=== PATIENT | female | born 1965 | race Caucasian/White ===

== ENCOUNTER 2018-02-05 12:37 | Observation (INO) | payer OTHER, SELFPAY ==
[2018-02-05] VITALS (7 sets, daily range): BP systolic 120–157; BP diastolic 66–79; PULSE 79–139; RESP 16–20; TEMP 36.6–38.1; O2SAT 90–96; BMI 25.7; BMI 28.1; BMI 28.2
--- NOTE | 2018-02-05 12:59 | EKG12_ITS ---
Test Reason : Blood Pressure : / mmHG Vent. Rate : 121 BPM Atrial Rate : 121 BPM P-R Int : 130 ms QRS Dur : 080 ms QT Int : 328 ms P-R-T Axes : 081 -32 083 degrees QTc Int : 465 ms Sinus tachycardia Left axis deviation Nonspecific ST and T wave abnormality Abnormal ECG Confirmed by LOIDA BRAXTON, MARS ([id number]), greeting card editor ÁNGEL SALVADOR ([id number]) on 02/08/2018 1:32:43 PM Referred By: JOVAN Confirmed By:MARS MARISCAL MD
--- NOTE | 2018-02-05 12:59 | RAD_ITS ---
STUDY: X-RAY CHEST REASON FOR EXAM: Female, 53 years old. Cough. Shortness of breath. TECHNIQUE: PA and lateral views of the chest. COMPARISON: None. FINDINGS: EKG electrodes are seen. Hyperinflation. Mild increased markings are seen in the lingular segment of the left upper lobe. Early infiltrate should be ruled out. There is no demonstrated pleural abnormality. Normal size heart. Normal mediastinum and summer. Normal visualized pulmonary arteries. Normal visualized aortic arch and descending thoracic aorta. Normal visualized thoracic spine. Normal visualized ribs, clavicles, and shoulders. There is no demonstrated abnormality of the visualized soft tissue structures of the upper abdomen. RAD/Chest PA and Lateral IMPRESSION: Hyperinflation. Increased markings in the lingular segment of the left upper lobe. Early infiltrate should be ruled out. Electronically Signed: Collin Alberto MD at 14:55 EST Tel [phone], Service support ,
[2018-02-05] MEDS: Acetaminophen 325 MG Tablet 650 MG PO (13:28)
[2018-02-05] MEDS: Ketorolac 15 MG/ML Vial IV (13:38)
[2018-02-05] MEDS: 0.9% Normal Saline 1,000 ML 1000 ML IV ×2 (13:38→18:07)
[2018-02-05 13:41] LABS: Absolute Lymphocyte Count 1.37 X10^3/ul (0.83-4.51); Basophil# 0.01 X10^3/uL; Basophil% 0.1 % (0-1); Eosinophil# 0.04 X10^3/uL; Eosinophils% 0.4 % (0-5); Hematocrit 42.4 % (37-47); Hemoglobin 13.9 g/dl (12.0-15.0); Lymphocyte # 1.37 X10^3/ul (4.0); Lymphocyte % 12.4 % (19-41); Mean Corp Hgb Conc 32.8 g/gl (32-36); Mean Corpuscular Hgb 29.2 pg (27.0-32.0); Mean Corpuscular Volume 89.1 fL (81-99); Mean Platelet Vol. 9.6 fl (6.2-12.0); Monocyte# 0.69 X10^3/uL; Monocyte% 6.2 % (0-10); Neutrophil # 8.97 X10^3/uL (2.7-7.7); Neutrophil % 80.8 % (47-70); Platelet Count 268 K/mm3 (150-450); RBC Distribution Width CV 13.6 % (11.6-14.6); RBC Distribution Width SD 44.3 fl (35.1-43.9); Red Blood Count 4.76 M/mm3 (4.2-5.4); White Blood Count 11.1 K/mm3 (4.4-11.0)
[2018-02-05 13:42] LABS: Anion Gap 11 (5-15); BUN 4 mg/dL (7-18); BUN/Creat Ratio 5.3 RATIO (10-20); Chloride 100 mmol/L (98-107); Creatinine, Serum 0.75 mg/dL (0.55-1.02); EST Glomerular Filtration Rate 86 mL/min (>60); Est Glom Filt Rate - Afr Amer 104 mL/min (>60); Estimated Creatinine Clearance 75.77 ml/min; Glucose 99 mg/dL (74-106); Potassium 3.2 mmol/L (3.5-5.1); Sodium Level 138 mmol/L (136-145)
[2018-02-05 13:45] LABS: POSITIVE COUNT NO; POSITIVE DIFFERENTIAL NO; POSITIVE MORPHOLOGY NO
[2018-02-05] MEDS: Ipratropium/Albuterol Sulfate 3 ML AMPUL.NEB INHALATION ×2 (13:52→21:22)
[2018-02-05] MEDS: Albuterol 2.5 MG/3 ML VIAL.NEB. INHALATION ×3 (13:52)
[2018-02-05] MEDS: Ceftriaxone 1 GM/50 ML BAG IV (15:31)
--- NOTE | 2018-02-05 15:34 | HP.PCM_ITS ---
Problem List (1) Sepsis Status: Acute Qualifiers: Sepsis type: sepsis due to unspecified organism Qualified Code(s): A41.9 - Sepsis, unspecified organism (2) PNA (pneumonia) Status: Acute Qualifiers: Pneumonia type: due to unspecified organism (3) COPD exacerbation Status: Acute (4) Asthma exacerbation Status: Acute Qualifiers: Asthma severity: unspecified severity Asthma persistence: unspecified Qualified Code(s): J45.901 - Unspecified asthma with (acute) exacerbation (5) COPD with asthma Status: Chronic (6) GERD (gastroesophageal reflux disease) Status: Chronic Qualifiers: Esophagitis presence: esophagitis presence not specified Qualified Code(s): K21.9 - Gastro-esophageal reflux disease without esophagitis (7) Anxiety and depression Status: Chronic History of Present Illness Date of Admission: 02/05/18 Chief Complaint: Dyspnea, cough The patient is a 53 y/o F w/ PMHx: Tobacco use, Chronic COPD/Asthma, GERD, Anxiety and Depression who presents to the [facility] ED on 02/05/18 with history of ongoing progressively worsening cough although unable to bring up notable sputum with dyspnea worse with any exertional efforts in addition to elevated temperatures at home > 101 x 3-4 days with wheezing associated. In the ED work- up included T 100.6, heart rate 139, BP 157/79, respiratory rate 20, initially 89-90% on room air, 95% on 2 L nasal cannula, CBC with WBC 11.1, hemoglobin 13.9, platelet 268 with left shift, BMP with potassium 3.2, rapid influenza negative, chest x-ray with hyperinflation with increased markings in the lingular segment of the left upper lobe concerning for early pneumonia. ED patient administered normal saline, Solu-Medrol, Toradol 50 mg IV x1, IV Rocephin, IV azithromycin, duonebs and albuterol per RT. Past Medical History Past Medical History (Chronic Problems): Chronic Problems COPD with asthma (Chronic) GERD (gastroesophageal reflux disease) (Chronic) Anxiety and depression (Chronic) Allergies acetaminophen [From Vicodin] Adverse Reaction (Verified 02/05/18 12:39) Nausea/Vom/Diarrhea bupropion HCl [From Wellbutrin] Adverse Reaction (Verified 02/05/18 12:39) Nausea/Vom/Diarrhea hydrocodone bitartrate [From Vicodin] Adverse Reaction (Verified 02/05/18 12:39) Nausea/Vom/Diarrhea tetracycline Adverse Reaction (Verified 02/05/18 12:39) Nausea/Vom/Diarrhea Home Medications: Ambulatory Orders Medication Instructions Recorded Albuterol Inhaler [Ventolin Hfa 2 puff INHALATION Q4H PRN PRN 02/05/18 (SP)] Cetirizine HCl [Zyrtec] 10 mg PO DAILY 02/05/18 Citalopram [Celexa] 20 mg PO DAILY 02/05/18 Fluticasone/Vilanterol [Breo 1 each IH DAILY 02/05/18 Ellipta 200-25 Mcg INH] Ibuprofen 400 mg PO PRN PRN 02/05/18 Ipratropium [place] [Atrovent Hfa] 17 mcg IH DAILY 02/05/18 Mometasone Furoate [Asmanex 110 110 mcg INHALATION DAILY 02/05/18 mcg Twisthaler] Montelukast [Singulair] 10 mg PO DAILY 02/05/18 Omeprazole 20 mg PO DAILY 02/05/18 Umeclidinium [place] Inhaler 62.5 mcg IH DAILY 02/05/18 [Incruse Ellipta Inhaler] Surgical History: - - Bilateral tubal ligation, right foot surgery, tonsillectomy. Psychiatric History: Anxiety, Depression PORTFOLIO LEAD History: No pertinent PORTFOLIO LEAD history Lives: With Family - Patient lives with her son. Smoking Status: Current every day smoker - Patient notes currently down to 1/2 pack/day cigarette tobacco usage but was higher previously. Tobacco Use: Cigarettes Alcohol: None Drugs: None - *Family History Maternal History Items: - - Patient notes a maternal and paternal family history of heart disease, diabetes, cancer. Paternal History Items: - - Patient notes a maternal and paternal family history of heart disease, diabetes, cancer. Review of Systems Constitutional: Reports: Anorexia, Chills, Fever, Malaise, Weakness, Fatigue. Denies: Weight Change HEENT: Denies: Head Aches, Sinus Congestion, Sinus Drainage Cardiovascular: Denies: Chest Pain, Palpitations Respiratory: Reports: Cough, Shortness of Breath, Shortness of breath at rest, Shortness of breath upon exertion, Wheezing. Denies: Sputum production Gastrointestinal: Denies: Abdominal Pain, Nausea, Vomiting Genitourinary: Denies: Dysuria Musculoskeletal: Reports: Back Pain. Denies: Joint Pain, Joint Tenderness Skin: Denies: Rash, Wounds Neurological: Denies: Numbness, Tingling, Focal weakness Psychiatric: Reports: Anxiety, Depression. Denies: Homicidal Ideations, Suicidal Ideations Hematologic/ Lymphatic: Denies: Easy Bruising, Easy Bleeding VTE Information - Inpt Only VTE Present on Admission: No VTE Mechan Device Prophylaxis: SCD's VTE Pharm Prophylaxis ordered?: Yes Patient Problems: Active and Suspected Problems Sepsis (Acute) PNA (pneumonia) (Acute) COPD exacerbation (Acute) Asthma exacerbation (Acute) Subjective: Seated upright in the ED bed, fatigued appearance. Objective: Physical Examination: General: awake, alert, oriented x 3 and cooperative, seated upright in the ED bed in no apparent distress, notes feeling improved since initial presentation. Skin: normal color, turgor, no icterus, cyanosis. HEENT: AT/NC, EOMI, PERRLA, dry MM, no carotid bruits or JVD noted. Lungs: Severely diffusely diminished, occasional soft end expiratory wheeze, mildly increased effort, no rales or rhonchi noted. Heart: Tachycardic with regular rhythm; no gallop, rub audible. Abdomen: soft, NTTP, ND, normal BS, no HSM. Extremities: no cyanosis, clubbing, or edema. Neurological: patient awake, alert, oriented x 3; cognitive function intact; pupils equally reactive to light and accomodation; cranial nerves II-XII grossly normal, moving all 4 extremities, no focal deficits, strength severely globally decreased secondary to acute presentation. Psychiatric: affect appears normal, no acute evidence of depressive or anxiety feelings. - Physical Exam Vital Signs Temp Pulse Resp BP Pulse Ox 100.1 F H 120 H 16 120/66 95 02/05/18 15:06 02/05/18 15:06 02/05/18 15:06 02/05/18 15:06 02/05/18 15:06 Oxygen Flow Rate (L/min) 2 Oxygen Delivery Method Nasal Cannula Weight: 150 lb Body Mass Index (BMI) 25.7 Microbiology Past 72 Hours 02/05/18 14:56 Influenza Types A,B Direct FA (ALAYNA) - Final Mucosa - Nose Laboratory Tests Past 24 Hrs 02/05/18 02/05/18 13:20 13:20 WBC 11.1 H RBC 4.76 Hgb 13.9 Hct 42.4 MCV 89.1 MCH 29.2 MCHC 32.8 RDW 13.6 RDW Differential 44.3 H Plt Count 268 MPV 9.6 Immature Gran % (Auto) 0.100 Neut % (Auto) 80.8 H Lymph % (Auto) 12.4 L [place] % (Auto) 6.2 Eos % (Auto) 0.4 Baso % (Auto) 0.1 Absolute Neuts (auto) 9.0 H Absolute Lymphs (auto) 1.37 Total Counted Not Reportable Sodium 138 Potassium 3.2 L Chloride 100 Carbon Dioxide 27.0 Anion Gap 11 BUN 4 L Creatinine 0.75 Estim Creat Clear Calc 75.77 Est GFR (MDRD) Af Amer 104 Est GFR (MDRD) Non-Af 86 BUN/Creatinine Ratio 5.3 L Glucose 99 Calcium 9.0 Assessment/Plan All Active Problems Sepsis (Acute) PNA (pneumonia) (Acute) COPD exacerbation (Acute) Asthma exacerbation (Acute) The patient is a 53 y/o F w/ PMHx: Tobacco use, Chronic COPD/Asthma, GERD, Anxiety and Depression who presents to the [facility] ED on 02/05/18 with history of ongoing progressively worsening cough although unable to bring up notable sputum with dyspnea worse with any exertional efforts in addition to elevated temperatures at home > 101 x 3-4 days with wheezing associated. (1) Acute Sepsis secondary to Acute on Chronic COPD/Asthma Exacerbation with Hypoxia (89% on RA) secondary to Community Acquired Pneumonia: CXR in the ED w/ his left lingula pneumonia. Will admit to [facility], maintain on oxygen with wean as tolerated to room air, continue ATC duonebs, PRN albuterol, maintain on IV solumedrol and on IV Rocephin and Azithromycin, HOB, IS parameters w/ pending sputum cultures, respiratory viral panel and urine antigens. (2) Hypokalemia: Admission K+ 3.2, supplementation given, repeat level in AM. (3) Tobacco Abuse: Encouraged cessation, inpatient consultation per RT, NR if desired. (4) Anxiety and Depression: Continue home citalopram regimen. (5) GERD: PPI. (6) DVT Prophylaxis: SCDs, lovenox. Code Visit Inpatient E&M: 29606 Init Hosp L3
--- NOTE | 2018-02-05 15:43 | ED.DCSUM_ITS ---
- ER Visit Summary Date of Service: 02/05/18 Chief Complaint: [wheezing] History of Present Illness: The patient is a 53 F [that presents with fever and cough for the last several days. She has a history of COPD she does not normally use home oxygen. No sputum production. She denies any chest pain. Appears well in no distress, she has no other complaints. She is a smoker.] Physical Examination: [General: The patient appears well and in no apparent distress. Patient is resting comfortably on cart. Skin: Warm, dry, no pallor noted. No rash. Head: Normocephalic, atraumatic Neck: Supple, nontender. Eye: PERRLA, EOMI ENT: Moist mucus membranes, pharynx within normal limits. Cardiovascular: Regular Rate and Rhythm, no gallups or rubs Respiratory: Patient is in no distress, no accessory muscle use, bilateral wheezing Musculoskeletal: normal ROM, no deformity, no tenderness, no swelling. 2+ radial and DP pulses symmetric. GI: No tenderness to palpation, no masses appreciated. No rebound, guarding, or rigidity noted. Neurological: A&O, normal strength and sensation. Psychiatric: Cooperative] Test Results: [] Emergency Department Course and Treatment: [Blood work overall unremarkable. Patient was given IV fluids. Chest x-ray shows left-sided infiltrate. Patient was started on antibiotics. Patient was given IV steroids. Patient pulse oximetry on reevaluation 89%, she is now stable on 2 L nasal cannula. I feel she requires admission for further treatment. Patient agreeable. Patient discussed with hospitalist for admission.] Treatment Plan: [see above] Disposition: [admission] Impression: [COPD Exacerbation, Hypoxia, Community Acquired Pneumonia] This note was generated with [employer] dictation software. It may contain incorrect words, spelling, and punctuation that were not noted in review of the chart prior to signing ED Disposition - Plan for ED Patient: Chief Complaint: Shortness of Breath Referrals: Tammi Myrick MD [Primary Care Provider] -
[2018-02-05] MEDS: MethylPREDNISolone 125 MG/2 ML Vial IV (16:05)
[2018-02-05] MEDS: 0.9% Normal Saline 1,000 ML 125 ML IV (19:13)
[2018-02-06] VITALS (7 sets, daily range): BP systolic 135–140; BP diastolic 63–73; PULSE 80–109; RESP 18–20; TEMP 36.6–37.1; O2SAT 90–96
--- NOTE | 2018-02-06 02:10 | NURSING ---
Pt's son in to get her keys around 0200 bc states locked his in his truck. Pt was asleep & son requested this RN to make her aware. Just made pt aware.
[2018-02-06] MEDS: 0.9% Normal Saline 1,000 ML 125 ML IV ×2 (02:18→09:38)
[2018-02-06] MEDS: Ipratropium/Albuterol Sulfate 3 ML AMPUL.NEB INHALATION ×3 (06:30→14:05)
[2018-02-06 07:09] LABS: Absolute Lymphocyte Count 0.93 X10^3/ul (0.83-4.51); Absolute Neutrophil Count 10.5 X10^3/uL (2.0-7.7); Basophil# 0.01 X10^3/uL; Basophil% 0.1 % (0-1); Eosinophil# 0.04 X10^3/uL; Eosinophils% 0.3 % (0-5); Hematocrit 36.1 % (37-47); Hemoglobin 11.9 g/dl (12.0-15.0); Lymphocyte # 0.93 X10^3/ul (4.0); Lymphocyte % 7.7 % (19-41); Mean Corpuscular Hgb 29.8 pg (27.0-32.0); Mean Corpuscular Volume 90.3 fL (81-99); Mean Platelet Vol. 9.9 fl (6.2-12.0); Monocyte# 0.53 X10^3/uL; Monocyte% 4.4 % (0-10); Neutrophil # 10.52 X10^3/uL (2.7-7.7); Neutrophil % 87.3 % (47-70); Platelet Count 245 K/mm3 (150-450); RBC Distribution Width CV 13.9 % (11.6-14.6); RBC Distribution Width SD 45.3 fl (35.1-43.9); White Blood Count 12.1 K/mm3 (4.4-11.0)
--- NOTE | 2018-02-06 07:12 | RAD_ITS ---
STUDY: X-RAY CHEST REASON FOR EXAM: Female, 53 years old. Shortness of breath TECHNIQUE: PA and lateral views of the chest. COMPARISON: 02/05/2018 FINDINGS: Coarsened prominence of interstitial lung markings. No confluent airspace opacity. There is no demonstrated pleural abnormality. Normal size heart. Normal mediastinum and summer. Normal visualized pulmonary arteries. Normal visualized aortic arch and descending thoracic aorta. Normal visualized thoracic spine. Normal visualized ribs, clavicles, and shoulders. There is no demonstrated abnormality of the visualized soft tissue structures of the upper abdomen. RAD/Chest PA and Lateral IMPRESSION: Chronic interstitial change with no evidence of acute cardiopulmonary disease. Electronically Signed: Guanakito Mcduffie MD at 4:06 EST Tel , Service support ,
[2018-02-06 07:16] LABS: POSITIVE COUNT NO; POSITIVE DIFFERENTIAL NO; POSITIVE MORPHOLOGY NO
[2018-02-06 07:22] LABS: Anion Gap 11 (5-15); BUN 6 mg/dL (7-18); BUN/Creat Ratio 9.2 RATIO (10-20); Calcium,Total 8.2 mg/dL (8.5-10.1); Chloride 107 mmol/L (98-107); Creatinine, Serum 0.65 mg/dL (0.55-1.02); EST Glomerular Filtration Rate 102 mL/min (>60); Est Glom Filt Rate - Afr Amer 123 mL/min (>60); Estimated Creatinine Clearance 87.43 ml/min; Glucose 132 mg/dL (74-106); Potassium 3.7 mmol/L (3.5-5.1); Sodium Level 141 mmol/L (136-145)
[2018-02-06] MEDS: Loratadine 10 MG Tablet PO (08:39)
[2018-02-06] MEDS: Citalopram 20 MG Tablet PO (08:39)
[2018-02-06] MEDS: Pantoprazole Sodium 20 MG Tablet PO (08:39)
[2018-02-06] MEDS: Montelukast 10 MG Tablet PO (08:42)
[2018-02-06] MEDS: Ceftriaxone 1 GM/50 ML BAG IV (09:39)
[2018-02-06] MEDS: Acetaminophen 325 MG Tablet 650 MG PO (10:46)
--- NOTE | 2018-02-06 11:10 | CPS ---
walked pt in lam around 800' w/o O2, SpO2 never dropped below 90% w/hr around 110bpm. SpO2=93% on room air resting.
--- NOTE | 2018-02-06 11:41 | PCM.DC ---
- Discharge Diagnoses Current Active Problems: Current Active and Chronic Problems Sepsis (Acute) PNA (pneumonia) (Acute) COPD exacerbation (Acute) COPD with asthma (Chronic) Asthma exacerbation (Acute) GERD (gastroesophageal reflux disease) (Chronic) Anxiety and depression (Chronic) You will use the following diet at home:: No restrictions Your food should be the consistency of: Regular Your liquids should be the consistency of: Regular/Thin Discharge Activity: Return to Normal Activity Return to work on:: 02/08/18 Weight Bearing Status: Full weight bearing Allergies/Adverse Reactions: Allergies acetaminophen [From Vicodin] Adverse Reaction (Verified 02/05/18 12:39) Nausea/Vom/Diarrhea bupropion HCl [From Wellbutrin] Adverse Reaction (Verified 02/05/18 12:39) Nausea/Vom/Diarrhea hydrocodone bitartrate [From Vicodin] Adverse Reaction (Verified 02/05/18 12:39) Nausea/Vom/Diarrhea tetracycline Adverse Reaction (Verified 02/05/18 12:39) Nausea/Vom/Diarrhea Medications to take at Discharge Albuterol Inhaler [Ventolin Hfa] 2 puff INHALATION Q4H PRN PRN 02/05/18 Cetirizine HCl [Zyrtec] 10 mg PO DAILY 02/05/18 Citalopram [Celexa] 20 mg PO DAILY 02/05/18 Ibuprofen 400 mg PO PRN PRN 02/05/18 Ipratropium [place] [Atrovent Hfa] 17 mcg IH DAILY 02/05/18 Montelukast [Singulair] 10 mg PO DAILY 02/05/18 Omeprazole 20 mg PO DAILY 02/05/18 Nicotine [Nicoderm] 14 mg TRANSDERM. DAILY #30 patch 02/06/18 Prednisone 10 mg PO UD #30 tablet 02/06/18 levoFLOXacin tablet [Levaquin tablet] 750 mg PO DAILY #5 tablet 02/06/18 The following prescriptions were given: levoFLOXacin tablet [Levaquin tablet] 750 mg PO DAILY #5 tablet Nicotine [Nicoderm] 14 mg TRANSDERM. DAILY #30 patch Prednisone 10 mg PO UD #30 tablet Primary Care Physician: Tammi Myrick MD [Primary Care Provider] - Please follow up with your Primary Care Physician in: in 2 weeks Test Results: Test results from this visit will be discussed in further detail at your follow-up appointment, if applicable.
--- NOTE | 2018-02-07 08:55 | PCM.DC.SUM ---
Discharge Date and Diagnosis Date of Admission: 02/05/18 Date of Discharge: 02/06/18 - Primary Discharge Diagnosis #1 acute sepsis secondary to community-acquired pneumonia #2 community-acquired [id number] bacterial #3 exacerbation of COPD #4 hypoxia secondary to chronic obstructive pulmonary disease and community acquired pneumonia #5 anxiety and depression #6 hypokalemia - Secondary Discharge Diagnosis Chronic Problems COPD with asthma (Chronic) GERD (gastroesophageal reflux disease) (Chronic) Anxiety and depression (Chronic) Hospital Course and Treatment Operations: None Procedures: None Summary of Care Provided: The patient is a 53 year old F was seen in the emergency room at [facility] with chief complaint of shortness of breath, fever, weakness, and dizziness times 3 days. Workup in the emergency room included a chest x-ray which indicated his markings in the lingular segment of the left upper lobe indicating pneumonia, patient's white blood cell count was elevated at 11.1, potassium was low at 3.2, and the patient's pulse ox on room air was 89%. Patient was admitted for acute sepsis from community-acquired pneumonia, treated with IV antibiotics, aerosol treatments, and repeat labs were obtained. On 02/06/18, patient was seen and examined: On examination she appeared in good health and spirits. Vital signs as documented. Skin warm and dry and without overt rashes. Neck without JVD. Lungs-mild scattered expiratory wheezes were noted. Heart exam notable for regular rhythm, normal sounds and absence of murmurs, rubs or gallops. Abdomen unremarkable and without evidence of organomegaly, masses, or abdominal aortic enlargement. Extremities nonedematous. Neuro: Cranial nerves II through XII are grossly intact, no focal motor deficits were noted. Psych: Patient was alert and oriented x3, she did not appear anxious or depressed. On 02/06/18, patient was seen and examined and felt to be in stable condition for discharge home, she was not hypoxic on discharge. - Physical Exam Vital Signs Temp Pulse Resp BP Pulse Ox 98.1 F 93 20 H 135/67 H 96 02/06/18 14:01 02/06/18 14:01 02/06/18 14:05 02/06/18 14:01 02/06/18 14:01 Oxygen Flow Rate (L/min) 2 Oxygen Delivery Method Room Air Weight: 74.5 kg Body Mass Index (BMI) 28.1 Intake and Output for Last 24 Hours 02/05/18 02/06/18 02/07/18 23:59 23:59 23:59 Intake Total 2924 / 2924 Output Total 2125 / 2125 Balance 799 / 799 Microbiology Past 72 Hours 02/05/18 21:35 Respiratory Panel (PCR) - Final Mucosa - Nose 02/05/18 22:30 Gram Stain - Final Sputum, Expectorated/Coughed 02/05/18 22:30 Streptococcus pneumoniae Antigen (M - Final Urine, Clean Catch 02/05/18 22:30 Legionella Antigen - Final Urine, Clean Catch 02/05/18 14:56 Influenza Types A,B Direct FA (ALAYNA) - Final Mucosa - Nose Discharge Activity: Return to Normal Activity Return to work on:: 02/08/18 Weight Bearing Status: Full weight bearing Home Medications: Medications to take at Discharge Albuterol Inhaler [Ventolin Hfa] 2 puff INHALATION Q4H PRN PRN 02/05/18 Cetirizine HCl [Zyrtec] 10 mg PO DAILY 02/05/18 Citalopram [Celexa] 20 mg PO DAILY 02/05/18 Ibuprofen 400 mg PO PRN PRN 02/05/18 Montelukast [Singulair] 10 mg PO DAILY 02/05/18 Omeprazole 20 mg PO DAILY 02/05/18 Ipratropium/Albuterol Respimat [Combivent Respimat Inhal [place]] 1 puff INHALATION 4X/DAY #1 inhaler 02/06/18 Mometasone Furoate [Asmanex Hfa] 13 gm IH BID #1 hfa.aer.ad 02/06/18 Nicotine [Nicoderm] 14 mg TRANSDERM. DAILY #30 patch 02/06/18 Prednisone 10 mg PO UD #30 tablet 02/06/18 levoFLOXacin tablet [Levaquin tablet] 750 mg PO DAILY #5 tablet 02/06/18 Following Prescrptions Were Given to Patient: levoFLOXacin tablet [Levaquin tablet] 750 mg PO DAILY #5 tablet Nicotine [Nicoderm] 14 mg TRANSDERM. DAILY #30 patch Prednisone 10 mg PO UD #30 tablet Mometasone Furoate [Asmanex Hfa] 13 gm IH BID #1 hfa.aer.ad Ipratropium/Albuterol Respimat [Combivent Respimat Inhal [place]] 1 puff INHALATION 4X/DAY #1 inhaler Primary Care Physician: Tammi Myrick MD [Primary Care Provider] - Please follow up with your Primary Care Physician in: in 2 weeks Disposition: Home Minutes spent on discharge:: 31 Patient Condition:: Stable Medical Necessity - Tobacco Use Smoking Status: Current every day smoker Tobacco Use: Cigarettes Meaningful Use Info Meaningful Use Diagnoses (Choose all that apply): None applicable Code Visit OBSV E&M: 84547 Observation care discharge
== END 2018-02-06 14:34 | disposition home or self-care (01) ==
LOC: ED 13:28 → MS3 16:15
PROVIDERS: Admitting Provider Family Medicine; Emergency Provider Emergency Medicine; Family Provider Internal Medicine; PCP Internal Medicine; Visit Provider Internal Medicine
DX: A41.9 Sepsis, unspecified organism (principal); J44.0 Chronic obstructive pulmonary disease with (acute) lower respiratory infection; J44.1 Chronic obstructive pulmonary disease with (acute) exacerbation; J15.9 Unspecified bacterial pneumonia; F41.9 Anxiety disorder, unspecified; E87.6 Hypokalemia; F32.9 Major depressive disorder, single episode, unspecified; K21.9 Gastro-esophageal reflux disease without esophagitis; Z79.899 Other long term (current) drug therapy; F17.210 Nicotine dependence, cigarettes, uncomplicated; R94.31 Abnormal electrocardiogram [ECG] [EKG]
CPT/HCPCS: 36415; 71046; 80048; 85025; 87070; 87205; 87449; 87633; 87804; 93005; 94640; 94761; 97802; 99283; 99406; J7030; A4216

== ENCOUNTER 2018-02-07 09:56 | Inpatient (IN) | payer OTHER, SELFPAY ==
[2018-02-05 18:00] VITALS: BMI 28.1
[2018-02-07] VITALS (15 sets, daily range): BP systolic 140–167; BP diastolic 75–93; PULSE 19–128; RESP 16–20; TEMP 36.5–36.9; O2SAT 91–98; BMI 27.4; BMI 24.8
--- NOTE | 2018-02-07 10:05 | EKG12_ITS ---
Test Reason : SOB Blood Pressure : / mmHG Vent. Rate : 107 BPM Atrial Rate : 107 BPM P-R Int : 126 ms QRS Dur : 080 ms QT Int : 364 ms P-R-T Axes : 071 -30 092 degrees QTc Int : 485 ms Sinus tachycardia Left axis deviation Septal infarct , age undetermined Abnormal ECG Confirmed by LOIDA BRAXTON, MARS ([id number]), desk editor ÁNGEL SALVADOR ([id number]) on 02/09/2018 2:35:08 PM Referred By: Alexandrea Williamson Confirmed By:MARS MARISCAL MD
[2018-02-07] MEDS: Ipratropium/Albuterol Sulfate 3 ML AMPUL.NEB INHALATION ×3 (10:13→20:01)
[2018-02-07] MEDS: MethylPREDNISolone 125 MG/2 ML Vial IV (10:13)
[2018-02-07] MEDS: 0.9% Normal Saline 1,000 ML IV.SOLN. 1000 ML IV (10:13)
[2018-02-07 10:26] LABS: Absolute Lymphocyte Count 3.45 X10^3/ul (0.83-4.51); Absolute Neutrophil Count 15.6 X10^3/uL (2.0-7.7); Basophil# 0.05 X10^3/uL; Basophil% 0.2 % (0-1); Lymphocyte # 3.45 X10^3/ul (4.0); Lymphocyte % 17.2 % (19-41); Mean Corp Hgb Conc 32.5 g/gl (32-36); Mean Corpuscular Volume 89.3 fL (81-99); Mean Platelet Vol. 9.6 fl (6.2-12.0); Monocyte# 0.89 X10^3/uL; Monocyte% 4.4 % (0-10); Neutrophil # 15.61 X10^3/uL (2.7-7.7); Neutrophil % 77.9 % (47-70); Platelet Count 300 K/mm3 (150-450); RBC Distribution Width CV 14.2 % (11.6-14.6); RBC Distribution Width SD 45.3 fl (35.1-43.9); Red Blood Count 4.48 M/mm3 (4.2-5.4); White Blood Count 20.1 K/mm3 (4.4-11.0)
[2018-02-07 10:27] LABS: Differential Indicated SCAN CRITERIA MET; POSITIVE COUNT NO; POSITIVE DIFFERENTIAL NO; POSITIVE MORPHOLOGY YES
[2018-02-07 10:31] LABS: Prothrombin Time (Protime)PT. 13.3 SECONDS (11.7-14.9)
[2018-02-07 10:32] LABS: Partial Thromboplast Time 29.3 Seconds (24.1-36.2)
--- NOTE | 2018-02-07 10:32 | RAD_ITS ---
STUDY: X-RAY CHEST REASON FOR EXAM: Female, 53 years old. History of pneumonia. TECHNIQUE: Single AP portable view of the chest. COMPARISON: Comparison is made with prior examination dated February 06, 2018. FINDINGS: EKG electrodes are seen. Since prior study, there has been a progression of the left upper lobe pneumonic infiltration. Follow-up is recommended. Stable increased markings in the right lung apex most likely secondary to scarring. Hyperinflation. There is no demonstrated pleural abnormality. Normal size heart. Normal mediastinum and summer. Normal visualized pulmonary arteries. Normal visualized aortic arch and descending thoracic aorta. Normal visualized thoracic spine. Normal visualized ribs, clavicles, and shoulders. There is no demonstrated abnormality of the visualized soft tissue structures of the upper abdomen. RAD/Chest 1 View (Portable) IMPRESSION: Increasing left upper lobe infiltration. Follow-up is recommended. Electronically Signed: Collin Alberto MD at 10:46 EST Tel [phone], Service support ,
[2018-02-07 10:41] LABS: ALB/GLOB Ratio 0.8 RATIO (0.9-2.4); AST(SGOT) 23 U/L (15-37); Alanine Aminotransfer ALT/SGPT 21 U/L (13-56); Albumin, Serum 3.4 g/dL (3.2-5.0); Alkaline Phosphatase 122 U/L (45-117); Anion Gap 10 (5-15); BUN 9 mg/dL (7-18); BUN/Creat Ratio 13.8 RATIO (10-20); Calcium,Total 8.8 mg/dL (8.5-10.1); Chloride 106 mmol/L (98-107); Creatinine, Serum 0.65 mg/dL (0.55-1.02); EST Glomerular Filtration Rate 102 mL/min (>60); Est Glom Filt Rate - Afr Amer 123 mL/min (>60); Estimated Creatinine Clearance 87.43 ml/min; Globulin 4.1 g/dL (2.2-4.2); Glucose 92 mg/dL (74-106); Potassium 3.3 mmol/L (3.5-5.1); Protein, Total 7.5 g/dL (6.4-8.2); Sodium Level 141 mmol/L (136-145)
[2018-02-07 10:47] LABS: Lactic Acid 1.6 mmol/L (0.4-2.0)
[2018-02-07 10:51] LABS: Atypical Lymphocyte 1+ %
[2018-02-07 11:43] LABS: Bacteria 0 SEEN /hpf (None Seen); Mucous, Urine 0 SEEN /hpf (<or=2+); Red Blood Cells-Urine 0 SEEN /hpf (0-5); White Blood Cells 0 SEEN /hpf (0-5)
[2018-02-07 11:46] LABS: Color, Urine Yellow (Yellow); Glucose, Dipstick Normal (Normal); Ketone-Dipstick Negative (Negative); Leukocyte Esterase-Dipstick Negative /ul (Negative); Nitrite-Dipstick Negative (Negative); Occult Blood-Urine Negative /ul (Negative); Protein-Dipstick 30 mg/dl (Negative); Urine Bilirubin Dipstick Negative (Negative); Urine Clarity Sl. Cloudy (Clear); Urine Urobilinogen Normal (Normal)
--- NOTE | 2018-02-07 11:46 | NURSING ---
DR SIOBHAN TREVIÑO
--- NOTE | 2018-02-07 11:48 | HP.PCM_ITS ---
History of Present Illness Date of Admission: 02/07/18 Chief Complaint: shortness of breath The patient is a 53 year old F with a past medical history of COPD and asthma, GERD, anxiety and depression. She was admitted to the ED on 02/07/2018 with a complaint of shortness of breath and cough. Patient was admitted on 02/05/2018 to [facility] and managed for sepsis due to community-acquired pneumonia and COPD exacerbation. She was discharged on 02/06/2018. When she went home, shortness of breath still persisted and got worse this morning. She had associated chills but denied any fever and also had a cough which is nonproductive. She was discharged on antibiotics which was due to start taking today. On admission the ED she was noted to be tachycardic with pulse around 107 and respiratory rate around 20. She was saturating at 97% on 2 L of oxygen. Labs showed potassium of 3.3 and initial troponin of 0.325. CBC showed white cell count of 20.1 bili must be stated the patient had been on steroids. EKG shows sinus tachycardia no acute ST changes. Chest x-ray showed increasing left upper lobe infiltrate. She is been admitted to be managed for community- acquired pneumonia. [] Past Medical History Past Medical History (Chronic Problems): Chronic Problems COPD with asthma (Chronic) GERD (gastroesophageal reflux disease) (Chronic) Anxiety and depression (Chronic) Allergies acetaminophen [From Vicodin] Adverse Reaction (Verified 02/07/18 09:57) Nausea/Vom/Diarrhea bupropion HCl [From Wellbutrin] Adverse Reaction (Verified 02/07/18 09:57) Nausea/Vom/Diarrhea hydrocodone bitartrate [From Vicodin] Adverse Reaction (Verified 02/07/18 09:57) Nausea/Vom/Diarrhea tetracycline Adverse Reaction (Verified 02/07/18 09:57) Nausea/Vom/Diarrhea Home Medications: Ambulatory Orders Medication Instructions Recorded Albuterol Inhaler [Ventolin Hfa] 2 puff INHALATION Q4H PRN PRN 02/05/18 Cetirizine HCl [Zyrtec] 10 mg PO DAILY 02/05/18 Citalopram [Celexa] 20 mg PO DAILY 02/05/18 Ibuprofen 400 mg PO PRN PRN 02/05/18 Montelukast [Singulair] 10 mg PO DAILY 02/05/18 Omeprazole 20 mg PO DAILY 02/05/18 Ipratropium/Albuterol Respimat 1 puff INHALATION 4X/DAY 02/07/18 [Combivent Respimat Inhal [place]] Mometasone Furoate [Asmanex Hfa] 13 gm IH BID 02/07/18 Nicotine [Nicoderm] 14 mg TRANSDERM. DAILY 02/07/18 Prednisone 10 mg PO UD 02/07/18 levoFLOXacin tablet [Levaquin 750 mg PO DAILY 02/07/18 tablet] Surgical History: - - Bilateral tubal ligation, right foot surgery, tonsillectomy. 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 Tobacco Use: Cigarettes Alcohol: Occasional Drugs: None - *Family History Maternal History Items: - - Patient notes a maternal and paternal family history of heart disease, diabetes, cancer. Paternal History Items: - - Patient notes a maternal and paternal family history of heart disease, diabetes, cancer. Review of Systems Constitutional: Reports: Chills, Malaise, Weakness, Fatigue. Denies: Anorexia, Fever Eyes: Denies: Blurred vision HEENT: Denies: Head Aches, Sinus Congestion, Sinus Drainage Cardiovascular: Reports: Palpitations. Denies: Chest Pain, Chest Pressure, Chest Tightness, Edema, Light Headedness, Orthopnea, Paroxysmal Noc. Dyspnea, Syncope Respiratory: Reports: Cough, Pleuritic Pain, Shortness of Breath, Shortness of breath at rest, Shortness of breath upon exertion, Sputum production, Wheezing Gastrointestinal: Denies: Abdominal Pain, Nausea, Vomiting Genitourinary: Denies: Dysuria Musculoskeletal: Denies: Joint Pain, Joint Tenderness Skin: Denies: Rash, Wounds Neurological: Denies: Numbness, Tingling, Focal weakness Psychiatric: Denies: Anxiety, Depression, Homicidal Ideations, Suicidal Ideations Hematologic/ Lymphatic: Denies: Easy Bruising, Easy Bleeding VTE Information - Inpt Only VTE Present on Admission: No VTE Pharm Prophylaxis ordered?: Yes - Physical Exam General: Alert, Oriented x3, Cooperative, - - in moderate respiratory distress, using accessory muscles of breathing HEENT: Atraumatic, PERRLA, EOMI, Normocephalic Oral: Dry Mucosa Neck: Supple, No JVD, Negative Carotid Bruits Lungs: - - decreased breath sounds bibasally, no wheezing or rhonchi. Cardiovascular: Regular Rhythm, Normal S1, Normal S2, No murmurs, Tachycardic Abdomen: Bowel Sounds Present, Soft, Non Tender, Non-Distended, No Hepato- splenomegaly Extremities: No clubbing, No cyanosis, No edema, Capillary Refill Less than 3 Seconds Skin: No rashes, No breakdown Musculoskeletal: No Tenderness to Palpation of Joints or Extremities Neurological: Cranial nerves II-XII grossly intact, Neuro grossly intact, Motor Exam 5/5 strength throughout Psych/Mental Status: Normal Affect, Appropriate, Alert and oriented to time, place, person, mood and affect Vital Signs Temp Pulse Resp BP Pulse Ox 98 F 122 H 18 147/91 H 97 02/07/18 10:17 02/07/18 10:28 02/07/18 10:28 02/07/18 10:17 02/07/18 10:17 Oxygen Flow Rate (L/min) 2 Oxygen Delivery Method Nasal Cannula Weight: 159 lb 14.4 oz Body Mass Index (BMI) 27.4 Laboratory Tests Past 24 Hrs 02/07/18 02/07/18 02/07/18 10:10 10:10 10:10 WBC 20.1 H RBC 4.48 Hgb 13.0 Hct 40.0 MCV 89.3 MCH 29.0 MCHC 32.5 RDW 14.2 RDW Differential 45.3 H Plt Count 300 MPV 9.6 Immature Gran % (Auto) 0.300 Neut % (Auto) 77.9 H Lymph % (Auto) 17.2 L [place] % (Auto) 4.4 Eos % (Auto) 0.0 Baso % (Auto) 0.2 Absolute Neuts (auto) 15.6 H Absolute Lymphs (auto) 3.45 Total Counted Not Reportable Atypical Lymphocytes 1+ PT 13.3 INR 1.0 APTT 29.3 Sodium 141 Potassium 3.3 L Chloride 106 Carbon Dioxide 25.0 Anion Gap 10 BUN 9 Creatinine 0.65 Estim Creat Clear Calc 87.43 Est GFR (MDRD) Af Amer 123 Est GFR (MDRD) Non-Af 102 BUN/Creatinine Ratio 13.8 Glucose 92 Lactic Acid Calcium 8.8 Total Bilirubin 0.40 AST 23 ALT 21 Alkaline Phosphatase 122 H Troponin I 0.325 H Total Protein 7.5 Albumin 3.4 Globulin 4.1 Albumin/Globulin Ratio 0.8 L Urine Color Urine Clarity Urine pH Ur Specific [place] Urine Protein Urine Glucose (UA) Urine Ketones Urine Occult Blood Urine Nitrite Urine Bilirubin Urine Urobilinogen Ur Leukocyte Esterase Urine RBC Urine WBC Ur Squamous Epith Cells Urine Bacteria Urine Mucus 02/07/18 02/07/18 10:10 11:40 WBC RBC Hgb Hct MCV MCH MCHC RDW RDW Differential Plt Count MPV Immature Gran % (Auto) Neut % (Auto) Lymph % (Auto) [place] % (Auto) Eos % (Auto) Baso % (Auto) Absolute Neuts (auto) Absolute Lymphs (auto) Total Counted Atypical Lymphocytes PT INR APTT Sodium Potassium Chloride Carbon Dioxide Anion Gap BUN Creatinine Estim Creat Clear Calc Est GFR (MDRD) Af Amer Est GFR (MDRD) Non-Af BUN/Creatinine Ratio Glucose Lactic Acid 1.6 Calcium Total Bilirubin AST ALT Alkaline Phosphatase Troponin I Total Protein Albumin Globulin Albumin/Globulin Ratio Urine Color Pending Urine Clarity Pending Urine pH Pending Ur Specific [place] Pending Urine Protein Pending Urine Glucose (UA) Pending Urine Ketones Pending Urine Occult Blood Pending Urine Nitrite Pending Urine Bilirubin Pending Urine Urobilinogen Pending Ur Leukocyte Esterase Pending Urine RBC Pending Urine WBC Pending Ur Squamous Epith Cells Pending Urine Bacteria Pending Urine Mucus Pending Assessment/Plan All Active Problems Sepsis (Acute) PNA (pneumonia) (Acute) COPD exacerbation (Acute) Asthma exacerbation (Acute) 53-year-old female admitted with a complaint of worsening shortness of breath. She was recently discharged after being admitted and managed for sepsis due to community-acquired pneumonia. 1. Sepsis due to community acquired pneumonia * SOB persisted and worsened when she went home; has associated pleuritic chest pain * CBC showed wbc of 20; ahd been on steroids * CXR showed increasing left upper infiltrate * admit to PCU with telemetry * CT chest showed no evidence of PE and findings suggestive of scarring at the lung apices with infiltration of the left upper lobe as in the left lower lobe and medial aspect of the right middle lobe. * (SIRS criteria 3/4)- tachypnea and tachycardia and leucocytosis; though leucocytosis likely due to steroids * start IV ceftriaxone and IV azithromycin * will order respiratory panel * influenza screen, urine for strep and legionella Ag and respiratory panel were negative (02/05/18), so will not repeat * blood cultures ordered and pending * breathing treatments with duonebs * IV solumedrol 40mg q8 * titrate oxygen to maintain sats >92% * 2. COPD: * stopped smoking 2 days ago with onset of current symptoms * smoked 1 pack daily * continuc breathing treatments and home inhalers * IV solumedrol as under 1. * 3. NSTEMI: * initial troponin ws 0.325, which trended up to 0.593. * EKG showed no acute ST changes. * \has strong smoking history which is a risk factor * will give aspirin 325mg once, plavix 300mg once, SC lovenox 70mcg x 1, and atorvastatin 40mg * SL nitroglycerin prn * consult cardiology 4. Hypokalemia: Potassium is 3.3. We will replace and monitor. 5. Anxiety and depression: not on any meds. Stable DVT prophylaxis: heparin GI prophylaxis: PPI Code Visit Inpatient E&M: 45798 Init Hosp L3
--- NOTE | 2018-02-07 11:54 | NURSING ---
PCU PNEUMONIA KORAM
[2018-02-07 11:57] LABS: Squamous Epithelial Cells - UA 0-5 SEEN /hpf (5-10)
[2018-02-07] MEDS: levoFLOXacin IV 750 MG/150 ML BAG 100 MG IV (12:04)
--- NOTE | 2018-02-07 12:07 | ED.VISSUMM ---
- ER Visit Summary Date of Service: 02/07/18 Chief Complaint: Shortness of breath History of Present Illness: The patient is a 53 F with shortness of breath. She was recently admitted to the hospital with pneumonia and she was treated with Levaquin, Combivent, and prednisone. She went home yesterday and when she got home she could not even walk to the bathroom because she was so short of breath. She presents today for worsening symptoms. She has a cough with shortness of breath and sputum. No fevers. No chest pain. No leg swelling. Physical Examination: Afebrile. Heart rate 118 and respiratory rate 19. Pulse ox 91% on room air. Normal blood pressure. Alert and oriented. Appears uncomfortable but not in distress. HEENT exam unremarkable. Heart is tachycardic but regular. Lung sounds diminished in all garnett. Abdomen soft and nontender. Calves soft and supple. Extremities unremarkable. Skin normal. Test Results: EKG showed sinus rhythm at a rate of 107. Chest x-ray showed increasing left upper lobe infiltrate. White count 20.1 and potassium 3.3. Coags normal. Troponin 0 0.325 and lactate 1.6. Cultures are pending. CTA chest pending. Emergency Department Course and Treatment: Patient presents with a known pneumonia and worsening symptoms. She meets sepsis criteria and a sepsis workup was pursued. Her white count is elevated but this is likely from a combination of sepsis and being on oral steroids. She remains mildly tachycardic and has an elevated troponin of 0.325. Her EKG did not show any definite signs of ischemia or infarction. I am not sure if this is heart strain or related to her infection. She has no history of coronary disease. Patient was maintained on a monitor. She will need admission. I spoke with Dr. Williamson, and we will check a CTA. This was ordered and will be done while in the emergency department. Patient will be admitted for further care. She was treated with Levaquin. She is not in septic shock. Treatment Plan: As above Disposition: Admission Impression: 1. Pneumonia 2. Elevated troponin 3. Sepsis This note was generated with [employer] software. It may contain incorrect words, spelling, and punctuation that were not noted in review of the chart prior to signing ED Disposition - Plan for ED Patient: Chief Complaint: Shortness of Breath
--- NOTE | 2018-02-07 12:11 | CT_ITS ---
STUDY: CTA CHEST REASON FOR EXAM: Female, 53 years old. Shortness of breath. COPD. Pneumonia. RADIATION DOSAGE (If Supplied By Facility): CTDIvol = ( 7.72 ) mGy, DLP = ( 349.53 ) mGycm TECHNIQUE: The examination was performed with the intravenous administration of 75 ml of Isovue 370 contrast material. Post-processing of the angiographic images was performed, with multiplanar reformation and 3D reconstruction. Individualized dose optimization techniques were used for this CT. COMPARISON: None. FINDINGS: Small bilateral benign appearing axillary lymph nodes. Normal enhancement of the main pulmonary artery and right and left pulmonary arteries. Normal enhancement of the bilateral peripheral pulmonary arteries. There is no demonstrated pulmonary embolism. Normal thoracic aorta and visualized great vessels. There is no demonstrated aortic dissection. Normal heart and pericardium. Normal mediastinum. Normal hilar regions. Normal visualized trachea and bronchi. Hyperinflation. Increased markings with a resultant from groundglass appearance and thickening interstitium in the lung apices suggestive of scarring. Diffuse interstitial thickening with multiple areas of groundglass appearance in the left upper lobe abutting the left major fissure suggestive of a pneumonic infiltrate. Focal groundglass appearance is seen in the anterior medial aspect of the right upper lobe. Focal areas of patchy groundglass appearance in the posterior aspect of the right middle lobe as well as in the left lower lobe. Focal pleural thickening along the lateral aspect of the right lower lobe. Normal chest wall structures. There are degenerative changes of thoracic spine. Normal visualized upper abdomen. CT/CTA Chest W/WO Contrast IMPRESSION: No evidence of pulmonary embolism. Findings suggestive of scarring at the lung apices with infiltration in the left upper lobe as well as in the left lower lobe and medial aspect of the right middle lobe. Focal pleural thickening in the peripheral lateral aspect of the right lower lobe. Electronically Signed: Collin Alberto MD at 13:01 EST Tel [phone], Service support ,
[2018-02-07] MEDS: Enoxaparin 60 MG/0.6 ML Syringe SC (15:42)
[2018-02-07] MEDS: 0.9% Normal Saline 1,000 ML 125 ML IV ×2 (15:48→22:17)
[2018-02-07] MEDS: Atorvastatin Calcium 40 MG Tablet PO (15:53)
[2018-02-07] MEDS: Clopidogrel Bisulfate 300 MG Tablet PO (15:54)
[2018-02-07] MEDS: Aspirin 325 MG Tablet PO (17:16)
[2018-02-07 17:30] LABS: Cholesterol 185 mg/dL (200); High Density Lipoprotein 30 mg/dL; Triglycerides 123 mg/dL; Very Low Density Lipoprotein 25 mg/dL (5-40)
--- NOTE | 2018-02-07 19:55 | ECHOD_ITS ---
Reason For Study: dyspnea/SOB Procedure This was a 2D Doppler, Color Flow transthoracic echocardiogram. The study was technically difficult. Exam performed portable in patient room. Left Ventricle Normal LV size. Mild segmental systolic dysfunction (see wall motion). The estimated ejection fraction is 50 %. No evidence for diastolic dysfunction. Mid-Anterior : Hypokinetic. Mid-Lateral : Hypokinetic. Mid-inferoseptal : Hypokinetic. Mid-anteroseptal : Hypokinetic. Anterior [place] : Hypokinetic. Lateral [place] : Hypokinetic. Septal [place] : Hypokinetic. Right Ventricle Normal RV size. Normal systolic function. Atria Normal left atrium. Normal right atrium. No doppler evidence for ASD. Mitral Valve There is no mitral annular calcification. Normal mitral valve. Mild (1+) mitral valve insufficiency. Tricuspid Valve The tricuspid valve is not well visualized. Trivial tricuspid valve insufficiency. Right ventricular systolic pressure estimated to be 31 mmHg. Aortic Valve The aortic valve is not well visualized. Pulmonic Valve The pulmonic valve is not well visualized. Great Vessels Normal sized aortic root. Pericardium/Pleural No pericardial effusion. MMode/2D Measurements & Calculations LVIDd: 5.3 cm IVSd: 0.86 cm Ao root diam: 3.0 cm LVIDs: 3.8 cm LVPWd: 1.0 cm RVDd: 2.6 cm FS: 28.7 % LAV(MOD-bp): 42.7 ml LA A4 area: 13.0 cm2 LA dimension(2D): 3.5 cm LAV(MOD-bp) Indexed: 25.1 ml/m2 LAV(MOD-sp2): 51.3 ml LAV(MOD-sp4): 32.3 ml RA A4 area: 12.6 cm2 Doppler Measurements & Calculations MV E max fern: 118.2 cm/sec Ao V2 max: 159.0 cm/sec LV V1 max: 119.0 cm/sec MV A max fern: 89.5 cm/sec Ao max P.1 mmHg LV V1 max P.7 mmHg MV E/A: 1.3 TR max fern: 263.1 cm/sec TR max P.7 mmHg Interpretation Summary The study was technically difficult. Mild segmental systolic dysfunction (see wall motion). The estimated ejection fraction is 50 %. Mild (1+) mitral valve insufficiency. Trivial tricuspid valve insufficiency. Right ventricular systolic pressure estimated to be 31 mmHg. No evidence for diastolic dysfunction. Ordering Physician: Rao Chavez Referring Physician: Alexandrea Williamson Performed By: Anjana Rodrigues, VALERIECS, RVT
--- NOTE | 2018-02-07 19:57 | PCM.CONS.C ---
Problem List (1) Abnormal cardiac enzyme level Status: Acute (2) Abnormal electrocardiogram Status: Acute (3) PNA (pneumonia) Status: Acute Qualifiers: Pneumonia type: due to unspecified organism (4) COPD exacerbation Status: Acute Reason for Consult Date of Consultation: 02/07/18 History of Present Illness: The patient is a 53 year old white female who claims to have no past cardiovascular history but does have a history of underlying COPD who was recently diagnosed with pneumonia and recently released from [facility] who presents back for continued concerns of fever, shortness of breath/dyspnea, weakness, and subsequently underwent additional evaluation which included cardiac enzyme level with notation of indeterminate troponin I levels and an ECG which was considered abnormal demonstrating evidence of sinus tachycardia with left axis deviation with a septal VT pattern of indeterminate age cannot be excluded. She states that she, when healthy, is otherwise active and working. She denies any previous episodes of concerning chest discomfort. She does have underlying COPD. Thus she has had concerns of shortness of breath and dyspnea. There has been no near syncope or syncope. She has not had any obvious concerns of lower extremity peripheral pitting edema. She does not recall going through any cardiovascular testing in the past. She states since being readmitted to the hospital, placed upon albuterol nebulizers, O2 supplements, and receiving IV antibiotics she feels better. However she notes she is not back to her normal self. She has undergone additional evaluation. This included radiologic studies. A chest CT scan was performed. She had no great vessel disease or thromboembolic disease. She was reported as having infiltrative related issues. Please see official report. [] Past Medical History Allergies/Adverse Reactions: Allergies acetaminophen [From Vicodin] Adverse Reaction (Verified 02/07/18 09:57) Nausea/Vom/Diarrhea bupropion HCl [From Wellbutrin] Adverse Reaction (Verified 02/07/18 09:57) Nausea/Vom/Diarrhea hydrocodone bitartrate [From Vicodin] Adverse Reaction (Verified 02/07/18 09:57) Nausea/Vom/Diarrhea tetracycline Adverse Reaction (Verified 02/07/18 09:57) Nausea/Vom/Diarrhea Home Medications: Ambulatory Orders Medication Instructions Recorded Albuterol Inhaler [Ventolin Hfa] 2 puff INHALATION Q4H PRN PRN 02/05/18 Cetirizine HCl [Zyrtec] 10 mg PO DAILY 02/05/18 Citalopram [Celexa] 20 mg PO DAILY 02/05/18 Ibuprofen 400 mg PO PRN PRN 02/05/18 Montelukast [Singulair] 10 mg PO DAILY 02/05/18 Omeprazole 20 mg PO DAILY 02/05/18 Ipratropium/Albuterol Respimat 1 puff INHALATION 4X/DAY 02/07/18 [Combivent Respimat Inhal [place]] Mometasone Furoate [Asmanex Hfa] 13 gm IH BID 02/07/18 Nicotine [Nicoderm] 14 mg TRANSDERM. DAILY 02/07/18 Prednisone 10 mg PO UD 02/07/18 levoFLOXacin tablet [Levaquin 750 mg PO DAILY 02/07/18 tablet] Past Medical History (Chronic Problems): Chronic Problems COPD with asthma (Chronic) GERD (gastroesophageal reflux disease) (Chronic) Anxiety and depression (Chronic) Surgical History: - - Bilateral tubal ligation, right foot surgery, tonsillectomy. Psychiatric History: Anxiety, Depression MILLER HEAD History: No pertinent MILLER HEAD history - *Family History Maternal History Items: - - Patient notes a maternal and paternal family history of heart disease, diabetes, cancer. Paternal History Items: - - Patient notes a maternal and paternal family history of heart disease, diabetes, cancer. Lives: Alone Smoking Status: Former smoker - quit 2 days ago; used to smoke ~ 1 pack daily of cigarettes. Tobacco Use: Cigarettes Alcohol: Occasional Drugs: None Review of Systems - Review of Systems General: Reports: Fever, Weakness. Denies: Fatigue, Night Sweats Cardiovascular: Reports: Shortness of Breath. Denies: Chest Discomfort, Orthopnea, PND, Peripheral Edema, Palpitations, Lightheadedness, Dizziness, Near Syncope, Syncope Respiratory: Reports: Cough, Shortness of Breath. Denies: Hemoptysis Gastrointestinal: Denies: Hematemesis, Hematochezia, Melena Genitourinary: Denies: Dysuria, Hematuria Skin: Denies: Rash Subjectve: This is a 53-year-old white female who appears to be resting reasonably comfortably at the moment in no acute distress. Objective: Vital Signs Temp Pulse Resp BP Pulse Ox 98.4 F 99 17 167/88 H 95 02/07/18 17:16 02/07/18 19:00 02/07/18 17:16 02/07/18 17:16 02/07/18 17:16 Oxygen Flow Rate (L/min) 2 Oxygen Delivery Method Nasal Cannula Weight: 144 lb 9.972 oz Body Mass Index (BMI) 24.8 Intake and Output for Last 24 Hours 02/05/18 02/06/18 02/07/18 23:59 23:59 23:59 Intake Total 739 / 739 Balance 739 / 739 General: Awake, Alert, Oriented x 3, Cooperative, No Acute Distress HEENT: Atraumatic, Normocephalic, PERRL, EOMI, Sclera Non Icteric Oral: Moist Mucosa Neck: Supple, Good ROM, No JVD Lungs: Rhonchi - Scattered Cardiovascular: Regular Rhythm, Normal S1, Normal S2 Vascular: No Carotid Bruits Abdomen: Bowel Sounds Present, Soft, Non Tender Extremities: No Cyanosis, No Clubbing, No edema Neurological: No Focal Motor or Sensory Deficit Psych/Mental Status: Appropriate 02/07/18 10:10: WBC 20.1 H, RBC 4.48, Hgb 13.0, Hct 40.0, MCV 89.3, MCH 29.0, MCHC 32.5, RDW 14.2, RDW Differential 45.3 H, Plt Count 300, MPV 9.6, Immature Gran % (Auto) 0.300, Neut % (Auto) 77.9 H, Lymph % (Auto) 17.2 L, [place] % (Auto) 4.4, Eos % (Auto) 0.0, Baso % (Auto) 0.2, Absolute Neuts (auto) 15.6 H, Total Counted Not Reportable 02/07/18 10:10: PT 13.3, INR 1.0, APTT 29.3 02/07/18 10:10: Sodium 141, Potassium 3.3 L, Chloride 106, Carbon Dioxide 25.0, Anion Gap 10, BUN 9, Creatinine 0.65, Est GFR (MDRD) Af Amer 123, Est GFR (MDRD) Non-Af 102, BUN/Creatinine Ratio 13.8, Glucose 92, Calcium 8.8, Total Bilirubin 0.40, Troponin I 0.325 H 02/07/18 10:10: Lactic Acid 1.6 02/07/18 11:40: Urine Color Yellow, Urine Clarity Sl. Cloudy, Urine pH 7.0, Ur Specific [place] 1.010, Urine Protein 30 H, Urine Glucose (UA) Normal, Urine Ketones Negative, Urine Occult Blood Negative, Urine Nitrite Negative, Urine Bilirubin Negative, Urine Urobilinogen Normal, Ur Leukocyte Esterase Negative, Urine RBC 0 SEEN, Urine WBC 0 SEEN 02/07/18 14:00: Troponin I 0.593 H 02/07/18 14:00: Triglycerides 123, Cholesterol 185, LDL Cholesterol 130, VLDL Cholesterol 25, HDL Cholesterol 30 L 02/07/18 16:25: Troponin I 0.439 H Rhythm: Sinus rhythm EKG: As noted above Chest CT Scan: As noted above Assessment/Plan 1. Abnormal cardiac enzymes The patient does have abnormal cardiac enzymes. This may be related to her underlying pulmonary disease process and potentially a type II non-ST segment elevation VT/supply demand mismatch event as opposed to a primary acute coronary syndrome event. She has been evaluated for obvious thromboembolic disease which has been negative. She has had no evidence of underlying acute REGISTERED DIETICIAN event or an acute renal insufficiency. Is unclear as to whether or not there is been any concerns of a true underlying sepsis event secondary to her concerns of pneumonia. At the present time she will continue to be followed. Her cardiac enzymes are decreasing. Her ECG can be followed. An echocardiogram can be requested to evaluate her left ventricular wall motion and systolic function. As she improves from her pulmonary disease process consideration can be given to further evaluation of the possibility of coronary artery disease either noninvasively with an exercise tolerance test/imaging study or invasively with diagnostic cardiac catheterization depending upon her clinical scenario, etc. In the interim she can continue medical management. This could include agents such as aspirin and antiplatelet therapy. Beta-magnus therapy may be reasonable she can tolerate it from a pulmonary standpoint. She also should be considered for lipid-lowering therapy. 2. Abnormal ECG She will continue evaluation care as noted above. 3. Pneumonia She will continue evaluation care per internal medicine. 4. COPD She states she does follow with [facility] pulmonology as an outpatient for her underlying COPD. Overall the present time the patient will continue to be monitored. She will have follow-up laboratory studies, ECGs, and echocardiograms as deemed appropriate. Again she may need further noninvasive or invasive cardiovascular evaluation and care going forward when she is able to from a pulmonary disease/infectious disease process. In the interim she will continue medical therapy as deemed appropriate. This note was generated using a voice recognition system and there may be incorrect words, spelling or punctuation that were not noted when reviewing the office note prior to saving.
--- NOTE | 2018-02-07 20:01 | CON.PCM_ITS ---
Problem List (1) Abnormal cardiac enzyme level Status: Acute (2) Abnormal electrocardiogram Status: Acute (3) PNA (pneumonia) Status: Acute Qualifiers: Pneumonia type: due to unspecified organism (4) COPD exacerbation Status: Acute Reason for Consult Date of Consultation: 02/07/18 History of Present Illness: The patient is a 53 year old white female who claims to have no past cardiovascular history but does have a history of underlying COPD who was recently diagnosed with pneumonia and recently released from [facility] who presents back for continued concerns of fever, shortness of breath/dyspnea, weakness, and subsequently underwent additional evaluation which included cardiac enzyme level with notation of indeterminate troponin I levels and an ECG which was considered abnormal demonstrating evidence of sinus tachycardia with left axis deviation with a septal SC pattern of indeterminate age cannot be excluded. She states that she, when healthy, is otherwise active and working. She denies any previous episodes of concerning chest discomfort. She does have underlying COPD. Thus she has had concerns of shortness of breath and dyspnea. There has been no near syncope or syncope. She has not had any obvious concerns of lower extremity peripheral pitting edema. She does not recall going through any cardiovascular testing in the past. She states since being readmitted to the hospital, placed upon albuterol nebulizers, O2 supplements, and receiving IV antibiotics she feels better. However she notes she is not back to her normal self. She has undergone additional evaluation. This included radiologic studies. A chest CT scan was performed. She had no great vessel disease or thromboembolic disease. She was reported as having infiltrative related issues. Please see official report. [] Past Medical History Allergies/Adverse Reactions: Allergies acetaminophen [From Vicodin] Adverse Reaction (Verified 02/07/18 09:57) Nausea/Vom/Diarrhea bupropion HCl [From Wellbutrin] Adverse Reaction (Verified 02/07/18 09:57) Nausea/Vom/Diarrhea hydrocodone bitartrate [From Vicodin] Adverse Reaction (Verified 02/07/18 09:57) Nausea/Vom/Diarrhea tetracycline Adverse Reaction (Verified 02/07/18 09:57) Nausea/Vom/Diarrhea Home Medications: Ambulatory Orders Medication Instructions Recorded Albuterol Inhaler [Ventolin Hfa] 2 puff INHALATION Q4H PRN PRN 02/05/18 Cetirizine HCl [Zyrtec] 10 mg PO DAILY 02/05/18 Citalopram [Celexa] 20 mg PO DAILY 02/05/18 Ibuprofen 400 mg PO PRN PRN 02/05/18 Montelukast [Singulair] 10 mg PO DAILY 02/05/18 Omeprazole 20 mg PO DAILY 02/05/18 Ipratropium/Albuterol Respimat 1 puff INHALATION 4X/DAY 02/07/18 [Combivent Respimat Inhal [place]] Mometasone Furoate [Asmanex Hfa] 13 gm IH BID 02/07/18 Nicotine [Nicoderm] 14 mg TRANSDERM. DAILY 02/07/18 Prednisone 10 mg PO UD 02/07/18 levoFLOXacin tablet [Levaquin 750 mg PO DAILY 02/07/18 tablet] Past Medical History (Chronic Problems): Chronic Problems COPD with asthma (Chronic) GERD (gastroesophageal reflux disease) (Chronic) Anxiety and depression (Chronic) Surgical History: - - Bilateral tubal ligation, right foot surgery, tonsillectomy. 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 Paternal History Items: - - Patient notes a maternal and paternal family history of heart disease, diabetes, cancer. Lives: Alone Smoking Status: Former smoker - quit 2 days ago; used to smoke ~ 1 pack daily of cigarettes. Tobacco Use: Cigarettes Alcohol: Occasional Drugs: None Review of Systems - Review of Systems General: Reports: Fever, Weakness. Denies: Fatigue, Night Sweats Cardiovascular: Reports: Shortness of Breath. Denies: Chest Discomfort, Orthopnea, PND, Peripheral Edema, Palpitations, Lightheadedness, Dizziness, Near Syncope, Syncope Respiratory: Reports: Cough, Shortness of Breath. Denies: Hemoptysis Gastrointestinal: Denies: Hematemesis, Hematochezia, Melena Genitourinary: Denies: Dysuria, Hematuria Skin: Denies: Rash Subjectve: This is a 53-year-old white female who appears to be resting reasonably comfortably at the moment in no acute distress. Objective: Vital Signs Temp Pulse Resp BP Pulse Ox 98.4 F 99 17 167/88 H 95 02/07/18 17:16 02/07/18 19:00 02/07/18 17:16 02/07/18 17:16 02/07/18 17:16 Oxygen Flow Rate (L/min) 2 Oxygen Delivery Method Nasal Cannula Weight: 144 lb 9.972 oz Body Mass Index (BMI) 24.8 Intake and Output for Last 24 Hours 02/05/18 02/06/18 02/07/18 23:59 23:59 23:59 Intake Total 739 / 739 Balance 739 / 739 General: Awake, Alert, Oriented x 3, Cooperative, No Acute Distress HEENT: Atraumatic, Normocephalic, PERRL, EOMI, Sclera Non Icteric Oral: Moist Mucosa Neck: Supple, Good ROM, No JVD Lungs: Rhonchi - Scattered Cardiovascular: Regular Rhythm, Normal S1, Normal S2 Vascular: No Carotid Bruits Abdomen: Bowel Sounds Present, Soft, Non Tender Extremities: No Cyanosis, No Clubbing, No edema Neurological: No Focal Motor or Sensory Deficit Psych/Mental Status: Appropriate 02/07/18 10:10: WBC 20.1 H, RBC 4.48, Hgb 13.0, Hct 40.0, MCV 89.3, MCH 29.0, MCHC 32.5, RDW 14.2, RDW Differential 45.3 H, Plt Count 300, MPV 9.6, Immature Gran % (Auto) 0.300, Neut % (Auto) 77.9 H, Lymph % (Auto) 17.2 L, [place] % (Auto) 4.4, Eos % (Auto) 0.0, Baso % (Auto) 0.2, Absolute Neuts (auto) 15.6 H, Total Counted Not Reportable 02/07/18 10:10: PT 13.3, INR 1.0, APTT 29.3 02/07/18 10:10: Sodium 141, Potassium 3.3 L, Chloride 106, Carbon Dioxide 25.0, Anion Gap 10, BUN 9, Creatinine 0.65, Est GFR (MDRD) Af Amer 123, Est GFR (MDRD) Non-Af 102, BUN/Creatinine Ratio 13.8, Glucose 92, Calcium 8.8, Total Bilirubin 0.40, Troponin I 0.325 H 02/07/18 10:10: Lactic Acid 1.6 02/07/18 11:40: Urine Color Yellow, Urine Clarity Sl. Cloudy, Urine pH 7.0, Ur Specific [place] 1.010, Urine Protein 30 H, Urine Glucose (UA) Normal, Urine Ketones Negative, Urine Occult Blood Negative, Urine Nitrite Negative, Urine Bilirubin Negative, Urine Urobilinogen Normal, Ur Leukocyte Esterase Negative, Urine RBC 0 SEEN, Urine WBC 0 SEEN 02/07/18 14:00: Troponin I 0.593 H 02/07/18 14:00: Triglycerides 123, Cholesterol 185, LDL Cholesterol 130, VLDL Cholesterol 25, HDL Cholesterol 30 L 02/07/18 16:25: Troponin I 0.439 H Rhythm: Sinus rhythm EKG: As noted above Chest CT Scan: As noted above Assessment/Plan 1. Abnormal cardiac enzymes The patient does have abnormal cardiac enzymes. This may be related to her underlying pulmonary disease process and potentially a type II non-ST segment elevation SC/supply demand mismatch event as opposed to a primary acute coronary syndrome event. She has been evaluated for obvious thromboembolic disease which has been negative. She has had no evidence of underlying acute ONION FARMER event or an acute renal insufficiency. Is unclear as to whether or not there is been any concerns of a true underlying sepsis event secondary to her concerns of pneumonia. At the present time she will continue to be followed. Her cardiac enzymes are decreasing. Her ECG can be followed. An echocardiogram can be requested to evaluate her left ventricular wall motion and systolic function. As she improves from her pulmonary disease process consideration can be given to further evaluation of the possibility of coronary artery disease either noninvasively with an exercise tolerance test/imaging study or invasively with diagnostic cardiac catheterization depending upon her clinical scenario, etc. In the interim she can continue medical management. This could include agents such as aspirin and antiplatelet therapy. Beta-magnus therapy may be reasonable she can tolerate it from a pulmonary standpoint. She also should be considered for lipid-lowering therapy. 2. Abnormal ECG She will continue evaluation care as noted above. 3. Pneumonia She will continue evaluation care per internal medicine. 4. COPD She states she does follow with [facility] pulmonology as an outpatient for her underlying COPD. Overall the present time the patient will continue to be monitored. She will have follow-up laboratory studies, ECGs, and echocardiograms as deemed appropriate. Again she may need further noninvasive or invasive cardiovascular evaluation and care going forward when she is able to from a pulmonary disease/infectious disease process. In the interim she will continue medical therapy as deemed appropriate. This note was generated using a voice recognition system and there may be incorrect words, spelling or punctuation that were not noted when reviewing the office note prior to saving.
[2018-02-07] MEDS: Budesonide Respules 0.5 MG/2 ML AMPUL.NEB. INHALATION (20:06)
[2018-02-07] MEDS: DiphenhydrAMINE 25 MG Capsule PO (22:12)
[2018-02-07] MEDS: 0.9% NaCl Peripheral Flush Adult/Peds IV (22:18)
[2018-02-08] VITALS (16 sets, daily range): BP systolic 130–155; BP diastolic 72–82; PULSE 75–105; RESP 16–18; TEMP 36.4–36.8; O2SAT 92–97
--- NOTE | 2018-02-08 05:55 | EKG12_ITS ---
Test Reason : AM EKG Blood Pressure : / mmHG Vent. Rate : 079 BPM Atrial Rate : 079 BPM P-R Int : 114 ms QRS Dur : 082 ms QT Int : 450 ms P-R-T Axes : 065 -10 121 degrees QTc Int : 516 ms Normal sinus rhythm T wave abnormality, consider anterolateral ischemia Prolonged QT Abnormal ECG Confirmed by LOIDA BRAXTON, MARS ([id number]), acquisition editor ÁNGEL SALVADOR ([id number] on 02/09/2018 2:41:11 PM Referred By: Alexandrea Williamson Confirmed By:MARS MARISCAL MD
[2018-02-08] MEDS: Budesonide Respules 0.5 MG/2 ML AMPUL.NEB. INHALATION (06:44)
[2018-02-08] MEDS: Ipratropium/Albuterol Sulfate 3 ML AMPUL.NEB INHALATION ×4 (06:44→19:21)
[2018-02-08 06:45] LABS: Absolute Lymphocyte Count 1.51 X10^3/ul (0.83-4.51); Absolute Neutrophil Count 11.6 X10^3/uL (2.0-7.7); Basophil# 0.02 X10^3/uL; Basophil% 0.1 % (0-1); Hematocrit 36.9 % (37-47); Hemoglobin 11.9 g/dl (12.0-15.0); Lymphocyte # 1.51 X10^3/ul (4.0); Lymphocyte % 10.9 % (19-41); Mean Corp Hgb Conc 32.2 g/gl (32-36); Mean Corpuscular Hgb 29.4 pg (27.0-32.0); Mean Corpuscular Volume 91.1 fL (81-99); Monocyte# 0.68 X10^3/uL; Monocyte% 4.9 % (0-10); Neutrophil # 11.64 X10^3/uL (2.7-7.7); Neutrophil % 83.7 % (47-70); Platelet Count 264 K/mm3 (150-450); RBC Distribution Width CV 14.2 % (11.6-14.6); RBC Distribution Width SD 47.1 fl (35.1-43.9); Red Blood Count 4.05 M/mm3 (4.2-5.4); White Blood Count 13.9 K/mm3 (4.4-11.0)
[2018-02-08 06:47] LABS: POSITIVE COUNT NO; POSITIVE DIFFERENTIAL NO; POSITIVE MORPHOLOGY NO
[2018-02-08 07:10] LABS: Anion Gap 8 (5-15); BUN 10 mg/dL (7-18); BUN/Creat Ratio 13.1 RATIO (10-20); Calcium,Total 8.4 mg/dL (8.5-10.1); Chloride 108 mmol/L (98-107); Creatinine, Serum 0.76 mg/dL (0.55-1.02); EST Glomerular Filtration Rate 85 mL/min (>60); Est Glom Filt Rate - Afr Amer 102 mL/min (>60); Estimated Creatinine Clearance 74.77 ml/min; Glucose 125 mg/dL (74-106); Potassium 4.2 mmol/L (3.5-5.1); Sodium Level 142 mmol/L (136-145)
[2018-02-08] MEDS: Aspirin 81 MG TAB.CHEW PO (09:50)
[2018-02-08] MEDS: Ceftriaxone 1 GM/50 ML BAG IV (09:50)
[2018-02-08] MEDS: Clopidogrel Bisulfate 75 MG Tablet PO (09:50)
[2018-02-08] MEDS: Enoxaparin 40 MG/0.4 ML Syringe SC (09:55)
[2018-02-08] MEDS: Montelukast 10 MG Tablet PO (09:55)
[2018-02-08] MEDS: Citalopram 20 MG Tablet PO (09:55)
[2018-02-08] MEDS: Loratadine 10 MG Tablet PO (09:55)
[2018-02-08] MEDS: Pantoprazole Sodium 20 MG Tablet PO (09:55)
[2018-02-08] MEDS: Metoprolol Tartrate 25 MG Tablet PO ×2 (11:25→21:46)
[2018-02-08] MEDS: LORazepam 1 MG Tablet PO ×2 (11:47→21:47)
[2018-02-08] MEDS: Acetaminophen 325 MG Tablet 650 MG PO (11:47)
--- NOTE | 2018-02-08 12:08 | PCM.PN.HOSP ---
Patient Problems: Active and Suspected Problems Abnormal cardiac enzyme level (Acute) Abnormal electrocardiogram (Acute) Subjective: Patient seen and examined. She remains short of breath even though she states that is better than yesterday. She denied any fever or chills but still has a cough which is mildly productive. She denies any chest pain or palpitations, any abdominal pain, any diarrhea vomiting. Troponins trended up and peaked at 0.5 yesterday cardiology was consulted. Review of systems otherwise negative. She remains on 3 L of oxygen. Vitals/I&O's: Vital Signs Temp Pulse Resp BP Pulse Ox 98.3 F 90 18 147/78 H 92 02/08/18 09:50 02/08/18 11:25 02/08/18 10:31 02/08/18 09:50 02/08/18 09:50 Oxygen Flow Rate (L/min) 3 Oxygen Delivery Method Nasal Cannula Weight: 144 lb 9.972 oz Body Mass Index (BMI) 24.8 Intake and Output for Last 24 Hours 02/06/18 02/07/18 02/08/18 23:59 23:59 23:59 Intake Total 979 / 979 1364 / 1364 Balance 979 / 979 1364 / 1364 General: Alert, Oriented x3, Cooperative, No apparent distress HEENT: Atraumatic, PERRLA, EOMI, Normocephalic Oral: Moist Mucosa Neck: Supple, No JVD, Negative Carotid Bruits Lungs: - - Decreased breath sounds bibasilarly with a few fine crackles. On 3 L of oxygen. Cardiovascular: Regular rate, Regular Rhythm, Normal S1, Normal S2, No murmurs Abdomen: Bowel Sounds Present, Soft, Non Tender, Non-Distended, No Hepato-splenomegaly Extremities: No clubbing, No cyanosis, No edema, Capillary Refill Less than 3 Seconds Skin: No rashes, No breakdown Musculoskeletal: No Tenderness to Palpation of Joints or Extremities Lymphatic: No Cervical, Supraclavicular, or Inguinal Adenopathy Neurological: Cranial nerves II-XII grossly intact, Neuro grossly intact, Motor Exam 5/5 strength throughout Psych/Mental Status: Normal Affect, Appropriate, Alert and oriented to time, place, person, mood and affect Laboratory Results 02/07/18 14:00: Troponin I 0.593 H 02/07/18 14:00: Triglycerides 123, Cholesterol 185, LDL Cholesterol 130, VLDL Cholesterol 25, HDL Cholesterol 30 L 02/07/18 16:25: Troponin I 0.439 H 02/08/18 06:15: WBC 13.9 H, RBC 4.05 L, Hgb 11.9 L, Hct 36.9 L, MCV 91.1, MCH 29.4, MCHC 32.2, RDW 14.2, RDW Differential 47.1 H, Plt Count 264, MPV 10.0, Immature Gran % (Auto) 0.400, Neut % (Auto) 83.7 H, Lymph % (Auto) 10.9 L, [place] % (Auto) 4.9, Eos % (Auto) 0.0, Baso % (Auto) 0.1, Absolute Neuts (auto) 11.6 H, Absolute Lymphs (auto) 1.51, Total Counted Not Reportable 02/08/18 06:15: Sodium 142, Potassium 4.2, Chloride 108 H, Carbon Dioxide 26.0, Anion Gap 8, BUN 10, Creatinine 0.76, Estim Creat Clear Calc 74.77, Est GFR (MDRD) Af Amer 102, Est GFR (MDRD) Non-Af 85, BUN/Creatinine Ratio 13.1, Glucose 125 H, Calcium 8.4 L Diagnostic Data Chest X-Ray 02/07/18 10:32 IMPRESSION: Increasing left upper lobe infiltration. Follow-up is recommended. Electronically Signed: Collin Alberto MD at 10:46 EST Tel [phone], Service support , Chest CTA 02/07/18 12:11 IMPRESSION: No evidence of pulmonary embolism. Findings suggestive of scarring at the lung apices with infiltration in the left upper lobe as well as in the left lower lobe and medial aspect of the right middle lobe. Focal pleural thickening in the peripheral lateral aspect of the right lower lobe. Electronically Signed: Collin Alberto MD at 13:01 EST Tel [phone], Service support , Current Medications Acetaminophen (Tylenol) 650 mg PO Q4H PRN PRN PRN Reason: PAIN Last Admin: 02/08/18 11:47 Dose: 650 mg Albuterol/Ipratropium (Duoneb) 3 ml INHALATION Q4HWA.RT [facility] Last Admin: 02/08/18 10:31 Dose: 3 ml Aspirin (Aspirin, Baby) 81 mg PO DAILY@0800 [facility] Last Admin: 02/08/18 09:50 Dose: 81 mg Atorvastatin Calcium (Lipitor) 40 mg PO QHS [facility] Last Admin: 02/07/18 15:53 Dose: 40 mg Citalopram Hydrobromide (Celexa) 20 mg PO DAILY [facility] Last Admin: 02/08/18 09:55 Dose: 20 mg Clopidogrel Bisulfate (Plavix) 75 mg PO DAILY [facility] Last Admin: 02/08/18 09:50 Dose: 75 mg Diphenhydramine HCl (Benadryl) 25 mg PO QHS PRN PRN PRN Reason: INSOMNIA Last Admin: 02/07/18 22:12 Dose: 25 mg Enoxaparin Sodium (Lovenox) 40 mg SC DAILY@1000 [facility] Last Admin: 02/08/18 09:55 Dose: 40 mg Ceftriaxone Sodium (Rocephin) 1 gm in 50 mls @ 100 mls/hr IV Q24 [facility] Last Admin: 02/08/18 09:50 Dose: 100 mls/hr Sodium Chloride () 1,000 mls @ 15 mls/hr IV .Q48H [facility] Loratadine (Claritin) 10 mg PO DAILY [facility] Last Admin: 02/08/18 09:55 Dose: 10 mg Magnesium Hydroxide (Milk Of Magnesia) 30 ml PO DAILY PRN PRN PRN Reason: Constipation Methylprednisolone (Solu-Medrol) 40 mg IV Q8 [facility] Last Admin: 02/08/18 05:57 Dose: 40 mg Metoprolol Tartrate (Lopressor (Beta Tsering)) 25 mg PO BID [facility] Last Admin: 02/08/18 11:25 Dose: 25 mg Montelukast Sodium (Singulair) 10 mg PO DAILY [facility] Last Admin: 02/08/18 09:55 Dose: 10 mg Nicotine (Nicoderm Cq (Pbkc)) 14 mg TRANSDERM. DAILY [facility] Last Admin: 02/08/18 11:25 Dose: 14 mg Pantoprazole Sodium (Protonix) 20 mg PO DAILY [facility] Last Admin: 02/08/18 09:55 Dose: 20 mg Sodium Chloride () 5 - 15 ml IV UD PRN PRN Reason: SALINE FLUSH Last Admin: 02/07/18 22:18 Dose: 10 ml Medical Necessity - Tobacco Use Smoking Status: Former smoker Tobacco Use: Cigarettes Assessment/Plan All Active Problems Sepsis (Acute) PNA (pneumonia) (Acute) COPD exacerbation (Acute) Asthma exacerbation (Acute) Abnormal cardiac enzyme level (Acute) Abnormal electrocardiogram (Acute) 53-year-old female admitted with a complaint of worsening shortness of breath. She was recently discharged after being admitted and managed for sepsis due to community-acquired pneumonia. 1. Sepsis due to community acquired pneumonia SOB has improved slightly; she remains on 3L of oxygen leucocytosis trended down to 13.9 on IV ceftriaxone and azithromycin on breathing treatments and IV solumedrol titrate oxygen to maintain sats>92% 2. COPD: on breathing treatments with duonebs on IV solumedrol 3. NSTEMI: initial troponin ws 0.325, which trended up to 0.593 and then went down slightly to 0.439 EKG showed no acuet ST changes cardiology on board on statin,aspirin and plavix for cardiac cath tomorrow 2D echo ordered 4. Hypokalemia: resolved. 5. Anxiety and depression: not on any meds. Stable DVT prophylaxis: heparin GI prophylaxis: PPI Code Visit Inpatient E&M: [id number] [facility] Hosp L3
--- NOTE | 2018-02-08 12:13 | PN_ITS ---
Patient Problems: Active and Suspected Problems Abnormal cardiac enzyme level (Acute) Abnormal electrocardiogram (Acute) Subjective: Patient seen and examined. She remains short of breath even though she states that is better than yesterday. She denied any fever or chills but still has a cough which is mildly productive. She denies any chest pain or palpitations, any abdominal pain, any diarrhea vomiting. Troponins trended up and peaked at 0.5 yesterday cardiology was consulted. Review of systems otherwise negative. She remains on 3 L of oxygen. Vitals/I&O's: Vital Signs Temp Pulse Resp BP Pulse Ox 98.3 F 90 18 147/78 H 92 02/08/18 09:50 02/08/18 11:25 02/08/18 10:31 02/08/18 09:50 02/08/18 09:50 Oxygen Flow Rate (L/min) 3 Oxygen Delivery Method Nasal Cannula Weight: 144 lb 9.972 oz Body Mass Index (BMI) 24.8 Intake and Output for Last 24 Hours 02/06/18 02/07/18 02/08/18 23:59 23:59 23:59 Intake Total 979 / 979 1364 / 1364 Balance 979 / 979 1364 / 1364 General: Alert, Oriented x3, Cooperative, No apparent distress HEENT: Atraumatic, PERRLA, EOMI, Normocephalic Oral: Moist Mucosa Neck: Supple, No JVD, Negative Carotid Bruits Lungs: - - Decreased breath sounds bibasilarly with a few fine crackles. On 3 L of oxygen. Cardiovascular: Regular rate, Regular Rhythm, Normal S1, Normal S2, No murmurs Abdomen: Bowel Sounds Present, Soft, Non Tender, Non-Distended, No Hepato- splenomegaly Extremities: No clubbing, No cyanosis, No edema, Capillary Refill Less than 3 Seconds Skin: No rashes, No breakdown Musculoskeletal: No Tenderness to Palpation of Joints or Extremities Lymphatic: No Cervical, Supraclavicular, or Inguinal Adenopathy Neurological: Cranial nerves II-XII grossly intact, Neuro grossly intact, Motor Exam 5/5 strength throughout Psych/Mental Status: Normal Affect, Appropriate, Alert and oriented to time, place, person, mood and affect Laboratory Results 02/07/18 14:00: Troponin I 0.593 H 02/07/18 14:00: Triglycerides 123, Cholesterol 185, LDL Cholesterol 130, VLDL Cholesterol 25, HDL Cholesterol 30 L 02/07/18 16:25: Troponin I 0.439 H 02/08/18 06:15: WBC 13.9 H, RBC 4.05 L, Hgb 11.9 L, Hct 36.9 L, MCV 91.1, MCH 29.4, MCHC 32.2, RDW 14.2, RDW Differential 47.1 H, Plt Count 264, MPV 10.0, Immature Gran % (Auto) 0.400, Neut % (Auto) 83.7 H, Lymph % (Auto) 10.9 L, [place] % (Auto) 4.9, Eos % (Auto) 0.0, Baso % (Auto) 0.1, Absolute Neuts (auto) 11.6 H, Absolute Lymphs (auto) 1.51, Total Counted Not Reportable 02/08/18 06:15: Sodium 142, Potassium 4.2, Chloride 108 H, Carbon Dioxide 26.0, Anion Gap 8, BUN 10, Creatinine 0.76, Estim Creat Clear Calc 74.77, Est GFR (MDRD) Af Amer 102, Est GFR (MDRD) Non-Af 85, BUN/Creatinine Ratio 13.1, Glucose 125 H, Calcium 8.4 L Diagnostic Data Chest X-Ray 02/07/18 10:32 IMPRESSION: Increasing left upper lobe infiltration. Follow-up is recommended. Electronically Signed: Collin Alberto MD at 10:46 EST Tel [phone], Service support , Chest CTA 02/07/18 12:11 IMPRESSION: No evidence of pulmonary embolism. Findings suggestive of scarring at the lung apices with infiltration in the left upper lobe as well as in the left lower lobe and medial aspect of the right middle lobe. Focal pleural thickening in the peripheral lateral aspect of the right lower lobe. Electronically Signed: Collin Alberto MD at 13:01 EST Tel [phone], Service support , Current Medications Acetaminophen (Tylenol) 650 mg PO Q4H PRN PRN PRN Reason: PAIN Last Admin: 02/08/18 11:47 Dose: 650 mg Albuterol/Ipratropium (Duoneb) 3 ml INHALATION Q4HWA.RT [facility] Last Admin: 02/08/18 10:31 Dose: 3 ml Aspirin (Aspirin, Baby) 81 mg PO DAILY@0800 [facility] Last Admin: 02/08/18 09:50 Dose: 81 mg Atorvastatin Calcium (Lipitor) 40 mg PO QHS [facility] Last Admin: 02/07/18 15:53 Dose: 40 mg Citalopram Hydrobromide (Celexa) 20 mg PO DAILY [facility] Last Admin: 02/08/18 09:55 Dose: 20 mg Clopidogrel Bisulfate (Plavix) 75 mg PO DAILY [facility] Last Admin: 02/08/18 09:50 Dose: 75 mg Diphenhydramine HCl (Benadryl) 25 mg PO QHS PRN PRN PRN Reason: INSOMNIA Last Admin: 02/07/18 22:12 Dose: 25 mg Enoxaparin Sodium (Lovenox) 40 mg SC DAILY@1000 [facility] Last Admin: 02/08/18 09:55 Dose: 40 mg Ceftriaxone Sodium (Rocephin) 1 gm in 50 mls @ 100 mls/hr IV Q24 [facility] Last Admin: 02/08/18 09:50 Dose: 100 mls/hr Sodium Chloride () 1,000 mls @ 15 mls/hr IV .Q48H [facility] Loratadine (Claritin) 10 mg PO DAILY [facility] Last Admin: 02/08/18 09:55 Dose: 10 mg Magnesium Hydroxide (Milk Of Magnesia) 30 ml PO DAILY PRN PRN PRN Reason: Constipation Methylprednisolone (Solu-Medrol) 40 mg IV Q8 [facility] Last Admin: 02/08/18 05:57 Dose: 40 mg Metoprolol Tartrate (Lopressor (Beta Tsering)) 25 mg PO BID [facility] Last Admin: 02/08/18 11:25 Dose: 25 mg Montelukast Sodium (Singulair) 10 mg PO DAILY [facility] Last Admin: 02/08/18 09:55 Dose: 10 mg Nicotine (Nicoderm Cq (Pbkc)) 14 mg TRANSDERM. DAILY [facility] Last Admin: 02/08/18 11:25 Dose: 14 mg Pantoprazole Sodium (Protonix) 20 mg PO DAILY [facility] Last Admin: 02/08/18 09:55 Dose: 20 mg Sodium Chloride () 5 - 15 ml IV UD PRN PRN Reason: SALINE FLUSH Last Admin: 02/07/18 22:18 Dose: 10 ml Medical Necessity - Tobacco Use Smoking Status: Former smoker Tobacco Use: Cigarettes Assessment/Plan All Active Problems Sepsis (Acute) PNA (pneumonia) (Acute) COPD exacerbation (Acute) Asthma exacerbation (Acute) Abnormal cardiac enzyme level (Acute) Abnormal electrocardiogram (Acute) 53-year-old female admitted with a complaint of worsening shortness of breath. She was recently discharged after being admitted and managed for sepsis due to community-acquired pneumonia. 1. Sepsis due to community acquired pneumonia * SOB has improved slightly; she remains on 3L of oxygen * leucocytosis trended down to 13.9 * on IV ceftriaxone and azithromycin * on breathing treatments and IV solumedrol * titrate oxygen to maintain sats>92% * * 2. COPD: * on breathing treatments with duonebs * on IV solumedrol * * 3. NSTEMI: * initial troponin ws 0.325, which trended up to 0.593 and then went down slightly to 0.439 * EKG showed no acuet ST changes * cardiology on board * on statin,aspirin and plavix * for cardiac cath tomorrow * 2D echo ordered 4. Hypokalemia: resolved. 5. Anxiety and depression: not on any meds. Stable DVT prophylaxis: heparin GI prophylaxis: PPI Code Visit Inpatient E&M: [id number] [facility] Hosp L3
--- NOTE | 2018-02-08 12:52 | PCM.PN.CARD ---
Subjectve: The patient states she is feeling better overall. She still has cough and shortness of breath. She denies ongoing chest discomfort. Objective: Vital Signs Temp Pulse Resp BP Pulse Ox 98.3 F 90 18 147/78 H 92 02/08/18 09:50 02/08/18 11:25 02/08/18 10:31 02/08/18 09:50 02/08/18 09:50 Oxygen Flow Rate (L/min) 3 Oxygen Delivery Method Nasal Cannula Weight: 144 lb 9.972 oz Body Mass Index (BMI) 24.8 Intake and Output for Last 24 Hours 02/06/18 02/07/18 02/08/18 23:59 23:59 23:59 Intake Total 979 / 979 1364 / 1364 Balance 979 / 979 1364 / 1364 General: Awake, Alert, Oriented x 3, Cooperative, No Acute Distress HEENT: Atraumatic, Normocephalic, PERRL, Sclera Non Icteric Oral: Moist Mucosa Neck: Supple, Good ROM, No JVD Lungs: - - Scattered rhonchi: Left anterior thorax Cardiovascular: Regular Rhythm, Normal S1, Normal S2 Vascular: No Carotid Bruits Abdomen: Bowel Sounds Present, Soft, Non Tender Extremities: No edema Neurological: No Focal Motor or Sensory Deficit Psych/Mental Status: Appropriate 02/07/18 14:00: Troponin I 0.593 H 02/07/18 14:00: Triglycerides 123, Cholesterol 185, LDL Cholesterol 130, VLDL Cholesterol 25, HDL Cholesterol 30 L 02/07/18 16:25: Troponin I 0.439 H 02/08/18 06:15: WBC 13.9 H, RBC 4.05 L, Hgb 11.9 L, Hct 36.9 L, MCV 91.1, MCH 29.4, MCHC 32.2, RDW 14.2, RDW Differential 47.1 H, Plt Count 264, MPV 10.0, Immature Gran % (Auto) 0.400, Neut % (Auto) 83.7 H, Lymph % (Auto) 10.9 L, [place] % (Auto) 4.9, Eos % (Auto) 0.0, Baso % (Auto) 0.1, Absolute Neuts (auto) 11.6 H, Total Counted Not Reportable 02/08/18 06:15: Sodium 142, Potassium 4.2, Chloride 108 H, Carbon Dioxide 26.0, Anion Gap 8, BUN 10, Creatinine 0.76, Est GFR (MDRD) Af Amer 102, Est GFR (MDRD) Non-Af 85, BUN/Creatinine Ratio 13.1, Glucose 125 H, Calcium 8.4 L Rhythm: Sinus rhythm EKG: Sinus rhythm; T wave abnormality concerning for myocardial ischemia ECHO: Preliminary report: Left ventricular regional wall motion abnormalities with mild decreased LV systolic function with an estimated LVEF of 50%: Please see official report Stress Test: Medical Necessity - Tobacco Use Smoking Status: Former smoker Tobacco Use: Cigarettes Assessment/Plan 1. Abnormal cardiac enzymes The patient does have abnormal cardiac enzymes. This may be related to her underlying pulmonary disease process and potentially a type II non-ST segment elevation [place]/supply demand mismatch event as opposed to a primary acute coronary syndrome event. She has been evaluated for obvious thromboembolic disease which has been negative. She has had no evidence of underlying acute [employer] event or an acute renal insufficiency. Is unclear as to whether or not there is been any concerns of a true underlying sepsis event secondary to her concerns of pneumonia. At the present time she will continue to be followed. Her cardiac enzymes are decreasing. T wave abnormalities appearing compatible with myocardial ischemia. An echocardiogram suggests left ventricular regional wall motion abnormalities. He will continue medical management. However she will be recommended for further evaluation with diagnostic cardiac catheterization. 2. Abnormal ECG She will continue evaluation care as noted above. 3. Pneumonia She will continue evaluation care per internal medicine. 4. COPD She states she does follow with [facility] pulmonology as an outpatient for her underlying COPD. This note was generated using a voice recognition system and there may be incorrect words, spelling or punctuation that were not noted when reviewing the office note prior to saving.
--- NOTE | 2018-02-08 12:55 | PN.CARD_ITS ---
Subjectve: The patient states she is feeling better overall. She still has cough and shortness of breath. She denies ongoing chest discomfort. Objective: Vital Signs Temp Pulse Resp BP Pulse Ox 98.3 F 90 18 147/78 H 92 02/08/18 09:50 02/08/18 11:25 02/08/18 10:31 02/08/18 09:50 02/08/18 09:50 Oxygen Flow Rate (L/min) 3 Oxygen Delivery Method Nasal Cannula Weight: 144 lb 9.972 oz Body Mass Index (BMI) 24.8 Intake and Output for Last 24 Hours 02/06/18 02/07/18 02/08/18 23:59 23:59 23:59 Intake Total 979 / 979 1364 / 1364 Balance 979 / 979 1364 / 1364 General: Awake, Alert, Oriented x 3, Cooperative, No Acute Distress HEENT: Atraumatic, Normocephalic, PERRL, Sclera Non Icteric Oral: Moist Mucosa Neck: Supple, Good ROM, No JVD Lungs: - - Scattered rhonchi: Left anterior thorax Cardiovascular: Regular Rhythm, Normal S1, Normal S2 Vascular: No Carotid Bruits Abdomen: Bowel Sounds Present, Soft, Non Tender Extremities: No edema Neurological: No Focal Motor or Sensory Deficit Psych/Mental Status: Appropriate 02/07/18 14:00: Troponin I 0.593 H 02/07/18 14:00: Triglycerides 123, Cholesterol 185, LDL Cholesterol 130, VLDL Cholesterol 25, HDL Cholesterol 30 L 02/07/18 16:25: Troponin I 0.439 H 02/08/18 06:15: WBC 13.9 H, RBC 4.05 L, Hgb 11.9 L, Hct 36.9 L, MCV 91.1, MCH 29.4, MCHC 32.2, RDW 14.2, RDW Differential 47.1 H, Plt Count 264, MPV 10.0, Immature Gran % (Auto) 0.400, Neut % (Auto) 83.7 H, Lymph % (Auto) 10.9 L, [place] % (Auto) 4.9, Eos % (Auto) 0.0, Baso % (Auto) 0.1, Absolute Neuts (auto) 11.6 H, Total Counted Not Reportable 02/08/18 06:15: Sodium 142, Potassium 4.2, Chloride 108 H, Carbon Dioxide 26.0, Anion Gap 8, BUN 10, Creatinine 0.76, Est GFR (MDRD) Af Amer 102, Est GFR (MDRD) Non-Af 85, BUN/Creatinine Ratio 13.1, Glucose 125 H, Calcium 8.4 L Rhythm: Sinus rhythm EKG: Sinus rhythm; T wave abnormality concerning for myocardial ischemia ECHO: Preliminary report: Left ventricular regional wall motion abnormalities with mild decreased LV systolic function with an estimated LVEF of 50%: Please see official report Stress Test: Medical Necessity - Tobacco Use Smoking Status: Former smoker Tobacco Use: Cigarettes Assessment/Plan 1. Abnormal cardiac enzymes The patient does have abnormal cardiac enzymes. This may be related to her underlying pulmonary disease process and potentially a type II non-ST segment elevation [place]/supply demand mismatch event as opposed to a primary acute coronary syndrome event. She has been evaluated for obvious thromboembolic disease which has been negative. She has had no evidence of underlying acute [employer] event or an acute renal insufficiency. Is unclear as to whether or not there is been any concerns of a true underlying sepsis event secondary to her concerns of pneumonia. At the present time she will continue to be followed. Her cardiac enzymes are decreasing. T wave abnormalities appearing compatible with myocardial ischemia. An echocardiogram suggests left ventricular regional wall motion abnormalities. He will continue medical management. However she will be recommended for further evaluation with diagnostic cardiac catheterization. 2. Abnormal ECG She will continue evaluation care as noted above. 3. Pneumonia She will continue evaluation care per internal medicine. 4. COPD She states she does follow with [facility] pulmonology as an outpatient for her underlying COPD. This note was generated using a voice recognition system and there may be incorrect words, spelling or punctuation that were not noted when reviewing the office note prior to saving.
[2018-02-08] MEDS: 0.9% NaCl Peripheral Flush Adult/Peds IV ×3 (14:04→21:50)
[2018-02-08] MEDS: Atorvastatin Calcium 40 MG Tablet PO (21:46)
[2018-02-09] VITALS (21 sets, daily range): BP systolic 136–169; BP diastolic 53–96; PULSE 65–101; RESP 17–20; TEMP 36.4–36.7; O2SAT 92–97
[2018-02-09 00:06] LABS: Pregnancy, Serum, hCG Quali. NEGATIVE Negative (0-9 Nonpreg)
--- NOTE | 2018-02-09 05:55 | EKG12_ITS ---
Test Reason : MORNING EKG Blood Pressure : / mmHG Vent. Rate : 076 BPM Atrial Rate : 076 BPM P-R Int : 126 ms QRS Dur : 078 ms QT Int : 444 ms P-R-T Axes : 075 -12 110 degrees QTc Int : 499 ms Normal sinus rhythm T wave abnormality, consider anterolateral ischemia Prolonged QT Abnormal ECG Confirmed by LOIDA BRAXTON, MARS ([id number]), brands editor ÁNGEL SALVADOR ([id number]) on 02/15/2018 11:00:30 AM Referred By: Alexandrea Williamson Confirmed By:MARS MARISCAL MD
[2018-02-09] MEDS: Aspirin 81 MG TAB.CHEW PO (06:12)
[2018-02-09] MEDS: Metoprolol Tartrate 25 MG Tablet PO ×2 (06:12→21:28)
[2018-02-09] MEDS: 0.9% Normal Saline 1,000 ML 15 ML IV (06:13)
[2018-02-09] MEDS: Clopidogrel Bisulfate 75 MG Tablet PO (06:13)
[2018-02-09] MEDS: 0.9% NaCl Peripheral Flush Adult/Peds IV ×4 (06:14→21:28)
[2018-02-09 06:38] LABS: Absolute Lymphocyte Count 2.36 X10^3/ul (0.83-4.51); Absolute Neutrophil Count 13.4 X10^3/uL (2.0-7.7); Basophil# 0.03 X10^3/uL; Basophil% 0.2 % (0-1); Hemoglobin 12.6 g/dl (12.0-15.0); Lymphocyte # 2.36 X10^3/ul (4.0); Mean Corp Hgb Conc 33.2 g/gl (32-36); Mean Corpuscular Hgb 29.4 pg (27.0-32.0); Mean Corpuscular Volume 88.8 fL (81-99); Mean Platelet Vol. 9.8 fl (6.2-12.0); Monocyte# 0.85 X10^3/uL; Monocyte% 5.1 % (0-10); Neutrophil # 13.42 X10^3/uL (2.7-7.7); Neutrophil % 79.8 % (47-70); POSITIVE COUNT NO; POSITIVE DIFFERENTIAL NO; POSITIVE MORPHOLOGY NO; Platelet Count 343 K/mm3 (150-450); RBC Distribution Width SD 45.6 fl (35.1-43.9); Red Blood Count 4.28 M/mm3 (4.2-5.4); White Blood Count 16.8 K/mm3 (4.4-11.0)
[2018-02-09 06:41] LABS: Partial Thromboplast Time 28.1 Seconds (24.1-36.2); Prothrombin Time (Protime)PT. 13.4 SECONDS (11.7-14.9)
[2018-02-09 06:52] LABS: Anion Gap 9 (5-15); BUN 13 mg/dL (7-18); Calcium,Total 9.1 mg/dL (8.5-10.1); Chloride 102 mmol/L (98-107); Creatinine, Serum 0.68 mg/dL (0.55-1.02); EST Glomerular Filtration Rate 96 mL/min (>60); Est Glom Filt Rate - Afr Amer 116 mL/min (>60); Estimated Creatinine Clearance 83.57 ml/min; Glucose 116 mg/dL (74-106); Potassium 4.1 mmol/L (3.5-5.1); Sodium Level 139 mmol/L (136-145)
[2018-02-09 07:00] LABS: Pregnancy, Serum, hCG Quali. NEGATIVE Negative (0-9 Nonpreg)
[2018-02-09] MEDS: Ipratropium/Albuterol Sulfate 3 ML AMPUL.NEB INHALATION ×3 (07:21→20:18)
[2018-02-09] MEDS: LORazepam 1 MG Tablet PO ×2 (08:07→21:37)
--- NOTE | 2018-02-09 09:11 | PN.CARD_ITS ---
Subjectve: Shunt is now status post diagnostic cardiac catheterization. She appears to be without acute complaint or adverse event. Objective: Vital Signs Temp Pulse Resp BP Pulse Ox 98.1 F 73 18 145/83 H 97 02/09/18 06:00 02/09/18 07:15 02/09/18 07:23 02/09/18 06:00 02/09/18 06:00 Oxygen Flow Rate (L/min) 3 Oxygen Delivery Method Room Air Weight: 144 lb 9.972 oz Body Mass Index (BMI) 24.8 Intake and Output for Last 24 Hours 02/07/18 02/08/18 02/09/18 23:59 23:59 23:59 Intake Total 9 / 979 2103 Balance / 9 2103 General: Awake, Alert, Oriented x 3, Cooperative, No Acute Distress HEENT: Atraumatic, Normocephalic, PERRL, EOMI, Sclera Non Icteric Oral: Moist Mucosa Neck: Supple, Good ROM, No JVD Lungs: - - No obvious rales or rhonchi Cardiovascular: Regular Rhythm, Normal S1, Normal S2 Vascular: Normal Radial Pulses Abdomen: Bowel Sounds Present, Soft, Non Tender Extremities: No Cyanosis, No Clubbing, No edema Neurological: No Focal Motor or Sensory Deficit Psych/Mental Status: Appropriate 02/09/18 06:20: WBC 16.8 H, RBC 4.28, Hgb 12.6, Hct 38.0, MCV 88.8, MCH 29.4, MCHC 33.2, RDW 14.0, RDW Differential 45.6 H, Plt Count 343, MPV 9.8, Immature Gran % (Auto) 0.900, Neut % (Auto) 79.8 H, Lymph % (Auto) 14.0 L, [place] % (Auto) 5.1, Eos % (Auto) 0.0, Baso % (Auto) 0.2, Absolute Neuts (auto) 13.4 H, Total Counted Not Reportable 02/09/18 06:20: Sodium 139, Potassium 4.1, Chloride 102, Carbon Dioxide 28.0, Anion Gap 9, BUN 13, Creatinine 0.68, Est GFR (MDRD) Af Amer 116, Est GFR (MDRD) Non-Af 96, BUN/Creatinine Ratio 19.0, Glucose 116 H, Calcium 9.1 01/04/19 06:20: PT 13.4, INR 1.0, APTT 28.1 Rhythm: Sinus rhythm EKG: Sinus rhythm; T wave abnormality consider myocardial ischemia-her lateral Cardiac Cath: Preliminary report: Left ventricle: Regional wall motion abnormalities (anterior apical); no angiographically significant appearing CAD Medical Necessity - Tobacco Use Smoking Status: Former smoker Tobacco Use: Cigarettes Assessment/Plan 1. Stress-induced cardiomyopathy/Takotsubo syndrome The patient has undergone further noninvasive and invasive evaluation. Her ECG is demonstrated T wave changes compatible with myocardial ischemia in the anterolateral distribution. Her echocardiogram demonstrated left ventricular regional wall motion abnormalities in the anterior, anteroseptal, lateral, and apical distributions. Her overall LV systolic function by echocardiogram was mildly diminished with an estimated LVEF of 50%. Her cardiac catheterization now demonstrates left ventricular regional wall motion abnormalities in the anterior and apical distributions with no angiographically significant appearing CAD. Thus her findings appear compatible with a stress-induced cardiomyopathy. At the present time it would be recommended the patient continue medical management. This would include aspirin, antiplatelet therapy with clopidogrel/Plavix (potentially for approximately 3 months), beta-blockers, CHANDU inhibitors or ARB's, and lipid-lowering agents. She will need future outpatient cardiovascular follow-up to monitor her condition. This will include echocardiographic studies over time to monitor for left ventricular wall motion/function, which, hopefully will improve as she recuperates. 2. CAD The patient does have mild CAD based upon her coronary angiogram images. She needs risk factor evaluation and care as deemed appropriate. 3. Pneumonia She will continue evaluation care per internal medicine. 4. COPD She states she does follow with [facility] pulmonology as an outpatient for her underlying COPD. 5. Tobacco abuse The patient was counseled on the need to discontinue her tobacco abuse. This note was generated using a voice recognition system and there may be incorrect words, spelling or punctuation that were not noted when reviewing the office note prior to saving.
--- NOTE | 2018-02-09 09:21 | CL.D_ITS ---
Patient Name: ZULEYMA SARMIENTO I Study Date: 02/09/2018 Performing: Rao Chavez MD Ht: 64 inches 163 cm : 1965 Wt: 145.7 lbs 66 kg Age: 53 Gender: female BSA: 1.71 PROCEDURE(S) PERFORMED [id number]/COR/LV CLINICAL PROFILE AND INDICATIONS Indications: Suspected CAD, LV Dysfunction, Cardiomyopathy Heart Failure: None Stress/Imaging Stress/Image Study Performed: No Angina Classification Anginal Classification w/in 2 Weeks: CCS III CAD Presentations: Other: shortness of breath: angina pectoris equivalent CONCLUSIONS Elevated Left Ventricular End Diastolic Pressure Segmented LV systolic dysfunction- Mild [place] Multivessel CAD Cardiac catheterization findings c/w a Stress Induced Cardiomyopathy / Takotsubo Syndrome RECOMMENDATIONS Risk factor modification Medical therapy DESCRIPTION OF PROCEDURE The patient arrived to the procedure lab. The risks and benefits of the procedure as well as a full d escription of our services here and current unavailability of surgical backup were fully explained to the patient and/or their significant other prior to the catheterization. The Timeout was completed, verifying the correct patient and procedure. The patient's procedural site was prepped and draped in the usual fashion. Local anesthetic was given subcutaneously to right radial region with Lidocaine 2% . Using a modified Seldinger technique, Left Coronary Artery selective angiography was performed in multiple views using a 5 Fr. 4.0 [place] catheter. Right Coronary Artery selective angiography was the n performed in multiple views using a 5 Fr. 4.0 [place] catheter. Left Ventriculography was performed i n JAIN projection using a 5 Fr. [place] catheter. LV to AO pullback pressures were then recorded.The a rterial sheath was pulled and a TR Band was applied for hemostasis w/ 13ml air CORONARY ANGIOGRAPHY DOMINANCE: Co- Dominant LEFT HEART ASSESSMENT Left Ventricular Ejection Fraction: by LV Gram 45 % Anterior Hypokinesis. Apical Hypokinesis Elevated Left Ventricular End Diastolic Pressure LVEDP: 24 mmHg LEFT MAIN: Mild luminal irregularities LEFT ANTERIOR DECENDING ARTERY: Mild luminal irregularities CIRCUMFLEX ARTERY: Mild luminal irregularities RIGHT CORONARY ARTERY: Mild luminal irregularities VALVE FINDINGS: Normal Aortic Valve function Normal Mitral Valve function AORTIC ROOT: Angiographically normal COMPLICATIONS No Complications PROCEDURE MEDICATIONS Fentanyl 50 mcg IV Versed 1 mg IV Fentanyl 50 mcg IV Versed 1 mg IV Oxygen: 2 L/min via nasal cannula Heparin diluted in 23cc Heparinized saline. Patient given 10cc IA of this solution. 02/09/2018 08:43:0 1 Verapamil 2.5mg, Ntg 100mcgs, 2000 units of Heparin diluted in 23cc Heparinized saline. Patient give n 10cc IA of this solution. 02/09/2018 08:43:01 SUMMARY OF HEMODYNAMIC DATA Time AIR REST ECG 08:28:12 AO 144/83 (106) SA 08:45:10 LV 152/7, 27 08:50:31 LV 152/-4, 24 08:50:38 LV 156/6, 28 08:51:26 LVp 160/6, 26 08:51:32 AOp 158/82 (113) 08:51:37 Signed By Rao Chavez MD On 02/09/2018 09:20:22 Rao Chavez MD
--- NOTE | 2018-02-09 10:24 | CASEMGMT ---
RN CM Assessment Presentation: shortness of breath, cough. CAP. COPD Intro role of CM to patient in room and male visitor who identified himself as her . He is not listed on demographic. PCP: Dr. Myrick Preferred Pharmacy: [facility] Insurance: [facility] Prescription Benefit: yes LNOK: daughter Living Arrangements: lives independently with stated . Transportation: pt drives DME/HHC: no dme used, however pt requested physician consider nebulizer on dc- Dr. Williamson notified. [facility] for DME is preferred. No oxygen use @ home, and is on room air now. DC PLAN: anticipate home
[2018-02-09] MEDS: Losartan Potassium 50 MG Tablet PO (10:56)
[2018-02-09] MEDS: Citalopram 20 MG Tablet PO (11:00)
[2018-02-09] MEDS: Loratadine 10 MG Tablet PO (11:00)
[2018-02-09] MEDS: Montelukast 10 MG Tablet PO (11:00)
[2018-02-09] MEDS: Pantoprazole Sodium 20 MG Tablet PO (11:00)
[2018-02-09] MEDS: Ceftriaxone 1 GM/50 ML BAG IV (11:00)
--- NOTE | 2018-02-09 11:28 | PCM.PN.HOSP ---
Patient Problems: Active and Suspected Problems Abnormal cardiac enzyme level (Acute) Abnormal electrocardiogram (Acute) Subjective: Patient seen and examined. She has been off oxygen for the past 24 hours and feels good. Shortness of breath has improved significantly and she denies any palpitations or dizziness. Cough is also improving. She had cardiac cath this morning which was diagnostic of Takotsubo cardiomyopathy. Labs and vitals reviewed. White cell count has trended down to 16.8. Vitals/I&O's: Vital Signs Temp Pulse Resp BP Pulse Ox 98.1 F 65 18 136/71 H 95 02/09/18 09:15 02/09/18 10:15 02/09/18 10:15 02/09/18 10:15 02/09/18 10:15 Oxygen Flow Rate (L/min) 3 Oxygen Delivery Method Room Air Weight: 144 lb 9.972 oz Body Mass Index (BMI) 24.8 Intake and Output for Last 24 Hours 02/07/18 02/08/18 02/09/18 23:59 23:59 23:59 Intake Total 979 / 979 2103 Balance 979 / 979 2103 / 2103 General: Alert, Oriented x3, Cooperative, No apparent distress HEENT: Atraumatic, PERRLA, EOMI, Normocephalic Oral: Moist Mucosa Neck: Supple, No JVD, Negative Carotid Bruits Lungs: Clear to auscultation, Normal air movement, No rhonchi, No wheeze, No rales Cardiovascular: Regular rate, Regular Rhythm, Normal S1, Normal S2, No murmurs Abdomen: Bowel Sounds Present, Soft, Non Tender, Non-Distended, No Hepato-splenomegaly Extremities: No clubbing, No cyanosis, No edema, Capillary Refill Less than 3 Seconds Skin: No rashes, No breakdown Musculoskeletal: No Tenderness to Palpation of Joints or Extremities Lymphatic: No Cervical, Supraclavicular, or Inguinal Adenopathy Neurological: Cranial nerves II-XII grossly intact, Neuro grossly intact, Motor Exam 5/5 strength throughout Psych/Mental Status: Normal Affect, Appropriate, Alert and oriented to time, place, person, mood and affect Microbiology Past 72 Hours 02/07/18 11:40 Urine, Clean Catch Urine Culture - Final Mixed Gram Positive Organisms Laboratory Results 02/08/18 06:15: Serum , Qual NEGATIVE 02/09/18 06:20: WBC 16.8 H, RBC 4.28, Hgb 12.6, Hct 38.0, MCV 88.8, MCH 29.4, MCHC 33.2, RDW 14.0, RDW Differential 45.6 H, Plt Count 343, MPV 9.8, Immature Gran % (Auto) 0.900, Neut % (Auto) 79.8 H, Lymph % (Auto) 14.0 L, [place] % (Auto) 5.1, Eos % (Auto) 0.0, Baso % (Auto) 0.2, Absolute Neuts (auto) 13.4 H, Absolute Lymphs (auto) 2.36, Total Counted Not Reportable 02/09/18 06:20: Sodium 139, Potassium 4.1, Chloride 102, Carbon Dioxide 28.0, Anion Gap 9, BUN 13, Creatinine 0.68, Estim Creat Clear Calc 83.57, Est GFR (MDRD) Af Amer 116, Est GFR (MDRD) Non-Af 96, BUN/Creatinine Ratio 19.0, Glucose 116 H, Calcium 9.1 02/09/18 06:20: PT 13.4, INR 1.0, APTT 28.1 02/09/18 06:20: Serum , Qual NEGATIVE Current Medications Acetaminophen (Tylenol) 650 mg PO Q4H PRN PRN PRN Reason: PAIN Last Admin: 02/08/18 11:47 Dose: 650 mg Albuterol/Ipratropium (Duoneb) 3 ml INHALATION Q4HWA.RT [facility] Last Admin: 02/09/18 07:21 Dose: 3 ml Aspirin (Aspirin, Baby) 81 mg PO DAILY@0800 [facility] Last Admin: 02/09/18 06:12 Dose: 81 mg Atorvastatin Calcium (Lipitor) 40 mg PO QHS [facility] Last Admin: 02/08/18 21:46 Dose: 40 mg Citalopram Hydrobromide (Celexa) 20 mg PO DAILY [facility] Last Admin: 02/09/18 11:00 Dose: 20 mg Clopidogrel Bisulfate (Plavix) 75 mg PO DAILY [facility] Last Admin: 02/09/18 06:13 Dose: 75 mg Diphenhydramine HCl (Benadryl) 25 mg PO QHS PRN PRN PRN Reason: INSOMNIA Last Admin: 02/07/18 22:12 Dose: 25 mg Enoxaparin Sodium (Lovenox) 40 mg SC DAILY@1000 [facility] Last Admin: 02/09/18 09:28 Dose: Not Given Ceftriaxone Sodium (Rocephin) 1 gm in 50 mls @ 100 mls/hr IV Q24 [facility] Last Admin: 02/09/18 11:00 Dose: 100 mls/hr Sodium Chloride () 1,000 mls @ 15 mls/hr IV .Q48H [facility] Last Admin: 02/09/18 06:13 Dose: 15 mls/hr Sodium Chloride () 1,000 mls @ 75 mls/hr IV .[id number] [facility] Last Admin: 02/09/18 09:28 Dose: Not Given Loratadine (Claritin) 10 mg PO DAILY [facility] Last Admin: 02/09/18 11:00 Dose: 10 mg Lorazepam (Ativan) 1 mg PO Q8H PRN PRN PRN Reason: ANXIETY Last Admin: 02/09/18 08:07 Dose: 1 mg Losartan Potassium (Cozaar) 50 mg PO DAILY [facility] Last Admin: 02/09/18 10:56 Dose: 50 mg Magnesium Hydroxide (Milk Of Magnesia) 30 ml PO DAILY PRN PRN PRN Reason: Constipation Methylprednisolone (Solu-Medrol) 40 mg IV Q8 [facility] Last Admin: 02/09/18 06:13 Dose: 40 mg Metoprolol Tartrate (Lopressor (Beta Tsering)) 25 mg PO BID [facility] Last Admin: 02/09/18 06:12 Dose: 25 mg Montelukast Sodium (Singulair) 10 mg PO DAILY [facility] Last Admin: 02/09/18 11:00 Dose: 10 mg Nicotine (Nicoderm Cq (Pbkc)) 14 mg TRANSDERM. DAILY [facility] Last Admin: 02/09/18 10:56 Dose: 14 mg Pantoprazole Sodium (Protonix) 20 mg PO DAILY [facility] Last Admin: 02/09/18 11:00 Dose: 20 mg Sodium Chloride () 5 - 15 ml IV UD PRN PRN Reason: SALINE FLUSH Last Admin: 02/09/18 06:16 Dose: 5 ml Medical Necessity - Tobacco Use Smoking Status: Former smoker Tobacco Use: Cigarettes Assessment/Plan All Active Problems Sepsis (Acute) PNA (pneumonia) (Acute) COPD exacerbation (Acute) Asthma exacerbation (Acute) Abnormal cardiac enzyme level (Acute) Abnormal electrocardiogram (Acute) 53-year-old female admitted with a complaint of worsening shortness of breath. She was recently discharged after being admitted and managed for sepsis due to community-acquired pneumonia. 1. Sepsis due to community acquired pneumonia resolving. Feels much better. Now off oxygen continue IV ceftriaxone and azithromycin continue breathing treatments and solumedrol 2. COPD: on breathing treatments with duonebs on IV solumedrol 3. NSTEMI: initial troponin ws 0.325, which trended up to 0.593 and then went down slightly to 0.439 EKG showed no acute ST changes 2D echo: EF of 50% with hypokinesia of the left ventricle and mild segmental systolic dysfunction. RVSP was 31 mmHg. cardiac cath today showed LV regional wall motion abnormalities in anterior and apical distribution with no angiographically significant appearing CAD, so findings are compatible with stress induced cardiomyopathy cardiology on board on statin,aspirin and plavix 4. Hypokalemia: resolved. 5. Anxiety and depression: not on any meds. Stable DVT prophylaxis: heparin GI prophylaxis: PPI Code Visit Inpatient E&M: 46594 Subs Hosp L3
--- NOTE | 2018-02-09 11:37 | PN_ITS ---
Patient Problems: Active and Suspected Problems Abnormal cardiac enzyme level (Acute) Abnormal electrocardiogram (Acute) Subjective: Patient seen and examined. She has been off oxygen for the past 24 hours and feels good. Shortness of breath has improved significantly and she denies any palpitations or dizziness. Cough is also improving. She had cardiac cath this morning which was diagnostic of Takotsubo cardiomyopathy. Labs and vitals reviewed. White cell count has trended down to 16.8. Vitals/I&O's: Vital Signs Temp Pulse Resp BP Pulse Ox 98.1 F 65 18 136/71 H 95 02/09/18 09:15 02/09/18 10:15 02/09/18 10:15 02/09/18 10:15 02/09/18 10:15 Oxygen Flow Rate (L/min) 3 Oxygen Delivery Method Room Air Weight: 144 lb 9.972 oz Body Mass Index (BMI) 24.8 Intake and Output for Last 24 Hours 02/07/18 02/08/18 02/09/18 23:59 23:59 23:59 Intake Total 979 / 979 2103 Balance 979 / 979 2103 / 2103 General: Alert, Oriented x3, Cooperative, No apparent distress HEENT: Atraumatic, PERRLA, EOMI, Normocephalic Oral: Moist Mucosa Neck: Supple, No JVD, Negative Carotid Bruits Lungs: Clear to auscultation, Normal air movement, No rhonchi, No wheeze, No rales Cardiovascular: Regular rate, Regular Rhythm, Normal S1, Normal S2, No murmurs Abdomen: Bowel Sounds Present, Soft, Non Tender, Non-Distended, No Hepato- splenomegaly Extremities: No clubbing, No cyanosis, No edema, Capillary Refill Less than 3 Seconds Skin: No rashes, No breakdown Musculoskeletal: No Tenderness to Palpation of Joints or Extremities Lymphatic: No Cervical, Supraclavicular, or Inguinal Adenopathy Neurological: Cranial nerves II-XII grossly intact, Neuro grossly intact, Motor Exam 5/5 strength throughout Psych/Mental Status: Normal Affect, Appropriate, Alert and oriented to time, place, person, mood and affect Microbiology Past 72 Hours 02/07/18 11:40 Urine, Clean Catch Urine Culture - Final Mixed Gram Positive Organisms Laboratory Results 02/08/18 06:15: Serum , Qual NEGATIVE 02/09/18 06:20: WBC 16.8 H, RBC 4.28, Hgb 12.6, Hct 38.0, MCV 88.8, MCH 29.4, MCHC 33.2, RDW 14.0, RDW Differential 45.6 H, Plt Count 343, MPV 9.8, Immature Gran % (Auto) 0.900, Neut % (Auto) 79.8 H, Lymph % (Auto) 14.0 L, [place] % (Auto) 5.1, Eos % (Auto) 0.0, Baso % (Auto) 0.2, Absolute Neuts (auto) 13.4 H, Absolute Lymphs (auto) 2.36, Total Counted Not Reportable 02/09/18 06:20: Sodium 139, Potassium 4.1, Chloride 102, Carbon Dioxide 28.0, Anion Gap 9, BUN 13, Creatinine 0.68, Estim Creat Clear Calc 83.57, Est GFR (MDRD) Af Amer 116, Est GFR (MDRD) Non-Af 96, BUN/Creatinine Ratio 19.0, Glucose 116 H, Calcium 9.1 02/09/18 06:20: PT 13.4, INR 1.0, APTT 28.1 02/09/18 06:20: Serum , Qual NEGATIVE Current Medications Acetaminophen (Tylenol) 650 mg PO Q4H PRN PRN PRN Reason: PAIN Last Admin: 02/08/18 11:47 Dose: 650 mg Albuterol/Ipratropium (Duoneb) 3 ml INHALATION Q4HWA.RT [facility] Last Admin: 02/09/18 07:21 Dose: 3 ml Aspirin (Aspirin, Baby) 81 mg PO DAILY@0800 [facility] Last Admin: 02/09/18 06:12 Dose: 81 mg Atorvastatin Calcium (Lipitor) 40 mg PO QHS [facility] Last Admin: 02/08/18 21:46 Dose: 40 mg Citalopram Hydrobromide (Celexa) 20 mg PO DAILY [facility] Last Admin: 02/09/18 11:00 Dose: 20 mg Clopidogrel Bisulfate (Plavix) 75 mg PO DAILY [facility] Last Admin: 02/09/18 06:13 Dose: 75 mg Diphenhydramine HCl (Benadryl) 25 mg PO QHS PRN PRN PRN Reason: INSOMNIA Last Admin: 02/07/18 22:12 Dose: 25 mg Enoxaparin Sodium (Lovenox) 40 mg SC DAILY@1000 [facility] Last Admin: 02/09/18 09:28 Dose: Not Given Ceftriaxone Sodium (Rocephin) 1 gm in 50 mls @ 100 mls/hr IV Q24 [facility] Last Admin: 02/09/18 11:00 Dose: 100 mls/hr Sodium Chloride () 1,000 mls @ 15 mls/hr IV .Q48H [facility] Last Admin: 02/09/18 06:13 Dose: 15 mls/hr Sodium Chloride () 1,000 mls @ 75 mls/hr IV .[id number] [facility] Last Admin: 02/09/18 09:28 Dose: Not Given Loratadine (Claritin) 10 mg PO DAILY [facility] Last Admin: 02/09/18 11:00 Dose: 10 mg Lorazepam (Ativan) 1 mg PO Q8H PRN PRN PRN Reason: ANXIETY Last Admin: 02/09/18 08:07 Dose: 1 mg Losartan Potassium (Cozaar) 50 mg PO DAILY [facility] Last Admin: 02/09/18 10:56 Dose: 50 mg Magnesium Hydroxide (Milk Of Magnesia) 30 ml PO DAILY PRN PRN PRN Reason: Constipation Methylprednisolone (Solu-Medrol) 40 mg IV Q8 [facility] Last Admin: 02/09/18 06:13 Dose: 40 mg Metoprolol Tartrate (Lopressor (Beta Tsering)) 25 mg PO BID [facility] Last Admin: 02/09/18 06:12 Dose: 25 mg Montelukast Sodium (Singulair) 10 mg PO DAILY [facility] Last Admin: 02/09/18 11:00 Dose: 10 mg Nicotine (Nicoderm Cq (Pbkc)) 14 mg TRANSDERM. DAILY [facility] Last Admin: 02/09/18 10:56 Dose: 14 mg Pantoprazole Sodium (Protonix) 20 mg PO DAILY [facility] Last Admin: 02/09/18 11:00 Dose: 20 mg Sodium Chloride () 5 - 15 ml IV UD PRN PRN Reason: SALINE FLUSH Last Admin: 02/09/18 06:16 Dose: 5 ml Medical Necessity - Tobacco Use Smoking Status: Former smoker Tobacco Use: Cigarettes Assessment/Plan All Active Problems Sepsis (Acute) PNA (pneumonia) (Acute) COPD exacerbation (Acute) Asthma exacerbation (Acute) Abnormal cardiac enzyme level (Acute) Abnormal electrocardiogram (Acute) 53-year-old female admitted with a complaint of worsening shortness of breath. She was recently discharged after being admitted and managed for sepsis due to community-acquired pneumonia. 1. Sepsis due to community acquired pneumonia * resolving. Feels much better. Now off oxygen * continue IV ceftriaxone and azithromycin * continue breathing treatments and solumedrol * * 2. COPD: * on breathing treatments with duonebs * on IV solumedrol * * 3. NSTEMI: * initial troponin ws 0.325, which trended up to 0.593 and then went down slightly to 0.439 * EKG showed no acute ST changes * 2D echo: EF of 50% with hypokinesia of the left ventricle and mild segmental systolic dysfunction. RVSP was 31 mmHg. * cardiac cath today showed LV regional wall motion abnormalities in anterior and apical distribution with no angiographically significant appearing CAD, so findings are compatible with stress induced cardiomyopathy * cardiology on board * on statin,aspirin and plavix * 4. Hypokalemia: resolved. 5. Anxiety and depression: not on any meds. Stable DVT prophylaxis: heparin GI prophylaxis: PPI Code Visit Inpatient E&M: 15055 [facility] Hosp L3
[2018-02-09] MEDS: Atorvastatin Calcium 40 MG Tablet PO (21:28)
[2018-02-10] VITALS (7 sets, daily range): BP systolic 137–153; BP diastolic 73–99; PULSE 64–95; RESP 16–18; TEMP 36.7–36.9; O2SAT 93–94
--- NOTE | 2018-02-10 04:27 | PCM.PN.BLA ---
Progress Note Nurse reported that she was noted by that the patient has gram-positive cocci bacteremia. Patient is being treated for pneumonia. Although this could be a contaminant we will start patient on vancomycin at this time. Please follow blood culture and make necessary adjustments.
--- NOTE | 2018-02-10 05:24 | PCM.RX.CS ---
Consult Pharmacy has been consulted to manage selected antiobiotic: Vancomycin Type of Consult: New start Suspected Infection: Pneumonia Labs: Sodium 139 mmol/L (136-145) 02/09/18 06:20 Potassium 4.1 mmol/L (3.5-5.1) 02/09/18 06:20 Chloride 102 mmol/L (98-107) 02/09/18 06:20 Carbon Dioxide 28.0 mmol/L (21.0-32.0) 02/09/18 06:20 Anion Gap 9 (5-15) 02/09/18 06:20 BUN 13 mg/dL (7-18) 02/09/18 06:20 Creatinine 0.68 mg/dL (0.55-1.02) 02/09/18 06:20 Est GFR (MDRD) Af Amer 116 mL/min (>60) 02/09/18 06:20 Est GFR (MDRD) Non-Af 96 mL/min (>60) 02/09/18 06:20 BUN/Creatinine Ratio 19.0 RATIO (10-20) 02/09/18 06:20 Glucose 116 mg/dL (74-106) H 02/09/18 06:20 Microbiology: Microbiology 02/07/18 10:10 Blood Culture (Wb) - Anticubital Left Blood Culture - Preliminary 02/07/18 10:25 Blood Culture (Wb) - Right Hand Blood Culture - Preliminary No growth in 48 hours. 02/07/18 11:40 Urine, Clean Catch Urine Culture - Final Mixed Gram Positive Organisms Weight used for dosin.6 kg Estimated Creatinine Clearance: 83.57 Goal Trough: 15-20 mcg/mL Pharmacy Plan for Drug Dosing: Pharmacy Service will continue to monitor and adjust dosing as required. Medications Vancomycin HCl 1,750 mg/ (Sodium Chloride) 535 mls @ 250 mls/hr IV X1 ONE Stop: 02/10/18 06:08 Last Admin: 02/10/18 04:18 Dose: 250 mls/hr Vancomycin HCl 1,250 mg/ (Sodium Chloride) 275 mls @ 167 mls/hr IV Q12H [facility] Follow-Up Labs: Trough Vancomycin Labs to be done on [date and time ordered]: 02/11 @ 1600
[2018-02-10] MEDS: 0.9% NaCl Peripheral Flush Adult/Peds IV (05:52)
--- NOTE | 2018-02-10 05:55 | EKG12_ITS ---
Test Reason : AM EKG Blood Pressure : / mmHG Vent. Rate : 079 BPM Atrial Rate : 079 BPM P-R Int : 128 ms QRS Dur : 078 ms QT Int : 438 ms P-R-T Axes : 074 -25 099 degrees QTc Int : 502 ms Normal sinus rhythm T wave abnormality, consider anterolateral ischemia Prolonged QT Abnormal ECG Confirmed by LOIDA BRAXTON, MARS ([id number]), [employer] ÁNGEL SALVADOR ([id number]) on 02/15/2018 10:57:16 AM Referred By: Alexandrea Williamson Confirmed By:MARS MARISCAL MD
[2018-02-10 06:26] LABS: Absolute Neutrophil Count 10.2 X10^3/uL (2.0-7.7); Basophil# 0.03 X10^3/uL; Basophil% 0.2 % (0-1); Hematocrit 41.3 % (37-47); Hemoglobin 13.8 g/dl (12.0-15.0); Lymphocyte % 19.4 % (19-41); Mean Corp Hgb Conc 33.4 g/gl (32-36); Mean Corpuscular Hgb 29.3 pg (27.0-32.0); Mean Corpuscular Volume 87.7 fL (81-99); Mean Platelet Vol. 9.8 fl (6.2-12.0); Monocyte% 7.6 % (0-10); Neutrophil # 10.17 X10^3/uL (2.7-7.7); Neutrophil % 70.7 % (47-70); Platelet Count 408 K/mm3 (150-450); RBC Distribution Width CV 13.8 % (11.6-14.6); RBC Distribution Width SD 44.1 fl (35.1-43.9); Red Blood Count 4.71 M/mm3 (4.2-5.4); White Blood Count 14.4 K/mm3 (4.4-11.0)
[2018-02-10 06:32] LABS: POSITIVE COUNT YES; POSITIVE DIFFERENTIAL NO; POSITIVE MORPHOLOGY YES
[2018-02-10 06:42] LABS: Anion Gap 10 (5-15); BUN 18 mg/dL (7-18); BUN/Creat Ratio 22.9 RATIO (10-20); Calcium,Total 8.9 mg/dL (8.5-10.1); Chloride 102 mmol/L (98-107); Creatinine, Serum 0.79 mg/dL (0.55-1.02); EST Glomerular Filtration Rate 82 mL/min (>60); Est Glom Filt Rate - Afr Amer 99 mL/min (>60); Estimated Creatinine Clearance 71.93 ml/min; Glucose 117 mg/dL (74-106); Potassium 4.1 mmol/L (3.5-5.1); Sodium Level 139 mmol/L (136-145)
[2018-02-10] MEDS: Ipratropium/Albuterol Sulfate 3 ML AMPUL.NEB INHALATION ×2 (07:24→10:43)
--- NOTE | 2018-02-10 08:48 | PCM.DC ---
- Discharge Diagnoses Current Active Problems: Current Active and Chronic Problems Abnormal cardiac enzyme level (Acute) Abnormal electrocardiogram (Acute) You will use the following diet at home:: Cardiac Your food should be the consistency of: Regular Your liquids should be the consistency of: Regular/Thin Discharge Activity: Return to Normal Activity Weight Bearing Status: Weight bearing as tolerated Call your doctor if you observe: Shortness of breath, Swelling in the ankles, Chest pain, Increased palpitations (irregular heartbeat) Instructions: Preventing Pneumonia, Pneumonia Treatment, Discharge Instructions for Cardiomyopathy Additional Instructions: GIVEN PAPER SCRIPT FOR NEBULIZER Allergies/Adverse Reactions: Allergies acetaminophen [From Vicodin] Adverse Reaction (Verified 02/07/18 09:57) Nausea/Vom/Diarrhea bupropion HCl [From Wellbutrin] Adverse Reaction (Verified 02/07/18 09:57) Nausea/Vom/Diarrhea hydrocodone bitartrate [From Vicodin] Adverse Reaction (Verified 02/07/18 09:57) Nausea/Vom/Diarrhea tetracycline Adverse Reaction (Verified 02/07/18 09:57) Nausea/Vom/Diarrhea Medications to take at Discharge Cetirizine HCl [Zyrtec] 10 mg PO DAILY 02/05/18 Citalopram [Celexa] 20 mg PO DAILY 02/05/18 Montelukast [Singulair] 10 mg PO DAILY 02/05/18 Omeprazole 20 mg PO DAILY 02/05/18 Ipratropium/Albuterol Respimat [Combivent Respimat Inhal [place]] 1 puff INHALATION 4X/DAY 02/07/18 Mometasone Furoate [Asmanex Hfa] 13 gm IH BID 02/07/18 Nicotine [Nicoderm] 14 mg TRANSDERM. DAILY 02/07/18 Albuterol Inhaler [Ventolin Hfa] 2 puff INHALATION Q4H PRN PRN #1 inhaler 02/10/18 Aspirin [Aspirin, Baby] 81 mg PO DAILY@0800 #30 tab.chew 02/10/18 Atorvastatin Calcium [Lipitor] 40 mg PO QHS #40 tablet 02/10/18 Clopidogrel Bisulfate [Plavix] 75 mg PO DAILY #30 tablet 02/10/18 Ipratropium/Albuterol Sulfate [Duoneb] 3 ml INHALATION Q4H.RT #60 ampul.neb 02/10/18 Losartan Potassium [Cozaar] 50 mg PO DAILY #30 tablet 02/10/18 Metoprolol Tartrate [Lopressor (beta magnus)] 25 mg PO BID #60 tablet 02/10/18 Prednisone 40 mg PO DAILY 5 Days #10 tablet 02/10/18 levoFLOXacin tablet [Levaquin tablet] 750 mg PO DAILY #3 tablet 02/10/18 The following prescriptions were given: Albuterol Inhaler [Ventolin Hfa] 2 puff INHALATION Q4H PRN PRN #1 inhaler PRN Reason: Sob &/Or Wheezing Ipratropium/Albuterol Sulfate [Duoneb] 3 ml INHALATION Q4H.RT #60 ampul.neb Aspirin [Aspirin, Baby] 81 mg PO DAILY@0800 #30 tab.chew Atorvastatin Calcium [Lipitor] 40 mg PO QHS #40 tablet Clopidogrel Bisulfate [Plavix] 75 mg PO DAILY #30 tablet levoFLOXacin tablet [Levaquin tablet] 750 mg PO DAILY #3 tablet Losartan Potassium [Cozaar] 50 mg PO DAILY #30 tablet Prednisone 40 mg PO DAILY 5 Days #10 tablet Metoprolol Tartrate [Lopressor (beta magnus)] 25 mg PO BID #60 tablet Primary Care Physician: Tammi Myrick MD [Primary Care Provider] - Please follow up with your Primary Care Physician in: ONE WEEK Test Results: Test results from this visit will be discussed in further detail at your follow-up appointment, if applicable. Please Follow Up With: Rao Chavez MD When: 1-2 WEEKS Proposed Discharge Date: 02/10/18
--- NOTE | 2018-02-10 09:10 | DS.PCM_ITS ---
Discharge Date and Diagnosis - Problem List Patient Problems: Active and Suspected Problems Abnormal cardiac enzyme level (Acute) Abnormal electrocardiogram (Acute) Date of Admission: 02/07/18 Date of Discharge: 02/10/18 - Primary Discharge Diagnosis Active and Suspected Problems Abnormal cardiac enzyme level (Acute) Abnormal electrocardiogram (Acute) pneumonia Takotsubo cardiomyopathy - Secondary Discharge Diagnosis Chronic Problems COPD with asthma (Chronic) GERD (gastroesophageal reflux disease) (Chronic) Anxiety and depression (Chronic) Hospital Course and Treatment Imaging Results: Diagnostic Data Chest X-Ray 02/07/18 10:32 IMPRESSION: Increasing left upper lobe infiltration. Follow-up is recommended. Electronically Signed: Collin Alberto MD at 10:46 EST Tel [phone], Service support , Chest CTA 02/07/18 12:11 IMPRESSION: No evidence of pulmonary embolism. Findings suggestive of scarring at the lung apices with infiltration in the left upper lobe as well as in the left lower lobe and medial aspect of the right middle lobe. Focal pleural thickening in the peripheral lateral aspect of the right lower lobe. Electronically Signed: Collin Alberto MD at 13:01 EST Tel [phone], Service support , Interpretation Summary The study was technically difficult. Mild segmental systolic dysfunction (see wall motion). The estimated ejection fraction is 50 %. Mild (1+) mitral valve insufficiency. Trivial tricuspid valve insufficiency. Right ventricular systolic pressure estimated to be 31 mmHg. No evidence for diastolic dysfunction. Operations: None Procedures: Cardiac catheterization Summary of Care Provided: The patient is a 53 year old F with a past medical history of COPD and asthma, GERD, anxiety and depression. She was admitted to the ED on 02/07/2018 with a complaint of shortness of breath and cough. Patient was admitted on 02/05/2018 to [facility] and managed for sepsis due to community-acquired pneumonia and COPD exacerbation. She was discharged on 02/06/2018. When she went home, shortness of breath still persisted and got worse on morning of admission. She had associated chills but denied any fever and also had a cough which was nonproductive. She was discharged on antibiotics which was due to start taking on day of admission. On admission in the ED she was noted to be tachycardic with pulse around 107 and respiratory rate around 20. She was saturating at 97% on 2 L of oxygen. Labs showed potassium of 3.3 and initial troponin of 0.325. CBC showed white cell count of 20.1, although it must be stated the patient had been on steroids. EKG shows sinus tachycardia,with no acute ST changes. Chest x-ray showed increasing left upper lobe infiltrate. Initial troponin was also 0.325 which trended up to 0.593. EKG showed no acute ST changes. She was admitted to be managed for community-acquired pneumonia and non-STEMI. She was started on IV antibiotics and started on aspirin, Plavix, atorvastatin and Lovenox. Cardiology was consulted. She also had hypokalemia which resolved with treatment. She had 2D echo which showed EF of 50% with hypokinesia of the left ventricle and mild segmental systolic dysfunction with RVSP of 31 mmHg. She proceeded to have a cardiac catheterization which showed left ventricular regional wall motion abnormality seen anterior and apical distribution with no angiographically significant appearing coronary artery disease therefore findings were compatible with stress-induced cardiomyopathy. Patient shortness of breath resolved and she was transitioned off of oxygen. She remained stable and was discharged home on 02/10/2018. She was discharged with a prescription for p.o. levofloxacin and was also discharged on losartan and metoprolol as well as aspirin and Plavix. She is to follow-up with cardiology and her primary care doctor. Patient seen and examined prior to discharge. She had no complaints and felt well. She denied any fever, any chills, any cough or chest pain issues, any abdominal pain, any diarrhea vomiting. 12 point review of systems is otherwise negative. Labs and vitals reviewed. Home medications reviewed and reconciled. o/e: Vitals: Vital Signs Height 5 ft 4 in Weight: 144 lb 9.972 oz Weight in Pounds 144.6 lbs Pulse Ox 93 Temperature 98.4 F Pulse Rate 93 Respiratory Rate 18 Blood Pressure 153/99 Blood Pressure Position Sitting General: Alert, Oriented x3, Cooperative, No apparent distress HEENT: Atraumatic, PERRLA, EOMI, Normocephalic Oral: Moist Mucosa Neck: Supple, No JVD, Negative Carotid Bruits Lungs: Clear to auscultation, Normal air movement, No rhonchi, No wheeze, No rales Cardiovascular: Regular rate, Regular Rhythm, Normal S1, Normal S2, No murmurs Abdomen: Bowel Sounds Present, Soft, Non Tender, Non-Distended, No Hepato- splenomegaly Extremities: No clubbing, No cyanosis, No edema, Capillary Refill Less than 3 Seconds Skin: No rashes, No breakdown Musculoskeletal: No Tenderness to Palpation of Joints or Extremities Lymphatic: No Cervical, Supraclavicular, or Inguinal Adenopathy Neurological: Cranial nerves II-XII grossly intact, Neuro grossly intact, Motor Exam 5/5 strength throughout Psych/Mental Status: Normal Affect, Appropriate, Alert and oriented to time, place, person, mood and affect Plan as detailed above. He was also given a prescription for p.o. prednisone and albuterol inhaler as well as nebulizer machine. Patient was counseled exten sively about quitting smoking. [] Patient Problems: Active and Suspected Problems Abnormal cardiac enzyme level (Acute) Abnormal electrocardiogram (Acute) - Physical Exam Vital Signs Temp Pulse Resp BP Pulse Ox 98.0 F 95 18 137/73 H 93 02/10/18 03:20 02/10/18 07:24 02/10/18 07:24 02/10/18 03:20 02/10/18 07:24 Oxygen Flow Rate (L/min) 3 Oxygen Delivery Method Room Air Weight: 144 lb 9.972 oz Body Mass Index (BMI) 24.8 Intake and Output for Last 24 Hours 02/08/18 02/09/18 02/10/18 23:59 23:59 23:59 Intake Total 2104 / 2104 1460 / 1460 655 / 655 Balance 2104 / 2104 1460 / 1460 655 / 655 Microbiology Past 72 Hours 02/07/18 10:10 Bacteria Detection (PCR) - Final Blood Culture (Wb) - Anticubital Left Staphylococcus epidermidis Blood Culture - Preliminary Staphylococcus epidermidis 02/07/18 10:25 Blood Culture - Preliminary Blood Culture (Wb) - Right Hand No growth in 48 hours. 02/07/18 11:40 Urine Culture - Final Urine, Clean Catch Mixed Gram Positive Organisms Laboratory Tests Past 24 Hrs 02/10/18 02/10/18 06:12 06:12 WBC 14.4 H RBC 4.71 Hgb 13.8 Hct 41.3 MCV 87.7 MCH 29.3 MCHC 33.4 RDW 13.8 RDW Differential 44.1 H Plt Count 408 MPV 9.8 Immature Gran % (Auto) 2.100 H Neut % (Auto) 70.7 H Lymph % (Auto) 19.4 [place] % (Auto) 7.6 Eos % (Auto) 0.0 Baso % (Auto) 0.2 Absolute Neuts (auto) 10.2 H Absolute Lymphs (auto) 2.80 Total Counted Not Reportable Sodium 139 Potassium 4.1 Chloride 102 Carbon Dioxide 27.0 Anion Gap 10 BUN 18 Creatinine 0.79 Estim Creat Clear Calc 71.93 Est GFR (MDRD) Af Amer 99 Est GFR (MDRD) Non-Af 82 BUN/Creatinine Ratio 22.9 H Glucose 117 H Calcium 8.9 Discharge Diet: Low fat/ Low Cholesterol Discharge Activity: Return to Normal Activity Weight Bearing Status: Weight bearing as tolerated Call your doctor if you observe: Shortness of breath, Swelling in the ankles, Chest pain, Increased palpitations (irregular heartbeat) Home Medications: Medications to take at Discharge Cetirizine HCl [Zyrtec] 10 mg PO DAILY 02/05/18 Citalopram [Celexa] 20 mg PO DAILY 02/05/18 Montelukast [Singulair] 10 mg PO DAILY 02/05/18 Omeprazole 20 mg PO DAILY 02/05/18 Ipratropium/Albuterol Respimat [Combivent Respimat Inhal [place]] 1 puff INHALATION 4X/DAY 02/07/18 Mometasone Furoate [Asmanex Hfa] 13 gm IH BID 02/07/18 Nicotine [Nicoderm] 14 mg TRANSDERM. DAILY 02/07/18 Albuterol Inhaler [Ventolin Hfa] 2 puff INHALATION Q4H PRN PRN #1 inhaler 02/10/18 Aspirin [Aspirin, Baby] 81 mg PO DAILY@0800 #30 tab.chew 02/10/18 Atorvastatin Calcium [Lipitor] 40 mg PO QHS #40 tablet 02/10/18 Clopidogrel Bisulfate [Plavix] 75 mg PO DAILY #30 tablet 02/10/18 Ipratropium/Albuterol Sulfate [Duoneb] 3 ml INHALATION Q4H.RT #60 ampul.neb 02/10/18 Losartan Potassium [Cozaar] 50 mg PO DAILY #30 tablet 02/10/18 Metoprolol Tartrate [Lopressor (beta tsering)] 25 mg PO BID #60 tablet 02/10/18 Prednisone 40 mg PO DAILY 5 Days #10 tablet 02/10/18 levoFLOXacin tablet [Levaquin tablet] 750 mg PO DAILY #3 tablet 02/10/18 Following Prescrptions Were Given to Patient: Albuterol Inhaler [Ventolin Hfa] 2 puff INHALATION Q4H PRN PRN #1 inhaler PRN Reason: Sob &/Or Wheezing Ipratropium/Albuterol Sulfate [Duoneb] 3 ml INHALATION Q4H.RT #60 ampul.neb Aspirin [Aspirin, Baby] 81 mg PO DAILY@0800 #30 tab.chew Atorvastatin Calcium [Lipitor] 40 mg PO QHS #40 tablet Clopidogrel Bisulfate [Plavix] 75 mg PO DAILY #30 tablet levoFLOXacin tablet [Levaquin tablet] 750 mg PO DAILY #3 tablet Losartan Potassium [Cozaar] 50 mg PO DAILY #30 tablet Prednisone 40 mg PO DAILY 5 Days #10 tablet Metoprolol Tartrate [Lopressor (beta tsering)] 25 mg PO BID #60 tablet Primary Care Physician: Tammi Myrick MD [Primary Care Provider] - Please follow up with your Primary Care Physician in: ONE WEEK Please Follow Up With: Rao Chavez MD When: 1-2 WEEKS Patient Instructions: Preventing Pneumonia, Pneumonia Treatment, Discharge Instructions for Cardiomyopathy Disposition: Home Minutes spent on discharge:: 38 Patient Condition:: Stable Medical Necessity - Tobacco Use Smoking Status: Former smoker Tobacco Use: Cigarettes Meaningful Use Info Meaningful Use Diagnoses (Choose all that apply): AMI - AMI Aspirin given w/in 24hrs of arrival?: Yes ASA at discharge?: Yes Statins at discharge?: Yes Binh/ARB at discharge?: Yes Beta Tsering at discharge?: Yes Done w/ Acute [place] measure.: Yes Code Visit Inpatient E&M: 02121 Disch Hosp
[2018-02-10] MEDS: Pantoprazole Sodium 20 MG Tablet PO (09:26)
[2018-02-10] MEDS: Metoprolol Tartrate 25 MG Tablet PO (09:26)
[2018-02-10] MEDS: Losartan Potassium 50 MG Tablet PO (09:26)
[2018-02-10] MEDS: Loratadine 10 MG Tablet PO (09:26)
[2018-02-10] MEDS: Clopidogrel Bisulfate 75 MG Tablet PO (09:26)
[2018-02-10] MEDS: Aspirin 81 MG TAB.CHEW PO (09:26)
[2018-02-10] MEDS: Montelukast 10 MG Tablet PO (09:27)
[2018-02-10] MEDS: Citalopram 20 MG Tablet PO (09:27)
--- NOTE | 2018-02-10 10:02 | PCM.PN.CARD ---
Subjectve: Patient doing very well this morning, no 24-hour events. EKG shows normal sinus rhythm with resolving anterior T wave inversion. Right radial area is clean/dry/intact. Catheterization done yesterday by Dr. Chavez demonstrated mild nonobstructive coronary disease and possible stress-induced cardiomyopathy. Objective: Vital Signs Temp Pulse Resp BP Pulse Ox 98.4 F 92 16 153/99 H 93 02/10/18 09:16 02/10/18 09:26 02/10/18 09:16 02/10/18 09:16 02/10/18 09:16 Oxygen Flow Rate (L/min) 3 Oxygen Delivery Method Room Air Weight: 144 lb 9.972 oz Body Mass Index (BMI) 24.8 Intake and Output for Last 24 Hours 02/08/18 02/09/18 02/10/18 23:59 23:59 23:59 Intake Total 2103 1460 / 1460 655 / 655 Balance 2103 1460 / 1460 655 / 655 General: Awake, Alert, Oriented x 3 HEENT: PERRL, EOMI, Sclera Non Icteric Neck: Supple, Good ROM, No Lymph Node Enlargement Lungs: Clear to auscultation Cardiovascular: Regular Rhythm, Normal S1, Normal S2, No Murmurs, No Rubs, No Gallops Vascular: No Carotid Bruits, Normal Femoral Pulses, Normal Radial Pulses, Normal Dorsalis Pedal Pulse, Normal Posterior Tibial Pulses Abdomen: Bowel Sounds Present, Soft, Non Tender, No HSM, No Organomegaly Extremities: No Cyanosis, No Clubbing, No edema Neurological: No Focal Motor or Sensory Deficit 02/10/18 06:12: WBC 14.4 H, RBC 4.71, Hgb 13.8, Hct 41.3, MCV 87.7, MCH 29.3, MCHC 33.4, RDW 13.8, RDW Differential 44.1 H, Plt Count 408, MPV 9.8, Immature Gran % (Auto) 2.100 H, Neut % (Auto) 70.7 H, Lymph % (Auto) 19.4, [place] % (Auto) 7.6, Eos % (Auto) 0.0, Baso % (Auto) 0.2, Absolute Neuts (auto) 10.2 H, Total Counted Not Reportable 02/10/18 06:12: Sodium 139, Potassium 4.1, Chloride 102, Carbon Dioxide 27.0, Anion Gap 10, BUN 18, Creatinine 0.79, Est GFR (MDRD) Af Amer 99, Est GFR (MDRD) Non-Af 82, BUN/Creatinine Ratio 22.9 H, Glucose 117 H, Calcium 8.9 Rhythm: EKG: ECHO: Stress Test: Cardiac Cath: PCI: CT Surgery: Holter monitor: EPS: PPM: CXR: Chest CT Scan: Medical Necessity - Tobacco Use Smoking Status: Former smoker Tobacco Use: Cigarettes Assessment/Plan 1. Cardiomyopathy: The patient appears to have stress-induced cardiomyopathy, and she definitely reports a significant amount of psychosocial stress at home. Patient has minimal nonobstructive coronary disease as described in catheterization yesterday with an EF around 45% and elevated ED P. The patient is currently on baby aspirin and would recommend continuing to do so, discontinuation of Plavix, continue beta-magnus, ARB. I reviewed her catheterization and the patient's anterior, apical, and inferior apical hypokinesis is out of proportion to the degree of nonobstructive coronary artery disease noted. Would not recommend stress testing at this time. At this point I would recommend continuing antihypertensive medical therapy, and enrolling the patient in cardiac rehab and repeating her echocardiogram in 3 months time. Patient may be discharged home on medical management and follow-up with Dr. Chavez going forward. 2. Tobacco cessation: I had a long and thorough discussion regarding tobacco cessation with the patient, and she is agreed to quit. 3. Hyperlipidemia: Given her nonobstructive coronary disease and risk factors would recommend aggressive LDL reduction with statin based medications. To new Lipitor and repeat lipid profile in 6 weeks time. 4. Patient may be discharged home from a cardiac standpoint. Code Visit Inpatient E&M: 93220 Subs Hosp L2
[2018-02-10] MEDS: Acetaminophen 325 MG Tablet 650 MG PO (10:33)
[2018-02-12 11:48] LABS: Pathologist Review Reviewed
--- NOTE | 2018-02-13 15:33 | CASEMGMT ---
Addendum entered by Izabel Post 02/13/18 15:52: Pt placed call back to this RN CM and pt states 'this time I am doing much better and getting strength back.' Pt states no questions regarding discharge instructions or medications at this time. Pt states has f/u scheduled with Dr. Myrick and is waiting on a call back from Dr. Chavez's office to set up appt with them. Pt states 'I think I got my insurance straightened out.' Pt states that 'everyone was absolutely wonderful, especially the respiratory lady.' Pt voices no further questions/concerns/needs at this time. Vinny VORA CM Original Note: RN CM Discharge F/U phone call LACE: 10 Strata: 3 Discharge date: 02/10/18 Call date: 02/13/18 Call time: [id number] Attempted to reach pt without success at this time, message left with pt to call this RN CM back if/when able. Vinny VORA CM Admission dx: Pneumonia
== END 2018-02-10 11:47 | disposition home or self-care (01) | DRG 871 ==
LOC: ED 10:12 → PCU 12:44
PROVIDERS: Internal Medicine Cardiovascular Disease; Admitting Provider Student in an Organized Health Care Education/Training Program; Emergency Provider Emergency Medicine; Family Provider Internal Medicine; PCP Internal Medicine; Referring Provider Student in an Organized Health Care Education/Training Program; Visit Provider Student in an Organized Health Care Education/Training Program
DX: A41.9 Sepsis, unspecified organism (principal); J18.9 Pneumonia, unspecified organism; I21.4 Non-ST elevation (NSTEMI) myocardial infarction; I51.81 Takotsubo syndrome; K21.9 Gastro-esophageal reflux disease without esophagitis; F41.9 Anxiety disorder, unspecified; F32.9 Major depressive disorder, single episode, unspecified; E87.6 Hypokalemia; I25.10 Atherosclerotic heart disease of native coronary artery without angina pectoris; J44.9 Chronic obstructive pulmonary disease, unspecified; Z72.0 Tobacco use
CPT/HCPCS: 36415; 71045; 71275; 80048; 80053; 80061; 81001; 83605; 84484; 84703; 85025; 85610; 85730; 87040; 87086; 87088; 87149; 93005; 93306; 93458; 94640; 97802; 99152; 99153; 99285; J7030; J7040; Q9967; A4216; C1769; C1894

== ENCOUNTER → 2018-03-06 14:55 | Outpatient (CLI) | payer OTHER, SELFPAY ==
[2018-02-26 10:06] VITALS: BMI 24.8
--- NOTE | 2018-03-06 14:57 | ECHOL_ITS ---
Reason For Study: DYSPNEA Procedure This was a limited 2D transthoracic echocardiogram. Technically difficult parasternal images. The study was technically difficult. Limited views were obtained. Exam performed in department. Left Ventricle Normal LV size. Segmental dysfunction with preserved ejection fraction (see wall motion). The estimated ejection fraction is 55 %. Unable to assess diastolic dysfunction. Basal inferoseptal: Hypokinetic. Mid-Anterior : Hypokinetic. Mid-Lateral : Hypokinetic. Mid-inferoseptal : Hypokinetic. Anterior [place] : Hypokinetic. Right Ventricle Normal systolic function. Atria Normal left atrium. Normal right atrium. Mitral Valve There is no mitral annular calcification. Normal mitral valve. Tricuspid Valve Normal tricuspid valve. Mild tricuspid valve insufficiency. Right ventricular systolic pressure estimated to be 35 mmHg. Aortic Valve The aortic valve is not well visualized. Pulmonic Valve The pulmonic valve is not well visualized. Pericardium/Pleural No pericardial effusion. MMode/2D Measurements & Calculations LVIDd: 4.4 cm IVSd: 1.0 cm LAV(MOD-bp): 39.4 ml LVIDs: 3.2 cm LVPWd: 0.92 cm LAV(MOD-bp) Indexed: 23.2 ml/m2 RVDd: 2.3 cm FS: 28.0 % LAV(MOD-sp2): 43.1 ml LAV(MOD-sp4): 34.3 ml LA A4C-A/L_phl: 14.0 cm2 RA A4 area: 8.6 cm2 Time Measurements MV dec time: 0.19 sec Doppler Measurements & Calculations MV E max fern: 82.7 cm/sec TR max fern: 284.5 cm/sec MV A max fern: 46.5 cm/sec TR max P.4 mmHg MV E/A: 1.8 Interpretation Summary The study was technically difficult. Limited views were obtained. Segmental dysfunction with preserved ejection fraction (see wall motion). The estimated ejection fraction is 55 %. Mild tricuspid valve insufficiency. Right ventricular systolic pressure estimated to be 35 mmHg. Unable to assess diastolic dysfunction. Ordering Physician: Rao Chavez Referring Physician: KASHIF BERNARD Performed By: Anita Hoover, RDCS, RVT
== END ==
LOC: CVS 14:57
PROVIDERS: Family Provider Internal Medicine; PCP Internal Medicine; Referring Provider Internal Medicine Cardiovascular Disease; Visit Provider Internal Medicine Cardiovascular Disease
DX: I51.81 Takotsubo syndrome (principal)
CPT/HCPCS: 93308

== ENCOUNTER → 2018-07-24 14:48 | Outpatient (CLI) | payer OTHER, SELFPAY ==
[2018-07-11 15:42] VITALS: BMI 25.7
--- NOTE | 2018-07-24 14:50 | ECHOD_ITS ---
Reason For Study: CAD, Takotsubo CMP Procedure This was a 2D Doppler, Color Flow transthoracic echocardiogram. The study was technically difficult. Exam performed in department. Left Ventricle Normal LV size. Left ventricular systolic function is normal. The estimated ejection fraction is 60 %. The global longitudinal strain = -20 % (normal). No evidence for diastolic dysfunction. No regional wall motion abnormalities noted. Right Ventricle Normal RV size. Normal systolic function. Atria Normal left atrium. Normal right atrium. No doppler evidence for ASD. Mitral Valve There is no mitral annular calcification. Normal mitral valve. Trivial mitral valve insufficiency. Tricuspid Valve Normal tricuspid valve. Trivial tricuspid valve insufficiency. Right ventricular systolic pressure estimated to be 30 mmHg. Aortic Valve The aortic valve is not well visualized. Pulmonic Valve The pulmonic valve is not well visualized. Great Vessels Normal sized aortic root. Pericardium/Pleural No pericardial effusion. MMode/2D Measurements & Calculations LVIDd: 4.3 cm IVSd: 0.99 cm Ao root diam: 3.0 cm LVIDs: 2.9 cm LVPWd: 0.83 cm RVDd: 2.0 cm FS: 31.4 % LAV(MOD-bp): 33.5 ml EDV(MOD-sp4): 72.2 ml EDV(MOD-sp2): 92.8 ml LAV(MOD-bp) Indexed: 19.3 ml/m2 ESV(MOD-sp4): 36.8 ml EF(MOD-sp2): 56.6 % LAV(MOD-sp2): 35.5 ml EF(MOD-sp4): 49.0 % LAV(MOD-sp4): 29.4 ml SV(MOD-sp4): 35.4 ml SV(MOD-sp2): 52.6 ml LA A4 area: 12.4 cm2 LA dimension(2D): 3.4 cm RA A4 area: 11.1 cm2 Doppler Measurements & Calculations MV E max fern: 94.1 cm/sec Ao V2 max: 167.2 cm/sec LV V1 max: 125.1 cm/sec MV A max fern: 63.9 cm/sec Ao max P.2 mmHg LV V1 max P.3 mmHg MV E/A: 1.5 PA V2 max: 105.7 cm/sec TR max fern: 261.9 cm/sec TR max P.4 mmHg Interpretation Summary The study was technically difficult. Left ventricular systolic function is normal. The estimated ejection fraction is 60 %. The global longitudinal strain = -20 % (normal). Trivial mitral valve insufficiency. Trivial tricuspid valve insufficiency. Right ventricular systolic pressure estimated to be 30 mmHg. No evidence for diastolic dysfunction. Ordering Physician: Rao Chavez Referring Physician: Tammi Myrick M.D. Performed By: Yesica Elliott RDCS
== END ==
PROVIDERS: Family Provider Internal Medicine; PCP Internal Medicine; Referring Provider Internal Medicine Cardiovascular Disease; Visit Provider Internal Medicine Cardiovascular Disease
DX: I25.10 Atherosclerotic heart disease of native coronary artery without angina pectoris (principal); I51.81 Takotsubo syndrome; E78.2 Mixed hyperlipidemia
CPT/HCPCS: 93306

== ENCOUNTER → 2019-02-05 08:58 | Outpatient (CLI) | payer OTHER, SELFPAY ==
[2019-01-10 16:00] VITALS: BMI 26.9
[2019-02-05 10:27] LABS: AST(SGOT) 12 U/L (15-37); Alanine Aminotransfer ALT/SGPT 22 U/L (13-56); Albumin, Serum 3.9 g/dL (3.2-5.0); Alkaline Phosphatase 166 U/L (45-117); Cholesterol 141 mg/dL (200); Globulin 3.5 g/dL (2.2-4.2); High Density Lipoprotein 42 mg/dL; Protein, Total 7.4 g/dL (6.4-8.2); Triglycerides 86 mg/dL; Very Low Density Lipoprotein 17 mg/dL (5-40)
== END ==
PROVIDERS: Family Provider Internal Medicine; PCP Internal Medicine; Referring Provider Physician Assistant Medical; Visit Provider Physician Assistant Medical
DX: E78.2 Mixed hyperlipidemia (principal)
CPT/HCPCS: 36415; 80061; 80076

== ENCOUNTER 2020-12-08 14:08 | Emergency (ER) | payer MEDICAID, SELFPAY ==
[2020-12-08 14:09] VITALS: BP 170/112; PULSE 120; RESP 16; TEMP 36; O2SAT 100; BMI 26.9
--- NOTE | 2020-12-08 14:15 | EKG12_ITS ---
Test Reason : CP Blood Pressure : / mmHG Vent. Rate : 110 BPM Atrial Rate : 110 BPM P-R Int : 132 ms QRS Dur : 078 ms QT Int : 352 ms P-R-T Axes : 078 -15 071 degrees QTc Int : 476 ms Sinus tachycardia Nonspecific ST and T wave abnormality Abnormal ECG Confirmed by LOIDA BRAXTON, MARS ([id number]), digital editor ALEJANDRO LIN ([id number]) on 12/10/2020 8:51:23 AM Referred By: SEEMA Confirmed By:MARS MARISCAL MD
--- NOTE | 2020-12-08 14:25 | RAD_ITS ---
STUDY: X-RAY CHEST REASON FOR EXAM: Female, 55 years old. Chest pain TECHNIQUE: Single AP portable view of the chest. COMPARISON: Comparison is made with prior study dated 02/07/2018. FINDINGS: There is hyperinflation of the lungs consistent with chronic obstructive lung disease (COPD). There is no demonstrated pleural abnormality. Normal size heart. Normal mediastinum and summer. Normal visualized pulmonary arteries. Normal visualized aortic arch and descending thoracic aorta. Normal visualized thoracic spine. Normal visualized ribs, clavicles, and shoulders. There is no demonstrated abnormality of the visualized soft tissue structures of the upper abdomen. RAD/Chest 1 View (Portable) IMPRESSION: Hyperinflation. Electronically Signed: Collin Alberto MD at 14:39 EDT , Service support ,
[2020-12-08 14:48] LABS: Absolute Lymphocyte Count 2.67 X10^3/uL (0.83-4.51); Basophil# 0.04 X10^3/uL; Basophil% 0.5 % (0-1); Eosinophils% 1.2 % (0-5); Hematocrit 43.6 % (37-47); Hemoglobin 14.4 g/dL (12.0-15.0); Lymphocyte # 2.67 X10^3/ul (0.83-4.51); Lymphocyte % 31.7 % (19-41); Mean Corpuscular Hgb 30.3 pg (27.0-32.0); Mean Corpuscular Volume 91.6 fL (81-99); Mean Platelet Vol. 9.3 fl (6.2-12.0); Monocyte# 0.56 X10^3/uL; Monocyte% 6.7 % (0-10); NRBC Flagged by Analyzer 0 % (0-5); Neutrophil # 5.02 X10^3/uL (2.7-7.7); Neutrophil % 59.7 % (47-70); Platelet Count 298 K/mm3 (150-450); Red Blood Count 4.76 M/mm3 (4.2-5.4); White Blood Count 8.4 K/mm3 (4.4-11.0)
[2020-12-08 15:06] LABS: Anion Gap 4 (5-15); BUN 4 mg/dL (7-18); BUN/Creat Ratio 5.1 RATIO (10-20); Calcium,Total 9.5 mg/dL (8.5-10.1); Chloride 99 mmol/L (98-107); Creatinine, Serum 0.78 mg/dL (0.55-1.02); EST Glomerular Filtration Rate 81 mL/min (>60); Est Glom Filt Rate - Afr Amer 98 mL/min (>60); Estimated Creatinine Clearance 68.21 ml/min; Glucose 92 mg/dL (74-106); Potassium 3.5 mmol/L (3.5-5.1); Sodium Level 133 mmol/L (136-145); Troponin-I HS 8 pg/mL (3.0-54.0)
[2020-12-08 15:08] VITALS: BP 158/100; PULSE 96; RESP 15; O2SAT 99
--- NOTE | 2020-12-08 15:25 | EDS_ITS ---
HPI History of Present Illness Chief Complaint: Chest Pain Informant: patient Onset/Context/Timing Onset: Yesterday Context: Gradual Onset Timing: Waxes and wanes Current Severity: Mild Maximum Severity: Moderate Narrative Narrative: Patient presents secondary to chest pain. She went to see her PCP today due to to not feeling well and having a pressure-like band around her lower chest/upper abdomen. Patient states that she was burping more than normal Monday and Monday. Yesterday, Monday, patient had this pressure sensation across her upper abdomen and lower chest. She tried Rolaids without improvement. She still felt shaky today but states the pain is improved so she went to her doctor. Her blood pressure was quite elevated there and was sent to the emergency room. Patient denies nausea and vomiting. She has not eaten anything since yesterday. [facility] Medical History Abnormal cardiac enzyme level Abnormal electrocardiogram Anxiety and depression Asthma exacerbation Atherosclerotic heart disease of [place] coronary artery without angina pectoris COPD exacerbation COPD with asthma GERD (gastroesophageal reflux disease) Mixed hyperlipidemia PNA (pneumonia) Sepsis Takotsubo syndrome Home Medications citalopram 20 mg PO DAILY 02/05/18 [History Last Taken 02/06/18 06:00] montelukast 10 mg PO DAILY 02/05/18 [History Last Taken 02/06/18 17:00] omeprazole 20 mg PO DAILY 02/05/18 [History Last Taken 02/06/18 06:00] albuterol sulfate 2 puff INHALATION Q4H PRN PRN #1 inhaler 02/10/18 [Rx Last Taken Unknown] aspirin 81 mg PO DAILY@0800 #30 tab.chew 02/10/18 [Rx Last Taken Unknown] alprazolam 0.5 mg tablet 0.5 mg PO QHS PRN tab 02/26/18 [History Last Taken Unknown] cetirizine 10 mg tablet 10 mg PO DAILY 04/12/18 [History Last Taken Unknown] fluticasone fur. 100 mcg-umeclid 62.5 mcg-vilant 25 mcg inhalat.powder 1 inh INHALATION DAILY 04/12/18 [History Last Taken Unknown] ipratropium 0.5 mg-albuterol 3 mg (2.5 mg base)/3 mL nebulization soln 3 ml INHALATION Q4H.RT PRN ampul.neb 01/10/19 [History Last Taken Unknown] losartan 25 mg tablet 25 mg PO DAILY #90 tab 05/07/19 [Rx Last Taken Unknown] atorvastatin 40 mg tablet 40 mg PO QHS #90 tab 02/26/20 [Rx Last Taken Unknown] Allergy/AdvReac Type Severity Reaction Status Date / Time acetaminophen [From Vicodin] AdvReac Nausea/Vom/ Verified 12/08/20 14:14 Diarrhea bupropion HCl AdvReac Nausea/Vom/ Verified 12/08/20 14:14 [From Wellbutrin] Diarrhea hydrocodone bitartrate AdvReac Nausea/Vom/ Verified 12/08/20 14:14 [From Vicodin] Diarrhea tetracycline AdvReac Nausea/Vom/ Verified 12/08/20 14:14 Diarrhea Family History Other Diabetes Heart disease Surgical History History of left heart catheterization (LHC) (~02/09/18) History of tonsillectomy History of tubal ligation Status post right foot surgery Social History Smoking Status: Current every day smoker tobacco type: cigarettes quit status: considering quitting alcohol intake: never substance use type: does not use caffeine: Yes Type: carbonated beverages Number of servings: 6 ROS ROS ED Constitutional Constitutional ED: Denies chills or fever(s) Eyes Eyes: Denies change in vision ENT ENT ED: Denies sore throat Cardiovascular Cardiovascular: Reports chest pain Respiratory/Chest Respiratory/Chest: Denies cough or dyspnea Gastrointestinal Gastrointestinal: Reports abdominal pain; Denies diarrhea, nausea or vomiting Genitourinary Genitourinary ED: Denies dysuria Musculoskeletal Musculoskeletal: Reports back pain Integumentary Denies rash Neurologic Neurologic: Denies headache(s) or weakness Allergic/Immunologic Allergic/Immunologic ED: Denies urticaria EXAM Physical Exam Const Vital Signs: 12/08/20 14:09 12/08/20 14:46 12/08/20 15:08 Temperature 96.8 F L Temperature Source Temporal Pulse Rate 120 H 96 Respiratory Rate 16 15 Respiratory Effort Normal Blood Pressure 170/112 H 158/100 H Blood Pressure Mean 131 119 Pulse Ox 100 99 Oxygen Delivery Method Room Air Room Air 12/08/20 16:00 Temperature Temperature Source Pulse Rate 83 Respiratory Rate 18 Respiratory Effort Blood Pressure 172/92 H Blood Pressure Mean 118 Pulse Ox 98 Oxygen Delivery Method Room Air Positive well nourished and well developed General Appearance ED: well developed HEENT Reports normocephalic and head/scalp atraumatic Eyes PERRL and EOMs intact bilaterally Neck supple Chest Wall inspection of chest normal and palpation of chest normal Resp normal respiratory effort and clear to auscultation bilaterally Cardio regular rate and regular rhythm GI Auscultation: normoactive bowel sounds Palpation: soft and tender epigastric Extremity normal to inspection Neuro oriented x3 and no sensory deficits noted Sensorium / Orientation: alert Motor Exam: strength 5/5 throughout Psych mental status grossly normal Skin no rashes or lesions noted MDM MDM MDM Narrative Medical decision making narrative: EKG, chest x-ray, lab work obtained. Patient given 500 cc IV fluid bolus. Lab Data Attestation: I reviewed the patient's lab results. Labs: Laboratory Results - last 24 hr 12/08/20 12/08/20 12/08/20 14:39 14:39 14:39 WBC 8.4 RBC 4.76 Hgb 14.4 Hct 43.6 MCV 91.6 MCH 30.3 MCHC 33.0 RDW Std Deviation 44.0 H RDW Coeff of Oswaldo 13.0 Plt Count 298 MPV 9.3 Immature Gran % (Auto) 0.200 Neut % (Auto) 59.7 Lymph % (Auto) 31.7 [place] % (Auto) 6.7 Eos % (Auto) 1.2 Baso % (Auto) 0.5 Absolute Neuts (auto) 5.0 Absolute Lymphs (auto) 2.67 Nucleated RBC % 0 Sodium 133 L Potassium 3.5 Chloride 99 Carbon Dioxide 30.0 Anion Gap 4 L BUN 4 L Creatinine 0.78 Estim Creat Clear Calc 68.21 Est GFR (MDRD) Af Amer 98 Est GFR (MDRD) Non-Af 81 BUN/Creatinine Ratio 5.1 L Glucose 92 Calcium 9.5 Total Bilirubin 0.30 Direct Bilirubin 0.09 AST 15 ALT 20 Alkaline Phosphatase 154 H Troponin I High Sens 8 Total Protein 8.0 Albumin 4.1 Globulin 3.9 Lipase 12/08/20 14:39 WBC RBC Hgb Hct MCV MCH MCHC RDW Std Deviation RDW Coeff of Oswaldo Plt Count MPV Immature Gran % (Auto) Neut % (Auto) Lymph % (Auto) [place] % (Auto) Eos % (Auto) Baso % (Auto) Absolute Neuts (auto) Absolute Lymphs (auto) Nucleated RBC % Sodium Potassium Chloride Carbon Dioxide Anion Gap BUN Creatinine Estim Creat Clear Calc Est GFR (MDRD) Af Amer Est GFR (MDRD) Non-Af BUN/Creatinine Ratio Glucose Calcium Total Bilirubin Direct Bilirubin AST ALT Alkaline Phosphatase Troponin I High Sens Total Protein Albumin Globulin Lipase 146 Radiography Chest X-Ray - ED: 1 View, Read by ED Physician, Normal, Heart, Lungs and Mediastinum Diagnostic Testing: Clinical Impression(s) from Imaging Studies Chest X-Ray 12/08/20 14:25 IMPRESSION: Hyperinflation. Electronically Signed: Collin Alberto MD at 14:39 EDT , Service support , EKG Initial EKG: Attestation: I personally reviewed and interpreted this EKG as follows: Interpretation: Sinus Tachycardia (Sinus tach at 110. No significant ST change.) Treatment and Re-Evaluation Comments:: Patient was tachycardic in triage at 120 but heart rate was 88 at the time of my evaluation. Blood pressure was 158/100 the time of my evaluation. Lab work is unremarkable including normal troponin, LFTs, lipase. Chest x-ray unremarkable. Patient does state that she feels better today than she has the past couple days. She is given return instructions and will follow bland diet, slowly advance. I did encourage her to monitor her blood pressure and keep a journal of this. Discharge Plan Triage Chief Complaint: Chest Pain ED Provider: Sayra Cerrato Dx/Rx/DC Orders Clinical Impression: Epigastric abdominal pain Instructions: ED Epigastric Pain Uncertain Cause Prescriptions: No Action alprazolam 0.5 mg tablet 0.5 mg PO QHS PRN (Reason: Anxiety) RF: 0 Trelegy Ellipta 100-62.5-25 mcg blister with device 1 inh INHALATION DAILY RF: 0 cetirizine 10 mg tablet 10 mg PO DAILY RF: 0 ipratropium-albuterol 0.5 mg-3 mg(2.5 mg base)/3 mL solution for nebulization 3 ml Inhalation Q4H.RT PRN (Reason: Shortness Of Breath) RF: 0 citalopram 20 MG tablet 20 mg PO DAILY RF: 0 montelukast 10 MG tablet 10 mg PO DAILY RF: 0 omeprazole 20 MG tablet,delayed release (DR/EC) 20 mg PO DAILY RF: 0 aspirin 81 MG tablet,chewable 81 mg PO DAILY@0800 Qty: 30 RF: 1 albuterol sulfate 1 INHALER inhaler 2 puff Inhalation Q4H PRN PRN (Reason: Sob &/Or Wheezing) Qty: 1 RF: 1 losartan 25 mg tablet 25 mg PO DAILY Qty: 90 RF: 3 atorvastatin 40 mg tablet 40 mg PO QHS Qty: 90 RF: 3 Stand Alone Forms: ED Work / School Excuse Primary Care Provider: Tammi Myrick Referrals: Tammi Myrick MD [Primary Care Provider] - 1 Week if not improving Disposition Disposition: Home, Self Care
[2020-12-08 16:00] VITALS: BP 172/92; PULSE 83; RESP 18; O2SAT 98
[2020-12-08 16:13] LABS: Lipase 146 U/L (73-393)
[2020-12-08 16:17] LABS: AST(SGOT) 15 U/L (15-37); Alanine Aminotransfer ALT/SGPT 20 U/L (13-56); Albumin, Serum 4.1 g/dL (3.2-5.0); Alkaline Phosphatase 154 U/L (45-117); Bilirubin, Direct 0.09 mg/dL (0.00-0.30); Globulin 3.9 g/dL (2.2-4.2)
== END 2020-12-08 16:41 | disposition home or self-care (01) ==
PROVIDERS: Emergency Provider Emergency Medicine; PCP Internal Medicine
DX: R10.13 Epigastric pain (principal); R07.9 Chest pain, unspecified; I25.10 Atherosclerotic heart disease of native coronary artery without angina pectoris; I51.81 Takotsubo syndrome; J44.9 Chronic obstructive pulmonary disease, unspecified; E78.2 Mixed hyperlipidemia; K21.9 Gastro-esophageal reflux disease without esophagitis; F32.A Depression, unspecified; F41.9 Anxiety disorder, unspecified; F17.210 Nicotine dependence, cigarettes, uncomplicated; Z79.82 Long term (current) use of aspirin; Z79.899 Other long term (current) drug therapy
CPT/HCPCS: 71045; 80048; 80076; 83690; 84484; 85025; 93005; 96360; 99283; A4216

== ENCOUNTER → 2020-12-18 | Outpatient (CLI) | payer MEDICAID, SELFPAY | END | disposition home or self-care (01) | LOC: LABSPEC 11:16 | PROVIDERS: PCP Internal Medicine; Referring Provider Physician Assistant Surgical; Visit Provider Physician Assistant Surgical | DX: Z11.52 Encounter for screening for COVID-19 (principal) | CPT/HCPCS: 87635; U0005; U0003 ==

== ENCOUNTER → 2021-01-13 12:44 | Outpatient (CLI) | payer MEDICAID, SELFPAY ==
--- NOTE | 2021-01-13 12:48 | ECHOD_ITS ---
Reason For Study: Chest pain Procedure This was a 2D Doppler, Color Flow transthoracic echocardiogram. The study was technically difficult. Exam performed in department. Left Ventricle Normal LV size. Left ventricular systolic function is normal. The estimated ejection fraction is 55 %. The global longitudinal strain = -18 % (normal). No evidence for diastolic dysfunction. No regional wall motion abnormalities noted. Right Ventricle Normal RV size. Normal systolic function. Atria Normal left atrium. Normal right atrium. No doppler evidence for ASD. Mitral Valve There is no mitral annular calcification. Normal mitral valve. Trivial mitral valve insufficiency. Tricuspid Valve Normal tricuspid valve. Trivial tricuspid valve insufficiency. Unable to estimate RV systolic pressure/pulmonary artery pressure due to technically difficult study. Aortic Valve The aortic valve is not well visualized. Pulmonic Valve The pulmonic valve is not well visualized. Great Vessels Normal sized aortic root. Pericardium/Pleural No pericardial effusion. MMode/2D Measurements & Calculations LVIDd: 4.8 cm IVSd: 0.98 cm Ao root diam: 2.7 cm LVIDs: 3.8 cm LVPWd: 0.82 cm RVDd: 2.5 cm FS: 21.1 % LAV(MOD-bp): 36.3 ml LVAd ap4: 26.5 cm2 LVAd ap2: 29.1 cm2 LAV(MOD-bp) Indexed: 21.1 ml/m2 LVLd ap4: 7.8 cm LVLd ap2: 8.0 cm LAV(MOD-sp2): 40.1 ml EDV(MOD-sp4): 74.0 ml EDV(MOD-sp2): 88.6 ml LAV(MOD-sp4): 31.6 ml EDV(sp4-el): 76.6 ml EDV(sp2-el): 89.7 ml LVAs ap4: 18.6 cm2 LVAs ap2: 17.2 cm2 LVLs ap4: 6.7 cm LVLs ap2: 7.0 cm ESV(MOD-sp4): 43.8 ml ESV(MOD-sp2): 36.3 ml ESV(sp4-el): 43.5 ml ESV(sp2-el): 36.0 ml EF(MOD-sp4): 40.8 % EF(MOD-sp2): 59.0 % EF(sp4-el): 43.3 % SV(MOD-sp4): 30.2 ml SV(MOD-sp2): 52.3 ml SV(sp4-el): 33.1 ml LA dimension(2D): 3.1 cm LA A4 area: 13.0 cm2 RA A4 area: 9.3 cm2 Doppler Measurements & Calculations MV E max josé: 88.5 cm/sec Lat Peak E' José: 10.9 cm/sec Med Peak E' José: 7.9 cm/sec MV A max josé: 78.8 cm/sec E/E' lat: 8.2 E/E' med: 11.2 MV E/A: 1.1 Ao V2 max: 172.0 cm/sec LV V1 max: 107.2 cm/sec PA V2 max: 99.0 cm/sec Ao max P.8 mmHg LV V1 max P.6 mmHg ECHO/Echo Complete Interpretation Summary The study was technically difficult. Left ventricular systolic function is normal. The estimated ejection fraction is 55 %. The global longitudinal strain = -18 % (normal). Trivial mitral valve insufficiency. Trivial tricuspid valve insufficiency. Unable to estimate RV systolic pressure/pulmonary artery pressure due to techni corinne difficult study. No evidence for diastolic dysfunction. Ordering Physician: Rao Chavez Referring Physician: Tammi Myrick M.D. Performed By: Yesica Elliott, PARUL
== END ==
PROVIDERS: PCP Internal Medicine; Referring Provider Internal Medicine Cardiovascular Disease; Visit Provider Internal Medicine Cardiovascular Disease
DX: R06.00 Dyspnea, unspecified (principal); R06.89 Other abnormalities of breathing; I51.81 Takotsubo syndrome; I25.10 Atherosclerotic heart disease of native coronary artery without angina pectoris; I26.99 Other pulmonary embolism without acute cor pulmonale; E78.2 Mixed hyperlipidemia
CPT/HCPCS: 93306

== ENCOUNTER → 2021-07-19 | Outpatient (CLI) | payer MEDICAID, SELFPAY ==
[2021-07-19 13:11] LABS: Anion Gap 2 (5-15); BUN 5 mg/dL (7-18); BUN/Creat Ratio 6.7 RATIO (10-20); Calcium,Total 9.4 mg/dL (8.5-10.1); Chloride 104 mmol/L (98-107); Creatinine, Serum 0.75 mg/dL (0.55-1.02); EST Glomerular Filtration Rate 86 mL/min (>60); Est Glom Filt Rate - Afr Amer 104 mL/min (>60); Glucose 72 mg/dL (74-106); Potassium 3.1 mmol/L (3.5-5.1); Sodium Level 139 mmol/L (136-145)
[2021-07-19 13:13] LABS: BNP,B-Type NATRIURETIC PEPTIDE 18.5 pg/mL (0-100)
== END | disposition home or self-care (01) ==
PROVIDERS: PCP Internal Medicine; Visit Provider Nurse Practitioner Family
DX: R06.00 Dyspnea, unspecified (principal)
CPT/HCPCS: 36415; 80048; 83880

== ENCOUNTER → 2022-05-13 | Outpatient (CLI) | payer MEDICAID, SELFPAY ==
--- NOTE | 2022-05-13 12:52 | PR.HP_ITS ---
History of Present Illness Arrival date:: 05/13/22 Arrival time:: 12:53 Date of Referral:: 04/14/22 Date of Evaluation: 05/13/22 Referring Physician: Dr. Maria Moss Primary Diagnosis: COPD, Severe Stage III mMRC Breathless Scale: When is the patient short of breath? Y/N Grade: Description of Breathlessness: 0 I only get breathless with strenuous exercise. 1 I get short of breath when hurrying on level ground or walking up a slight hill. 2 On level ground, I walk slower than people of the same age because of breathless, or have to stop for breath when walking at my own pace. 3 I stop for breath after walking 100 yards or after a few minutes on level ground. 4 I am too breathless to leave the house or I am breathless when dressing. Respiratory Problems: Yes: Fatigue, Wheezing, Able to Speak in Full Sentences, Anxiety, Panic, Dyspnea with Activity No: Dizziness, Ankle Swelling, Dyspnea at Rest, Dyspnea Lying Down Flat - Secretions Cough:: No Hx of Sleep Apnea: Yes Do you snore loudly (louder than talking or can be heard through closed doors)?: No Do you often feel tired/ fatigued/ sleepy during daytime?: Yes Has anyone observed you stop breathing during sleep?: No History of Hypertension (for STOP score): Yes STOP Results: Positive Home Medications: Home Medications montelukast 10 mg tablet 10 mg PO DAILY COPD 02/05/18 albuterol sulfate 90 mcg/actuation aerosol inhaler 2 puff inhalation Q4H PRN PRN Sob &/Or Wheezing ##1 02/10/18 aspirin 81 mg chewable tablet 81 mg PO DAILY@0800 ##30 02/10/18 alprazolam 0.5 mg tablet 0.5 mg PO QHS PRN Anxiety 02/26/18 cetirizine 10 mg tablet 10 mg PO DAILY 04/12/18 ipratropium 0.5 mg-albuterol 3 mg (2.5 mg base)/3 mL nebulization soln 3 ml inhalation Q4H.RT PRN Shortness Of Breath 01/10/19 apixaban 5 mg tablet (Eliquis) 5 mg PO BID 01/06/21 citalopram 20 mg tablet 30 mg PO DAILY ANXIETY 01/07/21 budesonide-formoterol HFA 160 mcg-4.5 mcg/actuation aerosol inhaler 2 puff inhalation BID 07/19/21 furosemide 40 mg tablet (Lasix) 40 mg PO .PRN PRN edema #30 tabs 07/19/21 omeprazole 40 mg capsule,delayed release 40 mg PO DAILY 07/19/21 varenicline 1 mg tablet tablet PO 07/19/21 atorvastatin 40 mg tablet 40 mg PO QHS #90 tabs 09/27/21 amlodipine 10 mg tablet 10 mg PO DAILY 05/13/22 cyclobenzaprine 5 mg tablet 10 mg PO TID PRN Nasal Congestion 05/13/22 triamcinolone acetonide 1 spray BID 05/13/22 Allergies/Adverse Reactions: Allergies acetaminophen [From Vicodin] Adverse Reaction (Verified 07/19/21 11:03) Nausea/Vom/Diarrhea bupropion HCl [From Wellbutrin] Adverse Reaction (Verified 07/19/21 11:03) Nausea/Vom/Diarrhea hydrocodone bitartrate [From Vicodin] Adverse Reaction (Verified 07/19/21 11:03) Nausea/Vom/Diarrhea tetracycline Adverse Reaction (Verified 07/19/21 11:03) Nausea/Vom/Diarrhea Medical Utilization Do you use a peak flow meter at home?: No Do you use a spacer device with your inhalers?: Yes Number of hospital visits in the last year?: 0 Number of emergency room visits in the last year?: 0 Do you see your physician on a regular schedule?: Yes How often?: 3 months Advanced Directives - Advanced Directives Power of Residential Sales: No Living Will: No Advance Directives Information Provided: Yes Advance Directives on File: No DNR Order?:: No - MOLST See MOLST form: No Past Medical History - Covid-19 Screening Fever: No Unexplained muscle aches: No Current respiratory symptoms: Yes - Just normal COPD srelated symptoms Upper respiratory infections symptoms: No Gastro-intestinal symptoms: No [id number] symptoms: No Has tested positive for COVID-19 in last 30 days: No Date of testin05/13/22 - unvaccinated Had contact w/person w/symptoms or Covid-19 (+) last 14 days: No Has High Risk Exposures ID'd by Health dept/Inf Control team: No 65 years or older:: No Lives in Assisted Living facility:: No Has a chronic lung disease or moderate to severe asthma:: Yes Has a serious heart condition:: No Immunocompromised:: No Severely obese (Body Mass Index of 40 or higher):: No Diabetic:: No Has chronic kidney disease undergoing dialysis:: No Has liver disease:: No Medical History: Past Medical History (Last Updated 07/19/21 @ 11:15 by Isabel Hansen) Abnormal cardiac enzyme level R74.8 Abnormal electrocardiogram R94.31 Anxiety and depression F41.9, F32.9 Asthma exacerbation J45.901 Atherosclerotic heart disease of [place] coronary artery without angina pectoris I25.10 Mild COPD exacerbation J44.1 COPD with asthma J44.9 GERD (gastroesophageal reflux disease) K21.9 H/O MTHFR mutation Onset Date: ~2021 Z15.89 Mixed hyperlipidemia E78.2 PNA (pneumonia) J18.9 Pulmonary embolism I26.99 DX 12/30/[address] @ [facility] Pulmonary nodules R91.8 Sepsis A41.9 Takotsubo syndrome I51.81 Surgical History: Past Surgical History (Last Reviewed 07/19/21 @ 11:07 by Isabel Hansen) History of left heart catheterization (LHC) Onset Date: ~02/09/18 Z98.890 LEFT MAIN: Mild luminal irregularities; LEFT ANTERIOR DECENDING ARTERY: Mild luminal irregularities; CIRCUMFLEX ARTERY: Mild luminal irregularities; RIGHT CORONARY ARTERY: Mild luminal irregularities; VALVE FINDINGS: Normal Aortic Valve function; Normal Mitral Valve function; AORTIC ROOT: Angiographically normalper cath 02/09/18 History of tonsillectomy Z90.89 History of tubal ligation Z98.51 Status post right foot surgery Z98.890 Family History: Family History (Last Reviewed 07/19/21 @ 11:07 by Isabel Hansen) Other Diabetes Heart disease Social History - Smoking History Smoking Status: Current every day smoker Years Smokin Packs Smoked per Day: 1 Hx Tobacco Use: Yes Hx Smoking Exposure: Yes - Alcohol Use Alcohol Usage: No - Substance Abuse Hx Substance Use: No - Occupation Occupation (List type of work in comments):: Unemployed - filing for disability - Hobbies, Recreation, Social Activities Hobbies: Sewing - scrabbooking, crafts Recreational Activities: I am able to engage in a few activities Functioning ADL/IADL - Current Ability Current Ability: Independent Self-Care (e.g.,grooming, dressing, & bathing), Independent Ambulation, Independent Transfer, Independent Household tasks (e.g., light meal prep, laundry, shopping) - Pt Functioning Prior to Problem Prior Functioning: Self-Care (e.g.,grooming, dressing, & bathing): Independent, Ambulation: Independent, Transfer: Independent, Household tasks (e.g., light meal prep, laundry, shopping): Independent Social Environment - Status Marital Status: - Current Living Arrangements Living Environment:: Alone - Children How many children do you have?: 3 Do any of your children live nearby?: Yes - 2 - Safety Do you feel safe in your surroundings?: Yes - Assistance Do you need any assistance at home?: no Review of Systems Review of Systems: Right click = Denies (Slash). Left click = Reports ([place]) Respiratory: Reports: SOB upon Exertion, Wheezing, Appetite, Normal - maybe a little less than normal, Fatigue. Denies: SOB at Rest, Sputum production, Dizziness/Lightheadedness, Sexual changes, Sleep, Normal Is Patient Pain Free?: Yes Pain Location: none Pain Level: 0/10 Risk Factor Assessment - Chief Complaint Chief Complaint: 57 yr old female patient referred to pulmonary rehab by Dr. Yesenia Moss for treatment of her COPD. The patietn is a current smoker/vape user with PMH significant for mild asthma, severe COPD VTE and is on chronic Eliquis. - Vital Signs Temperature: 98.6 F Pulse Rate: 110 Pulse Rhythm: Regular Respiratory Rate: 18 Pulse Ox: 96 Blood Pressure: 126/78 - Obesity Height: 5 ft 4 in Weight:: 151 lb Weight in Pounds: 151.0 lbs Weight Source: Stated by Patient Body Mass Index (BMI): 25.9 Nutritional Referral for Obesity: No - Physical Activity Physical Inactivity: Recreational activity - Daily activity - Risk Stratification Risk Guidelines: Lowest Risk: Risk Factor for Dyslipidemia, Risk Factor for Diabetes, Risk Factor for Obesity, Risk Factor for Hypertension, Risk Factor for Sedentary Lifestyle, Moderate Risk: Risk Factor for Sedentary Lifestyle, Highest Risk: Risk Factor for Smoking Motivation - Motivation to Participate On a scale of 1 to 10, how prepared are you to commit to attending program?: 10 - if help me all for it! What do you see as barriers to successfully being able to complete the program?: sister's appointments for chemo What do you see as the benefits of succesfully completing the program? In other words, what do you hope to get out of participating in the program?: breathing better, doing more for myself Are there issues you are dealing with that will interfere with completing the program?: taking sister to her chemo appointments Do you have a spouse or signficant other, family or friends who will help support you to complete the program?: son, sister
--- NOTE | 2022-05-13 12:53 | PR.ITP_ITS ---
General Information2 - General Information Admitting Diagnosis: COPD Secondary Diagnosis: Asthma, allergic rhinitis, tobacco use disorder Gold Classification:: GOLD 3: Severe - PFT FEV1:: 1.10 - 42% FVC:: 2.28 - 69% FEV1/FVC%:: 48 - Personal Learning Style/Barriers Personal Learning Style:: Audio/Visual, Written Barriers to Learning: Vision impaired Educational Classes ND: Living with Chronic Lung Disease: Initial Assessment, Breathing Retraining: Initial Assessment, Exercise: Initial Assessment, Quitting smoking: Initial Assessment - Education/Goals Individual Counseling: Initial Assessment: Nicotine/Smoking ND Patient Goals: Experience less dyspnea: Initial Assessment, Improve energy level: Initial Assessment, Improve the ability to cope with ADLs: Initial Assessment, Control panic/anxiety: Initial Assessment, Improve my quality of life: Initial Assessment, Reduce Stress/relaxation techniques: Initial Assessment Exercise - Initial Assessment - Visit Date of Eval: 05/13/22 Session Number:: 0 - Pre-pulm rehab evaluation - Problem/Goals Problems: Deconditioning, No regular exercise, Knowledge deficit exercise guidelines, Knowledge deficit exercise safety Goals:: Aerobic exercise 30-60 mins x 12 weeks [36 sessions] - Physician Prescribed Exercise Modalities: Treadmill, Airdyne, NuStep Frequency (days/week): 3 Duration (Minutes):: 30-45 Intensity: 60-80% of age predicted maximum heart rate reserve Current METSs:: 3.0. Target HR:: 115 - THRR 98-115 Resting Blood Pressure: 126/78 EKG Type: NSR - Plan Plan and Plan to Review:: Benefits of exercise, Core components of exercise, How to measure dyspnea level, How to monitor dyspnea level, Exercise intensity, Exercise safety guideline, Home exercise guidelines, Milady: 3-4/11-13 Nutrition/Wt Mgmt - Initial - Visit Date of Eval: 05/13/22 Session Number:: 0 - ptre-pulm rehab evaluation - Problems/Goals Goals: BMI 21-25 - Weight Management Admit Height:: 5 ft 4 in Admit Weight:: 151 lb Admit BMI:: 25.9 - Intervention Referral to dietitian:: No Will attend diet classes:: Yes Intervention/Plan: Instruct on ideal BMI & set weight loss goal w/patient Psychosocial - Initial Assess - Visit Date of Eval: 05/13/22 Session Number:: 0 - Pre-pulm rehab evaluation - Problems/Goals Psychosocial Goals: 7. Improved Q.O.L. - Psychosocial Test Tool Used:: Pulmonary QOL, PHQ-9 Questionnaire - Referral to Behavioral Health PS - Interventions: Yes Attend Stress Management Classes, No Referral to Behavioral Health if PHQ-9 score >9:, No Referral to [facility], No Referral to Physician if PHQ-9 if score is 5-9: - Intervention/Plan: See List Interventions/Plan:: Assess stressors,coping strategies & signs of derpression on admission, Instruct/assist pt to develop coping & personal stress Mgt strategies, Instruct patient to recognize signs & symptoms of depression, Instruct patient to recog Oxygen & Oxygen Titration Init - Visit Date of Eval: 05/13/22 Session Number:: 0 - Pre-p[ulm rehab evaluation - Initial Assessment Oxygen on Admission: None Patient Reports:: Non-productive cough - Plans Plan: Monitor SpO2 rest & with exercise Bronchial Hygiene Plan: Controlled cough, Vibratory PEP device, Hydration, Hand hygiene, Signs/symptoms to report: Core Components - Initial - Visit Date of Eval: 05/13/22 Session Number:: 0 - Pre-pulm rehab evaluation - Hypertension Hypertension Diagnosis:: Hypertension ICD-10 I10 BP: 128/78 [place] [employer] Hypertension Guidelines: [place] [employer] Hypertension Guidelines. Normal BP Less than 120/80. Elevated BP 120/80. Hypertension Stage 1: BP 130-139/80-89. Hypertesnion Stage 2: BP 140 or higher/90 or higher. Hypertension Crisis: BP higher than 180/120 Blood Pressure: 128/78 Low Sodium diet: Yes Outcomes/Goals: Able to verbalize/achieve optimal blood pressure <130/80, Incorporates diet changes & exercise for blood pressure control by DC - Tobacco - Initial Assessment Tobacco Program Goals: Complete smoking cessation. Attend education classes. Improve Knowledge Test score Stages of Change:: Pre-contemplation Learning Barriers: Vision Do you have family support?: Yes Tobacco Use: Cigarettes How many cigarettes do you smoke per day?: 10 Years Smokin Do you use smokeless tobacco?: Yes - Vape Smoking Cessation Referral:: Yes Individual Education/Counseling:: Yes Education Schedule Given:: Yes Gave Education Materials For:: Tobacco Triggers, Pulmonary Disease, Risk Factors, Breathing Techniques, Medical Compliance, Pulmonary A&P, Exacerbation Signs & Symptoms, Stress & Relaxation - Exacerbation Mgmt & Airway Clearance Problems:: No home O2 - Medication Interventions/plans: Instruct on medication effects & side effects, Instruct importance of taking meds as ordered & assist problem solving Medication Goals: Adherence to prescribed medications, Correct technique/timing & care of MDI, DPI, nebulizer, and spacer. Does pt report taking home meds as prescribed?: Yes Medications: Yes MDI, Yes NEB Reviewed prescribed medications:: Purpose, Schedule, Side effects, Importance of compliance - Diabetes Diabetes:: No Core Components - 30 DAYS Core Components - 60 DAYS Core Components - 90 DAYS Core Components - Final Patient Health Questionnaire Initial Assessment 1. Little interest or pleasure in doing things: Several days 2. Feeling down, depressed, or hopeless: Several days 3. Trouble falling or staying asleep, or sleeping too much: More than half the days 4. Feeling tired or having little energy: Nearly every day 5. Poor appetite or overeating: More than half the days 6. Feeling bad about yourself -- or that you are a failure or have let yourself or your family down: More than half the days 7. Trouble concentrating on things, such as reading the newspaper or watching television: Nearly every day 8. Moving or speaking so slowly that other people could have noticed. Or the opposite - being so fidgety or restless that you have been moving around a lot more than usual: Several days 9. Thoughts that you would be better off , or of hurting yourself in some way: Not at all Total Score: 15 Knowledge Questionaire (BCKQ) - Information Information: [place] COPD Knowledge Questionnaire (BCKQ) This questionnaire is designed to find out what you know about your lung problem. It should be completed without help form anyone else. This usually takes between 10 and 20 minutes. Your answers will help us to find out what information you need to help you to understand and manage your lung condition. Morgan the [facility] which you think is the correct answer. - Questions b. COPD can only be confirmed by breathing tests: Don't know c. In COPD ther is usually gradual worsening over time: True d. In COPD oxygen levels in the blood are always low: False e. COPD is usually in people less than 40 years old: True Vandana than 80% of COPD cases are caused by cigarette smoking: True b. COPD can be caused by occupational dust exposure: Don't know c. Longstanding asthma can develop into COPD: Don't know d. COPD is commonly an inherited disease: True e. Women are less vunerable to the effects of cigarette than men: False a. Swelling of the ankles is common in COPD:: Don't know b. Fatigue [tiredness] is common in COPD: True c. Wheezing is common in COPD: True d. Crushing chest pain is common in COPD: True e. Rapid weight loss is common in COPD: Don't know a. Severe breathlessness prevents travel by air: True b. Breathlessness can be worsened by eating large meals: True c. Breathlessness means that your oxygen levels are low: False d. Breathlessness is a normal response to exercise: Don't know e. Breathlessness is primarily caused by a narrowing of the bronchial tubes: True a. Coughing phlegm is a common symptom in COPD: True b. Clearing phlegm is more difficult if you get dehydrated: True c. Bronchodilator inhalers can help clear phlegm: Don't know d. Phlegm causes harm if swallowed: Don't know e. Clearing phlegm can be assisted by breathing exercises: Don't know a. Chest infections often cause coughing of blood: False b. Chest infection phlegm usually becomes coloured (ylw/grn): True cExerbations (episodes of worsening) can occur in the absence of chest infection: True d. Chest infections are always accompanied by a high temperature: False e. Steroid tablets should be taken whenever there is an exacerbation: False aWalking excercises better than breathing to improve fitness: Don't know b. Exercise should be avoided as it strains the lungs: False c. Exercise can help maintain your bone density: Don't know d. Exercise helps relieve depression: True e. Exercise should be stopped if it makes you breathless: True a. Stopping smoking will reduce the risk of heart disease: True b. Stopping smoking will slow down further lung damage: True c. Stopping smoking is pointless as the damage is done: False d.Stopping smoking usually results in improved lung function: True eNicotine replacement therapy only available on prescription: False a. A flu jab is recommended every year: True b. You can get flu from having a flu jab: Don't know c. You can only have a flu jab if you are 65 or over: False d. A pneumonia jab protects against all forms of pneumonia: False e.You can have a pneumonia jab and a flu job on the same day: Don't know a. Bronchodilators act quickly (within 10 minutes): Don't know b. Both short & long acting bronchodilators can be taken on the same day: True c. Spacers (volumatic,nebuhaler,serochamber)should be dried w/atowel after washing: False d. A spacer device increases the medication to the lungs: True e. Tremor may be a side effect of bronchodilators: True a. To be effective, the course should last at least 10 days: Don't know b. Excessive use of antibiotics can cause resistant bacteria (germs): True c. Antibiotics will clear all chest infections: Don't know d. Antibiotic treatment is necessary for an exacerbation (worsening) however mild: False e. Seek advice if antibiotics cause severe diarrhoea: True a. Steroid tablets help strengthen muscles: False b. Steroid tablets should be avoided if there is a chest infection: Don't know c. The risk of long-term side effects due to steroids is less w/short courses then w/continous treatment: True dIndigestion is common side effect from using steroid tablet: Don't know e. Steroid tablets can increase your appetite: True a. Inhaled steroids should be stopped if you are given steroid tablets: False bSteroid inhalers can be used for rapid relief breathlessnes: True c. Spacer devices reduce the risk of getting thrush in the mouth: True d.Steroid inhaler should be taken before your bronchodilator: False e. Inhaled steroids improve lung function in COPD: True COPD Assessment Test [CAT] - Questions Never cough = 0, Cough all the time = 5: 1 No phlegm = 0, Chest full of phlegm = 5: 1 No chest tightness = 0, Chest very tight = 5: 3 No breathless w/exertion = 0, Very breathless w/exertion = 5: 5 No limitations w/activity = 0, Very limited w/activity = 5: 5 Confident leaving home = 0, Not at all confident = 5: 5 Sleep soundly = 0, Don't sleep soundly = 5: 4 Lots of energy = 0, No energy at all = 5: 5 Total CAT score:: 29 Self-Efficacy Initial Assessment We would like to know how confident you are in doing certain activities. Please select your confidence level for:: Select your confidence level for the following using the scale 1-10 where 1 is not at all confident and 10 is totally confident. Your score is the average of all 6 responses. Fatigue: How confident are you that you can keep the fatigue caused by your disease from interfering with the things you want to do? Select Number: 3 Physical Discomfort or Pain: How confident are you that you can keep the physical discomfort or pain of your disease from interfering with the things you want to do? Select Number: 2 Emotional Distress: How confident are you that you can keep the emotional distress caused by your disease from interfering with the things you want to do? Select Number: 3 Other Symptoms or Health Problems: How confident are you that you can keep other symptoms or health problems from interfering with the things you want to do? Select Number: 3 Different Tasks and Activities: How confident are you that you can do the different tasks and activities needed to manage your health condition so as to reduce your need to see a doctor? Select Number: 3 Medication: How confident are you that you can do things other than just taking medication to reduce how much your illness affects your everyday life? Select Number: 3 Total Score:: 2 Nutrition Survey - Nutrition Survey Initial Have you lost >10 lbs over the past 2 months without trying?: No Are you following a special diet at home for diabetes, low fat, or low salt?: No Are you interested in meeting with a dietitian for help understanding your diet?: No Do you eat less than 3 meals a day?: Yes Do you eat fatty meats (boss, sausage, ribs, etc), fried foods, desserts, large amounts of salad dressings, margarine, butter, or cheese most days?: Yes Do you have food allergies? [Enter types in comment field]: No Do you eat in restaurants more than 3 times a week?: No Do you season food with salt, seasoning salt, or garlic salt?: Yes Do you used canned, boxed, frozen meals, or soups, seasoning packets?: Yes Total Score:: 4
[2022-05-13 13:28] VITALS: BP 126/78; PULSE 110; RESP 18; TEMP 37; O2SAT 96; BMI 25.9
[2022-05-13 14:00] VITALS: BP 126/78; BP 128/78; BMI 25.9
== END | disposition home or self-care (01) ==
LOC: PR 12:48
PROVIDERS: PCP Internal Medicine
DX: J44.9 Chronic obstructive pulmonary disease, unspecified (principal)

== ENCOUNTER 2022-06-03 13:00 | Outpatient (RCR) | payer MEDICAID, SELFPAY | END 2022-06-05 23:59 | LOC: PR 13:00 | PROVIDERS: PCP Internal Medicine | DX: J44.9 Chronic obstructive pulmonary disease, unspecified (principal) | CPT/HCPCS: 97150; 94626 ==

== ENCOUNTER 2022-07-06 13:00 | Outpatient (RCR) | payer MEDICAID, SELFPAY ==
--- NOTE | 2022-06-17 07:04 | PR.ITP_ITS ---
Exercise - 30-Day Assessment - Visit Date of Eval: 06/17/22 Session Number:: 12 - Physician Prescribed Exercise Modalities: Treadmill, Biodyne - Replaced w/[place] Airdyne, NuStep Intensity: 60-80% of age predicted maximum heart rate reserve Aerobic Exercise [30-60 min 3-7x/week]:: Progressing Milady-13 Current METSs:: 4.0 Target HR:: 139 - THRR 123-139 Current RPD:: 2-3 Maximum Exercise HR:: 144 Resting Blood Pressure: 130/70 - BPs have ranged > 130/80 @ rest lately EKG Type: Sinus rythm to sinus tachycardia without ectopy Current Minutes of Exercise: 59 - Home Exercise Home Exercise:: Yes Mode: Walking Nutrition/Wt Mgmt - 30-Day - Visit Date of Eval: 06/17/22 Session Number:: 12 - Weight Management Height: 5 ft 4 in Weight:: 163 lb - No weight change this 30-days BMI: 27.9 Weight Goals Progress:: Not progressing Psychosocial - 30-Day - Visit Date of Eval: 06/17/22 Session Number:: 12 - Psychosocial Test Tool Used:: PHQ-9 Questionnaire - Referral to Behavioral Health PS - Interventions: Yes Attend Stress Management Classes, No Referral to Behavioral Health if PHQ-9 score >9:, No Referral to [facility], No Referral to Physician if PHQ-9 if score is 5-9: - Plan Interventions/Plan:: Assess stressors,coping strategies & signs of derpression on admission, Instruct/assist pt to develop coping & personal stress Mgt strategies, Instruct patient to recognize signs & symptoms of depression, Instruct patient to recog Oxygen & Oxygen Titration 30D - Visit Date of Eval: 06/17/22 Session Number:: 12 - Reassessment Reassessment- 30 Days: Demonstrate knowledge of O2 Rx at rest & w/exercise Breath Sounds:: Clear SpO2:: 96 - Range 94-96 at rest Core Components - Initial Core Components - 30 DAYS - Visit Date of Eval: 06/17/22 Session Number:: 12 - Hypertension Hypertension Diagnosis:: Hypertension ICD-10 I10 Resting Blood Pressure:: 143/88 [employer] Hypertension Guidelines: [employer] Hypertension Guidelines. Normal BP Less than 120/80. Elevated BP 120/80. Hypertension Stage 1: BP 130-139/80-89. Hypertesnion Stage 2: BP 140 or higher/90 or higher. Hypertension Crisis: BP higher than 180/120 Peak Exercise Blood Pressure:: 144/80 Change in medication: No Outcomes/Goals: Able to verbalize/achieve optimal blood pressure <130/80, Incorporates diet changes & exercise for blood pressure control by DC Interventions/plan: Instruct on optimal blood pressure, hypertension & medications, Instruct on effects of sodium, alcohol, stress, exercise &hypertension 30 day Reassessments:: Progressing Core Components - 60 DAYS Core Components - 90 DAYS Core Components - Final Patient Health Questionnaire 30-Day Re-eval Assessment 1. Little interest or pleasure in doing things: Not at all 2. Feeling down, depressed, or hopeless: Not at all 4. Feeling tired or having little energy: Several days 5. Poor appetite or overeating: More than half the days 6. Feeling bad about yourself -- or that you are a failure or have let yourself or your family down: Several days 7. Trouble concentrating on things, such as reading the newspaper or watching television: Several days 8. Moving or speaking so slowly that other people could have noticed. Or the opposite - being so fidgety or restless that you have been moving around a lot more than usual: Not at all 9. Thoughts that you would be better off , or of hurting yourself in some way: Not at all How difficult have these problems made it for you to do your work, take care of things at home, or get along with other people?: Somewhat difficult Total Score: 5 Knowledge Questionaire (BCKQ) - Information Information: [place] COPD Knowledge Questionnaire (BCKQ) This questionnaire is designed to find out what you know about your lung problem. It should be completed without help form anyone else. This usually takes between 10 and 20 minutes. Your answers will help us to find out what information you need to help you to understand and manage your lung condition. Morgan the [place] which you think is the correct answer. Self-Efficacy 30-Day Re-eval Assessment We would like to know how confident you are in doing certain activities. Please select your confidence level for:: Select your confidence level for the following using the scale 1-10 where 1 is not at all confident and 10 is totally confident. Your score is the average of all 6 responses. Fatigue: How confident are you that you can keep the fatigue caused by your disease from interfering with the things you want to do? Select Number: 7 Physical Discomfort or Pain: How confident are you that you can keep the physical discomfort or pain of your disease from interfering with the things you want to do? Select Number: 8 Emotional Distress: How confident are you that you can keep the emotional distress caused by your disease from interfering with the things you want to do? Select Number: 5 Other Symptoms or Health Problems: How confident are you that you can keep other symptoms or health problems from interfering with the things you want to do? Select Number: 7 Different Tasks and Activities: How confident are you that you can do the different tasks and activities needed to manage your health condition so as to reduce your need to see a doctor? Select Number: 7 Medication: How confident are you that you can do things other than just taking medication to reduce how much your illness affects your everyday life? Select Number: 8 Total Score:: 7 Nutrition Survey
[2022-06-17 07:14] VITALS: BP 130/70; BP 143/88; BP 144/80; O2SAT 96; BMI 27.9
== END 2022-07-06 23:59 ==
LOC: PR 13:00
PROVIDERS: PCP Internal Medicine
DX: J44.9 Chronic obstructive pulmonary disease, unspecified (principal)
CPT/HCPCS: 97150; 94626

== ENCOUNTER 2022-08-03 13:00 | Outpatient (RCR) | payer MEDICAID, SELFPAY ==
[2022-06-17 07:14] VITALS: BMI 27.9
[2022-07-07 00:38] VITALS: BP 130/70; BP 143/88; BP 144/80
--- NOTE | 2022-07-13 08:09 | PCM.PR.TP ---
Exercise - 60-Day Assessment - Visit Date of Eval: 07/13/22 Session Number:: 23 - Physician Prescribed Exercise Modalities: Treadmill, Biodyne, NuStep Intensity: 60-80% of age predicted maximum heart rate reserve Aerobic Exercise [30-60 min 3-7x/week]:: Progressing Milady-13 Current METSs: 4.0 Target HR:: 139 - THRR 123-139 Current RPD:: 12-13 Maximum Exercise HR:: 134 Resting Blood Pressure: 120/58 Maximum Exercise Blood Pressure: 134/68 Minimum SpO2 with exercise: 91 EKG Type: Sinus rhythm to sinus tachycardia with rare PAC and PVC - Home Exercise Home Exercise:: Yes Mode: Walking Frequency:: Daily Nutrition/Wt Mgmt - 60-Day - Visit Date of Eval: 07/13/22 Session Number:: 23 - Weight Management Height: 5 ft 4 in Weight:: 166 lb BMI: 28.5 Weight Goals Progress:: Progressing Psychosocial - 60-Day - Visit Date of Eval: 07/13/22 Session Number:: 23 - Psychosocial Test Tool Used:: PHQ-9 Questionnaire Referred to MD for counseling:: No - Referral to Behavioral Health PS - Interventions: Yes Attend Stress Management Classes, No Referral to Behavioral Health if PHQ-9 score >9:, No Referral to [facility], No Referral to Physician if PHQ-9 if score is 5-9: - Plan Interventions/Plan:: Assess stressors,coping strategies & signs of derpression on admission, Instruct/assist pt to develop coping & personal stress Mgt strategies, Instruct patient to recognize signs & symptoms of depression, Instruct patient to recog Core Components - Initial Core Components - 30 DAYS Core Components - 60 DAYS - Visit Date of Eval: 07/13/22 Session Number:: 23 - Hypertension Hypertension Diagnosis:: Hypertension ICD-10 I10 Resting Blood Pressure:: 120/64 [place] [employer] Hypertension Guidelines: [place] [employer] Hypertension Guidelines. Normal BP Less than 120/80. Elevated BP 120/80. Hypertension Stage 1: BP 130-139/80-89. Hypertesnion Stage 2: BP 140 or higher/90 or higher. Hypertension Crisis: BP higher than 180/120 Peak Exercise Blood Pressure:: 132/76 Change in medication: No Outcomes/Goals: Able to verbalize/achieve optimal blood pressure <130/80, Incorporates diet changes & exercise for blood pressure control by DC Interventions/plan: Instruct on optimal blood pressure, hypertension & medications, Instruct on effects of sodium, alcohol, stress, exercise &hypertension 60 day Reassessments:: Met - Exacerbation Mgmt & Airway Clearance Reassessment: Demonstrates knowledge of O2 Rx with exercise - Medication Medication list reviewed:: Yes Taking medications 100% of the time:: Met Medication reassessment: Yes Pt demonstrates correct technique timing for MDI, Yes Pt demonstrates correct technique timing for DPI, Yes Pt demonstrates correct technique timing for NEB, Yes Pt demonstrates correct technique timing for spacer 60-day Reassessments:: Met - Diabetes Diabetes:: No - Heart Failure Documenting weight saroj: No Core Components - 90 DAYS Core Components - Final Patient Health Questionnaire 60-Day Re-eval Assessment 1. Little interest or pleasure in doing things: Not at all 2. Feeling down, depressed, or hopeless: Not at all 3. Trouble falling or staying asleep, or sleeping too much: Several days 4. Feeling tired or having little energy: Several days 5. Poor appetite or overeating: Several days 6. Feeling bad about yourself -- or that you are a failure or have let yourself or your family down: Not at all 7. Trouble concentrating on things, such as reading the newspaper or watching television: Not at all 8. Moving or speaking so slowly that other people could have noticed. Or the opposite - being so fidgety or restless that you have been moving around a lot more than usual: Not at all 9. Thoughts that you would be better off , or of hurting yourself in some way: Not at all How difficult have these problems made it for you to do your work, take care of things at home, or get along with other people?: Not difficult at all Total Score: 3 Knowledge Questionaire (BCKQ) - Information Information: [place] COPD Knowledge Questionnaire (BCKQ) This questionnaire is designed to find out what you know about your lung problem. It should be completed without help form anyone else. This usually takes between 10 and 20 minutes. Your answers will help us to find out what information you need to help you to understand and manage your lung condition. Morgan the lummi which you think is the correct answer. Self-Efficacy 60-Day Re-eval Assessment We would like to know how confident you are in doing certain activities. Please select your confidence level for:: Select your confidence level for the following using the scale 1-10 where 1 is not at all confident and 10 is totally confident. Your score is the average of all 6 responses. Fatigue: How confident are you that you can keep the fatigue caused by your disease from interfering with the things you want to do? Select Number: 7 Physical Discomfort or Pain: How confident are you that you can keep the physical discomfort or pain of your disease from interfering with the things you want to do? Select Number: 7 Emotional Distress: How confident are you that you can keep the emotional distress caused by your disease from interfering with the things you want to do? Select Number: 7 Other Symptoms or Health Problems: How confident are you that you can keep other symptoms or health problems from interfering with the things you want to do? Select Number: 7 Different Tasks and Activities: How confident are you that you can do the different tasks and activities needed to manage your health condition so as to reduce your need to see a doctor? Select Number: 8 Medication: How confident are you that you can do things other than just taking medication to reduce how much your illness affects your everyday life? Select Number: 8 Total Score:: 7 Nutrition Survey
[2022-07-13 08:15] VITALS: BP 120/58; BP 120/64; BP 132/76; O2SAT 91; BMI 28.5
== END 2022-08-05 23:59 ==
LOC: PR 13:00
PROVIDERS: PCP Internal Medicine
DX: J44.9 Chronic obstructive pulmonary disease, unspecified (principal)
CPT/HCPCS: 97150; 94626

== ENCOUNTER 2022-08-08 07:04 | Outpatient (RCR) | payer MEDICAID, SELFPAY ==
[2022-07-13 08:15] VITALS: BMI 28.5
[2022-08-06 01:24] VITALS: BP 120/58; BP 120/64; BP 132/76
--- NOTE | 2022-08-10 10:33 | PCM.PR.TP ---
Exercise - Initial Assessment Visit Session Number:: 25 Physician Prescribed Exercise Current METSs:: 5 Target HR:: 123 Target RPE 12-16:: 12-14 Maximum Exercise HR:: 138 Resting Blood Pressure: 114/68 Maximum Exercise Blood Pressure: 134/48 Minimum SpO2 with exercise: 91 EKG Type: NSR to ST Nutrition/Wt Mgmt - Initial Visit Session Number:: 25 Weight Management Admit Height:: 5 ft 4 in Admit Weight:: 168 lb Admit BMI:: 28.8 Nutrition/Wt Mgmt - 30-Day Visit Date of Eval: 08/10/22 Session Number:: 25 Weight Management Height: 5 ft 4 in Weight:: 168 lb BMI: 28.8 Nutrition/Wt Mgmt - 60-Day Visit Session Number:: 25 Weight Management Height: 5 ft 4 in Weight:: 168 lb BMI: 28.8 Weight Goals Progress:: Goal met Nutrition/Wt Mgmt - 90-Day Visit Date of Eval: 08/10/22 Session Number:: 25 Weight Management Height: 5 ft 4 in Weight:: 168 lb BMI: 28.8 Weight Goals Progress:: Goal met Nutrition/Wt Mgmt - Final Visit Session Number:: 25 Weight Management Height: 5 ft 4 in Weight:: 168 lb BMI: 28.8 Psychosocial - Initial Assess Visit Session Number:: 25 Psychosocial - 30-Day Visit Date of Eval: 08/10/22 Session Number:: 25 Psychosocial - 60-Day Visit Session Number:: 25 Psychosocial - 90-Day Visit Date of Eval: 08/10/22 Session Number:: 25 Psychosocial - Final Assess Visit Session Number:: 25 Oxygen & Oxygen Titration Init Visit Session Number:: 25 Initial Assessment SpO2:: 91 Oxygen & Oxygen Titration 30D Visit Date of Eval: 08/10/22 Session Number:: 25 Reassessment SpO2:: 91 Oxygen & Oxygen Titration 60D Visit Date of Eval: 08/10/22 Session Number:: 25 Reassessment SpO2:: 91 Oxygen & Oxygen Titration 90D Visit Date of Eval: 08/10/22 Session Number:: 25 Reassessment SpO2:: 91 Oxygen & Oxygen Titration ANÍBAL Visit Date of Eval: 08/10/22 Session Number:: 25 Reassessment SpO2:: 91 Core Components - Initial Visit Session Number:: 25 Hypertension Hypertension Diagnosis:: Hypertension ICD-10 I10 BP: 114/68 [employer] Hypertension Guidelines Blood Pressure: 134/48 Core Components - 30 DAYS Visit Date of Eval: 08/10/22 Session Number:: 25 Hypertension Hypertension Diagnosis:: Hypertension ICD-10 I10 Resting Blood Pressure:: 114/68 [employer] Hypertension Guidelines Peak Exercise Blood Pressure:: 134/48 30 day Reassessments:: Met Core Components - 60 DAYS Visit Session Number:: 25 Hypertension Hypertension Diagnosis:: Hypertension ICD-10 I10 Resting Blood Pressure:: 114/68 [employer] Hypertension Guidelines Peak Exercise Blood Pressure:: 134/48 60 day Reassessments:: Met Core Components - 90 DAYS Visit Date of Eval: 08/10/22 Session Number:: 25 Hypertension Hypertension Diagnosis:: Hypertension ICD-10 I10 Resting Blood Pressure:: 114/68 [employer] Hypertension Guidelines Peak Exercise Blood Pressure:: 134/48 90 day Reassessments:: Met Core Components - Final Visit Session Number:: 25 Hypertension Hypertension Diagnosis:: Hypertension ICD-10 I10 Resting Blood Pressure:: 114/68 [employer] Hypertension Guidelines Peak Exercise Blood Pressure:: 134/48 Knowledge Questionaire (BCKQ) Information Information: [place] COPD Knowledge Questionnaire (BCKQ) This questionnaire is designed to find out what you know about your lung problem. It should be completed without help form anyone else. This usually takes between 10 and 20 minutes. Your answers will help us to find out what information you need to help you to understand and manage your lung condition. Morgan the [place] which you think is the correct answer. Nutrition Survey Nutrition Survey Instructions Scoring Instructions
[2022-08-10 10:44] VITALS: BP 114/68; BP 134/48; O2SAT 91; BMI 28.8
== END 2022-09-05 23:59 ==
LOC: PR 07:04
PROVIDERS: PCP Internal Medicine
DX: J44.9 Chronic obstructive pulmonary disease, unspecified (principal)
CPT/HCPCS: 97150; 94626

== ENCOUNTER 2024-12-10 07:41 | Observation (INO) | payer MEDICARE, MEDICAID, SELFPAY ==
[2022-08-10 10:44] VITALS: BMI 28.8
[2024-12-10] VITALS (7 sets, daily range): BP systolic 104–152; BP diastolic 65–78; PULSE 78–111; RESP 16–18; TEMP 36.5–37.1; O2SAT 95–100; BMI 28.8; BMI 28.5
--- NOTE | 2024-12-10 07:55 | CT_ITS ---
PROCEDURE: ABDOMEN/PELVIS WITHOUT CONT 12/10/2024 REASON FOR EXAM: RIGHT FLANK PAIN 4 day history. TECHNIQUE: Procedure Code: [id number] Modality: CT Procedure: ABDOMEN/PELVIS WITHOUT CONT Noncontrast technique limits evaluation of the abdominal and pelvic viscera. Coronal and Sagittal reconstruction series were provided. One or more dose reduction techniques were used (e.g., Automated exposure control, adjustment of the mA and/or kV according to patient size, use of iterative reconstruction technique). RADIATION DOSE SUMMARY: CTDlvol: 8.09 mGy DLP: 398.23 mGycm COMPARISON: None FINDINGS: Lung bases: The lung bases are clear. Small hiatal hernia. Coronary artery calcification. Liver: Normal size. No obvious mass. Gallbladder: Unremarkable Spleen: Normal size. Pancreas: Normal size. No surrounding inflammation. Adrenals: Unremarkable Kidneys: No evidence of hydronephrosis. No evidence of ureteral obstruction. There is evidence of calcification of left intrarenal arterial branches. Bladder: Unremarkable. Reproductive Organs: Unremarkable Bowel: Unremarkable Appendix: Lymph nodes: Unremarkable. Vasculature: Mild diffuse atherosclerotic calcifications of the abdominal aorta and its major visceral branches are noted. Peritoneum / Retroperitoneum: Unremarkable Bones: Degenerative changes at the L4-L5 and L5-S1 levels. CT/Abdomen/Pelvis without Cont IMPRESSION: No evidence of ureteral obstruction. Reading Location: [id number]
--- NOTE | 2024-12-10 07:56 | ED.VIS.BACK ---
HPI History of Present Illness Chief Complaint: Back Detail of Chief Complaint: Back pain Informant: patient Narrative Narrative: Patient presents with back pain that started 4 days ago. Patient states that came on and has been continuous since that time. It waxes and wanes in intensity. No radiation of the pain. Does not go down her legs. She denies paresthesias. Denies injury to her back. Denies urinary symptoms. Denies hematuria. She is on Eliquis for history of PE. She has history of COPD. She denies abdominal pain. [facility] Medical History (Updated 12/10/24 @ 11:[address] Trevor Chang, DO) H/O MTHFR mutation (~2021) Pulmonary embolism Pulmonary nodules Mixed hyperlipidemia Atherosclerotic heart disease of [place] coronary artery without angina pectoris Takotsubo syndrome Abnormal electrocardiogram Abnormal cardiac enzyme level Anxiety and depression GERD (gastroesophageal reflux disease) Asthma exacerbation COPD with asthma COPD exacerbation PNA (pneumonia) Sepsis Home Medications ?Medication ?Instructions ?Recorded ?Last Taken ?Type montelukast 10 mg tablet 10 mg PO DAILY COPD 02/05/18 02/06/18 17:00 History albuterol sulfate 90 mcg/actuation 2 puff inhalation Q4H PRN PRN Sob 02/10/18 Unknown Rx aerosol inhaler &/Or Wheezing ##1 aspirin 81 mg chewable tablet 81 mg PO DAILY@0800 ##30 02/10/18 Unknown Rx alprazolam 0.5 mg tablet 0.5 mg PO QHS PRN Anxiety 02/26/18 Unknown History cetirizine 10 mg tablet 10 mg PO DAILY 04/12/18 Unknown History ipratropium 0.5 mg-albuterol 3 mg 3 ml inhalation Q4H.RT PRN 01/10/19 Unknown History (2.5 mg base)/3 mL nebulization Shortness Of Breath soln apixaban 5 mg tablet (Eliquis) 5 mg PO BID 01/06/21 Unknown History citalopram 20 mg tablet 30 mg PO DAILY ANXIETY 01/07/21 Unknown History budesonide-formoterol HFA 160 2 puff inhalation BID 07/19/21 Unknown History mcg-4.5 mcg/actuation aerosol inhaler furosemide 40 mg tablet (Lasix) 40 mg PO .PRN PRN edema #30 tabs 07/19/21 Unknown Rx omeprazole 40 mg capsule,delayed 40 mg PO DAILY 07/19/21 Unknown History release varenicline tartrate 1 mg tablet tablet PO 07/19/21 Unknown History amlodipine 10 mg tablet 10 mg PO DAILY 05/13/22 Unknown History cyclobenzaprine 5 mg tablet 10 mg PO TID PRN Nasal Congestion 05/13/22 Unknown History triamcinolone acetonide 1 spray BID 05/13/22 Unknown History atorvastatin 40 mg tablet 40 mg PO QHS #90 tabs 09/08/22 Unknown Rx Allergy/AdvReac Type Severity Reaction Status Date / Time bupropion HCl (From AdvReac Nausea/Vom/ Verified 12/10/24 07:44 Wellbutrin) Diarrhea hydrocodone bitartrate (From AdvReac Nausea/Vom/ Verified 12/10/24 07:44 Vicodin) Diarrhea tetracycline AdvReac Nausea/Vom/ Verified 12/10/24 07:44 Diarrhea Family History Other Diabetes Heart disease Surgical History History of left heart catheterization (LHC) (~02/09/18) Status post right foot surgery History of tonsillectomy History of tubal ligation Social History Smoking Status: Current every day smoker tobacco type: cigarettes quit status: considering quitting alcohol intake: never substance use type: does not use caffeine: Yes Type: carbonated beverages Number of servings: 6 ROS ROS ED Review of Systems ROS Unobtainable: other Constitutional Constitutional ED: Reports lethargy; Denies chills, fever(s), sweats or weight loss Eyes Eyes: Denies blurry vision, change in vision or diplopia ENT ENT ED: Denies rhinorrhea or sore throat Cardiovascular Cardiovascular: Denies chest pain, orthopnea or racing heartbeat Respiratory/Chest Respiratory/Chest: Denies cough, dyspnea, dyspnea on exertion, orthopnea or sputum Gastrointestinal Gastrointestinal: Denies abdominal pain, diarrhea, nausea or vomiting Genitourinary Genitourinary ED: Denies dysuria, hematuria or urinary frequency Musculoskeletal Musculoskeletal: Reports back pain; Denies arthralgias, myalgias or neck pain Integumentary Denies abscess, Abrasions or rash Neurologic Neurologic: Denies headache(s) or weakness Psychiatric Psychiatric: Denies anxiety, depression or suicidal thoughts Endocrine Endocrinology: Denies polydipsia, polyphagia or polyuria Hematologic/Lymphatic Hematologic/Lymphatic: Denies easy bleeding, easy bruising or lymphadenopathy Allergic/Immunologic Allergic/Immunologic ED: Denies mouth swelling, tongue swelling or urticaria EXAM Physical Exam Const Vital Signs: 12/10/24 07:43 12/10/24 10:56 Temperature 97.8 F 98.7 F Temperature Source Oral Pulse Rate 111 H 78 Respiratory Rate 18 16 Blood Pressure 137/66 H 141/78 H Blood Pressure Mean 89 99 Pulse Ox 100 99 Oxygen Delivery Method Nasal Cannula Oxygen Flow Rate (L/min) 2 Positive well nourished and well developed General Appearance ED: well developed and NAD HEENT Reports TM's clear and moist mucous membranes normocephalic and atraumatic; Negative for trauma or tenderness Tympanic Membrane ED: Yes TM's clear Eyes PERRL and EOMs intact bilaterally General Eye ED: Negative for pale conjunctiva or scleral icterus Neck no lymphadenopathy, supple and no JVD General: Negative for tenderness Chest Wall inspection of chest normal and palpation of chest normal Chest: Negative for tenderness Resp normal respiratory effort and clear to auscultation bilaterally Effort and Inspection: Negative for respiratory distress or pain with movement Auscultation: Negative for rhonchi, wheezes or diminished lung sounds Cardio regular rate, regular rhythm, S1 normal heart sound, S2 normal heart sound and no murmurs Peripheral Pulses: pulses 2+ throughout GI normal to inspection, nondistended, normoactive bowel sounds, soft to palpation, non-tender, non-distended and no masses Back/Spine no thoracic nor lumbar tenderness; Negative for no CVA tenderness Back/Spine Narrative: Positive CVA tenderness on the right. She also has tenderness palpation over the right lumbar paraspinal musculature. Negative straight leg raises. Deep tendon reflexes plus 2 out of 4 bilaterally at the patella and Achilles. She has normal L5 extension. Extremity normal to inspection General Extremety ED: Negative for edema General Extremity: Negative for edema Neuro oriented x3, CN's II-XII intact bilaterally, no sensory deficits noted and gait normal Sensorium / Orientation: awake, alert, oriented to person, oriented to place and oriented to time Motor Exam: strength 5/5 throughout and strength abnormal Psych mental status grossly normal Skin no rashes or lesions noted and no wounds MDM MDM MDM Narrative Medical decision making narrative: Patient presents with right-sided back pain without trauma. She was medicated with morphine and Zofran and Toradol and had initial relief but then the pain came back. She had to be medicated again with Dilaudid. She continued complaint of nausea and was given Reglan and then a second dose of Zofran. CBC with differential shows a white count of 9.2 with hemoglobin 13.4 and platelet count of 337. Chemistries unremarkable. LFTs unremarkable. Urinalysis was normal. CT scan of the abdomen pelvis was unremarkable. This point etiology of her back pain unclear. She continues to feel poorly and continues to have pain and nausea. Discussed with hospitalist to evaluate patient for admission for intractable back pain and nausea. Pain is reproducible and suspect may be musculoskeletal in etiology. There was no rash to indicate shingles. Lab Data Attestation: I reviewed the patient's lab results. Labs: Laboratory Results - last 24 hr 12/10/24 12/10/24 07:22 08:15 WBC 9.2 RBC 4.79 Hgb 13.4 Hct 40.9 MCV 85.4 MCH 28.0 MCHC 32.8 RDW Std Deviation 42.2 RDW Coeff of Oswaldo 13.5 Plt Count 337 MPV 9.2 Immature Gran % (Auto) 0.300 Neut % (Auto) 74.6 H Lymph % (Auto) 17.9 L [place] % (Auto) 5.4 Eos % (Auto) 1.5 Baso % (Auto) 0.3 Absolute Neuts (auto) 6.8 Absolute Lymphs (auto) 1.64 Nucleated RBC % 0 Sodium 134 Potassium 3.9 Chloride 97 L Carbon Dioxide 26.5 Anion Gap 11 BUN 12 Creatinine 0.94 Estim Creat Clear Calc 65.19 Est GFR (MDRD) Non-Af 70 BUN/Creatinine Ratio 12.7 Glucose 119 H Calcium 9.6 Total Bilirubin 0.58 Direct Bilirubin 0.24 AST 20 ALT 18 Alkaline Phosphatase 194 H Total Protein 8.0 Albumin 4.7 Globulin 3.4 Lipase 28 Urine Color Yellow Urine Clarity Clear Urine pH 6.0 Ur Specific [place] 1.020 Urine Protein 30 H Urine Glucose (UA) Normal Urine Ketones Negative Urine Occult Blood Negative Urine Nitrite Negative Urine Bilirubin Negative Urine Urobilinogen Normal Ur Leukocyte Esterase 25 H Urine RBC 0 SEEN Urine WBC 0-5 SEEN Ur Squamous Epith Cells 0 SEEN Urine Bacteria 0 SEEN Urine Mucus 0 SEEN Radiography Diagnostic Testing: Clinical Impression(s) from Imaging Studies Abdomen/Pelvis CT 12/10/24 07:55 IMPRESSION: No evidence of ureteral obstruction. Reading Location: [id number] Discharge Plan Dx/Rx/DC Orders Clinical Impression: Intractable back pain, Nausea Disposition Disposition: Acute Care Hospital [facility] [place] [facility]
[2024-12-10] MEDS: Ketorolac 30 MG/ML Syringe IV (08:09)
[2024-12-10] MEDS: 0.9% Normal Saline (1000mL) 1,000 ML 150 ML IV ×2 (08:12→14:45)
[2024-12-10 08:22] LABS: Hematocrit 40.9 % (37-47); Hemoglobin 13.4 g/dL (12.0-15.0); Immature Granulocytes Count 0.030 X10^3/uL (0.0-0.0); Mean Corp Hgb Conc 32.8 g/dL (32-36); Mean Corpuscular Volume 85.4 fL (81-99); Mean Platelet Vol. 9.2 fl (6.2-12.0); NRBC Flagged by Analyzer 0 % (0-5); Platelet Count 337 K/mm3 (150-450); RBC Distribution Width CV 13.5 % (11.6-14.6); RBC Distribution Width SD 42.2 fl (35.1-43.9); Red Blood Count 4.79 M/mm3 (4.2-5.4); White Blood Count 9.2 K/mm3 (4.4-11.0)
[2024-12-10 08:47] LABS: Anion Gap 11 (5-15); BUN 12 mg/dL (4-19); BUN/Creat Ratio 12.7 RATIO (10-20); Calcium,Total 9.6 mg/dL (7.6-11.0); Carbon Dioxide 26.5 mmol/L (21.0-32.0); Chloride 97 mmol/L (98-108); Estimated Creatinine Clearance 65.19 ml/min (50-250); Glucose 119 mg/dL (70-99); Potassium 3.9 mmol/L (3.3-5.1)
[2024-12-10 09:27] LABS: Mucous, Urine 0 SEEN /hpf (<or=2+); Red Blood Cells-Urine 0 SEEN /hpf (0-5); Squamous Epithelial Cells - UA 0 SEEN /hpf (5-10)
[2024-12-10 09:45] LABS: Color, Urine Yellow (Yellow); Glucose, Dipstick Normal (Normal); Ketone-Dipstick Negative (Negative); Leukocyte Esterase-Dipstick 25 /ul (Negative); Nitrite-Dipstick Negative (Negative); Occult Blood-Urine Negative /ul (Negative); Protein-Dipstick 30 mg/dl (Negative); Specific Gravity, Urine 1.020 (1.002-1.030); Urine Bilirubin Dipstick Negative (Negative)
[2024-12-10 10:05] LABS: AST(SGOT) 20 U/L (<=31); Alanine Aminotransfer ALT/SGPT 18 U/L (<=34); Albumin, Serum 4.7 g/dL (3.5-5.0); Alkaline Phosphatase 194 U/L (35-104); Bilirubin, Direct 0.24 mg/dL (0.00-0.30); Globulin 3.4 g/dL (2.2-4.2); Lipase 28 U/L (13-75)
[2024-12-10] MEDS: HYDROmorphone 0.5 MG/0.5 ML SYRINGE IV (10:29)
--- NOTE | 2024-12-10 12:00 | PCM.HP.STD ---
HPI - General General Date of Admission: 12/10/24 Date of Service: 12/11/24 Chief Complaint: Back pain HPI Narrative ZULEYMA SARMIENTO, is a 59 F who presents with several days of back pain. No trauma. Patient described pain in her back. Was very intense to the point where led her to come to the emergency room. Was concerned the patient may have had kidney stones given the severity of her pain and so she underwent a urinalysis that was unremarkable and CT abdomen pelvis that showed no evidence of any ureteral obstruction. Patient received hydromorphone, ketorolac, morphine in the emergency room and is still having significant pain. Patient denies ever having pain like this before. [ ] [facility] Medical History Restless legs Anxiety Depression On home oxygen therapy COPD (chronic obstructive pulmonary disease) Hypertension H/O MTHFR mutation (~2021) Pulmonary embolism Pulmonary nodules Mixed hyperlipidemia Atherosclerotic heart disease of enterprise coronary artery without angina pectoris Takotsubo syndrome Abnormal electrocardiogram Abnormal cardiac enzyme level Anxiety and depression GERD (gastroesophageal reflux disease) Asthma exacerbation COPD with asthma COPD exacerbation PNA (pneumonia) Sepsis Home Medications ?Medication ?Instructions ?Recorded ?Last Taken ?Type montelukast 10 mg tablet 10 mg PO DAILY ASTHMA SOB 02/05/18 12/09/24 History aspirin 81 mg chewable tablet 81 mg PO DAILY@0800 ##30 02/10/18 12/09/24 Rx cetirizine 10 mg tablet 10 mg PO DAILY 04/12/18 12/09/24 History ipratropium 0.5 mg-albuterol 3 mg 3 ml inhalation Q4H.RT PRN 01/10/19 Unknown History (2.5 mg base)/3 mL nebulization Shortness Of Breath soln apixaban 5 mg tablet (Eliquis) 5 mg PO BID 01/06/21 12/09/24 History budesonide-formoterol HFA 160 2 puff inhalation BID 07/19/21 12/09/24 History mcg-4.5 mcg/actuation aerosol inhaler omeprazole 40 mg capsule,delayed 40 mg PO DAILY 07/19/21 12/09/24 History release amlodipine 10 mg tablet 10 mg PO DAILY 05/13/22 12/09/24 History atorvastatin 40 mg tablet 40 mg PO QHS #90 tabs 09/08/22 12/09/24 Rx albuterol sulfate 90 mcg/actuation 2 puff inhalation Q4H PRN Sob &/Or 12/10/24 12/08/24 History aerosol inhaler Wheezing arformoterol 15 mcg/2 mL solution 2 ml inhalation DAILY 12/10/24 12/09/24 History for nebulization citalopram 40 mg tablet (Celexa) 40 mg PO DAILY ANXIETY 12/10/24 12/09/24 History diclofenac potassium 25 mg tablet 25 mg PO DAILY PRN HIP PAIN 12/10/24 12/09/24 History furosemide 40 mg tablet (Lasix) 40 mg PO PRN edema 12/10/24 Unknown History tiotropium bromide 2.5 2 inh inhalation DAILY COPD 12/10/24 12/09/24 History mcg/actuation mist for inhalation (Spiriva Respimat) zolpidem 5 mg tablet (Ambien) 5 mg PO QHS SLEEP 12/10/24 12/09/24 History OXYGEN - Supplemental ([facility] 12/11/24 Unknown History INFORMATIONAL USE ONLY) Allergy/AdvReac Type Severity Reaction Status Date / Time bupropion HCl (From AdvReac Nausea/Vom/ Verified 12/10/24 07:44 Wellbutrin) Diarrhea hydrocodone bitartrate (From AdvReac Nausea/Vom/ Verified 12/10/24 07:44 Vicodin) Diarrhea tetracycline AdvReac Nausea/Vom/ Verified 12/10/24 07:44 Diarrhea Family History Other Diabetes Heart disease Surgical History History of left heart catheterization (LHC) (~02/09/18) Status post right foot surgery History of tonsillectomy History of tubal ligation Social History Smoking Status: Former smoker quit status: considering quitting alcohol intake: never substance use type: does not use caffeine: Yes Type: carbonated beverages Number of servings: 6 ROS ROS Narrative All review of systems were negative except as mentioned above in the history of present illness and the other review of systems. Vital Signs Vital Signs Vital Signs: 12/10/24 07:43 12/10/24 10:56 12/10/24 11:42 Temperature 36.6 C 37.1 C Temperature Source Oral Pulse Rate 111 H 78 78 Respiratory Rate 18 16 16 Respiratory Effort Respiratory Depth Respiratory Pattern Blood Pressure 137/66 H 141/78 H 104/78 Blood Pressure Mean 89 99 86 Blood Pressure Source Blood Pressure Position Blood Pressure Location Pulse Ox 100 99 Oxygen Delivery Method Nasal Cannula Oxygen Flow Rate (L/min) 2 12/10/24 13:29 12/10/24 14:54 12/10/24 14:54 Temperature 37.1 C 36.5 C L Temperature Source Oral Oral Pulse Rate 89 107 H Respiratory Rate 16 16 Respiratory Effort Normal Respiratory Depth Normal Respiratory Pattern Normal Blood Pressure 135/69 H 152/77 H Blood Pressure Mean 91 102 Blood Pressure Source Monitor Blood Pressure Position Semi-Fowlers Blood Pressure Location Right Arm Pulse Ox 95 Oxygen Delivery Method Room Air Nasal Cannula Nasal Cannula Oxygen Flow Rate (L/min) 2 2 12/10/24 20:25 12/10/24 21:00 12/11/24 02:00 Temperature 36.9 C Temperature Source Oral Pulse Rate 85 Respiratory Rate 16 16 16 Respiratory Effort Non-Labored Normal Respiratory Depth Normal Respiratory Pattern Normal Blood Pressure 124/65 H Blood Pressure Mean 84 Blood Pressure Source Monitor Blood Pressure Position Semi-Fowlers Blood Pressure Location Right Arm Pulse Ox 98 Oxygen Delivery Method Nasal Cannula Nasal Cannula Nasal Cannula Oxygen Flow Rate (L/min) 2 2 12/11/24 02:47 Temperature 36.8 C Temperature Source Oral Pulse Rate 85 Respiratory Rate 16 Respiratory Effort Respiratory Depth Respiratory Pattern Blood Pressure 137/74 H Blood Pressure Mean 95 Blood Pressure Source Monitor Blood Pressure Position Semi-Fowlers Blood Pressure Location Right Arm Pulse Ox 95 Oxygen Delivery Method Nasal Cannula Oxygen Flow Rate (L/min) 2 Weight Weight: 73.028 kg Body Mass Index (BMI) 28.5 Physical Exam Const alert and no apparent distress Constitutional Narrative: Musculoskeletal: Patient has reproducible right lower paraspinal tenderness with ropiness of the paraspinal muscles in lumbar region. Is grossly tender to palpation. Whereas the left side did not elicit any pain to palpation. HEENT normocephalic and head/scalp atraumatic Resp normal respiratory effort, no retractions, no use of accessory muscles and clear to auscultation bilaterally Cardio regular rate, regular rhythm, S1 normal heart sound and S2 normal heart sound GI normal to inspection, nondistended, normoactive bowel sounds, soft to palpation, non-tender and non-distended Results Lab / Micro Data Attestation: I reviewed the patient's lab results. 12/10/24 08:15 12/10/24 08:15 Labs: Laboratory Results - last 24 hr 12/10/24 07:22: Urine Color Yellow, Urine Clarity Clear, Urine pH 6.0, Ur Specific [place] 1.020, Urine Protein 30 H, Urine Glucose (UA) Normal, Urine Ketones Negative, Urine Occult Blood Negative, Urine Nitrite Negative, Urine Bilirubin Negative, Urine Urobilinogen Normal, Ur Leukocyte Esterase 25 H, Urine RBC 0 SEEN, Urine WBC 0-5 SEEN, Ur Squamous Epith Cells 0 SEEN, Urine Bacteria 0 SEEN, Urine Mucus 0 SEEN 12/10/24 08:15: WBC 9.2, RBC 4.79, Hgb 13.4, Hct 40.9, MCV 85.4, MCH 28.0, MCHC 32.8, RDW Std Deviation 42.2, RDW Coeff of Oswaldo 13.5, Plt Count 337, MPV 9.2, Immature Gran % (Auto) 0.300, Neut % (Auto) 74.6 H, Lymph % (Auto) 17.9 L, [place] % (Auto) 5.4, Eos % (Auto) 1.5, Baso % (Auto) 0.3, Absolute Neuts (auto) 6.8, Absolute Lymphs (auto) 1.64, Nucleated RBC % 0, Sodium 134, Potassium 3.9, Chloride 97 L, Carbon Dioxide 26.5, Anion Gap 11, BUN 12, Creatinine 0.94, Estim Creat Clear Calc 65.19, Est GFR (MDRD) Non-Af 70, BUN/Creatinine Ratio 12.7, Glucose 119 H, Calcium 9.6, Total Bilirubin 0.58, Direct Bilirubin 0.24, AST 20, ALT 18, Alkaline Phosphatase 194 H, Total Protein 8.0, Albumin 4.7, Globulin 3.4, Lipase 28 Imaging Radiology Impression Abdomen/Pelvis CT 12/10/24 07:55 IMPRESSION: No evidence of ureteral obstruction. Reading Location: [id number] Assessment & Plan Assessment/Plan (1) Intractable back pain: PLAN: Secondary to paraspinal muscle spasm. Ordered Lidoderm patch, oxycodone, as needed hydromorphone, scheduled acetaminophen and ketorolac. Hopefully with time that will get better that she be able to be discharged home. PLAN: Plan History of MTHFR mutation with history of pulmonary embolism: Continue with apixaban Hypertension: Continue with amlodipine VTE prophylaxis: Not indicated patient is already on apixaban CODE STATUS: Interested patient. Patient wishes to be full code Patient seen and examined on December 10. Charges/Coding Visit Charges Inpatient E&M: 83896 Init Hosp L2
--- OUTSIDE RECORDS SUMMARY | 2024-12-10 18:56 | XMS RPT_ITS | CCD ---
Author Organization [facility] Care Team Providers Care Metal Leaf Layer Name Role Phone Kashif Bernard MD Primary Care Provider Dr. Kashif Bernard Primary Care Provider Dr. Kashif Bernard Referring Provider [facility] PORTABLE FEED MILL OPERATOR, PORTABLE FEED MILL OPERATOR-Marcus Garcia Attending Provider Kashif Bernard MD Primary Care Provider Kashif Bernard MD Primary Care Provider PROVIDER, UNKNOWN Referring Unavailable TALAMPAS, KASHIF D Primary Care Unavailable Talampas, Kashif D Referring Unavailable Rao Chavez Attending Unavailable Talampas, Kashif D Primary Care Unavailable Brown, Maria Referring Unavailable Brown, Maria Attending Unavailable Talampas, Kashif D Primary Care Unavailable Brown, Maria Referring Unavailable Brown, Maria Attending Unavailable Talampas, Kashif D Primary Care Unavailable Brown, Maria Referring Unavailable Brown, Maria Attending Unavailable Talampas, Kashif D Primary Care Unavailable Brown, Maria Attending Unavailable Talampas, Kashif D Primary Care Unavailable Brown, Maria Referring Unavailable Brown, Maria Referring Unavailable Talampas, Kashif D Primary Care Unavailable Brown, Maria Attending Unavailable Talampas, Kashif D Primary Care Unavailable Brown, Maria Referring Unavailable Brown, Maria Attending Unavailable Kashif Bernard MD Primary Care Provider Renee PIG MACHINE SUPERVISOR.PLANNING SPECIALIST, Emy Unavailable Brant PIG MACHINE SUPERVISOR.DRILL PRESS OPERATOR HELPER, Morelia Unavailable Brant PIG MACHINE SUPERVISOR.DRILL PRESS OPERATOR HELPER, Morelia Unavailable Brant PIG MACHINE SUPERVISOR.DRILL PRESS OPERATOR HELPER, Morelia Unavailable Renee PIG MACHINE SUPERVISOR.PLANNING SPECIALIST, Emy Unavailable TALAMPAS, KASHIF D Primary Care Unavailable MARISOL AMANDA Referring Unavailable MARISOL AMANDA Referring Unavailable TALAMPAS, KASHIF D Primary Care Unavailable TALAMPAS, KASHIF D Primary Care Unavailable TALAMPAS, KASHIF D Attending Unavailable TALAMPAS, KASHIF D Primary Care Unavailable MARISOL AMANDA Attending Unavailable TALAMPAS, KASHIF D Primary Care Unavailable TALAMPAS, KASHIF D Primary Care Unavailable TALAMPAS, KASHIF D Attending Unavailable TALAMPAS, KASHIF D Referring Unavailable TALAMPAS, KASHIF D Primary Care Unavailable TALAMPAS, KASHIF D Primary Care Unavailable TALAMPAS, KASHIF D Attending Unavailable TALAMPAS, KASHIF D Referring Unavailable TALAMPAS, KASHIF D Primary Care Unavailable HARPSTER, DANGELO Attending Unavailable HARPSTER, DANGELO Referring Unavailable TALAMPAS, KASHIF D Primary Care Unavailable HARPSTER, DANGELO Referring Unavailable TALAMPAS, KASHIF D Primary Care Unavailable MARIA FIELD Attending Unavailable TALAMPAS, KASHIF D Primary Care Unavailable MARISOL AMANDA Referring Unavailable Allergies Allergy Classification Reported Allergen(s) Allergy Type Date of Onset Reaction(s) Facility (20 sources) Acetaminophen / HYDROcodone; Translations: [HYDROCODONE-ACET AMINOPHEN] Drug Allergy 7 Itching, Vomiting [facility] Work Phone: (20 sources) Amoxicillin / Clavulanate; Translations: [AMOXICILLIN-POT CLAVULANATE] Drug Allergy 2 GI Upset [facility] Work Phone: (20 sources) buPROPion; Translations: [BUPROPION] Drug Allergy 8 Mental Status Change [facility] Work Phone: (20 sources) DULoxetine; Translations: [DULOXETINE] Drug Allergy 2 Other: See Comments [facility] Work Phone: (20 sources) Pseudoephedrine; Translations: [PSEUDOEPHEDRINE] Drug Allergy 7 Intolerance [facility] Work Phone: (20 sources) Sertraline; Translations: [SERTRALINE HCL] Drug Allergy 2 Diarrhea [facility] Work Phone: (20 sources) silver sulfADIAZINE; Translations: [SILVER SULFADIAZINE] Drug Allergy 7 Intolerance [facility] Work Phone: (20 sources) Tetracycline; Translations: [TETRACYCLINE] Drug Allergy 7 GI Upset [facility] Work Phone: (20 sources) traMADol; Translations: [TRAMADOL] Drug Allergy 4 GI Upset [facility] (20 sources) venlafaxine; Translations: [VENLAFAXINE] Drug Allergy 2 Diarrhea [facility] Work Phone: (4 sources) Acetaminophen Drug Allergy 2 Nausea/Vom/Diar [facility] (5 sources) buPROPion; Translations: [bupropion HCl] Drug Allergy 2 Nausea/Vom/Diar [facility] (5 sources) HYDROcodone; Translations: [hydrocodone bitartrate] Drug Allergy 2 Nausea/Vom/Diar [facility] (1 source) Acetaminophen Drug Allergy 2 [facility] (1 source) Tetracycline Drug Allergy 2 [facility] Medications Current Medications Medication Drug Class(es) Dates Sig (Normalized) Sig (Original) [id number] 200 actuat albuterol 0.09 mg/actuat metered dose inhaler (20 sources) beta2-Adrenergic Agonist Start: 08-08-2024 take 2 puff(s) by mouth every six hours as needed for wheezing albuterol HFA (PROVENTIL HFA, VENTOLIN HFA) 90 mcg/actuation inhaler Indications: Chronic obstructive pulmonary disease, unspecified COPD type (HCC) INHALE 2 PUFFS BY MOUTH EVERY 6 HOURS NEEDED FOR WHEEZING AND FOR SHORTNESS OF BREATH 7 g 11 08/08/2024 Active Start: 02-22-2023 End: 08-08-2024 take 2 puff(s) by inhalation every six hours as needed for wheezing albuterol HFA (PROVENTIL HFA, VENTOLIN HFA) 90 mcg/actuation inhaler Indications: Chronic obstructive pulmonary disease, unspecified COPD type (HCC) Inhale 2 Puffs as instructed every 6 hours as needed for wheezing/shortness of breath. 6.7 g 5 03/08/2024 08/08/2024 Discontinued Start: 09-07-2021 End: 06-10-2022 take 2 puff(s) by inhalation every six hours as needed for wheezing albuterol HFA (PROVENTIL HFA, VENTOLIN HFA) 90 mcg/actuation inhaler Indications: Chronic obstructive pulmonary disease, unspecified COPD type (HCC) Inhale 2 Puffs as instructed every 6 hours as needed for wheezing/shortness of breath. 6.7 g 5 06/11/2022 Active Start: 01-13-2020 End: 03-31-2020 take 2 puff(s) by inhalation every six hours as needed for wheezing albuterol HFA (PROVENTIL HFA, VENTOLIN HFA) 90 mcg/actuation inhaler Indications: Chronic obstructive pulmonary disease, unspecified COPD type (HCC) Inhale 2 Puffs as instructed every 6 hours as needed for Wheezing/Shortness of Breath. 6.7 g 01/13/2020 03/31/2020 Discontinued Start: 02-10-2018 take 1 puff(s) by in halation every four hours as needed Albuterol Sulfate Active 2 PUFF INHALATION EVERY 4 HOURS NEEDED February 10, 2018 9:47am Start: 02-05-2018 End: 02-10-2018 take 1 puff(s) by inhalation every four hours as needed Albuterol Sulfate (Ventolin Hfa) 1 INHALER inhaler Discontinued 2 PUFF INHALATION EVERY 4 HOURS NEEDED February 05, 2018 1:00am February 10, 2018 9:47am Comment on above: Inhale 2 Puffs as in structed every 6 hours as needed for wheezing/shortness of breath. albuterol 0.833 mg/ml / ipratropium bromide 0.167 mg/ml inhalation solution (20 sources) Anticholinergic, beta2-Adrenergic Agonist Start: 2021 End: 2023 take 3 mL by inhalation every six hours as needed for wheezing ipratropium-albutero l (DUONEB) 0.5 mg-3 mg(2.5 mg base)/3 mL nebu Indications: Stage 3 severe COPD by GOLD classification (HCC) Inhale 3 mL as instructed every 6 hours as needed (wheezing/shortness of breath). 120 Each 5 08/24/2023 Active Start: 02-10-2018 End: 01-10-2019 take 1 mL by inhalation every four hours Ipratropium-Albuterol Active 3 ML INHALATION EVERY 4 HOURS January 10, 2019 5:04pm Start: 02-06-2018 End: 07-11-2018 take 1 puff(s) by inhalation four times daily Ipratropium-Albuterol Discontinued 1 PUFF INHALATION 4 TIMES DAILY February 07, 2018 2:13pm July 11, 2018 3:44pm Comment on above: Inhale 3 mL as instr ucted every 6 hours as needed (wheezing/shortness of breath). amLODIPine 10 mg oral tablet (20 sources) Dihydropyridine Calcium Channel Tsering Start: 01-12-20 take 1 tablet by mouth once daily amLODIPine (NORVASC) 10 mg tablet Take 1 tablet by mouth once daily. 90 tablet 3 01/12/2024 Active Start: 02-23-2023 End: 01-10-2024 take 1 tablet by mouth once daily amLODIPine (NORVASC) 10 mg tablet Take 1 tablet by mouth once daily. 90 tablet 3 02/23/2023 01/10/2024 Discontinued Start: 01-26-2021 End: 12-14-2021 take 1 tablet by mouth once daily amLODIPine (NORVASC) 10 mg tablet Take 1 tablet by mouth once daily. 90 tablet 3 01/26/2021 12/14/2021 Discontinued Comment on above: Take 1 tablet by kirt th once daily. apixaban 5 mg oral tablet (20 sources) Factor Xa Inhibitor Start: 03-06-2023 End: 02-02-2024 take 1 tablet by mouth twice daily apixaban (ELIQUIS) 5 mg tab(s) Indications: History of pulmonary embolism Take 1 tablet by mouth two times a day. 180 tablet 3 02/02/2024 Active Start: 01-06-2021 End: 12-14-2021 take 1 tablet by mouth twice daily apixaban (ELIQUIS) 5 mg tab(s) Indications: Acute pulmonary embolism without acute cor pulmonale, unspecified pulmonary embolism type (HCC) Take 1 tablet by mouth twice daily. 60 tablet 11 12/14/2021 Active Comment on above: Take 1 tablet by kirt th twice daily. Take 1 tablet by kirt th two times a day. aspirin 81 mg chewable tablet (20 sources) Platelet Aggregation Inhibitor, Nonsteroidal Anti-inflammatory Drug Start: 02-10-2018 take 81 mg by mouth once daily Aspirin Active 81 MG PO DAILY@0800 30 February 10, 2018 1:00am take 1 tablet by mouth once saroj y aspirin, enteric coated (ASPIRIN, ENTERIC COATED) 81 mg EC tablet Take 81 mg by mouth once daily. Active Comment on above: Take 81 mg by mouth once daily. atorvastatin 40 mg oral tablet (20 sources) HMG-CoA Reductase Inhibitor Start: 02-10-19 End: 02-02-20 24 take 1 tablet by mouth once daily atorvastatin (LIPITOR) 40 mg tablet Take 1 tablet by mouth once daily. 90 tablet 3 02/02/2024 Active Comment on above: Take 40 mg by mouth once daily. Budesonide / formoterol (20 sources) Corticosteroid, beta2-Adrenergic Agonist Start: 06-14-19 25 take 2 puff(s) by inhalation twice daily budesonide-formotero l (BREYNA) 160-4.5 mcg/actuation inhaler Inhale 2 puffs as instructed two times a day. 10.2 g 11 06/13/2024 Active Start: 01-16-2024 End: 06-13-2024 take 2 puff(s) by inhalation twice daily budesonide-formoterol (BREYNA) 160-4.5 mcg/actuation inhaler Inhale 2 Puffs as instructed two times a day. 10.2 g 5 01/16/2024 06/13/2024 Discontinued Start: 01-16-2024 take 2 puff(s) by in halation twice daily budesonide-formoterol (BREYNA) 160-4.5 mcg/actuation inhaler Inhale 2 Puffs as instructed two times a day. 10.2 g 5 01/16/2024 Active Start: 03-20-2023 End: 12-05-2023 take 2 puff(s) by inhalation twice daily budesonide-formoterol (BREYNA) 160-4.5 mcg/actuation inhaler Inhale 2 Puffs as instructed two times a day. 11 g 5 03/20/2023 12/05/2023 Discontinued (Course of therapy completed) Start: 03-20-2023 take 2 puff(s) by in halation twice daily budesonide-formoterol (BREYNA) 160-4.5 mcg/actuation inhaler Inhale 2 Puffs as instructed two times a day. 11 g 5 03/20/2023 Active Start: 03-20-2023 End: 09-16-2023 take 2 puff(s) by inhalation twice daily budesonide-formoterol (BREYNA) 160-4.5 mcg/actuation inhaler Inhale 2 Puffs as instructed two times a day. 11 g 5 03/20/2023 09/16/2023 Active Start: 02-21-2023 End: 03-20-2023 take 2 puff(s) by mouth twice daily budesonide-formoterol (SYMBICORT) 160-4.5 mcg/actuation inhaler INHALE 2 PUFFS BY MOUTH TWICE DAILY DIRECTED 11 g 0 02/21/2023 03/20/2023 Discontinued Start: 02-11-2022 take 2 puff(s) by in halation twice daily budesonide-formoterol (SYMBICORT) 160-4.5 mcg/actuation inhaler Inhale 2 Puffs as instructed twice daily. 1 Each 11 02/11/2022 Active Start: 07-19-2021 take 1 puff(s) by in halation twice daily Budesonide-Formoterol Active 2 PUFF INHALATION TWICE A DAY July 19, 2021 12:00am Start: 06-15-2021 End: 01-20-2022 take 2 puff(s) by inhalation twice daily budesonide-formoterol (SYMBICORT) 160-4.5 mcg/actuation inhaler Indications: Asthma with chronic obstructive pulmonary disease (COPD) (HCC) Inhale 2 Puffs as instructed twice daily. 1 Inhaler 11 06/15/2021 01/20/2022 Discontinued Start: 06-15-2021 take 2 puff(s) by in halation twice daily budesonide-formoterol (SYMBICORT) 160-4.5 mcg/actuation inhaler Indications: Asthma with chronic obstructive pulmonary disease (COPD) (HCC) Inhale 2 Puffs as instructed twice daily. 1 Inhaler 11 06/15/2021 Active Start: 05-20-2020 End: 06-15-2021 take 2 puff(s) by inhalation twice daily budesonide-formoterol (SYMBICORT) 160-4.5 mcg/actuation inhaler Indications: Asthma with chronic obstructive pulmonary disease (COPD) (HCC) Inhale 2 Puffs as instructed twice daily. 1 Inhaler 11 05/20/2020 06/15/2021 Discontinued Start: 05-20-2020 take 2 puff(s) by in halation twice daily budesonide-formoterol (SYMBICORT) 160-4.5 mcg/actuation inhaler Indications: Asthma with chronic obstructive pulmonary disease (COPD) (HCC) Inhale 2 Puffs as instructed twice daily. 1 Inhaler 11 05/20/2020 Active Start: 12-05-2019 End: 05-20-2020 take 2 puff(s) by inhalation twice daily budesonide-formoterol (SYMBICORT) 160-4.5 mcg/actuation inhaler Inhale 2 Puffs as instructed twice daily. 1 Inhaler 5 12/05/2019 05/20/2020 Discontinued Comment on above: Inhale 2 Puffs as in structed twice daily. INHALE 2 PUFFS BY MO UT TWICE DAILY DIRECTED Inhale 2 Puffs as in structed two times a day. cetirizine hydrochloride 10 mg oral tablet (20 sources) Histamine-1 Receptor Antagonist Start: End: take 1 tablet by mouth once daily cetirizine (ZYRTEC) 10 mg tablet Indications: Seasonal allergies Take 1 tablet by mouth once daily. 90 tablet 3 02/02/2024 Active Start: 04-12-2018 End: 06-15-2021 take 1 tablet by mouth once daily cetirizine (ZYRTEC) 10 mg tablet Indications: Seasonal allergies Take 1 tablet by mouth once daily. 30 tablet 11 05/20/2020 06/15/2021 Discontinued Start: 02-05-2018 End: 02-26-2018 take 10 mg by mouth once daily Cetirizine Discontinued 10 MG PO DAILY February 05, 2018 1:00am February 26, 2018 10:53am Comment on above: Take 1 tablet by kirt th once daily. citalopram 40 mg oral tablet (20 sources) Serotonin Reuptake Inhibitor Start: 03-06-2023 End: 04-15-2024 take 1 tablet by mouth once daily citalopram (CELEXA) 40 mg tablet Indications: Reactive depression , Panic disorder without agoraphobia Take 1 tablet by mouth once daily. 90 tablet 3 04/15/2024 Active Start: 01-07-2021 take 30 mg by mouth once daily Citalopram Active 30 MG PO DAILY January 07, 2021 2:57pm Start: 12-25-2020 End: 12-14-2021 take 1.5 tablets by mouth once daily citalopram (CELEXA) 20 mg tablet Indications: Reactive depression , Panic disorder without agoraphobia Take 1.5 tablets by mouth once daily. 135 tablet 3 12/25/2020 12/14/2021 Discontinued Start: 02-05-2018 End: 01-07-2021 take 1 tablet by mouth once daily citalopram (CELEXA) 20 mg tablet Indications: Panic disorder without agoraphobia , Situational depression , Reactive depression Take 1 tablet by mouth once daily. 90 tablet 3 01/15/2020 11/30/2020 Discontinued Comment on above: Take 1.5 tablets by mouth once daily. Take 1 tablet by kirt th once daily. diclofenac sodium 50 mg delayed release oral tablet (4 sources) Nonsteroidal Anti-inflammatory Drug Start: take 1 tablet by mouth every eight hours as needed diclofenac, EC, (VOLTAREN) 50 mg EC tablet Take 1 tablet by mouth three times a day as needed (Left SI joint pain). 30 tablet 08/05/2024 Active furosemide 20 mg oral tablet (20 sources) Loop Diuretic Start: End: furosemide (LASIX) 20 mg tablet 1 daily as needed to manage swelling of feet and lower legs. 30 tablet 09/03/2024 Active Start: 07-19-2021 End: 07-19-2021 Furosemide (Lasix) 40 mg tab let Active 40 MG PO .PRN July 19, 2021 11:43am Start: 06-15-2021 End: 07-19-2024 furosemide (LASIX) 20 mg tab let 1 daily as needed to manage swelling of feet and lower legs. 30 tablet 06/15/2021 07/19/2024 Discontinued Start: 08-18-2020 End: 05-21-2021 furosemide (LASIX) 20 mg tab let 1 daily as needed to manage swelling of feet and lower legs. 30 tablet 0 08/18/2020 05/21/2021 Discontinued (Course of therapy completed) Comment on above: 1 daily as needed to manage swelling of feet and lower legs. ipratropium bromide 0.042 mg/actuat metered dose nasal spray (20 sources) Anticholinergic Start: 02-02-2024 ipratropium bromide (ATROVENT) 42 mcg (0.06 %) nasal spray Indications: Nasal congestion , Post-nasal drainage , Sinus congestion Use 2 Sprays in the nose four times a day as needed (nasal congestion and runny nose). 15 mL 2 02/02/2024 Active Start: 02-05-2018 End: 02-06-2018 take 17 ug by inhalation once daily Ipratropium [place] (Atrovent Hfa) 12.9 GM Hfa.Aer.Ad Discontinued 17 MCG IH DAILY February 05, 2018 1:00am February 06, 2018 1:11pm levoFLOXacin 750 mg oral tablet (13 sources) Quinolone Antimicrobial Start: 05-21-2021 End: 05-28-2021 take 1 tablet by mouth once daily levoFLOXacin (LEVAQUIN) 750 mg tablet Indications: COPD with exacerbation (HCC) Take 1 tablet by mouth once daily for 7 days. 7 tablet 0 05/21/2021 05/28/2021 Active Start: 02-06-2018 End: 02-26-2018 take 750 mg by mouth once daily Levofloxacin Discontinued 750 MG PO DAILY 3 February 10, 2018 9:47am February 26, 2018 10:54am Comment on above: Take 1 tablet by kirt once daily for 7 days. montelukast 10 mg oral tablet (20 sources) Leukotriene Receptor Antagonist Start: 8 End: take 1 tablet by mouth once daily at bedtime montelukast (SINGULAIR) 10 mg tablet Take 1 tablet by mouth daily at bedtime. 90 tablet 3 02/02/2024 Active Comment on above: Take 1 tablet by kirt th daily at bedtime. pantoprazole 40 mg delayed release oral tablet (20 sources) Proton Pump Inhibitor Start: 4 End: 5 take 1 tablet by mouth once daily pantoprazole DR (PROTONIX) 40 mg tablet Indications: Encounter for long-term current use of medication Take 1 tablet by mouth once daily. 90 tablet 1 09/03/2024 Active perflutren lipid microspheres 1.3 mL in NaCl (PF) 0.9% 10 mL injection (DEFINITY) (20 sources) Start: 3 End: 4 perflutren lipid microspheres 1.3 mL in NaCl (PF) 0.9% 10 mL injection (DEFINITY) Start: 12-28-2020 End: 03-29-2022 perflutren lipid microsphere s 1.3 mL in NaCl (PF) 0.9% 10 mL injection (DEFINITY) predniSONE 10 mg oral tablet (15 sources) Start: 11-29-2021 End: 12-08-2021 predniSONE (DELTASONE) 10 mg tablet Indications: Neck pain Take 4 tabs daily for 3 days, then 2 tabs daily for 3 days, then 1 tab daily for 3 days with food. 21 tablet 0 11/29/2021 12/08/2021 Active Start: 05-21-2021 End: 05-26-2021 take 2 tablets by mouth once daily predniSONE (DELTASONE) 20 mg tablet Indications: COPD with exacerbation (HCC) Take 2 tablets by mouth once daily for 5 days. 10 tablet 0 05/21/2021 05/26/2021 Active Start: 02-18-2021 End: 05-21-2021 predniSONE (DELTASONE) 10 mg tablet Indications: COPD with exacerbation (HCC) 4 tablets daily for 3 days, 3 tablets daily for 3 days, 2 tablets daily for 3 days, 1 tablet daily for 3 days. 30 tablet 0 02/18/2021 05/21/2021 Discontinued (Course of therapy completed) Start: 02-10-2018 End: 02-15-2018 take 40 mg by mouth once daily Prednisone Discontinued 40 MG PO DAILY 10 February 10, 2018 1:00am February 15, 2018 1:06am Start: 02-06-2018 End: 02-10-2018 take 40 mg by mouth once daily Prednisone Discontinued 10 MG PO DIRECTED February 07, 2018 2:13pm February 10, 2018 9:45am 40mg daily x3 days 30mg daily x3 days 20mg daily x3 days 10mg daily x3 days Comment on above: Take 2 tablets by [facility] once daily for 5 days. 4 tablets daily for 3 days, 3 tablets daily for 3 days, 2 tablets daily for 3 days, 1 tablet daily for 3 days. Take 4 tabs daily fo r 3 days, then 2 tabs daily for 3 days, then 1 tab daily for 3 days with food. 125 ml sodium chloride 9 mg/ml prefilled syringe (20 sources) Start: 04-14-2022 End: 07-14-2023 sodium chloride 0.9 % (flush) 10 mL (BD POSIFLUSH) Start: 12-28-2020 End: 03-29-2022 sodium chloride 0.9 % (flush ) 10 mL (BD POSIFLUSH) 10 actuat tiotropium 0.0025 mg/actuat inhalation spray (20 sources) Anticholinergic Start: 02-22-2023 End: 12-10-2024 take 2 puff(s) by mouth once daily, then take 2 puff(s) by mouth once daily tiotropium bromide (SPIRIVA RESPIMAT) 2.5 mcg/actuation inhaler Inhale 2 puffs as instructed once daily. inhale 2 puffs by mouth once daily 4 g 06/13/2024 12/10/2024 Active Start: 02-11-2022 take 2 puff(s) by in halation once daily tiotropium bromide (SPIRIVA RESPIMAT) 2.5 mcg/actuation inhaler Indications: Asthma with chronic obstructive pulmonary disease (COPD) Inhale 2 Puffs as instructed once daily. 4 g 11 02/11/2022 Active Start: 12-05-2019 End: 05-20-2020 take 2 puff(s) by inhalation once daily tiotropium bromide (SPIRIVA RESPIMAT) 2.5 mcg/actuation inhaler Inhale 2 Puffs as instructed once daily. 1 Inhaler 5 12/05/2019 05/20/2020 Discontinued Comment on above: Inhale 2 Puffs as in struct once daily. inhale 2 puffs by mo uth once daily Inhale 2 Puffs as in structed once daily. inhale 2 puffs by mouth once daily triamcinolone acetonide 0.055 mg/actuat metered dose nasal spray (20 sources) Corticosteroid Start: 05-13-2022 Triamcinolone Acetonide Active 1 SPRAY TWICE A DAY May 13, 2022 12:00am Start: 05-20-2020 End: 08-05-2022 take 2 spray(s) nasal route once daily triamcinolone acetonide (NASACORT AQ) 55 mcg nasal inhaler Indications: Asthma with chronic obstructive pulmonary disease (COPD) (HCC) Use 2 Sprays in each nostril once daily. 16.9 mL 1 08/05/2022 Active Comment on above: Use 2 Sprays in each nostril once daily. varenicline (19 sources) Partial Cholinergic Nicotinic Agonist Start: 07-19-2021 Varenicline Active TAB PO July 19, 2021 12:00am Start: 07-16-2021 End: 12-14-2021 take 1 tablet by mouth once daily varenicline (CHANTIX STARTING MONTH BOX) 0.5 mg (11)- 1 mg (42) tablet Take 0.5 mg by mouth once daily on Days 1 through 3, THEN 0.5 mg twice daily on Days 4 through 7, THEN 1 mg twice daily on Day 8 and thereafter 53 tablet 0 07/16/2021 12/14/2021 Discontinued (Adverse Reaction) Start: 07-16-2021 End: 12-14-2021 take 1 tablet by mouth twice daily varenicline (CHANTIX CONTINUING MONTH BOX) 1 mg tablet Take 1 tablet by mouth twice daily. 60 tablet 1 07/16/2021 12/14/2021 Discontinued (Adverse Reaction) Comment on above: Take 0.5 mg by mouth once daily on Days 1 through 3, THEN 0.5 mg twice daily on Days 4 through 7, THEN 1 mg twice daily on Day 8 and thereafter Take 1 tablet by kirt th twice daily. zolpidem tartrate 5 mg oral tablet (20 sources) gamma-Aminobutyric Acid-ergic Agonist Start: 08-07-2023 End: 10-21-2024 take 1 tablet by mouth at bedtime as needed zolpidem (AMBIEN) 5 mg tablet Indications: Sleep disturbance Take 1 tablet by mouth at bedtime as needed for up to 90 days. 30 tablet 2 07/23/2024 10/21/2024 Active Start: 07-21-2023 End: 07-21-2023 take 1 tablet by mouth at bedtime as needed zolpidem (AMBIEN) 5 mg tablet Indications: Sleep disturbance Take 1 tablet by mouth at bedtime as needed for up to 90 days. 30 tablet 2 07/21/2023 07/21/2023 Discontinued Start: 07-08-2023 End: 08-07-2023 take 0.5-1 tablets by mouth every 30 days at bedtime as needed zolpidem (AMBIEN) 5 mg tablet Indications: Sleep disturbance Take 0.5-1 tablets by mouth at bedtime as needed for up to 30 days. 30 tablet 0 07/08/2023 07/21/2023 Discontinued Start: 05-20-2023 End: 07-06-2023 zolpidem (AMBIEN) 5 mg table t Indications: Sleep disturbance Take 0.5-1 tablets by mouth at bedtime as needed for up to 30 days. Do not start before May 20, 2023. 30 tablet 0 05/20/2023 07/06/2023 Discontinued Start: 03-06-2023 End: 04-05-2023 take 0.5-1 tablets by mouth every 30 days at bedtime as needed zolpidem (AMBIEN) 5 mg tablet Indications: Sleep disturbance Take 0.5-1 tablets by mouth at bedtime as needed for up to 30 days. 30 tablet 0 03/06/2023 Active Comment on above: Take 0.5-1 tablets b y mouth at bedtime as needed for up to 30 days. Completed/Discontinued Medications Medication Drug Class(es) Dates Sig (Normalized) Sig (Original) ALPRAZolam 0.5 mg oral tablet (20 sources) Benzodiazepine Start: 11-05-2023 End: 06-13-2024 take 1 tablet by mouth at bedtime as needed ALPRAZolam (XANAX) 0.5 mg tablet Indications: Panic disorder without agoraphobia Take 1 tablet by mouth at bedtime as needed for up to 60 days. 28 tablet 03/08/2024 06/13/2024 Discontinued (Discontinued by another Health Care Provider) Start: 02-23-2023 End: 04-24-2023 take 1 tablet by mouth at bedtime as needed ALPRAZolam (XANAX) 0.5 mg tablet Indications: Panic disorder without agoraphobia Take 1 tablet by mouth at bedtime as needed for up to 60 days. 28 tablet 0 02/23/2023 Active Start: 02-26-2018 End: 09-17-2022 take 1 tablet by mouth at bedtime as needed ALPRAZolam (XANAX) 0.5 mg tablet Indications: Panic disorder without agoraphobia Take 1 tablet by mouth at bedtime as needed for up to 60 days. Do not start before November 23, 2019. 28 tablet 11/23/2019 03/31/2020 Discontinued Comment on above: Take 1 tablet by kirt th at bedtime as needed for up to 60 days. arformoterol 0.0075 mg/ml inhalation solution (3 sources) beta2-Adrenergic Agonist Start: End: take 2 mL by inhalation every twelve hours arformoterol (BROVANA) 15 mcg/2 mL nebulizer solution Indications: Stage 3 severe COPD by GOLD classification ([facility]) Inhale 2 mL as instructed every 12 hours. 120 mL 11 12/05/2023 01/16/2024 Discontinued (Course of therapy completed) budesonide 0.25 mg/ml inhalation suspension (4 sources) Corticosteroid Start: End: budesonide (PULMICORT) 0.5 mg/2 mL nebulizer solution Indications: Stage 3 severe COPD by GOLD classification ([facility]) Use 2 mL via nebulizer two times a day. 120 mL 11 12/05/2023 01/16/2024 Discontinued (Course of therapy completed) Start: 04-01-2021 End: 05-21-2021 budesonide (PULMICORT) 0.5 m g/2 mL nebulizer solution Indications: Stage 3 severe COPD by GOLD classification ([facility]) Use 2 mL via nebulizer twice daily. INHALE 2 ML BY NEBULIZER OVER 5-15 MINUTES EVERY 12 HOURS. 60 Ampule 3 04/01/2021 05/21/2021 Discontinued (Not on Formulary) Comment on above: Use 2 mL via nebuliz er twice daily. INHALE 2 ML BY NEBULIZER OVER 5-15 MINUTES EVERY 12 HOURS. clopidogrel 75 mg oral tablet (4 sources) P2Y12 Platelet Inhibitor Start: 02-10-19 End: 07-26-19 take 75 mg by mouth once daily Clopidogrel Discontinued 75 MG PO DAILY February 10, 2018 1:00am July 25, 2018 8:41am cyclobenzaprine hydrochloride 10 mg oral tablet (20 sources) Muscle Relaxant Start: 08-06-19 End: 02-06-20 take 1 tablet by mouth three times daily as needed for muscle spasms cyclobenzaprine (FLEXERIL) 10 mg tablet Indications: Neck pain Take 1 tablet by mouth three times daily as needed for muscle spasm. 15 tablet 08/05/2022 02/06/2024 Discontinued (Course of therapy completed) Start: 05-13-2022 take 2 tablets by [facility] three times daily Cyclobenzaprine (Flexeril) 5 mg Tablet Active 10 MG PO THREE TIMES A DAY May 13, 2022 12:00am Start: 11-29-2021 End: 01-06-2022 take 1 tablet by mouth three times daily as needed for muscle spasms cyclobenzaprine (FLEXERIL) 10 mg tablet Indications: Neck pain Take 1 tablet by mouth three times daily as needed for muscle spasm. 15 tablet 0 11/29/2021 01/06/2022 Discontinued End: 12-07-2022 cyclobenzaprine HCl (FLEXERI L ORAL) Take by mouth as needed (muscle spasm). 0 12/07/2022 Discontinued cyclobenzaprine HCl (FLEXERIL ORAL) Take by mouth as needed (muscle spasm). 0 Active Comment on above: Take 1 tablet by [facility] three times daily as needed for muscle spasm. Take by mouth as nee ded (muscle spasm). famotidine 20 mg oral tablet (4 sources) Histamine-2 Receptor Antagonist Start: End: take 20 mg by mouth at bedtime Famotidine Discontinued 20 MG PO AT BEDTIME April 12, 2018 1:00am January 10, 2019 5:04pm fluticasone propionate 0.05 mg/actuat metered dose nasal spray (1 source) Corticosteroid Start: End: take 1 spray(s) nasal route once daily fluticasone (FLONASE) 50 mcg/actuation nasal spray Indications: Seasonal allergies Use 1 [place] in each nostril once daily. 1 Bottle 5 10/25/2019 08/06/2020 Discontinued (Clinical Decision) 30 actuat fluticasone furoate 0.1 mg/actuat / umeclidinium 0.0625 mg/actuat / vilanterol 0.025 mg/actuat dry powder inhaler (8 sources) Anticholinergic, Corticosteroid, beta2-Adrenergic Agonist Start: 022 End: 023 take 1 puff(s) by inhalation once daily fluticasone-umeclidin -vilanter (TRELEGY ELLIPTA) 100-62.5-25 mcg inhalation powder Indications: Stage 3 severe COPD by GOLD classification ([facility]) Inhale 1 Puff as instructed once daily. 1 Each 11 01/20/2022 02/11/2022 Discontinued Start: 04-12-2018 End: 01-07-2021 Wzmqgmpaduq-Hkdutiktf-Chfitk er (Trelegy Ellipta) 100-62.5-25 mcg blister with device Discontinued 1 INH INHALATION DAILY April 12, 2018 1:00am January 07, 2021 2:57pm Comment on above: Inhale 1 Puff as ins tructed once daily. Fluticasone Furoate-Vilanterol (4 sources) Corticosteroid, beta2-Adrenergic Agonist Start: 02-06-20 End: 02-06-19 19 take 1 dose by inhalation once daily Fluticasone Furoate-Vilanterol (Breo Ellipta 200-25 Mcg Inh) 1 EACH Blst.W.Dev Discontinued 1 EACH IH DAILY February 05, 2018 1:00am February 06, 2018 12:38pm ibuprofen 200 mg oral tablet (4 sources) Nonsteroidal Anti-inflammatory Drug Start: 02-06-20 End: 02-10-19 19 Ibuprofen Discontinued 400 MG PO NEEDED February 05, 2018 1:00am February 10, 2018 9:45am loratadine 10 mg oral tablet (4 sources) Start: 02-26-19 19 End: 04-13-19 take 10 mg by mouth once daily Loratadine Discontinued 10 MG PO DAILY February 26, 2018 1:00am April 12, 2018 11:51am losartan potassium 25 mg oral tablet (20 sources) Angiotensin 2 Receptor Tsering Start: 01-11-20 End: 12-02-20 21 take 25 mg by mouth once daily Losartan Discontinued 25 MG PO DAILY May 07, 2019 4:33pm January 07, 2021 2:57pm Start: 03-02-2018 End: 01-10-2019 take 50 mg by mouth once daily Losartan Discontinued 5 0 MG PO DAILY March 02, 2018 11:12am January 10, 2019 5:32pm Start: 02-10-2018 End: 02-26-2018 take 50 mg by mouth once daily Losartan Discontinued 5 0 MG PO DAILY February 10, 2018 1:00am February 26, 2018 10:56am metoprolol tartrate 25 mg oral tablet (12 sources) beta-Adrenergic Tsering Start: 02-10-2018 End: 01-10-2019 take 25 mg by mouth twice daily Metoprolol Tartrate Discontinued 25 MG PO TWICE A DAY April 12, 2018 11:50am January 10, 2019 5:31pm 120 actuat mometasone furoate 0.1 mg/actuat metered dose inhaler (12 sources) Corticosteroid Start: 02-06-2018 End: 04-12-2018 Mometasone Discontinued 13 GM IH TWICE A DAY February 07, 2018 2:13pm April 12, 2018 11:52am use after Prednisone is finished, three inhalations twice a day Start: 02-05-2018 End: 02-06-2018 take 110 ug by inhalation once daily Mometasone (Asmanex 110 Mcg Twisthaler) 110 MCG Aer.Pow.Ba Discontinued 110 MCG INHALATION DAILY February 05, 2018 1:00am February 06, 2018 12:38pm mupirocin 0.02 mg/mg topical ointment (1 source) RNA Synthetase Inhibitor Antibacterial Start: 07-21-2023 End: 07-31-2023 mupirocin (BACTROBAN) 2 % ointment Indications: minor bacterial skin infections Apply 1 application to affected area two times a day for 10 days. 15 g 0 07/21/2023 07/31/2023 24 hr nicotine 0.292 mg/hr transdermal system (11 sources) Cholinergic Nicotinic Agonist Start: 01-01-2020 End: 08-06-2020 nicotine (NICODERM CQ) 7 mg/24 hr Indications: Tobacco use disorder Apply 1 Patch as directed every 24 hours. 30 Patch 01/01/2020 08/06/2020 Discontinued (Discontinued by Patient) Start: 12-01-2019 End: 08-06-2020 apply 1 dose transdermal route every twenty-four hours nicotine (NICODERM CQ) 14 mg/24 hr Indications: Tobacco use disorder Apply 1 Patch as directed every 24 hours. 30 Patch 12/01/2019 08/06/2020 Discontinued (Discontinued by Patient) Start: 11-01-2019 End: 05-20-2020 apply 1 dose transdermal route every twenty-four hours nicotine (NICODERM CQ) 21 mg/24 hr Indications: Tobacco use disorder Apply 1 Patch as directed every 24 hours. APPLY ONE(1) PATCH DAILY. 30 Patch 11/01/2019 05/20/2020 Discontinued Start: 02-06-2018 End: 02-26-2018 Nicotine Discontinued 14 MG TRANSDERM. DAILY February 07, 2018 2:13pm February 26, 2018 10:55am omeprazole 40 mg delayed release oral capsule (20 sources) Proton Pump Inhibitor Start: 07-19-2022 End: 02-02-2024 take 1 capsule by mouth once daily omeprazole (PRILOSEC) 40 mg capsule Take 1 capsule by mouth once daily. 90 capsule 3 08/24/2023 02/02/2024 Discontinued Start: 06-15-2021 End: 07-17-2022 take 1 capsule by mouth once daily omeprazole (PRILOSEC) 40 mg capsule Take 1 capsule by mouth once daily. 90 capsule 3 07/19/2022 Active Start: 04-17-2020 End: 06-15-2021 take 1 capsule by mouth once daily 30 minutes before breakfast omeprazole (PRILOSEC) 20 mg capsule TAKE ONE CAPSULE BY MOUTH ONCE DAILY 30 MINUTES BEFORE BREAKFAST 90 capsule 3 04/17/2020 06/15/2021 Discontinued Start: 03-19-2019 End: 04-12-2020 take 1 capsule by mouth once daily 30 minutes before breakfast omeprazole (PRILOSEC) 20 mg capsule TAKE ONE CAPSULE BY MOUTH ONCE DAILY 30 MINUTES BEFORE BREAKFAST 90 capsule 3 03/19/2019 04/12/2020 Discontinued Start: 02-05-2018 End: 07-19-2021 take 20 mg by mouth once daily Omeprazole Discontinued 20 MG PO DAILY February 05, 2018 1:00am July 19, 2021 11:04am Comment on above: TAKE ONE CAPSULE BY MOUTH ONCE DAILY 30 MINUTES BEFORE BREAKFAST Take 1 capsule by [facility] once daily. Umeclidinium (4 sources) Anticholinergic Start: 02-06-20 End: 02-06-19 take 1 puff(s) by inhalation once daily Umeclidinium (Incruse Ellipta Inhaler) 1 PUFF inhaler Discontinued 62.5 MCG IH DAILY February 05, 2018 1:00am February 06, 2018 12:38pm Problems Active Problems Problem Classification Problem Date Documented Date Episodic/Chronic Abdominal pain (4 sources) Epigastric pain; Translations: [Epigastric pain] 12-16-2020 Episodic Anxiety disorders (20 sources) Panic disorder without agoraphobia; Translations: [Panic disorder [episodic paroxysmal anxiety]] Onset: 05-08-2007 05-08-2007 Chronic Asthma (20 sources) Asthma; Translations: [Unspecified asthma, uncomplicated] Onset: 10-23-2006 11-27-2014 Chronic Chronic obstructive pulmonary disease and bronchiectasis (20 sources) Acute exacerbation of chronic obstructive airways disease; Translations: [Chronic obstructive pulmonary disease with (acute) exacerbation] Onset: 04-03-2020 Chronic Coronary atherosclerosis and other heart disease (7 sources) Coronary atherosclerosis; Translations: [Atherosclerotic heart disease of [place] coronary artery without angina pectoris] Onset: 08-05-2024 Chronic Disorders of lipid metabolism (8 sources) Mixed hyperlipidemia; Translations: [Mixed hyperlipidemia] Onset: 02-02-2024 Chronic Esophageal disorders (5 sources) Gastroesophageal reflux disease; Translations: [Gastro-esophageal reflux disease without esophagitis] 02-20-2018 Chronic Essential hypertension (20 sources) Essential hypertension; Translations: [Essential (primary) hypertension] Onset: 11-27-2014 11-27-2014 Chronic Genitourinary symptoms and ill-defined conditions (2 sources) Increased frequency of urination; Translations: [Frequency of micturition] 12-07-2022 Episodic Headache; including migraine (20 sources) Tension-type headache; Translations: [Tension-type headache, unspecified, not intractable] Onset: 05-08-2007 05-08-2007 Chronic Influenza (1 source) Influenza-like illness; Translations: [Influenza due to unidentified influenza virus with other respiratory manifestations] 02-06-2024 Episodic Lymphadenitis (1 source) Axillary lymphadenopathy; Translations: [Localized enlarged lymph nodes] Episodic Mood disorders (20 sources) Reactive depression (situational); Translations: [Major depressive disorder, single episode, unspecified] Onset: 05-08-2007 03-28-2017 Chronic Nutritional deficiencies (4 sources) Vitamin D deficiency; Translations: [Vitamin D deficiency, unspecified] Onset: 02-02-2024 Chronic Other aftercare (2 sources) Long-term current use of drug therapy; Translations: [Other terminal press operator (current) drug therapy] 02-02-2024 Episodic Other aftercare (1 source) Long-term current use of anticoagulant; Translations: [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] 03-04-2024 Episodic Other and ill-defined heart disease (4 sources) Takotsubo cardiomyopathy; Translations: [Takotsubo syndrome] 01-10-2019 Chronic Other and ill-defined heart disease (1 source) Takotsubo syndrome; Translations: [Takotsubo syndrome] Chronic Other liver diseases (4 sources) Cardiac enzymes abnormal; Translations: [Abnormal levels of other serum enzymes] 01-10-2019 Episodic Other liver diseases (6 sources) Alkaline phosphatase raised; Translations: [Abnormal levels of other serum enzymes] 08-20-2023 Episodic Other lower respiratory disease (1 source) Cough; Translations: [Cough] Episodic Other lower respiratory disease (4 sources) Dyspnea on exertion; Translations: [Dyspnea, unspecified] 07-19-2021 Episodic Other lower respiratory disease (11 sources) Multiple nodules of lung; Translations: [Other nonspecific abnormal finding of lung field] Episodic Other lower respiratory disease (1 source) Dyspnea, unspecified; Translations: [Other respiratory abnormalities] Episodic Other lower respiratory disease (1 source) Hypoxemia; Translations: [Hypoxia] Onset: 10-26-2024 Episodic Other nervous system disorders (1 source) Other chronic pain; Translations: [Chronic left SI joint pain] Onset: 08-05-2024 Chronic Other non-traumatic joint disorders (3 sources) Pain in right knee; Translations: [Pain in joint, lower leg] Episodic Other skin disorders (4 sources) Eruption; Translations: [Rash and other nonspecific skin eruption] 07-14-2014 Episodic Other skin disorders (1 source) Folliculitis; Translations: [Follicular disorder, unspecified] 07-21-2023 Episodic Other upper respiratory disease (20 sources) Allergic rhinitis; Translations: [Allergic rhinitis, unspecified] Onset: 10-23-2006 10-23-2006 Chronic Other upper respiratory disease (2 sources) Seasonal allergy; Translations: [Other seasonal allergic rhinitis] Chronic Other upper respiratory disease (1 source) Other seasonal allergic rhinitis; Translations: [Seasonal allergies] Onset: 02-02-2024 Chronic Other upper respiratory disease (1 source) Congestion of nasal sinus; Translations: [Nasal congestion] 02-02-2024 Episodic Other upper respiratory disease (1 source) Nasal congestion; Translations: [Nasal congestion] 02-02-2024 Episodic Pneumonia (except that caused by tuberculosis or sexually transmitted disease) (4 sources) Pneumonia; Translations: [Pneumonia, unspecified organism] 07-10-2018 Episodic Residual codes; unclassified (4 sources) Genetic mutation; Translations: [Genetic susceptibility to other disease] 07-19-2021 Episodic Residual codes; unclassified (1 source) Genetic susceptibility to other disease; Translations: [Personal history of diseases of blood and blood-forming organs] Episodic Residual codes; unclassified (5 sources) Disturbance in sleep behavior; Translations: [Sleep disorder, unspecified] 07-06-2023 Episodic Residual codes; unclassified (1 source) Bilateral lower limb edema; Translations: [Localized edema] 09-03-2024 Episodic Septicemia (except in labor) (4 sources) Sepsis; Translations: [Sepsis, unspecified organism] 07-10-2018 Episodic Sprains and strains (1 source) Strain of neck muscle; Translations: [Strain of muscle, fascia and tendon at neck level, sequela] Episodic Substance-related disorders (20 sources) Tobacco user; Translations: [Nicotine dependence, unspecified, uncomplicated] Chronic Unclassified (1 source) Asthma-chronic obstructive pulmonary disease overlap syndrome (HCC); Translations: [Asthma-chronic obstructive pulmonary disease overlap syndrome (HCC)] Onset: 04-03-2020 Past or Other Problems Problem Classification Problem Date Documented Date Episodic/Chronic Diabetes mellitus without complication (4 sources) High hemoglobin A1c level; Translations: [Other abnormal glucose] Onset: 02-02-2024 Episodic Immunizations and screening for infectious disease (2 sources) Suspected disease caused by 2019-nCoV; Translations: [Suspected COVID-19 virus infection] Onset: 02-02-2024 Episodic Nonmalignant breast conditions (20 sources) Solitary cyst of breast; Translations: [Solitary cyst of unspecified breast] Onset: 10-06-2006 10-06-2006 Episodic Other aftercare (20 sources) Drug therapy finding; Translations: [[facility] (current) use of anticoagulants] Onset: 07-16-2021 Episodic Other aftercare (1 source) Other terminal press operator (current) drug therapy; Translations: [Encounter for long-term current use of medication] Onset: 02-02-2024 Episodic Other liver diseases (1 source) Abnormal levels of other serum enzymes; Translations: [Elevated alkaline phosphatase level] Onset: 02-02-2024 Episodic Other lower respiratory disease (1 source) Other nonspecific abnormal finding of lung field; Translations: [Lung nodules] Onset: 07-18-2024 Episodic Other screening for suspected conditions (not mental disorders or infectious disease) (20 sources) Patient encounter status; Translations: [Encounter for screening for malignant neoplasm of colon] Onset: 07-18-2024 Episodic Other upper respiratory disease (2 sources) Nasal congestion; Translations: [Sinus congestion] Onset: 02-02-2024 Episodic Other upper respiratory infections (3 sources) Acute sinusitis; Translations: [Acute sinusitis, unspecified] Onset: 02-02-2024 04-10-2023 Episodic Otitis media and related conditions (20 sources) Dysfunction of eustachian tube; Translations: [Other specified disorders of Eustachian tube, unspecified ear] Onset: 10-23-2006 10-23-2006 Episodic Pulmonary heart disease (20 sources) Acute pulmonary embolism; Translations: [Other pulmonary embolism without acute cor pulmonale] Onset: 01-06-2021 Episodic Residual codes; unclassified (20 sources) FH: Cardiovascular disease; Translations: [Family history of ischemic heart disease and other diseases of the circulatory system] Onset: 06-07-2021 06-07-2021 Episodic Screening and history of mental health and substance abuse codes (10 sources) Ex-cigarette smoker; Translations: [Personal history of nicotine dependence] Onset: 07-18-2024 Episodic Spondylosis; intervertebral disc disorders; other back problems (4 sources) Neck pain; Translations: [Cervicalgia] Onset: 08-05-2024 Episodic Unclassified (3 sources) Patient encounter status 06-13-2024 Results Test Name Value Interpretation Reference Range Facility [facility] 11-13-2024 CNPN Telephone (INTMWS) DEBBIE MONTES I ([id number]) 1965 F Date Time Provider Department 11/13/24 KASHIF BERNARD INTMWS During your visit today, we recorded the following information about you: Nasreen Larsen RN 11/13/2024 4:13 PM Addendum Call received from Pt - name AND verified. Pt calls and states that [employer], where she obtained her home O2 from, told her that the Portable Oxygen Concentrator order (see telephone encounter 11/08/2024) needs to be modified and re-faxed. Order needs to state: PORTABLE OXYGEN CONCENTRATOR WITH PULSE DOSE SETTING TO USE AT 3 Pt states that she was told from the company that the word liters cannot be on the order. Confirmed correct fax number as . Please call patient and/or Medical Supply Company to verify correct information needed in order for her to receive her portable O2 concentrator for travel outside of the home. Next OV with Dr. Field (pulmonology): 12/17/2024 Nasreen Larsen RN November 13, 2024 4:13 PM Shannan Magdaleno LPN 11/14/2024 8:31 AM Signed Last oximetry with ambulation on file 02/18/21 patient was stable on room air. JULIO CESAR 06/13/24 does not mention use of home O2. Order for O2 written by PCP on 10/26/24 MALLORY Basurto Krystle, RN 11/15/2024 2:32 PM Signed Mikki with [employer] calls to let provider know that they are faxing over orders with changes for Dr. Bernard. Faxing to [phone]. DIONY Harris Liza D, MD 11/15/2024 7:08 PM Signed Found the fax and signed and faxed back Allergies As of Date: 11/13/2024 Noted Allergy Reaction SILVADENE (SILVER SULFADIAZINE) 09/08/2006 5 - Intolerance TETRACYCLINE 09/08/2006 8 - GI Upset AUGMENTIN (AMOXICILLIN-POT CLAVUL*02/08/2011 8 - GI Upset CYMBALTA (DULOXETINE) 04/14/2011 14 - Other: See Comments Comments: GI upset; poor appetite EFFEXOR XR (VENLAFAXINE) 05/10/2001 6 - Diarrhea Comments: Thinks maybe might be able to tolerate like Celexa after a while SUDAFED (PSEUDOEPHEDRINE) 11/15/2006 5 - Intolerance Comments: heart racing TRAMADOL 06/10/2013 8 - GI Upset VICODIN (HYDROCODONE-ACETAMIN OPHE*11/27/2006 9 - Itching 11 - Vomiting Comments: [place] very off balance; can take codeine WELLBUTRIN SR (BUPROPION) 05/08/2007 1 - Mental Status Change Comments: felt stoned ZOLOFT (SERTRALINE HCL) 05/10/2001 6 - Diarrhea Date Reviewed: 10/26/2024 Reviewed by: Mary Velazquez LPN - Fully Assessed Reason for Visit: Patient Question [1477] Prescriptions as of 11/15/2024 - FINGER PULSE OXIMETER 1 each as needed. Home pulse ox --exertional hypoxia needing home oxygen. Check pulse ox as needed - M[employer] Overnight pulse oximetry on room air. Has hypoxia with exertion. Wakes up at night sometimes SOB. - zolpidem (AMBIEN) 5 mg tablet Take 1 tablet by mouth at bedtime as needed for up to 90 days. - pantoprazole DR (PROTONIX) 40 mg tablet Take 1 tablet by mouth once daily. - furosemide (LASIX) 20 mg tablet 1 daily as needed to manage swelling of feet and lower legs. - albuterol HFA (PROVENTIL HFA, VENTOLIN HFA) 90 mcg/actuation inhaler INHALE 2 PUFFS BY MOUTH EVERY 6 HOURS NEEDED FOR WHEEZING AND FOR SHORTNESS OF BREATH - diclofenac, EC, (VOLTAREN) 50 mg EC tablet Take 1 tablet by mouth three times a day as needed (Left SI joint pain). - tiotropium bromide (SPIRIVA RESPIMAT) 2.5 mcg/actuation inhaler Inhale 2 puffs as instructed once daily. inhale 2 puffs by mouth once daily - budesonide-formoterol (BREYNA) 160-4.5 mcg/actuation inhaler Inhale 2 puffs as instructed two times a day. - citalopram (CELEXA) 40 mg tablet Take 1 tablet by mouth once daily. - apixaban (ELIQUIS) 5 mg tab(s) Take 1 tablet by mouth two times a day. - montelukast (SINGULAIR) 10 mg tablet Take 1 tablet by mouth daily at bedtime. - cetirizine (ZYRTEC) 10 mg tablet Take 1 tablet by mouth once daily. - atorvastatin (LIPITOR) 40 mg tablet Take 1 tablet by mouth once daily. - ipratropium bromide (ATROVENT) 42 mcg (0.06 %) nasal spray Use 2 Sprays in the nose four times a day as needed (nasal congestion and runny nose). - amLODIPine (NORVASC) 10 mg tablet Take 1 tablet by mouth once daily. - ipratropium-albuterol (DUONEB) 0.5 mg-3 mg(2.5 mg base)/3 mL nebu Inhale 3 mL as instructed every 6 hours as needed (wheezing/shortness of breath). - triamcinolone acetonide (NASACORT AQ) 55 mcg nasal inhaler Use 2 Sprays in each nostril once daily. - aspirin, enteric coated (ASPIRIN, ENTERIC COATED) 81 mg EC tablet Take 81 mg by mouth once daily. Problem List As Of Date 11/13/2024 Noted Resolved SOLITARY CYST OF BREAST [N60.09] 10/06/2006 DYSFUNCT EUSTACHIAN TUBE [H69.90] 10/23/2006 ALLERGIC RHINITIS NOS [J30.9] 10/23/2006 Asthma [J45.909] 10/23/2006 PANIC DISORDER WITHOUT AGORAPHOBIA [F41.0] 05/08/2007 (more content not included)... [facility] Telephone (INTMWS) DEBBIE MONTES I ([id number]) 1965 F Date Time Provider Department 11/08/24 KASHIF BERNARD INTMWS During your visit today, we recorded the following information about you: Arelis Conley LPN 11/08/2024 2:41 PM Signed Patient calling she is trying to get portable oxygen since she can not push a tank on wheels and use her walker at same time. Patient said she spoke to person at [email or web address] where her oxygen is from, need to fax order for portable oxygen concentrator with pulse dose setting and can use at 3 liters with activity. Fax to [phone]. Patient would like called when order has been faxed please. She has been trying to get this for few weeks now. Please advise Kashif Bernard MD 11/08/2024 7:07 PM Signed Tried to print order but not sure where it went and cannot choose a printer. Can someone print for me to sign? Mary Velazquez LPN 11/11/2024 1:27 PM Signed Order faxed to number below and patient notified Allergies As of Date: 11/08/2024 Noted Allergy Reaction SILVADENE (SILVER SULFADIAZINE) 09/08/2006 5 - Intolerance TETRACYCLINE 09/08/2006 8 - GI Upset AUGMENTIN (AMOXICILLIN-POT CLAVUL*02/08/2011 8 - GI Upset CYMBALTA (DULOXETINE) 04/14/2011 14 - Other: See Comments Comments: GI upset; poor appetite EFFEXOR XR (VENLAFAXINE) 05/10/2001 6 - Diarrhea Comments: Thinks maybe might be able to tolerate like Celexa after a while SUDAFED (PSEUDOEPHEDRINE) 11/15/2006 5 - Intolerance Comments: heart racing TRAMADOL 06/10/2013 8 - GI Upset VICODIN (HYDROCODONE-ACETAMIN OPHE*11/27/2006 9 - Itching 11 - Vomiting Comments: [place] very off balance; can take codeine WELLBUTRIN SR (BUPROPION) 05/08/2007 1 - Mental Status Change Comments: giulia NARANJOOFT (SERTRALINE HCL) 05/10/2001 6 - Diarrhea Date Reviewed: 10/26/2024 Reviewed by: Mary Velazquez LPN - Fully Assessed Reason for Visit: Orders [681] Primary Visit Diagnosis:Hypoxia [R09.02] Order(s):PORTABLE OXYGEN CONCENTRATOR [[id number]] Order #: [id number] Prescriptions as of 11/11/2024 - FINGER PULSE OXIMETER 1 each as needed. Home pulse ox --exertional hypoxia needing home oxygen. Check pulse ox as needed - Miscellaneous Medical Supply Overnight pulse oximetry on room air. Has hypoxia with exertion. Wakes up at night sometimes SOB. - zolpidem (AMBIEN) 5 mg tablet Take 1 tablet by mouth at bedtime as needed for up to 90 days. - pantoprazole DR (PROTONIX) 40 mg tablet Take 1 tablet by mouth once daily. - furosemide (LASIX) 20 mg tablet 1 daily as needed to manage swelling of feet and lower legs. - albuterol HFA (PROVENTIL HFA, VENTOLIN HFA) 90 mcg/actuation inhaler INHALE 2 PUFFS BY MOUTH EVERY 6 HOURS NEEDED FOR WHEEZING AND FOR SHORTNESS OF BREATH - diclofenac, EC, (VOLTAREN) 50 mg EC tablet Take 1 tablet by mouth three times a day as needed (Left SI joint pain). - tiotropium bromide (SPIRIVA RESPIMAT) 2.5 mcg/actuation inhaler Inhale 2 puffs as instructed once daily. inhale 2 puffs by mouth once daily - budesonide-formoterol (BREYNA) 160-4.5 mcg/actuation inhaler Inhale 2 puffs as instructed two times a day. - citalopram (CELEXA) 40 mg tablet Take 1 tablet by mouth once daily. - apixaban (ELIQUIS) 5 mg tab(s) Take 1 tablet by mouth two times a day. - montelukast (SINGULAIR) 10 mg tablet Take 1 tablet by mouth daily at bedtime. - cetirizine (ZYRTEC) 10 mg tablet Take 1 tablet by mouth once daily. - atorvastatin (LIPITOR) 40 mg tablet Take 1 tablet by mouth once daily. - ipratropium bromide (ATROVENT) 42 mcg (0.06 %) nasal spray Use 2 Sprays in the nose four times a day as needed (nasal congestion and runny nose). - amLODIPine (NORVASC) 10 mg tablet Take 1 tablet by mouth once daily. - ipratropium-albuterol (DUONEB) 0.5 mg-3 mg(2.5 mg base)/3 mL nebu Inhale 3 mL as instructed every 6 hours as needed (wheezing/shortness of breath). - triamcinolone acetonide (NASACORT AQ) 55 mcg nasal inhaler Use 2 Sprays in each nostril once daily. - aspirin, enteric coated (ASPIRIN, ENTERIC COATED) 81 mg EC tablet Take 81 mg by mouth once daily. Problem List As Of Date 11/08/2024 Noted Resolved SOLITARY CYST OF BREAST [N60.09] 10/06/2006 DYSFUNCT EUSTACHIAN TUBE [H69.90] 10/23/2006 ALLERGIC RHINITIS NOS [J30.9] 10/23/2006 Asthma [J45.909] 10/23/2006 PANIC DISORDER WITHOUT AGORAPHOBIA [F41.0] 05/08/2007 Reactive depression [F32.9] 05/08/2007 TENSION HEADACHE [G44.209] 05/08/2007 COMMON MIGRAINE W/O MENTN INTRACT [G43.009] 05/08/2007 Essential hypertension [I10] 11/27/2014 Tobacco use disorder [F17.200] Asthma-chronic obstructive pulmonary disease ov*04/03/2020 Mixed anxiety depressive disorder [F41.8] 04/03/2020 Acute pulmonary embolism without acute cor pulm*01/06/2021 Family history of thrombophlebitis [Z82.49] 06/07/2021 On continuous oral anticoag (more content not included)... [facility]INT[facility] DEBBIE MONTES I ([id number]) 1965 F Date Time Provider Department 10/29/24 KASHIF BERNARD During your visit today, we recorded the following information about you: Arelis Conley LPN 10/29/2024 10:19 AM Signed Moises from [facility] calling they do not sell Pulse oximeters for patients to use at home. She will notify the patient about this also. Yovanny Jones RN 10/29/2024 2:51 PM Signed Patient calls and message below reviewed. Patient will get pulse oximeter through [facility]. Yovanny Jones RN Allergies As of Date: 10/29/2024 Noted Allergy Reaction SILVADENE (SILVER SULFADIAZINE) 09/08/2006 5 - Intolerance TETRACYCLINE 09/08/2006 8 - GI Upset AUGMENTIN (AMOXICILLIN-POT CLAVUL*02/08/2011 8 - GI Upset CYMBALTA (DULOXETINE) 04/14/2011 14 - Other: See Comments Comments: GI upset; poor appetite EFFEXOR XR (VENLAFAXINE) 05/10/2001 6 - Diarrhea Comments: Thinks maybe might be able to tolerate like Celexa after a while SUDAFED (PSEUDOEPHEDRINE) 11/15/2006 5 - Intolerance Comments: heart racing TRAMADOL 06/10/2013 8 - GI Upset VICODIN (HYDROCODONE-ACETAMIN OPHE*11/27/2006 9 - Itching 11 - Vomiting Comments: [place] very off balance; can take codeine WELLBUTRIN SR (BUPROPION) 05/08/2007 1 - Mental Status Change Comments: felt stoned ZOLOFT (SERTRALINE HCL) 05/10/2001 6 - Diarrhea Date Reviewed: 10/26/2024 Reviewed by: Mary Velazquez LPN - Fully Assessed Reason for Visit: patient information [Other] Prescriptions as of 10/29/2024 - FINGER PULSE OXIMETER 1 each as needed. Home pulse ox --exertional hypoxia needing home oxygen. Check pulse ox as needed - Miscellaneous Medical Supply Overnight pulse oximetry on room air. Has hypoxia with exertion. Wakes up at night sometimes SOB. - zolpidem (AMBIEN) 5 mg tablet Take 1 tablet by mouth at bedtime as needed for up to 90 days. - pantoprazole DR (PROTONIX) 40 mg tablet Take 1 tablet by mouth once daily. - furosemide (LASIX) 20 mg tablet 1 daily as needed to manage swelling of feet and lower legs. - albuterol HFA (PROVENTIL HFA, VENTOLIN HFA) 90 mcg/actuation inhaler INHALE 2 PUFFS BY MOUTH EVERY 6 HOURS NEEDED FOR WHEEZING AND FOR SHORTNESS OF BREATH - diclofenac, EC, (VOLTAREN) 50 mg EC tablet Take 1 tablet by mouth three times a day as needed (Left SI joint pain). - tiotropium bromide (SPIRIVA RESPIMAT) 2.5 mcg/actuation inhaler Inhale 2 puffs as instructed once daily. inhale 2 puffs by mouth once daily - budesonide-formoterol (BREYNA) 160-4.5 mcg/actuation inhaler Inhale 2 puffs as instructed two times a day. - citalopram (CELEXA) 40 mg tablet Take 1 tablet by mouth once daily. - apixaban (ELIQUIS) 5 mg tab(s) Take 1 tablet by mouth two times a day. - montelukast (SINGULAIR) 10 mg tablet Take 1 tablet by mouth daily at bedtime. - cetirizine (ZYRTEC) 10 mg tablet Take 1 tablet by mouth once daily. - atorvastatin (LIPITOR) 40 mg tablet Take 1 tablet by mouth once daily. - ipratropium bromide (ATROVENT) 42 mcg (0.06 %) nasal spray Use 2 Sprays in the nose four times a day as needed (nasal congestion and runny nose). - amLODIPine (NORVASC) 10 mg tablet Take 1 tablet by mouth once daily. - ipratropium-albuterol (DUONEB) 0.5 mg-3 mg(2.5 mg base)/3 mL nebu Inhale 3 mL as instructed every 6 hours as needed (wheezing/shortness of breath). - triamcinolone acetonide (NASACORT AQ) 55 mcg nasal inhaler Use 2 Sprays in each nostril once daily. - aspirin, enteric coated (ASPIRIN, ENTERIC COATED) 81 mg EC tablet Take 81 mg by mouth once daily. Problem List As Of Date 10/29/2024 Noted Resolved SOLITARY CYST OF BREAST [N60.09] 10/06/2006 DYSFUNCT EUSTACHIAN TUBE [H69.90] 10/23/2006 ALLERGIC RHINITIS NOS [J30.9] 10/23/2006 Asthma [J45.909] 10/23/2006 PANIC DISORDER WITHOUT AGORAPHOBIA [F41.0] 05/08/2007 Reactive depression [F32.9] 05/08/2007 TENSION HEADACHE [G44.209] 05/08/2007 COMMON MIGRAINE W/O MENTN INTRACT [G43.009] 05/08/2007 Essential hypertension [I10] 11/27/2014 Tobacco use disorder [F17.200] Asthma-chronic obstructive pulmonary disease ov*04/03/2020 Mixed anxiety depressive disorder [F41.8] 04/03/2020 Acute pulmonary embolism without acute cor pulm*01/06/2021 Family history of thrombophlebitis [Z82.49] 06/07/2021 On continuous oral anticoagulation [Z79.01] 07/16/2021 Encounter Status:Closed by YOVANNY JONES on 10/29/24 [facility] Telephone (4CQ) DEBBIE MONTES I ([id number]) 1965 F Date Time Provider Department 10/29/24 KASHIF BERNARD 4CQ During your visit today, we recorded the following information about you: Brittnee Dickerson 10/29/2024 10:59 AM Signed Pt called asking for a Script for a water bottle that is for oxygen concentrator. She wanted it Faxed to fax number [phone], Sommer Dong . Please advice Yovanny Jones RN 10/29/2024 3:21 PM Signed Patient calls back and reports that the delivery levon was able to give her the water bottle for oxygen concentrator but there was no orders for the portable oxygen tanks. Patient asks that provider send another order so that she is able to get the portable tanks which is what she needs the most. Requests orders be faxed to [phone], [place]mer [place]. Orders written appear to include portable oxygen tanks. Call placed to [employer] and spoke to Viridiana who reports patient received 2 portable tanks that are about 2 feet tall with a cart. If patient wants smaller tanks they do not last as long and if she is requesting a portable oxygen concentrator then a new order would be needed. Call placed to patient and notified of above. Patient reports that she wants the small portable oxygen concentrator that she can carry with her as the portable tanks won't even fit in her small compact car. Patient aware that orders would be sent to [employer] and then they will run it through insurance to see if it would be covered. DIONY Harris Liza D, MD 10/31/2024 7:30 PM Signed Order printed Mary Velazquez LPN 11/01/2024 10:38 AM Signed order has been faxed to Letitia to number below Allergies As of Date: 10/29/2024 Noted Allergy Reaction SILVADENE (SILVER SULFADIAZINE) 09/08/2006 5 - Intolerance TETRACYCLINE 09/08/2006 8 - GI Upset AUGMENTIN (AMOXICILLIN-POT CLAVUL*02/08/2011 8 - GI Upset CYMBALTA (DULOXETINE) 04/14/2011 14 - Other: See Comments Comments: GI upset; poor appetite EFFEXOR XR (VENLAFAXINE) 05/10/2001 6 - Diarrhea Comments: Thinks maybe might be able to tolerate like Celexa after a while SUDAFED (PSEUDOEPHEDRINE) 11/15/2006 5 - Intolerance Comments: heart racing TRAMADOL 06/10/2013 8 - GI Upset VICODIN (HYDROCODONE-ACETAMIN OPHE*11/27/2006 9 - Itching 11 - Vomiting Comments: [place] very off balance; can take codeine WELLBUTRIN SR (BUPROPION) 05/08/2007 1 - Mental Status Change Comments: felt stoned ZOLOFT (SERTRALINE HCL) 05/10/2001 6 - Diarrhea Date Reviewed: 10/26/2024 Reviewed by: Mary Velazquez LPN - Fully Assessed Reason for Visit: Medication Problem [65] Primary Visit Diagnosis:Hypoxia [R09.02] Order(s):PORTABLE OXYGEN CONCENTRATOR [[id number]] Order #: [id number] Prescriptions as of 11/01/2024 - FINGER PULSE OXIMETER 1 each as needed. Home pulse ox --exertional hypoxia needing home oxygen. Check pulse ox as needed - Miscellaneous Medical Supply Overnight pulse oximetry on room air. Has hypoxia with exertion. Wakes up at night sometimes SOB. - zolpidem (AMBIEN) 5 mg tablet Take 1 tablet by mouth at bedtime as needed for up to 90 days. - pantoprazole DR (PROTONIX) 40 mg tablet Take 1 tablet by mouth once daily. - furosemide (LASIX) 20 mg tablet 1 daily as needed to manage swelling of feet and lower legs. - albuterol HFA (PROVENTIL HFA, VENTOLIN HFA) 90 mcg/actuation inhaler INHALE 2 PUFFS BY MOUTH EVERY 6 HOURS NEEDED FOR WHEEZING AND FOR SHORTNESS OF BREATH - diclofenac, EC, (VOLTAREN) 50 mg EC tablet Take 1 tablet by mouth three times a day as needed (Left SI joint pain). - tiotropium bromide (SPIRIVA RESPIMAT) 2.5 mcg/actuation inhaler Inhale 2 puffs as instructed once daily. inhale 2 puffs by mouth once daily - budesonide-formoterol (BREYNA) 160-4.5 mcg/actuation inhaler Inhale 2 puffs as instructed two times a day. - citalopram (CELEXA) 40 mg tablet Take 1 tablet by mouth once daily. - apixaban (ELIQUIS) 5 mg tab(s) Take 1 tablet by mouth two times a day. - montelukast (SINGULAIR) 10 mg tablet Take 1 tablet by mouth daily at bedtime. - cetirizine (ZYRTEC) 10 mg tablet Take 1 tablet by mouth once daily. - atorvastatin (LIPITOR) 40 mg tablet Take 1 tablet by mouth once daily. - ipratropium bromide (ATROVENT) 42 mcg (0.06 %) nasal spray Use 2 Sprays in the nose four times a day as needed (nasal congestion and runny nose). - amLODIPine (NORVASC) 10 mg tablet Take 1 tablet by mouth once daily. - ipratropium-albuterol (DUONEB) 0.5 mg-3 mg(2.5 mg base)/3 mL nebu Inhale 3 mL as instructed every 6 hours as needed (wheezing/shortness of breath). - triamcinolone acetonide (NASACORT AQ) 55 mcg nasal inhaler Use 2 Sprays in each nostril once daily. - aspirin, enteric coated (ASPIRIN, ENTERIC COATED) 81 mg EC tablet Take 81 mg by mouth once daily. Prob (more content not included)... Normal [facility] CNOVon 10-26-2024 CNOV Office Visit (INTMWS ) DEBBIE MONTES I ([id number]) 1965 F Date Time Provider Department 10/26/24 9:40 AM KASHIF BERNARD INTMWS During your visit today, we recorded the following information about you: Pulse Respiration Blood pressure Weight 99/minute 16/minute 132/60 73 kg Kashif Bernard MD 10/26/2024 12:28 PM Signed Subjective Debbie Montes is a 59 year old female. HPI SUBJECTIVE: Debbie Montes is a 59-year-old female with a history of severe COPD and asthma-COPD overlap syndrome, presenting with dyspnea on exertion. Debbie reports a recent worsening of dyspnea on exertion, noting that activities such as walking across a room or taking a shower cause significant shortness of breath. She does not have a home pulse oximeter. She denies waking up frequently with dyspnea but does experience a jolt upon waking and not sure whether was due to trouble with breathing. She keeps her inhalers in bed and uses them before getting up. She does not use CPAP (no diagnosis of MEKA). Has a nebulizer at home. Debbie is currently taking albuterol, Breztri, Cymbalta, ipratropium, DuoNeb, Singulair, and Spiriva. She has a follow-up appointment with her aerial installer, Dr. Maria Field, on December 17. Her most recent pulmonary function tests in June showed severe COPD and decreased diffusing capacity. 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 Current Outpatient Medications Medication Sig zolpidem (AMBIEN) 5 mg tablet Take 1 tablet by mouth at bedtime as needed for up to [address] (PROTONIX) 40 mg tablet Take 1 tablet by mouth once daily. furosemide (LASIX) 20 mg tablet 1 daily as needed to manage swelling of feet and lower legs. albuterol HFA (PROVENTIL HFA, VENTOLIN HFA) 90 mcg/actuation inhaler INHALE 2 PUFFS BY MOUTH EVERY 6 HOURS NEEDED FOR WHEEZING AND FOR SHORTNESS OF BREATH diclofenac, EC, (VOLTAREN) 50 mg EC tablet Take 1 tablet by mouth three times a day as needed (Left SI joint pain). tiotropium bromide (SPIRIVA RESPIMAT) 2.5 mcg/actuation inhaler Inhale 2 puffs as instructed once daily. inhale 2 puffs by mouth once daily budesonide-formoterol (BREYNA) 160-4.5 mcg/actuation inhaler Inhale 2 puffs as instructed two times a day. citalopram (CELEXA) 40 mg tablet Take 1 tablet by mouth once daily. apixaban (ELIQUIS) 5 mg tab(s) Take 1 tablet by mouth two times a day. montelukast (SINGULAIR) 10 mg tablet Take 1 tablet by mouth daily at bedtime. cetirizine (ZYRTEC) 10 mg tablet Take 1 tablet by mouth once daily. atorvastatin (LIPITOR) 40 mg tablet Take 1 tablet by mouth once daily. ipratropium bromide (ATROVENT) 42 mcg (0.06 %) nasal spray Use 2 Sprays in the nose four times a day as needed (nasal congestion and runny nose). amLODIPine (NORVASC) 10 mg tablet Take 1 tablet by mouth once daily. ipratropium-albuterol (DUONEB) 0.5 mg-3 mg(2.5 mg base)/3 mL nebu Inhale 3 mL as instructed every 6 hours as needed (wheezing/shortness of breath). triamcinolone acetonide (NASACORT AQ) 55 mcg nasal inhaler Use 2 Sprays in each nostril once daily. aspirin, enteric coated (ASPIRIN, ENTERIC COATED) 81 mg EC tablet Take 81 mg by mouth once daily. FINGER PULSE OXIMETER 1 each as needed. Home pulse ox --exertional hypoxia needing home oxygen. Check pulse ox as needed Miscellaneous Medical Supply Overnight pulse oximetry on room air. Has hypoxia with exertion. Wakes up at night sometimes SOB. No current facility-administered medications for this visit. Review of Systems Objective BP 132/60 Pulse 99 Resp 16 Wt 73 kg (160 lb 15 oz) LMP 02/19/2015 SpO2 96% BMI 27.62 kg/m? O2 % Room Air at Rest 96% O2 % Room Air During Ambulation 66% O2 Add Oxygen Liter Flow 2 LPM O2 % On Oxygen During Ambulation 95% Physical Exam Constitutional: Appearance: Normal appearance. HENT: Head: Normocephalic. Eyes: Conjunctiva/sclera: Conjunctivae normal. Cardiovascular: Rate and Rhythm: Normal rate and regular rhythm. Heart sounds: Normal heart sounds. Pulmonary: Effort: Pulmonary effort is normal. Breath sounds: Normal breath sounds. Musculoskeletal: Right lower leg: No edema. Left lower leg: No edema. Skin: General: Skin is warm and dry. Neurological: General: No focal deficit present. Mental Status: She is alert and oriented to person, place, and time. Psychiatric: Mood and A (more content not included)... Normal [facility] No Panel Informationon 08-06 IMPRESSION: Unremarkable sonographic exam of the upper abdomen. Proposal Manager: PSCB Transcribe Date/Time: Aug 06 2024 1:48P Dictated by : TG RUFF MD This examination was interpreted and the report reviewed and electronically signed by: TG RUFF MD on Aug 06 2024 1:50PM [facility] DIVISION OF RADIOLOGY No Panel InformationOrdered By: [facility] Provider on 08-06-2024 [facility] US ABD RIGHT UPPER QUADRANTo n 07-01-2025 US ABD RIGHT UPPER QUADRANT * * *Final Report* * * DATE OF EXAM: Aug 06 2024 11:54AM WRU 1032 - US ABD RIGHT UPPER QUADRANT / PROCEDURE REASON: Elevated alkaline phosphatase level * * * * Physician Interpretation * * * * EXAM TITLE: US ABD RIGHT UPPER QUADRANT, US ABD SPLEEN -NB HISTORY: Abnormal liver enzyme. TECHNIQUE: Sonography of the right upper quadrant and spleen was performed. Images were obtained and stored in a permanent archive. MQ: URUQ_1 COMPARISON: None. RESULT: Pancreas: Normal sonographic appearance in the visualized portions. Portions obscured: tail Liver: Echotexture: Normal, homogeneous. Echogenicity: Normal Surface contour: Smooth Lesions: None. MPV: Patent. Biliary: No intrahepatic biliary duct dilation. CBD: 3 mm in diameter. Gallbladder: Normal caliber -Contents: No cholelithiasis -Wall: 1 mm in thickness -Other: Negative sonographic Denise sign. Kidneys: Within normal limits. Spleen: The spleen is normal in size, measuring 7.1 cm. No mass lesion identified. IMPRESSION: Unremarkable sonographic exam of the upper abdomen. Proposal Manager: [employer] Transcribe Date/Time: Aug 06 2024 1:48P Dictated by : TG RUFF MD This examination was interpreted and the report reviewed and electronically signed by: TG RUFF MD on Aug 06 2024 1:50PM EST [id number] Normal [facility] US ABD SPLEEN - NBon 025 * * *Final Report* * * DATE OF EXAM: Aug 06 2024 11:54AM WRU 1232 - US ABD SPLEEN -NB / PROCEDURE REASON: Elevated alkaline phosphatase level * * * * Physician Interpretation * * * * EXAM TITLE: US ABD RIGHT UPPER QUADRANT, US ABD SPLEEN -NB HISTORY: Abnormal liver enzyme. TECHNIQUE: Sonography of the right upper quadrant and spleen was performed. Images were obtained and stored in a permanent archive. MQ: URUQ_1 COMPARISON: None. RESULT: Pancreas: Normal sonographic appearance in the visualized portions. Portions obscured: tail Liver: Echotexture: Normal, homogeneous. Echogenicity: Normal Surface contour: Smooth Lesions: None. MPV: Patent. Biliary: No intrahepatic biliary duct dilation. CBD: 3 mm in diameter. Gallbladder: Normal caliber -Contents: No cholelithiasis -Wall: 1 mm in thickness -Other: Negative sonographic Denise sign. Kidneys: Within normal limits. Spleen: The spleen is normal in size, measuring 7.1 cm. No mass lesion identified. DIVISION OF RADIOLOGY Provider, [facility] - 08/06/2024 * * *Final Report* * * DATE OF EXAM: Aug 06 2024 11:54AM WRU 1232 - US ABD SPLEEN -NB / PROCEDURE REASON: Elevated alkaline phosphatase level * * * * Physician Interpretation * * * * EXAM TITLE: US ABD RIGHT UPPER QUADRANT, US ABD SPLEEN -NB HISTORY: Abnormal liver enzyme. TECHNIQUE: Sonography of the right upper quadrant and spleen was performed. Images were obtained and stored in a permanent archive. MQ: URUQ_1 COMPARISON: None. RESULT: Pancreas: Normal sonographic appearance in the visualized portions. Portions obscured: tail Liver: Echotexture: Normal, homogeneous. Echogenicity: Normal Surface contour: Smooth Lesions: None. MPV: Patent. Biliary: No intrahepatic biliary duct dilation. CBD: 3 mm in diameter. Gallbladder: Normal caliber -Contents: No cholelithiasis -Wall: 1 mm in thickness -Other: Negative sonographic Denise sign. Kidneys: Within normal limits. Spleen: The spleen is normal in size, measuring 7.1 cm. No mass lesion identified. IMPRESSION IMPRESSION: Unremarkable sonographic exam of the upper abdomen. Proposal Manager: [facility] Transcribe Date/Time: Aug 06 2024 1:48P Dictated by : TG RUFF MD This examination was interpreted and the report reviewed and electronically signed by: TG RUFF MD on Aug 06 2024 1:50PM EST [facility] Radiology Study observation (narrative) [facility] US ABD SPLEEN -NBon 08-07-19 US ABD SPLEEN -NB * * *Final Report* * * DATE OF EXAM: Aug 06 2024 11:54AM WRU 1232 - US ABD SPLEEN -NB / PROCEDURE REASON: Elevated alkaline phosphatase level * * * * Physician Interpretation * * * * EXAM TITLE: US ABD RIGHT UPPER QUADRANT, US ABD SPLEEN -NB HISTORY: Abnormal liver enzyme. TECHNIQUE: Sonography of the right upper quadrant and spleen was performed. Images were obtained and stored in a permanent archive. MQ: URUQ_1 COMPARISON: None. RESULT: Pancreas: Normal sonographic appearance in the visualized portions. Portions obscured: tail Liver: Echotexture: Normal, homogeneous. Echogenicity: Normal Surface contour: Smooth Lesions: None. MPV: Patent. Biliary: No intrahepatic biliary duct dilation. CBD: 3 mm in diameter. Gallbladder: Normal caliber -Contents: No cholelithiasis -Wall: 1 mm in thickness -Other: Negative sonographic Denise sign. Kidneys: Within normal limits. Spleen: The spleen is normal in size, measuring 7.1 cm. No mass lesion identified. IMPRESSION: Unremarkable sonographic exam of the upper abdomen. Proposal Manager: PSCB Transcribe Date/Time: Aug 06 2024 1:48P Dictated by : TG RUFF MD This examination was interpreted and the report reviewed and electronically signed by: TG RUFF MD on Aug 06 2024 1:50PM EST [id number] Normal [facility] US Abdomen RUQon 08-06-2024 * * *Final Report* * * DATE OF EXAM: Aug 06 2024 11:54AM WRU 1032 - US ABD RIGHT UPPER QUADRANT / PROCEDURE REASON: Elevated alkaline phosphatase level * * * * Physician Interpretation * * * * EXAM TITLE: US ABD RIGHT UPPER QUADRANT, US ABD SPLEEN -NB HISTORY: Abnormal liver enzyme. TECHNIQUE: Sonography of the right upper quadrant and spleen was performed. Images were obtained and stored in a permanent archive. MQ: URUQ_1 COMPARISON: None. RESULT: Pancreas: Normal sonographic appearance in the visualized portions. Portions obscured: tail Liver: Echotexture: Normal, homogeneous. Echogenicity: Normal Surface contour: Smooth Lesions: None. MPV: Patent. Biliary: No intrahepatic biliary duct dilation. CBD: 3 mm in diameter. Gallbladder: Normal caliber -Contents: No cholelithiasis -Wall: 1 mm in thickness -Other: Negative sonographic Denise sign. Kidneys: Within normal limits. Spleen: The spleen is normal in size, measuring 7.1 cm. No mass lesion identified. DIVISION OF RADIOLOGY Provider, [facility] * * *Final Report* * * DATE OF EXAM: Aug 06 2024 11:54AM WRU 1032 - US ABD RIGHT UPPER QUADRANT / PROCEDURE REASON: Elevated alkaline phosphatase level * * * * Physician Interpretation * * * * EXAM TITLE: US ABD RIGHT UPPER QUADRANT, US ABD SPLEEN -NB HISTORY: Abnormal liver enzyme. TECHNIQUE: Sonography of the right upper quadrant and spleen was performed. Images were obtained and stored in a permanent archive. MQ: URUQ_1 COMPARISON: None. RESULT: Pancreas: Normal sonographic appearance in the visualized portions. Portions obscured: tail Liver: Echotexture: Normal, homogeneous. Echogenicity: Normal Surface contour: Smooth Lesions: None. MPV: Patent. Biliary: No intrahepatic biliary duct dilation. CBD: 3 mm in diameter. Gallbladder: Normal caliber -Contents: No cholelithiasis -Wall: 1 mm in thickness -Other: Negative sonographic Denise sign. Kidneys: Within normal limits. Spleen: The spleen is normal in size, measuring 7.1 cm. No mass lesion identified. IMPRESSION IMPRESSION: Unremarkable sonographic exam of the upper abdomen. Proposal Manager: GARY Transcribe Date/Time: Aug 06 2024 1:48P Dictated by : TG RUFF MD This examination was interpreted and the report reviewed and electronically signed by: TG RUFF MD on Aug 06 2024 1:50PM [facility] Radiology Study observation (narrative) Ugo shearer [facility] CNOVon 08-05-2024 CNOV Office Visit (INTMWS ) DEBBIE MONTES I ([id number]) 1965 F Date Time Provider Department 08/05/24 1:40 PM KASHIF BERNARD INTMWS During your visit today, we recorded the following information about you: Pulse Respiration Blood pressure Weight 98/minute 16/minute 113/71 74 kg Kashif Bernard MD 09/03/2024 12:23 AM Signed This note was created using NoteWriter. Subjective Debbie Montes is a 59 year old female. 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 Current Outpatient Medications Medication Sig zolpidem (AMBIEN) 5 mg tablet Take 1 tablet by mouth at bedtime as needed for up to 90 days. furosemide (LASIX) 20 mg tablet 1 daily as needed to manage swelling of feet and lower legs. tiotropium bromide (SPIRIVA RESPIMAT) 2.5 mcg/actuation inhaler Inhale 2 puffs as instructed once daily. inhale 2 puffs by mouth once daily budesonide-formoterol (BREYNA) 160-4.5 mcg/actuation inhaler Inhale 2 puffs as instructed two times a day. citalopram (CELEXA) 40 mg tablet Take 1 tablet by mouth once daily. apixaban (ELIQUIS) 5 mg tab(s) Take 1 tablet by mouth two times a day. montelukast (SINGULAIR) 10 mg tablet Take 1 tablet by mouth daily at bedtime. cetirizine (ZYRTEC) 10 mg tablet Take 1 tablet by mouth once daily. atorvastatin (LIPITOR) 40 mg tablet Take 1 tablet by mouth once daily. pantoprazole DR (PROTONIX) 40 mg tablet Take 1 tablet by mouth once daily. ipratropium bromide (ATROVENT) 42 mcg (0.06 %) nasal spray Use 2 Sprays in the nose four times a day as needed (nasal congestion and runny nose). amLODIPine (NORVASC) 10 mg tablet Take 1 tablet by mouth once daily. ipratropium-albuterol (DUONEB) 0.5 mg-3 mg(2.5 mg base)/3 mL nebu Inhale 3 mL as instructed every 6 hours as needed (wheezing/shortness of breath). triamcinolone acetonide (NASACORT AQ) 55 mcg nasal inhaler Use 2 Sprays in each nostril once daily. aspirin, enteric coated (ASPIRIN, ENTERIC COATED) 81 mg EC tablet Take 81 mg by mouth once daily. albuterol HFA (PROVENTIL HFA, VENTOLIN HFA) 90 mcg/actuation inhaler INHALE 2 PUFFS BY MOUTH EVERY 6 HOURS NEEDED FOR WHEEZING AND FOR SHORTNESS OF BREATH diclofenac, EC, (VOLTAREN) 50 mg EC tablet Take 1 tablet by mouth three times a day as needed (Left SI joint pain). No current facility-administered medications for this visit. Review of Systems Objective BP 113/71 Pulse 98 Resp 16 Wt 74 kg (163 lb 2.3 oz) LMP 02/19/2015 BMI 28.00 kg/m? Last 5 Encounter Wt Readings: Date: Wt: 08/05/2024 74 kg (163 lb 2.3 oz) 07/18/2024 74.4 kg (164 lb) 06/13/2024 73 kg (161 lb) 06/13/2024 73 kg (161 lb) 02/06/2024 73 kg (160 lb 15 oz) No waist measurement recorded Estimated body mass index is 28 kg/m? as calculated from the following: Height as of 07/18/24: 162.6 cm (5' 4). Weight as of this encounter: 74 kg (163 lb 2.3 oz). Last 5 Encounter BP Readings: Date: BP: 08/05/2024 113/71 07/18/2024 126/79 06/13/2024 112/78 02/06/2024 120/71 02/02/2024 108/60 Physical Exam Constitutional: Appearance: Normal appearance. HENT: Head: Normocephalic. Eyes: Conjunctiva/sclera: Conjunctivae normal. Cardiovascular: Rate and Rhythm: Normal rate and regular rhythm. Heart sounds: Normal heart sounds. Pulmonary: Effort: Pulmonary effort is normal. Breath sounds: Normal breath sounds. Musculoskeletal: Right lower leg: No edema. Left lower leg: No edema. Skin: General: Skin is warm and dry. Neurological: General: No focal deficit present. Mental Status: She is alert and oriented to person, place, and time. Psychiatric: Mood and Affect: Mood normal. Behavior: Behavior normal. Thought Content: Thought content normal. Judgment: Judgment normal. Assessment and Plan # Chronic left SI joint pain (M53.3) - Pain localized to the mid-buttocks region, consistent with sacroiliac joint involvement; onset since June. - Previous use of topical analgesics (Biofreeze), heat, and cold compresses provided minimal relief. - Discussed and prescribed diclofenac 50 mg orally up to three times daily as needed; advised to take with food to minimize gastrointestinal side effects. - Educated on risks and benefits of NSAID use, especially considering concurrent Eliquis therapy. - Demonstrated and instructed on specific stretching exercises to alleviate tension in the sacroiliac region. (more content not included)... Normal [facility] ALKALINE PHOSPHATASE ISOENZY MES (P)on 07-18-2024 ALK PHOS BONE % 17.3 % Normal 10.7-68.3 [facility] Comment on above: Order Comment: Speci men Type: BLOOD SPECIMENOrdering Facility: [facility] Address: [address] [place] [address] Performed By: #### A LKISOP ####[facility] [id number] [place] [address] [place] ALK PHOS LIVER % 82.7 % Normal 26.0-86.2 [facility] Comment on above: Order Comment: Speci men Type: BLOOD SPECIMENOrdering Facility: [facility] Address: [address] [place] [address] Performed By: #### A LKISOP ####[facility] [id number] [place] [address] [place] BONE FRACTION 32.2 U/L Normal 12.9-52.6 [facility] Comment on above: Order Comment: Speci men Type: BLOOD SPECIMENOrdering Facility: [facility] Address: [address] [place] [address] Performed By: #### A LKISOP ####[facility] [id number] [place] [address] [place] INTESTINE FRACTION 0.0 U/L Normal 0.0-16.3 [facility] Comment on above: Order Comment: Speci men Type: BLOOD SPECIMENOrdering Facility: [facility] Address: [address] [place] [address] Performed By: #### A LKISOP ####[facility] [id number] [place] [address] [place] LIVER FRACTION 153.8 U/L High 16.0-69.3 [facility] Comment on above: Order Comment: Speci men Type: BLOOD SPECIMENOrdering Facility: [facility] Address: [address] [place] [address] Performed By: #### A LKISOP ####[facility] [id number] [place] [address] [place] Neutrophils/100 WBC (Bld) 0.0 % Normal 0.0-24.2 [facility] Comment on above: Order Comment: Speci men Type: BLOOD SPECIMENOrdering Facility: [facility] Address: [address] [place] [address] Performed By: #### A LKISOP ####[facility] [id number] [place] [address] [place] ALP SerPl-cCncon 07-18-2024 ALP [Catalytic activity/Vol] 186 U/L High 34-123 [facility] Comment on above: Order Comment: Speci men Type: BLOOD SPECIMENOrdering Facility: [facility] Address: [address] [place] [address] Performed By: #### 6 768-6 ####[facility] [id number] [place] [address] [place]#### 11908-0 ####[facility] [id number] [place] [id number] [place] [facility] [id number] [place] [address] [place] CBC panel Auto (Bld)on 07-18 Erythrocyte distribution width (RBC) [Ratio] 13.5 % Normal 11.5-15.0 [facility] Comment on above: Order Comment: Speci men Type: BLOOD SPECIMENOrdering Facility: [facility] Address: [address] [place] [address] Performed By: #### 5 8410-2 ####[facility] [id number] [place] [address] [place] Hematocrit (Bld) [Volume fraction] 38.4 % Normal 36.0-46.0 [facility] Comment on above: Order Comment: Speci men Type: BLOOD SPECIMENOrdering Facility: [facility] Address: [address] [place] [address] Performed By: #### 5 8410-2 ####[facility]ITALNCBRIGH[facility] [id number] [place] [address] [place] Hemoglobin (Bld) [Mass/Vol] 12.5 g/dL Normal 11.5-15.5 [facility] Comment on above: Order Comment: Speci men Type: BLOOD SPECIMENOrdering Facility: [facility] Address: [address] [place] [address] Performed By: #### 5 8410-2 ####[facility]ITALNCLIA [id number] [place] [address] [place] MCH (RBC) [Entitic mass] 28.8 pg Normal 26.0-34.0 [facility] Comment on above: Order Comment: Speci men Type: BLOOD SPECIMENOrdering Facility: [facility] Address: [address] [place] [address] Performed By: #### 5 8410-2 ####[facility]ITALN[facility] [id number] [place] [address] [place] MCHC (RBC) [Mass/Vol] 32.6 g/dL Normal 30.5-36.0 [facility] Comment on above: Order Comment: Speci men Type: BLOOD SPECIMENOrdering Facility: [facility] Address: [address] [place] [address] Performed By: #### 5 8410-2 ####[facility] [id number] [place] [address] [place] MCV (RBC) [Entitic vol] 88.5 fL Normal 80.0-100.0 [facility] [place] Comment on above: Order Comment: Speci men Type: BLOOD SPECIMENOrdering Facility: [facility] Address: [address] [place] [address] Performed By: #### 5 8410-2 ####[facility] [id number] [place] [address] [place] Nucleated RBC (Bld) [#/Vol] 10*3/uL Normal <0.01 [facility] Comment on above: Order Comment: Speci men Type: BLOOD SPECIMENOrdering Facility: [facility] Address: [address] [place] [address] Performed By: #### 5 8410-2 ####[facility] [id number] [place] [address] [place] Platelet mean volume (Bld) [Entitic vol] 9.3 fL Normal 9.0-12.7 [facility] Comment on above: Order Comment: Speci men Type: BLOOD SPECIMENOrdering Facility: [facility] Address: [address] [place] [address] Performed By: #### 5 8410-2 ####[facility]ITALNCLIA [id number] [place] [address] [place] Platelets (Bld) [#/Vol] 329 10*3/uL Normal 150-400 [facility] Comment on above: Order Comment: Speci men Type: BLOOD SPECIMENOrdering Facility: [facility] Address: [address] [place], [place] [address] Performed By: #### 5 8410-2 ####[facility]STITUTEWNCLIA [id number] [place] [address] [place] RBC (Bld) [#/Vol] 4.34 10*6/uL Normal 3.90-5.20 [facility] Comment on above: Order Comment: Speci men Type: BLOOD SPECIMENOrdering Facility: [facility] Address: [address] [place] [address] Performed By: #### 5 8410-2 ####[facility]ITALNCLIA [id number] [place] [address] [place] WBC (Bld) [#/Vol] 8.31 10*3/uL Normal 3.70-11.00 [facility] Comment on above: Order Comment: Speci men Type: BLOOD SPECIMENOrdering Facility: [facility] Address: [address] [place], [place] [address] [address] Performed By: #### 5 8410-2 ####[facility]ITALNCLIA [id number] [address] [place] CNOVon 07-18-2024 CNOV Office Visit (PULMWS ) DEBBIE MONTES I ([id number]) 1965 F Date Time Provider Department 07/18/24 1:30 PM DANGELO MAST PULEDGAR During your visit today, we recorded the following information about you: Pulse Blood pressure Weight Height 91/minute 126/79 74.4 kg 1.626 m Dangelo Mast APRN.CNP 07/19/2024 5:18 PM Signed LUNG SCREENING ANNUAL VISIT PRIMARY CARE PHYSICIAN: Kashif Bernard MD PULMONARY PROVIDER: Dr. Caitlyn Field Results will be communicated via letter or electronic record if applicable. Visit Delivery: In Person Patient Visit Type: established Current or Ex-smoker? ex Exam Type: annual LDCT Number of Pack Years: 42 Current smoker (=0) or Number of Years since Quit: 2 The patient's smoking history is similar to prior year shared decision visit. The reason for the discrepancy is NA Chief Complaint: Established patient in lung cancer screening program here for annual follow-up. Impression / Recommendations Debbie Montes presents for annual lung cancer screening annual exam and nodule evaluation. Plan: Indeterminate pulmonary nodules: Previously identified nodules appear stable and no new nodules of concern were seen on the exam. Low dose CT Scan to be repeated in one year. Plan subject to change pending final radiology report and recommendations. Nature of the lung nodule(s) and the options for further evaluation discussed in detail with patient. Debbie Montes expressed understanding and is in agreement with plan. 2. Encounter for screening for malignant neoplasm of respiratory organs I have determined that the patient is eligible for continued low dose CT screening based on age, absence of signs or symptoms of lung cancer, smoking history and total pack years. The patient was counseled on the importance of adherence to annual LDCT lung cancer screening, impact of comorbidities and ability or willingness to undergo diagnosis and treatment. The patient understands and feels comfortable with it: Yes. 3. Nicotine Dependence The patient was counseled on the importance of maintaining cigarette smoking abstinence - The patient is committed to remaining abstinent from tobacco. Dangelo Mast, [facility] July 18, 2024 1:25 PM History of Present Illness: Debbie Montes is a 59 year old female who is presenting today for annual lung cancer screening LDCT and nodule surveillance/manageme nt. Patient has multiple nodules found on previous lung cancer screening LDCT. Last LDCT was performed on 03/15/2022 and was LUNG RADS Category 2. Previous potentially significant incidental findings on imaging: None. Patient is a former smoker with a 42 pack year history. Patient quit smoking 2 years ago at age 57 . Patient will continue to be eligible for lung cancer screening until age 78. The patient does not have any symptoms or signs of lung cancer. Patient has SOB with their daily activity. Wheezing. Patient denies feeling of chest tightness/congestion in the chest. Patient does not have a new or concerning cough, and denies hemoptysis. Patient does have a chronic daily cough. Denies regular or recent fevers/chills. Patient does not have any significant unintentional weight loss. Patient denies having any respiratory infections or COVID-19 in the past few months. Modified Medical Research Stebbins Dyspnea Scale (MMRC) I am too breathless to leave the house or I am breathless when dressing 4 Last 12 Encounter Wt Readings: Date: Wt: 07/18/2024 74.4 kg (164 lb) 06/13/2024 73 kg (161 lb) 06/13/2024 73 kg (161 lb) 02/06/2024 73 kg (160 lb 15 oz) 02/02/2024 73.7 kg (162 lb 7.7 oz) 07/21/2023 75.8 kg (167 lb) 04/10/2023 75.3 kg (166 lb) 03/06/2023 73.9 kg (163 lb) 02/10/2023 73.9 kg (163 lb) 02/10/2023 74.2 kg (163 lb 9.6 oz) 12/07/2022 75.3 kg (166 lb) 08/05/2022 74.8 kg (165 lb) Social History Tobacco Use: Types: Cigarettes Past Medical History: PAST MEDICAL HISTORY Diagnosis Date Allergic rhinitis, cause unspecified 10/23/2006 Anticardiolipin antibody positive COPD (chronic obstructive pulmonary disease) (HCC) COPD (chronic obstructive pulmonary disease) (HCC) Heterozygous factor V Leiden mutation (HCC) 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 Family Hx: FAMILY HISTORY Problem Relation Age of Onset Heart Mother Hypertension Mother Diabetes Mother COPD Mother Developed before she . She never smoked. other (Macular degeneration) Mother other (Cataracts) Mother Emphysema Father Hypertension Sister (more content not included)... Normal [facility] CT LUNG SCREEN WO IVCONon CT LUNG SCREEN WO IVCON * * *Final Repor t* * * DATE OF EXAM: Jul 18 2024 11:57AM [facility] 0562 - CT LUNG SCREEN WO IVCON / PROCEDURE REASON: multiple diagnoses * * * * Physician Interpretation * * * * EXAMINATION: CHEST CT WITHOUT CONTRAST (LOW-DOSE CT LUNG CANCER SCREENING PROTOCOL) CLINICAL HISTORY: Lung cancer LDCT screening ? absence of signs or symptoms of lung cancer. Personal history of nicotine dependence. Subsequent (annual) Technique: Spiral CT acquisition of the chest from the thoracic inlet to the upper abdomen without contrast. MQ: CTLCS_6 Patient characteristics: * Uqrs-ho-Huvbh: 1965; Age at exam: 59 years * Gender: Female * Lung Disease: Asymptomatic (no signs or symptoms of lung disease) * Number of Pack Years: 42 * Current smoker (=0) or Number of Years since Quit: 2 * Ordering provider and NPI: DANGELO MAST [id number] * Interpreting radiologist and NPI: Vinny [id number] Exam acquisition parameters: * Exam Date: 07/18/2024 11:57 AM * Site: [facility] * * CT System Pitch Flaker: Siemens * CT System Model: Sensation * Tube Current-Time (mA-sec): 25 * Peak Voltage (kV): 120V * Scan Time (sec): 11.57 * Scan Volume (z-length, cm): -30.90 * Pitch: 0.75 * Slice Thickness (mm): 1.5 * CT Dose-Length Product: 87 mGy*cm * CT Dose Index: 1.94mGy * CT Dose Reduction Method: Automated exposure control(AEC) and iterative recon COMPARISON: Prior lung screen dated 03/15/2022 RESULT: Are nodules present? Yes, 1-5 nodules Lung nodule comments: 3 mm left lower lobe nodule (245) unchanged. 3 mm left lower lobe nodule (197) unchanged. 3 mm right upper lobe nodule and 47) unchanged. Other findings: Moderate coronary calcifications. Minimal degenerative changes of the thoracic spine. Mild bronchial thickening and upper lobe predominant moderate emphysema with scattered linear opacities likely atelectasis. Incidental coronary calcium as automatically processed and calculated using AI: Total Coronary Calcium Score = [1-99] Agatston Units Percentile Rank (age and gender matched relative to reference population): [75th-100th] percentile* [* [email or web address]-nhlb i.org/calcium/input.[email or web address] spx] IMPRESSION: LungRADS category: 2 LungRADS modifier: None LungRADS 0 reason: n/a Recommendations: Continue annual screening with LDCT in 12 months. Reference: [employer]. Lung CT Screening Reporting and Data System (Lung-RADS). Available at: http://www.acr.org/Qu ality-Safety/Resource s/LungRADS Proposal Manager: PSCB Transcribe Date/Time: Jul 19 2024 3:01P Dictated by : MAJOR MCGOWAN MD This examination was interpreted and the report reviewed and electronically signed by: MAJOR MCGOWAN MD on Jul 19 2024 3:05PM EST [id number] Normal [facility] Comprehensive metabolic 2000 panelon 07-18-2024 Albumin [Mass/Vol] 4.2 g/dL Normal 3.9-4.9 [facility] Comment on above: Order Comment: Orly spence Type: BLOOD SPECIMENOrdering Facility: [facility] Address: [address] [place] [address] Performed By: #### 1 9123-9, 06156-6 ####[facility] CENTRALGALL[facility]O [id number] [place] [address] [place] ALP [Catalytic activity/Vol] 170 U/L High 34-123 [facility] Comment on above: Order Comment: Speci men Type: BLOOD SPECIMENOrdering Facility: [facility] Address: [address] [place] [address] Performed By: #### 1 9123-9, 14914-9 ####[facility] [place] [id number] [place] [address] [place] ALT [Catalytic activity/Vol] 13 U/L Normal 7-38 [facility] Comment on above: Order Comment: Speci men Type: BLOOD SPECIMENOrdering Facility: [facility] Address: [address] [place] [address] Performed By: #### 1 9123-9, 91386-9 ####[facility] ERIBERTOMaryNCLIA [id number] [place] [address] [place] Anion gap [Moles/Vol] 16 mmol/L High 8-15 [facility] Comment on above: Order Comment: Speci men Type: BLOOD SPECIMENOrdering Facility: [facility] Address: [address] [place] [address] Performed By: #### 1 9123-9, 51080-0 ####[facility] ERIBERTOSANDRITAA [id number] [place] [address] [place] AST [Catalytic activity/Vol] 14 U/L Normal 13-35 [facility] Comment on above: Order Comment: Speci men Type: BLOOD SPECIMENOrdering Facility: [facility] Address: [address] [place] [address] Performed By: #### 1 9123-9, 91182-6 ####[facility]ITALNCLIA [id number] [place] [address] [place] Bilirubin [Mass/Vol] 0.4 mg/dL Normal 0.2-1.3 [facility] Comment on above: Order Comment: Speci men Type: BLOOD SPECIMENOrdering Facility: [facility] Address: [address] [place] [address] Performed By: #### 1 9123-9, 08105-3 ####[facility] BILL MILLTOWNCLIA [id number] [place] [address] [place] Calcium [Mass/Vol] 9.0 mg/dL Normal 8.5-10.2 [facility] Comment on above: Order Comment: Speci men Type: BLOOD SPECIMENOrdering Facility: [facility] Address: [address] [place] [address] Performed By: #### 1 9123-9, 29239-2 ####[facility] MILLTOWNCLIA [id number] [place] [address] [place] Chloride [Moles/Vol] 100 mmol/L Normal 98-107 [facility] Comment on above: Order Comment: Speci men Type: BLOOD SPECIMENOrdering Facility: [facility] Address: [address] [place] [address] Performed By: #### 1 9123-9, 10147-3 ####[facility] MILLEMELYNWNCLIA [id number] [place] [address] [place] CO2 [Moles/Vol] 25 mmol/L Normal 22-30 [facility] Comment on above: Order Comment: Speci men Type: BLOOD SPECIMENOrdering Facility: [facility] Address: [address] [place] [address] Performed By: #### 1 9123-9, 98219-3 ####[facility] MILLTOWNCLIA [id number] [place] [address] [place] Creatinine [Mass/Vol] 0.79 mg/dL Normal 0.58-0.96 [facility] Comment on above: Order Comment: Speci men Type: BLOOD SPECIMENOrdering Facility: [facility] Address: [address] [place] [address] Performed By: #### 1 9123-9, 18417-0 ####[facility] MILLTOWHIROLIA [id number] [place] [address] [place] Creatinine and Glomerular filtration rate.predicted panel (S/P/Bld) 87 mL/min/1.73m??? Normal >=60 [facility] Comment on above: Order Comment: Orly spence Type: BLOOD SPECIMENOrdering Facility: [facility] Address: [address] [place] [address] Result Comment: Christine mated Glomerular Filtration Rate (eGFR) is calculated using the 2020 CKD-EPI creatinine equation. This equation utilizes serum creatinine, sex, and age as parameters. The creatinine assay has traceable calibration to isotope dilution-mass spectrometry. Refer to KDIGO guidelines for clinical interpretation. In patients with unstable renal function, e.g. those with acute kidney injury, the eGFR may not accurately reflect actual GFR. Performed By: #### 1 9123-9, 40592-3 ####[facility] [id number] [place] [address] [place] Glucose [Mass/Vol] 111 mg/dL High 74-99 [facility] Comment on above: Order Comment: Orly spence Type: BLOOD SPECIMENOrdering Facility: [facility] Address: [address] [place] [address] Result Comment: The [place] Diabetes Association (ADA) provides guidance for cutoff values for fasting glucose and random glucose. The ADA defines fasting as no caloric intake for at least 8 hours. Fasting plasma glucose results between 100 to 125 mg/dL indicate increased risk for diabetes (prediabetes). Fasting plasma glucose results greater than or equal to 126 mg/dL meet the criteria for diagnosis of diabetes. In the absence of unequivocal hyperglycemia, results should be confirmed by repeat testing. In a patient with classic symptoms of hyperglycemia or hyperglycemic crisis, random plasma glucose results greater than or equal to 200 mg/dL meet the criteria for diagnosis of diabetes. Reference: Standards of Medical Care in Diabetes 2016, [place] Diabetes Association. Diabetes Care. 2016.39(Suppl 1). Performed By: #### 1 9123-9, 83037-1 ####[facility] [id number] [place] [address] [place] Potassium [Moles/Vol] 3.9 mmol/L Normal 3.7-5.1 [facility] Comment on above: Order Comment: Speci men Type: BLOOD SPECIMENOrdering Facility: [facility] Address: [address] [place] [address] Performed By: #### 1 9123-9, 29114-0 ####[facility] MILLABHILASH [id number] [place] [address] [place] Protein [Mass/Vol] 6.8 g/dL Normal 6.3-8.0 [facility] Comment on above: Order Comment: Speci men Type: BLOOD SPECIMENOrdering Facility: [facility] Address: [address] [place] [address] Performed By: #### 1 9123-9, 67838-7 ####[facility] [id number] [place] [address] [place] Sodium [Moles/Vol] 141 mmol/L Normal 136-144 [facility] Comment on above: Order Comment: Speci men Type: BLOOD SPECIMENOrdering Facility: [facility] Address: [address] [place] [address] Performed By: #### 1 9123-9, 57319-1 ####[facility] ROSA [id number] [place] [address] [place] Urea nitrogen [Mass/Vol] 10 mg/dL Normal 7-21 [facility] Comment on above: Order Comment: Speci men Type: BLOOD SPECIMENOrdering Facility: [facility] Address: [address] [place] [address] Performed By: #### 1 9123-9, 47268-5 ####[facility]OL[facility]CL[facility] [id number] [place] [address] [place] HbA1c (Bld)on 07-18-2024 Average glucose Estimated from glycated hemoglobin (Bld) [Mass/Vol] 126 mg/dL Normal [facility] Comment on above: Order Comment: Orly spence Type: BLOOD SPECIMENOrdering Facility: [facility] Address: [address] [place] [address] Result Comment: eAG: (Estimated average glucose) is a calculated value from HgbA1c and is fulfillment representative of the average blood glucose level in the last 2-3 month period. Performed By: #### 5 5454-3 ####[facility] [id number] [place] [address] [place] [facility] HbA1c (Bld) [Mass fraction] 6.0 % High 4.3-5.6 [facility] Comment on above: Order Comment: Orly spence Type: BLOOD SPECIMENOrdering Facility: [facility] Address: [address] [place] [address] Result Comment: Amer ican Diabetes Association guidelines indicate that patients with HgbA1c in the range 5.7-6.4% are at increased risk for development of diabetes, and intervention by lifestyle modification may be beneficial. HgbA1c greater or equal to 6.5% is considered diagnostic of diabetes. Performed By: #### 5 5454-3 ####[facility] [id number] [address] [place] Lipid 1996 panelon 5 Cholesterol [Mass/Vol] 146 mg/dL Normal <200 [facility] Comment on above: Order Comment: Orly spence Type: BLOOD SPECIMENOrdering Facility: [facility] Address: [address] [place] [address] Result Comment: <200 mg/dL, Desirable 200-239 mg/dL, Borderline high >239 mg/dL, High Performed By: #### 6 768-6 ####[facility] [id number] [place] [id number] [place]#### [address]44[address]-4 ####[facility] [id number] [place] [address] [id number] [address] Cholesterol in HDL [Mass/Vol] 50 mg/dL Normal >39 [facility] Comment on above: Order Comment: Speci men Type: BLOOD SPECIMENOrdering Facility: [facility] Address: [address] [place] [address] Result Comment: 40-5 9 mg/dL, Acceptable >59 mg/dL, High: Negative risk factor for coronary heart disease <40 mg/dL, Low: Positive risk factor for coronary heart disease Performed By: #### 6 768-6 ####[facility] [id number] [address] [place]#### 56318-5 ####[facility] [id number] [address] [id number] [address] [place] Cholesterol in LDL [Mass/Vol] 85 mg/dL Normal <100 [facility] Comment on above: Order Comment: Speci men Type: BLOOD SPECIMENOrdering Facility: [facility] Address: [address] [place] [address] Result Comment: <100 mg/dL, Optimal 100-129 mg/dL, Near optimal/above optimal 130-159 mg/dL, Borderline high 160-189 mg/dL, High >189 mg/dL, Very high Secondary prevention optimal LDL Cholesterol levels are recommended to be <70 mg/dL LDL cholesterol is calculated using the Galindo-NIH equation. Performed By: #### 6 768-6 ####[facility] [id number] [address] [place]#### 22559-9 ####[facility] [id number] [place] AVENUEDESK [id number], [address] [id number] [place] [address] [place] Cholesterol in LDL/Cholesterol in HDL [Mass ratio] 1.70 {ratio} Normal <2.54 [facility] Comment on above: Order Comment: Speci men Type: BLOOD SPECIMENOrdering Facility: [facility] Address: [address] [place] [address] Result Comment: Terri sharp: 1. National Cholesterol Education Program ATP III Guideline At-A-Glance Quick Desk Reference: National Heart, Lung, and Blood [place]. National Institutes of Health. 2001: NIH Publication No. 01-3305. 2. An International Atherosclerosis Society position paper: global recommendations for the management of dyslipidemia: executive summary, Atherosclerosis. 2014: 232(2):410-413. Performed By: #### 6 768-6 ####[facility] [id number] [place] [address] [place]#### 63169-5 ####[facility] [id number] [address] [place] [facility] [id number] [place] [address] [place] Cholesterol in VLDL [Mass/Vol] 8 mg/dL Normal <30 [facility] Comment on above: Order Comment: Speci men Type: BLOOD SPECIMENOrdering Facility: [facility] Address: [address] [place] [address] Performed By: #### 6 768-6 ####[facility] [id number] [place] [address] [place]#### 65779-6 ####[facility] [id number] [place] [id number] [place] [facility] [id number] [address] [place] Cholesterol non HDL [Mass/Vol] 96 mg/dL Normal <130 [facility] Comment on above: Order Comment: Speci men Type: BLOOD SPECIMENOrdering Facility: [facility] Address: [address] [place] [address] Result Comment: <130 mg/dL, Optimal 130-159 mg/dL, Near optimal/above optimal 160-189 mg/dL, Borderline high 190-219 mg/dL, High >219 mg/dL, Very high Secondary prevention optimal non HDL Cholesterol levels are recommended to be <100 mg/dL Performed By: #### 6 768-6 ####[facility] [id number] [place] [address] [place]#### 17914-6 ####[facility] [id number] [place] [address] [place] [facility] [id number] [place] [address] [place] Cholesterol.total/Andree sterol in HDL [Mass ratio] 2.92 {ratio} Normal <5.10 [facility] Comment on above: Order Comment: Speci men Type: BLOOD SPECIMENOrdering Facility: [facility] Address: [address] [place] [address] Performed By: #### 6 768-6 ####[facility] [id number] [place] [address] [place]#### 95233-9 ####[facility] [id number] [address] STATES OF [facility] [id number] [place] [address] [place] FASTING TIME 12 hrs Normal [facility] Comment on above: Order Comment: Speci men Type: BLOOD SPECIMENOrdering Facility: [facility] Address: [address] [place] [address] Performed By: #### 6 768-6 ####[facility] [id number] [place] [address] [place]#### 80352-0 ####[facility] [id number] [place] [address] [place] [facility] [id number] [place] [address] [place] Triglyceride [Mass/Vol] 54 mg/dL Normal <150 [facility] Comment on above: Order Comment: Speci men Type: BLOOD SPECIMENOrdering Facility: [facility] Address: [address] [place] [address] Result Comment: <150 mg/dL, Normal 150-199 mg/dL, Borderline high 200-499 mg/dL, High >499 mg/dL, Very high Performed By: #### 6 768-6 ####[facility] [id number] [place] [address] [place]#### 20850-5 ####[facility] [id number] [place] [address] [place] [facility] [id number] [place] [address] [place] Magnesium SerPl-mCncon 07-18 Magnesium [Mass/Vol] 1.9 mg/dL Normal 1.7-2.3 [facility] Comment on above: Order Comment: Speci men Type: BLOOD SPECIMENOrdering Facility: [facility] Address: [address] [place] [address] Performed By: #### 1 9123-9, 06681-7 ####[facility] [id number] [place] [address] [place] CNOVon 06-13-2024 CNOV Office Visit (PULMWS ) DEBBIE MONTES I ([id number]) 1965 F Date Time Provider Department 06/13/24 2:15 PM MARIA FIELD PULMWS During your visit today, we recorded the following information about you: Pulse Respiration Blood pressure Weight 102/minute 16/minute 112/78 73 kg Height 1.626 m Maria Field MD 06/13/2024 5:07 PM Signed . [facility] Note Patient name: Debbie Montes PCP: Kashif Bernard MD CC: COPD HPI: Debbie Montes 59 year old female former 42 pack year smoker, quitting 2022 with PMH significant for h/o asthma with severe COPD overlap, VTE on Eliquis (FVL, prothormbin gene, anticardiolipin Ab), lung nodules. Current therapy with Symbicort, Spiriva and Duoneb. Participating in lung cancer screening but two years over due. From a pulmonary standpoint she states she has been doing much better since she quit smoking. She no longer has persistent wheezing and chest congestion. She continues to have dyspnea with exertion mainly triggered by overheating or humidity. She had COVID infection in March but did not require hospitalization. Her pulmonary function test today show moderately severe obstruction which remains stable, no decline since her last test. 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 ALLERGIES Allergen Reactions Silvadene [Silver S* Intolerance Tetracycline GI Upset Augmentin [Amoxicil* GI Upset Cymbalta [Duloxetin* Other: See Comments GI upset; poor appetite Effexor Xr [Venlafa* Diarrhea Thinks maybe might be able to tolerate like Celexa after a while Sudafed [Pseudoephe* Intolerance heart racing Tramadol GI Upset Vicodin [Hydrocodon* Itching, Vomiting [place] very off balance; can take codeine Wellbutrin Sr [Bupr* Mental Status Change felt stoned Zoloft [Sertraline * Diarrhea apixaban (ELIQUIS) 5 mg tab(s) Take 1 tablet by mouth two times a day. montelukast (SINGULAIR) 10 mg tablet Take 1 tablet by mouth daily at bedtime. tiotropium bromide (SPIRIVA RESPIMAT) 2.5 mcg/actuation inhaler Inhale 2 puffs as instructed once daily. inhale 2 puffs by mouth once daily budesonide-formoterol (BREYNA) 160-4.5 mcg/actuation inhaler Inhale 2 puffs as instructed two times a day. citalopram (CELEXA) 40 mg tablet Take 1 tablet by mouth once daily. zolpidem (AMBIEN) 5 mg tablet Take 1 tablet by mouth at bedtime as needed for up to 90 days. albuterol HFA (PROVENTIL HFA, VENTOLIN HFA) 90 mcg/actuation inhaler Inhale 2 Puffs as instructed every 6 hours as needed for wheezing/shortness of breath. cetirizine (ZYRTEC) 10 mg tablet Take 1 tablet by mouth once daily. atorvastatin (LIPITOR) 40 mg tablet Take 1 tablet by mouth once daily. pantoprazole DR (PROTONIX) 40 mg tablet Take 1 tablet by mouth once daily. ipratropium bromide (ATROVENT) 42 mcg (0.06 %) nasal spray Use 2 Sprays in the nose four times a day as needed (nasal congestion and runny nose). amLODIPine (NORVASC) 10 mg tablet Take 1 tablet by mouth once daily. ipratropium-albuterol (DUONEB) 0.5 mg-3 mg(2.5 mg base)/3 mL nebu Inhale 3 mL as instructed every 6 hours as needed (wheezing/shortness of breath). triamcinolone acetonide (NASACORT AQ) 55 mcg nasal inhaler Use 2 Sprays in each nostril once daily. furosemide (LASIX) 20 mg tablet 1 daily as needed to manage swelling of feet and lower legs. aspirin, enteric coated (ASPIRIN, ENTERIC COATED) 81 mg EC tablet Take 81 mg by mouth once daily. Social History Tobacco Use Smoking status: Former Current packs/day: 0.00 Average packs/day: 1 pack/day for 42.1 years (42.1 ttl pk-yrs) Types: Cigarettes Start date: 02/07/1980 Quit date: 03/11/2022 Years since quittin.2 Smokeless tobacco: Never Tobacco comments: started age 16 Vaping Use Vaping status: Some Days Substance Use Topics Alcohol use: Yes Comment: rarely Drug use: No FAMILY HISTORY Problem Relation Age of Onset Heart Mother Hypertension Mother Diabetes Mother COPD Mother Developed before she . She never smoked. other (Macular degeneration) Mother other (Cataracts) Mother Emphysema Father Hypertension Sister Cancer Sister ovarian with mets to lung lining Ovarian cancer Sister Hypertension Sister No Known Problems Maternal Grandmother No Known Problems Maternal Grandfather No Known Problems Paternal Grandmother No Known Pro (more content not included)... Normal [facility] LUNG DIFFUSION CAPACITY (FORTINO O)on 06-13-2024 LUNG DIFFUSION CAPACITY (DLCO) [facility] [address] [place] [address] Test Date: 2024-06-13 Pat Name: DEBBIE MONTES Department: Room: Gender: Female [employer] Professional: : 1965 Requested By: Order Number: [id number] Reading MD: Maria Field MD Interpretive Statements Medications and Allergies were reviewed for possible drug interactions per policy. No contraindications or sensitivities were noted. Meds taken: Breyena, Spiriva 4 hours before testing. 4 puffs Albuterol (360 mcg) delivered by MDI via holding chamber. HR pre =102 /min, HR post = 102/min. Current ATS/ERS acceptability and repeatability standards for DLCO met with 2 acceptable maneuvers. Current ATS/ERS acceptability and repeatability standards for spirometry met. Start of test and EOFE criteria met. IMPRESSION: Spirometry indicates severe obstruction. Negative bronchodilator response. The diffusing capacity (uncorrected for hemoglobin) is reduced. The kCO (DLCO/VA) reflects a normal transfer/diffusion of CO from the alveolar regions to the blood. Clinical correlation recommended. Electronically Signed On 06-13-2024 15:57:34 EDT by Maria Field MD ID: [id number] Name: DEBBIE MONTES I Race: White Ht: 64.00 in Wt: 354.94 lbs Age: 59 Gender: Female : 1965 Dx: COPD_ Smoking Hx: Non-smoker Doctor: MARISOL AMANDA Test Date: 06/13/2024 Site: Tech: Heidi Amaya PRE-BRONCH POST-BRONCH Faye LLN Pred ULN %Pred ZScore Faye %Pred %Chg ZScore SPIROMETRY FVC 2.48 2.21 3.02 3.86 82 -1.09 2.65 87 5 -0.74 FEV1 1.01 1.75 2.42 3.06 41 -3.28 1.11 46 4 -3.06 FEV1/FVC 0.41 0.68 0.80 0.90 50 -3.95 0.42 52 3 -3.88 FEFMax 2.97 4.67 6.38 8.09 46 -3.27 2.49 39 -16 -3.73 FEF50 0.36 1.77 3.38 4.99 10 -3.09 0.41 12 15 -3.03 FIF50 5.55 5.31 -4 FEF50/FIF50 0.06 90-100 0.08 20 FIVC 2.51 2.61 4 RWE28-46 0.29 1.22 2.34 3.84 12 -3.84 0.33 14 13 -3.70 ExpiredTime 13.64 15.65 14 TimeToFEFMax 0.06 0.08 36 DEZ 0.02 0.04 90 VolExtrap% 1 2 78 LUNG DIFFUSION DLCOunc 13.52 15.63 21.80 27.97 62 -2.21 DLCOStdPB 13.23 15.63 21.80 27.97 60 -2.28 VA 4.32 3.96 5.06 6.16 85 -1.11 Kco 3.06 3.28 4.23 5.32 72 -2.05 Comments: Medications and Allergies were reviewed for possible drug interactions per policy. No contraindications or sensitivities were noted. Meds taken: Breyena, Spiriva 4 hours before testing. 4 puffs Albuterol (360 mcg) delivered by MDI via holding chamber. HR pre =102 /min, HR post = 102/min. Current ATS/ERS acceptability and repeatability standards for DLCO met with 2 acceptable maneuvers. Current ATS/ERS acceptability and repeatability standards for spirometry met. Start of test and EOFE criteria met. Normal [facility] No Panel Informationon 06-13 [facility] [address] [place] [address] Test Date: 2024-06-13 Pat Name: DEBBIE MONTES Department: Room: Gender: Female [employer] Professional: : 1965 Requested By: Order Number: [id number] Reading MD: Maria Field MD Interpretive Statements Medications and Allergies were reviewed for possible drug interactions per policy. No contraindications or sensitivities were noted. Meds taken: Breyena, Spiriva 4 hours before testing. 4 puffs Albuterol (360 mcg) delivered by MDI via holding chamber. HR pre =102 /min, HR post = 102/min. Current ATS/ERS acceptability and repeatability standards for DLCO met with 2 acceptable maneuvers. Current ATS/ERS acceptability and repeatability standards for spirometry met. Start of test and EOFE criteria met. IMPRESSION: Spirometry indicates severe obstruction. Negative bronchodilator response. The diffusing capacity (uncorrected for hemoglobin) is reduced. The kCO (DLCO/VA) reflects a normal transfer/diffusion of CO from the alveolar regions to the blood. Clinical correlation recommended. Electronically Signed On 06-13-2024 15:57:34 EDT by Maria Field MD ID: [id number] Name: DEBBIE MONTES I Race: White Ht: 64.00 in Wt: 354.94 lbs Age: 59 Gender: Female : 1965 Dx: COPD_ Smoking Hx: Non-smoker Doctor: MARISOL AMANDA Test Date: 06/13/2024 Site: WO Tech: Heidi Amaya PRE-BRONCH POST-BRONCH Faye LLN Pred ULN %Pred ZScore Faye %Pred %Chg ZScore SPIROMETRY FVC 2.48 2.21 3.02 3.86 82 -1.09 2.65 87 5 -0.74 FEV1 1.01 1.75 2.42 3.06 41 -3.28 1.11 46 4 -3.06 FEV1/FVC 0.41 0.68 0.80 0.90 50 -3.95 0.42 52 3 -3.88 FEFMax 2.97 4.67 6.38 8.09 46 -3.27 2.49 39 -16 -3.73 FEF50 0.36 1.77 3.38 4.99 10 -3.09 0.41 12 15 -3.03 FIF50 5.55 5.31 -4 FEF50/FIF50 0.06 90-100 0.08 20 FIVC 2.51 2.61 4 XJW99-82 0.29 1.22 2.34 3.84 12 -3.84 0.33 14 13 -3.70 ExpiredTime 13.64 15.65 14 TimeToFEFMax 0.06 0.08 36 DEZ 0.02 0.04 90 VolExtrap% 1 2 78 LUNG DIFFUSION DLCOunc 13.52 15.63 21.80 27.97 62 -2.21 DLCOStdPB 13.23 15.63 21.80 27.97 60 -2.28 VA 4.32 3.96 5.06 6.16 85 -1.11 Kco 3.06 3.28 4.23 5.32 72 -2.05 Comments: Medications and Allergies were reviewed for possible drug interactions per policy. No contraindications or sensitivities were noted. Meds taken: Breyena, Spiriva 4 hours before testing. 4 puffs Albuterol (360 mcg) delivered by MDI via holding chamber. HR pre =102 /min, HR post = 102/min. Current ATS/ERS acceptability and repeatability standards for DLCO met with 2 acceptable maneuvers. Current ATS/ERS acceptability and repeatability standards for spirometry met. Start of test and EOFE criteria met. PULMONARY FUNCTION LAB [facility] SPIROMETRY WITH DILATOR IF O BSTRUCTEDon 06-13-2024 DLCO (ml/min/mmHg) 13.52 ml/min/mmHg [facility] DLCO LLN (ml/min/mmHg) 15.63 ml/min/mmHg [facility] DLCO PREDICTED (ml/min/mmHg) 21.8 ml/min/mmHg [facility] DLCO ULN (ml/min/mmHg) 27.97 ml/min/mmHg C [facility] DLCO/VA (ml/min/mmHg/L) 0.03 ml/min/mmHg/ L [facility] DLCO/VA PREDICTED (ml/min/mmHg/L) 0.04 ml/min/mmHg/L [facility] DLCO/VAcor (ml/min/mmHg/L) 0.03 ml/min/mmHg/L [facility] DLCOcor (ml/min/mmHg) 13.23 ml/min/mmHg Cl [facility] DLCOcor PREDICTED (ml/min/mmHg) 21.8 ml/min/mmHg [facility] ERV PREDICTED (L) 1.01 L/S [facility] FEF25% POST (L/S) 1.15 L/S [facility] FEF25% PRE (L/S) 0.93 L/S [facility] KQP70-90% LLN (L/S) 1.22 L/S [facility] GFH46-42% POST (L/S) 0.33 L/S [facility] MIQ51-08% PRE (L/S) 0.29 L/S [facility] SBG52-46% PREDICTED (L/S) 2.34 L/S [facility] FEF75% LLN (L/S) 0.28 L/S [facility] FEF75% POST (L/S) 0.17 L/S [facility] FEF75% PRE (L/S0 0.12 L/S [facility] FEF75% PREDICTED (L/S) 0.69 L/S [facility] FEF75% ULN (L/S) 1.57 L/S [facility] FET POST (S) 15.65 S [facility] FET PRE (S) 13.64 S [facility] FEV1 LLN (L) 1.75 L [facility] FEV1 PRE (L) 1.01 L [facility] FEV1 PREDICTED (L) 2.42 L [facility] FEV1 ULN (L) 3.06 L [facility] FEV1/FVC LLN (%) 68 % [facility] [facility] FEV1/FVC POST (%) 42 % [facility] FEV1/FVC PRE (%) 41 % [facility] FEV1/FVC PREDICTED (%) 80 % [facility] FEV1_POST (L) 1.11 L [facility] FVC LLN (L) 2.21 L [facility] FVC POST (L) 2.65 L [facility] FVC PRE (L) 2.48 L [facility] FVC PREDICTED (L) 3.02 L [facility] FVC ULN (L) 3.86 L [facility] IC PREDICTED (L) 2.01 L/S [facility] PEF LLN (L/S) 4.67 L/S [facility] PEF POST (L/S) 2.49 L/S [facility] PEF PRE (L/S) 2.97 L/S [facility] PEF ULN (L/S) 8.09 L/S [facility] SVC LLN (L) 2.21 L/S [facility] SVC PREDICTED (L) 3.02 L/S [facility] SVC ULN (L) 3.86 L/S [facility] VA (L) 4.32 L [facility] VA PREDICTED (L) 5.[address] [facility] SPIROMETRY WITH DILATOR IF OBSTRUCTED [facility] [address] [address] Test Date: 2024-06-13 Pat Name: DEBBIE MONTES Department: Room: Gender: Female [employer] Professional: : 1965 Requested By: Order Number: [id number] Reading MD: Maria Field MD Interpretive Statements Medications and Allergies were reviewed for possible drug interactions per policy. No contraindications or sensitivities were noted. Meds taken: Breyena, Spiriva 4 hours before testing. 4 puffs Albuterol (360 mcg) delivered by MDI via holding chamber. HR pre =102 /min, HR post = 102/min. Current ATS/ERS acceptability and repeatability standards for DLCO met with 2 acceptable maneuvers. Current ATS/ERS acceptability and repeatability standards for spirometry met. Start of test and EOFE criteria met. IMPRESSION: Spirometry indicates severe obstruction. Negative bronchodilator response. The diffusing capacity (uncorrected for hemoglobin) is reduced. The kCO (DLCO/VA) reflects a normal transfer/diffusion of CO from the alveolar regions to the blood. Clinical correlation recommended. Electronically Signed On 06-13-2024 15:57:34 EDT by Maria Field MD ID: [id number] Name: DEBBIE MONTES I Race: White Ht: 64.00 in Wt: 354.94 lbs Age: 59 Gender: Female : 1965 Dx: COPD_ Smoking Hx: Non-smoker Doctor: MARISOL AMANDA Test Date: 06/13/2024 Site: Tech: Heidi Amaya PRE-BRONCH POST-BRONCH Faye LLN Pred ULN %Pred ZScore Faye %Pred %Chg ZScore SPIROMETRY FVC 2.48 2.21 3.02 3.86 82 -1.09 2.65 87 5 -0.74 FEV1 1.01 1.75 2.42 3.06 41 -3.28 1.11 46 4 -3.06 FEV1/FVC 0.41 0.68 0.80 0.90 50 -3.95 0.42 52 3 -3.88 FEFMax 2.97 4.67 6.38 8.09 46 -3.27 2.49 39 -16 -3.73 FEF50 0.36 1.77 3.38 4.99 10 -3.09 0.41 12 15 -3.03 FIF50 5.55 5.31 -4 FEF50/FIF50 0.06 90-100 0.08 20 FIVC 2.51 2.61 4 ADL70-75 0.29 1.22 2.34 3.84 12 -3.84 0.33 14 13 -3.70 ExpiredTime 13.64 15.65 14 TimeToFEFMax 0.06 0.08 36 DEZ 0.02 0.04 90 VolExtrap% 1 2 78 LUNG DIFFUSION DLCOunc 13.52 15.63 21.80 27.97 62 -2.21 DLCOStdPB 13.23 15.63 21.80 27.97 60 -2.28 VA 4.32 3.96 5.06 6.16 85 -1.11 Kco 3.06 3.28 4.23 5.32 72 -2.05 Comments: Medications and Allergies were reviewed for possible drug interactions per policy. No contraindications or sensitivities were noted. Meds taken: Breyena, Spiriva 4 hours before testing. 4 puffs Albuterol (360 mcg) delivered by MDI via holding chamber. HR pre =102 /min, HR post = 102/min. Current ATS/ERS acceptability and repeatability standards for DLCO met with 2 acceptable maneuvers. Current ATS/ERS acceptability and repeatability standards for spirometry met. Start of test and EOFE criteria met. FVC_PRE (L) : 2.48 L FVC_POST (L) : 2.65 L FVC_PRED (L) : 3.02 L FVC_LLN (L) : 2.21 L FVC_ULN (L) : 3.86 L FEV1_PRE (L) : 1.01 L FEV1_POST (L) : 1.11 L FEV1_PRED (L) : 2.42 L FEV1_LLN (L) : 1.75 L FEV1_ULN (L) : 3.06 L FEV1/FVC_PRE (%) : 41 % FEV1/FVC_POST (%) : 42 % FEV1/FVC_PRED (%) : 80 % FEV1/FVC_LLN (%) : 68 % VKE90_NKP (L/S) : 0.93 L/S RYS41_XSDW (L/S) : 1.15 L/S JVT21_TFN (L/S) : 0.12 L/S VMW92_HHCD (L/S) : 0.17 L/S SIO36_GKZD (L/S) : 0.69 L/S WJK12_TNY (L/S) : 0.28 L/S EML70_GVY (L/S) : 1.57 L/S ZSK64-97%_PRE (L/S) : 0.29 L/S UAB56-90%_POST (L/S) : 0.33 L/S UCQ56-93%_PRED (L/S) : 2.34 L/S MCB80-35%_LLN (L/S) : 1.22 L/S PEF_PRE (L/S) : 2.97 L/S PEF_POST (L/S) : 2.49 L/S PEFMAX_LLN (L/S) : 4.67 L/S PEFMAX_ULN (L/S) : 8.09 L/S SVC_PRED (L) : 3.02 L/S SVC_LLN (L) : 2.21 L/S SVC_ULN (L/S) : 3.86 L/S IC_PRED (L) : 2.01 L/S ERV_PREDICTED (L) : 1.01 L/S DLCO (ML/MIN/MMHG) : 13.52 ml/min/mmHg DLCO_PRED (ML/MIN/MMHG) : 21.80 ml/min/mmHg DLCO_LLN(ML/MIN/MMHG) : 15.63 ml/min/mmHg DLCO_ULN (ML/MIN/MMHG) : 27.97 ml/min/mmHg FET_PRE (S) : 13.64 S FET_POST (S) : 15.65 S VA (L) : 4.32 L VA_PRD (L) : 5.06 L DLCO/VA (ML/MIN/MMHG/L) : 0.03 ml/min/mmHg/L DLCO_VA_PRED (L) : 0.04 ml/min/mmHg/L DLCOCOR (ML/MIN/MMHG) : 13.23 ml/min/mmHg DLCOCOR_PRED (ML/MIN/MMHG) : 21.80 ml/min/mmHg DLCO/VACOR (ML/MIN/MMHG/L) : 0.03 ml/min/mmHg/L Normal [facility] CNOVon 02-06-2024 CNOV Office Visit (UCWSTR ) DEBBIE MONTES I ([id number]) 1965 F Date Time Provider Department 02/06/24 9:30 AM YURIY BELLA [facility] During your visit today, we recorded the following information about you: Temperature Pulse Respiration Blood pressure 99.5 degrees 97/minute 21/minute 120/71 Weight 73 kg Yuriy Bella MD 02/06/2024 10:20 AM Signed Patient presents with: Headache: Cough, headache, sinus pressure and pain, head congestion, fever, less than 24 hour HPI: Feeling sick abruptly last night. She noticed a little sinus pressure starting last week. Positive symptoms: slight Cough, Sinus pressure, Fever (up to 102), bad Headache, Nasal Congestion, Post nasal drainage, Negative symptoms: Sore throat, Rhinorrhea, Nausea, Vomiting, Diarrhea, OTC: Tylenol MEDICATIONS: Current Outpatient Medications Medication Sig apixaban (ELIQUIS) 5 mg tab(s) Take 1 tablet by mouth two times a day. montelukast (SINGULAIR) 10 mg tablet Take 1 tablet by mouth daily at bedtime. cetirizine (ZYRTEC) 10 mg tablet Take 1 tablet by mouth once daily. atorvastatin (LIPITOR) 40 mg tablet Take 1 tablet by mouth once daily. pantoprazole DR (PROTONIX) 40 mg tablet Take 1 tablet by mouth once daily. ipratropium bromide (ATROVENT) 42 mcg (0.06 %) nasal spray Use 2 Sprays in the nose four times a day as needed (nasal congestion and runny nose). tiotropium bromide (SPIRIVA RESPIMAT) 2.5 mcg/actuation inhaler Inhale 2 Puffs as instructed once daily. inhale 2 puffs by mouth once daily budesonide-formoterol (BREYNA) 160-4.5 mcg/actuation inhaler Inhale 2 Puffs as instructed two times a day. amLODIPine (NORVASC) 10 mg tablet Take 1 tablet by mouth once daily. zolpidem (AMBIEN) 5 mg tablet Take 1 tablet by mouth at bedtime as needed for up to 90 days. ALPRAZolam (XANAX) 0.5 mg tablet Take 1 tablet by mouth at bedtime as needed for up to 60 days. ipratropium-albuterol (DUONEB) 0.5 mg-3 mg(2.5 mg base)/3 mL nebu Inhale 3 mL as instructed every 6 hours as needed (wheezing/shortness of breath). citalopram (CELEXA) 40 mg tablet Take 1 tablet by mouth once daily. albuterol HFA (PROVENTIL HFA, VENTOLIN HFA) 90 mcg/actuation inhaler Inhale 2 Puffs as instructed every 6 hours as needed for wheezing/shortness of breath. triamcinolone acetonide (NASACORT AQ) 55 mcg nasal inhaler Use 2 Sprays in each nostril once daily. furosemide (LASIX) 20 mg tablet 1 daily as needed to manage swelling of feet and lower legs. aspirin, enteric coated (ASPIRIN, ENTERIC COATED) 81 mg EC tablet Take 81 mg by mouth once daily. No current facility-administered medications for this visit. ALLERGIES: ALLERGIES Allergen Reactions Silvadene [Silver S* Intolerance Tetracycline GI Upset Augmentin [Amoxicil* GI Upset Cymbalta [Duloxetin* Other: See Comments GI upset; poor appetite Effexor Xr [Venlafa* Diarrhea Thinks maybe might be able to tolerate like Celexa after a while Sudafed [Pseudoephe* Intolerance heart racing Tramadol GI Upset Vicodin [Hydrocodon* Itching, Vomiting [place] very off balance; can take codeine Wellbutrin Sr [Bupr* Mental Status Change felt stoned Zoloft [Sertraline * Diarrhea VITALS: BP 120/71 Pulse 97 Temp 37.5 ?C (99.5 ?F) Resp 21 Wt 73 kg (160 lb 15 oz) LMP 02/19/2015 SpO2 95% BMI 27.62 kg/m? PHYSICAL EXAM: GEN: mildly ill appearing HEENT: PERRL, EOMI, conjunctiva clear Ears: TMs without erythema, bulge, or effusion Sinuses: non-tender frontal sinus, pressure over maxillary sinuses Throat: moist mucous membranes, no erythema, no exudate Neck: supple, no thyromegaly, no lymphadenopathy HEART: regular rate, regular rhythm, no murmurs LUNGS: clear to auscultation, no wheezes or crackles, no increased WOB ASSESSMENT/PLAN: 1. Influenza-like illness - ICD9: 487.1, ICD10: J11.1 - suspect influenza or COVID-19. - Discussed supportive care treatment with home isolation (fever free for 24 hours and improving symptoms), rest, cold medicine, and analgesia. - Red flags to seek further treatment include chest pain, shortness of breath, and lethargy; in the ER if severe. - INFLUENZA AANDB MOLECULAR (POC) - negative - COVID AND INFLUENZA A/B AND RSV PCR, ROUTINE -not a candidate for Paxlovid due to interaction with Eliquis. Yuriy Bella MD Allergies As of Date: 02/06/2024 Noted Allergy Reaction SILVADENE (SILVER SULFADIAZINE) 09/08/2006 5 - Intolerance TETRACYCLINE 09/08/2006 8 - GI Upset AUGMENTIN (AMOXICILLIN-POT CLAVUL*02/08/2011 8 - GI Upset CYMBALTA (DULOXETINE) 04/14/2011 14 - Other: See Comments Comments: GI upset; poor appetite EFFEXOR XR (VENLAFAXINE) 05/10/2001 6 - Diarrhea Comments: Thinks maybe might be able to tolerate like Celexa after a while SUDAFED (PSEUDOEPHEDRINE) 11/15/2006 5 - Intolerance Comments: heart racing TRAMADOL 06/10/2013 8 - GI Upset (more content not included)... Normal [facility] COVID AND INFLUENZA A/B AND RSV PCR, ROUTINEon 02-06-2024 SARS-CoV-2 (COVID-19) RNA ANSON+probe Ql (Unsp spec) SARS-COV-2 (AGENT OF COVID-19) RNA: Detected INFLUENZA A RNA: Not detected INFLUENZA B RNA: Not detected RESPIRATORY SYNCYTIAL VIRUS (RSV) RNA: Not detected Abnormal [facility] Comment on above: Performed By: #### C VFLRS ####[facility] [id number] [place] [address] [place] INFLUENZA A&B MOLECULAR (POC )on 02-06-2024 Flu A (POCT) Negative Negative [facility] Flu B (POCT) Negative Negative [facility] Procedural Control Valid [facility] Location:[facility], [address], [place], [address] [facility] POINT OF CARE [facility] CNOVon 02-02-2024 CNOV Office Visit (INTMWS ) DEBBIE MONTES I ([id number]) 1965 F Date Time Provider Department 02/02/24 3:20 PM KASHIF BERNARD INTRodWS During your visit today, we recorded the following information about you: Temperature Pulse Respiration Blood pressure 98.2 degrees 85/minute 16/minute 108/60 Weight 73.7 kg Kashif Bernard MD 03/04/2024 12:39 AM Addendum This note was created using Yoomlyriter. Subjective Debbie Montes is a 59 year old female. No chief complaint on file. SUBJECTIVE: Debbie Montes is a 59 year old year old lady here today for 6 month follow up appointment for review of medical conditions. Atorvastatin - New rx/refills now since current rx will run out in April and won't be back in till August. Some sinus pressure, needs Zyrtec and Singulair refilled. COPD - doing well, being managed with a specialist Debbie Montes is a 59-year-old female with a history of COPD, presenting for medication refills and evaluation of sinus congestion and post-nasal drainage. Debbie reports persistent sinus congestion and post-nasal drainage, primarily on the right side, with associated dryness and clumping of blood. She attributes this to difficulty blowing her nose due to reduced airflow from COPD. She also experiences mucus drainage down her throat, leading to hoarseness and frequent throat clearing. She has been using Zyrtec and Singulair for allergy management but has not used nasal saline recently. She previously used Flonase but discontinued it due to gastrointestinal discomfort. She notes that her home has electric heat, which contributes to nasal dryness, and she uses a vaporizer to mitigate this. She is requesting refills for atorvastatin, Eliquis, Singulair, and Zyrtec. She currently receives a 30-day supply of Eliquis and inquires about the possibility of a 90-day supply. She also reports experiencing breakthrough acid reflux despite daily use of omeprazole and inquires about alternative medications. She has a follow-up appointment with her aerial installer in February and mentions that her Spiriva is managed by her aerial installer. She reports trace edema in her ankles, which she manages with furosemide and leg elevation. She has been more active during the season, which she believes has contributed to the edema. She recently purchased a treadmill to improve her stamina, as she is hesitant to walk outside due to concerns about her COPD. She reports that her disability claim was recently approved after a 3-year process. She denies any recent lab tests by other providers and is not currently on any thyroid medications. She has a family history of sinus issues, noting that her father had horrible sinuses. She has had a tonsillectomy and has not experienced a sore throat since the procedure. 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 Current Outpatient Medications Medication Sig tiotropium bromide (SPIRIVA RESPIMAT) 2.5 mcg/actuation inhaler Inhale 2 Puffs as instructed once daily. inhale 2 puffs by mouth once daily budesonide-formoterol (BREYNA) 160-4.5 mcg/actuation inhaler Inhale 2 Puffs as instructed two times a day. amLODIPine (NORVASC) 10 mg tablet Take 1 tablet by mouth once daily. atorvastatin (LIPITOR) 40 mg tablet Take 1 tablet by mouth once daily. zolpidem (AMBIEN) 5 mg tablet Take 1 tablet by mouth at bedtime as needed for up to 90 days. ALPRAZolam (XANAX) 0.5 mg tablet Take 1 tablet by mouth at bedtime as needed for up to 60 days. ipratropium-albuterol (DUONEB) 0.5 mg-3 mg(2.5 mg base)/3 mL nebu Inhale 3 mL as instructed every 6 hours as needed (wheezing/shortness of breath). omeprazole (PRILOSEC) 40 mg capsule Take 1 capsule by mouth once daily. montelukast (SINGULAIR) 10 mg tablet Take 1 tablet by mouth daily at bedtime. citalopram (CELEXA) 40 mg tablet Take 1 tablet by mouth once daily. apixaban (ELIQUIS) 5 mg tab(s) Take 1 tablet by mouth two times a day. cetirizine (ZYRTEC) 10 mg tablet Take 1 tablet by mouth once daily. albuterol HFA (PROVENTIL HFA, VENTOLIN HFA) 90 mcg/actuation inhaler Inhale 2 Puffs as instructed every 6 hours as needed for wheezing/shortness of breath. triamcinolone acetonide (NASACORT AQ) 55 mcg nasal inhaler Use 2 Sprays in each nostril once daily. cyclobenzaprine (FLEXERIL) 10 mg tablet Take 1 tablet by mouth three times daily as needed for muscle spasm. (Patient not taking: Reported on 07/21/2023) (more content not included)... Normal [facility] CNOVon 12-05-2023 CNOV Office Visit (PULMWS ) DEBBIE MONTES I ([id number]) 1965 F Date Time Provider Department 12/05/23 2:00 PM MARISOL AMANDA PULMWS During your visit today, we recorded the following information about you: Marisol Amanda, PIG MACHINE SUPERVISOR.DRILL PRESS OPERATOR HELPER 12/05/2023 3:29 PM Signed Pulmonary Medicine Patients name: Debbie Montes PCP: Kashif Bernard MD CC: COPD follow-up HPI: Debbie Montes is a 58 year old female former 30 pack year smoker (quit 03/2022) with PMH significant for mild asthma in past, severe COPD (normal alpha 1 antitrypsin), VTE on chronic Eliquis (seen by Hematology with positive for heterozygous FVL, Prothrombin gene, and positive anticardiolipin Ab.), lung nodules, COVID 08/2021 and allergic rhinitis. Current therapy consists of Symbicort and Spirva. Previously did not tolerate Trelegy secondary to cough. Also uses PRN Duoneb and Albuterol. Continued cessation from smoking and vaping. Today, patient reports occasional cough, mostly in the morning. Occasional clear sputum. No hemoptysis. No recent wheezing. Rare dyspnea at rest. Her biggest complaint continues to be gradually worsening dyspnea with exertion. Notes that even daily tasks around the house causes dyspnea. She limits activities she does outside of her home as she worries she will become too SOB. Reports compliance with inhaled therapy but can't hold her breath long enough to feel like she is getting the full benefit of the medication. Albuterol use is 4-5 times a week. Duoneb use is at least daily, sometimes 2 times. Finds nebulizer treatment to be helpful. SPO2 at home 93-99%. Denies any urgent care or ED visits in the last year related to respiratory concerns. No steroids or antibiotics. 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 Allergies: Silvadene [Silver S* Intolerance Tetracycline GI Upset Augmentin [Amoxicil* GI Upset Cymbalta [Duloxetin* Other: See Comments Comment:GI upset; poor appetite Effexor Xr [Venlafa* Diarrhea Comment:Thinks maybe might be able to tolerate like Celexa after a while Sudafed [Pseudoephe* Intolerance Comment:heart racing Tramadol GI Upset Vicodin [Hydrocodon* Itching, Vomiting Comment:[place] very off balance; can take codeine Wellbutrin Sr [Bupr* Mental Status Change Comment:felt stoned Zoloft [Sertraline * Diarrhea Medication List Accurate as of December 05, 2023 12:52 PM. If you have any questions, ask your nurse or doctor. CONTINUE taking these medications albuterol HFA 90 mcg/actuation inhaler Commonly known as: PROVENTIL HFA, VENTOLIN HFA Inhale 2 Puffs as instructed every 6 hours as needed for wheezing/shortness of breath. ALPRAZolam 0.5 mg tablet Commonly known as: XANAX Take 1 tablet by mouth at bedtime as needed for up to 60 days. amLODIPine 10 mg tablet Commonly known as: NORVASC Take 1 tablet by mouth once daily. apixaban 5 mg tab(s) Commonly known as: ELIQUIS Take 1 tablet by mouth two times a day. aspirin, enteric coated 81 mg EC tablet Commonly known as: ASPIRIN, ENTERIC COATED atorvastatin 40 mg tablet Commonly known as: LIPITOR Take 1 tablet by mouth once daily. budesonide-formoterol 160-4.5 mcg/actuation inhaler Commonly known as: BREYNA Inhale 2 Puffs as instructed two times a day. cetirizine 10 mg tablet Commonly known as: ZyrTEC Take 1 tablet by mouth once daily. citalopram 40 mg tablet Commonly known as: CeleXA Take 1 tablet by mouth once daily. cyclobenzaprine 10 mg tablet Commonly known as: FLEXERIL Take 1 tablet by mouth three times daily as needed for muscle spasm. furosemide 20 mg tablet Commonly known as: LASIX 1 daily as needed to manage swelling of feet and lower legs. ipratropium-albuterol 0.5 mg-3 mg(2.5 mg base)/3 mL Nebu Commonly known as: DUONEB Inhale 3 mL as instructed every 6 hours as needed (wheezing/shortness of breath). montelukast 10 mg tablet Commonly known as: SINGULAIR Take 1 tablet by mouth daily at bedtime. omeprazole 40 mg capsule Commonly known as: PriLOSEC Take 1 capsule by mouth once daily. SPIRIVA RESPIMAT 2.5 mcg/actuation inhaler Generic drug: tiotropium bromide Inhale 2 Puffs as instructed once daily. inhale 2 puffs by mouth once daily triamcinolone acetonide 55 mcg nasal inhaler Commonly known as: NASACORT AQ Use 2 Sprays in each nostril once daily. zolpidem 5 mg tablet Commonly known as: AMBIEN Take 1 tablet by mouth at bedtime as (more content not included)... Normal [facility] UA DIP, URINE (POC)on 2022 BILIRUBIN UA (POCT) Negative Negative [facility] CLARITY UA (POCT) Cloudy [facility] COLOR UA (POCT) Light yellow [facility] GLUCOSE UA (POCT) Negative Negative mg/dL [facility] Hemoglobin Ql (U) Negative Negative [facility] KETONE UA (POCT) Negative Negative mg/dL [facility] LEUKOCYTES UA (POCT) Small Abnormal Negative [facility] N[facility] ([facility]) Negative Negative [facility] PH UA (POCT) 5.5 4.5 - 8.0 [facility] Protein Ql (U) Negative Negative mg/dL [facility] SPECIFIC GRAVITY UA (POCT) <=1.005 Abnormal 1.005 - 1.030 [facility] UROBILINOGEN UA (POCT) 0.2 E.U./dL Cheli l E.U./dL [facility] [place] - Individual Treatment Pl anon 08-10-2022 [place] - Individual Treatment Plan [facility] Pulmonary Rehab Reports [address] [place] [address] [place] - Individual Treatment Plan MR#: [id number] Acct: [id number] Name: DEBBIE MONTES I Rep #: [id number] : 1965 57 From: Christoph Aragon BS, RVT PCP: Dr. Kashif Bernard MD Exercise - Initial Assessment Visit Session Number:: 25 Physician Prescribed Exercise Current METSs:: 5 Target HR:: 123 Target RPE 12-16:: 12-14 Maximum Exercise HR:: 138 Resting Blood Pressure: 114/68 Maximum Exercise Blood Pressure: 134/48 Minimum SpO2 with exercise: 91 EKG Type: NSR to ST Nutrition/Wt Mgmt - Initial Visit Session Number:: 25 Weight Management Admit Height:: 5 ft 4 in Admit Weight:: 168 lb Admit BMI:: 28.8 Nutrition/Wt Mgmt - 30-Day Visit Date of Eval: 08/10/22 Session Number:: 25 Weight Management Height: 5 ft 4 in Weight:: 168 lb BMI: 28.8 Nutrition/Wt Mgmt - 60-Day Visit Session Number:: 25 Weight Management Height: 5 ft 4 in Weight:: 168 lb BMI: 28.8 Weight Goals Progress:: Goal met Nutrition/Wt Mgmt - 90-Day Visit Date of Eval: 08/10/22 Session Number:: 25 Weight Management Height: 5 ft 4 in Weight:: 168 lb BMI: 28.8 Weight Goals Progress:: Goal met Nutrition/Wt Mgmt - Final Visit Session Number:: 25 Weight Management Height: 5 ft 4 in Weight:: 168 lb BMI: 28.8 Psychosocial - Initial Assess Visit Session Number:: 25 Psychosocial - 30-Day Visit Date of Eval: 08/10/22 Session Number:: 25 Psychosocial - 60-Day Visit Session Number:: 25 Psychosocial - 90-Day Visit Date of Eval: 08/10/22 Session Number:: 25 Psychosocial - Final Assess Visit Session Number:: 25 Oxygen Oxygen Titration Init Visit Session Number:: 25 Initial Assessment SpO2:: 91 Oxygen Oxygen Titration 30D Visit Date of Eval: 08/10/22 Session Number:: 25 Reassessment SpO2:: 91 Oxygen Oxygen Titration 60D Visit Date of Eval: 08/10/22 Session Number:: 25 Reassessment SpO2:: 91 Oxygen Oxygen Titration 90D Visit Date of Eval: 08/10/22 Session Number:: 25 Reassessment SpO2:: 91 Oxygen Oxygen Titration ANÍBAL Visit Date of Eval: 08/10/22 Session Number:: 25 Reassessment SpO2:: 91 Core Components - Initial Visit Session Number:: 25 Hypertension Hypertension Diagnosis:: Hypertension ICD-10 I10 BP: 114/68 [place] [employer] Hypertension Guidelines Blood Pressure: 134/48 Core Components - 30 DAYS Visit Date of Eval: 08/10/22 Session Number:: 25 Hypertension Hypertension Diagnosis:: Hypertension ICD-10 I10 Resting Blood Pressure:: 114/68 [place] [employer] Hypertension Guidelines Peak Exercise Blood Pressure:: 134/48 30 day Reassessments:: Met Core Components - 60 DAYS Visit Session Number:: 25 Hypertension Hypertension Diagnosis:: Hypertension ICD-10 I10 Resting Blood Pressure:: 114/68 [place] [employer] Hypertension Guidelines Peak Exercise Blood Pressure:: 134/48 60 day Reassessments:: Met Core Components - 90 DAYS Visit Date of Eval: 08/10/22 Session Number:: 25 Hypertension Hypertension Diagnosis:: Hypertension ICD-10 I10 Resting Blood Pressure:: 114/68 [place] [employer] Hypertension Guidelines Peak Exercise Blood Pressure:: 134/48 90 day Reassessments:: Met Core Components - Final Visit Session Number:: 25 Hypertension Hypertension Diagnosis:: Hypertension ICD-10 I10 Resting Blood Pressure:: 114/68 [place] [employer] Hypertension Guidelines Peak Exercise Blood Pressure:: 134/48 Knowledge Questionaire (BCKQ) Information Information: [place] COPD Knowledge Questionnaire (BCKQ) This questionnaire is designed to find out what you know about your lung problem. It should be completed without help form anyone else. This usually takes between 10 and 20 minutes. Your answers will help us to find out what information you need to help you to understand and manage your lung condition. Mrogan the knik which you think is the correct answer. Nutrition Survey Nutrition Survey Instructions Scoring Instructions 08/10/22 1045 Date Christoph COBB, RVT Outcome assessment reviewed. Exercise plan approved as documented. Treatment plan and goals support patient needs/abilities. Continue with current plan. I certify the patient demonstrates improvement and remains willing and capable of participation. the patient continues to benefit from pulmonary services/training. The patient may continue at current intensity, endurance and modality and progress per protocol. 08/29/22 1209 Cosigner Signature: Date Art Caldwell MD CC: Signed [facility] [place] - Individual Treatment Pl anon 07-13-2022 [place] - Individual Treatment Plan [facility] Pulmonary Rehab Reports [address] [place] [address] [place] - Individual Treatment Plan MR#: [id number] Acct: [id number] Name: DEBBIE MONTES I Rep #: [id number] : 1965 57 From: Jose Adames BROADCAST OPERATIONS ENGINEER, PAID INTERN, BS PCP: Dr. Kashif Bernard MD Exercise - 60-Day Assessment - Visit Date of Eval: 07/13/22 Session Number:: 23 - Physician Prescribed Exercise Modalities: Treadmill, Biodyne, NuStep Intensity: 60-80% of age predicted maximum heart rate reserve Aerobic Exercise [30-60 min 3-7x/week]:: Progressing Milady-13 Current METSs: 4.0 Target HR:: 139 - THRR 123-139 Current RPD:: 12-13 Maximum Exercise HR:: 134 Resting Blood Pressure: 120/58 Maximum Exercise Blood Pressure: 134/68 Minimum SpO2 with exercise: 91 EKG Type: Sinus rhythm to sinus tachycardia with rare PAC and PVC - Home Exercise Home Exercise:: Yes Mode: Walking Frequency:: Daily Nutrition/Wt Mgmt - 60-Day - Visit Date of Eval: 07/13/22 Session Number:: 23 - Weight Management Height: 5 ft 4 in Weight:: 166 lb BMI: 28.5 Weight Goals Progress:: Progressing Psychosocial - 60-Day - Visit Date of Eval: 07/13/22 Session Number:: 23 - Psychosocial Test Tool Used:: PHQ-9 Questionnaire Referred to MD for counseling:: No - Referral to Behavioral Health PS - Interventions: Yes Attend Stress Management Classes, No Referral to Behavioral Health if PHQ-9 score >9:, No Referral to [facility], No Referral to Physician if PHQ-9 if score is 5-9: - Plan Interventions/Plan:: Assess stressors,coping strategies signs of derpression on admission, Instruct/assist pt to develop coping personal stress Mgt strategies, Instruct patient to recognize signs symptoms of depression, Instruct patient to recog Core Components - Initial Core Components - 30 DAYS Core Components - 60 DAYS - Visit Date of Eval: 07/13/22 Session Number:: 23 - Hypertension Hypertension Diagnosis:: Hypertension ICD-10 I10 Resting Blood Pressure:: 120/64 [place] [employer] Hypertension Guidelines: [place] [employer] Hypertension Guidelines. Normal BP Less than 120/80. Elevated BP 120/80. Hypertension Stage 1: BP 130-139/80-89. Hypertesnion Stage 2: BP 140 or higher/90 or higher. Hypertension Crisis: BP higher than 180/120 Peak Exercise Blood Pressure:: 132/76 Change in medication: No Outcomes/Goals: Able to verbalize/achieve optimal blood pressure <130/80, Incorporates diet changes exercise for blood pressure control by DC Interventions/plan: Instruct on optimal blood pressure, hypertension medications, Instruct on effects of sodium, alcohol, stress, exercise hypertension 60 day Reassessments:: Met - Exacerbation Mgmt Airway Clearance Reassessment: Demonstrates knowledge of O2 Rx with exercise - Medication Medication list reviewed:: Yes Taking medications 100% of the time:: Met Medication reassessment: Yes Pt demonstrates correct technique timing for MDI, Yes Pt demonstrates correct technique timing for DPI, Yes Pt demonstrates correct technique timing for NEB, Yes Pt demonstrates correct technique timing for spacer 60-day Reassessments:: Met - Diabetes Diabetes:: No - Heart Failure Documenting weight saroj: No Core Components - 90 DAYS Core Components - Final Patient Health Questionnaire 60-Day Re-eval Assessment 1. Little interest or pleasure in doing things: Not at all 2. Feeling down, depressed, or hopeless: Not at all 3. Trouble falling or staying asleep, or sleeping too much: Several days 4. Feeling tired or having little energy: Several days 5. Poor appetite or overeating: Several days 6. Feeling bad about yourself -- or that you are a failure or have let yourself or your family down: Not at all 7. Trouble concentrating on things, such as reading the newspaper or watching television: Not at all 8. Moving or speaking so slowly that other people could have noticed. Or the opposite - being so fidgety or restless that you have been moving around a lot more than usual: Not at all 9. Thoughts that you would be better off , or of hurting yourself in some way: Not at all How difficult have these problems made it for you to do your work, take care of things at home, or get along with other people?: Not difficult at all Total Score: 3 Knowledge Questionaire (BCKQ) - Information Information: [place] COPD Knowledge Questionnaire (BCKQ) This questionnaire is designed to find out what you know about your lung problem. It should be completed without help form anyone else. This usually takes between 10 and 20 minutes. Your answers will help us to find out what information you need to help you to understand and manage your lung condition. Morgan the knik which you think is the correct answer. Self-Efficacy 60-Day Re-eval Assessment We would like to (more content not included)... [facility] [place] - Individual Treatment Pl anon 06-17-2022 [place] - Individual Treatment Plan [facility] Pulmonary Rehab Reports [address] [place] [address] [place] - Individual Treatment Plan MR#: [id number] Acct: [id number] Name: DEBBIE MONTES I Rep #: [id number] : 1965 57 From: Jose Adames BROADCAST OPERATIONS ENGINEER, PAID INTERN, BS PCP: Dr. Kashif Bernard MD Exercise - 30-Day Assessment - Visit Date of Eval: 06/17/22 Session Number:: 12 - Physician Prescribed Exercise Modalities: Treadmill, Biodyne - Replaced w/Schwinn Airdyne, NuStep Intensity: 60-80% of age predicted maximum heart rate reserve Aerobic Exercise [30-60 min 3-7x/week]:: Progressing Milady-13 Current METSs:: 4.0 Target HR:: 139 - THRR 123-139 Current RPD:: 2-3 Maximum Exercise HR:: 144 Resting Blood Pressure: 130/70 - BPs have ranged > 130/80 @ rest lately EKG Type: Sinus rythm to sinus tachycardia without ectopy Current Minutes of Exercise: 59 - Home Exercise Home Exercise:: Yes Mode: Walking Nutrition/Wt Mgmt - 30-Day - Visit Date of Eval: 06/17/22 Session Number:: 12 - Weight Management Height: 5 ft 4 in Weight:: 163 lb - No weight change this 30-days BMI: 27.9 Weight Goals Progress:: Not progressing Psychosocial - 30-Day - Visit Date of Eval: 06/17/22 Session Number:: 12 - Psychosocial Test Tool Used:: PHQ-9 Questionnaire - Referral to Behavioral Health PS - Interventions: Yes Attend Stress Management Classes, No Referral to Behavioral Health if PHQ-9 score >9:, No Referral to [facility], No Referral to Physician if PHQ-9 if score is 5-9: - Plan Interventions/Plan:: Assess stressors,coping strategies signs of derpression on admission, Instruct/assist pt to develop coping personal stress Mgt strategies, Instruct patient to recognize signs symptoms of depression, Instruct patient to recog Oxygen Oxygen Titration 30D - Visit Date of Eval: 06/17/22 Session Number:: 12 - Reassessment Reassessment- 30 Days: Demonstrate knowledge of O2 Rx at rest w/exercise Breath Sounds:: Clear SpO2:: 96 - Range 94-96 at rest Core Components - Initial Core Components - 30 DAYS - Visit Date of Eval: 06/17/22 Session Number:: 12 - Hypertension Hypertension Diagnosis:: Hypertension ICD-10 I10 Resting Blood Pressure:: 143/88 [place] [employer] Hypertension Guidelines: [place] [employer] Hypertension Guidelines. Normal BP Less than 120/80. Elevated BP 120/80. Hypertension Stage 1: BP 130-139/80-89. Hypertesnion Stage 2: BP 140 or higher/90 or higher. Hypertension Crisis: BP higher than 180/120 Peak Exercise Blood Pressure:: 144/80 Change in medication: No Outcomes/Goals: Able to verbalize/achieve optimal blood pressure <130/80, Incorporates diet changes exercise for blood pressure control by DC Interventions/plan: Instruct on optimal blood pressure, hypertension medications, Instruct on effects of sodium, alcohol, stress, exercise hypertension 30 day Reassessments:: Progressing Core Components - 60 DAYS Core Components - 90 DAYS Core Components - Final Patient Health Questionnaire 30-Day Re-eval Assessment 1. Little interest or pleasure in doing things: Not at all 2. Feeling down, depressed, or hopeless: Not at all 4. Feeling tired or having little energy: Several days 5. Poor appetite or overeating: More than half the days 6. Feeling bad about yourself -- or that you are a failure or have let yourself or your family down: Several days 7. Trouble concentrating on things, such as reading the newspaper or watching television: Several days 8. Moving or speaking so slowly that other people could have noticed. Or the opposite - being so fidgety or restless that you have been moving around a lot more than usual: Not at all 9. Thoughts that you would be better off , or of hurting yourself in some way: Not at all How difficult have these problems made it for you to do your work, take care of things at home, or get along with other people?: Somewhat difficult Total Score: 5 Knowledge Questionaire (BCKQ) - Information Information: [place] COPD Knowledge Questionnaire (BCKQ) This questionnaire is designed to find out what you know about your lung problem. It should be completed without help form anyone else. This usually takes between 10 and 20 minutes. Your answers will help us to find out what information you need to help you to understand and manage your lung condition. Morgan the knik which you think is the correct answer. Self-Efficacy 30-Day Re-eval Assessment We would like to know how confident you are in doing certain activities. Please select your confidence level for:: Select your confidence level for the following using the scale 1-10 where 1 is not at all confident and 10 is totally confident. Your score is the average of all 6 responses. Fatigue: How confident are you that you can keep the fatigue caused by your disease fr (more content not included)... [facility] [place] - History AND Physicalon 05-13-2022 NC - History & Physical [facility] Pulmonary Rehab Reports [address] [place] [address] [place] - History Physical MR#: [id number] Acct: [id number] Name: DEBBIE MONTES I Rep #: [id number] : 1965 57 From: Jose Adames BROADCAST OPERATIONS ENGINEER, PAID INTERN, BS PCP: Dr. Kashif Bernard MD History of Present Illness Arrival date:: 05/13/22 Arrival time:: 12:53 Date of Referral:: 04/14/22 Date of Evaluation: 05/13/22 Referring Physician: Dr. Maria Field Primary Diagnosis: COPD, Severe Stage III mMRC Breathless Scale: When is the patient short of breath? Y/N Grade: Description of Breathlessness: 0 I only get breathless with strenuous exercise. 1 I get short of breath when hurrying on level ground or walking up a slight hill. 2 On level ground, I walk slower than people of the same age because of breathless, or have to stop for breath when walking at my own pace. 3 I stop for breath after walking 100 yards or after a few minutes on level ground. 4 I am too breathless to leave the house or I am breathless when dressing. Respiratory Problems: Yes: Fatigue, Wheezing, Able to Speak in Full Sentences, Anxiety, Panic, Dyspnea with Activity No: Dizziness, Ankle Swelling, Dyspnea at Rest, Dyspnea Lying Down Flat - Secretions Cough:: No Hx of Sleep Apnea: Yes Do you snore loudly (louder than talking or can be heard through closed doors)?: No Do you often feel tired/ fatigued/ sleepy during daytime?: Yes Has anyone observed you stop breathing during sleep?: No History of Hypertension (for STOP score): Yes STOP Results: Positive Home Medications: Home Medications montelukast 10 mg tablet 10 mg PO DAILY COPD 02/05/18 albuterol sulfate 90 mcg/actuation aerosol inhaler 2 puff inhalation Q4H PRN PRN Sob /Or Wheezing ##1 02/10/18 aspirin 81 mg chewable tablet 81 mg PO DAILY@0800 ##30 02/10/18 alprazolam 0.5 mg tablet 0.5 mg PO QHS PRN Anxiety 02/26/18 cetirizine 10 mg tablet 10 mg PO DAILY 04/12/18 ipratropium 0.5 mg-albuterol 3 mg (2.5 mg base)/3 mL nebulization soln 3 ml inhalation Q4H.RT PRN Shortness Of Breath 01/10/19 apixaban 5 mg tablet (Eliquis) 5 mg PO BID 01/06/21 citalopram 20 mg tablet 30 mg PO DAILY ANXIETY 01/07/21 budesonide-formoterol HFA 160 mcg-4.5 mcg/actuation aerosol inhaler 2 puff inhalation BID 07/19/21 furosemide 40 mg tablet (Lasix) 40 mg PO .PRN PRN edema #30 tabs 07/19/21 omeprazole 40 mg capsule,delayed release 40 mg PO DAILY 07/19/21 varenicline 1 mg tablet tablet PO 07/19/21 atorvastatin 40 mg tablet 40 mg PO QHS #90 tabs 09/27/21 amlodipine 10 mg tablet 10 mg PO DAILY 05/13/22 cyclobenzaprine 5 mg tablet 10 mg PO TID PRN Nasal Congestion 05/13/22 triamcinolone acetonide 1 spray BID 05/13/22 Allergies/Adverse Reactions: Allergies acetaminophen [From Vicodin] Adverse Reaction (Verified 07/19/21 11:03) Nausea/Vom/Diarrhea bupropion HCl [From Wellbutrin] Adverse Reaction (Verified 07/19/21 11:03) Nausea/Vom/Diarrhea hydrocodone bitartrate [From Vicodin] Adverse Reaction (Verified 07/19/21 11:03) Nausea/Vom/Diarrhea tetracycline Adverse Reaction (Verified 07/19/21 11:03) Nausea/Vom/Diarrhea Medical Utilization Do you use a peak flow meter at home?: No Do you use a spacer device with your inhalers?: Yes Number of hospital visits in the last year?: 0 Number of emergency room visits in the last year?: 0 Do you see your physician on a regular schedule?: Yes How often?: 3 months Advanced Directives - Advanced Directives Power of Maintenance Manager: No Living Will: No Advance Directives Information Provided: Yes Advance Directives on File: No DNR Order?:: No - MOLST See MOLST form: No Past Medical History - Covid-19 Screening Fever: No Unexplained muscle aches: No Current respiratory symptoms: Yes - Just normal COPD srelated symptoms Upper respiratory infections symptoms: No Gastro-intestinal symptoms: No Oiq-Mpvu-Omogjj symptoms: No Has tested positive for COVID-19 in last 30 days: No Date of testin05/13/22 - unvaccinated Had contact w/person w/symptoms or Covid-19 (+) last 14 days: No Has High Risk Exposures ID'd by Health dept/Inf Control team: No 65 years or older:: No Lives in Assisted Living facility:: No Has a chronic lung disease or moderate to severe asthma:: Yes Has a serious heart condition:: No Immunocompromised:: No Severely obese (Body Mass Index of 40 or higher):: No Diabetic:: No Has chronic kidney disease undergoing dialysis:: No Has liver disease:: No Medical History: Past Medical History (Last Updated 07/19/21 @ 11:15 by Isabel Hansen) Abnormal cardiac enzyme level R74.8 Abnormal electrocardiogram R94.31 Anxiety and depression F41.9, F32.9 Asthma exacerbation J45.901 Atherosclerotic heart disease of [place] coronary artery without angina pectoris I25.10 Mild COPD exacerbation J44.1 COPD with asthma J44.9 GERD (gastroesophageal reflux disease (more content not included)... [facility] [place] - Individual Treatment Pl anon 05-13-2022 [place] - Individual Treatment Plan [facility] Pulmonary Rehab Reports [address] [place] [address] [place] - Individual Treatment Plan MR#: [id number] Acct: [id number] Name: DEBBIE MONTES I Rep #: [id number] : 1965 57 From: Jose Adames BROADCAST OPERATIONS ENGINEER, PAID INTERN, BS PCP: Dr. Kashif Bernard MD General Information2 - General Information Admitting Diagnosis: COPD Secondary Diagnosis: Asthma, allergic rhinitis, tobacco use disorder Gold Classification:: GOLD 3: Severe - PFT FEV1:: 1.10 - 42% FVC:: 2.28 - 69% FEV1/FVC%:: 48 - Personal Learning Style/Barriers Personal Learning Style:: Audio/Visual, Written Barriers to Learning: Vision impaired Educational Classes NC: Living with Chronic Lung Disease: Initial Assessment, Breathing Retraining: Initial Assessment, Exercise: Initial Assessment, Quitting smoking: Initial Assessment - Education/Goals Individual Counseling: Initial Assessment: Nicotine/Smoking NC Patient Goals: Experience less dyspnea: Initial Assessment, Improve energy level: Initial Assessment, Improve the ability to cope with ADLs: Initial Assessment, Control panic/anxiety: Initial Assessment, Improve my quality of life: Initial Assessment, Reduce Stress/relaxation techniques: Initial Assessment Exercise - Initial Assessment - Visit Date of Eval: 05/13/22 Session Number:: 0 - Pre-pulm rehab evaluation - Problem/Goals Problems: Deconditioning, No regular exercise, Knowledge deficit exercise guidelines, Knowledge deficit exercise safety Goals:: Aerobic exercise 30-60 mins x 12 weeks [36 sessions] - Physician Prescribed Exercise Modalities: Treadmill, Airdyne, NuStep Frequency (days/week): 3 Duration (Minutes):: 30-45 Intensity: 60-80% of age predicted maximum heart rate reserve Current METSs:: 3.0. Target HR:: 115 - THRR 98-115 Resting Blood Pressure: 126/78 EKG Type: NSR - Plan Plan and Plan to Review:: Benefits of exercise, Core components of exercise, How to measure dyspnea level, How to monitor dyspnea level, Exercise intensity, Exercise safety guideline, Home exercise gu idelines, [place]: 3-4/11-13 Nutrition/Wt Mgmt - Initial - Visit Date of Eval: 05/13/22 Session Number:: 0 - ptre-pul rehab evaluation - Problems/Goals Goals: BMI 21-25 - Weight Management Admit Height:: 5 ft 4 in Admit Weight:: 151 lb Admit BMI:: 25.9 - Intervention Referral to dietitian:: No Will attend diet classes:: Yes Intervention/Plan: Instruct on ideal BMI set weight loss goal w/patient Psychosocial - Initial Assess - Visit Date of Eval: 05/13/22 Session Number:: 0 - Pre-pulm rehab evaluation - Problems/Goals Psychosocial Goals: 7. Improved Q.O.L. - Psychosocial Test Tool Used:: Pulmonary QOL, PHQ-9 Questionnaire - Referral to Behavioral Health PS - Interventions: Yes Attend Stress Management Classes, No Referral to Behavioral Health if PHQ-9 score >9:, No Referral to [facility], No Referral to Physician if PHQ-9 if score is 5-9: - Intervention/Plan: See List Interventions/Plan:: Assess stressors,coping strategies signs of derpression on admission, Instruct/assist pt to develop coping personal stress Mgt strategies, Instruct patient to recognize signs symptoms of depression, Instruct patient to recog Oxygen Oxygen Titration Init - Visit Date of Eval: 05/13/22 Session Number:: 0 - Pre-p[ulm rehab evaluation - Initial Assessment Oxygen on Admission: None Patient Reports:: Non-productive cough - Plans Plan: Monitor SpO2 rest with exercise Bronchial Hygiene Plan: Controlled cough, Vibratory PEP device, Hydration, Hand hygiene, Signs/symptoms to report: Core Components - Initial - Visit Date of Eval: 05/13/22 Session Number:: 0 - Pre-pulm rehab evaluation - Hypertension Hypertension Diagnosis:: Hypertension ICD-10 I10 BP: 128/78 [place] [employer] Hypertension Guidelines: [place] [employer] Hypertension Guidelines. Normal BP Less than 120/80. Elevated BP 120/80. Hypertension Stage 1: BP 130-139/80-89. Hypertesnion Stage 2: BP 140 or higher/90 or higher. Hypertension Crisis: BP higher than 180/120 Blood Pressure: 128/78 Low Sodium diet: Yes Outcomes/Goals: Able to verbalize/achieve optimal blood pressure <130/80, Incorporates diet changes exercise for blood pressure control by DC - Tobacco - Initial Assessment Tobacco Program Goals: Complete smoking cessation. Attend education classes. Improve Knowledge Test score Stages of Change:: Pre-contemplation Learning Barriers: Vision Do you have family support?: Yes Tobacco Use: Cigarettes How many cigarettes do you smoke per day?: 10 Years Smokin Do you use smokeless tobacco?: Yes - Vape Smoking Cessation Referral:: Yes Individual Education/Counseling: : Yes Education Schedule Given:: Yes Gave Education Materials For:: Tobacco Triggers, Pulmonary Disease, Risk Factors, Kinza (more content not included)... [facility] [id number] BLon 04-14 Alpha 1 antitrypsin [Mass/Vol] 163 mg/dL 90 - 200 mg/dL [facility] CT LUNG SCREEN WO IVCONon CT LUNG SCREEN WO IVCON * * *Final Repor t* * * DATE OF EXAM: Mar 15 2022 2:10PM [facility] [place] LUNG [place] WO IVCON / PROCEDURE REASON: multiple diagnoses * * * * Physician Interpretation * * * * EXAMINATION: CHEST CT WITHOUT CONTRAST (LOW-DOSE CT LUNG CANCER SCREENING PROTOCOL) CLINICAL HISTORY: Lung cancer LDCT screening ? absence of signs or symptoms of lung cancer. Nicotine dependence (cigarettes). Baseline (initial) Technique: Spiral CT acquisition of the chest from the thoracic inlet to the upper abdomen without contrast. MQ: [id number]_6 Patient characteristics: * Vntu-na-Zexyj: 1965; Age at exam: 57 years * Gender: Female * Lung Disease: Asymptomatic (no signs or symptoms of lung disease) * Number of Pack Years: 40 * Current smoker (=0) or Number of Years since Quit: 0 * Ordering provider and NPI: MARYANNE NOVOA [id number] * Interpreting radiologist and NPI: Christiano [id number] Exam acquisition parameters: * Exam Date: 03/15/2022 2:10 PM * Site: [facility] * * CT System Pitch Flaker: Easel Learn * CT System Model: [employer] * Tube Current-Time (mA-sec): 60 * Peak Voltage (kV): 120V * Scan Time (sec): 5.18 * Scan Volume (z-length, cm): 36.20 * Pitch: .984 * Slice Thickness (mm): 1.25 * CT Dose-Length Product: 105.53 mGy*cm * CT Dose Index: 2.65mGy * CT Dose Reduction Method: Iterative recon and mAs-kVp adjusted using patient size-age COMPARISON: Chest CT dated 12/30/2020. RESULT: Are nodules present? Yes, 1-5 nodules Nodule 1: This Solid nodule is located in the Right Upper Lobe on slice number 72 with an average diameter of 3.4 mm (3.8 mm x 2.9 mm). Nodule 2: This Solid nodule is located in the Right Upper Lobe on slice number 83 with an average diameter of 1.8 mm (2.3 mm x 1.3 mm). Nodule 3: This Solid nodule is located in the Right Upper Lobe on slice number 76 with an average diameter of 1.7 mm (1.7 mm x 1.7 mm). Other lung nodule comments: Small pulmonary nodules are stable since prior exam. Additional subpleural nodular opacities in the lung apices are likely scarring for example in the right upper lobe image 55. Other findings: The central airways are patent without endobronchial lesion. There is biapical pleural-parenchymal scarring. Linear atelectasis is noted in the right upper and middle lobes as well as lingula. No new focal consolidation. The the imaged thyroid gland is unremarkable. No thoracic lymphadenopathy. There are atherosclerotic calcifications of the thoracic aorta. The thoracic aorta and main pulmonary artery are normal in caliber. The cardiac chambers are normal in size. Mild coronary artery calcifications are seen. No pericardial effusion or pericardial thickening. The esophagus is nondilated. The imaged upper abdomen is stable without acute abnormality. There are atherosclerotic calcifications of the abdominal aorta. There are degenerative changes of the thoracic spine. The soft tissues of the chest wall are unremarkable.. Emphysema: Mild (5-25%), centrilobular, upper lobe Coronary Artery Calcifications: Circumflex mild; Left Anterior Descending mild; Right Coronary minimum Nurse Examiner (topogram) images: No additional findings. IMPRESSION: LungRADS category: 2 LungRADS modifier: None LungRADS 0 reason: n/a Recommendations: Continue annual screening with LDCT in 12 months. Other actionable findings: Reference: [employer]. Lung CT Screening Reporting and Data System (Lung-RADS). Available at: http://www.acr.org/Qu ality-Safety/Resource s/LungRADS Proposal Manager: GARY Transcribe Date/Time: Mar 15 2022 2:47P Dictated by : RYAN WALKER MD This examination was interpreted and the report reviewed and electronically signed by: RYAN WALKER MD on Mar 15 2022 2:57PM EST [id number] Normal [facility] SPIROMETRY BASELINE ONLYon 1 03-27-2021 DLCO (ml/min/mmHg) 12.20 ml/min/mmHg [facility] DLCO/VA (ml/min/mmHg/L) 2.90 ml/min/mmHg/L [facility] RUA72-97% PRE (L/S) 0.35 L/S [facility] FEV1 PRE (L) 1.10 L [facility] FEV1/FVC PRE (%) 48 % [facility] FVC PRE (L) 2.28 L [facility] PEF PRE (L/S) 2.58 L/S [facility] VA (L) 4.29 L [facility] Basophil percentageon 2021 Chloride [Moles/Vol] 104 mmol/L 98-107 [facility] Work Phone: Glucose [Mass/Vol] 72 mg/dL 74-106 [facility] Work Phone: Potassium [Moles/Vol] 3.1 mmol/L 3.5-5.1 [facility] Work Phone: Sodium [Moles/Vol] 139 mmol/L 136-145 [facility] Work Phone: Laboratory - Chemistry and C hemistry - challengeon 07-19-2021 CO2 [Moles/Vol] 33.0 mmol/L 21.0-32.0 [facility] Work Phone: Natriuretic peptide B (Bld) [Mass/Vol] 18.5 pg/mL 0-100 [facility] Work Phone: Urea nitrogen/Creatinine [Mass ratio] 6.7 mg/mg 10-20 [facility] Work Phone: No Panel Informationon 07-19 Estimated GFR (MDRD) Amer 104 mL/min >60 [facility] Work Phone: Comment on above: GFR Calc Estimated GFR (MDRD) Non-Af Amer 86 mL/min >60 [facility] Work Phone: Comment on above: Non- GFR Calc Serum or plasma calcium faye urement (mass/volume)on 07-19-2021 Calcium [Mass/Vol] 9.4 mg/dL 8.5-10.1 [facility] Work Phone: Serum or plasma creatinine m easurement (mass/volume)on 07-19-2021 Creatinine [Mass/Vol] 0.75 mg/dL 0.55-1.02 [facility] Work Phone: Comment on above: The validity of the calculated GFR & GFRAA in patients over 70 years has not been determined. Clinical correlation is essential. Serum or plasma urea nitroge n measurement (mass/volume)on 07-19-2021 Urea nitrogen [Mass/Vol] 5 mg/dL 7-18 [facility] Work Phone: Thin prep Papanicolaou smear with manual screeningon 07-19-2021 Thin prep Papanicolaou smear with manual screening 2 5-15 [facility] Work Phone: No Panel Informationon 06-14 [facility] XR KNEE GENERAL 4V AP BOTH/P A BOTH/LAT/MERC RIGHTon 06-14-2021 [facility] XR Knee - right 4 Viewson * * *Final Report* * * DATE OF EXAM: Jun 14 2021 9:26AM WOX 5203 - XR KNEE 4V AP/PA BOTH+LAT/DESIREE RT / PROCEDURE REASON: Acute pain of right knee * * * * Physician Interpretation * * * * Indication: Right knee pain Comparison: None AP, PA, lateral and merchant views of the right knee are obtained. There is normal architecture and mineralization of the bones. There is no acute fracture or dislocation. Joint spaces are maintained. Impression: 1. No acute fracture or dislocation. Proposal Manager[facility] Transcribe Date/Time: Jun 14 2021 9:34A Dictated by : CARYN BACON MD This examination was interpreted and the report reviewed and electronically signed by: CARYN BACON MD on Jun 14 2021 9:35AM EST [email or web address] E_DIVISION OF RADIOLOGY Provider, [facility] - 06/14/2021 * * *Final Report* * * DATE OF EXAM: Jun 14 2021 9:26AM WOX 5203 - XR KNEE 4V AP/PA BOTH+LAT/DESIREE RT / PROCEDURE REASON: Acute pain of right knee * * * * Physician Interpretation * * * * Indication: Right knee pain Comparison: None AP, PA, lateral and merchant views of the right knee are obtained. There is normal architecture and mineralization of the bones. There is no acute fracture or dislocation. Joint spaces are maintained. Impression: 1. No acute fracture or dislocation. Proposal Manager: GARY Transcribe Date/Time: Jun 14 2021 9:34A Dictated by : CARYN BACON MD This examination was interpreted and the report reviewed and electronically signed by: CARYN BACON MD on Jun 14 2021 9:35AM EST [facility] Radiology Study observation (narrative) Ugo shearer [facility] XR Knee - right 4 ViewsOrder ed By: Ccf Provider on 06-14-2021 [facility] XR CHEST 2V FRONTAL/LATon [facility] CNPNon 12-30-2020 PEARL Telephone (NISA) DEBBIE MONTES I ( ) 1965 F Date Time Provider Department 12/30/20 CHIP PAYNE During your visit today, we recorded the following information about you: Chip Payne MD 12/30/2020 1:02 PM Signed [facility] Respiratory [place], 12/30/2020: Name: Debbie Montes : 1965 Received a call at this time from Destinee, train control electronic technician at [facility]. Patient has CTA chest today with Irregularity of the distal right pulmonary artery, right upper lobe pulmonary artery and segmental pulmonary artery, without dilation of the arteries. Findings are felt to be representing chronic/subacute pulmonary embolism. This CTA ordered by my colleague Sayra Rowe PA-C when she saw the patient, complaining of chest pain, medium to high index of suspicion for pulmonary embolism, ordered D-dimer 12/28/2020 abnormal at 890 (normal <500). I have personally and independently reviewed the chart, and noted that the patient was recently in the emergency department at [facility] with complaints of chest pain, cardiac evaluation was negative for acute ischemic event. I have also personally and independently reviewed the chest CTA images. MEDICAL DECISION MAKING: Chest pain, medium to high index of suspicion for pulmonary embolism, abnormal D-dimer, CTA chest with intravascular filling defects in the right pulmonary artery consistent with pulmonary embolism of indeterminate age. I advised Destinee, train control electronic technician at [facility] to direct the patient to the emergency department at [facility] to evaluate for admission versus outpatient treatment. Chip Payne MD, [facility] [place] [facility] [address] [place] [id number] P: [phone] F: [phone] [email or web address] Allergies As of Date: 12/30/2020 Noted Allergy Reaction SILVADENE (SILVER SULFADIAZINE) 09/08/2006 5 - Intolerance TETRACYCLINE 09/08/2006 8 - GI Upset AUGMENTIN (AMOXICILLIN-POT CLAVUL*02/08/2011 8 - GI Upset CYMBALTA (DULOXETINE) 04/14/2011 14 - Other: See Comments Comments: GI upset; poor appetite EFFEXOR XR (VENLAFAXINE) 05/10/2001 6 - Diarrhea Comments: Thinks maybe might be able to tolerate like Celexa after a while SUDAFED (PSEUDOEPHEDRINE) 11/15/2006 5 - Intolerance Comments: heart racing TRAMADOL 06/10/2013 8 - GI Upset VICODIN (HYDROCODONE-ACETAMIN OPHE*11/27/2006 9 - Itching 11 - Vomiting Comments: [place] very off balance; can take codeine WELLBUTRIN SR (BUPROPION) 05/08/2007 1 - Mental Status Change Comments: felt stoned ZOLOFT (SERTRALINE HCL) 05/10/2001 6 - Diarrhea Date Reviewed: 12/29/2020 Reviewed by: RT Scott(R) - Fully Assessed Reason for Visit: Results [95] Cmt: Abnormal CTA chest today. Prescriptions as of 12/30/2020 - iv contrast (will be provided with radiology test) CT Chest PE -Inject, intravenously, once for 1 dose.No IV access, insert saline lock prior to the beginning of sedation, infusion, injection of imaging exam. Discontinue saline lock post exam. If Pt. has a central line or IVAD, may access for administration according to line specific nursing protocol. Once exam is complete flush line and de-access according to line specific nursing protocol in the CT contrast administration guidelines link. - amLODIPine (NORVASC) 10 mg tablet Take 1 tablet by mouth once daily. - citalopram (CELEXA) 20 mg tablet Take 1.5 tablets by mouth once daily. - ALPRAZolam (XANAX) 0.5 mg tablet Take 1 tablet by mouth at bedtime as needed for up to 60 days. - furosemide (LASIX) 20 mg tablet 1 daily as needed to manage swelling of feet and lower legs. - montelukast (SINGULAIR) 10 mg tablet Take 1 tablet by mouth daily at bedtime. - tiotropium bromide (SPIRIVA RESPIMAT) 2.5 mcg/actuation inhaler Inhale 2 Puffs as instructed once daily. - triamcinolone acetonide (NASACORT AQ) 55 mcg nasal inhaler Use 2 Sprays in each nostril once daily. - budesonide-formoterol (SYMBICORT) 160-4.5 mcg/actuation inhaler Inhale 2 Puffs as instructed twice daily. - cetirizine (ZYRTEC) 10 mg tablet Take 1 tablet by mouth once daily. - omeprazole (PRILOSEC) 20 mg capsule TAKE ONE CAPSULE BY MOUTH ONCE DAILY 30 MINUTES BEFORE BREAKFAST - albuterol HFA (PROVENTIL HFA, VENTOLIN HFA) 90 mcg/actuation inhaler Inhale 2 Puffs as instructed every 6 hours as needed for Wheezing/Shortness of Breath. - ipratropium-albuterol (DUONEB) 0.5 mg-3 mg(2.5 mg base)/3 mL nebu Inhale 3 mL as instructed every 6 hours as needed (wheezing/shortness of breath). - aspirin, enteric coated (ASPIRIN, ENTERIC COATED) 81 mg EC tablet Take 81 mg by mouth once daily. - atorvastatin (LIPITOR) 40 mg tablet Take 40 mg by mo (more content not included)... Normal [facility] XR Chest PA and Lateralon IMPRESSION: No acute radiographic abnormality. Proposal Manager: GARY Transcribe Date/Time: Feb 12 2020 3:00P Dictated by : CARYN BACON MD This examination was interpreted and the report reviewed and electronically signed by: CARYN BACON MD on Feb 12 2020 3:05PM [facility] DIVISION OF RADIOLOGY * * *Final Report* * * DATE OF EXAM: Feb 12 2020 2:57PM WOX 5291 - XR CHEST 2V FRONTAL/LAT / PROCEDURE REASON: Suspected COVID-19 virus infection * * * * Physician Interpretation * * * * EXAMINATION: CHEST RADIOGRAPH (2 VIEW FRONTAL & LATERAL) CLINICAL HISTORY: Suspected COVID-19 virus infection MQ: XC2_6 EXAM DATE/TIME: 02/12/2020 2:57 PM COMPARISON: Chest x-ray 02/20/2018 RESULT: Lines, tubes, and devices: None. Lungs and pleura: No consolidation. No lung mass. No pleural effusion. No pneumothorax. Cardiomediastinal silhouette: Normal cardiomediastinal silhouette. Bones and soft tissues: Unremarkable. DIVISION OF RADIOLOGY Provider, [facility] - 02/12/2020 * * *Final Report* * * DATE OF EXAM: Feb 12 2020 2:57PM WOX 5291 - XR CHEST 2V FRONTAL/LAT / PROCEDURE REASON: Suspected COVID-19 virus infection * * * * Physician Interpretation * * * * EXAMINATION: CHEST RADIOGRAPH (2 VIEW FRONTAL & LATERAL) CLINICAL HISTORY: Suspected COVID-19 virus infection MQ: XC2_6 EXAM DATE/TIME: 02/12/2020 2:57 PM COMPARISON: Chest x-ray 02/20/2018 RESULT: Lines, tubes, and devices: None. Lungs and pleura: No consolidation. No lung mass. No pleural effusion. No pneumothorax. Cardiomediastinal silhouette: Normal cardiomediastinal silhouette. Bones and soft tissues: Unremarkable. IMPRESSION IMPRESSION: No acute radiographic abnormality. Proposal Manager: [facility] Transcribe Date/Time: Feb 12 2020 3:00P Dictated by : CARYN BACON MD This examination was interpreted and the report reviewed and electronically signed by: CARYN BACON MD on Feb 12 2020 3:05PM [facility] Radiology Study observation (narrative) Ugo shearer [facility] XR Chest PA and LateralOrder ed By: Cc Provider on 02-12-2020 [facility] Vital Signs Date Time Vital Sign Value Performing Clinician Facility 08-05-2024 13:40-0400 Body mass index (BMI) [Ratio] 28 kg/m2 Kashif Bernard MD Work Phone: [facility] 08-05-2024 13:40-0400 Body weight 74 kg Kashif Bernard MD Work Phone: [facility] 08-05-2024 13:40-0400 Diastolic blood pressure 71 mm[Hg] Kashif Bernard MD Work Phone: [facility] 08-05-2024 13:40-0400 Heart rate 98 /min Kashif Bernard MD Work Phone: [facility] 08-05-2024 13:40-0400 Respiratory rate 16 /min Kashif Bernard MD Work Phone: [facility] 08-05-2024 13:40-0400 Systolic blood pressure 113 mm[Hg] Kashif Bernard MD Work Phone: [facility] 07-18-2024 13:04-0400 Body height 162.6 cm Dangelo Mast PIG MACHINE SUPERVISOR.DRILL PRESS OPERATOR HELPER Work Phone: [facility] 07-18-2024 13:04-0400 Body mass index (BMI) [Ratio] 28.15 kg/m2 Dangelo Mast PIG MACHINE SUPERVISOR.DRILL PRESS OPERATOR HELPER Work Phone: [facility] 07-18-2024 13:04-0400 Body weight 74.39 kg Dangelo Mast PIG MACHINE SUPERVISOR.DRILL PRESS OPERATOR HELPER Work Phone: [facility] 07-18-2024 13:04-0400 Diastolic blood pressure 79 mm[Hg] Dangelo Mcgrady PIG MACHINE SUPERVISOR.DRILL PRESS OPERATOR HELPER Work Phone: [facility] 07-18-2024 13:04-0400 Heart rate 91 /min Dangelo Mast PIG MACHINE SUPERVISOR.DRILL PRESS OPERATOR HELPER Work Phone: [facility] 07-18-2024 13:04-0400 SaO2% (BldA) [Mass fraction] 96 % Dangelochidi Mast PIG MACHINE SUPERVISOR.DRILL PRESS OPERATOR HELPER Work Phone: [facility] 07-18-2024 13:04-0400 Systolic blood pressure 126 mm[Hg] Dangelo Mcgrady PIG MACHINE SUPERVISOR.DRILL PRESS OPERATOR HELPER Work Phone: [facility] 06-13-2024 13:59-0400 Body height 162.6 cm Maria Field MD Work Phone: [facility] 06-13-2024 13:59-0400 Body mass index (BMI) [Ratio] 27.64 kg/m2 Maria Field MD Work Phone: [facility] 06-13-2024 13:59-0400 Body weight 73.03 kg Maria Field MD Work Phone: [facility] 06-13-2024 13:59-0400 Diastolic blood pressure 78 mm[Hg] Maria Field MD Work Phone: [facility] 06-13-2024 13:59-0400 Heart rate 102 /min Maria Field MD Work Phone: [facility] 06-13-2024 13:59-0400 Respiratory rate 16 /min Maria Field MD Work Phone: [facility] 06-13-2024 13:59-0400 SaO2% (BldA) [Mass fraction] 96 % Maria Field MD Work Phone: [facility] 06-13-2024 13:59-0400 Systolic blood pressure 112 mm[Hg] Maria Field MD Work Phone: [facility] 06-13-2024 13:49-0400 Body height 162.6 cm Pulm Wstr Work Phone: [facility] 06-13-2024 13:49-0400 Body mass index (BMI) [Ratio] 27.64 kg/m2 Pulm Wstr Work Phone: [facility] 06-13-2024 13:49-0400 Body weight 73.03 kg Pulm Wstr Work Phone: [facility] 06-13-2024 13:49-0400 Heart rate 102 /min Pulm Wstr Work Phone: [facility] 06-13-2024 13:49-0400 Respiratory rate 16 /min Pulm Wstr Work Phone: [facility] 06-13-2024 13:49-0400 SaO2% (BldA) [Mass fraction] 96 % Pulm Wstr Work Phone: [facility] 02-06-2024 09:34-0500 Body mass index (BMI) [Ratio] 27.62 kg/m2 Yuriy Bella MD Work Phone: [facility] 02-06-2024 09:34-0500 Body temperature 99.5 [degF] Yuriy Bella MD Work Phone: [facility] 02-06-2024 09:34-0500 Body weight 73 kg Yuriy Bella MD Work Phone: [facility] 02-06-2024 09:34-0500 Diastolic blood pressure 71 mm[Hg] Yuriy Bella MD Work Phone: [facility] 02-06-2024 09:34-0500 Heart rate 97 /min Yuriy Bella MD Work Phone: [facility] 02-06-2024 09:34-0500 Respiratory rate 21 /min Yuriy Bella MD Work Phone: [facility] 02-06-2024 09:34-0500 SaO2% (BldA) [Mass fraction] 95 % Yuriy Bella MD Work Phone: [facility] 02-06-2024 09:34-0500 Systolic blood pressure 120 mm[Hg] Yuriy Bella MD Work Phone: [facility] 02-02-2024 15:46-0500 Body mass index (BMI) [Ratio] 27.89 kg/m2 Kashif Bernard MD Work Phone: [facility] 02-02-2024 15:46-0500 Body temperature 98.2 [degF] Kashif Bernard MD Work Phone: [facility] 02-02-2024 15:46-0500 Body weight 73.7 kg Kashif Bernard MD Work Phone: [facility] 02-02-2024 15:46-0500 Diastolic blood pressure 60 mm[Hg] Kashif Bernard MD Work Phone: [facility] 02-02-2024 15:46-0500 Heart rate 85 /min Kashif Bernard MD Work Phone: [facility] 02-02-2024 15:46-0500 Respiratory rate 16 /min Kashif Bernard MD Work Phone: [facility] 02-02-2024 15:46-0500 SaO2% (BldA) [Mass fraction] 98 % Kashif Bernard MD Work Phone: [facility] 02-02-2024 15:46-0500 Systolic blood pressure 108 mm[Hg] Kashif Bernard MD Work Phone: [facility] 07-21-2023 15:18-0400 Body mass index (BMI) [Ratio] 28.67 kg/m2 Kashif Bernard MD Work Phone: [facility] 07-21-2023 15:18-0400 Body temperature 98.8 [degF] Kashif Bernard MD Work Phone: [facility] 07-21-2023 15:18-0400 Body weight 75.75 kg Kashif Bernard MD Work Phone: [facility] 07-21-2023 15:18-0400 Diastolic blood pressure 64 mm[Hg] Kashif Bernard MD Work Phone: [facility] 07-21-2023 15:18-0400 Heart rate 84 /min Kashif Bernard MD Work Phone: [facility] 07-21-2023 15:18-0400 Respiratory rate 18 /min Kashif Bernard MD Work Phone: [facility] 07-21-2023 15:18-0400 SaO2% (BldA) [Mass fraction] 97 % Kashif Bernard MD Work Phone: [facility] 07-21-2023 15:18-0400 Systolic blood pressure 114 mm[Hg] Kashif Bernard MD Work Phone: [facility] 04-10-2023 13:29-0500 Body temperature 98.8 [degF] Yuriy Bella MD Work Phone: [facility] 04-10-2023 13:29-0500 Body weight 75.3 kg Yuriy Bella MD Work Phone: [facility] 04-10-2023 13:29-0500 Diastolic blood pressure 70 mm[Hg] Yuriy Bella MD Work Phone: [facility] 04-10-2023 13:29-0500 Heart rate 102 /min Yuriy Bella MD Work Phone: [facility] 04-10-2023 13:29-0500 Respiratory rate 16 /min Yuriy Bella MD Work Phone: [facility] 04-10-2023 13:29-0500 SaO2% (BldA) [Mass fraction] 96 % Yuriy Bella MD Work Phone: [facility] 04-10-2023 13:29-0500 Systolic blood pressure 124 mm[Hg] Yuriy Bella MD Work Phone: [facility] 12-07-2022 15:29-0400 Body temperature 98.2 [degF] Yuriy Bella MD Work Phone: [facility] 12-07-2022 15:29-0400 Body weight 75.3 kg Yuriy Bella MD Work Phone: [facility] 12-07-2022 15:29-0400 Diastolic blood pressure 84 mm[Hg] Yuriy Bella MD Work Phone: [facility] 12-07-2022 15:29-0400 Heart rate 115 /min Yuriy Bella MD Work Phone: [facility] 12-07-2022 15:29-0400 Respiratory rate 21 /min Yuriy Bella MD Work Phone: [facility] 12-07-2022 15:29-0400 SaO2% (BldA) [Mass fraction] 97 % Yuriy Bella MD Work Phone: [facility] 12-07-2022 15:29-0400 Systolic blood pressure 120 mm[Hg] Yuriy Bella MD Work Phone: [facility] 08-05-2022 14:25-0400 Body temperature 98.29 [degF] Kashif Bernard MD Work Phone: [facility] 08-05-2022 14:25-0400 Body weight 74.84 kg Kashif Bernard MD Work Phone: [facility] 08-05-2022 14:25-0400 Diastolic blood pressure 62 mm[Hg] Kashif Bernard MD Work Phone: [facility] 08-05-2022 14:25-0400 Heart rate 80 /min Kashif Bernard MD Work Phone: [facility] 08-05-2022 14:25-0400 Respiratory rate 18 /min Kashif Bernard MD Work Phone: [facility] 08-05-2022 14:25-0400 SaO2% (BldA) [Mass fraction] 97 % Kashif Bernard MD Work Phone: [facility] 08-05-2022 14:25-0400 Systolic blood pressure 118 mm[Hg] Kashif Bernard MD Work Phone: [facility] 07-21-2022 14:37-0400 Body weight 75.3 kg Sayra Rowe PA-C Work Phone: [facility] 07-21-2022 14:37-0400 Diastolic blood pressure 72 mm[Hg] Sayra Rowe PA-C Work Phone: [facility] 07-21-2022 14:37-0400 Heart rate 91 /min Sayra Rowe PA-C Work Phone: [facility] 07-21-2022 14:37-0400 Respiratory rate 17 /min Sayra Rowe PA-C Work Phone: [facility] 07-21-2022 14:37-0400 SaO2% (BldA) [Mass fraction] 99 % Sayra Rowe PA-C Work Phone: [facility] 07-21-2022 14:37-0400 Systolic blood pressure 126 mm[Hg] Sayra Rowe PA-C Work Phone: [facility] 07-13-2022 08:15-0400 Body height 162.56 cm [facility] 07-13-2022 08:15-0400 Body weight 75.29 kg [facility] 06-17-2022 07:14-0400 Body height 162.56 cm [facility] 06-17-2022 07:14-0400 Body weight 73.93 kg [facility] 05-13-2022 14:00-0400 Body height 162.56 cm [facility] 05-13-2022 14:00-0400 Body mass index (BMI) [Ratio] 25.9 kg/m2 [facility] 05-13-2022 14:00-0400 Body weight 68.49 kg [facility] 05-13-2022 13:28-0400 Body temperature 98.6 [degF] [facility] 05-13-2022 13:28-0400 Diastolic blood pressure 78 mm[Hg] [facility] 05-13-2022 13:28-0400 Heart rate 110 /min [facility] 05-13-2022 13:28-0400 Respiratory rate 18 /min [facility] [facility] 05-13-2022 13:28-0400 SaO2% (BldA) [Mass fraction] 96 % [facility] 05-13-2022 13:28-0400 Systolic blood pressure 126 mm[Hg] [facility] 04-14-2022 14:40-0500 Body weight 71.22 kg Maria Field MD Work Phone: [facility] 04-14-2022 14:40-0500 Diastolic blood pressure 78 mm[Hg] Maria Field MD Work Phone: [facility] 04-14-2022 14:40-0500 Heart rate 91 /min Maria Field MD Work Phone: [facility] 04-14-2022 14:40-0500 Respiratory rate 18 /min Maria Field MD Work Phone: [facility] 04-14-2022 14:40-0500 SaO2% (BldA) [Mass fraction] 99 % Maria Field MD Work Phone: [facility] 04-14-2022 14:40-0500 Systolic blood pressure 124 mm[Hg] Maria Field MD Work Phone: [facility] 01-25-2022 14:11-0500 Body height 162.6 cm Maryanne Novoa APRN.DRILL PRESS OPERATOR HELPER Work Phone: [facility] 01-25-2022 14:11-0500 Body weight 68.95 kg Maryanne Novoa APRN.DRILL PRESS OPERATOR HELPER Work Phone: [facility] 01-25-2022 14:11-0500 Diastolic blood pressure 69 mm[Hg] Maryanne Novoa APRN.DRILL PRESS OPERATOR HELPER Work Phone: [facility] 01-25-2022 14:11-0500 Heart rate 80 /min Maryanne Novoa APRN.DRILL PRESS OPERATOR HELPER Work Phone: [facility] 01-25-2022 14:11-0500 SaO2% (BldA) [Mass fraction] 98 % Maryanne Novoa APRN.DRILL PRESS OPERATOR HELPER Work Phone: [facility] 01-25-2022 14:11-0500 Systolic blood pressure 111 mm[Hg] Maryanne Novoa APRN.DRILL PRESS OPERATOR HELPER Work Phone: [facility] 01-24-2022 15:20-0500 Body height 162.6 cm Pulm Wstr Work Phone: [facility] 01-24-2022 15:20-0500 Body weight 68.04 kg Pulm Wstr Work Phone: [facility] 01-20-2022 14:01-0500 Body weight 68.49 kg Sayra Jae PA-C Work Phone: [facility] 01-20-2022 14:01-0500 Diastolic blood pressure 78 mm[Hg] Sayra Jae PA-C Work Phone: [facility] 01-20-2022 14:01-0500 Heart rate 110 /min Sayra Jae PA-C Work Phone: [facility] 01-20-2022 14:01-0500 SaO2% (BldA) [Mass fraction] 96 % Sayra Jae PA-C Work Phone: [facility] 01-20-2022 14:01-0500 Systolic blood pressure 126 mm[Hg] Sayra Jae PA-C Work Phone: [facility] 12-14-2021 18:27-0500 Body weight 69.4 kg Kashif Bernard MD Work Phone: [facility] 12-14-2021 18:27-0500 Diastolic blood pressure 82 mm[Hg] Kashif Bernard MD Work Phone: [facility] 12-14-2021 18:27-0500 Heart rate 102 /min Kashif Bernard MD Work Phone: [facility] 12-14-2021 18:27-0500 SaO2% (BldA) [Mass fraction] 100 % Kashif Bernard MD Work Phone: [facility] 12-14-2021 18:27-0500 Systolic blood pressure 136 mm[Hg] Kashif Bernard MD Work Phone: [facility] 11-29-2021 15:50-0400 Body temperature 97.81 [degF] Guzman Bandar PIG MACHINE SUPERVISOR.DRILL PRESS OPERATOR HELPER Work Phone: [facility] 11-29-2021 15:50-0400 Body weight 69.04 kg Guzman Portillo PIG MACHINE SUPERVISOR.DRILL PRESS OPERATOR HELPER Work Phone: [facility] 11-29-2021 15:50-0400 Diastolic blood pressure 80 mm[Hg] Guzman Bandar PIG MACHINE SUPERVISOR.DRILL PRESS OPERATOR HELPER Work Phone: [facility] 11-29-2021 15:50-0400 Heart rate 105 /min Guzman Bandar PIG MACHINE SUPERVISOR.DRILL PRESS OPERATOR HELPER Work Phone: [facility] 11-29-2021 15:50-0400 Respiratory rate 18 /min Guzman Bandar PIG MACHINE SUPERVISOR.DRILL PRESS OPERATOR HELPER Work Phone: [facility] 11-29-2021 15:50-0400 SaO2% (BldA) [Mass fraction] 94 % Guzman Portillo PIG MACHINE SUPERVISOR.DRILL PRESS OPERATOR HELPER Work Phone: [facility] 11-29-2021 15:50-0400 Systolic blood pressure 132 mm[Hg] Guzman Bandar PIG MACHINE SUPERVISOR.DRILL PRESS OPERATOR HELPER Work Phone: [facility] 08-13-2021 12:10-0400 Body temperature 98.71 [degF] Nithin Pendlebury PIG MACHINE SUPERVISOR.DRILL PRESS OPERATOR HELPER Work Phone: [facility] 08-13-2021 12:10-0400 Body weight 69.13 kg Nithin Ruchi PIG MACHINE SUPERVISOR.DRILL PRESS OPERATOR HELPER Work Phone: [facility] 08-13-2021 12:10-0400 Diastolic blood pressure 82 mm[Hg] Nithin Pendlebury PIG MACHINE SUPERVISOR.DRILL PRESS OPERATOR HELPER Work Phone: [facility] 08-13-2021 12:10-0400 Heart rate 113 /min Nithin Pendlebury PIG MACHINE SUPERVISOR.DRILL PRESS OPERATOR HELPER Work Phone: [facility] 08-13-2021 12:10-0400 Respiratory rate 20 /min Nithin Pendlebury PIG MACHINE SUPERVISOR.DRILL PRESS OPERATOR HELPER Work Phone: [facility] 08-13-2021 12:10-0400 SaO2% (BldA) [Mass fraction] 97 % Nithin Pendlebury PIG MACHINE SUPERVISOR.DRILL PRESS OPERATOR HELPER Work Phone: [facility] 08-13-2021 12:10-0400 Systolic blood pressure 122 mm[Hg] Nithin Hopper APRN.DRILL PRESS OPERATOR HELPER Work Phone: [facility] 07-21-2021 13:27-0400 Body weight 70.76 kg Maryanne Novoa APRN.DRILL PRESS OPERATOR HELPER Work Phone: [facility] 07-21-2021 13:27-0400 Diastolic blood pressure 74 mm[Hg] Maryanne Novoa APRN.DRILL PRESS OPERATOR HELPER Work Phone: [facility] 07-21-2021 13:27-0400 Heart rate 95 /min Maryanne Novoa APRN.DRILL PRESS OPERATOR HELPER Work Phone: [facility] 07-21-2021 13:27-0400 SaO2% (BldA) [Mass fraction] 98 % Maryanne Novoa APRN.DRILL PRESS OPERATOR HELPER Work Phone: [facility] 07-21-2021 13:27-0400 Systolic blood pressure 139 mm[Hg] Maryanne Novoa APRN.DRILL PRESS OPERATOR HELPER Work Phone: [facility] 07-19-2021 10:55-0400 Body height 160.[address] Kashif Bernard Work Phone: [facility] Work Phone: 07-19-2021 10:55-0400 Body mass index (BMI) [Ratio] 27.4 kg/m2 Dr. Kashif Bernard Work Phone: [facility] Work Phone: 07-19-2021 10:55-0400 Body weight 70.[address] Kashif Bernard Work Phone: [facility] Work Phone: 07-19-2021 10:55-0400 Diastolic blood pressure 67 mm[Hg] Dr. Kashif Bernard Work Phone: [facility] Work Phone: 07-19-2021 10:55-0400 Heart rate 90 /min Dr. Kashif Bernard Work Phone: [facility] Work Phone: 07-19-2021 10:55-0400 Respiratory rate 18 /min Dr. Kashif Bernard Work Phone: [facility] Work Phone: 07-19-2021 10:55-0400 Systolic blood pressure 111 mm[Hg] Dr. Kashif Bernard Work Phone: [facility] Work Phone: 07-16-2021 10:43-0400 Body weight 69.4 kg Emy Renee PIG MACHINE SUPERVISOR.PLANNING SPECIALIST Work Phone: [facility] 07-16-2021 10:43-0400 Diastolic blood pressure 62 mm[Hg] Emy Renee PIG MACHINE SUPERVISOR.PLANNING SPECIALIST Work Phone: [facility] 07-16-2021 10:43-0400 Heart rate 100 /min Emy Renee PIG MACHINE SUPERVISOR.PLANNING SPECIALIST Work Phone: [facility] 07-16-2021 10:43-0400 SaO2% (BldA) [Mass fraction] 97 % Emy Renee PIG MACHINE SUPERVISOR.PLANNING SPECIALIST Work Phone: [facility] 07-16-2021 10:43-0400 Systolic blood pressure 116 mm[Hg] Emy Renee PIG MACHINE SUPERVISOR.PLANNING SPECIALIST Work Phone: [facility] 06-15-2021 17:32-0400 Body weight 70.31 kg Kashif Bernard MD Work Phone: [facility] 06-15-2021 17:32-0400 Diastolic blood pressure 72 mm[Hg] Kashif Bernard MD Work Phone: [facility] 06-15-2021 17:32-0400 Heart rate 82 /min Kashif Bernard MD Work Phone: [facility] 06-15-2021 17:32-0400 Systolic blood pressure 122 mm[Hg] Kashif Bernard MD Work Phone: [facility] 06-14-2021 08:55-0400 Body temperature 98.8 [degF] [facility] PIG MACHINE SUPERVISOR.DRILL PRESS OPERATOR HELPER Work Phone: [facility] 06-14-2021 08:55-0400 Body weight 70.4 kg [facility] PIG MACHINE SUPERVISOR.DRILL PRESS OPERATOR HELPER Work Phone: [facility] 06-14-2021 08:55-0400 Diastolic blood pressure 72 mm[Hg] [facility] PIG MACHINE SUPERVISOR.DRILL PRESS OPERATOR HELPER Work Phone: [facility] 06-14-2021 08:55-0400 Heart rate 113 /min [facility] PIG MACHINE SUPERVISOR.DRILL PRESS OPERATOR HELPER Work Phone: [facility] 06-14-2021 08:55-0400 Respiratory rate 20 /min [facility] PIG MACHINE SUPERVISOR.DRILL PRESS OPERATOR HELPER Work Phone: [facility] 06-14-2021 08:55-0400 SaO2% (BldA) [Mass fraction] 98 % [facility] PIG MACHINE SUPERVISOR.DRILL PRESS OPERATOR HELPER Work Phone: [facility] 06-14-2021 08:55-0400 Systolic blood pressure 130 mm[Hg] [facility] PIG MACHINE SUPERVISOR.DRILL PRESS OPERATOR HELPER Work Phone: [facility] 06-07-2021 11:01-0400 Body temperature 98.29 [degF] Elizabeth Kwan MD Work Phone: [facility] 06-07-2021 11:01-0400 Body weight 70.53 kg Elizabeth Kwan MD Work Phone: [facility] 06-07-2021 11:01-0400 Diastolic blood pressure 61 mm[Hg] Elizabeth Kwan MD Work Phone: [facility] 06-07-2021 11:01-0400 Heart rate 84 /min Elizabeth Kwan MD Work Phone: [facility] 06-07-2021 11:01-0400 SaO2% (BldA) [Mass fraction] 98 % Elizabeth Kwan MD Work Phone: [facility] 06-07-2021 11:01-0400 Systolic blood pressure 127 mm[Hg] Elizabeth Kwan MD Work Phone: [facility] Encounters Encounter Date Encounter Type Care Provider Facility Start: 10-26-2024 End: 10-26-2024 ambulatory KASHIF BERNARD Facility:[place] Start: 09-01-2024 End: 09-03-2024 Refill Kashif Bernard MD Work Phone: [facility] [place] Comment on above: Refill Request Start: 08-06-2024 End: 08-08-2024 Refill Sayra Rowe PA-C Work Phone: Pulmonary Medicine Comment on above: Refill Request Start: 08-06-2024 ambulatory KASHIF BERNARD Facilit y:[place] Start: 08-06-2024 End: 08-06-2024 Subsequent hospital visit by physician [facility] Work Phone: Radiology Comment on above: Elevated alkaline ph osphatase level [R74.8] Start: 08-05-2024 End: 08-05-2024 Office outpatient visit 25 minutes Kashif Bernard MD Work Phone: [facility] [place] Comment on above: Chronic left SI join t pain (Primary Dx); Acute dysfunction of left eustachian tube; Asthma-chronic obstructive pulmonary disease overlap syndrome (HCC); Elevated alkaline phosphatase level; Essential (primary) hypertension; Coronary artery disease involving [place] coronary artery of [place] heart without angina pectoris; Encounter for screening mammogram for breast cancer; Bilateral leg edema Start: 08-05-2024 End: 08-05-2024 ambulatory KASHIF BERNARD Facility:[place] Start: 07-22-2024 End: 07-23-2024 Follow-up encounter Dangelo Mast APRN.CNP Work Phone: Pulmonary Medicine Comment on above: Refill Request Start: 07-19-2024 End: 07-23-2024 Refill Kashif Bernard MD Work Phone: [facility] [place] Comment on above: Refill Request Start: 07-18-2024 End: 07-18-2024 Patient encounter procedure Dangelo Mast PIG MACHINE SUPERVISOR.DRILL PRESS OPERATOR HELPER Work Phone: Pulmonary Medicine Comment on above: Lung nodules (Primar y Dx); Encounter for screening for lung cancer; Former cigarette smoker Start: 07-18-2024 End: 07-18-2024 ambulatory KASHIF D NGHIAAMPAS Facility:[place] Start: 07-18-2024 End: 07-18-2024 Subsequent hospital visit by physician [facility] ([facility]) Work Phone: Cat Scan Comment on above: Encounter for screen ing for lung cancer [Z12.2] Start: 06-13-2024 End: 06-13-2024 Patient encounter procedure Pulm Lab [facility] Work Phone: PULM LAB [facility] Comment on above: Stage 3 severe COPD by GOLD classification (HCC) (Primary Dx); Former cigarette smoker; Lung nodules Start: 06-13-2024 End: 06-13-2024 ambulatory Pulm Lab [facility] Work Phone: [facility]ULM [facility] Comment on above: Spirometry Encounter for screen ing for lung cancer (Primary Dx); Former cigarette smoker Start: 04-15-2024 End: 04-15-2024 Refill Kashif Bernard MD Work Phone: [facility] [place] Comment on above: Refill Request Start: 03-08-2024 End: 03-11-2024 Refill Sayra Rowe PA-C Work Phone: Pulmonary Medicine Comment on above: Refill Request Start: 02-06-2024 End: 02-06-2024 ambulatory KASHIF D NGHIAAMPANGIE Facility:[place] Start: 02-06-2024 End: 02-06-2024 Office outpatient visit 15 minutes Yuriy Bella MD Work Phone: [facility] Comment on above: Influenza-like illne ss (Primary Dx) Start: 02-02-2024 End: 02-02-2024 Office outpatient visit 25 minutes Kashif Bernard MD Work Phone: [facility] [place] Comment on above: Essential hypertensi on (Primary Dx); Sinus congestion; Elevated alkaline phosphatase level; Seasonal allergies; Vitamin D deficiency; Stage 3 severe COPD by GOLD classification ([facility]); Hypercholesterolemia; Elevated hemoglobin A1c; Nasal congestion; History of pulmonary embolism; Post-nasal drainage; Gastro-esophageal reflux disease without esophagitis; Encounter for immunization; Encounter for long-term current use of medication; [facility] (current) use of anticoagulants Start: 02-02-2024 End: 02-02-2024 ambulatory KASHIF BERNARD Facility:[place] Start: 01-16-2024 End: 01-16-2024 ambulatory Marisol Velasco Click PIG MACHINE SUPERVISOR.DRILL PRESS OPERATOR HELPER Work Phone: Pulmonary Medicine Comment on above: Inhaler Request Start: 01-10-2024 End: 01-12-2024 Refill Kashif Bernard MD Work Phone: [facility] [place] Comment on above: Refill Request Start: 12-05-2023 End: 12-05-2023 ambulatory MARISOL M CLICK Facility:[place] Start: 12-05-2023 End: 12-05-2023 Office outpatient visit 40 minutes Marisol Velasco Click PIG MACHINE SUPERVISOR.DRILL PRESS OPERATOR HELPER Work Phone: Pulmonary Medicine Comment on above: Stage 3 severe COPD by GOLD classification ([facility]) (Primary Dx); Former cigarette smoker; History of pulmonary embolism; Lung nodules Start: 11-21-2023 End: 11-22-2023 Refill Kashif Bernard MD Work Phone: [facility] [place] Comment on above: Refill Request Start: 08-24-2023 Refill Kashif toro MD Work Phone: [facility] [place] Comment on above: Refill Request Start: 08-23-2023 Refill Kashif toro MD Work Phone: [facility] [place] Comment on above: Refill Request Start: 07-21-2023 End: 07-21-2023 Office outpatient visit 25 minutes Kashif Bernard MD Work Phone: [facility] [place] Comment on above: Sleep disturbance (P rimary Dx); Folliculitis; Vitamin D deficiency; Essential hypertension; Reactive depression; Panic disorder without agoraphobia; Hypercholesterolemia; Elevated hemoglobin A1c; Elevated alkaline phosphatase level; Encounter for long-term current use of medication Start: 07-06-2023 Refill Kashif toro MD Work Phone: [facility] [place] Comment on above: Refill Request Start: 06-28-2023 ambulatory Kashif toro MD Work Phone: Internal Medicine [facility] Start: 05-31-2023 Refill Yuriy alaniz MD Work Phone: [facility] Comment on above: Refill Request Start: 04-10-2023 End: 04-10-2023 Patient encounter procedure Yuriy Bella MD Work Phone: [facility] Comment on above: Acute non-recurrent sinusitis, unspecified location (Primary Dx) Start: 03-20-2023 Refill Sayra Lester PA-C Work Phone: Pulmonary Medicine Comment on above: Refill Request Start: 12-09-2022 Telephone encounter Ivy June y PA-C Work Phone: [facility] Comment on above: Results Start: 12-07-2022 End: 12-07-2022 Patient encounter procedure Yuriy Bella MD Work Phone: [facility] Comment on above: Urinary frequency (P rimary Dx) Start: 09-26-2022 ambulatory Kashif Bernard Facilit y:[facility] Start: 09-19-2022 Telephone encounter Kashif preston MD Work Phone: Internal [facility] Comment on above: Results Start: 09-16-2022 [facility] Facilit y:[facility] Start: 08-08-2022 End: 09-06-2022 [facility] Facility:[facility] Start: 08-05-2022 End: 08-05-2022 Office outpatient visit 25 minutes Kashif Bernard MD Work Phone: [facility] [place] Comment on above: Essential hypertensi on (Primary Dx); Mixed anxiety depressive disorder; Elevated hemoglobin A1c; Asthma with chronic obstructive pulmonary disease (COPD) ([facility]); Stage 3 severe COPD by GOLD classification ([facility]); Vitamin D deficiency; Neck pain; Colon cancer screening; Encounter for long-term current use of medication; On continuous oral anticoagulation Start: 08-03-2022 End: 08-06-2022 [facility] Work Phone: Start: 08-03-2022 End: 08-05-2022 Discharged Recurring [facility] Work Phone: Start: 07-21-2022 End: 07-21-2022 Patient encounter procedure Sayra Rowe PA-C Work Phone: Pulmonary Medicine Comment on above: Stage 3 severe COPD by GOLD classification ([facility]) (Primary Dx); Former cigarette smoker; Lung nodules; History of pulmonary embolism Start: 07-17-2022 Refill Kashif toro MD Work Phone: [facility] [place] Comment on above: Refill Request Start: 07-06-2022 End: 07-07-2022 [facility] Work Phone: Start: 07-06-2022 End: 07-06-2022 Discharged Recurring [facility] Start: 06-10-2022 Refill Emy PAULINO Work Phone: [facility] [place] Comment on above: Refill Request Start: 06-03-2022 End: 06-06-2022 ambulatory Kashif Bernard [facility] Work Phone: Start: 06-03-2022 End: 06-05-2022 Discharged Recurring [facility] Start: 05-13-2022 End: 05-13-2022 [facility] Start: 05-13-2022 End: 05-13-2022 Patient encounter procedure [facility] Start: 04-15-2022 Refill Kashif toro MD Work Phone: [facility] [place] Comment on above: Refill Request Start: 04-14-2022 End: 04-14-2022 Patient encounter procedure Maria Field MD Work Phone: Pulmonary Medicine Comment on above: Stage 3 severe COPD by GOLD classification (HCC) (Primary Dx); Former cigarette smoker; Lung nodules; History of pulmonary embolism Start: 03-15-2022 ambulatory UNKNOWN PROVIDER Facili ty:[facility] Start: 03-15-2022 End: 03-15-2022 Subsequent hospital visit by physician [facility] Radiology Comment on above: Smoker [F17.200] Start: 02-11-2022 Refill Kashif toro MD Work Phone: [facility] [place] Comment on above: Refill Request Start: 01-25-2022 End: 01-25-2022 Patient encounter procedure Maryanne Chamorro Sommer FORMANDRILL PRESS OPERATOR HELPER Work Phone: Pulmonary Medicine Comment on above: Encounter for screen ing for lung cancer (Primary Dx); Smoker; Lung nodules; Axillary adenopathy; Chronic obstructive pulmonary disease, unspecified COPD type (HCC) Start: 01-24-2022 End: 01-24-2022 ambulatory Pulm Lab [facility] Work Phone: PULM LAB [facility] Comment on above: Spirometry Start: 01-24-2022 End: 01-24-2022 Patient encounter procedure Pulm Lab [facility] Work Phone: [facility] Start: 01-20-2022 End: 01-20-2022 Patient encounter procedure Sayra Rowe PA-C Work Phone: Pulmonary Medicine Comment on above: Stage 3 severe COPD by GOLD classification (HCC) (Primary Dx); Tobacco use disorder; Pulmonary embolism, other, unspecified chronicity, unspecified whether acute cor pulmonale present (HCC) Start: 12-14-2021 End: 12-14-2021 Office outpatient visit 25 minutes Kashif Bernard MD Work Phone: [facility] [place] Comment on above: 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) (Primary Dx); Reactive depression; Panic disorder without agoraphobia; Encounter for immunization; Essential hypertension; Strain of neck muscle, sequela; Acute pulmonary embolism without acute cor pulmonale, unspecified pulmonary embolism type (HCC); Tobacco use disorder; Mixed anxiety depressive disorder Start: 11-29-2021 End: 11-29-2021 Patient encounter procedure Guzman Portillo PIG MACHINE SUPERVISOR.DRILL PRESS OPERATOR HELPER Work Phone: [facility] Comment on above: Neck pain (Primary D x) Start: 11-28-2021 Refill Kashif toro MD Work Phone: [facility] [place] Comment on above: Refill Request Start: 09-07-2021 Telephone encounter Kashif preston MD Work Phone: [facility] [place] Comment on above: Prescription Refills Start: 08-13-2021 End: 08-13-2021 Patient encounter procedure Nithin Ruchi PIG MACHINE SUPERVISOR.DRILL PRESS OPERATOR HELPER Work Phone: [facility] Comment on above: Suspected COVID-19 v irus infection (Primary Dx) Start: 07-21-2021 End: 07-21-2021 Patient encounter procedure Maryanne Novoa PIG MACHINE SUPERVISOR.DRILL PRESS OPERATOR HELPER Work Phone: Pulmonary Medicine Comment on above: Lung nodules (Primar y Dx); Screening for lung cancer; Smoker Start: 07-19-2021 End: 07-19-[address] Kashif Bernard Work Phone: [facility] Start: 07-19-2021 End: 07-19-[address] Kashif Bernard Work Phone: [facility] Start: 07-18-2021 Refill Kashif toro MD Work Phone: [facility] [place] Comment on above: Refill Request Start: 07-16-2021 End: 07-16-2021 Patient encounter procedure Emy Renee PIG MACHINE SUPERVISOR.PLANNING SPECIALIST Work Phone: [facility] [place] Comment on above: On continuous oral a nticoagulation (Primary Dx); Colon cancer screening; Acute pulmonary embolism without acute cor pulmonale, unspecified pulmonary embolism type (HCC); Encounter for screening mammogram for breast cancer; Screening for lung cancer; Tobacco use disorder Start: 07-09-2021 E-mail encounter fro m caregiver Kashif Bernard MD Work Phone: [facility] Start: 07-09-2021 Follow-up encounter Kashif preston MD Work Phone: [facility] [place] Comment on above: Follow-up appointmen t Start: 06-15-2021 End: 06-15-2021 Office outpatient visit 25 minutes Kashif Bernard MD Work Phone: [facility] [place] Comment on above: Seasonal allergies; Asthma with chronic obstructive pulmonary disease (COPD) (HCC); Panic disorder without agoraphobia Start: 06-14-2021 Telephone encounter Nithin sunshine APRN.DRILL PRESS OPERATOR HELPER Work Phone: [facility] Comment on above: Results Start: 06-14-2021 End: 06-14-2021 Subsequent hospital visit by physician [facility] Work Phone: Radiology Comment on above: Acute pain of right knee [M25.561] Start: 06-14-2021 End: 06-14-2021 Subsequent hospital visit by physician [facility] [place] Work Phone: Radiology Comment on above: Acute pain of right knee [M25.561] Start: 06-14-2021 End: 06-14-2021 Patient encounter procedure Nithin Hopper APRN.DRILL PRESS OPERATOR HELPER Work Phone: [facility] Comment on above: Acute pain of right knee (Primary Dx) Start: 06-07-2021 End: 06-07-2021 Telephone encounter Elizabeth Kwan MD Work Phone: Hematology/Oncology Comment on above: Results Tobacco use disorder (Primary Dx); Acute pulmonary embolism without acute cor pulmonale, unspecified pulmonary embolism type (HCC); Family history of thrombophlebitis Start: 06-07-2021 End: 06-07-2021 Patient encounter procedure Elizabeth Kwan MD Work Phone: [facility] Start: 05-21-2021 End: 05-21-2021 Patient encounter procedure Sayra Rowe PA-C Work Phone: Pulmonary Medicine Comment on above: COPD with exacerbati on (HCC) (Primary Dx); Cough; Tobacco use disorder; Acute pulmonary embolism without acute cor pulmonale, unspecified pulmonary embolism type (HCC) Start: 02-12-2020 End: 02-12-2020 Subsequent hospital visit by physician [facility] [place] Work Phone: Radiology Comment on above: Suspected COVID-19 v irus infection [Z20.822] Procedures Date Procedure Procedure Detail Performing Clinician Start: 08-06-2024 Us abdominal real ti me w/image limited Kashif Bernard MD Work Phone: Start: 07-18-2024 Lipid 1996 panel - S mary or Plasma Ct (I-Stat) Work Phone: Start: 06-13-2024 Brncdilat rspse spmt ry pre&post-brncdilat admn Marisol Amanda PIG MACHINE SUPERVISOR.DRILL PRESS OPERATOR HELPER Work Phone: Start: 02-06-2024 INFLUENZA A&B MOLECU LAR (POC) Yuriy Bella MD Work Phone: Start: 03-06-2023 Lipid 1996 panel - S mary or Plasma Sayra Rowe PA-C Work Phone: Start: 12-07-2022 Urnls dip stick/tabl et rgnt auto w/o microscopy Addie Mathew PIG MACHINE SUPERVISOR.DRILL PRESS OPERATOR HELPER Work Phone: Start: 03-15-2022 CT LUNG SCREEN WO IVCON Maryanne Novoa PIG MACHINE SUPERVISOR.DRILL PRESS OPERATOR HELPER Work Phone: Start: 01-24-2022 Spmtry w/vc expirato ry louann w/wo mxml vol vntj Laura BIRCH Work Phone: Start: 12-14-2021 INFLUENZA VACCINE QUADRIVALENT 6 MO - 64 YRS IM Kashif Bernard MD Work Phone: Start: 06-14-2021 Dup-scan xtr veins unilateral/limited study Nithin Hopper PIG MACHINE SUPERVISOR.[employer] Work Phone: Start: 06-14-2021 Radiologic exam knee complete 4/more views Nithin Hopper APRN.CNP Work Phone: Start: 12-22-2020 Lipid 1996 panel - S mary or Plasma Yuriy Bella MD Work Phone: Start: 02-12-2020 Radiologic exam ches t 2 views Kingsley Murray PIG MACHINE SUPERVISOR.DRILL PRESS OPERATOR HELPER Work Phone: Start: 09-10-2018 Mammography Sayra sorensen PA-C Work Phone: Plan of Treatment Date Care Activity Detail Author Start: 07-18-2029 Lipid panel Lipid Screening [facility] Start: 03-06-2028 Lipid panel Lipid Screening [facility] Start: 08-01-2027 Urine microalbumin profile [facility] Start: 07-19-2027 Diabetes Screening Diabetes Screening [facility] Start: 03-06-2026 Diabetes Screening Diabetes Screening [facility] Start: 12-22-2025 Lipid 1996 panel - Serum or Plasma Lipid Screening [facility] Start: 12-22-2025 LIPID SCREEN LIPID SCREEN [facility] Start: 09-08-2025 COLOGUARD (FIT-DNA) COLOGUARD (FIT-DNA) [facility] Start: 09-08-2025 COLORECTAL CANCER SCREENING COLORECTAL CANCER SCREENING [facility] Start: 09-08-2025 Screening for malignant neoplasm of colon [facility] Start: 09-02-2025 End: 09-02-2025 Patient encounter procedure 09/02/2025 2:00 PM EDT Office Visit Internal Medicine [facility] [address] [place] [id number] Kashif Bernard MD [address] [place] [id number] 6 month f/u [facility] Comment on above: 6 month f/u Start: 08-05-2025 Annual PCP Team Chronic Disease Visit Annual PCP Team Chronic Disease Visit [facility] Start: 08-05-2025 Hepatitis B Vaccine (1 of 3 - 19+ 3-dose series) Hepatitis B Vaccine (1 of 3 - 19+ 3-dose series) [facility] Comment on above: Postponed from 1985 (Declined at t his time) Start: 08-05-2025 Pneumococcal Vaccine: 50+ (2 of 2 - PCV) Pneumococcal Vaccine: 50+ (2 of 2 - PCV) [facility] Comment on above: Postponed from 01/09/2018 (Declined at t his time) Start: 08-05-2025 Shingrix Vaccine (1 of 2) Shingrix Vaccine (1 of 2) [facility] Comment on above: Postponed from 01/05/2016 (Declined at t his time) Start: 07-21-2025 End: 07-21-2025 Patient encounter procedure Cat Scan Comment on above: 1 yr follow up Start: 07-18-2025 Screening for malignant neoplasm of lung Lung Cancer Screening [facility] Start: 06-13-2025 BP Controlled (<130/80) BP Controlled (<130/80) [facility] Start: 04-03-2025 HPV TESTING HPV TESTING [facility] Start: 04-03-2025 PAP TESTING PAP TESTING [facility] Start: 04-03-2025 Screening for malignant neoplasm of cervix [facility] Start: 02-05-2025 End: 02-05-2025 Patient encounter procedure 02/05/2025 3:00 PM EST Office Visit Internal Medicine [place] [address] [place] [address] Kashif Bernard MD [address] [place] [address] 6 month follow up [facility] Medicine [facility] Comment on above: 6 month follow up Start: 02-05-2025 BP Controlled (<130/80) BP Controlled (<130/80) [facility] Start: 02-01-2025 Annual PCP Team Chronic Disease Visit Annual PCP Team Chronic Disease Visit [facility] Start: 12-17-2024 End: 12-17-2024 Patient encounter procedure 12/17/2024 11:45 AM EST Office Visit Pulmonary Medicine [address] [place] [phone] Maria Field MD [address] [place] [id number] Return in about 6 months Pulmonary Medicine Comment on above: Return in about 6 months Start: 12-04-2024 BP Controlled (<130/80) BP Controlled (<130/80) [facility] Start: 10-07-2024 Influenza vaccination Influenza Vaccine (#1) [place] [facility] Start: 08-05-2024 End: 08-05-2024 Patient encounter procedure 08/05/2024 2:40 PM EDT Office Visit Internal Medicine [place] [address] [place], [place] [phone] Kashif Bernard MD [address] [facility] [place], [place] [id number] 6 month follow up [facility] [place] Comment on above: 6 month follow up Start: 07-20-2024 Annual PCP Team Chronic Disease Visit Annual PCP Team Chronic Disease Visit [facility] Start: 07-20-2024 BP Controlled (<130/80) BP Controlled (<130/80) [facility] Start: 07-20-2024 Covid-19 Vaccine ( season) Covid-19 Vaccine () [facility] Comment on above: Postponed from 10/07/2022 (Declined at t his time) Start: 07-02-2024 End: 10-01-2024 ALK PHOS ISOENZYM BL ALK PHOS ISOENZYM BL Lab Routine Elevated alkaline phosphatase level Expected: 07/02/2024 (Approximate), Expires: 10/01/2024 [facility] Comment on above: Expected: 07/02/2024 (Approximate), Expi res: 10/01/2024 Start: 07-02-2024 End: 10-01-2024 CBC panel - Blood by Automated count COMPLETE BLOOD COUNT Lab Routine Essential hypertension Encounter for long-term current use of medication Expected: 07/02/2024 (Approximate), Expires: 10/01/2024 [facility] Comment on above: Expected: 07/02/2024 (Approximate), Expi res: 10/01/2024 Start: 07-02-2024 End: 10-01-2024 Comprehensive metabolic 2000 panel - Serum or Plasma COMPREHENSIVE METABOLIC PANEL Lab Routine Essential hypertension Encounter for long-term current use of medication Expected: 07/02/2024 (Approximate), Expires: 10/01/2024 [facility] Comment on above: Expected: 07/02/2024 (Approximate), Expi res: 10/01/2024 Start: 07-02-2024 End: 10-01-2024 Hemoglobin A1c in Blood HEMOGLOBIN A1C Lab Routine Elevated hemoglobin A1c Encounter for long-term current use of medication Expected: 07/02/2024 (Approximate), Expires: 10/01/2024 [facility] Comment on above: Expected: 07/02/2024 (Approximate), Expi res: 10/01/2024 Start: 07-02-2024 End: 10-01-2024 Lipid 1996 panel - Serum or Plasma LIPID PANEL BASIC Lab Routine Hypercholesterolemia Encounter for long-term current use of medication Expected: 07/02/2024 (Approximate), Expires: 10/01/2024 [facility] Work Phone: Comment on above: Expected: 07/02/2024 (Approximate), Expi res: 10/01/2024 Start: 07-02-2024 End: 10-01-2024 Magnesium [Mass/volume] in Serum or Plasma MAGNESIUM Lab Routine Encounter for long-term current use of medication Expected: 07/02/2024 (Approximate), Expires: 10/01/2024 [facility] Comment on above: Expected: 07/02/2024 (Approximate), Expi res: 10/01/2024 Start: 06-13-2024 End: 06-13-2024 Patient encounter procedure 06/13/2024 2:15 PM EDT Office Visit Pulmonary Medicine [address] [place] [phone] Maria Field MD [address] [place] [phone] 6 MTH F/U COPD Pulmonary Medicine Comment on above: 6 MTH F/U COPD Start: 06-13-2024 End: 06-13-2024 ambulatory PULM LAB [facility] Comment on above: 6 MTH F/U COPD Start: 06-07-2024 DIABETES SCREEN DIABETES SCREEN [facility] Start: 06-07-2024 Diabetes Screening Diabetes Screening [facility] Start: 04-09-2024 BP Controlled (<130/80) BP Controlled (<130/80) [facility] Start: 03-06-2024 Annual PCP Team Chronic Disease Visit Annual PCP Team Chronic Disease Visit [facility] Start: 03-06-2024 BP Controlled (<130/80) BP Controlled (<130/80) [facility] Start: 02-12-2024 End: 02-12-2024 Patient encounter procedure Cat Scan Comment on above: F/U LUNG SCREENING Start: 02-02-2024 End: 02-02-2024 Patient encounter procedure 02/02/2024 3:20 PM EST Office Visit Internal Medicine [facility] [address] [place], [place] [phone] Kashif Bernard MD [address] [place], [place] [phone] 6 month follow up Internal Medicine [facility] Comment on above: 6 month follow up Start: 12-26-2023 DIABETES SCREEN DIABETES SCREEN [facility] Start: 12-08-2023 Medicare Annual Wellness Visit Medicare Annual Wellness Visit [facility] Start: 10-08-2023 Covid-19 Vaccine ( season) Covid-19 Vaccine ( season) [facility] Start: 10-08-2023 Influenza vaccination [facility] Start: 08-14-2023 End: 08-14-2023 Patient encounter procedure Cat Scan Comment on above: annual [facility]ct [facility] @ 8a Start: 08-06-2023 ANNUAL PCP TEAM CHRONIC DISEASE VISIT ANNUAL PCP TEAM CHRONIC DISEASE VISIT [facility] Start: 08-06-2023 BP CONTROLLED (<130/80) BP CONTROLLED (<130/80) [facility] Start: 08-06-2023 COVID-19 VACCINE (#1) COVID-19 VACCINE (#1) [facility] Comment on above: Postponed from 1966 (Declined at t his time) Start: 08-06-2023 HEPATITIS B (1 of 3 - 3-dose series) HEPATITIS B (1 of 3 - 3-dose series) [facility] Comment on above: Postponed from 1966 (Declined at t his time) Start: 08-06-2023 Hepatitis B Vaccine (1 of 3 - 19+ 3-dose series) Hepatitis B Vaccine (1 of 3 - 19+ 3-dose series) [facility] Comment on above: Postponed from 1985 (Declined at t his time) Start: 08-06-2023 Hepatitis B Vaccine (1 of 3 - 3-dose series) Hepatitis B Vaccine (1 of 3 - 3-dose series) [facility] Comment on above: Postponed from 1966 (Declined at t his time) Start: 08-06-2023 PNEUMOCOCCAL (2 - PCV) PNEUMOCOCCAL (2 - PCV) [facility] Comment on above: Postponed from 01/09/2018 (Declined at t his time) Start: 08-06-2023 Pneumococcal vaccination [facility] Comment on above: Postponed from 01/09/2018 (Declined at t his time) Start: 08-06-2023 SHINGRIX VACCINE (1 of 2) SHINGRIX VACCINE (1 of 2) [facility] Comment on above: Postponed from 01/05/2016 (Declined at t his time) Start: 07-22-2023 BP CONTROLLED (<130/80) BP CONTROLLED (<130/80) [facility] Start: 07-21-2023 End: 07-21-2023 Patient encounter procedure 07/21/2023 3:00 PM EDT Office Visit Internal Medicine [facility] [address] [place] [address] Kashif Bernard MD [address] [place] [address] 6 mo follow up Internal Medicine [facility] Comment on above: 6 mo follow up Start: 07-21-2023 End: 10-20-2023 25-hydroxyvitamin D3 [Mass/volume] in Serum or Plasma VITAMIN D 25 HYDROXY Lab Routine Vitamin D deficiency Expected: 07/21/2023, Expires: 10/20/2023 [facility] Comment on above: Expected: 07/21/2023, Expires: Start: 07-21-2023 End: 10-20-2023 ALK PHOS ISOENZYM BL ALK PHOS ISOENZYM BL Lab Routine Elevated alkaline phosphatase level Expected: 07/21/2023, Expires: 10/20/2023 [facility] Comment on above: Expected: 07/21/2023, Expires: Start: 07-21-2023 End: 10-20-2023 CBC panel - Blood by Automated count COMPLETE BLOOD COUNT Lab Routine Essential hypertension Expected: 07/21/2023, Expires: 10/20/2023 [facility] Comment on above: Expected: 07/21/2023, Expires: Start: 07-21-2023 End: 10-20-2023 Comprehensive metabolic 2000 panel - Serum or Plasma COMPREHENSIVE METABOLIC PANEL Lab Routine Essential hypertension Elevated hemoglobin A1c Elevated alkaline phosphatase level Expected: 07/21/2023, Expires: 10/20/2023 [facility] Comment on above: Expected: 07/21/2023, Expires: 4 Start: 07-21-2023 End: 10-20-2023 Hemoglobin A1c in Blood HEMOGLOBIN A1C Lab Routine Elevated hemoglobin A1c Expected: 07/21/2023, Expires: 10/20/2023 [facility] Work Phone: Comment on above: Expected: 07/21/2023, Expires: 4 Start: 07-21-2023 End: 10-20-2023 Lipid 1996 panel - Serum or Plasma LIPID PANEL BASIC Lab Routine Hypercholesterolemia Expected: 07/21/2023, Expires: 10/20/2023 [facility] Comment on above: Expected: 07/21/2023, Expires: Start: 07-21-2023 End: 10-20-2023 Magnesium [Mass/volume] in Serum or Plasma MAGNESIUM Lab Routine Encounter for long-term current use of medication Expected: 07/21/2023, Expires: 10/20/2023 [facility] Comment on above: Expected: 07/21/2023, Expires: Start: 04-15-2023 BP CONTROLLED (<130/80) BP CONTROLLED (<130/80) [facility] Start: 03-15-2023 Influenza vaccination LUNG CANCER SCREENING [facility] Start: 03-15-2023 Screening for malignant neoplasm of lung Lung Cancer Screening [facility] Start: 01-25-2023 BP CONTROLLED (<130/80) BP CONTROLLED (<130/80) [facility] Start: 01-20-2023 BP CONTROLLED (<130/80) BP CONTROLLED (<130/80) [facility] Start: 12-14-2022 ANNUAL PCP TEAM CHRONIC DISEASE VISIT ANNUAL PCP TEAM CHRONIC DISEASE VISIT [facility] Start: 12-09-2022 End: 03-10-2023 Bacteria identified in Urine by Culture URINE CULTURE Microbiology Routine Urinary frequency Expected: 12/09/2022, Expires: 03/10/2023 [facility] Work Phone: Comment on above: Expected: 12/09/2022, Expires: Start: 10-07-2022 Covid-19 Vaccine () Covid-19 Vaccine () [facility] Start: 10-07-2022 Influenza vaccination INFLUENZA (#1) [facility] Start: 08-05-2022 End: 10-05-2022 25-hydroxyvitamin D3 [Mass/volume] in Serum or Plasma VITAMIN D 25 HYDROXY Lab Routine Vitamin D deficiency Expected: 08/05/2022, Expires: 10/05/2022 [facility] Work Phone: Comment on above: Expected: 08/05/2022, Expires: 3 Start: 08-05-2022 End: 10-05-2022 CBC panel - Blood by Automated count CBC Lab Routine Encounter for long-term current use of medication Expected: 08/05/2022, Expires: 10/05/2022 [facility] Work Phone: Comment on above: Expected: 08/05/2022, Expires: 3 Start: 08-05-2022 End: 10-05-2022 Comprehensive metabolic 2000 panel - Serum or Plasma COMP METABOLIC PANEL Lab Routine Encounter for long-term current use of medication Expected: 08/05/2022, Expires: 10/05/2022 [facility] Work Phone: Comment on above: Expected: 08/05/2022, Expires: 3 Start: 08-05-2022 End: 10-05-2022 Hemoglobin A1c in Blood HGB A1C Lab Routine Elevated hemoglobin A1c Expected: 08/05/2022, Expires: 10/05/2022 [facility] Work Phone: Comment on above: Expected: 08/05/2022, Expires: 3 Start: 08-05-2022 End: 10-05-2022 Magnesium [Mass/volume] in Serum or Plasma MAGNESIUM BLD Lab Routine Encounter for long-term current use of medication Expected: 08/05/2022, Expires: 10/05/2022 [facility] Work Phone: Comment on above: Expected: 08/05/2022, Expires: 3 Start: 07-16-2022 BP CONTROLLED (<130/80) BP CONTROLLED (<130/80) [facility] Start: 06-15-2022 ANNUAL PCP TEAM CHRONIC DISEASE VISIT ANNUAL PCP TEAM CHRONIC DISEASE VISIT [facility] Start: 06-15-2022 BP CONTROLLED (<130/80) BP CONTROLLED (<130/80) [facility] Start: 06-07-2022 BP CONTROLLED (<130/80) BP CONTROLLED (<130/80) [facility] Start: 05-21-2022 BP CONTROLLED (<130/80) BP CONTROLLED (<130/80) [facility] Start: 05-13-2022 [facility] Start: 01-26-2022 ANNUAL PCP TEAM CHRONIC DISEASE VISIT ANNUAL PCP TEAM CHRONIC DISEASE VISIT [facility] Start: 11-30-2021 ANNUAL PCP TEAM CHRONIC DISEASE VISIT ANNUAL PCP TEAM CHRONIC DISEASE VISIT [facility] Start: 11-30-2021 BP CONTROLLED (<130/80) BP CONTROLLED (<130/80) [facility] Start: 11-30-2021 COVID-19 VACCINE (#1) COVID-19 VACCINE (#1) [facility] Comment on above: Postponed from 1971 (Declined at t his time) Postponed from 07/04 (Declined at this time) Start: 11-30-2021 COVID-19 VACCINE (1) COVID-19 VACCINE (1) [facility] Comment on above: Postponed from 1971 (Declined at t his time) Start: 10-07-2021 Influenza vaccination [facility] Start: 06-07-2021 End: 08-07-2021 HYPERCOAG DIAG PNL HYPERCOAG DIAG PNL Lab Routine Acute pulmonary embolism without acute cor pulmonale, unspecified pulmonary embolism type (HCC) Family history of thrombophlebitis Expected: 06/07/2021, Expires: 08/07/2021 [facility] Work Phone: Comment on above: Expected: 06/07/2021, Expires: Start: 2021 Influenza vaccination LUNG CANCER SCREENING [facility] Start: 09-11-2019 Mammography [facility] Start: 09-11-2019 Screening for malignant neoplasm of breast Mammogram Screening [facility] Start: 11-02-2018 COLORECTAL CANCER SCREENING COLORECTAL CANCER SCREENING [facility] Start: 11-02-2018 FECAL OCCULT BLOOD FECAL OCCULT BLOOD [facility] Start: 11-02-2018 Screening for malignant neoplasm of colon Fecal Occult Blood [facility] Start: 01-09-2018 PNEUMOCOCCAL (2 - PCV) PNEUMOCOCCAL (2 - PCV) [facility] Start: 01-09-2018 Pneumococcal vaccination Pneumococcal Vaccine (2 of 2 - PCV) [facility] Start: 01-09-2018 Pneumococcal Vaccine: 50+ (2 of 2 - PCV) Pneumococcal Vaccine: 50+ (2 of 2 - PCV) [facility] Start: 01-05-2016 Influenza vaccination LUNG CANCER SCREENING [facility] Start: 01-05-2016 SHINGRIX VACCINE (1 of 2) SHINGRIX VACCINE (1 of 2) [facility] Start: 2011 COLOGUARD (FIT-DNA) COLOGUARD (FIT-DNA) [facility] Start: 2011 Colonoscopy COLONOSCOPY [facility] Start: [address] COLONOGRAPHY [facility] Start: 2011 Screening for malignant neoplasm of colon [facility] Start: 2011 SIGMOIDOSCOPY SIGMOIDOSCOPY [facility] Start: 01-05-1996 Zoledronic acid therapy ALPHA-1 ANTITRYPSIN DEFICIENCY SCREENING [facility] Start: 1985 Hepatitis B Vaccine (1 of 3 - 19+ 3-dose series) Hepatitis B Vaccine (1 of 3 - 19+ 3-dose series) [facility] Start: 1966 COVID-19 VACCINE (#1) COVID-19 VACCINE (#1) [facility] Start: 1966 HEPATITIS B (1 of 3 - 3-dose series) HEPATITIS B (1 of 3 - 3-dose series) [facility] Bacteria identified in Urine by Culture URINE CULTURE Microbiology Routine Urinary frequency 12/07/2022 3:50 PM EDT [facility] Work Phone: COLOGUARD COLOGUARD Lab Ro utine Colon cancer screening Ordered: 08/05/2022 [facility] Work Phone: Comment on above: Ordered: 08/05/2022 COVID & INFLUENZA A/ B & RSV NAAT, ROUTINE COVID & INFLUENZA A/B & RSV NAAT, ROUTINE Microbiology Routine Acute non-recurrent sinusitis, unspecified location 04/10/2023 3:10 PM EST [facility] Work Phone: COVID & INFLUENZA A/ B & RSV PCR, ROUTINE COVID & INFLUENZA A/B & RSV PCR, ROUTINE Microbiology Routine Influenza-like illness 02/06/2024 10:18 AM EST [facility] Work Phone: End: 07-13-2025 CT Chest for screening WO contrast CT LUNG SCREEN WO IVCON Radiology Routine Encounter for screening for lung cancer Former cigarette smoker 1 Occurrences starting 06/13/2024 until 07/13/2025 [facility] Work Phone: Comment on above: 1 Occurrences starting 06/13/2024 until 07/13/2025 CT Chest for screeni ng WO contrast CT LUNG SCREEN WO IVCON Radiology Routine Encounter for screening for lung cancer Former cigarette smoker 07/18/2024 11:57 AM EDT [facility] Work Phone: End: 08-17-2025 CT Chest for screening WO contrast CT LUNG SCREEN WO IVCON Radiology Routine Encounter for screening for lung cancer Former cigarette smoker 1 Occurrences starting 07/18/2024 until 08/17/2025 [facility] Work Phone: Comment on above: 1 Occurrences starting 07/18/2024 until 08/17/2025 CT LUNG SCREEN WO IVCON CT LUNG SCREEN WO IVCON Radiology Routine Smoker Encounter for screening for lung cancer Ordered: 01/25/2022 [facility] Work Phone: Comment on above: Ordered: 01/25/2022 End: 09-04-2025 DBT Breast - bilateral screening ESA SCREENING W PEDRO Radiology Routine Encounter for screening mammogram for breast cancer 1 Occurrences starting 08/05/2024 until 09/04/2025 [facility] Work Phone: Comment on above: 1 Occurrences starting 08/05/2024 until 09/04/2025 End: 04-15-2023 Echocardiography ECHO Cardiology Routine Stage 3 severe COPD by GOLD classification (HCC) 1 Occurrences starting 04/14/2022 until 04/15/2023 [facility] Work Phone: Comment on above: 1 Occurrences starting 04/14/2022 until 04/15/2023 Hemoglobin.gastroint christine nal.lower [Presence] in Stool by Immunoassay FECAL OCCULT BLOOD TEST Lab Routine Colon cancer screening Ordered: 07/16/2021 [facility] Work Phone: Comment on above: Ordered: 07/16/2021 Influenza virus A an d B RNA and SARS-CoV-2 (COVID-19) N gene panel - Respiratory specimen by ANSON with probe detection COVID WITH FLUA+B, ROUTINE Microbiology Routine Suspected COVID-19 virus infection Ordered: 08/13/2021 [facility] Work Phone: Comment on above: Ordered: 08/13/2021 End: 01-03-2025 LUNG DIFFUSION CAPACITY (DLCO) LUNG DIFFUSION CAPACITY (DLCO) PFT Routine Stage 3 severe COPD by GOLD classification (HCC) 1 Occurrences starting 12/05/2023 until 01/03/2025 [facility] Comment on above: 1 Occurrences starting 12/05/2023 until 01/03/2025 End: 07-27-2024 MG Breast Screening ESA SCREENING Radiology Routine Encounter for screening mammogram for breast cancer 1 Occurrences starting 06/28/2023 until 07/27/2024 [facility] Work Phone: Comment on above: 1 Occurrences starting 06/28/2023 until 07/27/2024 End: 08-15-2022 Screening mammography bi 2-view breast inc cad ESA SCREENING Radiology Routine Encounter for screening mammogram for breast cancer 1 Occurrences starting 07/16/2021 until 08/15/2022 [facility] Work Phone: Comment on above: 1 Occurrences starting 07/16/2021 until 08/15/2022 End: 01-03-2025 SPIROMETRY WITH DILATOR IF OBSTRUCTED SPIROMETRY WITH DILATOR IF OBSTRUCTED PFT Routine Stage 3 severe COPD by GOLD classification (HCC) 1 Occurrences starting 12/05/2023 until 01/03/2025 [facility] Work Phone: Comment on above: 1 Occurrences starting 12/05/2023 until 01/03/2025 [facility] Immunizations Immunization Date Immunization Notes Care Provider [facility] 02-02-2024 influenza, seasonal, injectable Yuriy Bella MD Work Phone: [facility] 02-02-2024 influenza virus vacc ine, unspecified formulation 2 Work Phone: [facility] 11-05-2022 Seasonal, quadrivale nt, recombinant, injectable influenza vaccine, preservative free Sayra Rowe PA-C Work Phone: [facility] Work Phone: 11-05-2022 influenza virus vacc ine, unspecified formulation Kashif Bernard MD Work Phone: [facility] 12-14-2021 influenza, injectabl e, quadrivalent, contains preservative Kashif Bernard MD Work Phone: [facility] 02-06-2020 influenza, injectabl e, quadrivalent, contains preservative Sayra Rowe PA-C Work Phone: [facility] Work Phone: 11-25-2018 influenza, seasonal, injectable Sarya Aje PA-C Work Phone: [facility] Work Phone: 11-20-2017 influenza, injectabl e, quadrivalent, contains preservative Sayra Jae PA-C Work Phone: [facility] 11-20-2017 influenza, injectabl e, quadrivalent, preservative free Sayra Jae PA-C Work Phone: [facility] 10-21-[address] Kashif Bernard Work Phone: [facility] 07-31-2017 tetanus toxoid, redu negro diphtheria toxoid, and acellular pertussis vaccine, adsorbed Sayra Jae PA-C Work Phone: [facility] Work Phone: 01-09-2017 pneumococcal polysaccharide vaccine, 23 valent Sayra Jae PA-C Work Phone: [facility] 11-21-2016 influenza, injectabl e, quadrivalent, contains preservative Sayra Jae PA-C Work Phone: [facility] Work Phone: 11-07-[address] Kashif Bernard Work Phone: [facility] 01-03-2012 influenza virus vacc ine, unspecified formulation Sayra Jae PA-C Work Phone: [facility] Work Phone: 01-19-2011 tetanus toxoid, redu negro diphtheria toxoid, and acellular pertussis vaccine, adsorbed Sayra Jae PA-C Work Phone: [facility] 03-06-2010 influenza virus vacc ine, unspecified formulation Sayra Jae PA-C Work Phone: [facility] Payers Date Payer Category Payer Medicare [id number] 2023 Medicare [id number] 2021 Self-pay [id number] 2021 Unknown [id number] 2019 Medicaid [place] [employer] MED[place] [id number] 2019-[facility] [phone] [address] [place] [address] Medicaid [id number] 2019 Medicaid [id number] Unknown [id number] Unknown [id number] Unknown [id number] Unknown [id number] Unknown [id number] Unknown [id number] Unknown [id number] Unknown [id number] Social History Date Type Detail Facility Start: 1982 End: 10-25-2019 Tobacco smoking status MSIS Smokes tobacco daily [facility] Work Phone: Start: 02-07-1980 End: 03-11-2022 History of tobacco use Cigarette Smoker [facility] Work Phone: Start: 08-08-2019 End: 07-21-2022 Cigarettes smoked current (pack per day) - Reported 0.5 [facility] Start: 08-08-2019 End: 12-05-2023 Tobacco use and exposure Smokeless tobacco non-user [facility] Work Phone: Start: 05-21-2021 End: 08-05-2024 Alcohol intake Current drinker of alcohol (finding) [facility] Start: 01-24-2021 History SDOH Alcohol Frequency 1 [facility] Start: 01-24-2021 History SDOH Alcohol Std Drinks 98 [facility] Start: 11-14-2006 History SDOH Alcohol Comment rarely [facility] Start: 01-24-2021 History SDOH Social Connections Phone 5 [facility] Start: 01-24-2021 History SDOH Social Connections Membership 2 [facility] Start: 01-24-2021 History SDOH Physical Activity DPW 0 [facility] Start: 01-24-2021 History SDOH Stress 3 [facility] Start: 10-22-2019 Education 14 [facility] Start: 10-25-2019 Tobacco Comment 1/2 PPD, relapse since early 2019. Down to half PPD or lower --doing better (10/25/19) [facility] Start: 1965 Sex Assigned At Female [facility] Start: 06-07-2021 Tobacco Comment Pt has cut back to 4 cigarettes daily. [facility] Start: 01-13-2020 End: 12-14-2021 Exposure to SARS-CoV-2 (event) Not sure [facility] Start: 07-19-2021 End: 05-13-2022 Tobacco smoking status NHIS Unknown if ever smoked [facility] Start: 02-07-2018 Occasional [facility] Start: 02-07-2018 None [facility] Start: 02-07-2018 Alone [facility] Start: 02-10-2018 Cigarettes [facility] Start: 07-21-2021 End: 11-29-2021 Tobacco Comment started age 16 - sometimes less than 1/2 pack sometimes more [facility] Start: 01-20-2022 Tobacco Comment started age 16 - currently 0-4 cig per day [facility] Start: 01-25-2022 Tobacco Comment started age 16 - currently 0-4 cig per day. Quit in the past for 1 year. [facility] Start: 04-14-2022 End: 12-05-2023 Tobacco smoking status NHIS Ex-smoker [facility] Work Phone: Start: 02-07-1980 End: 03-11-2022 History of tobacco use Current smoker [facility] Work Phone: Start: 07-21-2022 Tobacco Comment started age 16 [facility] Start: 01-23-2021 End: 07-21-2022 Social connection and isolation panel [facility] Do you belong to any clubs or organizations such as jain groups, unions, fraternal or athletic groups, or school groups? No [facility] Are you now , , , , never or living with a partner? [facility] How often to you hav e a drink containing alcohol? Never [facility] How many standard dr inks containing alcohol do you have on a typical day? Patient refused [facility] How hard is it for y ou to pay for the very basics like food, housing, medical care, and heating Hard [facility] Do you feel stress - tense, restless, nervous, or anxious, or unable to sleep at night because your mind is troubled all the time - these days [OSQ] To some extent [facility] (I/We) worried whesiena er (my/our) food would run out before (I/we) got money to buy more. Sometimes true [facility] The food that (I/we) bought just didn't last, and (I/we) didn't have money to get more. Never true [facility] In the past 12 month s, was there a time when you were not able to pay the mortgage or rent on time? Yes [facility] Start: 08-02-2020 Gender identity Identifies as female gender (finding) [facility] Start: 08-02-2020 Sexual orientation Heterosexual (finding) [facility] How hard is it for y ou to pay for the very basics like food, housing, medical care, and heating Very hard [facility] How hard is it for y ou to pay for the very basics like food, housing, medical care, and heating Somewhat hard [facility] Do you feel stress - tense, restless, nervous, or anxious, or unable to sleep at night because your mind is troubled all the time - these days [OSQ] Very much [facility] Functional Status Date Assessment Result Facility 09-04-2014 Are you deaf, or do you have serious difficulty hearing No 09/04/2014 11:09 AM EDT Terri Benson LPN No [facility] 09-04-2014 Are you blind, or do you have serious difficulty seeing, even when wearing glasses No 09/04/2014 11:09 AM Terri Mendoza LPN No [facility] 09-04-2014 Do you have serious difficulty walking or climbing stairs No 09/04/2014 11:09 AM EDT Terri Benson LPN No [facility] 09-04-2014 Do you have difficul ty dressing or bathing No 09/04/2014 11:09 AM ERICKAT Terri Benson LPN No [facility] 09-04-2014 Because of a physica l, mental, or emotional condition, do you have difficulty doing errands alone such as visiting a physician's office or shopping No 09/04/2014 11:09 AM ERICKAT Terri Benson LPN No [facility] Mental Status Date Assessment Result Facility 09-04-2014 Because of a physica l, mental, or emotional condition, do you have serious difficulty concentrating, remembering, or making decisions No 09/04/2014 11:09 AM EDT Terri Benson LPN No [facility] Clinical Notes 02-12-2020 to 10-26-2024 Telephone Encounter - Maria Katz MA - 09/03/2024 9:38 AM EDTTelephone Encounter - Maria Katz MA - 09/03/2024 9:38 AM Poornima Walker RDMS - 08/06/2024 11:30 AM EDT Note Date & Type Note Facility 10-26-2024 Note HNO ID: [id number] Author: KASHIF BERNARD MD Service: ? Author Type: Licensed Nurse Type: Progress Notes Filed: 10/26/2024 12:29 Note Text: Qualification for Home O2 O2 % Room Air at Rest 96% O2 % Room Air During Ambulation 66% O2 Add Oxygen Liter Flow 2 LPM O2 % On Oxygen During Ambulation 95% [facility] 10-26-2024 Note HNO ID: [id number] Author: KASHIF BERNARD MD Service: ? Author Type: Physician Type: Progress Notes Filed: 10/26/2024 12:28 Note Text: Subjective Debbie Montes is a 59 year old female. HPI SUBJECTIVE: Debbie Montes is a 59-year-old female with a history of severe COPD and asthma-COPD overlap syndrome, presenting with dyspnea on exertion. Debbie reports a recent worsening of dyspnea on exertion, noting that activities such as walking across a room or taking a shower cause significant shortness of breath. She does not have a home pulse oximeter. She denies waking up frequently with dyspnea but does experience a jolt upon waking and not sure whether was due to trouble with breathing. She keeps her inhalers in bed and uses them before getting up. She does not use CPAP (no diagnosis of MEKA). Has a nebulizer at home. Debbie is currently taking albuterol, Breztri, Cymbalta, ipratropium, DuoNeb, Singulair, and Spiriva. She has a follow-up appointment with her aerial installer, Dr. Maria Field, on December 17. Her most recent pulmonary function tests in June showed severe COPD and decreased diffusing capacity. 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 Current Outpatient Medications Medication Sig zolpidem (AMBIEN) 5 mg tablet Take 1 tablet by mouth at bedtime as needed for up to [address] (PROTONIX) 40 mg tablet Take 1 tablet by mouth once daily. furosemide (LASIX) 20 mg tablet 1 daily as needed to manage swelling of feet and lower legs. albuterol HFA (PROVENTIL HFA, VENTOLIN HFA) 90 mcg/actuation inhaler INHALE 2 PUFFS BY MOUTH EVERY 6 HOURS NEEDED FOR WHEEZING AND FOR SHORTNESS OF BREATH diclofenac, EC, (VOLTAREN) 50 mg EC tablet Take 1 tablet by mouth three times a day as needed (Left SI joint pain). tiotropium bromide (SPIRIVA RESPIMAT) 2.5 mcg/actuation inhaler Inhale 2 puffs as instructed once daily. inhale 2 puffs by mouth once daily budesonide-formoterol (BREYNA) 160-4.5 mcg/actuation inhaler Inhale 2 puffs as instructed two times a day. citalopram (CELEXA) 40 mg tablet Take 1 tablet by mouth once daily. apixaban (ELIQUIS) 5 mg tab(s) Take 1 tablet by mouth two times a day. montelukast (SINGULAIR) 10 mg tablet Take 1 tablet by mouth daily at bedtime. cetirizine (ZYRTEC) 10 mg tablet Take 1 tablet by mouth once daily. atorvastatin (LIPITOR) 40 mg tablet Take 1 tablet by mouth once daily. ipratropium bromide (ATROVENT) 42 mcg (0.06 %) nasal spray Use 2 Sprays in the nose four times a day as needed (nasal congestion and runny nose). amLODIPine (NORVASC) 10 mg tablet Take 1 tablet by mouth once daily. ipratropium-albuterol (DUONEB) 0.5 mg-3 mg(2.5 mg base)/3 mL nebu Inhale 3 mL as instructed every 6 hours as needed (wheezing/shortness of breath). triamcinolone acetonide (NASACORT AQ) 55 mcg nasal inhaler Use 2 Sprays in each nostril once daily. aspirin, enteric coated (ASPIRIN, ENTERIC COATED) 81 mg EC tablet Take 81 mg by mouth once daily. FINGER PULSE OXIMETER 1 each as needed. Home pulse ox --exertional hypoxia needing home oxygen. Check pulse ox as needed Misc[employer] Overnight pulse oximetry on room air. Has hypoxia with exertion. Wakes up at night sometimes SOB. No current facility-administered medications for this visit. Review of Systems Objective BP 132/60 Pulse 99 Resp 16 Wt 73 kg (160 lb 15 oz) LMP 02/19/2015 SpO2 96% BMI 27.62 kg/m? O2 % Room Air at Rest 96% O2 % Room Air During Ambulation 66% O2 Add Oxygen Liter Flow 2 LPM O2 % On Oxygen During Ambulation 95% Physical Exam Constitutional: Appearance: Normal appearance. HENT: Head: Normocephalic. Eyes: Conjunctiva/sclera: Conjunctivae normal. Cardiovascular: Rate and Rhythm: Normal rate and regular rhythm. Heart sounds: Normal heart sounds. Pulmonary: Effort: Pulmonary effort is normal. Breath sounds: Normal breath sounds. Musculoskeletal: Right lower leg: No edema. Left lower leg: No edema. Skin: General: Skin is warm and dry. Neurological: General: No focal deficit present. Mental Status: She is alert and oriented to person, place, and time. Psychiatric: Mood and Affect: Mood normal. Behavior: Behavior normal. Thought Content: Thought content normal. Judgment: Judgment normal. # Hypoxia (R09.02) # Stage 3 severe COPD by GOLD classification ([facility]) (J44.9) # Asthma-chronic obstructive pulmonary disease overlap syndrome ([facility]) (more content not included)... [facility] 09-03-2024 Telephone encounter Note Patient has been identified by name and date of : yes Patient phones for refill(s): Requested Prescriptions Pending Prescriptions Disp Refills pantoprazole DR (PROTONIX) 40 mg tablet 90 tablet 1 Sig: Take 1 tablet by mouth once daily. furosemide (LASIX) 20 mg tablet 30 tablet 0 Si daily as needed to manage swelling of feet and lower legs. Date of last office visit in primary care: 08/05/2024 Date of next office visit in primary care: 02/05/2025 Please advise. Thank you. Maria Katz MA. [facility] 09-03-2024 Miscellaneous Notes Patient has been identified by name and date of : yes Patient phones for refill(s): Requested Prescriptions Pending Prescriptions Disp Refills pantoprazole DR (PROTONIX) 40 mg tablet 90 tablet 1 Sig: Take 1 tablet by mouth once daily. furosemide (LASIX) 20 mg tablet 30 tablet 0 Si daily as needed to manage swelling of feet and lower legs. Date of last office visit in primary care: 08/05/2024 Date of next office visit in primary care: 02/05/2025 Please advise. Thank you. Maria Katz MA. documented in this encounter [facility] 08-06-2024 Telephone encounter Note [facility] 06/13/24 Patient phones requesting refills as follows: Requested Prescriptions Pending Prescriptions Disp Refills albuterol HFA (PROVENTIL HFA, VENTOLIN HFA) 90 mcg/actuation inhaler [Pharmacy Med Name: Albuterol Sulfate HFA 108 (90 Base) MCG/ACT Inhalation Aerosol Solution] 7 g 0 Sig: INHALE 2 PUFFS BY MOUTH EVERY 6 HOURS NEEDED FOR WHEEZING AND FOR SHORTNESS OF BREATH Please review and advise. Shannan Magdaleno LPN [facility] 08-06-2024 Miscellaneous Notes [facility] 06/13/24 Patient phones requesting refills as follows: Requested Prescriptions Pending Prescriptions Disp Refills albuterol HFA (PROVENTIL HFA, VENTOLIN HFA) 90 mcg/actuation inhaler [Pharmacy Med Name: Albuterol Sulfate HFA 108 (90 Base) MCG/ACT Inhalation Aerosol Solution] 7 g 0 Sig: INHALE 2 PUFFS BY MOUTH EVERY 6 HOURS NEEDED FOR WHEEZING AND FOR SHORTNESS OF BREATH Please review and advise. Shannan Magdaleno LPN documented in this encounter [facility] 08-06-2024 History of Present illness Narrative Radiology Service Progress Note PATIENT NAME: Debbie Montes DATE OF SERVICE: August 06, 2024 TIME: 11:53 AM PATIENT IDENTITY VERIFICATION COMPLETED USING TWO (2) IDENTIFIERS: Name and Date of confirmed by patient verbally. FALL SCREENING: Has the patient had 2 falls in the last year or 1 fall with injury or currently using an Ambulatory Assistive Device (Walker, Cane, Wheelchair, Crutches, etc.)? No PATIENT GENDER DATA: Assigned female at . status: : No status: NO. PATIENT RELEVANT IMPLANT DATA REVIEWED: Not Applicable PATIENT PRESENTS WITH AN IMPLANTABLE OR ATTACHED SENIOR LOGISTICS MANAGER: No RADIOLOGY DEPARTMENT: Ultrasound PERIPHERAL IV DATA: Not applicable SIGNED BY: Poornima Steele RDMS August 06, 2024 11:53 AM documented in this encounter [facility] 08-06-2024 Note HNO ID: [id number] Author: POORNIMA STEELE RDMS Service: ? Author Type: High [employer] Professional Type: Progress Notes Filed: 08/06/2024 11:53 Note Text: Radiology Service Progress Note PATIENT NAME: Debbie Montes DATE OF SERVICE: August 06, 2024 TIME: 11:53 AM PATIENT IDENTITY VERIFICATION COMPLETED USING TWO (2) IDENTIFIERS: Name and Date of confirmed by patient verbally. FALL SCREENING: Has the patient had 2 falls in the last year or 1 fall with injury or currently using an Ambulatory Assistive Device (Walker, Cane, Wheelchair, Crutches, etc.)? No PATIENT GENDER DATA: Assigned female at . status: : No status: NO. PATIENT RELEVANT IMPLANT DATA REVIEWED: Not Applicable PATIENT PRESENTS WITH AN IMPLANTABLE OR ATTACHED SENIOR LOGISTICS MANAGER: No RADIOLOGY DEPARTMENT: Ultrasound PERIPHERAL IV DATA: Not applicable SIGNED BY: Poornima Steele RDMS August 06, 2024 11:53 AM [facility] 08-05-2024 Instructions Kashif Bernard MD - 08/05/2024 2:31 PM EDT - Diclofenac (Cataflam) 50 mg tablets: take one tablet by mouth with food up to three times daily as needed for left buttock/SI-joint pain and inflammation. - Continue your current medications--Eliquis and Protonix--and your breathing treatments (Spiriva inhaler and DuoNeb nebulizer solution); you have refills through August for DuoNeb and through January for Spiriva. - Use a scent-free, generic nasal steroid spray daily to help relieve allergy-related ear congestion; if it upsets your stomach, try plain saline spray or a nasal gel spray instead. - Perform daily buttock stretches to improve mobility and relieve pressure: - In bed before getting up, lie on your belly and push up with your arms ( seal stretch). - Pull each knee toward your chest and hold. - With knees bent in bed, let them gently tilt side to side. - Use your arms to lift if you have difficulty breathing during the stretch. - If your hip pain does not improve with diclofenac and these stretches, consider starting physical therapy to target your sacroiliac joint and surrounding muscles. - Schedule a screening mammogram at your convenience; the order is in your chart. - Talk with Dr. Field about getting the pneumococcal (strep pneumonia) vaccine for added protection. - Shingles and hepatitis B vaccines have been postponed today; you may choose to receive them later at your doctor s office or pharmacy. - Contact the office if you develop significant stomach upset, increased bleeding, or if your hip pain or ear congestion does not improve. documented in this encounter [facility] 08-05-2024 Note HNO ID: [id number] Author: KASHIF BERNARD MD Service: ? Author Type: Physician Type: Progress Notes Filed: 09/03/2024 00:23 Note Text: This note was created using Yoomlyriter. Subjective Debbie Montes is a 59 year old female. 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 Current Outpatient Medications Medication Sig zolpidem (AMBIEN) 5 mg tablet Take 1 tablet by mouth at bedtime as needed for up to 90 days. furosemide (LASIX) 20 mg tablet 1 daily as needed to manage swelling of feet and lower legs. tiotropium bromide (SPIRIVA RESPIMAT) 2.5 mcg/actuation inhaler Inhale 2 puffs as instructed once daily. inhale 2 puffs by mouth once daily budesonide-formoterol (BREYNA) 160-4.5 mcg/actuation inhaler Inhale 2 puffs as instructed two times a day. citalopram (CELEXA) 40 mg tablet Take 1 tablet by mouth once daily. apixaban (ELIQUIS) 5 mg tab(s) Take 1 tablet by mouth two times a day. montelukast (SINGULAIR) 10 mg tablet Take 1 tablet by mouth daily at bedtime. cetirizine (ZYRTEC) 10 mg tablet Take 1 tablet by mouth once daily. atorvastatin (LIPITOR) 40 mg tablet Take 1 tablet by mouth once daily. pantoprazole DR (PROTONIX) 40 mg tablet Take 1 tablet by mouth once daily. ipratropium bromide (ATROVENT) 42 mcg (0.06 %) nasal spray Use 2 Sprays in the nose four times a day as needed (nasal congestion and runny nose). amLODIPine (NORVASC) 10 mg tablet Take 1 tablet by mouth once daily. ipratropium-albuterol (DUONEB) 0.5 mg-3 mg(2.5 mg base)/3 mL nebu Inhale 3 mL as instructed every 6 hours as needed (wheezing/shortness of breath). triamcinolone acetonide (NASACORT AQ) 55 mcg nasal inhaler Use 2 Sprays in each nostril once daily. aspirin, enteric coated (ASPIRIN, ENTERIC COATED) 81 mg EC tablet Take 81 mg by mouth once daily. albuterol HFA (PROVENTIL HFA, VENTOLIN HFA) 90 mcg/actuation inhaler INHALE 2 PUFFS BY MOUTH EVERY 6 HOURS NEEDED FOR WHEEZING AND FOR SHORTNESS OF BREATH diclofenac, EC, (VOLTAREN) 50 mg EC tablet Take 1 tablet by mouth three times a day as needed (Left SI joint pain). No current facility-administered medications for this visit. Review of Systems Objective BP 113/71 Pulse 98 Resp 16 Wt 74 kg (163 lb 2.3 oz) LMP 02/19/2015 BMI 28.00 kg/m? Last 5 Encounter Wt Readings: Date: Wt: 08/05/2024 74 kg (163 lb 2.3 oz) 07/18/2024 74.4 kg (164 lb) 06/13/2024 73 kg (161 lb) 06/13/2024 73 kg (161 lb) 02/06/2024 73 kg (160 lb 15 oz) No waist measurement recorded Estimated body mass index is 28 kg/m? as calculated from the following: Height as of 07/18/24: 162.6 cm (5' 4). Weight as of this encounter: 74 kg (163 lb 2.3 oz). Last 5 Encounter BP Readings: Date: BP: 08/05/2024 113/71 07/18/2024 126/79 06/13/2024 112/78 02/06/2024 120/71 02/02/2024 108/60 Physical Exam Constitutional: Appearance: Normal appearance. HENT: Head: Normocephalic. Eyes: Conjunctiva/sclera: Conjunctivae normal. Cardiovascular: Rate and Rhythm: Normal rate and regular rhythm. Heart sounds: Normal heart sounds. Pulmonary: Effort: Pulmonary effort is normal. Breath sounds: Normal breath sounds. Musculoskeletal: Right lower leg: No edema. Left lower leg: No edema. Skin: General: Skin is warm and dry. Neurological: General: No focal deficit present. Mental Status: She is alert and oriented to person, place, and time. Psychiatric: Mood and Affect: Mood normal. Behavior: Behavior normal. Thought Content: Thought content normal. Judgment: Judgment normal. Assessment and Plan # Chronic left SI joint pain (M53.3) - Pain localized to the mid-buttocks region, consistent with sacroiliac joint involvement; onset since June. - Previous use of topical analgesics (Biofreeze), heat, and cold compresses provided minimal relief. - Discussed and prescribed diclofenac 50 mg orally up to three times daily as needed; advised to take with food to minimize gastrointestinal side effects. - Educated on risks and benefits of NSAID use, especially considering concurrent Eliquis therapy. - Demonstrated and instructed on specific stretching exercises to alleviate tension in the sacroiliac region. - Consideration for physical therapy referral if symptoms persist or worsen. # Acute dysfunction of left eustachian tube (H69.92) - Symptoms suggestive of eustachian tube dysfunction, possibly related to recent allergy flare-ups. - Recommended resumption of nasal mayur (more content not included)... [facility] 08-05-2024 History of Present illness Narrative This note was created using [employer]. Subjective Debbie Montes is a 59 year old female. SUBJECTIVE: PAST MEDICAL HISTORY Diagnosis Date Allergic rhinitis, cause unspecified 10/23/2006 Anticardiolipin antibody positive COPD (chronic obstructive pulmonary disease) (HCC) COPD (chronic obstructive pulmonary disease) ([facility]) Heterozygous factor V Leiden mutation (HCC) Heterozygous for prothrombin [id number] mutation (HCC) PMH - PAST MEDICAL HISTORY OF PULMONARY NODULE Takotsubo syndrome Tobacco use disorder Unspecified asthma(493.90) Probably more than 10 years ago, breathing tests, Just a touch of asthma. Current Outpatient Medications Medication Sig zolpidem (AMBIEN) 5 mg tablet Take 1 tablet by mouth at bedtime as needed for up to 90 days. furosemide (LASIX) 20 mg tablet 1 daily as needed to manage swelling of feet and lower legs. tiotropium bromide (SPIRIVA RESPIMAT) 2.5 mcg/actuation inhaler Inhale 2 puffs as instructed once daily. inhale 2 puffs by mouth once daily budesonide-formoterol (BREYNA) 160-4.5 mcg/actuation inhaler Inhale 2 puffs as instructed two times a day. citalopram (CELEXA) 40 mg tablet Take 1 tablet by mouth once daily. apixaban (ELIQUIS) 5 mg tab(s) Take 1 tablet by mouth two times a day. montelukast (SINGULAIR) 10 mg tablet Take 1 tablet by mouth daily at bedtime. cetirizine (ZYRTEC) 10 mg tablet Take 1 tablet by mouth once daily. atorvastatin (LIPITOR) 40 mg tablet Take 1 tablet by mouth once daily. pantoprazole DR (PROTONIX) 40 mg tablet Take 1 tablet by mouth once daily. ipratropium bromide (ATROVENT) 42 mcg (0.06 %) nasal spray Use 2 Sprays in the nose four times a day as needed (nasal congestion and runny nose). amLODIPine (NORVASC) 10 mg tablet Take 1 tablet by mouth once daily. ipratropium-albuterol (DUONEB) 0.5 mg-3 mg(2.5 mg base)/3 mL nebu Inhale 3 mL as instructed every 6 hours as needed (wheezing/shortness of breath). triamcinolone acetonide (NASACORT AQ) 55 mcg nasal inhaler Use 2 Sprays in each nostril once daily. aspirin, enteric coated (ASPIRIN, ENTERIC COATED) 81 mg EC tablet Take 81 mg by mouth once daily. albuterol HFA (PROVENTIL HFA, VENTOLIN HFA) 90 mcg/actuation inhaler INHALE 2 PUFFS BY MOUTH EVERY 6 HOURS NEEDED FOR WHEEZING AND FOR SHORTNESS OF BREATH diclofenac, EC, (VOLTAREN) 50 mg EC tablet Take 1 tablet by mouth three times a day as needed (Left SI joint pain). No current facility-administered medications for this visit. Review of Systems Objective BP 113/71 Pulse 98 Resp 16 Wt 74 kg (163 lb 2.3 oz) LMP 02/19/2015 BMI 28.00 kg/m Last 5 Encounter Wt Readings: Date: Wt: 08/05/2024 74 kg (163 lb 2.3 oz) 07/18/2024 74.4 kg (164 lb) 06/13/2024 73 kg (161 lb) 06/13/2024 73 kg (161 lb) 02/06/2024 73 kg (160 lb 15 oz) No waist measurement recorded Estimated body mass index is 28 kg/m as calculated from the following: Height as of 07/18/24: 162.6 cm (5' 4). Weight as of this encounter: 74 kg (163 lb 2.3 oz). Last 5 Encounter BP Readings: Date: BP: 08/05/2024 113/71 07/18/2024 126/79 06/13/2024 112/78 02/06/2024 120/71 02/02/2024 108/60 Physical Exam Constitutional: Appearance: Normal appearance. HENT: Head: Normocephalic. Eyes: Conjunctiva/sclera: Conjunctivae normal. Cardiovascular: Rate and Rhythm: Normal rate and regular rhythm. Heart sounds: Normal heart sounds. Pulmonary: Effort: Pulmonary effort is normal. Breath sounds: Normal breath sounds. Musculoskeletal: Right lower leg: No edema. Left lower leg: No edema. Skin: General: Skin is warm and dry. Neurological: General: No focal deficit present. Mental Status: She is alert and oriented to person, place, and time. Psychiatric: Mood and Affect: Mood normal. Behavior: Behavior normal. Thought Content: Thought content normal. Judgment: Judgment normal. Assessment and Plan # Chronic left SI joint pain (M53.3) - Pain localized to the mid-buttocks region, consistent with sacroiliac joint involvement; onset since June. - Previous use of topical analgesics (Biofreeze), heat, and cold compresses provided minimal relief. - Discussed and prescribed diclofenac 50 mg orally up to three times daily as needed; advised to take with food to minimize gastrointestinal side effects. - Educated on risks and benefits of NSAID use, especially considering concurrent Eliquis therapy. - Demonstrated and instructed on specific stretching exercises to alleviate tension in the sacroiliac region. - Consideration for physical therapy referral if symptoms persist or worsen. # Acute dysfunction of left eustachian tube (H69.92) - Symptoms suggestive of eustachian tube dysfunction, possibly related to recent allergy flare-ups. - Recommended resumption of nasal saline and consideration of Aerogel nasal spray to reduce inflammation and improve eustachian tube patency. - Patient advised to monitor symptoms and report any worsening or persistence. # Asthma-chronic obstructive pulmonary disease overlap syndrome (HCC) (J44.89) - Discussed breathing techniques to manage dyspnea, including diaphragmatic breathing and use of accessory muscles. - Patient has adequate supply of DuoNeb for nebulization as needed during exacerbations. - Continue current management with Spiriva. # Elevated alkaline phosphatase level (R74.8) - Recent lab results indicate elevated alkaline phosphatase levels. - Further evaluation and monitoring to be discussed at next follow-up. # Essential (primary) hypertension (I10) - Blood pressure management stable on current regimen. - Continue current antihypertensive medications. # Coronary artery disease involving [place] coronary artery of [place] heart without angina pectoris (I25.10) - No current angina symptoms reported. - Continue current management and medications. # Encounter for screening mammogram for breast cancer (Z12.31) - Last mammogram performed in 2019. - Order placed for screening mammogram; patient educated on the importance of regular screenings despite previous discomfort. # Bilateral leg edema (R60.0) - Noted edema primarily when sitting for extended periods or during prolonged standing. - Advised on leg elevation and compression stockings to reduce swelling. - Monitor for any changes or worsening of edema. Kashif Bernard MD Recording using [employer] software for draft documentation of the visit was discussed with the patient/authorized fulfillment representative; all questions welcomed and answered. Patient/authorized fulfillment representative agreed to proceed documented in this encounter [facility] 07-22-2024 Telephone encounter Note The following approved medication requests have been transmitted electronically. Requested Prescriptions Pending Prescriptions Disp Refills furosemide (LASIX) 20 mg tablet 30 tablet 0 Si daily as needed to manage swelling of feet and lower legs. Kashif Bernard MD [facility] 07-22-2024 Miscellaneous Notes The following approved medication requests have been transmitted electronically. Requested Prescriptions Pending Prescriptions Disp Refills furosemide (LASIX) 20 mg tablet 30 tablet 0 Si daily as needed to manage swelling of feet and lower legs. Kashif Bernard MD Patient has been identified by name and date of : Yes Patient phones for refill(s): Requested Prescriptions Pending Prescriptions Disp Refills furosemide (LASIX) 20 mg tablet 30 tablet 0 Si daily as needed to manage swelling of feet and lower legs. Date of last office visit in primary care: 02/02/2024 Date of next office visit in primary care: 08/05/2024 Please advise. Thank you. Laura Alejo LPN. documented in this encounter [facility] 07-22-2024 Telephone encounter Note Patient has been identified by name and date of : Yes Patient phones for refill(s): Requested Prescriptions Pending Prescriptions Disp Refills zolpidem (AMBIEN) 5 mg tablet 30 tablet 2 Sig: Take 1 tablet by mouth at bedtime as needed for up to 90 days. Date of last office visit in primary care: 02/02/2024 Date of next office visit in primary care: 08/05/2024 Please advise. Thank you. Laura Alejo LPN. [facility] 07-22-2024 Miscellaneous Notes Patient has been identified by name and date of : Yes Patient phones for refill(s): Requested Prescriptions Pending Prescriptions Disp Refills zolpidem (AMBIEN) 5 mg tablet 30 tablet 2 Sig: Take 1 tablet by mouth at bedtime as needed for up to 90 days. Date of last office visit in primary care: 02/02/2024 Date of next office visit in primary care: 08/05/2024 Please advise. Thank you. Laura Alejo LPN. documented in this encounter [facility] 07-20-2024 Telephone encounter Note Patient has been identified by name and date of : Yes Patient phones for refill(s): Requested Prescriptions Pending Prescriptions Disp Refills furosemide (LASIX) 20 mg tablet 30 tablet 0 Si daily as needed to manage swelling of feet and lower legs. Date of last office visit in primary care: 02/02/2024 Date of next office visit in primary care: 08/05/2024 Please advise. Thank you. Laura Alejo LPN. [facility] 07-18-2024 Dangelo Mayer APRN.[employer]RILL PRESS OPERATOR HELPER - 07/18/2024 1:30 PM EDT Lung nodule/s: all previously seen nodule/s have not changed in size or characteristic/resolved and there are no new nodules of concern. Please return in one year for the following 2 visits on the same day: Annual low-dose CT chest Lung cancer screening Provider visit. This recommendation is subject to change pending the final report from radiology. I will notify you of the final radiology report recommendations when available by [employer] message, letter, or phone call. We will also notify your referring provider/PCP of the results and recommendations. If you didn t schedule this before you left the office or need to reschedule, you can call in to schedule it anytime: [facility] [phone] [facility] [phone] All other [facility] locations [phone] Feel free to reach out for any questions or concerns, Dangelo Mast APRN.CNP Lung Cancer Screening [phone] documented in this encounter [facility] 07-18-2024 Note HNO ID: [id number] Author: DANGELO MAST APRN.CNP Service: ? Author Type: Nurse Practitioner Type: Progress Notes Filed: 07/19/2024 17:18 Note Text: LUNG SCREENING ANNUAL VISIT PRIMARY CARE PHYSICIAN: Kashif Bernard MD PULMONARY PROVIDER: Dr. Caitlyn Field Results will be communicated via letter or electronic record if applicable. Visit Delivery: In Person Patient Visit Type: established Current or Ex-smoker? ex Exam Type: annual LDCT Number of Pack Years: 42 Current smoker (=0) or Number of Years since Quit: 2 The patient's smoking history is similar to prior year shared decision visit. The reason for the discrepancy is NA Chief Complaint: Established patient in lung cancer screening program here for annual follow-up. Impression / Recommendations Debbie Montes presents for annual lung cancer screening annual exam and nodule evaluation. Plan: Indeterminate pulmonary nodules: Previously identified nodules appear stable and no new nodules of concern were seen on the exam. Low dose CT Scan to be repeated in one year. Plan subject to change pending final radiology report and recommendations. Nature of the lung nodule(s) and the options for further evaluation discussed in detail with patient. Debbie Montes expressed understanding and is in agreement with plan. 2. Encounter for screening for malignant neoplasm of respiratory organs I have determined that the patient is eligible for continued low dose CT screening based on age, absence of signs or symptoms of lung cancer, smoking history and total pack years. The patient was counseled on the importance of adherence to annual LDCT lung cancer screening, impact of comorbidities and ability or willingness to undergo diagnosis and treatment. The patient understands and feels comfortable with it: Yes. 3. Nicotine Dependence The patient was counseled on the importance of maintaining cigarette smoking abstinence - The patient is committed to remaining abstinent from tobacco. Dangelo Mast APRN.DRILL PRESS OPERATOR HELPER July 18, 2024 1:25 PM History of Present Illness: Debbie Montes is a 59 year old female who is presenting today for annual lung cancer screening LDCT and nodule surveillance/management. Patient has multiple nodules found on previous lung cancer screening LDCT. Last LDCT was performed on 03/15/2022 and was LUNG RADS Category 2. Previous potentially significant incidental findings on imaging: None. Patient is a former smoker with a 42 pack year history. Patient quit smoking 2 years ago at age 57 . Patient will continue to be eligible for lung cancer screening until age 78. The patient does not have any symptoms or signs of lung cancer. Patient has SOB with their daily activity. Wheezing. Patient denies feeling of chest tightness/congestion in the chest. Patient does not have a new or concerning cough, and denies hemoptysis. Patient does have a chronic daily cough. Denies regular or recent fevers/chills. Patient does not have any significant unintentional weight loss. Patient denies having any respiratory infections or COVID-19 in the past few months. Modified Medical Research Stebbins Dyspnea Scale (MMRC) I am too breathless to leave the house or I am breathless when dressing 4 Last 12 Encounter Wt Readings: Date: Wt: 07/18/2024 74.4 kg (164 lb) 06/13/2024 73 kg (161 lb) 06/13/2024 73 kg (161 lb) 02/06/2024 73 kg (160 lb 15 oz) 02/02/2024 73.7 kg (162 lb 7.7 oz) 07/21/2023 75.8 kg (167 lb) 04/10/2023 75.3 kg (166 lb) 03/06/2023 73.9 kg (163 lb) 02/10/2023 73.9 kg (163 lb) 02/10/2023 74.2 kg (163 lb 9.6 oz) 12/07/2022 75.3 kg (166 lb) 08/05/2022 74.8 kg (165 lb) Social History Tobacco Use: Types: Cigarettes Past Medical History: PAST MEDICAL HISTORY Diagnosis Date Allergic rhinitis, cause unspecified 10/23/2006 Anticardiolipin antibody positive COPD (chronic obstructive pulmonary disease) (HCC) COPD (chronic obstructive pulmonary disease) (HCC) Heterozygous factor V Leiden mutation (HCC) Heterozygous for prothrombin [id number] mutation (HCC) PMH - PAST MEDICAL HISTORY OF PULMONARY NODULE Takotsubo syndrome Tobacco use disorder Unspecified asthma(493.90) Probably more than 10 years ago, breathing tests, Just a touch of asthma. Family Hx: FAMILY HISTORY Problem Relation Age of Onset Heart Mother Hypertension Mother Diabetes Mother COPD Mother Developed before she . She never smoked. other (Macular degeneration) Mother other (Cataracts) Mother Emphysema Father Hypertension Sister Cancer Sister ovarian with mets to lung lining Ovarian cancer Sister Hypertension Sister No Known Problems Maternal Grandmother No Known Problems Maternal Grandfather No Known Problems Paternal Grandmother No Known Problems Paternal Grandfather (more content not included)... [facility] 07-18-2024 History of Present illness Narrative Images from the original note were not included. LUNG SCREENING ANNUAL VISIT PRIMARY CARE PHYSICIAN: Kashif Bernard MD PULMONARY PROVIDER: Dr. Caitlyn Field Results will be communicated via letter or electronic record if applicable. Visit Delivery: In Person Patient Visit Type: established Current or Ex-smoker? ex Exam Type: annual LDCT Number of Pack Years: 42 Current smoker (=0) or Number of Years since Quit: 2 The patient's smoking history is similar to prior year shared decision visit. The reason for the discrepancy is NA Chief Complaint: Established patient in lung cancer screening program here for annual follow-up. Impression / Recommendations Debbie Montes presents for annual lung cancer screening annual exam and nodule evaluation. Plan: Indeterminate pulmonary nodules: Previously identified nodules appear stable and no new nodules of concern were seen on the exam. Low dose CT Scan to be repeated in one year. Plan subject to change pending final radiology report and recommendations. Nature of the lung nodule(s) and the options for further evaluation discussed in detail with patient. Debbie Montes expressed understanding and is in agreement with plan. 2. Encounter for screening for malignant neoplasm of respiratory organs I have determined that the patient is eligible for continued low dose CT screening based on age, absence of signs or symptoms of lung cancer, smoking history and total pack years. The patient was counseled on the importance of adherence to annual LDCT lung cancer screening, impact of comorbidities and ability or willingness to undergo diagnosis and treatment. The patient understands and feels comfortable with it: Yes. 3. Nicotine Dependence The patient was counseled on the importance of maintaining cigarette smoking abstinence - The patient is committed to remaining abstinent from tobacco. Dangelo Mast APRN.[facility] July 18, 2024 1:25 PM History of Present Illness: Debbie Montes is a 59 year old female who is presenting today for annual lung cancer screening LDCT and nodule surveillance/management. Patient has multiple nodules found on previous lung cancer screening LDCT. Last LDCT was performed on 03/15/2022 and was LUNG RADS Category 2. Previous potentially significant incidental findings on imaging: None. Patient is a former smoker with a 42 pack year history. Patient quit smoking 2 years ago at age 57 . Patient will continue to be eligible for lung cancer screening until age 78. The patient does not have any symptoms or signs of lung cancer. Patient has SOB with their daily activity. Wheezing. Patient denies feeling of chest tightness/congestion in the chest. Patient does not have a new or concerning cough, and denies hemoptysis. Patient does have a chronic daily cough. Denies regular or recent fevers/chills. Patient does not have any significant unintentional weight loss. Patient denies having any respiratory infections or COVID-19 in the past few months. Modified Medical Research Stebbins Dyspnea Scale (MMRC) I am too breathless to leave the house or I am breathless when dressing 4 Last 12 Encounter Wt Readings: Date: Wt: 07/18/2024 74.4 kg (164 lb) 06/13/2024 73 kg (161 lb) 06/13/2024 73 kg (161 lb) 02/06/2024 73 kg (160 lb 15 oz) 02/02/2024 73.7 kg (162 lb 7.7 oz) 07/21/2023 75.8 kg (167 lb) 04/10/2023 75.3 kg (166 lb) 03/06/2023 73.9 kg (163 lb) 02/10/2023 73.9 kg (163 lb) 02/10/2023 74.2 kg (163 lb 9.6 oz) 12/07/2022 75.3 kg (166 lb) 08/05/2022 74.8 kg (165 lb) Social History Tobacco Use: Types: Cigarettes Past Medical History: PAST MEDICAL HISTORY Diagnosis Date Allergic rhinitis, cause unspecified 10/23/2006 Anticardiolipin antibody positive COPD (chronic obstructive pulmonary disease) (HCC) COPD (chronic obstructive pulmonary disease) (HCC) Heterozygous factor V Leiden mutation (HCC) Heterozygous for prothrombin [id number] mutation (HCC) PMH - PAST MEDICAL HISTORY OF PULMONARY NODULE Takotsubo syndrome Tobacco use disorder Unspecified asthma(493.90) Probably more than 10 years ago, breathing tests, Just a touch of asthma. Family Hx: FAMILY HISTORY Problem Relation Age of Onset Heart Mother Hypertension Mother Diabetes Mother COPD Mother Developed before she . She never smoked. other (Macular degeneration) Mother other (Cataracts) Mother Emphysema Father Hypertension Sister Cancer Sister ovarian with mets to lung lining Ovarian cancer Sister Hypertension Sister No Known Problems Maternal Grandmother No Known Problems Maternal Grandfather No Known Problems Paternal Grandmother No Known Problems Paternal Grandfather other (MTHFR) Daughter Bleeding disorders other (MTHFR) Daughter Bleeding disorders Surgical Hx: PAST SURGICAL HISTORY Procedure Laterality Date LIG/TRNSXJ FLP TUBE ABDL/VAG APPR UNI/BI 1989 Tubal ligation PAST SURGICAL HISTORY OF Cyst drained in right breast x 2 PAST SURGICAL HISTORY OF reconnect ligament in the right side toe TONSILLECTOMY PRIMARY/SECONDARY <AGE 13 AGE 7 Tonsillectomy Allergies: ALLERGIES Allergen Reactions Silvadene [Silver S* Intolerance Tetracycline GI Upset Augmentin [Amoxicil* GI Upset Cymbalta [Duloxetin* Other: See Comments GI upset; poor appetite Effexor Xr [Venlafa* Diarrhea Thinks maybe might be able to tolerate like Celexa after a while Sudafed [Pseudoephe* Intolerance heart racing Tramadol GI Upset Vicodin [Hydrocodon* Itching, Vomiting [place] very off balance; can take codeine Wellbutrin Sr [Bupr* Mental Status Change felt stoned Zoloft [Sertraline * Diarrhea Review Of Systems: See HPI for ROS All of the remainder systems were reviewed and negative. PHYSICAL EXAMINATION: BP 126/79 Pulse 91 Ht 5' 4 (1.63m) Wt 164 lb (74.4kg) SpO2 96% LMP 02/19/2015 BMI 28.14 kg/(m^2). General appearance: well appearing, in no acute distress, and alert Skin: skin color, texture, turgor normal, no rashes or lesions Nose/Sinuses: Negative Oropharynx: Lips, mucosa, and tongue normal, teeth and gums normal, oropharynx normal Neck: Supple, no adenopathy; thyroid symmetric, normal size Respiratory: lungs clear to auscultation no wheezing or rhonchi Cardiovascular: Negative. RRR without murmur, gallop, or rubs. No ectopy Musculoskeletal: Extremities normal. No deformities, edema, or skin discoloration. Neuro: Oriented X 3 Data Review I have visually reviewed imaging and testing below CT imaging done today was reviewed and analyzed independently and compared to prior CT chest imaging by practitioner and awaiting radiology review. Imaging * * *Final Report* * * DATE OF EXAM: Mar 15 2022 2:10PM [facility] [place]G [place] WO IVCON / PROCEDURE REASON: multiple diagnoses * * * * Physician Interpretation * * * * EXAMINATION: CHEST CT WITHOUT CONTRAST (LOW-DOSE CT LUNG CANCER SCREENING PROTOCOL) CLINICAL HISTORY: Lung cancer LDCT screening ? absence of signs or symptoms of lung cancer. Nicotine dependence (cigarettes). Baseline (initial) Technique: Spiral CT acquisition of the chest from the thoracic inlet to the upper abdomen without contrast. MQ: CTLCS_6 Patient characteristics: * Vorv-xo-Hofke: 1965; Age at exam: 57 years * Gender: Female * Lung Disease: Asymptomatic (no signs or symptoms of lung disease) * Number of Pack Years: 40 * Current smoker (=0) or Number of Years since Quit: 0 * Ordering provider and NPI: MARYANNE NOVOA [id number] * Interpreting radiologist and NPI: Christiano [id number] Exam acquisition parameters: * Exam Date: 03/15/2022 2:10 PM * Site: [facility] * * CT System Pitch Flaker: Easel Learn * CT System Model: [facility] * Tube Current-Time (mA-sec): 60 * Peak Voltage (kV): 120V * Scan Time (sec): 5.18 * Scan Volume (z-length, cm): 36.20 * Pitch: .984 * Slice Thickness (mm): 1.25 * CT Dose-Length Product: 105.53 mGy*cm * CT Dose Index: 2.65mGy * CT Dose Reduction Method: Iterative recon and mAs-kVp adjusted using patient size-age COMPARISON: Chest CT dated 12/30/2020. RESULT: Are nodules present? Yes, 1-5 nodules Nodule 1: This Solid nodule is located in the Right Upper Lobe on slice number 72 with an average diameter of 3.4 mm (3.8 mm x 2.9 mm). Nodule 2: This Solid nodule is located in the Right Upper Lobe on slice number 83 with an average diameter of 1.8 mm (2.3 mm x 1.3 mm). Nodule 3: This Solid nodule is located in the Right Upper Lobe on slice number 76 with an average diameter of 1.7 mm (1.7 mm x 1.7 mm). Other lung nodule comments: Small pulmonary nodules are stable since prior exam. Additional subpleural nodular opacities in the lung apices are likely scarring for example in the right upper lobe image 55. Other findings: The central airways are patent without endobronchial lesion. There is biapical pleural-parenchymal scarring. Linear atelectasis is noted in the right upper and middle lobes as well as lingula. No new focal consolidation. The the imaged thyroid gland is unremarkable. No thoracic lymphadenopathy. There are atherosclerotic calcifications of the thoracic aorta. The thoracic aorta and main pulmonary artery are normal in caliber. The cardiac chambers are normal in size. Mild coronary artery calcifications are seen. No pericardial effusion or pericardial thickening. The esophagus is nondilated. The imaged upper abdomen is stable without acute abnormality. There are atherosclerotic calcifications of the abdominal aorta. There are degenerative changes of the thoracic spine. The soft tissues of the chest wall are unremarkable.. Emphysema: Mild (5-25%), centrilobular, upper lobe Coronary Artery Calcifications: Circumflex mild; Left Anterior Descending mild; Right Coronary minimum Nurse Examiner (topogram) images: No additional findings. Last CT Chest - Impression Only CT CHEST W IVCON PE Exam End: 12/30/2020 12:10 PM (Final result) Impression: IMPRESSION: Irregularity of the distal right pulmonary artery, right upper lobe pulmonary artery and segmental pulmonary artery, without dilation of the arteries. Findings are felt to be representing chronic/subacute pulmonary embolism. URGENT RESULTS Acuity: Urgent Communication: Attempted communication with QUETA Barcenas on ... Last XR Chest - Impression Only XR CHEST 2V FRONTAL/LAT Exam End: 05/21/2021 10:34 AM (Final result) Impression: IMPRESSION: Mild atelectasis in the lingula and right middle lobe. ... Pulmonary Function Testing: SPIROMETRY WITH DILATOR IF OBSTRUCTED ([id number]) - ordered on 06/13/24 No textual results for order. documented in this encounter [facility] 07-18-2024 History of Present illness Narrative Radiology Service Progress Note PATIENT NAME: Debbie Montes DATE OF SERVICE: July 18, 2024 TIME: 3:56 PM PATIENT IDENTITY VERIFICATION COMPLETED USING TWO (2) IDENTIFIERS: Name and Date of confirmed by patient verbally. FALL SCREENING: Has the patient had 2 falls in the last year or 1 fall with injury or currently using an Ambulatory Assistive Device (Walker, Cane, Wheelchair, Crutches, etc.)? No PATIENT GENDER DATA: Assigned female at . status: : No status: NO. PATIENT RELEVANT IMPLANT DATA REVIEWED: Yes PATIENT PRESENTS WITH AN IMPLANTABLE OR ATTACHED SENIOR LOGISTICS MANAGER: No RADIOLOGY DEPARTMENT: CT; Exam(s) Completed: Lung Screening PERIPHERAL IV DATA: Not applicable SIGNED BY: RT Jesus Manuel(Jovan) July 18, 2024 3:56 PM documented in this encounter [facility] 07-18-2024 Note HNO ID: [id number] Author: TATI ZIMMERMAN RT(R) Service: ? Author Type: High [employer] Professional Type: Progress Notes Filed: 07/18/2024 15:57 Note Text: Radiology Service Progress Note PATIENT NAME: Debbie Montes DATE OF SERVICE: July 18, 2024 TIME: 3:56 PM PATIENT IDENTITY VERIFICATION COMPLETED USING TWO (2) IDENTIFIERS: Name and Date of confirmed by patient verbally. FALL SCREENING: Has the patient had 2 falls in the last year or 1 fall with injury or currently using an Ambulatory Assistive Device (Walker, Cane, Wheelchair, Crutches, etc.)? No PATIENT GENDER DATA: Assigned female at . status: : No status: NO. PATIENT RELEVANT IMPLANT DATA REVIEWED: Yes PATIENT PRESENTS WITH AN IMPLANTABLE OR ATTACHED SENIOR LOGISTICS MANAGER: No RADIOLOGY DEPARTMENT: CT; Exam(s) Completed: Lung Screening PERIPHERAL IV DATA: Not applicable SIGNED BY: RT Jesus Manuel(Jovan) July 18, 2024 3:56 PM [facility] 06-13-2024 History of Present illness Narrative Images from the original note were not included. . [facility] Note Patient name: Debbie Montes PCP: Kashif Bernard MD CC: COPD HPI: Debbie Montes 59 year old female former 42 pack year smoker, quitting 2022 with PMH significant for h/o asthma with severe COPD overlap, VTE on Eliquis (FVL, prothormbin gene, anticardiolipin Ab), lung nodules. Current therapy with Symbicort, Spiriva and Duoneb. Participating in lung cancer screening but two years over due. From a pulmonary standpoint she states she has been doing much better since she quit smoking. She no longer has persistent wheezing and chest congestion. She continues to have dyspnea with exertion mainly triggered by overheating or humidity. She had COVID infection in March but did not require hospitalization. Her pulmonary function test today show moderately severe obstruction which remains stable, no decline since her last test. 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 ALLERGIES Allergen Reactions Silvadene [Silver S* Intolerance Tetracycline GI Upset Augmentin [Amoxicil* GI Upset Cymbalta [Duloxetin* Other: See Comments GI upset; poor appetite Effexor Xr [Venlafa* Diarrhea Thinks maybe might be able to tolerate like Celexa after a while Sudafed [Pseudoephe* Intolerance heart racing Tramadol GI Upset Vicodin [Hydrocodon* Itching, Vomiting [place] very off balance; can take codeine Wellbutrin Sr [Bupr* Mental Status Change felt stoned Zoloft [Sertraline * Diarrhea apixaban (ELIQUIS) 5 mg tab(s) Take 1 tablet by mouth two times a day. montelukast (SINGULAIR) 10 mg tablet Take 1 tablet by mouth daily at bedtime. tiotropium bromide (SPIRIVA RESPIMAT) 2.5 mcg/actuation inhaler Inhale 2 puffs as instructed once daily. inhale 2 puffs by mouth once daily budesonide-formoterol (BREYNA) 160-4.5 mcg/actuation inhaler Inhale 2 puffs as instructed two times a day. citalopram (CELEXA) 40 mg tablet Take 1 tablet by mouth once daily. zolpidem (AMBIEN) 5 mg tablet Take 1 tablet by mouth at bedtime as needed for up to 90 days. albuterol HFA (PROVENTIL HFA, VENTOLIN HFA) 90 mcg/actuation inhaler Inhale 2 Puffs as instructed every 6 hours as needed for wheezing/shortness of breath. cetirizine (ZYRTEC) 10 mg tablet Take 1 tablet by mouth once daily. atorvastatin (LIPITOR) 40 mg tablet Take 1 tablet by mouth once daily. pantoprazole DR (PROTONIX) 40 mg tablet Take 1 tablet by mouth once daily. ipratropium bromide (ATROVENT) 42 mcg (0.06 %) nasal spray Use 2 Sprays in the nose four times a day as needed (nasal congestion and runny nose). amLODIPine (NORVASC) 10 mg tablet Take 1 tablet by mouth once daily. ipratropium-albuterol (DUONEB) 0.5 mg-3 mg(2.5 mg base)/3 mL nebu Inhale 3 mL as instructed every 6 hours as needed (wheezing/shortness of breath). triamcinolone acetonide (NASACORT AQ) 55 mcg nasal inhaler Use 2 Sprays in each nostril once daily. furosemide (LASIX) 20 mg tablet 1 daily as needed to manage swelling of feet and lower legs. aspirin, enteric coated (ASPIRIN, ENTERIC COATED) 81 mg EC tablet Take 81 mg by mouth once daily. Social History Tobacco Use Smoking status: Former Current packs/day: 0.00 Average packs/day: 1 pack/day for 42.1 years (42.1 ttl pk-yrs) Types: Cigarettes Start date: 02/07/1980 Quit date: 03/11/2022 Years since quittin.2 Smokeless tobacco: Never Tobacco comments: started age 16 Vaping Use Vaping status: Some Days Substance Use Topics Alcohol use: Yes Comment: rarely Drug use: No FAMILY HISTORY Problem Relation Age of Onset Heart Mother Hypertension Mother Diabetes Mother COPD Mother Developed before she . She never smoked. other (Macular degeneration) Mother other (Cataracts) Mother Emphysema Father Hypertension Sister Cancer Sister ovarian with mets to lung lining Ovarian cancer Sister Hypertension Sister No Known Problems Maternal Grandmother No Known Problems Maternal Grandfather No Known Problems Paternal Grandmother No Known Problems Paternal Grandfather other (MTHFR) Daughter Bleeding disorders other (MTHFR) Daughter Bleeding disorders PAST SURGICAL HISTORY Procedure Laterality Date LIG/TRNSXJ FLP TUBE ABDL/VAG APPR UNI/BI 1989 Tubal ligation PAST SURGICAL HISTORY OF Cyst drained in right breast x 2 PAST SURGICAL HISTORY OF reconnect ligament in the right side toe TONSILLECTOMY PRIMARY/SECONDARY <AGE 13 AGE 7 Tonsillectomy PMH, Social history, family history and surgical history reviewed and updated in EMR REVIEW OF SYSTEMS: CONSTITUTIONAL: No fevers, chills, nightsweats, unintended weight loss HEENT: Denies nasal congestion/sinus symptoms CARDIOVASCULAR: No chest pain, palpitations, orthopnea, edema. PULM: See HPI GI: No reflux. PSY: No concerns regarding depression, anxiety INTEGUMENTARY: No new skin changes PHYSICAL EXAMINATION: BP 112/78 Pulse 102 Resp 16 Ht 5' 4 (1.63m) Wt 161 lb (73.0kg) SpO2 96% LMP 02/19/2015 BMI 27.62 kg/(m^2). General Appearance: Age appropriate, NAD. Skin: Skin color, texture, turgor normal, no suspicious rashes or lesions. Few ecchymoses Head: Normocephalic, no masses, lesions, tenderness or abnormalities. Oropharynx: No oral lesions or thrush. Neck: No masses or adenopathy. Lungs: Not labored, very diminished breath sounds, no wheezes or crackles. Heart: RRR, no murmur. Extremities: Mild ankle edema, no clubbing. Assessment/Plan: Severe COPD, GOLD stage 3 -Symptoms improved since she stopped smoking -Pulmonary function test show stability of her airflow obstruction -She will continue on triple inhaler therapy. Refilled prescription for bradypnea and Spiriva -Continue abstinence from tobacco Former cigarette smoker -Former smoker with sequelae of COPD -Continue abstinence -Needs updated lung cancer screening examination Lung nodules - Previously stable subcentimeter pulmonary nodules - See #2 Maria Field MD [facility] documented in this encounter [facility] 06-13-2024 Note HNO ID: [id number] Author: MARIA FIELD MD Service: ? Author Type: Physician Type: Progress Notes Filed: 06/13/2024 17:07 Note Text: . [facility] Patient name: Debbie Montes PCP: Kashif Bernard MD CC: COPD HPI: Debbie Montes 59 year old female former 42 pack year smoker, quitting 2022 with PMH significant for h/o asthma with severe COPD overlap, VTE on Eliquis (FVL, prothormbin gene, anticardiolipin Ab), lung nodules. Current therapy with Symbicort, Spiriva and Duoneb. Participating in lung cancer screening but two years over due. From a pulmonary standpoint she states she has been doing much better since she quit smoking. She no longer has persistent wheezing and chest congestion. She continues to have dyspnea with exertion mainly triggered by overheating or humidity. She had COVID infection in March but did not require hospitalization. Her pulmonary function test today show moderately severe obstruction which remains stable, no decline since her last test. 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 ALLERGIES Allergen Reactions Silvadene [Silver S* Intolerance Tetracycline GI Upset Augmentin [Amoxicil* GI Upset Cymbalta [Duloxetin* Other: See Comments GI upset; poor appetite Effexor Xr [Venlafa* Diarrhea Thinks maybe might be able to tolerate like Celexa after a while Sudafed [Pseudoephe* Intolerance heart racing Tramadol GI Upset Vicodin [Hydrocodon* Itching, Vomiting [place] very off balance; can take codeine Wellbutrin Sr [Bupr* Mental Status Change felt stoned Zoloft [Sertraline * Diarrhea apixaban (ELIQUIS) 5 mg tab(s) Take 1 tablet by mouth two times a day. montelukast (SINGULAIR) 10 mg tablet Take 1 tablet by mouth daily at bedtime. tiotropium bromide (SPIRIVA RESPIMAT) 2.5 mcg/actuation inhaler Inhale 2 puffs as instructed once daily. inhale 2 puffs by mouth once daily budesonide-formoterol (BREYNA) 160-4.5 mcg/actuation inhaler Inhale 2 puffs as instructed two times a day. citalopram (CELEXA) 40 mg tablet Take 1 tablet by mouth once daily. zolpidem (AMBIEN) 5 mg tablet Take 1 tablet by mouth at bedtime as needed for up to 90 days. albuterol HFA (PROVENTIL HFA, VENTOLIN HFA) 90 mcg/actuation inhaler Inhale 2 Puffs as instructed every 6 hours as needed for wheezing/shortness of breath. cetirizine (ZYRTEC) 10 mg tablet Take 1 tablet by mouth once daily. atorvastatin (LIPITOR) 40 mg tablet Take 1 tablet by mouth once daily. pantoprazole DR (PROTONIX) 40 mg tablet Take 1 tablet by mouth once daily. ipratropium bromide (ATROVENT) 42 mcg (0.06 %) nasal spray Use 2 Sprays in the nose four times a day as needed (nasal congestion and runny nose). amLODIPine (NORVASC) 10 mg tablet Take 1 tablet by mouth once daily. ipratropium-albuterol (DUONEB) 0.5 mg-3 mg(2.5 mg base)/3 mL nebu Inhale 3 mL as instructed every 6 hours as needed (wheezing/shortness of breath). triamcinolone acetonide (NASACORT AQ) 55 mcg nasal inhaler Use 2 Sprays in each nostril once daily. furosemide (LASIX) 20 mg tablet 1 daily as needed to manage swelling of feet and lower legs. aspirin, enteric coated (ASPIRIN, ENTERIC COATED) 81 mg EC tablet Take 81 mg by mouth once daily. Social History Tobacco Use Smoking status: Former Current packs/day: 0.00 Average packs/day: 1 pack/day for 42.1 years (42.1 ttl pk-yrs) Types: Cigarettes Start date: 02/07/1980 Quit date: 03/11/2022 Years since quittin.2 Smokeless tobacco: Never Tobacco comments: started age 16 Vaping Use Vaping status: Some Days Substance Use Topics Alcohol use: Yes Comment: rarely Drug use: No FAMILY HISTORY Problem Relation Age of Onset Heart Mother Hypertension Mother Diabetes Mother COPD Mother Developed before she . She never smoked. other (Macular degeneration) Mother other (Cataracts) Mother Emphysema Father Hypertension Sister Cancer Sister ovarian with mets to lung lining Ovarian cancer Sister Hypertension Sister No Known Problems Maternal Grandmother No Known Problems Maternal Grandfather No Known Problems Paternal Grandmother No Known Problems Paternal Grandfather other (MTHFR) Daughter Bleeding disorders other (MTHFR) Daughter Bleeding disorders PAST SURGICAL HISTORY Procedure Laterality Date LIG/TRNSXJ FLP TUBE ABDL/VAG APPR UNI/BI 1989 Tubal ligation PAST SURGICAL HISTORY OF Cyst drained in right breast x 2 (more content not included)... [facility] 05-28-2024 Note Patient Outreach (IN [facility]) DEBBIE MONTES I ([id number]) 1965 F Date Time Provider Department 05/28/24 KASHIF BERNARD [facility] During your visit today, we recorded the following information about you: Allergies As of Date: 05/28/2024 Noted Allergy Reaction SILVADENE (SILVER SULFADIAZINE) 09/08/2006 5 - Intolerance TETRACYCLINE 09/08/2006 8 - GI Upset AUGMENTIN (AMOXICILLIN-POT CLAVUL*02/08/2011 8 - GI Upset CYMBALTA (DULOXETINE) 04/14/2011 14 - Other: See Comments Comments: GI upset; poor appetite EFFEXOR XR (VENLAFAXINE) 05/10/2001 6 - Diarrhea Comments: Thinks maybe might be able to tolerate like Celexa after a while SUDAFED (PSEUDOEPHEDRINE) 11/15/2006 5 - Intolerance Comments: heart racing TRAMADOL 06/10/2013 8 - GI Upset VICODIN (HYDROCODONE-ACETAMINOPHE*11/28/19 07 9 - Itching 11 - Vomiting Comments: [place] very off balance; can take codeine WELLBUTRIN SR (BUPROPION) 05/08/2007 1 - Mental Status Change Comments: felt stoned ZOLOFT (SERTRALINE HCL) 05/10/2001 6 - Diarrhea Date Reviewed: 02/06/2024 Reviewed by: Susan Russo LPN - Fully Assessed Visit Diagnosis:Encounter for screening mammogram for breast cancer [Z12.31] Order(s):ESA SCREENING W PEDRO [[id number]] Order #: [id number] FUTURE Prescriptions as of 06/28/2024 - tiotropium bromide (SPIRIVA RESPIMAT) 2.5 mcg/actuation inhaler Inhale 2 puffs as instructed once daily. inhale 2 puffs by mouth once daily - budesonide-formoterol (BREYNA) 160-4.5 mcg/actuation inhaler Inhale 2 puffs as instructed two times a day. - citalopram (CELEXA) 40 mg tablet Take 1 tablet by mouth once daily. - zolpidem (AMBIEN) 5 mg tablet Take 1 tablet by mouth at bedtime as needed for up to 90 days. - albuterol HFA (PROVENTIL HFA, VENTOLIN HFA) 90 mcg/actuation inhaler Inhale 2 Puffs as instructed every 6 hours as needed for wheezing/shortness of breath. - apixaban (ELIQUIS) 5 mg tab(s) Take 1 tablet by mouth two times a day. - montelukast (SINGULAIR) 10 mg tablet Take 1 tablet by mouth daily at bedtime. - cetirizine (ZYRTEC) 10 mg tablet Take 1 tablet by mouth once daily. - atorvastatin (LIPITOR) 40 mg tablet Take 1 tablet by mouth once daily. - pantoprazole DR (PROTONIX) 40 mg tablet Take 1 tablet by mouth once daily. - ipratropium bromide (ATROVENT) 42 mcg (0.06 %) nasal spray Use 2 Sprays in the nose four times a day as needed (nasal congestion and runny nose). - amLODIPine (NORVASC) 10 mg tablet Take 1 tablet by mouth once daily. - ipratropium-albuterol (DUONEB) 0.5 mg-3 mg(2.5 mg base)/3 mL nebu Inhale 3 mL as instructed every 6 hours as needed (wheezing/shortness of breath). - triamcinolone acetonide (NASACORT AQ) 55 mcg nasal inhaler Use 2 Sprays in each nostril once daily. - furosemide (LASIX) 20 mg tablet 1 daily as needed to manage swelling of feet and lower legs. - aspirin, enteric coated (ASPIRIN, ENTERIC COATED) 81 mg EC tablet Take 81 mg by mouth once daily. Problem List As Of Date 05/28/2024 Noted Resolved SOLITARY CYST OF BREAST [N60.09] 10/06/2006 DYSFUNCT EUSTACHIAN TUBE [H69.90] 10/23/2006 ALLERGIC RHINITIS NOS [J30.9] 10/23/2006 Asthma [J45.909] 10/23/2006 PANIC DISORDER WITHOUT AGORAPHOBIA [F41.0] 05/08/2007 Reactive depression [F32.9] 05/08/2007 TENSION HEADACHE [G44.209] 05/08/2007 COMMON MIGRAINE W/O MENTN INTRACT [G43.009] 05/08/2007 Essential hypertension [I10] 11/27/2014 Tobacco use disorder [F17.200] Asthma-chronic obstructive pulmonary disease ov*04/03/2020 Mixed anxiety depressive disorder [F41.8] 04/03/2020 Acute pulmonary embolism without acute cor pulm*01/06/2021 Family history of thrombophlebitis [Z82.49] 06/07/2021 On continuous oral anticoagulation [Z79.01] 07/16/2021 Encounter Status:Closed by [employer] PR[place] SLNUSRAT on 06/28/24 [facility] 04-15-2024 Telephone encounter Note Patient has been identified by name and date of : Yes Patient phones for refill(s): Requested Prescriptions Pending Prescriptions Disp Refills zolpidem (AMBIEN) 5 mg tablet 30 tablet 2 Sig: Take 1 tablet by mouth at bedtime as needed for up to 90 days. Date of last office visit in primary care: 02/02/2024 Date of next office visit in primary care: 08/05/2024 Please advise. Thank you. Laura Alejo LPN. [facility] 04-15-2024 Miscellaneous Notes Patient has been identified by name and date of : Yes Patient phones for refill(s): Requested Prescriptions Pending Prescriptions Disp Refills zolpidem (AMBIEN) 5 mg tablet 30 tablet 2 Sig: Take 1 tablet by mouth at bedtime as needed for up to 90 days. Date of last office visit in primary care: 02/02/2024 Date of next office visit in primary care: 08/05/2024 Please advise. Thank you. Laura Alejo LPN. documented in this encounter [facility] 04-15-2024 Telephone encounter Note Patient has been identified by name and date of : Yes Patient phones for refill(s): Requested Prescriptions Pending Prescriptions Disp Refills citalopram (CELEXA) 40 mg tablet 90 tablet 3 Sig: Take 1 tablet by mouth once daily. Date of last office visit in primary care: 02/02/2024 Date of next office visit in primary care: 08/05/2024 Please advise. Thank you. Laura Alejo LPN. [facility] 04-15-2024 Miscellaneous Notes Patient has been identified by name and date of : Yes Patient phones for refill(s): Requested Prescriptions Pending Prescriptions Disp Refills citalopram (CELEXA) 40 mg tablet 90 tablet 3 Sig: Take 1 tablet by mouth once daily. Date of last office visit in primary care: 02/02/2024 Date of next office visit in primary care: 08/05/2024 Please advise. Thank you. Laura Alejo LPN. documented in this encounter [facility] 03-08-2024 Telephone encounter Note The following approved medication requests have been transmitted electronically. Requested Prescriptions Signed Prescriptions Disp Refills ALPRAZolam (XANAX) 0.5 mg tablet 28 tablet 0 Sig: Take 1 tablet by mouth at bedtime as needed for up to 60 days. Authorizing Provider: KASHIF BERNARD MD [facility] 03-08-2024 Miscellaneous Notes The following approved medication requests have been transmitted electronically. Requested Prescriptions Signed Prescriptions Disp Refills ALPRAZolam (XANAX) 0.5 mg tablet 28 tablet 0 Sig: Take 1 tablet by mouth at bedtime as needed for up to 60 days. Authorizing Provider: KASHIF BERNARD MD Prescription Refill Information The patient has been identified by name and date of : Yes Caregiver verified no other encounters exist for this prescription request: Yes Caregiver confirmed with patient/requestor that no other refills are due, in the near future, with this provider at this time: Yes The last office visit in the department: 02/02/24 Does the patient have a future office visit with this provider/department: Yes 08/05/24 Requested Prescriptions Pending Prescriptions Disp Refills ALPRAZolam (XANAX) 0.5 mg tablet 28 tablet 0 Sig: Take 1 tablet by mouth at bedtime as needed for up to 60 days. Maya Choi LPN March 08, 2024 12:11 PM documented in this encounter [facility] 03-08-2024 Telephone encounter Note JULIO CESAR 12/05/23 Patient phones requesting refills as follows: Requested Prescriptions Pending Prescriptions Disp Refills albuterol HFA (PROVENTIL HFA, VENTOLIN HFA) 90 mcg/actuation inhaler 6.7 g 5 Sig: Inhale 2 Puffs as instructed every 6 hours as needed for wheezing/shortness of breath. Please review and advise. Shannan Magdaleno LPN [facility] 03-08-2024 Miscellaneous Notes JULIO CESAR 12/05/23 Patient phones requesting refills as follows: Requested Prescriptions Pending Prescriptions Disp Refills albuterol HFA (PROVENTIL HFA, VENTOLIN HFA) 90 mcg/actuation inhaler 6.7 g 5 Sig: Inhale 2 Puffs as instructed every 6 hours as needed for wheezing/shortness of breath. Please review and advise. Shannan Magdaleno LPN documented in this encounter [facility] 03-08-2024 Telephone encounter Note Prescription Refill Information The patient has been identified by name and date of : Yes Caregiver verified no other encounters exist for this prescription request: Yes Caregiver confirmed with patient/requestor that no other refills are due, in the near future, with this provider at this time: Yes The last office visit in the department: 02/02/24 Does the patient have a future office visit with this provider/department: Yes 08/05/24 Requested Prescriptions Pending Prescriptions Disp Refills ALPRAZolam (XANAX) 0.5 mg tablet 28 tablet 0 Sig: Take 1 tablet by mouth at bedtime as needed for up to 60 days. Maya Choi LPN March 08, 2024 12:11 PM [facility] 02-06-2024 Note HNO ID: [id number] Author: YURIY BELLA MD Service: ? Author Type: Physician Type: Progress Notes Filed: 02/06/2024 10:20 Note Text: Patient presents with: Headache: Cough, headache, sinus pressure and pain, head congestion, fever, less than 24 hour HPI: Feeling sick abruptly last night. She noticed a little sinus pressure starting last week. Positive symptoms: slight Cough, Sinus pressure, Fever (up to 102), bad Headache, Nasal Congestion, Post nasal drainage, Negative symptoms: Sore throat, Rhinorrhea, Nausea, Vomiting, Diarrhea, OTC: Tylenol MEDICATIONS: Current Outpatient Medications Medication Sig apixaban (ELIQUIS) 5 mg tab(s) Take 1 tablet by mouth two times a day. montelukast (SINGULAIR) 10 mg tablet Take 1 tablet by mouth daily at bedtime. cetirizine (ZYRTEC) 10 mg tablet Take 1 tablet by mouth once daily. atorvastatin (LIPITOR) 40 mg tablet Take 1 tablet by mouth once daily. pantoprazole DR (PROTONIX) 40 mg tablet Take 1 tablet by mouth once daily. ipratropium bromide (ATROVENT) 42 mcg (0.06 %) nasal spray Use 2 Sprays in the nose four times a day as needed (nasal congestion and runny nose). tiotropium bromide (SPIRIVA RESPIMAT) 2.5 mcg/actuation inhaler Inhale 2 Puffs as instructed once daily. inhale 2 puffs by mouth once daily budesonide-formoterol (BREYNA) 160-4.5 mcg/actuation inhaler Inhale 2 Puffs as instructed two times a day. amLODIPine (NORVASC) 10 mg tablet Take 1 tablet by mouth once daily. zolpidem (AMBIEN) 5 mg tablet Take 1 tablet by mouth at bedtime as needed for up to 90 days. ALPRAZolam (XANAX) 0.5 mg tablet Take 1 tablet by mouth at bedtime as needed for up to 60 days. ipratropium-albuterol (DUONEB) 0.5 mg-3 mg(2.5 mg base)/3 mL nebu Inhale 3 mL as instructed every 6 hours as needed (wheezing/shortness of breath). citalopram (CELEXA) 40 mg tablet Take 1 tablet by mouth once daily. albuterol HFA (PROVENTIL HFA, VENTOLIN HFA) 90 mcg/actuation inhaler Inhale 2 Puffs as instructed every 6 hours as needed for wheezing/shortness of breath. triamcinolone acetonide (NASACORT AQ) 55 mcg nasal inhaler Use 2 Sprays in each nostril once daily. furosemide (LASIX) 20 mg tablet 1 daily as needed to manage swelling of feet and lower legs. aspirin, enteric coated (ASPIRIN, ENTERIC COATED) 81 mg EC tablet Take 81 mg by mouth once daily. No current facility-administered medications for this visit. ALLERGIES: ALLERGIES Allergen Reactions Silvadene [Silver S* Intolerance Tetracycline GI Upset Augmentin [Amoxicil* GI Upset Cymbalta [Duloxetin* Other: See Comments GI upset; poor appetite Effexor Xr [Venlafa* Diarrhea Thinks maybe might be able to tolerate like Celexa after a while Sudafed [Pseudoephe* Intolerance heart racing Tramadol GI Upset Vicodin [Hydrocodon* Itching, Vomiting [place] very off balance; can take codeine Wellbutrin Sr [Bupr* Mental Status Change felt stoned Zoloft [Sertraline * Diarrhea VITALS: BP 120/71 Pulse 97 Temp 37.5 ?C (99.5 ?F) Resp 21 Wt 73 kg (160 lb 15 oz) LMP 02/19/2015 SpO2 95% BMI 27.62 kg/m? PHYSICAL EXAM: GEN: mildly ill appearing HEENT: PERRL, EOMI, conjunctiva clear Ears: TMs without erythema, bulge, or effusion Sinuses: non-tender frontal sinus, pressure over maxillary sinuses Throat: moist mucous membranes, no erythema, no exudate Neck: supple, no thyromegaly, no lymphadenopathy HEART: regular rate, regular rhythm, no murmurs LUNGS: clear to auscultation, no wheezes or crackles, no increased WOB ASSESSMENT/PLAN: 1. Influenza-like illness - ICD9: 487.1, ICD10: J11.1 - suspect influenza or COVID-19. - Discussed supportive care treatment with home isolation (fever free for 24 hours and improving symptoms), rest, cold medicine, and analgesia. - Red flags to seek further treatment include chest pain, shortness of breath, and lethargy; in the ER if severe. - INFLUENZA AANDB MOLECULAR (POC) - negative - COVID AND INFLUENZA A/B AND RSV PCR, ROUTINE -not a candidate for Paxlovid due to interaction with Eliquis. Yuriy Bella MD [facility] 02-06-2024 History of Present illness Narrative Patient presents with: Headache: Cough, headache, sinus pressure and pain, head congestion, fever, less than 24 hour HPI: Feeling sick abruptly last night. She noticed a little sinus pressure starting last week. Positive symptoms: slight Cough, Sinus pressure, Fever (up to 102), bad Headache, Nasal Congestion, Post nasal drainage, Negative symptoms: Sore throat, Rhinorrhea, Nausea, Vomiting, Diarrhea, OTC: Tylenol MEDICATIONS: Current Outpatient Medications Medication Sig apixaban (ELIQUIS) 5 mg tab(s) Take 1 tablet by mouth two times a day. montelukast (SINGULAIR) 10 mg tablet Take 1 tablet by mouth daily at bedtime. cetirizine (ZYRTEC) 10 mg tablet Take 1 tablet by mouth once daily. atorvastatin (LIPITOR) 40 mg tablet Take 1 tablet by mouth once daily. pantoprazole DR (PROTONIX) 40 mg tablet Take 1 tablet by mouth once daily. ipratropium bromide (ATROVENT) 42 mcg (0.06 %) nasal spray Use 2 Sprays in the nose four times a day as needed (nasal congestion and runny nose). tiotropium bromide (SPIRIVA RESPIMAT) 2.5 mcg/actuation inhaler Inhale 2 Puffs as instructed once daily. inhale 2 puffs by mouth once daily budesonide-formoterol (BREYNA) 160-4.5 mcg/actuation inhaler Inhale 2 Puffs as instructed two times a day. amLODIPine (NORVASC) 10 mg tablet Take 1 tablet by mouth once daily. zolpidem (AMBIEN) 5 mg tablet Take 1 tablet by mouth at bedtime as needed for up to 90 days. ALPRAZolam (XANAX) 0.5 mg tablet Take 1 tablet by mouth at bedtime as needed for up to 60 days. ipratropium-albuterol (DUONEB) 0.5 mg-3 mg(2.5 mg base)/3 mL nebu Inhale 3 mL as instructed every 6 hours as needed (wheezing/shortness of breath). citalopram (CELEXA) 40 mg tablet Take 1 tablet by mouth once daily. albuterol HFA (PROVENTIL HFA, VENTOLIN HFA) 90 mcg/actuation inhaler Inhale 2 Puffs as instructed every 6 hours as needed for wheezing/shortness of breath. triamcinolone acetonide (NASACORT AQ) 55 mcg nasal inhaler Use 2 Sprays in each nostril once daily. furosemide (LASIX) 20 mg tablet 1 daily as needed to manage swelling of feet and lower legs. aspirin, enteric coated (ASPIRIN, ENTERIC COATED) 81 mg EC tablet Take 81 mg by mouth once daily. No current facility-administered medications for this visit. ALLERGIES: ALLERGIES Allergen Reactions Silvadene [Silver S* Intolerance Tetracycline GI Upset Augmentin [Amoxicil* GI Upset Cymbalta [Duloxetin* Other: See Comments GI upset; poor appetite Effexor Xr [Venlafa* Diarrhea Thinks maybe might be able to tolerate like Celexa after a while Sudafed [Pseudoephe* Intolerance heart racing Tramadol GI Upset Vicodin [Hydrocodon* Itching, Vomiting [place] very off balance; can take codeine Wellbutrin Sr [Bupr* Mental Status Change felt stoned Zoloft [Sertraline * Diarrhea VITALS: BP 120/71 Pulse 97 Temp 37.5 C (99.5 F) Resp 21 Wt 73 kg (160 lb 15 oz) LMP 02/19/2015 SpO2 95% BMI 27.62 kg/m PHYSICAL EXAM: GEN: mildly ill appearing HEENT: PERRL, EOMI, conjunctiva clear Ears: TMs without erythema, bulge, or effusion Sinuses: non-tender frontal sinus, pressure over maxillary sinuses Throat: moist mucous membranes, no erythema, no exudate Neck: supple, no thyromegaly, no lymphadenopathy HEART: regular rate, regular rhythm, no murmurs LUNGS: clear to auscultation, no wheezes or crackles, no increased WOB ASSESSMENT/PLAN: 1. Influenza-like illness - ICD9: 487.1, ICD10: J11.1 - suspect influenza or COVID-19. - Discussed supportive care treatment with home isolation (fever free for 24 hours and improving symptoms), rest, cold medicine, and analgesia. - Red flags to seek further treatment include chest pain, shortness of breath, and lethargy; in the ER if severe. - INFLUENZA A&B MOLECULAR (POC) - negative - COVID & INFLUENZA A/B & RSV PCR, ROUTINE -not a candidate for Paxlovid due to interaction with [place]eline. Yuriy Bella MD documented in this encounter [facility] 02-02-2024 History of Present illness Narrative This note was created using [employer]. Subjective Debbie Montes is a 59 year old female. No chief complaint on file. SUBJECTIVE: Debbie Montes is a 59 year old year old lady here today for 6 month follow up appointment for review of medical conditions. Atorvastatin - New rx/refills now since current rx will run out in April and won't be back in till August. Some sinus pressure, needs Zyrtec and Singulair refilled. COPD - doing well, being managed with a specialist Debbie Montes is a 59-year-old female with a history of COPD, presenting for medication refills and evaluation of sinus congestion and post-nasal drainage. Debbie reports persistent sinus congestion and post-nasal drainage, primarily on the right side, with associated dryness and clumping of blood. She attributes this to difficulty blowing her nose due to reduced airflow from COPD. She also experiences mucus drainage down her throat, leading to hoarseness and frequent throat clearing. She has been using Zyrtec and Singulair for allergy management but has not used nasal saline recently. She previously used Flonase but discontinued it due to gastrointestinal discomfort. She notes that her home has electric heat, which contributes to nasal dryness, and she uses a vaporizer to mitigate this. She is requesting refills for atorvastatin, Eliquis, Singulair, and Zyrtec. She currently receives a 30-day supply of Eliquis and inquires about the possibility of a 90-day supply. She also reports experiencing breakthrough acid reflux despite daily use of omeprazole and inquires about alternative medications. She has a follow-up appointment with her aerial installer in February and mentions that her Spiriva is managed by her aerial installer. She reports trace edema in her ankles, which she manages with furosemide and leg elevation. She has been more active during the [place] season, which she believes has contributed to the edema. She recently purchased a treadmill to improve her stamina, as she is hesitant to walk outside due to concerns about her COPD. She reports that her disability claim was recently approved after a 3-year process. She denies any recent lab tests by other providers and is not currently on any thyroid medications. She has a family history of sinus issues, noting that her father had horrible sinuses. She has had a tonsillectomy and has not experienced a sore throat since the procedure. 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 Current Outpatient Medications Medication Sig tiotropium bromide (SPIRIVA RESPIMAT) 2.5 mcg/actuation inhaler Inhale 2 Puffs as instructed once daily. inhale 2 puffs by mouth once daily budesonide-formoterol (BREYNA) 160-4.5 mcg/actuation inhaler Inhale 2 Puffs as instructed two times a day. amLODIPine (NORVASC) 10 mg tablet Take 1 tablet by mouth once daily. atorvastatin (LIPITOR) 40 mg tablet Take 1 tablet by mouth once daily. zolpidem (AMBIEN) 5 mg tablet Take 1 tablet by mouth at bedtime as needed for up to 90 days. ALPRAZolam (XANAX) 0.5 mg tablet Take 1 tablet by mouth at bedtime as needed for up to 60 days. ipratropium-albuterol (DUONEB) 0.5 mg-3 mg(2.5 mg base)/3 mL nebu Inhale 3 mL as instructed every 6 hours as needed (wheezing/shortness of breath). omeprazole (PRILOSEC) 40 mg capsule Take 1 capsule by mouth once daily. montelukast (SINGULAIR) 10 mg tablet Take 1 tablet by mouth daily at bedtime. citalopram (CELEXA) 40 mg tablet Take 1 tablet by mouth once daily. apixaban (ELIQUIS) 5 mg tab(s) Take 1 tablet by mouth two times a day. cetirizine (ZYRTEC) 10 mg tablet Take 1 tablet by mouth once daily. albuterol HFA (PROVENTIL HFA, VENTOLIN HFA) 90 mcg/actuation inhaler Inhale 2 Puffs as instructed every 6 hours as needed for wheezing/shortness of breath. triamcinolone acetonide (NASACORT AQ) 55 mcg nasal inhaler Use 2 Sprays in each nostril once daily. cyclobenzaprine (FLEXERIL) 10 mg tablet Take 1 tablet by mouth three times daily as needed for muscle spasm. (Patient not taking: Reported on 07/21/2023) furosemide (LASIX) 20 mg tablet 1 daily as needed to manage swelling of feet and lower legs. aspirin, enteric coated (ASPIRIN, ENTERIC COATED) 81 mg EC tablet Take 81 mg by mouth once daily. No current facility-administered medications for this visit. Review of Systems Objective BP 108/60 Pulse 85 Temp 36.8 C (98.2 F) Resp 16 Wt 73.7 kg (162 lb 7.7 oz) LMP 02/19/2015 SpO2 98% BMI 27.89 kg/m Physical Exam Constitutional: Appearance: Normal appearance. HENT: Head: Normocephalic and atraumatic. Eyes: Conjunctiva/sclera: Conjunctivae normal. Cardiovascular: Rate and Rhythm: Normal rate and regular rhythm. Heart sounds: Normal heart sounds. Pulmonary: Effort: Pulmonary effort is normal. Breath sounds: Normal breath sounds. No wheezing, rhonchi or rales. Musculoskeletal: Cervical back: Normal range of motion and neck supple. Right lower leg: Edema (trace ankle swelling) present. Left lower leg: Edema (trace ankle swelling) present. Skin: General: Skin is warm and dry. Neurological: General: No focal deficit present. Mental Status: She is alert and oriented to person, place, and time. Psychiatric: Mood and Affect: Mood normal. Behavior: Behavior normal. Thought Content: Thought content normal. Judgment: Judgment normal. Latest Ref [facility] 03/06/2023 WBC 3.70 - 11.00 k/uL 7.88 RBC 3.90 - 5.20 m/uL 4.48 Hemoglobin 11.5 - 15.5 g/dL 13.0 Hematocrit 36.0 - 46.0 % 40.1 MCV 80.0 - 100.0 fL 89.5 MCH 26.0 - 34.0 pg 29.0 MCHC 30.5 - 36.0 g/dL 32.4 RDW-CV 11.5 - 15.0 % 13.3 Platelet Count 150 - 400 k/uL 341 MPV 9.0 - 12.7 fL 9.5 Neut% % 62.1 Abs Neut (ANC) 1.45 - 7.50 k/uL 4.89 Lymph% % 28.7 Abs Lymph 1.00 - 4.00 k/uL 2.26 Merrick% % 6.7 Abs Merrick <0.87 k/uL 0.53 Eosin% % 1.6 Abs Eosin <0.46 k/uL 0.13 Baso% % 0.6 Abs Baso <0.11 k/uL 0.05 Immature Gran % % 0.3 IMMATURE GRANS (ABS) <0.10 k/uL <0.03 NRBC /100 WBC 0.0 Absolute nRBC <0.01 k/uL <0.01 DTYPE Auto Protein, Total 6.3 - 8.0 g/dL 7.3 Albumin 3.9 - 4.9 g/dL 4.3 Calcium 8.5 - 10.2 mg/dL 9.5 Bilirubin, Total 0.2 - 1.3 mg/dL 0.3 Alkaline Phosphatase 34 - 123 U/L 176 (H) AST 13 - 35 U/L 19 ALT 7 - 38 U/L 19 Glucose 74 - 99 mg/dL 105 (H) BUN 7 - 21 mg/dL 9 Creatinine 0.58 - 0.96 mg/dL 0.87 Sodium 136 - 144 mmol/L 138 Potassium 3.7 - 5.1 mmol/L 3.8 Chloride 97 - 105 mmol/L 101 CO2 22 - 30 mmol/L 26 Anion Gap 9 - 18 mmol/L 11 eGFR >=60 mL/min/1.73m 78 Total Cholesterol, Nonfasting <200 mg/dL 154 Triglycerides, Nonfasting <150 mg/dL 64 HDL Cholesterol, Nonfasting >39 mg/dL 46 LDL Cholesterol, Nonfasting <100 mg/dL 95 Non HDL Cholesterol, Nonfasting <130 mg/dL 108 VLDL Cholesterol, Nonfasting <30 mg/dL 13 Total Chol/HDL Ratio, Nonfasting <5.10 mg/dL 3.35 LDL/HDL Ratio, Nonfasting <2.54 mg/dL 2.07 Hemoglobin A1C 4.3 - 5.6 % 5.7 (H) Estimated Average Glucose mg/dL 117 TSH 0.270 - 4.200 mIU/L 0.489 Legend: (H) High Assessment and Plan # Essential hypertension (I10) - Blood pressure well-controlled. - Continue current antihypertensive regimen. # Sinus congestion (R09.81) # Nasal congestion (R09.81) # Post-nasal drainage (R09.82) - Prescribed Atrovent nasal spray to reduce congestion and drainage. - Recommended use of nasal saline and AYR gel to maintain nasal moisture and facilitate drainage. # Elevated alkaline phosphatase level (R74.8) - Previous labs showed elevated alkaline phosphatase with no other liver function abnormalities. - Ordered alkaline phosphatase isoenzymes to determine the source of elevation. - Will re-evaluate with next set of labs. # Seasonal allergies (J30.2) - Continue current regimen of Singulair and Zyrtec. - Prescriptions adjusted to 90-day supply. # Vitamin D deficiency (E55.9) - Continue current vitamin D supplementation. # Stage 3 severe COPD by GOLD classification (HCC) (J44.9) - Continue current management with Spiriva as prescribed by pulmonology. - Follow-up with aerial installer scheduled in February. - Encouraged use of treadmill for exercise to improve stamina. # Hypercholesterolemia (E78.00) - Lipid panel from February was within normal limits. - Continue current lipid-lowering therapy. - Ordered repeat lipid panel in 6 months. # Elevated hemoglobin A1c (R73.09) - A1c slightly above normal range. - Emphasized importance of diet and exercise; patient has purchased a treadmill. - Ordered repeat A1c in 6 months. # History of pulmonary embolism (Z86.711) # [facility] (current) use of anticoagulants (Z79.01) - Continue Eliquis 5 mg BID. - Attempted to prescribe a 90-day supply, contingent on insurance approval. # Gastro-esophageal reflux disease without esophagitis (K21.9) - Noted breakthrough reflux symptoms on current omeprazole therapy. - Discontinued omeprazole; initiated pantoprazole 40 mg daily with a 90-day supply and one refill. - Will reassess efficacy at next visit. # Encounter for immunization (Z23) - Administered influenza vaccine. # Encounter for long-term current use of medication (Z79.899) - Reviewed and updated medication list. - Adjusted prescriptions for atorvastatin, Singulair, and Zyrtec to 90-day supplies. - Attempted 90-day supply for Eliquis, pending insurance approval. TEACHING PROVIDER (Physician/PA/PIG MACHINE SUPERVISOR) NOTE OF PERSONAL INVOLVEMENT IN CARE: I have personally seen and examined the patient and performed the medical decision-making components. I have reviewed the Medical Student's documentation and verified the findings in the note as written. Any additions or changes are noted in bold/italics. Signature: Kashif Bernard Date: 03/04/2024 Time: 12:39 AM Kashif Bernard MD documented in this encounter [facility] 02-02-2024 Note HNO ID: [id number] Author: KASHIF BERNARD MD Service: ? Author Type: Physician Type: Progress Notes Filed: 03/04/2024 00:39 Note Text: This note was created using [employer]. Subjective Debbie Montes is a 59 year old female. No chief complaint on file. SUBJECTIVE: Debbie Montes is a 59 year old year old lady here today for 6 month follow up appointment for review of medical conditions. Atorvastatin - New rx/refills now since current rx will run out in April and won't be back in till August. Some sinus pressure, needs Zyrtec and Singulair refilled. COPD - doing well, being managed with a specialist Debbie Montes is a 59-year-old female with a history of COPD, presenting for medication refills and evaluation of sinus congestion and post-nasal drainage. Debbie reports persistent sinus congestion and post-nasal drainage, primarily on the right side, with associated dryness and clumping of blood. She attributes this to difficulty blowing her nose due to reduced airflow from COPD. She also experiences mucus drainage down her throat, leading to hoarseness and frequent throat clearing. She has been using Zyrtec and Singulair for allergy management but has not used nasal saline recently. She previously used Flonase but discontinued it due to gastrointestinal discomfort. She notes that her home has electric heat, which contributes to nasal dryness, and she uses a vaporizer to mitigate this. She is requesting refills for atorvastatin, Eliquis, Singulair, and Zyrtec. She currently receives a 30-day supply of Eliquis and inquires about the possibility of a 90-day supply. She also reports experiencing breakthrough acid reflux despite daily use of omeprazole and inquires about alternative medications. She has a follow-up appointment with her aerial installer in February and mentions that her Spiriva is managed by her aerial installer. She reports trace edema in her ankles, which she manages with furosemide and leg elevation. She has been more active during the [place] season, which she believes has contributed to the edema. She recently purchased a treadmill to improve her stamina, as she is hesitant to walk outside due to concerns about her COPD. She reports that her disability claim was recently approved after a 3-year process. She denies any recent lab tests by other providers and is not currently on any thyroid medications. She has a family history of sinus issues, noting that her father had horrible sinuses. She has had a tonsillectomy and has not experienced a sore throat since the procedure. 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 Current Outpatient Medications Medication Sig tiotropium bromide (SPIRIVA RESPIMAT) 2.5 mcg/actuation inhaler Inhale 2 Puffs as instructed once daily. inhale 2 puffs by mouth once daily budesonide-formoterol (BREYNA) 160-4.5 mcg/actuation inhaler Inhale 2 Puffs as instructed two times a day. amLODIPine (NORVASC) 10 mg tablet Take 1 tablet by mouth once daily. atorvastatin (LIPITOR) 40 mg tablet Take 1 tablet by mouth once daily. zolpidem (AMBIEN) 5 mg tablet Take 1 tablet by mouth at bedtime as needed for up to 90 days. ALPRAZolam (XANAX) 0.5 mg tablet Take 1 tablet by mouth at bedtime as needed for up to 60 days. ipratropium-albuterol (DUONEB) 0.5 mg-3 mg(2.5 mg base)/3 mL nebu Inhale 3 mL as instructed every 6 hours as needed (wheezing/shortness of breath). omeprazole (PRILOSEC) 40 mg capsule Take 1 capsule by mouth once daily. montelukast (SINGULAIR) 10 mg tablet Take 1 tablet by mouth daily at bedtime. citalopram (CELEXA) 40 mg tablet Take 1 tablet by mouth once daily. apixaban (ELIQUIS) 5 mg tab(s) Take 1 tablet by mouth two times a day. cetirizine (ZYRTEC) 10 mg tablet Take 1 tablet by mouth once daily. albuterol HFA (PROVENTIL HFA, VENTOLIN HFA) 90 mcg/actuation inhaler Inhale 2 Puffs as instructed every 6 hours as needed for wheezing/shortness of breath. triamcinolone acetonide (NASACORT AQ) 55 mcg nasal inhaler Use 2 Sprays in each nostril once daily. cyclobenzaprine (FLEXERIL) 10 mg tablet Take 1 tablet by mouth three times daily as needed for muscle spasm. (Patient not taking: Reported on 07/21/2023) furosemide (LASIX) 20 mg tablet 1 daily as needed to manage swelling of feet and lower legs. aspirin, enteric coated (ASPIRIN, ENTERIC COATED) 81 mg EC tablet Take 81 mg by mouth once daily. No current facility-administered medications for this visit. Review of Systems Objective BP 108/60 Pulse (more content not included)... [facility] 01-12-2024 Telephone encounter Note The following approved medication requests have been transmitted electronically. Requested Prescriptions Signed Prescriptions Disp Refills amLODIPine (NORVASC) 10 mg tablet 90 tablet 3 Sig: Take 1 tablet by mouth once daily. Authorizing Provider: KASHIF BERNARD MD [facility] 01-12-2024 Miscellaneous Notes The following approved medication requests have been transmitted electronically. Requested Prescriptions Signed Prescriptions Disp Refills amLODIPine (NORVASC) 10 mg tablet 90 tablet 3 Sig: Take 1 tablet by mouth once daily. Authorizing Provider: KASHIF BERNARD MD Prescription Refill Information The patient has been identified by name and date of : Yes Caregiver verified no other encounters exist for this prescription request: Yes Caregiver confirmed with patient/requestor that no other refills are due, in the near future, with this provider at this time: Yes The last office visit in the department: 07/21/23 Does the patient have a future office visit with this provider/department: Yes Requested Prescriptions Pending Prescriptions Disp Refills amLODIPine (NORVASC) 10 mg tablet 90 tablet 3 Sig: Take 1 tablet by mouth once daily. Mary Velazquez LPN January 11, 2024 4:21 PM documented in this encounter [facility] 01-11-2024 Telephone encounter Note Prescription Refill Information The patient has been identified by name and date of : Yes Caregiver verified no other encounters exist for this prescription request: Yes Caregiver confirmed with patient/requestor that no other refills are due, in the near future, with this provider at this time: Yes The last office visit in the department: 07/21/23 Does the patient have a future office visit with this provider/department: Yes Requested Prescriptions Pending Prescriptions Disp Refills amLODIPine (NORVASC) 10 mg tablet 90 tablet 3 Sig: Take 1 tablet by mouth once daily. Mary Velazquez LPN January 11, 2024 4:21 PM [facility] 12-05-2023 Instructions Marisol Amanda APRN.[facility] - 12/05/2023 3:06 PM EDT Stop Breyna (Symbicort). Start using Pulmicort and Brovana. Continue Spiriva once a day. Continue to use Albuterol and Duoneb as needed. Schedule with Dangelo in lung cancer screening. Follow-up in [address] Field and repeat breathing tests. If there is an issue getting the nebulized treatments, please let the office know. If you note that your oxygen level drops and stays below 90% at home, let the office know and we can bring you in for a walk test. documented in this encounter [facility] 12-05-2023 History of Present illness Narrative Images from the original note were not included. Pulmonary Medicine Patients name: Debbie Montes PCP: Kashif Bernard MD CC: COPD follow-up HPI: Debbie Montes is a 58 year old female former 30 pack year smoker (quit 03/2022) with PMH significant for mild asthma in past, severe COPD (normal alpha 1 antitrypsin), VTE on chronic Eliquis (seen by Hematology with positive for heterozygous FVL, Prothrombin gene, and positive anticardiolipin Ab.), lung nodules, COVID 08/2021 and allergic rhinitis. Current therapy consists of Symbicort and Spirva. Previously did not tolerate Trelegy secondary to cough. Also uses PRN Duoneb and Albuterol. Continued cessation from smoking and vaping. Today, patient reports occasional cough, mostly in the morning. Occasional clear sputum. No hemoptysis. No recent wheezing. Rare dyspnea at rest. Her biggest complaint continues to be gradually worsening dyspnea with exertion. Notes that even daily tasks around the house causes dyspnea. She limits activities she does outside of her home as she worries she will become too SOB. Reports compliance with inhaled therapy but can't hold her breath long enough to feel like she is getting the full benefit of the medication. Albuterol use is 4-5 times a week. Duoneb use is at least daily, sometimes 2 times. Finds nebulizer treatment to be helpful. SPO2 at home 93-99%. Denies any urgent care or ED visits in the last year related to respiratory concerns. No steroids or antibiotics. 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 Allergies: Silvadene [Silver S* Intolerance Tetracycline GI Upset Augmentin [Amoxicil* GI Upset Cymbalta [Duloxetin* Other: See Comments Comment:GI upset; poor appetite Effexor Xr [Venlafa* Diarrhea Comment:Thinks maybe might be able to tolerate like Celexa after a while Sudafed [Pseudoephe* Intolerance Comment:heart racing Tramadol GI Upset Vicodin [Hydrocodon* Itching, Vomiting Comment:[place] very off balance; can take codeine Wellbutrin Sr [Bupr* Mental Status Change Comment:felt stoned Zoloft [Sertraline * Diarrhea Medication List Accurate as of December 05, 2023 12:52 PM. If you have any questions, ask your nurse or doctor. CONTINUE taking these medications albuterol HFA 90 mcg/actuation inhaler Commonly known as: PROVENTIL HFA, VENTOLIN HFA Inhale 2 Puffs as instructed every 6 hours as needed for wheezing/shortness of breath. ALPRAZolam 0.5 mg tablet Commonly known as: XANAX Take 1 tablet by mouth at bedtime as needed for up to 60 days. amLODIPine 10 mg tablet Commonly known as: NORVASC Take 1 tablet by mouth once daily. apixaban 5 mg tab(s) Commonly known as: ELIQUIS Take 1 tablet by mouth two times a day. aspirin, enteric coated 81 mg EC tablet Commonly known as: ASPIRIN, ENTERIC COATED atorvastatin 40 mg tablet Commonly known as: LIPITOR Take 1 tablet by mouth once daily. budesonide-formoterol 160-4.5 mcg/actuation inhaler Commonly known as: BREYNA Inhale 2 Puffs as instructed two times a day. cetirizine 10 mg tablet Commonly known as: ZyrTEC Take 1 tablet by mouth once daily. citalopram 40 mg tablet Commonly known as: CeleXA Take 1 tablet by mouth once daily. cyclobenzaprine 10 mg tablet Commonly known as: FLEXERIL Take 1 tablet by mouth three times daily as needed for muscle spasm. furosemide 20 mg tablet Commonly known as: LASIX 1 daily as needed to manage swelling of feet and lower legs. ipratropium-albuterol 0.5 mg-3 mg(2.5 mg base)/3 mL Nebu Commonly known as: DUONEB Inhale 3 mL as instructed every 6 hours as needed (wheezing/shortness of breath). montelukast 10 mg tablet Commonly known as: SINGULAIR Take 1 tablet by mouth daily at bedtime. omeprazole 40 mg capsule Commonly known as: PriLOSEC Take 1 capsule by mouth once daily. SPIRIVA RESPIMAT 2.5 mcg/actuation inhaler Generic drug: tiotropium bromide Inhale 2 Puffs as instructed once daily. inhale 2 puffs by mouth once daily triamcinolone acetonide 55 mcg nasal inhaler Commonly known as: NASACORT AQ Use 2 Sprays in each nostril once daily. zolpidem 5 mg tablet Commonly known as: AMBIEN Take 1 tablet by mouth at bedtime as needed for up to 90 days. DATA: I personally reviewed and analyzed all labs, radiographs and available pulmonary function testing PFT: 02/2023 IMPRESSION: Spirometry indicates severe obstruction. CXR: Last XR Chest - Impression Only XR CHEST 2V FRONTAL/LAT Exam End: 05/21/2021 10:34 AM (Final result) Impression: IMPRESSION: Mild atelectasis in the lingula and right middle lobe. ... CT Chest: 03/15/2022 IMPRESSION: LungRADS category: 2 LungRADS modifier: None LungRADS 0 reason: n/a Recommendations: Continue annual screening with LDCT in 12 months. Other actionable findings: ======= Reference: [employer]. Lung CT Screening Reporting and Data System (Lung-RADS). Available at: http://www.acr.org/Quality-Safety/ Resources/LungRADS Proposal Manager: PSCEliseo Transcribe Date/Time: Mar 15 2022 2:47P Dictated by : RYAN WALKER MD This examination was interpreted and the report reviewed and electronically signed by: RYAN WALKER MD on Mar 15 2022 2:57PM EST Results-Findings * * *Final Report* * * DATE OF EXAM: Mar 15 2022 2:10PM [facility] [id number] IVCON / PROCEDURE REASON: multiple diagnoses * * * * Physician Interpretation * * * * EXAMINATION: CHEST CT WITHOUT CONTRAST (LOW-DOSE CT LUNG CANCER SCREENING PROTOCOL) CLINICAL HISTORY: Lung cancer LDCT screening ? absence of signs or symptoms of lung cancer. Nicotine dependence (cigarettes). Baseline (initial) Technique: Spiral CT acquisition of the chest from the thoracic inlet to the upper abdomen without contrast. MQ: CTLCS_6 Patient characteristics: * Cujt-xt-Gxgtt: 1965; Age at exam: 57 years * Gender: Female * Lung Disease: Asymptomatic (no signs or symptoms of lung disease) * Number of Pack Years: 40 * Current smoker (=0) or Number of Years since Quit: 0 * Ordering provider and NPI: MARYANNE NOVOA [id number] * Interpreting radiologist and NPI: Christiano [id number] Exam acquisition parameters: * Exam Date: 03/15/2022 2:10 PM * Site: [facility] * * CT System Pitch Flaker: Easel Learn * CT System Model: ChartITright Howard * Tube Current-Time (mA-sec): 60 * Peak Voltage (kV): 120V * Scan Time (sec): 5.18 * Scan Volume (z-length, cm): 36.20 * Pitch: .984 * Slice Thickness (mm): 1.25 * CT Dose-Length Product: 105.53 mGy*cm * CT Dose Index: 2.65mGy * CT Dose Reduction Method: Iterative recon and mAs-kVp adjusted using patient size-age COMPARISON: Chest CT dated 12/30/2020. RESULT: Are nodules present? Yes, 1-5 nodules Nodule 1: This Solid nodule is located in the Right Upper Lobe on slice number 72 with an average diameter of 3.4 mm (3.8 mm x 2.9 mm). Nodule 2: This Solid nodule is located in the Right Upper Lobe on slice number 83 with an average diameter of 1.8 mm (2.3 mm x 1.3 mm). Nodule 3: This Solid nodule is located in the Right Upper Lobe on slice number 76 with an average diameter of 1.7 mm (1.7 mm x 1.7 mm). Other lung nodule comments: Small pulmonary nodules are stable since prior exam. Additional subpleural nodular opacities in the lung apices are likely scarring for example in the right upper lobe image 55. Other findings: The central airways are patent without endobronchial lesion. There is biapical pleural-parenchymal scarring. Linear atelectasis is noted in the right upper and middle lobes as well as lingula. No new focal consolidation. The the imaged thyroid gland is unremarkable. No thoracic lymphadenopathy. There are atherosclerotic calcifications of the thoracic aorta. The thoracic aorta and main pulmonary artery are normal in caliber. The cardiac chambers are normal in size. Mild coronary artery calcifications are seen. No pericardial effusion or pericardial thickening. The esophagus is nondilated. The imaged upper abdomen is stable without acute abnormality. There are atherosclerotic calcifications of the abdominal aorta. There are degenerative changes of the thoracic spine. The soft tissues of the chest wall are unremarkable.. Emphysema: Mild (5-25%), centrilobular, upper lobe Coronary Artery Calcifications: Circumflex mild; Left Anterior Descending mild; Right Coronary minimum Echo: 05/2022 CONCLUSIONS: - Technically difficult exam due to COPD. - Exam indication: Shortness of Breath - The left ventricle is normal in size. Left ventricular systolic function is normal. EF = 59 5% (2D biplane) Normal left ventricular diastolic function. - The right ventricle is normal in size. Right ventricular systolic function is normal. - There are no significant valvular abnormalities. - The patient has not had a prior CC echocardiographic exam for comparison. Review of Systems Constitutional: Negative for activity change, fatigue and unexpected weight change. HENT: Negative for congestion, mouth sores, postnasal drip and sinus pressure. Respiratory: Positive for shortness of breath. Negative for cough, chest tightness and wheezing. Cardiovascular: Negative for chest pain and leg swelling. Neurological: Negative for dizziness and light-headedness. BP (P) 120/78 Pulse (P) 104 Resp (P) 14 Wt (P) 73.9 kg (163 lb) LMP 02/19/2015 SpO2 (P) 99% BMI (P) 27.98 kg/m Physical Exam Vitals reviewed. Constitutional: General: She is not in acute distress. Appearance: Normal appearance. She is not ill-appearing. HENT: Nose: No congestion. Mouth/Throat: Mouth: Mucous membranes are moist. Pharynx: No oropharyngeal exudate. Cardiovascular: Rate and Rhythm: Normal rate and regular rhythm. Pulses: Normal pulses. Pulmonary: Effort: Pulmonary effort is normal. No respiratory distress. Breath sounds: No wheezing. Musculoskeletal: Right lower leg: No edema. Left lower leg: No edema. Lymphadenopathy: Cervical: No cervical adenopathy. Skin: General: Skin is warm and dry. Capillary Refill: Capillary refill takes less than 2 seconds. Neurological: General: No focal deficit present. Mental Status: She is alert. ASSESSMENT/PLAN: 1. Stage 3 severe COPD by GOLD classification ([facility]) - ICD9: 496, ICD10: J44.9 (primary diagnosis) - COPD symptoms stable - Will switch to nebulized treatments d/t feeling like she can't adequately use inhalers. - ARFORMOTEROL 15 MCG/2 ML SOLUTION FOR NEBULIZATION - BUDESONIDE 0.5 MG/2 ML SUSPENSION FOR NEBULIZATION - continue Spiriva - continue PRN Albuterol and Duoneb - SPIROMETRY WITH DILATOR IF OBSTRUCTED - LUNG DIFFUSION CAPACITY (DLCO) 2. Former cigarette smoker - ICD9: V15.82, ICD10: Z87.891 - quit smoking and vaping in 2022 - missed her [facility] visit in August - agreeable to being rescheduled - continued smoking cessation encouraged 3. History of pulmonary embolism - ICD9: V12.55, ICD10: Z86.711 - on chronic Eliquis 4. Lung nodules - ICD9: 793.19, ICD10: R91.8 - follows with [facility], needs to be rescheduled F/u 6 months Portions of this documentation were copied and pasted from previous office visit notes in order to provide a cohesive continuity of the history. The note has been reviewed and edited and updated as necessary. Marisol Amanda APRN.CNP I spent a total of 42 minutes on the date of the service which included preparing to see the patient, [id number] patient care, completing clinical documentation, performing a medically appropriate examination, counseling and educating the patient/family/caregiver, and ordering medications, tests, or procedures. documented in this encounter [facility] 12-05-2023 Note HNO ID: [id number] Author: MARISOL AMANDA APRN.CNP Service: ? Author Type: Nurse Practitioner Type: Progress Notes Filed: 12/05/2023 15:29 Note Text: Pulmonary Medicine Patients name: Debbie Montes PCP: Kashif Bernard MD CC: COPD follow-up HPI: Debbie Montes is a 58 year old female former 30 pack year smoker (quit 03/2022) with PMH significant for mild asthma in past, severe COPD (normal alpha 1 antitrypsin), VTE on chronic Eliquis (seen by Hematology with positive for heterozygous FVL, Prothrombin gene, and positive anticardiolipin Ab.), lung nodules, COVID 08/2021 and allergic rhinitis. Current therapy consists of Symbicort and Spirva. Previously did not tolerate Trelegy secondary to cough. Also uses PRN Duoneb and Albuterol. Continued cessation from smoking and vaping. Today, patient reports occasional cough, mostly in the morning. Occasional clear sputum. No hemoptysis. No recent wheezing. Rare dyspnea at rest. Her biggest complaint continues to be gradually worsening dyspnea with exertion. Notes that even daily tasks around the house causes dyspnea. She limits activities she does outside of her home as she worries she will become too SOB. Reports compliance with inhaled therapy but can't hold her breath long enough to feel like she is getting the full benefit of the medication. Albuterol use is 4-5 times a week. Duoneb use is at least daily, sometimes 2 times. Finds nebulizer treatment to be helpful. SPO2 at home 93-99%. Denies any urgent care or ED visits in the last year related to respiratory concerns. No steroids or antibiotics. 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 Allergies: Silvadene [Silver S* Intolerance Tetracycline GI Upset Augmentin [Amoxicil* GI Upset Cymbalta [Duloxetin* Other: See Comments Comment:GI upset; poor appetite Effexor Xr [Venlafa* Diarrhea Comment:Thinks maybe might be able to tolerate like Celexa after a while Sudafed [Pseudoephe* Intolerance Comment:heart racing Tramadol GI Upset Vicodin [Hydrocodon* Itching, Vomiting Comment:[place] very off balance; can take codeine Wellbutrin Sr [Bupr* Mental Status Change Comment:felt stoned Zoloft [Sertraline * Diarrhea Medication List Accurate as of December 05, 2023 12:52 PM. If you have any questions, ask your nurse or doctor. CONTINUE taking these medications albuterol HFA 90 mcg/actuation inhaler Commonly known as: PROVENTIL HFA, VENTOLIN HFA Inhale 2 Puffs as instructed every 6 hours as needed for wheezing/shortness of breath. ALPRAZolam 0.5 mg tablet Commonly known as: XANAX Take 1 tablet by mouth at bedtime as needed for up to 60 days. amLODIPine 10 mg tablet Commonly known as: NORVASC Take 1 tablet by mouth once daily. apixaban 5 mg tab(s) Commonly known as: ELIQUIS Take 1 tablet by mouth two times a day. aspirin, enteric coated 81 mg EC tablet Commonly known as: ASPIRIN, ENTERIC COATED atorvastatin 40 mg tablet Commonly known as: LIPITOR Take 1 tablet by mouth once daily. budesonide-formoterol 160-4.5 mcg/actuation inhaler Commonly known as: BREYNA Inhale 2 Puffs as instructed two times a day. cetirizine 10 mg tablet Commonly known as: ZyrTEC Take 1 tablet by mouth once daily. citalopram 40 mg tablet Commonly known as: CeleXA Take 1 tablet by mouth once daily. cyclobenzaprine 10 mg tablet Commonly known as: FLEXERIL Take 1 tablet by mouth three times daily as needed for muscle spasm. furosemide 20 mg tablet Commonly known as: LASIX 1 daily as needed to manage swelling of feet and lower legs. ipratropium-albuterol 0.5 mg-3 mg(2.5 mg base)/3 mL Nebu Commonly known as: DUONEB Inhale 3 mL as instructed every 6 hours as needed (wheezing/shortness of breath). montelukast 10 mg tablet Commonly known as: SINGULAIR Take 1 tablet by mouth daily at bedtime. omeprazole 40 mg capsule Commonly known as: PriLOSEC Take 1 capsule by mouth once daily. SPIRIVA RESPIMAT 2.5 mcg/actuation inhaler Generic drug: tiotropium bromide Inhale 2 Puffs as instructed once daily. inhale 2 puffs by mouth once daily triamcinolone acetonide 55 mcg nasal inhaler Commonly known as: NASACORT AQ Use 2 Sprays in each nostril once daily. zolpidem 5 mg tablet Commonly known as: AMBIEN Take 1 tablet by mouth at bedtime as needed for up to 90 days. DATA: I personally reviewed and analyzed all labs, radiographs and available pulmonary function testing PFT: 02/2023 IMPRESSION: Spirometry indicates severe (more content not included)... [facility] 11-22-2023 Telephone encounter Note PDMP website checked and validated. All prescriptions have been APPROPRIATELY filled. No suspicious activity was identified. 11/22/2023 by Morelia Guo APRN.CNP [facility] 11-22-2023 Miscellaneous Notes PDMP website checked and validated. All prescriptions have been APPROPRIATELY filled. No suspicious activity was identified. 11/22/2023 by Morelia Guo APRN.[facility] Patient has been identified by name and date of : Yes Patient phones for refill(s): Requested Prescriptions Pending Prescriptions Disp Refills atorvastatin (LIPITOR) 40 mg tablet 30 tablet 5 Sig: Take 1 tablet by mouth once daily. zolpidem (AMBIEN) 5 mg tablet 30 tablet 2 Sig: Take 1 tablet by mouth at bedtime as needed for up to 90 days. Date of last office visit in primary care: 07/21/2023 Date of next office visit in primary care: 02/02/2024 Please advise. Thank you. Laura Alejo LPN. documented in this encounter [facility] 11-21-2023 Telephone encounter Note Patient has been identified by name and date of : Yes Patient phones for refill(s): Requested Prescriptions Pending Prescriptions Disp Refills atorvastatin (LIPITOR) 40 mg tablet 30 tablet 5 Sig: Take 1 tablet by mouth once daily. zolpidem (AMBIEN) 5 mg tablet 30 tablet 2 Sig: Take 1 tablet by mouth at bedtime as needed for up to 90 days. Date of last office visit in primary care: 07/21/2023 Date of next office visit in primary care: 02/02/2024 Please advise. Thank you. Laura Alejo LPN. [facility] 08-24-2023 Telephone encounter Note The following approved medication requests have been transmitted electronically. Requested Prescriptions Pending Prescriptions Disp Refills omeprazole (PRILOSEC) 40 mg capsule 90 capsule 3 Sig: Take 1 capsule by mouth once daily. Kashif Bernard MD [facility] 08-24-2023 Miscellaneous Notes The following approved medication requests have been transmitted electronically. Requested Prescriptions Pending Prescriptions Disp Refills omeprazole (PRILOSEC) 40 mg capsule 90 capsule 3 Sig: Take 1 capsule by mouth once daily. Kashif Bernard MD Prescription Refill Information The patient has been identified by name and date of : Yes Caregiver verified no other encounters exist for this prescription request: Yes Caregiver confirmed with patient/requestor that no other refills are due, in the near future, with this provider at this time: Yes The last office visit in the department: 07/21/23 Does the patient have a future office visit with this provider/department: Yes Requested Prescriptions Pending Prescriptions Disp Refills omeprazole (PRILOSEC) 40 mg capsule 90 capsule 3 Sig: Take 1 capsule by mouth once daily. Destinee López LPN August 24, 2023 4:00 PM documented in this encounter [facility] 08-24-2023 Telephone encounter Note Prescription Refill Information The patient has been identified by name and date of : Yes Caregiver verified no other encounters exist for this prescription request: Yes Caregiver confirmed with patient/requestor that no other refills are due, in the near future, with this provider at this time: Yes The last office visit in the department: 07/21/23 Does the patient have a future office visit with this provider/department: Yes Requested Prescriptions Pending Prescriptions Disp Refills omeprazole (PRILOSEC) 40 mg capsule 90 capsule 3 Sig: Take 1 capsule by mouth once daily. Destinee López LPN August 24, 2023 4:00 PM [facility] 08-24-2023 Telephone encounter Note Patient has been identified by name and date of : Yes Patient phones for refill(s): Requested Prescriptions Pending Prescriptions Disp Refills ipratropium-albuterol (DUONEB) 0.5 mg-3 mg(2.5 mg base)/3 mL nebu 120 Each 5 Sig: Inhale 3 mL as instructed every 6 hours as needed (wheezing/shortness of breath). Date of last office visit in primary care: 07/21/2023 Date of next office visit in primary care: 02/02/2024 Please advise. Thank you. Laura Alejo LPN. [facility] 08-24-2023 Miscellaneous Notes Patient has been identified by name and date of : Yes Patient phones for refill(s): Requested Prescriptions Pending Prescriptions Disp Refills ipratropium-albuterol (DUONEB) 0.5 mg-3 mg(2.5 mg base)/3 mL nebu 120 Each 5 Sig: Inhale 3 mL as instructed every 6 hours as needed (wheezing/shortness of breath). Date of last office visit in primary care: 07/21/2023 Date of next office visit in primary care: 02/02/2024 Please advise. Thank you. Laura Alejo LPN. documented in this encounter [facility] 07-21-2023 History of Present illness Narrative This note was created using Yoomlyriter. Cleopatra Montes is a 58 year old female. Patient presents with: F/U 6 months SUBJECTIVE: Debbie Montes is a 58 year old year old lady here today for 6 month follow up appointment for review of medical conditions. Tings going pretty good Ambien helping so anxiety relieved some. Was falling asleep right away initially but now takes a while--asleep by 1AM and sleeps till 6:30AM. Able to wake up later if could sleep longer. Before was hardly getting any sleep. Has not needed alprazolam as much--still has some left Court hearing for disability 08/01. Spot on left upper arm--healed away with bactroban before. Noted easy bruising on Eliquis. 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 Current Outpatient Medications Medication Sig zolpidem (AMBIEN) 5 mg tablet Take 0.5-1 tablets by mouth at bedtime as needed for up to 30 days. montelukast (SINGULAIR) 10 mg tablet Take 1 tablet by mouth daily at bedtime. budesonide-formoterol (BREYNA) 160-4.5 mcg/actuation inhaler Inhale 2 Puffs as instructed two times a day. tiotropium bromide (SPIRIVA RESPIMAT) 2.5 mcg/actuation inhaler Inhale 2 Puffs as instructed once daily. inhale 2 puffs by mouth once daily citalopram (CELEXA) 40 mg tablet Take 1 tablet by mouth once daily. apixaban (ELIQUIS) 5 mg tab(s) Take 1 tablet by mouth two times a day. cetirizine (ZYRTEC) 10 mg tablet Take 1 tablet by mouth once daily. ALPRAZolam (XANAX) 0.5 mg tablet Take 1 tablet by mouth at bedtime as needed for up to 60 days. amLODIPine (NORVASC) 10 mg tablet Take 1 tablet by mouth once daily. albuterol HFA (PROVENTIL HFA, VENTOLIN HFA) 90 mcg/actuation inhaler Inhale 2 Puffs as instructed every 6 hours as needed for wheezing/shortness of breath. ipratropium-albuterol (DUONEB) 0.5 mg-3 mg(2.5 mg base)/3 mL nebu Inhale 3 mL as instructed every 6 hours as needed (wheezing/shortness of breath). triamcinolone acetonide (NASACORT AQ) 55 mcg nasal inhaler Use 2 Sprays in each nostril once daily. omeprazole (PRILOSEC) 40 mg capsule Take 1 capsule by mouth once daily. furosemide (LASIX) 20 mg tablet 1 daily as needed to manage swelling of feet and lower legs. aspirin, enteric coated (ASPIRIN, ENTERIC COATED) 81 mg EC tablet Take 81 mg by mouth once daily. atorvastatin (LIPITOR) 40 mg tablet Take 40 mg by mouth once daily. cyclobenzaprine (FLEXERIL) 10 mg tablet Take 1 tablet by mouth three times daily as needed for muscle spasm. (Patient not taking: Reported on 07/21/2023) No current facility-administered medications for this visit. Review of Systems Objective BP 114/64 Pulse 84 Temp 37.1 C (98.8 F) Resp 18 Wt 75.8 kg (167 lb) LMP 02/19/2015 SpO2 97% BMI 28.67 kg/m Physical Exam Constitutional: Appearance: Normal appearance. HENT: Head: Normocephalic. Eyes: Conjunctiva/sclera: Conjunctivae normal. Cardiovascular: Rate and Rhythm: Normal rate and regular rhythm. Heart sounds: Normal heart sounds. Pulmonary: Effort: Pulmonary effort is normal. Breath sounds: Normal breath sounds. Musculoskeletal: Right lower leg: No edema. Left lower leg: No edema. Skin: General: Skin is warm and dry. Neurological: General: No focal deficit present. Mental Status: She is alert and oriented to person, place, and time. Psychiatric: Attention and Perception: Attention and perception normal. Mood and Affect: Mood and affect normal. Speech: Speech normal. Behavior: Behavior normal. Thought Content: Thought content normal. Judgment: Judgment normal. Assessment and Plan Encounter Diagnosis ICD-10-CM 1. Sleep disturbance G47.9 zolpidem (AMBIEN) 5 mg tablet DISCONTINUED: zolpidem (AMBIEN) 5 mg tablet Improved with Ambien. Continue nightly for now then after a month or two can try decreasing 2. Folliculitis L73.9 mupirocin (BACTROBAN) 2 % ointment Bactroban as before 3. Vitamin D deficiency E55.9 VITAMIN D 25 HYDROXY Update lab 4. Essential hypertension I10 COMPREHENSIVE METABOLIC PANEL COMPLETE BLOOD COUNT BP controlled; stay on same meds 5. Reactive depression F32.9 Continue present management. 6. Panic disorder without agoraphobia F41.0 Continue present management 7. Hypercholesterolemia E78.00 LIPID PANEL BASIC Continue statin. Adjust as needed 8. Elevated hemoglobin A1c R73.09 HEMOGLOBIN A1C COMPREHENSIVE METABOLIC PANEL Continue working on healthy diet and regular exercise to prevent DM 9. Elevated alkaline phosphatase level R74.8 COMPREHENSIVE METABOLIC PANEL ALK PHOS ISOENZYM BL Monitor lab and further evlauation and treatment as indicated 10. Encounter for long-term current use of medication Z79.899 MAGNESIUM Above issues addressed with patient. Patient involved in shared decision making for management of medical issues. History and medications reviewed. Epic updated as needed Refills and/or prescriptions taken care of and meds adjusted as indicated after reviewed history, exam and labs. Health Maintenance reviewed. Updated record and/or ordered tests as recorded. Encouraged on efforts at healthy diet and regular exercise and adequate sleep. Kashif Bernard MD documented in this encounter [facility] 07-08-2023 Telephone encounter Note The following approved medication requests have been transmitted electronically. Requested Prescriptions Signed Prescriptions Disp Refills zolpidem (AMBIEN) 5 mg tablet 30 tablet 0 Sig: Take 0.5-1 tablets by mouth at bedtime as needed for up to 30 days. Authorizing Provider: KASHIF BERNARD MD [facility] 07-08-2023 Miscellaneous Notes The following approved medication requests have been transmitted electronically. Requested Prescriptions Signed Prescriptions Disp Refills zolpidem (AMBIEN) 5 mg tablet 30 tablet 0 Sig: Take 0.5-1 tablets by mouth at bedtime as needed for up to 30 days. Authorizing Provider: KASHIF BERNARD MD Requested Prescriptions Pending Prescriptions Disp Refills zolpidem (AMBIEN) 5 mg tablet 30 tablet 0 Sig: Take 0.5-1 tablets by mouth at bedtime as needed for up to 30 days. Date of last office visit in primary care: 03/06/2023 Date of next office visit in primary care: 07/21/2023 Please advise. Thank you. Cruzito Humphrey MA. documented in this encounter [facility] 07-06-2023 Telephone encounter Note Requested Prescriptions Pending Prescriptions Disp Refills zolpidem (AMBIEN) 5 mg tablet 30 tablet 0 Sig: Take 0.5-1 tablets by mouth at bedtime as needed for up to 30 days. Date of last office visit in primary care: 03/06/2023 Date of next office visit in primary care: 07/21/2023 Please advise. Thank you. Cruzito Humphrey MA. [facility] 05-31-2023 Telephone encounter Note Patient has been identified by name and date of : Yes Patient phones for refill(s): Requested Prescriptions Pending Prescriptions Disp Refills montelukast (SINGULAIR) 10 mg tablet 90 tablet 3 Sig: Take 1 tablet by mouth daily at bedtime. Date of last office visit in primary care: 04/10/2023 Date of next office visit in primary care: Visit date not found Patient Comment: Marina says in Dec.Dr Martinez canceled this Rx. I had requested a refil in for a refill in Dec. I've not been taking this recently due to this. But allergy season is here and my eyes and nose are itching bad (haven't had this in years) and my lungs feel tight. I think this is due to not taking this for a few months. Please advise. Thank you. Delio Murphy LPN. [facility] 05-31-2023 Miscellaneous Notes Patient has been identified by name and date of : Yes Patient phones for refill(s): Requested Prescriptions Pending Prescriptions Disp Refills montelukast (SINGULAIR) 10 mg tablet 90 tablet 3 Sig: Take 1 tablet by mouth daily at bedtime. Date of last office visit in primary care: 04/10/2023 Date of next office visit in primary care: Visit date not found Patient Comment: Marina says in Dec.Dr Martinez canceled this Rx. I had requested a refil in for a refill in Dec. I've not been taking this recently due to this. But allergy season is here and my eyes and nose are itching bad (haven't had this in years) and my lungs feel tight. I think this is due to not taking this for a few months. Please advise. Thank you. Delio Murphy LPN. documented in this encounter [facility] 04-10-2023 History of Present illness Narrative Patient presents with: Sinus Problem: sinus pressure and drainage x 2 days HPI: Feeling sick starting 2 nights ago. Has had minimal sinus pressure and blood streaked drainage for 1 week. She is caring for her older sister in hospice with ovarian cancer and wants to avoid getting her sick. Positive symptoms: improved Sore throat, Ear itching, Nasal Congestion, Rhinorrhea, Post nasal drainage, Sinus pressure, Negative symptoms: Cough, Chest tightness, OTC: coicidin Cold Medicine MEDICATIONS: Current Outpatient Medications Medication Sig budesonide-formoterol (BREYNA) 160-4.5 mcg/actuation inhaler Inhale 2 Puffs as instructed two times a day. tiotropium bromide (SPIRIVA RESPIMAT) 2.5 mcg/actuation inhaler Inhale 2 Puffs as instructed once daily. inhale 2 puffs by mouth once daily citalopram (CELEXA) 40 mg tablet Take 1 tablet by mouth once daily. apixaban (ELIQUIS) 5 mg tab(s) Take 1 tablet by mouth two times a day. cetirizine (ZYRTEC) 10 mg tablet Take 1 tablet by mouth once daily. zolpidem (AMBIEN) 5 mg tablet Take 0.5-1 tablets by mouth at bedtime as needed for up to 30 days. ALPRAZolam (XANAX) 0.5 mg tablet Take 1 tablet by mouth at bedtime as needed for up to 60 days. amLODIPine (NORVASC) 10 mg tablet Take 1 tablet by mouth once daily. albuterol HFA (PROVENTIL HFA, VENTOLIN HFA) 90 mcg/actuation inhaler Inhale 2 Puffs as instructed every 6 hours as needed for wheezing/shortness of breath. montelukast (SINGULAIR) 10 mg tablet Take 1 tablet by mouth daily at bedtime. ipratropium-albuterol (DUONEB) 0.5 mg-3 mg(2.5 mg base)/3 mL nebu Inhale 3 mL as instructed every 6 hours as needed (wheezing/shortness of breath). triamcinolone acetonide (NASACORT AQ) 55 mcg nasal inhaler Use 2 Sprays in each nostril once daily. cyclobenzaprine (FLEXERIL) 10 mg tablet Take 1 tablet by mouth three times daily as needed for muscle spasm. omeprazole (PRILOSEC) 40 mg capsule Take 1 capsule by mouth once daily. furosemide (LASIX) 20 mg tablet 1 daily as needed to manage swelling of feet and lower legs. aspirin, enteric coated (ASPIRIN, ENTERIC COATED) 81 mg EC tablet Take 81 mg by mouth once daily. atorvastatin (LIPITOR) 40 mg tablet Take 40 mg by mouth once daily. Current Facility-Administered Medications Medication Dose Route Frequency perflutren lipid microspheres 1.3 mL in NaCl (PF) 0.9% 10 mL injection (DEFINITY) INTRAVENOUS DIRECTED PRN sodium chloride 0.9 % (flush) 10 mL (BD POSIFLUSH) 10 mL INTRAVENOUS DIRECTED PRN ALLERGIES: ALLERGIES Allergen Reactions Silvadene [Silver S* Intolerance Tetracycline GI Upset Augmentin [Amoxicil* GI Upset Cymbalta [Duloxetin* Other: See Comments GI upset; poor appetite Effexor Xr [Venlafa* Diarrhea Thinks maybe might be able to tolerate like Celexa after a while Sudafed [Pseudoephe* Intolerance heart racing Tramadol GI Upset Vicodin [Hydrocodon* Itching, Vomiting [place] very off balance; can take codeine Wellbutrin Sr [Bupr* Mental Status Change felt stoned Zoloft [Sertraline * Diarrhea VITALS: BP 124/70 Pulse 102 Temp 37.1 C (98.8 F) Resp 16 Wt 75.3 kg (166 lb) LMP 02/19/2015 SpO2 96% BMI 28.49 kg/m PHYSICAL EXAM: GEN: mildly ill appearing HEENT: PERRL, EOMI, conjunctiva clear Ears: canals clear. TMs without erythema, bulge, or effusion Sinuses: non-tender frontal sinus, non-tender maxillary sinuses Throat: moist mucous membranes, mild erythema, no exudate Neck: supple, no thyromegaly, no lymphadenopathy HEART: regular rate and rhythm, no murmurs LUNGS: clear to auscultation, no wheezes or crackles, no increased WOB ASSESSMENT/PLAN: 1. Acute non-recurrent sinusitis, unspecified location - ICD9: 461.9, ICD10: J01.90 - suspect viral URI, differential includes influenza, COVID-19, and bacterial sinusitis. - Discussed supportive care treatment with rest, cold medicine, and analgesia. - Red flags to seek further treatment include chest pain, shortness of breath, and lethargy; in the ER if severe. - COVID & INFLUENZA A/B & RSV NAAT, ROUTINE testing to plan care for her sister. Yuriy Bella MD documented in this encounter [facility] 03-20-2023 Miscellaneous Notes JULIO CESAR 02/10/23. Previously filled mid February, but no refills on RX. Pended with refills. Shannan Magdaleno LPN documented in this encounter [facility] 12-09-2022 Miscellaneous Notes Patient given results and verbalized understanding of instructions given. Debbie Arias I put an order in for another culture she can come back in and just give a urine. Patient states not improved, frequency and pelvic pressure, should she come back or give another sample? Debbie Arias Left message for patient to return call. Debbie Juana Please call and see if uti symptoms have improved.She had a contaminated urine culture likely from skin bacteria and did not run a sensitivity. If symptoms persist would recommend another urine test. documented in this encounter [facility] 12-07-2022 History of Present illness Narrative Patient presents with: Urinary Problem: Possible kidney infection, frequency, pressure x 3 weeks HPI: Symptoms for 3 weeks. Dysuria: No Frequency: Yes, with little production Hematuria: No Discharge: No, has all over pruritis Nausea: maybe queezy at times Fever or chills: No Back pain: Yes, mid lumbar Abdominal pain: pelvic pressure-urge to urinate. Denies constipation. Has chronic issues with diarrhea. Prior UTI: 20 years ago Personal history of kidney stones: No Family history of kidney stones: No She has quit smoking and only uses a vape once a day. PAST MEDICAL HISTORY Diagnosis Date Allergic rhinitis, cause unspecified 10/23/2006 Anticardiolipin antibody positive COPD (chronic obstructive pulmonary disease) ([facility]) Heterozygous factor V Leiden mutation ([facility]) Heterozygous for prothrombin [id number] mutation ([facility]) PMH - PAST MEDICAL HISTORY OF PULMONARY NODULE Takotsubo syndrome Tobacco use disorder Unspecified asthma(493.90) Probably more than 10 years ago, breathing tests, Just a touch of asthma. MEDICATIONS: Current Outpatient Medications Medication Sig montelukast (SINGULAIR) 10 mg tablet Take 1 tablet by mouth daily at bedtime. triamcinolone acetonide (NASACORT AQ) 55 mcg nasal inhaler Use 2 Sprays in each nostril once daily. cyclobenzaprine (FLEXERIL) 10 mg tablet Take 1 tablet by mouth three times daily as needed for muscle spasm. omeprazole (PRILOSEC) 40 mg capsule Take 1 capsule by mouth once daily. ALPRAZolam (XANAX) 0.5 mg tablet Take 1 tablet by mouth at bedtime as needed for up to 60 days. albuterol HFA (PROVENTIL HFA, VENTOLIN HFA) 90 mcg/actuation inhaler Inhale 2 Puffs as instructed every 6 hours as needed for wheezing/shortness of breath. tiotropium bromide (SPIRIVA RESPIMAT) 2.5 mcg/actuation inhaler Inhale 2 Puffs as instructed once daily. budesonide-formoterol (SYMBICORT) 160-4.5 mcg/actuation inhaler Inhale 2 Puffs as instructed twice daily. citalopram (CELEXA) 20 mg tablet Take 1.5 tablets by mouth once daily. amLODIPine (NORVASC) 10 mg tablet Take 1 tablet by mouth once daily. apixaban (ELIQUIS) 5 mg tab(s) Take 1 tablet by mouth twice daily. cetirizine (ZYRTEC) 10 mg tablet Take 1 tablet by mouth once daily. aspirin, enteric coated (ASPIRIN, ENTERIC COATED) 81 mg EC tablet Take 81 mg by mouth once daily. atorvastatin (LIPITOR) 40 mg tablet Take 40 mg by mouth once daily. ipratropium-albuterol (DUONEB) 0.5 mg-3 mg(2.5 mg base)/3 mL nebu Inhale 3 mL as instructed every 6 hours as needed (wheezing/shortness of breath). furosemide (LASIX) 20 mg tablet 1 daily as needed to manage swelling of feet and lower legs. Current Facility-Administered Medications Medication Dose Route Frequency perflutren lipid microspheres 1.3 mL in NaCl (PF) 0.9% 10 mL injection (DEFINITY) INTRAVENOUS DIRECTED PRN sodium chloride 0.9 % (flush) 10 mL (BD POSIFLUSH) 10 mL INTRAVENOUS DIRECTED PRN ALLERGIES: ALLERGIES Allergen Reactions Silvadene [Silver S* Intolerance Tetracycline GI Upset Augmentin [Amoxicil* GI Upset Cymbalta [Duloxetin* Other: See Comments GI upset; poor appetite Effexor Xr [Venlafa* Diarrhea Thinks maybe might be able to tolerate like Celexa after a while Sudafed [Pseudoephe* Intolerance heart racing Tramadol GI Upset Vicodin [Hydrocodon* Itching, Vomiting [place] very off balance; can take codeine Wellbutrin Sr [Bupr* Mental Status Change felt stoned Zoloft [Sertraline * Diarrhea VITALS: BP 120/84 Pulse 115 Temp 36.8 C (98.2 F) Resp 21 Wt 75.3 kg (166 lb) LMP 02/19/2015 SpO2 97% BMI 28.49 kg/m PHYSICAL EXAM: GEN: NAD HEENT: EOMI, conjunctiva clear, HEART: regular rate and rhythm during my exam, no murmurs LUNGS: clear to auscultation, no wheezes or crackles, no increased WOB ABDOMEN: Soft, nondistended, no masses, bilateral suprapubic tenderness BACK: bilateral lumbar discomfort with palpation ASSESSMENT/PLAN: 1. Urinary frequency - ICD9: 788.41, ICD10: R35.0 (primary diagnosis) - UA DIP, URINE (POC) - small LE only. Chart review shows epithelial cells and normal urogenital billy on past UAs and cultures. Send - URINE CULTURE. Will treat if significant growth. She may consider oxybutynin for overactive bladder if symptoms persist. Yuriy Bella MD documented in this encounter [facility] 09-19-2022 Miscellaneous Notes Mychart message sent ----- Message from Kashif Bernard MD sent at 09/19/2022 1:15 AM EDT ----- Negative test. Recheck in 3 years or do colonoscopy for screening documented in this encounter [facility] 08-05-2022 History of Present illness Narrative This note was created using [employer]. Subjective Debbie Montes is a 57 year old female. Patient presents with: F/U 6 months SUBJECTIVE: Debbie Montes is a 57 year old year old lady here today for 6 month follow up appointment for review of medical conditions. Dtr present Respiratory doctor says has long COVID lung. COVID was December 2020. RLS2 to 3 times a week. Hard to sleep. Cannot get legs settled down. Gets cramping in foot. Needs to take citalopram routinely. Tried to quit cold turkey once but made her feel terrible. Needs PPI daily or stomach pains and reflux start after a couple days off. Nausea. Xanax just periodically, not daily. Still vaping but not a lot. Did well with quitting smoking. PAST MEDICAL HISTORY Diagnosis Date Allergic rhinitis, cause unspecified 10/23/2006 Anticardiolipin antibody positive COPD (chronic obstructive pulmonary disease) ([facility]) Heterozygous factor V Leiden mutation ([facility]) Heterozygous for prothrombin [id number] mutation ([facility]) PMH - PAST MEDICAL HISTORY OF PULMONARY NODULE Takotsubo syndrome Tobacco use disorder Unspecified asthma(493.90) Probably more than 10 years ago, breathing tests, Just a touch of asthma. Current Outpatient Medications Medication Sig omeprazole (PRILOSEC) 40 mg capsule Take 1 capsule by mouth once daily. ALPRAZolam (XANAX) 0.5 mg tablet Take 1 tablet by mouth at bedtime as needed for up to 60 days. albuterol HFA (PROVENTIL HFA, VENTOLIN HFA) 90 mcg/actuation inhaler Inhale 2 Puffs as instructed every 6 hours as needed for wheezing/shortness of breath. tiotropium bromide (SPIRIVA RESPIMAT) 2.5 mcg/actuation inhaler Inhale 2 Puffs as instructed once daily. budesonide-formoterol (SYMBICORT) 160-4.5 mcg/actuation inhaler Inhale 2 Puffs as instructed twice daily. cyclobenzaprine HCl (FLEXERIL ORAL) Take by mouth as needed (muscle spasm). citalopram (CELEXA) 20 mg tablet Take 1.5 tablets by mouth once daily. amLODIPine (NORVASC) 10 mg tablet Take 1 tablet by mouth once daily. apixaban (ELIQUIS) 5 mg tab(s) Take 1 tablet by mouth twice daily. cetirizine (ZYRTEC) 10 mg tablet Take 1 tablet by mouth once daily. furosemide (LASIX) 20 mg tablet 1 daily as needed to manage swelling of feet and lower legs. aspirin, enteric coated (ASPIRIN, ENTERIC COATED) 81 mg EC tablet Take 81 mg by mouth once daily. atorvastatin (LIPITOR) 40 mg tablet Take 40 mg by mouth once daily. montelukast (SINGULAIR) 10 mg tablet Take 1 tablet by mouth daily at bedtime. ipratropium-albuterol (DUONEB) 0.5 mg-3 mg(2.5 mg base)/3 mL nebu Inhale 3 mL as instructed every 6 hours as needed (wheezing/shortness of breath). triamcinolone acetonide (NASACORT AQ) 55 mcg nasal inhaler Use 2 Sprays in each nostril once daily. cyclobenzaprine (FLEXERIL) 10 mg tablet Take 1 tablet by mouth three times daily as needed for muscle spasm. Current Facility-Administered Medications Medication Dose Route Frequency perflutren lipid microspheres 1.3 mL in NaCl (PF) 0.9% 10 mL injection (DEFINITY) INTRAVENOUS DIRECTED PRN sodium chloride 0.9 % (flush) 10 mL (BD POSIFLUSH) 10 mL INTRAVENOUS DIRECTED PRN Review of Systems Objective BP 118/62 Pulse 80 Temp 36.8 C (98.3 F) Resp 18 Wt 74.8 kg (165 lb) LMP 02/19/2015 SpO2 97% BMI 28.32 kg/m Last 5 Encounter Wt Readings: Date: Wt: 08/05/2022 74.8 kg (165 lb) 07/21/2022 75.3 kg (166 lb) 04/14/2022 71.2 kg (157 lb) 01/25/2022 68.9 kg (152 lb) 01/24/2022 68 kg (150 lb) No waist measurement recorded Estimated body mass index is 28.32 kg/m as calculated from the following: Height as of 01/25/22: 162.6 cm (5' 4). Weight as of this encounter: 74.8 kg (165 lb). Last 5 Encounter BP Readings: Date: BP: 08/05/2022 118/62 07/21/2022 126/72 04/14/2022 124/78 01/25/2022 111/69 01/20/2022 126/78 Physical Exam Constitutional: Appearance: Normal appearance. HENT: Head: Normocephalic. Eyes: Conjunctiva/sclera: Conjunctivae normal. Cardiovascular: Rate and Rhythm: Normal rate and regular rhythm. Heart sounds: Normal heart sounds. Pulmonary: Effort: Pulmonary effort is normal. Breath sounds: Normal breath sounds. Skin: General: Skin is warm and dry. Neurological: General: No focal deficit present. Mental Status: She is alert and oriented to person, place, and time. Psychiatric: Mood and Affect: Mood normal. Behavior: Behavior normal. Thought Content: Thought content normal. Judgment: Judgment normal. Assessment and Plan Encounter Diagnosis ICD-10-CM 1. Essential hypertension I10 controlled 2. Mixed anxiety depressive disorder F41.8 stable on celexa 3. Elevated hemoglobin A1c R73.09 HGB A1C 4. Asthma with chronic obstructive pulmonary disease (COPD) ([facility]) J44.9 montelukast (SINGULAIR) 10 mg tablet triamcinolone acetonide (NASACORT AQ) 55 mcg nasal inhaler 5. Stage 3 severe COPD by GOLD classification ([facility]) J44.9 ipratropium-albuterol (DUONEB) 0.5 mg-3 mg(2.5 mg base)/3 mL nebu Told has long-COVID lung issues by pulmonoary medicine. 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 Vitamin D deficiency E55.9 VITAMIN D 25 HYDROXY 7. Neck pain M54.2 cyclobenzaprine (FLEXERIL) 10 mg tablet From pulled muscle from coughing spell due to COPD 8. Colon cancer screening Z12.11 COLOGUARD 9. Encounter for long-term current use of medication Z79.899 COMP METABOLIC PANEL CBC MAGNESIUM BLD 10. On continuous oral anticoagulation Z79.01 Above issues addressed with patient. Patient involved in shared decision making for management of medical issues. History and medications reviewed. Epic updated as needed Refills and/or prescriptions taken care of and meds adjusted as indicated after reviewed history, exam and labs. Health Maintenance reviewed. Updated record and/or ordered tests as recorded. Encouraged on efforts at healthy diet and regular exercise and adequate sleep. Continue present management.Further evaluation and treatment as indicated. Kashif Bernard MD documented in this encounter [facility] 07-21-2022 History of Present illness Narrative Images from the original note were not included. Patient: Debbie Montes PCP: Kashif Bernard MD CC: COPD HPI: Debbie Montes 57 year old female recent former 30 pack year smoker with PMH significant for mild asthma in past, severe COPD, VTE on chronic Eliquis, lung nodules, COVID 08/2021 and allergic rhinitis. Current therapy consists of Symbicort and Spirva. Previously did not tolerate Trelegy secondary to cough. With regard to VTE, has family history of familial thrombophilia. Had PE in face of COVID infection treated with Eliquis for 6 months. Hypercoagulable panel obtained after course completed, positive for heterozygous FVL, Prothrombin gene, and positive anticardiolipin Ab. [facility] anticoagulation recommended by hematology. Most recent echocardiogram 05/2022 showed no evidence of pulmonary hypertension. Today, patient states she has not smoked since March. However, she started vaping. She states she typically uses it once daily, but will hold it in her hand frequent. Currently participating in pulmonary rehab at [facility]. No significant cough, sputum production or wheezing. Continues with exertional dyspnea with minimal effort. Occasional lower extremity edema especially with heat while in [place]. 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 Allergies: Silvadene [Silver S* Intolerance Tetracycline GI Upset Augmentin [Amoxicil* GI Upset Cymbalta [Duloxetin* Other: See Comments Comment:GI upset; poor appetite Effexor Xr [Venlafa* Diarrhea Comment:Thinks maybe might be able to tolerate like Celexa after a while Sudafed [Pseudoephe* Intolerance Comment:heart racing Tramadol GI Upset Vicodin [Hydrocodon* Itching, Vomiting Comment:[place] very off balance; can take codeine Wellbutrin Sr [Bupr* Mental Status Change Comment:felt stoned Zoloft [Sertraline * Diarrhea omeprazole (PRILOSEC) 40 mg capsule^Take 1 capsule by mouth once daily.^Disp: 90 capsule^Rfl: 3 ALPRAZolam (XANAX) 0.5 mg tablet^Take 1 tablet by mouth at bedtime as needed for up to 60 days.^Disp: 28 tablet^Rfl: 0 albuterol HFA (PROVENTIL HFA, VENTOLIN HFA) 90 mcg/actuation inhaler^Inhale 2 Puffs as instructed every 6 hours as needed for wheezing/shortness of breath.^Disp: 6.7 g^Rfl: 5 tiotropium bromide (SPIRIVA RESPIMAT) 2.5 mcg/actuation inhaler^Inhale 2 Puffs as instructed once daily.^Disp: 4 g^Rfl: 11 budesonide-formoterol (SYMBICORT) 160-4.5 mcg/actuation inhaler^Inhale 2 Puffs as instructed twice daily.^Disp: 1 Each^Rfl: 11 cyclobenzaprine HCl (FLEXERIL ORAL)^Take by mouth as needed (muscle spasm).^Disp: ^Rfl: citalopram (CELEXA) 20 mg tablet^Take 1.5 tablets by mouth once daily.^Disp: 135 tablet^Rfl: 3 amLODIPine (NORVASC) 10 mg tablet^Take 1 tablet by mouth once daily.^Disp: 90 tablet^Rfl: 3 apixaban (ELIQUIS) 5 mg tab(s)^Take 1 tablet by mouth twice daily.^Disp: 60 tablet^Rfl: 11 cetirizine (ZYRTEC) 10 mg tablet^Take 1 tablet by mouth once daily.^Disp: 30 tablet^Rfl: 11 montelukast (SINGULAIR) 10 mg tablet^Take 1 tablet by mouth daily at bedtime.^Disp: 90 tablet^Rfl: 3 furosemide (LASIX) 20 mg tablet^1 daily as needed to manage swelling of feet and lower legs.^Disp: 30 tablet^Rfl: 0 ipratropium-albuterol (DUONEB) 0.5 mg-3 mg(2.5 mg base)/3 mL nebu^Inhale 3 mL as instructed every 6 hours as needed (wheezing/shortness of breath).^Disp: 120 Vial^Rfl: 5 triamcinolone acetonide (NASACORT AQ) 55 mcg nasal inhaler^Use 2 Sprays in each nostril once daily.^Disp: 1 Inhaler^Rfl: 5 aspirin, enteric coated (ASPIRIN, ENTERIC COATED) 81 mg EC tablet^Take 81 mg by mouth once daily.^Disp: ^Rfl: atorvastatin (LIPITOR) 40 mg tablet^Take 40 mg by mouth once daily.^Disp: ^Rfl: Social History Tobacco Use Smoking status: Former Packs/day: 1.00 Years: 40.00 Pack years: 40.00 Types: Cigarettes Start date: 02/07/1980 Smokeless tobacco: Never Tobacco comments: started age 16 - currently 0-4 cig per day. Quit in the past for 1 year. Vaping Use Vaping Use: Some days Substance Use Topics Alcohol use: Yes Comment: rarely Drug use: No Family History Problem Relation Age of Onset Heart Mother Hypertension Mother Diabetes Mother COPD Mother Developed before she . She never smoked. other (Macular degeneration) Mother other (Cataracts) Mother Emphysema Father Hypertension Sister Cancer Sister ovarian with mets to lung lining Ovarian cancer Sister Hypertension Sister No Known Problems Maternal Grandmother No Known Problems Maternal Grandfather No Known Problems Paternal Grandmother No Known Problems Paternal Grandfather other (MTHFR) Daughter Bleeding disorders other (MTHFR) Daughter Bleeding disorders PAST SURGICAL HISTORY Procedure Laterality Date LIG/TRNSXJ FLP TUBE ABDL/VAG APPR UNI/BI 1989 Tubal ligation PAST SURGICAL HISTORY OF Cyst drained in right breast x 2 PAST SURGICAL HISTORY OF reconnect ligament in the right side toe TONSILLECTOMY PRIMARY/SECONDARY <AGE 13 AGE 7 Tonsillectomy I reviewed the past medical history, family history, social history and surgical history with changes noted above and updated in EMR. IMMUNIZATIONS Prevnar - xx Pneumovax - 01/09/2017 Influenza - 12/14/2021 COVID-19 - xx ROS: General: No fevers, chills or night sweats. No unintended weight loss. Appetite . Eyes, Ears, nose, throat: No post nasal drip, rhinorrhea, purulent nasal discharge, epistaxis. No hoarseness. Vision stable. Cardiac: No angina, orthopnea. Resp: See HPI. GI: No heartburn, dysphagia. Musculoskeletal: No pain. Neuro: No headache, focal weakness, tremor. Skin: No rash. Otherwise negative. PHYSICAL EXAMINATION: BP 126/72 Pulse 91 Resp 17 Wt 75.3 kg (166 lb) LMP 02/19/2015 SpO2 99% BMI 28.49 kg/m Gen: No acute distress. Cooperative with examination. HEENT: Normocephalic. Sclera, conjunctiva clear. Oral hygeine and dentition good. No thrush. Resp: No stridor, accessory respiratory muscle use, supra-sternal or intercostal retractions. No wheezes, crackles. CV: Regular rythm. Heart tones normal. Radial pulses normal. Abd: Non distended. MSK: No kyphoscoliosis. Ext: Warm and well perfused. No clubbing, cyanosis, edema. Skin: No rash, ecchymoses. Neuro: Mental status normal. Affect normal. No tremor. DATA: PFT, 01/24/2022 IMPRESSION: Spirometry indicates severe obstruction. The diffusing capacity is moderately reduced. The presence of a reduced lung diffusing capacity - that does not normalize when measured independent of alveolar volume (kCO) suggests a parenchymal or pulmonary vascular disorder. Electronically Signed On 01-24-2022 16:29:52 EST by Maria Field M.D. LDCT chest, 03/15/2022 IMPRESSION: LungRADS category: 2 LungRADS modifier: None LungRADS 0 reason: n/a Recommendations: Continue annual screening with LDCT in 12 months. Echocardiogram, 05/16/2022 CONCLUSIONS: - Technically difficult exam due to COPD. - Exam indication: Shortness of Breath - The left ventricle is normal in size. Left ventricular systolic function is normal. EF = 59 5% (2D biplane) Normal left ventricular diastolic function. - The right ventricle is normal in size. Right ventricular systolic function is normal. - There are no significant valvular abnormalities. - The patient has not had a prior CC echocardiographic exam for comparison. Labs Component Latest Ref Rng & Units 04/14/2022 Alpha 1 Antitrypsin 90 - 200 mg/dL 163 ASSESSMENT/PLAN: 1. Stage 3 severe COPD by GOLD classification (HCC) - ICD9: 496, ICD10: J44.9 (primary diagnosis) Severe COPD with persistent exertional dyspnea despite triple therapy. Continue pulmonary rehab Continue Trelegy ellipta. Rinse mouth after each use to help prevent oral thrush. Albuterol HFA inhaler, 2 inhalations 10-15 minutes prior to activities associated with shortness of breath, and as needed for rescue relief of shortness of breath or wheezing, up to 4 times daily. Congratulated patient on stopping smoking. - PARKING FOR HANDICAPPED 2. Former cigarette smoker - ICD9: V15.82, ICD10: Z87.891 Recent former smoker with sequelae of COPD. Enrolled in lung cancer screening. Next LDCT in 03/2023 3. Lung nodules - ICD9: 793.19, ICD10: R91.8 Stable 4. History of pulmonary embolism - ICD9: V12.55, ICD10: Z86.711 No evidence of pulmonary hypertension on echo On life-long anticoagulation. Portions of this documentation were copied and pasted from previous office visit notes in order to provide a cohesive continuity of the history. The note has been reviewed and edited and updated as necessary. Sayra Rowe PA-C documented in this encounter [facility] 07-19-2022 Miscellaneous Notes The following approved medication requests have been transmitted electronically. Requested Prescriptions Signed Prescriptions Disp Refills omeprazole (PRILOSEC) 40 mg capsule 90 capsule 3 Sig: Take 1 capsule by mouth once daily. Authorizing Provider: KASHIF BERNARD ALPRAZolam (XANAX) 0.5 mg tablet 28 tablet 0 Sig: Take 1 tablet by mouth at bedtime as needed for up to 60 days. Authorizing Provider: KASHIF BERNARD MD Patient has been identified by name and date of : Yes, Provider Elen Date 07/19/22 Time 7:22am Patient phones for refill(s): Requested Prescriptions Pending Prescriptions Disp Refills omeprazole (PRILOSEC) 40 mg capsule 90 capsule 3 Sig: Take 1 capsule by mouth once daily. ALPRAZolam (XANAX) 0.5 mg tablet 28 tablet 0 Sig: Take 1 tablet by mouth at bedtime as needed for up to 60 days. Date of last office visit in primary care: 12/14/21 Next appt 08/05/22 Last 2 Encounter Wt Readings: Date: Wt: 04/14/2022 71.2 kg (157 lb) 01/25/2022 68.9 kg (152 lb) Please advise. Thank you. Mary Watkins LPN documented in this encounter [facility] 06-11-2022 Miscellaneous Notes Okayed Patient has been identified by name and date of : No Patient phones for refill(s): Requested Prescriptions Pending Prescriptions Disp Refills albuterol HFA (PROVENTIL HFA, VENTOLIN HFA) 90 mcg/actuation inhaler 6.7 g 5 Sig: Inhale 2 Puffs as instructed every 6 hours as needed for wheezing/shortness of breath. Date of last office visit in primary care: 12/14/21 Last 2 Encounter Wt Readings: Date: Wt: 04/14/2022 71.2 kg (157 lb) 01/25/2022 68.9 kg (152 lb) Previous labs/tests for medication: Not applicable Please advise. Thank you. Destinee Cruz LPN documented in this encounter [facility] 04-14-2022 History of Present illness Narrative Images from the original note were not included. . [facility] Note Patient name: Debbie Montes PCP: Kashif Bernard MD CC: Follow-up COPD HPI: Debbie Montes 57 year old female current 30 pack year smoker with PMH significant for mild asthma in past, severe COPD, VTE on chronic Eliquis, lung nodules, COVID 08/2021 and allergic rhinitis, former patient of Dr. Payne new to me. Current therapy with Symbicort and Spiriva, intolerant of Trelegy Ellipta due to cough. With regard to VTE, has family history of familial thrombophilia. Had PE in face of COVID infection treated with Eliquis for 6 months. Hypercoagulable panel obtained after course completed, positive for heterozygous FVL, Prothrombin gene, and positive anticardiolipin Ab. [facility] anticoagulation recommended by hematology. Despite her severe obstruction on pulmonary function test, she states that she was fairly functional but ever since her pulmonary embolism, she has been very limited in her activities of daily living. She gets short of breath just by changes in position. She has to stop and rest frequently when trying to vacuum, climb stairs, carry heavy objects. She is compliant with her inhaled therapy as well as albuterol which do not seem to offer her much relief of her dyspnea. No recent upper respiratory infection. Recent lung cancer screening test shows stable nodules and no suspicious lesions. She just recently quit smoking 7 weeks ago. COPD Assessment Test I never cough 0 1 2 3 4 5 I cough all the time; Score 3 I have no phlegm 0 1 2 3 4 5 My chest is completely full of phlegm; Score 2 My chest does not feel tight at all 0 1 2 3 4 5 My chest chest feels very tight; Score 3 When I walk up a hill or one flight of stairs I am not breathless 0 1 2 3 4 5 When I walk up a hill or one flight or stairs I am very breathless; Score 5 I am not limited doing any activities at home 0 1 2 3 4 5 I am very limited doing activities at home; Score 4 I am confident leaving my home despite my lung condition 0 1 2 3 4 5 I am not at all confident leaving my home because of my lung condition; Score 4 I sleep soundly 0 1 2 3 4 5 don't sleep soundly because of my lungs; Score 3 I have lots of energy 0 1 2 3 4 5 I have no energy at all; Score 4 Total Score: 28 DATA: PFT 01/2022: Review of recent pulmonary function test show severe obstruction and moderate reduction in diffusing capacity Imaging / Diagnostic Studies: DATE OF EXAM: Mar 15 2022 2:10PM [facility] [place] IVCON / EXAMINATION: CHEST CT WITHOUT CONTRAST (LOW-DOSE CT LUNG CANCER SCREENING PROTOCOL) COMPARISON: Chest CT dated 12/30/2020. Nodule 1: This Solid nodule is located in the Right Upper Lobe on slice number 72 with an average diameter of 3.4 mm (3.8 mm x 2.9 mm). Nodule 2: This Solid nodule is located in the Right Upper Lobe on slice number 83 with an average diameter of 1.8 mm (2.3 mm x 1.3 mm). Nodule 3: This Solid nodule is located in the Right Upper Lobe on slice number 76 with an average diameter of 1.7 mm (1.7 mm x 1.7 mm). Other lung nodule comments: Small pulmonary nodules are stable since prior exam. Additional subpleural nodular opacities in the lung apices are likely scarring for example in the right upper lobe image 55. Other findings: The central airways are patent without endobronchial lesion. There is biapical pleural-parenchymal scarring. Linear atelectasis is noted in the right upper and middle lobes as well as lingula. No new focal consolidation. The the imaged thyroid gland is unremarkable. No thoracic lymphadenopathy. There are atherosclerotic calcifications of the thoracic aorta. The thoracic aorta and main pulmonary artery are normal in caliber. The cardiac chambers are normal in size. Mild coronary artery calcifications are seen. No pericardial effusion or pericardial thickening. The esophagus is nondilated. The imaged upper abdomen is stable without acute abnormality. There are atherosclerotic calcifications of the abdominal aorta. There are degenerative changes of the thoracic spine. The soft tissues of the chest wall are unremarkable.. Emphysema: Mild (5-25%), centrilobular, upper lobe Coronary Artery Calcifications: Circumflex mild; Left Anterior Descending mild; Right Coronary minimum Personally reviewed images which show stable bilateral pulmonary nodules PAST MEDICAL HISTORY Diagnosis Date Allergic rhinitis, cause unspecified 10/23/2006 Anticardiolipin antibody positive COPD (chronic obstructive pulmonary disease) (HCC) Heterozygous factor V Leiden mutation (HCC) Heterozygous for prothrombin [id number] mutation ([facility]CC) PMH - PAST MEDICAL HISTORY OF PULMONARY NODULE Takotsubo syndrome Tobacco use disorder Unspecified asthma(493.90) Probably more than 10 years ago, breathing tests, Just a touch of asthma. ALLERGIES Allergen Reactions Silvadene [Silver S* Intolerance Tetracycline GI Upset Augmentin [Amoxicil* GI Upset Cymbalta [Duloxetin* Other: See Comments GI upset; poor appetite Effexor Xr [Venlafa* Diarrhea Thinks maybe might be able to tolerate like Celexa after a while Sudafed [Pseudoephe* Intolerance heart racing Tramadol GI Upset Vicodin [Hydrocodon* Itching, Vomiting [place] very off balance; can take codeine Wellbutrin Sr [Bupr* Mental Status Change felt stoned Zoloft [Sertraline * Diarrhea ALPRAZolam (XANAX) 0.5 mg tablet^Take 1 tablet by mouth at bedtime as needed for up to 60 days.^Disp: 28 tablet^Rfl: 0 tiotropium bromide (SPIRIVA RESPIMAT) 2.5 mcg/actuation inhaler^Inhale 2 Puffs as instructed once daily.^Disp: 4 g^Rfl: 11 budesonide-formoterol (SYMBICORT) 160-4.5 mcg/actuation inhaler^Inhale 2 Puffs as instructed twice daily.^Disp: 1 Each^Rfl: 11 cyclobenzaprine HCl (FLEXERIL ORAL)^Take by mouth as needed (muscle spasm).^Disp: ^Rfl: citalopram (CELEXA) 20 mg tablet^Take 1.5 tablets by mouth once daily.^Disp: 135 tablet^Rfl: 3 amLODIPine (NORVASC) 10 mg tablet^Take 1 tablet by mouth once daily.^Disp: 90 tablet^Rfl: 3 apixaban (ELIQUIS) 5 mg tab(s)^Take 1 tablet by mouth twice daily.^Disp: 60 tablet^Rfl: 11 albuterol HFA (PROVENTIL HFA, VENTOLIN HFA) 90 mcg/actuation inhaler^Inhale 2 Puffs as instructed every 6 hours as needed for wheezing/shortness of breath.^Disp: 6.7 g^Rfl: 5 cetirizine (ZYRTEC) 10 mg tablet^Take 1 tablet by mouth once daily.^Disp: 30 tablet^Rfl: 11 montelukast (SINGULAIR) 10 mg tablet^Take 1 tablet by mouth daily at bedtime.^Disp: 90 tablet^Rfl: 3 omeprazole (PRILOSEC) 40 mg capsule^Take 1 capsule by mouth once daily.^Disp: 90 capsule^Rfl: 3 furosemide (LASIX) 20 mg tablet^1 daily as needed to manage swelling of feet and lower legs.^Disp: 30 tablet^Rfl: 0 ipratropium-albuterol (DUONEB) 0.5 mg-3 mg(2.5 mg base)/3 mL nebu^Inhale 3 mL as instructed every 6 hours as needed (wheezing/shortness of breath).^Disp: 120 Vial^Rfl: 5 triamcinolone acetonide (NASACORT AQ) 55 mcg nasal inhaler^Use 2 Sprays in each nostril once daily.^Disp: 1 Inhaler^Rfl: 5 aspirin, enteric coated (ASPIRIN, ENTERIC COATED) 81 mg EC tablet^Take 81 mg by mouth once daily.^Disp: ^Rfl: atorvastatin (LIPITOR) 40 mg tablet^Take 40 mg by mouth once daily.^Disp: ^Rfl: Social History Tobacco Use Smoking status: Former Packs/day: 1.00 Years: 40.00 Pack years: 40.00 Types: Cigarettes Start date: 02/07/1980 Smokeless tobacco: Never Tobacco comments: started age 16 - currently 0-4 cig per day. Quit in the past for 1 year. Vaping Use Vaping Use: Some days Substance Use Topics Alcohol use: Yes Comment: rarely Drug use: No FAMILY HISTORY Problem Relation Age of Onset Heart Mother Hypertension Mother Diabetes Mother COPD Mother Developed before she . She never smoked. other (Macular degeneration) Mother other (Cataracts) Mother Emphysema Father Hypertension Sister Cancer Sister ovarian with mets to lung lining Ovarian cancer Sister Hypertension Sister No Known Problems Maternal Grandmother No Known Problems Maternal Grandfather No Known Problems Paternal Grandmother No Known Problems Paternal Grandfather other (MTHFR) Daughter Bleeding disorders other (MTHFR) Daughter Bleeding disorders PAST SURGICAL HISTORY Procedure Laterality Date LIG/TRNSXJ FLP TUBE ABDL/VAG APPR UNI/BI 1989 Tubal ligation PAST SURGICAL HISTORY OF Cyst drained in right breast x 2 PAST SURGICAL HISTORY OF reconnect ligament in the right side toe TONSILLECTOMY PRIMARY/SECONDARY <AGE 13 AGE 7 Tonsillectomy PMH, Social history, family history and surgical history reviewed and updated in EMR REVIEW OF SYSTEMS: CONSTITUTIONAL: No fevers, chills, nightsweats, unintended weight loss HEENT: Denies nasal congestion/sinus symptoms, allergy problems. EYES: No diplopia or blurry vision. CARDIOVASCULAR: No chest pain, palpitations, orthopnea, PND, edema. PULM: See HPI GI: No dysphagia/odynophagia, problematic reflux, constipation, diarrhea, changes in stool habits, hematochezia, melena. NEURO: No new balance problems, peripheral weakness/paresthesias or numbness of concern. PSY: No concerns regarding depression, anxiety INTEGUMENTARY: No new skin changes or rashes PHYSICAL EXAMINATION: BP 124/78 Pulse 91 Resp 18 Wt 157 lb (71.2kg) SpO2 99% LMP 02/19/2015 General Appearance: Age-appropriate female, NAD Skin: Skin color, texture, turgor normal, no suspicious rashes or lesions. Head: Normocephalic, no masses, lesions, tenderness or abnormalities. Oropharynx: No oral lesions or thrush Neck: No JVD, no masses, no adenopathy Lungs: Not labored, normal to percussion, no wheezes or crackles Heart: Regular rate and rhythm, no murmurs gallops Extremities: No edema or clubbing Assessment/Plan: 1. Severe COPD, GOLD 3 -Severe COPD by pulmonary function test. She will continue on triple inhaler therapy -She should remain tobacco free -Referral for pulmonary rehab -Her severe dyspnea is likely a combination of her COPD and post COVID, however, cannot exclude chronic thromboembolic disease -Check alpha-1 level -Echocardiogram 2. Former cigarette smoker -Recent former smoker with sequelae of COPD -She will remain tobacco free -Continue lung cancer screening. Due in 1 year for low-dose chest CT 3. Lung nodules -Stable nodule 4. History of pulmonary embolism -See #1 -If evidence of pulmonary hypertension on echocardiogram, will order V/Q scan Maria Field MD [facility] documented in this encounter [facility] 02-11-2022 Miscellaneous Notes PDMP website checked and validated. All prescriptions have been APPROPRIATELY filled. No suspicious activity was identified. 02/11/2022 by Morelia Guo APRN.[employer] OPERATOR HELPER Last office visit: 12/14/21 Next appointment scheduled: 08/05/22 Patient phones requesting refills as follows: Requested Prescriptions Pending Prescriptions Disp Refills ALPRAZolam (XANAX) 0.5 mg tablet 28 tablet 0 Sig: Take 1 tablet by mouth at bedtime as needed for up to 60 days. Please review and advise. Maya Choi LPN documented in this encounter [facility] 01-25-2022 Instructions Maryanne Novoa APRN.[facility] - 01/25/2022 3:01 PM EST Images from the original note were not included. Cigarette Logs : Record every single smoked cigarette on a cigarette log (either on their smartphone or with paper and pencil) contiguous to the smoking. Logging your smoked cigarettes in real-time (while smoking) helps quantify consumption accurately and helps you and your act of smoking become more mindful versus automatically, habitually without thought or cognizance. You can't change something if you can't measure the change. We discussed behavioral modification interventions such as changing home environment smoking outside the house only. Avoid smoking the in car while driving. Place cigarettes in hard to reach areas such as in the care trunk, clean out all extra nicola trays We discussed behavioral modification methods in order to unpair certain habits of smoking with specific activities and to help wean down the patient's smoking over time in order to minimize withdrawal effects of reduction in nicotine intake. Patient was instructed to smoke every hour on the hour during waking hours and not pair the cigarette with a normal activity such as coffee or driving as he or she normally would have. Patient was instructed to do this for a week and then cut back to smoking one cigarette every other hour for the second week, then cut back to smoking a cigarette every third hour on the third week, and quit on week 4. I instructed patient when starting this method to not smoke any more cigarettes than they normally would have smoked in a day and if they smoke less than 2 cigarettes per day to set those cigarettes out ahead of time and space them out evenly throughout the day to ensure they aren't increasing their cigarette consumption. Oral Substitutes/Hydration Drinking water is a superb coping technique. Snacking on crunchy, nutrient dense, low calorie foods such as chopped peppers, celery, or carrots can be extremely helpful. Using cinnamon sticks, plastic straws, and sugarless gum/ candy are also excellent oral substitutes. Phone [phone] ([phone]) as additional resource. CT Lung Screen Results The CT scan that you will have done today will show if you have any nodules (small spots) in your lungs that are suspicious for cancer. Around 90% of the patients who have this scan done are found to have at least one nodule. Most nodules are benign (not cancer) and of no harm to you at all. A specialist will make a scientific evaluation about whether or not a nodule is worrisome based on its size and shape. The radiologist who will read your scan will put it into one of four categories: LUNG-RADS Category Description Overall Probability of Malignancy Recommended Follow-Up 1 Negative No nodules and definitely benign (non-cancerous nodules) Essentially 0. 1 Year - Follow-up Low dose CT 2 Benign Appearance or Behavior Nodules with a very low likelihood of becoming cancer due to size or lack of growth Less than 1% 1 Year - Follow-up Low dose CT 3 Probably Benign Probably benign finding, short term follow-up recommended 1 to 2% 6 Months - Follow-up Low dose CT 4 Suspicious Findings for which additional diagnostic testing and/or biopsy is recommended Will be calculated based on nodule characteristics. Dependent on what is seen on the exam. At times, we may see something outside of the lungs on the scan that could be a health concern. Below are some of the most common findings: S Clinically Significant or Potentially Clinically Significant Findings (non lung cancer) Referral or additional imaging/labs depending on result. Approximately 10% of people receive this result. Coronary Artery Calcifications (Moderate or Severe) - Referral to cardiology for further work-up and recommendations. Thyroid Nodule - TSH level and Thyroid Ultrasound dependent on size, referral to endocrinology. Adrenal Nodule - Blood work and referral to endocrinology. Others Lung Cancer Screening Scheduling: [place] [phone], [place] [phone]. And Other locations Billing Questions: or [email or web address] Specialist Providers: (Julee Arias CNP; Maryanne Novoa CNP; Tati Agrawal CNP; Kaylie Wilson CNP; Cassia Rodriguez PA-C; Lizet Stevenson PA-C; Izabel Mojica CNP, Tiny Zaldivar CNP, Adriana Monk CNP & Gretchen Rome PA-C): [phone] documented in this encounter [facility] 01-25-2022 History of Present illness Narrative Images from the original note were not included. LUNG SCREENING VISIT PRIMARY CARE PHYSICIAN: Kashif Bernard MD PULMONARY PROVIDER: Ajay Sifuentes MD Results will be communicated via letter or electronic record if applicable. Visit Delivery: In Person Patient Visit Type: New to Screening Current Exam Type: baseline LDCT Number of Pack Years: 40 Current smoker (=0) Results will be communicated via letter or electronic record. REQUESTER: The referring provider advised the patient to have screening. HISTORY OF PRESENT ILLNESS: Debbie Montes is a 57 year old active smoker who presents for lung screening. Respiratory symptoms include: SOB: Yes with ambulating < 1 mile, with change in movements. 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 Has to take short frequent short breaks between ADLs Chest tightness: Yes occasional Coughing: Yes: With mucus Clear ongoing Hemoptysis: No Wheezing: Yes Fever/Chills: No Recent Respiratory Infection: No, Last tested for COVID 08/2021. Denies hospitalization. Unintentional weight loss: No Appetite is stable. Last 6 Encounter Wt Readings: Date: Wt: 01/25/2022 68.9 kg (152 lb) 01/24/2022 68 kg (150 lb) 01/20/2022 68.5 kg (151 lb) 12/14/2021 69.4 kg (153 lb) 11/29/2021 69 kg (152 lb 3.2 oz) 08/13/2021 69.1 kg (152 lb 6.4 oz) ECOG PERFORMANCE STATUS: 2- Ambulatory and capable of all selfcare; unable to carry out work activities. Up and about > 50% of waking hrs. Modified Medical Research Stebbins Dyspnea Scale (MMRC) On level ground I walk slower than people of the same age because of breathlessness, or have to stop for breath when walking at my own pace 2 Lung Cancer Risk Factors: 1.Tobacco Use: Start Age 16, Quit Age N/A , (Quit in the past for 1 year) . Average packs per day 1, Pack Years 40. Currently smokes 1-2 cigarettes/day. 2. Passive Smoke Exposure: Yes as a child. 3. Personal hx of malignancy: No. 4. Significant exposures (1 year or more of exposure): None. 5. Race: White. 6. Education:Highschool graduate 7. BMI:Body mass index is 26.09 kg/m . 8. COPD: Yes 9. Pneumonia in the past 5 years: Yes 10. Is there a history of lung cancer in a first degree relative? No. 11. Is there a history of lung cancer in a non first degree relative? No 12. Is there a history of any other cancer in a first degree relative? Yes. Sister Ovarian PAST MEDICAL HISTORY Diagnosis Date Allergic rhinitis, cause unspecified 10/23/2006 COPD (chronic obstructive pulmonary disease) ([facility]) PMH - PAST MEDICAL HISTORY OF PULMONARY NODULE Tobacco use disorder Unspecified asthma(493.90) Probably more than 10 years ago, breathing tests, Just a touch of asthma. PAST SURGICAL HISTORY Procedure Laterality Date LIG/TRNSXJ FLP TUBE ABDL/VAG APPR UNI/BI 1989 Tubal ligation PAST SURGICAL HISTORY OF Cyst drained in right breast x 2 PAST SURGICAL HISTORY OF reconnect ligament in the right side toe TONSILLECTOMY PRIMARY/SECONDARY <AGE 13 AGE 7 Tonsillectomy FAMILY HISTORY Problem Relation Age of Onset Heart Mother Hypertension Mother Diabetes Mother COPD Mother Developed before she . She never smoked. other (Macular degeneration) Mother other (Cataracts) Mother Emphysema Father Hypertension Sister Cancer Sister ovarian with mets to lung lining Ovarian cancer Sister Hypertension Sister No Known Problems Maternal Grandmother No Known Problems Maternal Grandfather No Known Problems Paternal Grandmother No Known Problems Paternal Grandfather other (MTHFR) Daughter Bleeding disorders other (MTHFR) Daughter Bleeding disorders cyclobenzaprine HCl (FLEXERIL ORAL)^Take by mouth as needed (muscle spasm).^Disp: ^Rfl: lyuplexhikz-cddugamwi-anomzhje (TRELEGY ELLIPTA) 100-62.5-25 mcg inhalation powder^Inhale 1 Puff as instructed once daily.^Disp: 1 Each^Rfl: 11 citalopram (CELEXA) 20 mg tablet^Take 1.5 tablets by mouth once daily.^Disp: 135 tablet^Rfl: 3 amLODIPine (NORVASC) 10 mg tablet^Take 1 tablet by mouth once daily.^Disp: 90 tablet^Rfl: 3 apixaban (ELIQUIS) 5 mg tab(s)^Take 1 tablet by mouth twice daily.^Disp: 60 tablet^Rfl: 11 ALPRAZolam (XANAX) 0.5 mg tablet^Take 1 tablet by mouth at bedtime as needed for up to 60 days.^Disp: 28 tablet^Rfl: 0 albuterol HFA (PROVENTIL HFA, VENTOLIN HFA) 90 mcg/actuation inhaler^Inhale 2 Puffs as instructed every 6 hours as needed for wheezing/shortness of breath.^Disp: 6.7 g^Rfl: 5 cetirizine (ZYRTEC) 10 mg tablet^Take 1 tablet by mouth once daily.^Disp: 30 tablet^Rfl: 11 montelukast (SINGULAIR) 10 mg tablet^Take 1 tablet by mouth daily at bedtime.^Disp: 90 tablet^Rfl: 3 omeprazole (PRILOSEC) 40 mg capsule^Take 1 capsule by mouth once daily.^Disp: 90 capsule^Rfl: 3 furosemide (LASIX) 20 mg tablet^1 daily as needed to manage swelling of feet and lower legs.^Disp: 30 tablet^Rfl: 0 ipratropium-albuterol (DUONEB) 0.5 mg-3 mg(2.5 mg base)/3 mL nebu^Inhale 3 mL as instructed every 6 hours as needed (wheezing/shortness of breath).^Disp: 120 Vial^Rfl: 5 triamcinolone acetonide (NASACORT AQ) 55 mcg nasal inhaler^Use 2 Sprays in each nostril once daily.^Disp: 1 Inhaler^Rfl: 5 aspirin, enteric coated (ASPIRIN, ENTERIC COATED) 81 mg EC tablet^Take 81 mg by mouth once daily.^Disp: ^Rfl: atorvastatin (LIPITOR) 40 mg tablet^Take 40 mg by mouth once daily.^Disp: ^Rfl: ALLERGIES Allergen Reactions Silvadene [Silver S* Intolerance Tetracycline GI Upset Augmentin [Amoxicil* GI Upset Cymbalta [Duloxetin* Other: See Comments GI upset; poor appetite Effexor Xr [Venlafa* Diarrhea Thinks maybe might be able to tolerate like Celexa after a while Sudafed [Pseudoephe* Intolerance heart racing Tramadol GI Upset Vicodin [Hydrocodon* Itching, Vomiting [place] very off balance; can take codeine Wellbutrin Sr [Bupr* Mental Status Change felt stoned Zoloft [Sertraline * Diarrhea The medications and allergies were reviewed and reconciled for this patient and deemed current. Health Maintenance Immunization History Administered Date(s) Administered Influenza Seasonal Inj Age 3+ 11/25/2018 Influenza Seasonal Inj Quad Age 6 Mo - 64 Yrs 11/21/2016 11/20/2017 02/06/2020 12/14/2021 Influenza Seasonal Inj Quad Age 6 Mo-64 Yrs Pres Free 11/20/2017 Influenza Vaccine, Split-Non Spec 03/06/2010 01/03/2012 Pneumovax 01/09/2017 Tdap (Age 7+) 01/19/2011 07/31/2017 Colonoscopy: 11/03/2017 Mammogram: 09/18/2018 DATA REVIEW I have directly visualized the testing documented: Prior Imaging: Last CT/CTA Chest/Lungs CT CHEST W IVCON PE Exam End: 12/30/2020 12:10 PM (Final result) Narrative: * * *Final Report* * * DATE OF EXAM: Dec 30 2020 12:10PM [facility] 0540 - CT CHEST W IVCON PE / PROCEDURE REASON: multiple diagnoses * * * * Physician Interpretation * * * * EXAMINATION: CHEST CT WITH CONTRAST (PULMONARY EMBOLISM PROTOCOL) CLINICAL HISTORY: Dyspnea and respiratory abnormalities Dyspnea and respiratory abnormalities Technique: Spiral CT acquisition of the chest from the thoracic inlet to the upper abdomen following IV contrast. Axial 1 and 3 mm thick slices plus coronal and sagittal reformatted images. MQ: CTCP_5 Contrast: 100 mL Omnipaque [address] Radiation dose: Integrated Dose-length product (DLP) for this visit = 298 mGy*cm CT Dose Reduction Employed: Automated exposure control(AEC) and iterative recon Comparison: No relevant prior studies available. RESULT: Limitations: None. Evaluation for thromboembolic disease: - Right heart chambers: No thromboembolic disease. - Main pulmonary arteries: Irregularity of the distal right pulmonary artery, without dilation of the artery. - Lobar pulmonary arteries: Irregularly of the right upper lobe lobar pulmonary artery without dilation of the artery. - Segmental pulmonary arteries: Irregularity of the segmental pulmonary artery in the right upper lobe, without dilation of the artery. - Subsegmental pulmonary arteries: No thromboembolic disease. - Additional pulmonary artery findings: The main pulmonary artery is normal in caliber. Lines, tubes, and devices: None. Lung parenchyma and airways: The central airways are patent. A few pulmonary nodules identified. For example, nodules in the right lung measuring up to 3 mm, series 5 images 51, 53, and 60. There are biapical scarring and subpleural opacities, likely inflammatory. A few blebs seen in the right apex. There are triangular opacities in the right middle lobe, inferior right upper lobe and lingula, likely representing atelectasis. The lungs are otherwise clear of consolidations. No masses identified. Pleural space: No pleural effusion or pneumothorax. No pleural thickening. Lower neck, lymph nodes, and mediastinum: The imaged thyroid gland is normal. No supraclavicular lymphadenopathy. There is a 1.2 cm nodular density in the left axilla, series 4 image 50. No mediastinal or hilar adenopathy. Heart, pericardium, and thoracic vessels: The thoracic aorta is normal in caliber. The cardiac chambers are normal in size. No coronary artery atherosclerotic calcifications are noted, although the study is not optimized for coronary assessment. No pericardial effusion or thickening. Bones and soft tissues: No destructive bone lesion. Chest wall is unremarkable. Upper abdomen: No abnormality in the imaged upper abdomen. Nurse Examiner (topogram) images: No additional findings. Impression: IMPRESSION: Irregularity of the distal right pulmonary artery, right upper lobe pulmonary artery and segmental pulmonary artery, without dilation of the arteries. Findings are felt to be representing chronic/subacute pulmonary embolism. URGENT RESULTS Acuity: Urgent Communication: Attempted communication with QUETA Barcenas on 01/29/2021 at 12:35 PM via verbal communication. Patient will be sent to ED for evaluation. Tiny right lung nodules measuring up to 3 mm. Acuity: Incidental Finding: Solid: <6 mm (solitary or multiple) Routing Code: N/A Recommendation: No imaging follow-up is recommended Time Frame: N/A Comments: If there are risk factors for lung malignancy, a follow-up chest CT exam could be obtained in 12 months 1.2 cm left axillary nodule. Please clinically correlate. Proposal Manager: GARY Transcribe Date/Time: Dec 30 2020 12:15P Dictated by : TG RUFF MD This examination was interpreted and the report reviewed and electronically signed by: TG RUFF MD on Dec 30 2020 12:44PM EST Last CT Chest - Impression Only CT CHEST W IVCON PE Exam End: 12/30/2020 12:10 PM (Final result) Impression: IMPRESSION: Irregularity of the distal right pulmonary artery, right upper lobe pulmonary artery and segmental pulmonary artery, without dilation of the arteries. Findings are felt to be representing chronic/subacute pulmonary embolism. URGENT RESULTS Acuity: Urgent Communication: Attempted communication with QUETA Barcenas on ... Last XR Chest - Impression Only XR CHEST 2V FRONTAL/LAT Exam End: 05/21/2021 10:34 AM (Final result) Impression: IMPRESSION: Mild atelectasis in the lingula and right middle lobe. ... Pulmonary Function Testing: SPIROMETRY BASELINE ONLY ([id number]) - ordered on 01/24/22 No textual results for order. PHYSICAL EXAM: BP 111/69 (BP Site: Left Arm, BP Position: Sitting, BP Cuff Size: Regular Adult) Pulse 80 Ht 162.6 cm (5' 4) Wt 68.9 kg (152 lb) LMP 02/19/2015 SpO2 98% BMI 26.09 kg/m General appearance: Well appearing, alert, in no acute distress, well-hydrated, well nourished. Skin: Skin color normal, no suspicious rashes or lesions Lungs: No audible wheezes, spoke in full clear sentences. Neuro: Alert & oriented X 3 ASSESSMENT and RECOMMENDATIONS: 1. Screening for lung cancer: Encounter for screening for lung cancer - ICD9: V76.0, ICD10: Z12.2 (primary diagnosis) Six year risk for lung cancer: 2.5% Source: [place] [email or web address] I have determined that the patient is eligible for a low dose CT based on age, absence of signs or symptoms of lung cancer, and total pack years: Yes. The patient and I engaged in shared decision making, including the use of one or more decision aids, to include benefits, harms, follow-up diagnostic testing, over-diagnosis, false positive rate, and total radiation exposure. The patient understands and feels comfortable with it: Yes. The patient was counseled on the importance of adherence to annual LDCT lung cancer screening, impact of comorbidities and ability or willingness to undergo diagnosis and treatment. The patient understands and feels comfortable with it:Yes. 2. Smoker - ICD9: 305.1, ICD10: F17.200 Nicotine dependence: The patient was counseled on the importance of smoking cessation if current smoker and, if appropriate, offered additional tobacco cessation counseling services - Smoking Cessation Counseling. SMOKING CESSATION COUNSELING Smoking cessation methods including Nicotine Replacement Therapies and Behavior Modification were discussed with the patient and assistance offered. Cigarette Logs : Record every single smoked cigarette on a cigarette log (either on their smartphone or with paper and pencil) contiguous to the smoking. Logging your smoked cigarettes in real-time (while smoking) helps quantify consumption accurately and helps you and your act of smoking become more mindful versus automatically, habitually without thought or cognizance. You can't change something if you can't measure the change. Advised to set a quit date. Discussed NRTs nicotine lozenges/nicotine patch, side effects, dosage and administration. She may consider nicotine lozenges. We discussed behavioral modification interventions such as changing home environment smoking outside the house only. Avoid smoking the in car while driving. Place cigarettes in hard to reach areas such as in the care trunk, clean out all extra nicola trays We discussed behavioral modification methods in order to unpair certain habits of smoking with specific activities and to help wean down the patient's smoking over time in order to minimize withdrawal effects of reduction in nicotine intake. Patient was instructed to smoke every hour on the hour during waking hours and not pair the cigarette with a normal activity such as coffee or driving as he or she normally would have. Patient was instructed to do this for a week and then cut back to smoking one cigarette every other hour for the second week, then cut back to smoking a cigarette every third hour on the third week, and quit on week 4. I instructed patient when starting this method to not smoke any more cigarettes than they normally would have smoked in a day and if they smoke less than 2 cigarettes per day to set those cigarettes out ahead of time and space them out evenly throughout the day to ensure they aren't increasing their cigarette consumption. Oral Substitutes/Hydration Drinking water is a superb coping technique. Snacking on crunchy, nutrient dense, low calorie foods such as chopped peppers, celery, or carrots can be extremely helpful. Using cinnamon sticks, plastic straws, and sugarless gum/ candy are also excellent oral substitutes. Phone [phone] ([phone]) as additional resource. The medical conditions adversely affected by cigarette use include:COPD and Emphysema. The patient is currently not ready to quit. I personally spent 6 minutes in counseling. The time spent in smoking cessation counseling is exclusive of any other counseling during this visit. 3. Lung nodules - ICD9: 793.19, ICD10: R91.8 Multiple RUL nodules < 5 mm , biapical scarring noted on CT Chest 12/2020. Will reassess lung nodule stability on LDCT scan. 4. Axillary adenopathy - ICD9: 785.6, ICD10: R59.0 Left axillary 12 mm lymph node noted on CT 12/2020, will assess stability on LDCT scan. 5. Chronic obstructive pulmonary disease, unspecified COPD type (HCC) - ICD9: 496, ICD10: J44.9 Severe obstruction, moderately decreased DLCO (PFTs 01/24/2022, FEV1 42%, FEV1/FVC 60%, FVC 69%). Reviewed PFTs results Continue daily Trelegy, advised to rinse mouth after each use. Continue Albuterol inhaler as needed with sob, cough, wheezes. Discussed Breathing Exercises -Pursed Lip Breathing -Diaphragmatic Breathing Continue follow up with general pulmonology. I spent a total of 30 minutes on the date of the service which included preparing to see the patient, [id number] patient care, completing clinical documentation, obtaining and/or reviewing separately obtained history, performing a medically appropriate examination, counseling and educating the patient/family/caregiver, ordering medications, tests, or procedures, independently interpreting results (not separately reported), and communicating results to the patient/family/caregiver. Maryanne Novoa APRN.[place] NPI #: January 25, 2022 2:36 PM documented in this encounter [facility] 01-24-2022 History of Present illness Narrative PULM FUNCTION SMARTBLOCK: Provider: QUETA Mason Assisting Tech: NEREIDA Lai Spirometry: 1 DLCO: 1 documented in this encounter [facility] 01-20-2022 History of Present illness Narrative Patient: Debbie Montes PCP: Kashif Bernard MD CC: COPD HPI: Debbie Montes 57 year old female current daily smoker, 30 pack years with PMH significant for pulmonary embolism on eliquis life-long (per Dr. Kwan secondary to hypercoagulable workup), pulmonary nodules, allergic rhinitis, and asthma/COPD. Since the last Pulmonary Clinic visit 05/21/2021, the patient has not required ED care for exacerbation. There has been no hospital admission for exacerbation. Claims to be consistently compliant with prescribed maintenance Rx Symbicort and Singulair. Uses rescue bronchodilator or nebulizer at least 1-2 times daily. Daily cough. Yellow sputum. No hemoptysis. Frequent wheezing. No dyspnea at rest. Exertional dyspnea with minimal exertion. States she is not able to do anything, such as doing dishes or getting in and out of car, without getting short of breath. [place] 1 time per week secondary to becoming so short of breath. No lower extremity edema. Follows with [facility]. States she has had an echo within the past 6-9 months and cardiology told her the dyspnea is not her heart. Patient has not been able to work secondary to shortness of breath. PAST MEDICAL HISTORY Diagnosis Date Allergic rhinitis, cause unspecified 10/23/2006 COPD (chronic obstructive pulmonary disease) (HCC) PMH - PAST MEDICAL HISTORY OF PULMONARY NODULE Tobacco use disorder Unspecified asthma(493.90) Probably more than 10 years ago, breathing tests, Just a touch of asthma. Allergies: Silvadene [Silver S* Intolerance Tetracycline GI Upset Augmentin [Amoxicil* GI Upset Cymbalta [Duloxetin* Other: See Comments Comment:GI upset; poor appetite Effexor Xr [Venlafa* Diarrhea Comment:Thinks maybe might be able to tolerate like Celexa after a while Sudafed [Pseudoephe* Intolerance Comment:heart racing Tramadol GI Upset Vicodin [Hydrocodon* Itching, Vomiting Comment:[place] very off balance; can take codeine Wellbutrin Sr [Bupr* Mental Status Change Comment:felt stoned Zoloft [Sertraline * Diarrhea citalopram (CELEXA) 20 mg tablet^Take 1.5 tablets by mouth once daily.^Disp: 135 tablet^Rfl: 3 amLODIPine (NORVASC) 10 mg tablet^Take 1 tablet by mouth once daily.^Disp: 90 tablet^Rfl: 3 apixaban (ELIQUIS) 5 mg tab(s)^Take 1 tablet by mouth twice daily.^Disp: 60 tablet^Rfl: 11 ALPRAZolam (XANAX) 0.5 mg tablet^Take 1 tablet by mouth at bedtime as needed for up to 60 days.^Disp: 28 tablet^Rfl: 0 albuterol HFA (PROVENTIL HFA, VENTOLIN HFA) 90 mcg/actuation inhaler^Inhale 2 Puffs as instructed every 6 hours as needed for wheezing/shortness of breath.^Disp: 6.7 g^Rfl: 5 cetirizine (ZYRTEC) 10 mg tablet^Take 1 tablet by mouth once daily.^Disp: 30 tablet^Rfl: 11 budesonide-formoterol (SYMBICORT) 160-4.5 mcg/actuation inhaler^Inhale 2 Puffs as instructed twice daily.^Disp: 1 Inhaler^Rfl: 11 montelukast (SINGULAIR) 10 mg tablet^Take 1 tablet by mouth daily at bedtime.^Disp: 90 tablet^Rfl: 3 omeprazole (PRILOSEC) 40 mg capsule^Take 1 capsule by mouth once daily.^Disp: 90 capsule^Rfl: 3 furosemide (LASIX) 20 mg tablet^1 daily as needed to manage swelling of feet and lower legs.^Disp: 30 tablet^Rfl: 0 ipratropium-albuterol (DUONEB) 0.5 mg-3 mg(2.5 mg base)/3 mL nebu^Inhale 3 mL as instructed every 6 hours as needed (wheezing/shortness of breath).^Disp: 120 Vial^Rfl: 5 triamcinolone acetonide (NASACORT AQ) 55 mcg nasal inhaler^Use 2 Sprays in each nostril once daily.^Disp: 1 Inhaler^Rfl: 5 aspirin, enteric coated (ASPIRIN, ENTERIC COATED) 81 mg EC tablet^Take 81 mg by mouth once daily.^Disp: ^Rfl: atorvastatin (LIPITOR) 40 mg tablet^Take 40 mg by mouth once daily.^Disp: ^Rfl: Social History Tobacco Use Smoking status: Every Day Packs/day: 1.00 Years: 40.00 Pack years: 40.00 Types: Cigarettes Start date: 02/07/1980 Smokeless tobacco: Never Tobacco comments: started age 16 - sometimes less than 1/2 pack sometimes more Vaping Use Vaping Use: Never used Substance Use Topics Alcohol use: Yes Comment: rarely Drug use: No Family History Problem Relation Age of Onset Heart Mother Hypertension Mother Diabetes Mother COPD Mother Developed before she . She never smoked. other (Macular degeneration) Mother other (Cataracts) Mother Emphysema Father Hypertension Sister Cancer Sister ovarian with mets to lung lining Ovarian cancer Sister Hypertension Sister No Known Problems Maternal Grandmother No Known Problems Maternal Grandfather No Known Problems Paternal Grandmother No Known Problems Paternal Grandfather other (MTHFR) Daughter Bleeding disorders other (MTHFR) Daughter Bleeding disorders PAST SURGICAL HISTORY Procedure Laterality Date LIG/TRNSXJ FLP TUBE ABDL/VAG APPR UNI/BI 1989 Tubal ligation PAST SURGICAL HISTORY OF Cyst drained in right breast x 2 PAST SURGICAL HISTORY OF reconnect ligament in the right side toe TONSILLECTOMY PRIMARY/SECONDARY <AGE 13 AGE 7 Tonsillectomy I reviewed the past medical history, family history, social history and surgical history with changes noted above and updated in EMR. IMMUNIZATIONS Prevnar - xx Pneumovax - 01/09/2017 Influenza - 12/14/2021 COVID-19 - xx ROS: General: Generally feels short of breath. Appetite good. Eyes, Ears, nose, throat: No post nasal drip, rhinorrhea, purulent nasal discharge, epistaxis. No hoarseness. Vision stable. Cardiac: No angina, edema, orthopnea. Resp: See HPI. GI: No heartburn, dysphagia. Musculoskeletal: neck pain- states it tenses up when she feels short of breath. Neuro: No headache, focal weakness, tremor. Skin: No rash. Otherwise negative. PHYSICAL EXAMINATION: BP 126/78 Pulse 110 Wt 68.5 kg (151 lb) LMP 02/19/2015 SpO2 96% BMI 25.92 kg/m Gen: No acute distress. Cooperative with examination. ENT: Oral hygeine and dentition good. Pharynx clear. No thrush. Resp: No stridor, accessory respiratory muscle use, supra-sternal or intercostal retractions. No wheezes, crackles. CV: Regular rythm. Heart tones normal. Radial pulses normal. Abd: Non distended. MSK: No kyphoscoliosis. Ext: Warm and well perfused. No clubbing, cyanosis, edema. Skin: No rash, ecchymoses. Neuro: Mental status normal. Affect normal. No tremor. DATA: PFT, 11/01/2019 IMPRESSION: The flow volume demonstrates an obstructive pattern. Spirometry indicates severe obstruction. The reduced FVC may be due to obstruction: however, concurrent restriction is not excluded. Lung volumes are suggested for clarification if clinically indicated. Electronically Signed On 11-04-2019 7:59:44 EDT by Chip Payne CXR, 05/21/2021 IMPRESSION: Mild atelectasis in the lingula and right middle lobe. CT chest, 12/30/2020 IMPRESSION: Irregularity of the distal right pulmonary artery, right upper lobe pulmonary artery and segmental pulmonary artery, without dilation of the arteries. Findings are felt to be representing chronic/subacute pulmonary embolism. ASSESSMENT/PLAN: 1. Stage 3 severe COPD by GOLD classification (HCC) - ICD9: 496, ICD10: J44.9 (primary diagnosis) Symptomatically with significant dyspnea with minimal effort. Need to obtain current PFTs. Change to Trelegy ellipta 1 inhalation daily. Rinse mouth after each use to help prevent oral thrush. Duoneb or Albuterol HFA inhaler, 2 inhalations 10-15 minutes prior to activities associated with shortness of breath, and as needed for rescue relief of shortness of breath or wheezing, up to 4 times daily. It is imperative that patient stops smoking. - FLUTICASONE FUR. 100 MCG-UMECLID 62.5 MCG-VILANT 25 MCG INHALAT.POWDER 2. Tobacco use disorder - ICD9: 305.1, ICD10: F17.200 Cessation encouraged. Physiologic and physical aspects of tobacco addiction as well as strategies for quitting were discussed. Counseling was given focusing on the harmful effects of this addiction especially given the patient's medical condition(s) which will be worsened because of the chemicals in tobacco. Patient has decreased to 2-6 cigarettes daily. Patient has an appointment with lung cancer screening next week. 3. Pulmonary embolism, other, unspecified chronicity, unspecified whether acute cor pulmonale present (HCC) - ICD9: 415.19, ICD10: I26.99 History of PE and on life-long Eliquis per Dr. Aquiles Rowe PA-C documented in this encounter [facility] 12-14-2021 History of Present illness Narrative This note was created using [employer]. Subjective Debbie Montes is a 56 year old female. Patient presents with: F/U 6 months SUBJECTIVE: Debbie Montes is a 56 year old year old lady here today for 6 month follow up appointment for review of medical conditions. Overall doing good Breathing getting worse. Positional dyspnea noted. Noted strained neck muscle associated with being SOB. Breathing to relax has helped. Follows with Pulmonology for COPD. Noted dad had COPD Still 0.5 to 1PPD. Still a struggle to quit. Not sure what keeps her smoking. PAST MEDICAL HISTORY Diagnosis Date Allergic rhinitis, cause unspecified 10/23/2006 COPD (chronic obstructive pulmonary disease) ([facility]) PMH - PAST MEDICAL HISTORY OF PULMONARY NODULE Tobacco use disorder Unspecified asthma(493.90) Probably more than 10 years ago, breathing tests, Just a touch of asthma. Current Outpatient Medications Medication Sig ALPRAZolam (XANAX) 0.5 mg tablet Take 1 tablet by mouth at bedtime as needed for up to 60 days. cyclobenzaprine (FLEXERIL) 10 mg tablet Take 1 tablet by mouth three times daily as needed for muscle spasm. albuterol HFA (PROVENTIL HFA, VENTOLIN HFA) 90 mcg/actuation inhaler Inhale 2 Puffs as instructed every 6 hours as needed for wheezing/shortness of breath. varenicline (CHANTIX STARTING MONTH BOX) 0.5 mg (11)- 1 mg (42) tablet Take 0.5 mg by mouth once daily on Days 1 through 3, THEN 0.5 mg twice daily on Days 4 through 7, THEN 1 mg twice daily on Day 8 and thereafter (Patient not taking: Reported on 12/14/2021) varenicline (CHANTIX CONTINUING MONTH BOX) 1 mg tablet Take 1 tablet by mouth twice daily. (Patient not taking: Reported on 12/14/2021) apixaban (ELIQUIS) 5 mg tab(s) Take 1 tablet by mouth twice daily. cetirizine (ZYRTEC) 10 mg tablet Take 1 tablet by mouth once daily. budesonide-formoterol (SYMBICORT) 160-4.5 mcg/actuation inhaler Inhale 2 Puffs as instructed twice daily. montelukast (SINGULAIR) 10 mg tablet Take 1 tablet by mouth daily at bedtime. omeprazole (PRILOSEC) 40 mg capsule Take 1 capsule by mouth once daily. furosemide (LASIX) 20 mg tablet 1 daily as needed to manage swelling of feet and lower legs. ipratropium-albuterol (DUONEB) 0.5 mg-3 mg(2.5 mg base)/3 mL nebu Inhale 3 mL as instructed every 6 hours as needed (wheezing/shortness of breath). amLODIPine (NORVASC) 10 mg tablet Take 1 tablet by mouth once daily. citalopram (CELEXA) 20 mg tablet Take 1.5 tablets by mouth once daily. triamcinolone acetonide (NASACORT AQ) 55 mcg nasal inhaler Use 2 Sprays in each nostril once daily. aspirin, enteric coated (ASPIRIN, ENTERIC COATED) 81 mg EC tablet Take 81 mg by mouth once daily. atorvastatin (LIPITOR) 40 mg tablet Take 40 mg by mouth once daily. Current Facility-Administered Medications Medication Dose Route Frequency perflutren lipid microspheres 1.3 mL in NaCl (PF) 0.9% 10 mL injection (DEFINITY) INTRAVENOUS DIRECTED PRN sodium chloride 0.9 % (flush) 10 mL (BD POSIFLUSH) 10 mL INTRAVENOUS DIRECTED PRN Review of Systems Objective BP 136/82 Pulse 102 Wt 69.4 kg (153 lb) LMP 02/19/2015 SpO2 100% BMI 26.26 kg/m Last 5 Encounter Wt Readings: Date: Wt: 12/14/2021 69.4 kg (153 lb) 11/29/2021 69 kg (152 lb 3.2 oz) 08/13/2021 69.1 kg (152 lb 6.4 oz) 07/21/2021 70.8 kg (156 lb) 07/16/2021 69.4 kg (153 lb) No waist measurement recorded Estimated body mass index is 26.26 kg/m as calculated from the following: Height as of 04/01/21: 162.6 cm (5' 4). Weight as of this encounter: 69.4 kg (153 lb). Last 5 Encounter BP Readings: Date: BP: 12/14/2021 136/82 11/29/2021 132/80 08/13/2021 122/82 07/21/2021 139/74 07/16/2021 116/62 Physical Exam Constitutional: Appearance: Normal appearance. HENT: Head: Normocephalic. Eyes: Conjunctiva/sclera: Conjunctivae normal. Cardiovascular: Rate and Rhythm: Normal rate and regular rhythm. Heart sounds: Normal heart sounds. Pulmonary: Effort: Pulmonary effort is normal. Breath sounds: Normal breath sounds. Skin: General: Skin is warm and dry. Neurological: General: No focal deficit present. Mental Status: She is alert and oriented to person, place, and time. Psychiatric: Mood and Affect: Mood normal. Behavior: Behavior normal. Thought Content: Thought content normal. Judgment: Judgment normal. Assessment and Plan Encounter Diagnosis ICD-10-CM 1. Asthma-chronic obstructive pulmonary disease overlap syndrome (HCC) J44.9 2. Reactive depression F32.9 citalopram (CELEXA) 20 mg tablet 3. Panic disorder without agoraphobia F41.0 citalopram (CELEXA) 20 mg tablet not needing daily med now; rarely to occasionally needs Xanax 4. Encounter for immunization Z23 INFLUENZA VACCINE QUADRIVALENT 6 MO - 64 YRS IM 5. Essential hypertension I10 6. Strain of neck muscle, sequela S16.1XXS associated with [place] from COPD exac 7. Acute pulmonary embolism without acute cor pulmonale, unspecified pulmonary embolism type (HCC) I26.99 apixaban (ELIQUIS) 5 mg tab(s) 8. Tobacco use disorder F17.200 9. Mixed anxiety depressive disorder F41.8 Above issues addressed with patient. Patient involved in shared decision making for management of medical issues. History and medications reviewed. Epic updated as needed Refills and/or prescriptions taken care of and meds adjusted as indicated after reviewed history, exam and labs. Health Maintenance reviewed. Updated record and/or ordered tests as recorded. Encouraged on efforts at healthy diet and regular exercise and adequate sleep. Kashif Bernard MD documented in this encounter [facility] 11-29-2021 History of Present illness Narrative Images from the original note were not included. Subjective HPI HPI Debbie Montes is a 56 year old female who presents today for CC of left neck pain. This started 3 weeks ago. Has tried otc and rx medication without relief. Symptoms are worsened by rom of neck and while sleeping. Hx of back pain. Denies injury, numbness/tingling of bilat upper extremity, visual changes, focal weakness, rash, fever. .Patient presents with: Neck Pain: Pain with L sided swelling x3 weeks, no known cause PAST MEDICAL HISTORY Diagnosis Date Allergic rhinitis, cause unspecified 10/23/2006 COPD (chronic obstructive pulmonary disease) (HCC) PMH - PAST MEDICAL HISTORY OF PULMONARY NODULE Tobacco use disorder Unspecified asthma(493.90) Probably more than 10 years ago, breathing tests, Just a touch of asthma. PAST SURGICAL HISTORY Procedure Laterality Date LIG/TRNSXJ FLP TUBE ABDL/VAG APPR UNI/BI 1989 Tubal ligation PAST SURGICAL HISTORY OF Cyst drained in right breast x 2 PAST SURGICAL HISTORY OF reconnect ligament in the right side toe TONSILLECTOMY PRIMARY/SECONDARY <AGE 13 AGE 7 Tonsillectomy ALLERGIES Silvadene [Silver Sulfadiazine], Tetracycline, Augmentin [Amoxicillin-Pot Clavulanate], Cymbalta [Duloxetine], Effexor Xr [Venlafaxine], Sudafed [Pseudoephedrine], Tramadol, Vicodin [Hydrocodone-Acetaminophen], Wellbutrin Sr [Bupropion], and Zoloft [Sertraline Hcl] MEDICATIONS ALPRAZolam (XANAX) 0.5 mg tablet^Take 1 tablet by mouth at bedtime as needed for up to 60 days.^Disp: 28 tablet^Rfl: 0 predniSONE (DELTASONE) 10 mg tablet^Take 4 tabs daily for 3 days, then 2 tabs daily for 3 days, then 1 tab daily for 3 days with food.^Disp: 21 tablet^Rfl: 0 cyclobenzaprine (FLEXERIL) 10 mg tablet^Take 1 tablet by mouth three times daily as needed for muscle spasm.^Disp: 15 tablet^Rfl: 0 albuterol HFA (PROVENTIL HFA, VENTOLIN HFA) 90 mcg/actuation inhaler^Inhale 2 Puffs as instructed every 6 hours as needed for wheezing/shortness of breath.^Disp: 6.7 g^Rfl: 5 varenicline (CHANTIX STARTING MONTH BOX) 0.5 mg (11)- 1 mg (42) tablet^Take 0.5 mg by mouth once daily on Days 1 through 3, THEN 0.5 mg twice daily on Days 4 through 7, THEN 1 mg twice daily on Day 8 and thereafter^Disp: 53 tablet^Rfl: 0 varenicline (CHANTIX CONTINUING MONTH BOX) 1 mg tablet^Take 1 tablet by mouth twice daily.^Disp: 60 tablet^Rfl: 1 apixaban (ELIQUIS) 5 mg tab(s)^Take 1 tablet by mouth twice daily.^Disp: 60 tablet^Rfl: 5 cetirizine (ZYRTEC) 10 mg tablet^Take 1 tablet by mouth once daily.^Disp: 30 tablet^Rfl: 11 budesonide-formoterol (SYMBICORT) 160-4.5 mcg/actuation inhaler^Inhale 2 Puffs as instructed twice daily.^Disp: 1 Inhaler^Rfl: 11 montelukast (SINGULAIR) 10 mg tablet^Take 1 tablet by mouth daily at bedtime.^Disp: 90 tablet^Rfl: 3 omeprazole (PRILOSEC) 40 mg capsule^Take 1 capsule by mouth once daily.^Disp: 90 capsule^Rfl: 3 furosemide (LASIX) 20 mg tablet^1 daily as needed to manage swelling of feet and lower legs.^Disp: 30 tablet^Rfl: 0 ipratropium-albuterol (DUONEB) 0.5 mg-3 mg(2.5 mg base)/3 mL nebu^Inhale 3 mL as instructed every 6 hours as needed (wheezing/shortness of breath).^Disp: 120 Vial^Rfl: 5 amLODIPine (NORVASC) 10 mg tablet^Take 1 tablet by mouth once daily.^Disp: 90 tablet^Rfl: 3 citalopram (CELEXA) 20 mg tablet^Take 1.5 tablets by mouth once daily.^Disp: 135 tablet^Rfl: 3 triamcinolone acetonide (NASACORT AQ) 55 mcg nasal inhaler^Use 2 Sprays in each nostril once daily.^Disp: 1 Inhaler^Rfl: 5 aspirin, enteric coated (ASPIRIN, ENTERIC COATED) 81 mg EC tablet^Take 81 mg by mouth once daily.^Disp: ^Rfl: atorvastatin (LIPITOR) 40 mg tablet^Take 40 mg by mouth once daily.^Disp: ^Rfl: FAMILY HISTORY Problem Relation Age of Onset Heart Mother Hypertension Mother Diabetes Mother COPD Mother Developed before she . She never smoked. other (Macular degeneration) Mother other (Cataracts) Mother Emphysema Father Hypertension Sister Cancer Sister ovarian with mets to lung lining Ovarian cancer Sister Hypertension Sister No Known Problems Maternal Grandmother No Known Problems Maternal Grandfather No Known Problems Paternal Grandmother No Known Problems Paternal Grandfather other (MTHFR) Daughter Bleeding disorders other (MTHFR) Daughter Bleeding disorders Social History Tobacco Use Smoking status: Every Day Packs/day: 1.00 Years: 40.00 Pack years: 40.00 Types: Cigarettes Start date: 02/07/1980 Smokeless tobacco: Never Tobacco comments: started age 16 - sometimes less than 1/2 pack sometimes more Vaping Use Vaping Use: Never used Substance Use Topics Alcohol use: Yes Comment: rarely Drug use: No ROS Objective Blood pressure 132/80, pulse 105, temperature 36.6 C (97.8 F), resp. rate 18, weight 69 kg (152 lb 3.2 oz), last menstrual period 02/19/2015, SpO2 94 %. Physical Exam Constitutional: General: She is not in acute distress. Appearance: She is not toxic-appearing or diaphoretic. HENT: Head: Normocephalic and atraumatic. Pulmonary: Effort: Pulmonary effort is normal. No accessory muscle usage or respiratory distress. Lymphadenopathy: Cervical: No cervical adenopathy. Right cervical: No superficial cervical adenopathy. Left cervical: No superficial cervical adenopathy. Skin: Neurological: Mental Status: She is alert and oriented to person, place, and time. Deep Tendon Reflexes: Reflex Scores: Bicep reflexes are 2+ on the right side and 2+ on the left side. ASSESSMENT/PLAN: 1. Neck pain - ICD9: 723.1, ICD10: M54.2 Suspect musculoskeletal strain. -use medication as prescribed -follow up if symptoms persist, worsen, change Exercises provide. - PREDNISONE 10 MG TABLET - CYCLOBENZAPRINE 10 MG TABLET Agrees to plan Guzman Portillo APRN.DRILL PRESS OPERATOR HELPER documented in this encounter [facility] 11-29-2021 Miscellaneous Notes The following approved medication requests have been transmitted electronically. Requested Prescriptions Signed Prescriptions Disp Refills ALPRAZolam (XANAX) 0.5 mg tablet 28 tablet 0 Sig: Take 1 tablet by mouth at bedtime as needed for up to 60 days. Authorizing Provider: KASHIF BERNARD MD Last OV: 07/16/21 NexT OV: 12/14/21 documented in this encounter [facility] 09-07-2021 Miscellaneous Notes RX sent Outpatient Medication Detail Disp Refills Start End albuterol HFA (PROVENTIL HFA, VENTOLIN HFA) 90 mcg/actuation inhaler (Discontinued) 6.7 g 5 Sig: Inhale 2 Puffs as instructed every 6 hours as needed for Wheezing/Shortness of Breath. Sent to pharmacy as: albuterol HFA (PROVENTIL HFA, VENTOLIN HFA) 90 mcg/actuation inhaler Patient is requesting this as her emergency inhaler. This can be sent to [facility] in [place]. Please contact patient when this has been sent [phone]. Sarah Ramires Pss documented in this encounter [facility] 08-13-2021 Instructions Nithin Hopper APRN.DRILL PRESS OPERATOR HELPER - 08/13/2021 12:26 PM EDT How to Manage Common Symptoms Associated with COVID for Adults Fever- Fever is a temperature over 100.4 F and can occur when the body is fighting an infection. To help treat a fever: Drink plenty of fluids and stay well hydrated. Eat small amounts of easy to digest food. Rest. Your body needs rest to recover, but getting up and moving around the house frequently is a good idea. You should try to continue doing your normal daily activities (bathing, toileting, grooming, cooking), though you will probably feel tired, and need to rest often. Avoid any heavy activity or exercise, as this will increase your body temperature. Dress in light clothing and stay covered in a light sheet. Keep the room temperature cool. Take a slightly warm (not cold or cool) bath, or apply damp washcloths to the forehead and wrists. Cough- Cough is a common symptom associated with COVID and can be bothersome. To help treat a cough: Stay well hydrated. Try warm water or tea with lemon and/or honey to help soothe the cough. Use a humidifier to add moisture to the air. Try a product with menthol, like a cough drop or a rub for your chest such as Vicks, which can help reduce cough. Try cough drops. Avoid smoking and other strong odors or perfumes. Try breathing exercises to keep your lungs open and clear. Take a big deep breath through your nose and hold for 5 seconds before slowly releasing. Repeat frequently, while you are awake. Congestion- Runny nose or nasal congestion can occur with COVID. Treatment can help relieve symptoms: Try OTC nasal saline spray, or nasal saline rinse to relieve mucus congestion. Nasal strips can help keep nasal passages open, to increase airflow. Elevating your head with an extra pillow in bed can help reduce congestion. Using a humidifier can increase moisture in the air, and make breathing easier. Sore Throat- Another common symptom with COVID, can be managed at home by: Stay well hydrated. Gargle with salt water mix teaspoon salt with 1 cup of warm water and gargle. This helps to loosen mucus in the back of the throat and may reduce discomfort. Try ice chips, popsicles or lozenges to soothe the throat. Nausea/Vomiting/Diarrhea- These are common symptoms, and staying hydrated is most important. If you are nauseous or vomiting, start with small sips of water every 10-15 minutes and increase as tolerated. You can try sucking an ice cube too. If tolerating, you can try pedialyte or Gatorade, or flat sprite or chip-alannah. Start slowly and increase as you are able to. Instead of meals, try smaller, more frequent snacks. Try eating bland foods like crackers, toast, rice, and applesauce. Avoid spicy, greasy or fried foods and dairy containing foods. Even if you aren't feeling hungry due to lack of smell or taste, it is important to try to take in some food when you are able. After drinking and eating, rest in an upright position for up to two hours as needed to help decrease nauseous feelings. Try closing your eyes, avoid moving and watching TV. Avoid strong odors that can make you feel more nauseated. When to seek emergency medical attention Look for emergency warning signs for COVID-19. If having any of these symptoms, seek emergency medical care immediately: Trouble breathing Persistent pain or pressure in the chest New confusion Inability to wake or stay awake Bluish lips or face *This list is not all possible symptoms. Please call your medical provider for any other symptoms that are severe or concerning to you. documented in this encounter [facility] 08-13-2021 History of Present illness Narrative Subjective HPI Nontoxic-appearing female presents urgent care chief complaint COVID-19 concerns. Duration of symptoms 4 days. Associated symptoms body aches fatigue chills headache nasal congestion and cough. States most symptoms have resolved. Fatigue is the most prominent symptom today. States she has been sick for 4 days total. Today is the best day she has felt. Presents today for COVID-19 testing due to sisters medical condition. Patient states that she has been using some OTC medications this has helped. She is not vaccinated. She did have COVID-19 in the past. Risk factors COPD. Denies any fevers productive cough chest pain shortness of breath pleuritic pain hemoptysis nausea vomiting abdominal pain or change in bowel or bladder habits past medical history prescription medication use allergies reviewed. .Patient presents with: Covid19 Concern: possible exposure, fatigue x4 days PAST MEDICAL HISTORY Diagnosis Date Allergic rhinitis, cause unspecified 10/23/2006 COPD (chronic obstructive pulmonary disease) ([facility]) PMH - PAST MEDICAL HISTORY OF PULMONARY NODULE Tobacco use disorder Unspecified asthma(493.90) Probably more than 10 years ago, breathing tests, Just a touch of asthma. PAST SURGICAL HISTORY Procedure Laterality Date LIG/TRNSXJ FLP TUBE ABDL/VAG APPR UNI/BI 1989 Tubal ligation PAST SURGICAL HISTORY OF Cyst drained in right breast x 2 PAST SURGICAL HISTORY OF reconnect ligament in the right side toe TONSILLECTOMY PRIMARY/SECONDARY <AGE 13 AGE 7 Tonsillectomy ALLERGIES Silvadene [Silver Sulfadiazine], Tetracycline, Augmentin [Amoxicillin-Pot Clavulanate], Cymbalta [Duloxetine], Effexor Xr [Venlafaxine], Sudafed [Pseudoephedrine], Tramadol, Vicodin [Hydrocodone-Acetaminophen], Wellbutrin Sr [Bupropion], and Zoloft [Sertraline Hcl] MEDICATIONS ALPRAZolam (XANAX) 0.5 mg tablet Take 1 tablet by mouth at bedtime as needed for up to 60 days. varenicline (CHANTIX STARTING MONTH BOX) 0.5 mg (11)- 1 mg (42) tablet Take 0.5 mg by mouth once daily on Days 1 through 3, THEN 0.5 mg twice daily on Days 4 through 7, THEN 1 mg twice daily on Day 8 and thereafter varenicline (CHANTIX CONTINUING MONTH BOX) 1 mg tablet Take 1 tablet by mouth twice daily. apixaban (ELIQUIS) 5 mg tab(s) Take 1 tablet by mouth twice daily. cetirizine (ZYRTEC) 10 mg tablet Take 1 tablet by mouth once daily. budesonide-formoterol (SYMBICORT) 160-4.5 mcg/actuation inhaler Inhale 2 Puffs as instructed twice daily. montelukast (SINGULAIR) 10 mg tablet Take 1 tablet by mouth daily at bedtime. omeprazole (PRILOSEC) 40 mg capsule Take 1 capsule by mouth once daily. furosemide (LASIX) 20 mg tablet 1 daily as needed to manage swelling of feet and lower legs. ipratropium-albuterol (DUONEB) 0.5 mg-3 mg(2.5 mg base)/3 mL nebu Inhale 3 mL as instructed every 6 hours as needed (wheezing/shortness of breath). amLODIPine (NORVASC) 10 mg tablet Take 1 tablet by mouth once daily. citalopram (CELEXA) 20 mg tablet Take 1.5 tablets by mouth once daily. triamcinolone acetonide (NASACORT AQ) 55 mcg nasal inhaler Use 2 Sprays in each nostril once daily. aspirin, enteric coated (ASPIRIN, ENTERIC COATED) 81 mg EC tablet Take 81 mg by mouth once daily. atorvastatin (LIPITOR) 40 mg tablet Take 40 mg by mouth once daily. FAMILY HISTORY Problem Relation Age of Onset Heart Mother Hypertension Mother Diabetes Mother COPD Mother Developed before she . She never smoked. other (Macular degeneration) Mother other (Cataracts) Mother Emphysema Father Hypertension Sister Cancer Sister ovarian with mets to lung lining Ovarian cancer Sister Hypertension Sister No Known Problems Maternal Grandmother No Known Problems Maternal Grandfather No Known Problems Paternal Grandmother No Known Problems Paternal Grandfather other (MTHFR) Daughter Bleeding disorders other (MTHFR) Daughter Bleeding disorders Social History Tobacco Use Smoking status: Current Every Day Smoker Packs/day: 1.00 Years: 40.00 Pack years: 40.00 Types: Cigarettes Start date: 02/07/1980 Smokeless tobacco: Never Used Tobacco comment: started age 16 - sometimes less than 1/2 pack sometimes more Vaping Use Vaping Use: Never used Substance Use Topics Alcohol use: Yes Comment: rarely Drug use: No BP 122/82 Pulse 113 Temp 37.1 C (98.7 F) Resp 20 Wt 69.1 kg (152 lb 6.4 oz) LMP 02/19/2015 SpO2 97% BMI 26.16 kg/m Hr 95 Review of Systems Constitutional: Positive for chills and malaise/fatigue. Negative for fever. HENT: Positive for congestion. Negative for ear discharge, ear pain, sinus pain and sore throat. Eyes: Negative for blurred vision,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 Thinks maybe might be able to tolerate like Celexa after a while Sudafed [Pseudoephe* Intolerance heart racing Tramadol GI Upset Vicodin [Hydrocodon* Itching, Vomiting [place] very off balance; can take codeine Wellbutrin Sr [Bupr* Mental Status Change felt stoned Zoloft [Sertraline * Diarrhea Medications apixaban (ELIQUIS) 5 mg tab(s) Take 1 tablet by mouth twice daily. cetirizine (ZYRTEC) 10 mg tablet Take 1 tablet by mouth once daily. budesonide-formoterol (SYMBICORT) 160-4.5 mcg/actuation inhaler Inhale 2 Puffs as instructed twice daily. montelukast (SINGULAIR) 10 mg tablet Take 1 tablet by mouth daily at bedtime. ALPRAZolam (XANAX) 0.5 mg tablet Take 1 tablet by mouth at bedtime as needed for up to 60 days. omeprazole (PRILOSEC) 40 mg capsule Take 1 capsule by mouth once daily. furosemide (LASIX) 20 mg tablet 1 daily as needed to manage swelling of feet and lower legs. ipratropium-albuterol (DUONEB) 0.5 mg-3 mg(2.5 mg base)/3 mL nebu Inhale 3 mL as instructed every 6 hours as needed (wheezing/shortness of breath). amLODIPine (NORVASC) 10 mg tablet Take 1 tablet by mouth once daily. citalopram (CELEXA) 20 mg tablet Take 1.5 tablets by mouth once daily. aspirin, enteric coated (ASPIRIN, ENTERIC COATED) 81 mg EC tablet Take 81 mg by mouth once daily. atorvastatin (LIPITOR) 40 mg tablet Take 40 mg by mouth once daily. varenicline (CHANTIX STARTING MONTH BOX) 0.5 mg (11)- 1 mg (42) tablet Take 0.5 mg by mouth once daily on Days 1 through 3, THEN 0.5 mg twice daily on Days 4 through 7, THEN 1 mg twice daily on Day 8 and thereafter varenicline (CHANTIX CONTINUING MONTH BOX) 1 mg tablet Take 1 tablet by mouth twice daily. triamcinolone acetonide (NASACORT AQ) 55 mcg nasal inhaler Use 2 Sprays in each nostril once daily. PAST MEDICAL HISTORY Diagnosis Date Allergic rhinitis, cause unspecified 10/23/2006 COPD (chronic obstructive pulmonary disease) ([facility]) PMH - PAST MEDICAL HISTORY OF PULMONARY NODULE Tobacco use disorder Unspecified asthma(493.90) Probably more than 10 years ago, breathing tests, Just a touch of asthma. Social History Tobacco Use Smoking status: Current Every Day Smoker Packs/day: 1.00 Years: 40.00 Pack years: 40.00 Types: Cigarettes Smokeless tobacco: Never Used Tobacco comment: Pt has cut back to 4 cigarettes daily. Vaping Use Vaping Use: Never used Substance Use Topics Alcohol use: Yes Comment: rarely Drug use: No Component Latest Ref Rng & Units 06/07/2021 06/21/2021 Pro C Fun 76 - 147 % 112 Protein S Clottable 59 - 152 % 74 Antithrombin Assay 84 - 138 % 115 APC Resistance >1.96 Ratio 1.70 (L) Factor VIII:C Assay 50 - 173 % 242 (H) Hex Phase Screen 34.0 - 51.8 seconds 53.7 (H) Hex Phase Confirm 34.2 - 47.9 seconds 50.8 (H) Hex Phase Delta <7.1 delta seconds 2.9 Thrombin Time <18.6 seconds <16.8 APTT Screen 24.0 - 35.1 seconds 37.4 (H) Immediate PTT 1:1 Mix <33.2 seconds 31.9 Incubated PTT 1:1 Mix <35.0 seconds 33.8 PT Sec 9.7 - 13.0 sec 10.6 PT INR 0.9 - 1.3 1.0 APTT 23.0 - 32.4 sec 27.2 Fibrinogen 200 - 400 mg/dL 431 (H) DRVVT Screen 32.0 - 45.7 seconds 34.8 DRVVT Confirm Ratio <1.32 1.07 DRVVT 1:1 Mix 32.0 - 45.7 seconds 36.7 d Dimer <500 ng/mL FEU 350 D Dimer Age-related Cutoff ng/mL FEU 550 Cardiolipin Ab, IgA <12.0 APL <9.0 Cardiolipin Ab, IgG <15.0 GPL <9.0 Cardiolipin Ab, IgM <12.5 MPL 70.5 (H) Homocysteine, Serum <15.1 umol/L 18.6 (H) CRP <0.9 mg/dL 0.8 Interpretation (HYPERCOAG) Performing Pathologist: Katharine Loya MD . . . Factor V Leiden PCR Report Factor V Leiden PCR . . . Platelet Neut Negative Negative Factor IX:C Assay 77 - 173 % 137 Factor XI:C Assay 68 - 175 % 134 Factor XII C Assay 58 - 218 % 115 ASSESSMENT/PLAN: ASSESSMENT/PLAN: 1. On continuous oral anticoagulation - ICD9: V58.61, ICD10: Z79.01 (primary diagnosis) 3. Acute pulmonary embolism without acute cor pulmonale, unspecified pulmonary embolism type (HCC) - ICD9: 415.19, ICD10: I26.99 Minute of continuous oral anticoagulation action indefinitely per cable mock up assembler. She prefers to stick with Adeline for now Discussed routine cancer screening. Provided with written information and discussed at length management of oral anticoagulation. She is cautioned to let us know if needing an invasive procedure or if any bleeding problems. 2. Colon cancer screening - ICD9: V76.51, ICD10: Z12.11 Prefers to complete fecal occult blood test rather than colonoscopy. Order placed. - FECAL OCCULT BLOOD TEST 4. Encounter for screening mammogram for breast cancer - ICD9: V76.12, ICD10: Z12.31 Routine self-exam endorsed - ESA SCREENING 5. Screening for lung cancer - ICD9: V76.0, ICD10: Z12.2 - CONSULT LUNG CANCER SCREENING CLINIC 6. Tobacco use disorder - ICD9: 305.1, ICD10: F17.200 Trying to quit smoking, states rarely smoking now. Interested in trying Chantix to see if this helps. Emy Renee APRN.CNS Medical Decision Making: Problems: Low: Stable chronic illness Data: Unique test(s) ordered: 2 Risk: Moderate: Drug management Medical Decision Making Level: 3 - Low documented in this encounter [facility] 06-15-2021 History of Present illness Narrative This note was created using [employer]. Subjective Debbie Montes is a 56 year old female. Patient presents with: F/U 6 months SUBJECTIVE: Debbie Montes is a 56 year old year old lady here today for 6 month follow up appointment for review of medical conditions. Noted that felt the blood clot go through her heart into lungs. Recalls arms hurting. Was really short of breath when laid down and when tried to move the next day. Could not breath. Dr. Kwan yesterday. Off blood thinners for now while getting testing done. Leg hurting yesterday. Still hurting. Ruled out DVT so far. Prefers to stay on blood thinners for prevention. Swelling noted in legs. Had the past few months pretty regular. Comes and goes Worse when warm. Worse on right side. Side with knee that hurts. PAST MEDICAL HISTORY Diagnosis Date Allergic rhinitis, cause unspecified 10/23/2006 COPD (chronic obstructive pulmonary disease) (HCC) PMH - PAST MEDICAL HISTORY OF PULMONARY NODULE Tobacco use disorder Unspecified asthma(493.90) Probably more than 10 years ago, breathing tests, Just a touch of asthma. PAST SURGICAL HISTORY Procedure Laterality Date LIG/TRNSXJ FLP TUBE ABDL/VAG APPR UNI/BI 1989 Tubal ligation PAST SURGICAL HISTORY OF Cyst drained in right breast x 2 PAST SURGICAL HISTORY OF reconnect ligament in the right side toe TONSILLECTOMY PRIMARY/SECONDARY <AGE 13 AGE 7 Tonsillectomy Current Outpatient Medications Medication Sig ALPRAZolam (XANAX) 0.5 mg tablet Take 1 tablet by mouth at bedtime as needed for up to 60 days. ipratropium-albuterol (DUONEB) 0.5 mg-3 mg(2.5 mg base)/3 mL nebu Inhale 3 mL as instructed every 6 hours as needed (wheezing/shortness of breath). amLODIPine (NORVASC) 10 mg tablet Take 1 tablet by mouth once daily. citalopram (CELEXA) 20 mg tablet Take 1.5 tablets by mouth once daily. montelukast (SINGULAIR) 10 mg tablet Take 1 tablet by mouth daily at bedtime. triamcinolone acetonide (NASACORT AQ) 55 mcg nasal inhaler Use 2 Sprays in each nostril once daily. budesonide-formoterol (SYMBICORT) 160-4.5 mcg/actuation inhaler Inhale 2 Puffs as instructed twice daily. cetirizine (ZYRTEC) 10 mg tablet Take 1 tablet by mouth once daily. omeprazole (PRILOSEC) 20 mg capsule TAKE ONE CAPSULE BY MOUTH ONCE DAILY 30 MINUTES BEFORE BREAKFAST aspirin, enteric coated (ASPIRIN, ENTERIC COATED) 81 mg EC tablet Take 81 mg by mouth once daily. atorvastatin (LIPITOR) 40 mg tablet Take 40 mg by mouth once daily. Current Facility-Administered Medications Medication Dose Route Frequency perflutren lipid microspheres 1.3 mL in NaCl (PF) 0.9% 10 mL injection (DEFINITY) INTRAVENOUS DIRECTED PRN sodium chloride 0.9 % (flush) 10 mL (BD POSIFLUSH) 10 mL INTRAVENOUS DIRECTED PRN Review of Systems Objective BP 122/72 Pulse 82 Wt 70.3 kg (155 lb) LMP 02/19/2015 BMI 26.61 kg/m Physical Exam Constitutional: Appearance: Normal appearance. HENT: Head: Normocephalic. Eyes: Conjunctiva/sclera: Conjunctivae normal. Cardiovascular: Rate and Rhythm: Normal rate and regular rhythm. Heart sounds: Normal heart sounds. Comments: Doughy edema Pulmonary: Effort: Pulmonary effort is normal. Breath sounds: Normal breath sounds. Musculoskeletal: Right lower le+ Edema present. Left lower le+ Edema present. Skin: General: Skin is warm and dry. Neurological: General: No focal deficit present. Mental Status: She is alert and oriented to person, place, and time. Psychiatric: Mood and Affect: Mood normal. Behavior: Behavior normal. Thought Content: Thought content normal. Judgment: Judgment normal. Assessment and Plan ASSESSMENT/PLAN: 1. Seasonal allergies - ICD9: 477.9, ICD10: J30.2 - CETIRIZINE 10 MG TABLET 2. Asthma with chronic obstructive pulmonary disease (COPD) (HCC) - ICD9: 493.20, ICD10: J44.9 - BUDESONIDE-FORMOTEROL HFA 160 MCG-4.5 MCG/ACTUATION AEROSOL INHALER - MONTELUKAST 10 MG TABLET 3. Panic disorder without agoraphobia - ICD9: 300.01, ICD10: F41.0 Stable with control with as needed alprazolam. No signs of diversion or abuse of medication(s); no adverse effects. Continue present management. - ALPRAZOLAM 0.5 MG TABLET Kashif Bernard MD documented in this encounter [facility] 06-14-2021 Miscellaneous Notes Patient returned call and went over results, notes from urgent care provider with understanding. No evidence of blood clot noted on ultrasound. Follow-up with PCP for reevaluation as scheduled. Nithin Hopper APRN.[place] documented in this encounter [facility] 06-14-2021 History of Present illness Narrative Radiology Service Progress Note PATIENT NAME: Debbie Montes DATE OF SERVICE: June 14, 2021 TIME: 9:14 AM PATIENT IDENTITY VERIFICATION COMPLETED USING TWO (2) IDENTIFIERS: Name and Date of confirmed by patient verbally. FALL SCREENING: Has the patient had 2 falls in the last year or 1 fall with injury or currently using an Ambulatory Assistive Device (Walker, Cane, Wheelchair, Crutches, etc.)? No PATIENT GENDER DATA: Female. status: : No status: NO. PATIENT RELEVANT IMPLANT DATA REVIEWED: Not Applicable RADIOLOGY DEPARTMENT: General X-ray: Exam(s) Completed: Lower Extremity X-Ray(s): Knee, AP / Lat / Tunne / Merchant Right and Wt. Bearing PERIPHERAL IV DATA: Not applicable SIGNED BY: RT Abhijit(R) June 14, 2021 9:14 AM documented in this encounter [facility] 06-14-2021 History of Present illness Narrative Subjective HPI Nontoxic-appearing female presents urgent care chief plaint right knee pain. Duration of symptoms 6 hours. Associated symptoms right knee pain and swelling. Patient states she does not remember a distinct injury. States pain is worse with ambulation. Denies any numbness no tingling. Patient states she is worried about blood clots. Did have a PE earlier this year. Recently stopped taking Eliquis. Last dose of Eliquis 1 week ago. Denies any fevers body aches chills cough chest pain shortness of breath pleuritic pain hemoptysis nausea vomiting abdominal pain or change in bowel or bladder habits. Past medical history prescription medication use allergies reviewed. .Patient presents with: Knee Pain: R knee x6 hours, no known injury PAST MEDICAL HISTORY Diagnosis Date Allergic rhinitis, cause unspecified 10/23/2006 COPD (chronic obstructive pulmonary disease) (HCC) PMH - PAST MEDICAL HISTORY OF PULMONARY NODULE Tobacco use disorder Unspecified asthma(493.90) Probably more than 10 years ago, breathing tests, Just a touch of asthma. PAST SURGICAL HISTORY Procedure Laterality Date LIG/TRNSXJ FLP TUBE ABDL/VAG APPR UNI/BI 1989 Tubal ligation PAST SURGICAL HISTORY OF Cyst drained in right breast x 2 PAST SURGICAL HISTORY OF reconnect ligament in the right side toe TONSILLECTOMY PRIMARY/SECONDARY <AGE 13 AGE 7 Tonsillectomy ALLERGIES Silvadene [Silver Sulfadiazine], Tetracycline, Augmentin [Amoxicillin-Pot Clavulanate], Cymbalta [Duloxetine], Effexor Xr [Venlafaxine], Sudafed [Pseudoephedrine], Tramadol, Vicodin [Hydrocodone-Acetaminophen], Wellbutrin Sr [Bupropion], and Zoloft [Sertraline Hcl] MEDICATIONS ALPRAZolam (XANAX) 0.5 mg tablet Take 1 tablet by mouth at bedtime as needed for up to 60 days. ipratropium-albuterol (DUONEB) 0.5 mg-3 mg(2.5 mg base)/3 mL nebu Inhale 3 mL as instructed every 6 hours as needed (wheezing/shortness of breath). amLODIPine (NORVASC) 10 mg tablet Take 1 tablet by mouth once daily. citalopram (CELEXA) 20 mg tablet Take 1.5 tablets by mouth once daily. montelukast (SINGULAIR) 10 mg tablet Take 1 tablet by mouth daily at bedtime. triamcinolone acetonide (NASACORT AQ) 55 mcg nasal inhaler Use 2 Sprays in each nostril once daily. budesonide-formoterol (SYMBICORT) 160-4.5 mcg/actuation inhaler Inhale 2 Puffs as instructed twice daily. cetirizine (ZYRTEC) 10 mg tablet Take 1 tablet by mouth once daily. omeprazole (PRILOSEC) 20 mg capsule TAKE ONE CAPSULE BY MOUTH ONCE DAILY 30 MINUTES BEFORE BREAKFAST aspirin, enteric coated (ASPIRIN, ENTERIC COATED) 81 mg EC tablet Take 81 mg by mouth once daily. atorvastatin (LIPITOR) 40 mg tablet Take 40 mg by mouth once daily. FAMILY HISTORY Problem Relation Age of Onset Heart Mother Hypertension Mother Diabetes Mother COPD Mother Developed before she . She never smoked. other (Macular degeneration) Mother other (Cataracts) Mother Emphysema Father Hypertension Sister Cancer Sister Hypertension Sister No Known Problems Maternal Grandmother No Known Problems Maternal Grandfather No Known Problems Paternal Grandmother No Known Problems Paternal Grandfather other (MTHFR) Daughter Bleeding disorders other (MTHFR) Daughter Bleeding disorders Social History Tobacco Use Smoking status: Current Every Day Smoker Packs/day: 1.00 Years: 40.00 Pack years: 40.00 Types: Cigarettes Smokeless tobacco: Never Used Tobacco comment: Pt has cut back to 4 cigarettes daily. Vaping Use Vaping Use: Never used Substance Use Topics Alcohol use: Yes Comment: rarely Drug use: No BP 130/72 Pulse 113 Temp 37.1 C (98.8 F) Resp 20 Wt 70.4 kg (155 lb 3.2 oz) LMP 02/19/2015 SpO2 98% BMI 26.64 kg/m hr 85 Review of Systems Constitutional: Negative for chills, fever and malaise/fatigue. HENT: Negative for congestion, ear discharge, ear pain, sinus pain and sore throat. Eyes: Negative for blurred vision, pain, discharge and redness. Respiratory: Negative for cough, hemoptysis, sputum production, shortness of breath, wheezing and stridor. Cardiovascular: Negative for chest pain. Gastrointestinal: Negative for abdominal pain, diarrhea, nausea and vomiting. Musculoskeletal: Positive for joint pain. Negative for back pain, falls, myalgias and neck pain. Skin: Negative for itching and rash. Neurological: Negative for dizziness and headaches. Objective Physical Exam Constitutional: General: She is not in acute distress. Appearance: She is not diaphoretic. HENT: Head: Normocephalic. Mouth/Throat: Mouth: Mucous membranes are moist. Pharynx: Oropharynx is clear. No oropharyngeal exudate or posterior oropharyngeal erythema. Eyes: Conjunctiva/sclera: Conjunctivae normal. Pupils: Pupils are equal, round, and reactive to light. Cardiovascular: Rate and Rhythm: Normal rate and regular rhythm. Heart sounds: Normal heart sounds. Pulmonary: Effort: Pulmonary effort is normal. No tachypnea, accessory muscle usage or respiratory distress. Breath sounds: Normal breath sounds. No stridor. Abdominal: Palpations: Abdomen is soft. Tenderness: There is no abdominal tenderness. Musculoskeletal: Cervical back: Normal range of motion and neck supple. No rigidity or tenderness. Right upper leg: No swelling, edema, tenderness or bony tenderness. Right knee: Swelling and effusion present. No deformity, erythema or ecchymosis. Normal range of motion. Tenderness present over the medial joint line and lateral joint line. Right lower leg: No swelling, deformity, lacerations, tenderness or bony tenderness. No edema. Right ankle: Normal. Right foot: Normal range of motion. No swelling, deformity, tenderness or bony tenderness. Comments: No erythema noted. No breaks in skin. No remote redness. Neurovascular intact. Lymphadenopathy: Cervical: No cervical adenopathy. Skin: General: Skin is warm and dry. Neurological: Mental Status: She is alert and oriented to person, place, and time. ASSESSMENT/PLAN: 1. Acute pain of right knee - ICD9: 719.46, ICD10: M25.561 - XR KNEE GENERAL 4V AP BOTH/PA BOTH/LAT/MERC RIGHT - US DVT LOWER RT Impression: 1. No acute fracture or dislocation. IMPRESSION: Negative study for proximal DVT in the right lower extremity. Negative study for calf DVT in the right lower extremity. Negative study for superficial thrombophlebitis in the imaged segments of the right lower extremity. No evidence of DVT on ultrasound. X-ray negative. Wells PE score 1.5. Will follow-up with PCP as scheduled for tomorrow. Patient was educated on supportive therapies.. Patient was instructed to immediately proceed to emergency room for any new, worsening, or symptoms lasting longer than anticipated. The patient's clinical presentation is otherwise unremarkable at this time. Based on exam and clinical finding, the patient is stable for discharge. Plan of care was discussed with patient. Patient verbalizes understanding and agrees to plan of care. This note was generated using [employer] software. It may contain errors in wording, punctuation, or spelling. Nithin Hopper APRN.[employer]RILL PRESS OPERATOR HELPER documented in this encounter [facility] 06-07-2021 Miscellaneous Notes Completed. Pt notified of normal D-Dimer and to stop eliquis. Will have labs checked in 2 weeks. Please make lab apt for 06/21/21 0730. Pt aware. Terri Benson LPN Please call patient that her D-dimer is normal. She should stop her Eliquis and get hypercoagulable lab in 2 weeks. Elizabeth Kwan MD documented in this encounter [facility] 06-07-2021 History of Present illness Narrative PATIENT NAME: Debbie Montes. CLINIC NO: [id number]. ATTENDING PHYSICIAN: Elizabeth Kwan MD. DATE OF SERVICE:06/07/2021 DIAGNOSIS: Acute pulmonary embolism, and family history of thrombophilia HPI: 56-year-old lady who has history of anxiety disorder, tobacco use ( 35+ pack years cigarette smoking) asthma COPD who presented with 2 weeks history of progressive shortness of breath and chest pain. She denied hemoptysis, fever, chills, or recent infection. She has no calf swelling or tenderness. She states that she has a very stressful job, and recent exposure to Covid at work. She had an elevated D-dimer and she was sent to emergency room for further evaluation. Her cardiac enzymes and troponin was negative, and her Covid 19 PCR test was negative as well. She has appointment with cardiology tomorrow. She has a family history of thromboembolism. Two daughters have blood clots and they are on warfarin. Both daughter was tested positive for prothrombin gene mutation and a MFTHR mutation. Her last mammogram was 2 years ago, but she has noted no swelling or pain in her breasts. She denies change in bowel habit, rectal bleeding or melena. She had not had colonoscopy screening. She denied unexplained weight loss or change in her appetite. Interim history: She has been feeling well. She denies chest pain or shortness of breath. She has a family history of ovarian cancer and thrombophilia. All medications & allergies updated and reviewed by me. REVIEW OF SYSTEMS: CONSTITUTIONAL: No fevers, chills, nightsweats, unintended weight loss HEENT: Denies frequent or severe heaches, nasal congestion/sinus symptoms, problematic allergy problems. EYES: No diplopia or blurry vision. CARDIOVASCULAR: No chest pain (now), dyspnea, palpitations, orthopnea, PND, ankle edema. PULM: No dyspnea, +cough of smoking and COPD. GI: No dysphagia/odynophagia, problematic reflux, constipation, diarrhea, changes in stool habits, hematochezia, melena. : No new urinary complaints, including dysuria, gross hematuria or pyuria. NEURO: No new balance problems, peripheral weakness/paresthesias or numbness of concern. MUSC-SKEL: No new joint pain, swelling, or erythema. PSY: No concerns regarding depression, anxiety or panic. INTEGUMENTARY: No new skin changes (rash, new or changing mole, new growth) PHYSICAL EXAMINATION: 56-year-old female in no acute distress BP 127/61 Pulse 84 Temp (Src) 98.3 (Temporal) Wt 155 lb 8 oz (70.5kg) SpO2 98% LMP 02/19/2015 HEENT: Head is normocephalic, atraumatic. Sclerae white, conjunctivae pink. PEERL. EOMs are intact. Oropharynx is benign. LYMPHATICS: There is no palpable adenopathy in the neck, supraclavicular region, axillae, or groin. LUNGS: Lungs are clear to percussion and auscultation. No wheezing HEART: Regular rate and rhythm without murmurs, gallops, or rubs. ABDOMEN: Soft and nontender without organomegaly. No masses can be palpated. EXTREMITIES: Are without edema. No calf swelling or tenderness. NEUROLOGIC: Exam is physiologic LABORATORY DATA: Component Latest Ref Rng & Units 06/07/2021 WBC 3.70 - 11.00 k/uL 9.76 RBC 3.90 - 5.20 m/uL 4.50 Hemoglobin 11.5 - 15.5 g/dL 13.2 Hematocrit 36.0 - 46.0 % 40.4 MCV 80.0 - 100.0 fL 89.8 MCH 26.0 - 34.0 pg 29.3 MCHC 30.5 - 36.0 g/dL 32.7 RDW-CV 11.5 - 15.0 % 14.5 Platelet Count 150 - 400 k/uL 383 MPV 9.0 - 12.7 fL 9.0 Neut% % 58.0 Abs Neut (ANC) 1.45 - 7.50 k/uL 5.65 Lymph% % 34.5 Abs Lymph 1.00 - 4.00 k/uL 3.37 Merrick% % 6.1 Abs Merrick <0.87 k/uL 0.60 Eosin% % 0.8 Abs Eosin <0.46 k/uL 0.08 Baso% % 0.3 Abs Baso <0.11 k/uL 0.03 Immature Gran % % 0.3 IMMATURE GRANS (ABS) <0.10 k/uL 0.03 NRBC /100 WBC 0.0 Absolute nRBC <0.01 k/uL <0.01 DTYPE Auto Component Latest Ref Rng & Units 06/07/2021 d Dimer <500 ng/mL FEU 350 D Dimer Age-related Cutoff ng/mL FEU 550 Component Latest Ref Rng & Units 06/07/2021 Protein, Total 6.3 - 8.0 g/dL 7.6 Albumin 3.9 - 4.9 g/dL 4.4 Calcium 8.5 - 10.2 mg/dL 9.2 Bilirubin, Total 0.2 - 1.3 mg/dL 0.2 Alkaline Phosphatase 34 - 123 U/L 189 (H) AST 13 - 35 U/L 15 ALT 7 - 38 U/L 12 Glucose 74 - 99 mg/dL 93 BUN 7 - 21 mg/dL 8 Creatinine 0.58 - 0.96 mg/dL 0.70 Sodium 136 - 144 mmol/L 135 (L) Potassium 3.7 - 5.1 mmol/L 3.5 (L) Chloride 97 - 105 mmol/L 98 CO2 22 - 30 mmol/L 26 Anion Gap 9 - 18 mmol/L 11 eGFR >=60 mL/min/1.73m 102 d Dimer <500 ng/mL FEU 350 D Dimer Age-related Cutoff ng/mL FEU 550 ASSESSMENT: This is a 56-year-old lady with history of asthma/COPD and tobacco use presented with pulmonary embolism (subacute/chronic). She also has family history of prothrombin gene mutation & MFTHR mutation. -PE resolved, D-dimer is normal and asymptomatic after 6 months of anticoagulation therapy. PLAN: -stop apixaban. -schedule colonoscopy and STEAM TENDER for pelvic exam; because of family history of ovarian cancer. -check hypercoagulation panel in 2 weeks for further recommendations. -follow up with PCP for smoking cessation. Portions of this documentation were copied and pasted from previous office visit notes in order to provide a cohesive continuity of the history. The note has been reviewed and edited and updated as necessary. Elizabeth Kwan MD Cc: Dr. Adele Bernard documented in this encounter [facility] 05-21-2021 History of Present illness Narrative [facility], 05/21/2021: Name: Debbie Montes : 1965 The patient is here today by himself. HPI: Debbie Montes is a 56 yo female with pmh significant for pulmonary embolism on Eliquis, asthma, pulmonary nodules, allergic rhinitis, and COPD. Current daily smoker. 30 pack years. The patient is here for an acute visit secondary to cough x 1 week. I feel like I did when I had pneumonia. Since the last Pulmonary Clinic visit 04/01/2021, the patient has not required ED care for exacerbation. There has been no hospital admission for exacerbation. Claims to be consistently compliant with prescribed maintenance Rx Symbicort 2 inhalations twice daily. Increased nebulized treatments with some relief. Increased cough for the past week. Yellow, thick sputum. No hemoptysis. Wheezing, especially when laying down. No dyspnea at rest. Exertional dyspnea continues to be an issue with minimal exertion. Yesterday had fevers and chills. Mild body aches. Denies headaches, loss of smell or taste. PMH: Updated with patient today. FAMH: Updated with patient today. SOCH: Updated with patient today. IMMUNIZATIONS Prevnar 13 - xx Pneumovax 01/09/2017 Influenza - xx COVID-19 - xx ROS: See HPI. Allergies were reviewed and updated, and medications were reconciled with the patient. PHYSICAL EXAMINATION: BP (P) 110/68 Pulse (P) 68 Resp (P) 19 Wt (P) 68.9 kg (152 lb) LMP 02/19/2015 SpO2 (P) 98% BMI (P) 26.09 kg/m Gen: No acute distress. Cooperative with examination. ENT: Oral hygeine and dentition good. Pharynx clear. No halitosis. No sign of oral thrush. Resp: No stridor, accessory respiratory muscle use, supra-sternal or intercostal retractions. No wheezes, crackles. CV: Regular rythm. Heart tones normal. Radial pulses normal. Abd: Non distended. MSK: No kyphoscoliosis. Ext: Warm and well perfused. No clubbing, cyanosis, edema. Skin: No rash, ecchymoses. Neuro: Mental status normal. Affect normal. No tremor. DATA REVIEW: Reviewed previous PFT 11/01/2019. ASSESSMENT/PLAN: 1. COPD with exacerbation (HCC) - ICD9: 491.21, ICD10: J44.1 (primary diagnosis) Levaquin 1 tablet daily for 7 days. Advised patient to not take with Celexa. Discussed potential side effects, including tendon rupture. Patient to stop immediately if she experiences tendon pain. Prednisone 40 mg for 5 days. CXR today. Further recommendations to follow. Continue Symbicort 2 inhalations twice daily. Rinse mouth after each use to help prevent oral thrush. Albuterol via nebulizer or HFA inhaler, 2 inhalations 10 15 minutes prior to activities associated with shortness of breath, and as needed for rescue relief of shortness of breath or wheezing, up to 4 times daily. - LEVOFLOXACIN 750 MG TABLET - PREDNISONE 20 MG TABLET - XR CHEST 2V FRONTAL/LAT 2. Cough - ICD9: 786.2, ICD10: R05.9 - XR CHEST 2V FRONTAL/LAT 3. Tobacco use disorder - ICD9: 305.1, ICD10: F17.200 - Cessation encouraged. - Physiologic and physical aspects of tobacco addiction as well as strategies for quitting were discussed. - Counseling was given focusing on the harmful effects of this addiction especially given the patient's medical condition(s) which will be worsened because of the chemicals in tobacco. 4. Acute pulmonary embolism without acute cor pulmonale, unspecified pulmonary embolism type (HCC) - ICD9: 415.19, ICD10: I26.[address] Kwan I addressed the questions of the patient, and she expressed understanding and acceptance of my answers. Sayra Rowe PA-C documented in this encounter [facility] 02-12-2020 History of Present illness Narrative Radiology Service Progress Note PATIENT NAME: Debbie Montes DATE OF SERVICE: February 12, 2020 TIME: 2:50 PM PATIENT IDENTITY VERIFICATION COMPLETED USING TWO (2) IDENTIFIERS: Name and Date of confirmed by patient verbally. FALL SCREENING: Has the patient had 2 falls in the last year or 1 fall with injury or currently using an Ambulatory Assistive Device (Walker, Cane, Wheelchair, Crutches, etc.)? No PATIENT GENDER DATA: Female. status: : No status: NO. PATIENT RELEVANT IMPLANT DATA REVIEWED: Not Applicable RADIOLOGY DEPARTMENT: General X-ray: Exam(s) Completed: Chest X-Ray PERIPHERAL IV DATA: Not applicable SIGNED BY: RT Hanny February 12, 2020 2:50 PM documented in this encounter [facility] Evaluation note Diagnosis COPD with exacerbation (HCC)- Primary Obstructive chronic bronchitis with exacerbation Cough Tobacco use disorder Acute pulmonary embolism without acute cor pulmonale, unspecified pulmonary embolism type (HCC) [facility] Diagnosis Tobacco use disorder- Primary Acute pulmonary embolism without acute cor pulmonale, unspecified pulmonary embolism type (HCC) Family history of thrombophlebitis Family history of other cardiovascular diseases [facility] Diagnosis Acute pain of right knee- Primary [facility] Diagnosis Acute pain of right knee [facility] Diagnosis On continuous oral anticoagulation- Primary Long-term (current) use of anticoagulants Colon cancer screening Special screening for malignant neoplasms, colon Acute pulmonary embolism without acute cor pulmonale, unspecified pulmonary embolism type (HCC) Encounter for screening mammogram for breast cancer Screening for lung cancer Tobacco use disorder [facility] Diagnosis Panic disorder without agoraphobia [facility] Diagnosis Onset Date Resolution Status Dyspnea on exertion acute H/O MTHFR mutation acute Atherosclerotic heart diseas e of [place] coronary artery without angina pectoris chronic Mixed hyperlipidemia chronic Takotsubo syndrome [facility] Work Phone: Evaluation note* Diagnosis Lung nodules- Primary Other nonspecific abnormal finding of lung field Screening for lung cancer Smoker Tobacco use disorder [facility] Diagnosis Seasonal allergies Allergic rhinitis, cause unspecified Asthma with chronic obstructive pulmonary disease (COPD) (HCC) Chronic obstructive asthma, unspecified Panic disorder without agoraphobia [facility] Diagnosis Suspected COVID-19 virus infection- Primary [facility] Diagnosis Chronic obstructive pulmonary disease, unspecified COPD type (HCC) [facility] Diagnosis Neck pain- Primary Cervicalgia [facility] Diagnosis Asthma-chronic obstructive pulmonary disease overlap syndrome (HCC)- Primary Reactive depression Dysthymic disorder Panic disorder without agoraphobia Encounter for immunization Need for other specified prophylactic vaccination against single bacterial disease Essential hypertension Unspecified essential hypertension Strain of neck muscle, sequela Acute pulmonary embolism without acute cor pulmonale, unspecified pulmonary embolism type (HCC) Tobacco use disorder Mixed anxiety depressive disorder Dysthymic disorder documented in this encounter [facility] note* Diagnosis Stage 3 severe COPD by GOLD classification ([facility])- Primary Tobacco use disorder Pulmonary embolism, other, unspecified chronicity, unspecified whether acute cor pulmonale present ([facility]) documented in this encounter [facility] note* Diagnosis Stage 3 severe COPD by GOLD classification ([facility]) Cigarette smoker Tobacco use disorder documented in this encounter [facility] note* Diagnosis Encounter for screening for lung cancer- Primary Smoker Tobacco use disorder Lung nodules Other nonspecific abnormal finding of lung field Axillary adenopathy Enlargement of lymph nodes Chronic obstructive pulmonary disease, unspecified COPD type ([facility]) documented in this encounter [facility] note* Diagnosis Panic disorder without agoraphobia documented in this encounter [facility] note* Diagnosis Stage 3 severe COPD by GOLD classification ([facility])- Primary Former cigarette smoker Personal history of tobacco use, presenting hazards to health Lung nodules Other nonspecific abnormal finding of lung field History of pulmonary embolism Personal history of pulmonary embolism documented in this encounter [facility] noteNo assessment information availableWLou[facility] Work [facility]* Diagnosis Chronic obstructive pulmonary disease, unspecified COPD type ([facility]) documented in this encounter [facility] note* Diagnosis Panic disorder without agoraphobia documented in this encounter [facility] note* Diagnosis Stage 3 severe COPD by GOLD classification ([facility])- Primary Former cigarette smoker Personal history of tobacco use, presenting hazards to health Lung nodules Other nonspecific abnormal finding of lung field History of pulmonary embolism Personal history of pulmonary embolism documented in this encounter [facility] note* Diagnosis Essential hypertension- Primary Unspecified essential hypertension Mixed anxiety depressive disorder Dysthymic disorder Elevated hemoglobin A1c Other abnormal blood chemistry Asthma with chronic obstructive pulmonary disease (COPD) ([facility]) Chronic obstructive asthma, unspecified Stage 3 severe COPD by GOLD classification ([facility]) Vitamin D deficiency Unspecified vitamin D deficiency Neck pain Cervicalgia Colon cancer screening Special screening for malignant neoplasms, colon Encounter for long-term current use of medication On continuous oral anticoagulation Long-term (current) use of anticoagulants documented in this encounter [facility] note* Diagnosis Urinary frequency- Primary documented in this encounter [facility] note* Diagnosis Urinary frequency- Primary documented in this encounter [facility] note* Diagnosis Asthma with chronic obstructive pulmonary disease (COPD) Chronic obstructive asthma, unspecified documented in this encounter [facility] note* Diagnosis Acute non-recurrent sinusitis, unspecified location- Primary documented in this encounter [facility] note* Diagnosis Encounter for screening mammogram for breast cancer documented in this encounter [facility] note* Diagnosis Sleep disturbance Sleep disturbance, unspecified documented in this encounter [facility] note* Diagnosis Sleep disturbance- Primary Sleep disturbance, unspecified Folliculitis Other specified disease of hair and hair follicles Vitamin D deficiency Unspecified vitamin D deficiency Essential hypertension Unspecified essential hypertension Reactive depression Dysthymic disorder Panic disorder without agoraphobia Hypercholesterolemia Pure hypercholesterolemia Elevated hemoglobin A1c Other abnormal blood chemistry Elevated alkaline phosphatase level Other nonspecific abnormal serum enzyme levels Encounter for long-term current use of medication documented in this encounter [facility] note* Diagnosis Stage 3 severe COPD by GOLD classification ([facility]) documented in this encounter [facility] note* Diagnosis Acute pain of right knee [facility] Diagnosis Sleep disturbance Sleep disturbance, unspecified documented in this encounter [facility] note* Diagnosis Stage 3 severe COPD by GOLD classification ([facility])- Primary Former cigarette smoker Personal history of tobacco use, presenting hazards to health History of pulmonary embolism Personal history of pulmonary embolism Lung nodules Other nonspecific abnormal finding of lung field documented in this encounter [facility] note* Diagnosis Asthma with chronic obstructive pulmonary disease (COPD) (HCC) Chronic obstructive asthma, unspecified documented in this encounter [facility] note* Diagnosis Influenza-like illness- Primary Influenza with other respiratory manifestations documented in this encounter [facility] note* Diagnosis Essential hypertension- Primary Unspecified essential hypertension Sinus congestion Other diseases of nasal cavity and sinuses Elevated alkaline phosphatase level Other nonspecific abnormal serum enzyme levels Seasonal allergies Allergic rhinitis, cause unspecified Vitamin D deficiency Unspecified vitamin D deficiency Stage 3 severe COPD by GOLD classification ([facility]) Hypercholesterolemia Pure hypercholesterolemia Elevated hemoglobin A1c Other abnormal blood chemistry Nasal congestion Other diseases of nasal cavity and sinuses History of pulmonary embolism Personal history of pulmonary embolism Post-nasal drainage Unspecified sinusitis (chronic) Gastro-esophageal reflux disease without esophagitis Esophageal reflux Encounter for immunization Need for other specified prophylactic vaccination against single bacterial disease Encounter for long-term current use of medication 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 Long-term (current) use of anticoagulants [facility] Diagnosis Chronic obstructive pulmonary disease, unspecified COPD type (HCC) [facility] Diagnosis Panic disorder without agoraphobia [facility] Diagnosis Reactive depression Dysthymic disorder Panic disorder without agoraphobia [facility] Diagnosis Stage 3 severe COPD by GOLD classification ([facility]) [facility]* Diagnosis Stage 3 severe COPD by [facility]OLD classification ([facility]) [facility] Diagnosis Stage 3 severe COPD by GOLD classification ([facility])- Primary Former cigarette smoker Personal history of tobacco use, presenting hazards to health Lung nodules Other nonspecific abnormal finding of lung field [facility] Diagnosis Encounter for screening for lung cancer- Primary Former cigarette smoker Personal history of tobacco use, presenting hazards to health [facility] Diagnosis Encounter for screening for lung cancer Former cigarette smoker Personal history of tobacco use, presenting hazards to health [facility] Diagnosis Lung nodules- Primary Other nonspecific abnormal finding of lung field Encounter for screening for lung cancer Former cigarette smoker Personal history of tobacco use, presenting hazards to health [facility] Diagnosis Sleep disturbance Sleep disturbance, unspecified [facility] Diagnosis Elevated alkaline phosphatase level Other nonspecific abnormal serum enzyme levels [facility] Diagnosis Chronic obstructive pulmonary disease, unspecified COPD type (HCC) [facility] Diagnosis Chronic left SI joint pain- Primary Disorders of sacrum Acute dysfunction of left eustachian tube Asthma-chronic obstructive pulmonary disease overlap syndrome (HCC) Elevated alkaline phosphatase level Other nonspecific abnormal serum enzyme levels Essential (primary) hypertension Unspecified essential hypertension Coronary artery disease involving [place] coronary artery of [place] heart without angina pectoris Encounter for screening mammogram for breast cancer Bilateral leg edema Edema Elevated alkaline phosphatase level Other nonspecific abnormal serum enzyme levels [facility] Diagnosis Encounter for long-term current use of medication documented in this encounter [facility] for referral (narrative)* Diagnostic Procedure Only (Urgent) - Closed Specialty Diagnoses / Procedures Referred By Contac t Referred To Contact US IMAGING Diagnoses Acute pain of right knee Procedures US DVT LOWER RT DUP-SCAN XTR VEINS UNILATERAL/LIMITED STUDY Nithin Hopper APRN.DRILL PRESS OPERATOR HELPER [address] [place] [address] Us Imaging Referral ID Status Reason Start Date Expiration Date V isits Requested Visits Authorized [id number] Closed Auto-Generate d Referral 06/14/2021 07/14/2022 1 1 * Diagnostic Procedure Only (Urgent) - Closed Specialty Diagnoses / Procedures Referred By Contac t Referred To Contact XR IMAGING Diagnoses Acute pain of right knee Procedures XR KNEE GENERAL 4V AP BOTH/PA BOTH/LAT/MERC RIGHT RADIOLOGIC EXAM KNEE COMPLETE 4/MORE VIEWS Nithin Hopper APRN.DRILL PRESS OPERATOR HELPER [address] [place] [address] Xr Imaging Referral ID Status Reason Start Date Expiration Date V isits Requested Visits Authorized [id number] Closed Auto-Generate d Referral 06/14/2021 07/14/2022 1 1 [facility] for referral (narrative)* Diagnostic Procedure Only (Urgent) - Closed Specialty Diagnoses / Procedures Referred By Contac t Referred To Contact US IMAGING Diagnoses Acute pain of right knee Procedures US DVT LOWER RT DUP-SCAN XTR VEINS UNILATERAL/LIMITED STUDY Nithin Hopper APRN.DRILL PRESS OPERATOR HELPER [address] [place] [address] Us Imaging Referral ID Status Reason Start Date Expiration Date V isits Requested Visits Authorized [id number] Closed Auto-Generate d Referral 06/14/2021 07/14/2022 1 1 [facility] for referral (narrative)* Outpatient Procedure (Routine) - Pending Review Specialty Diagnoses / Procedures Referred By Contac t Referred To Contact [facility] Diagnoses Stage 3 severe COPD by GOLD classification (HCC) Procedures ECHO ECHO TTHRC R-T 2D W/WOM-MODE COMPL SPEC&COLR Maria Garibay MD [address] [place] [address] [facility] [address] [place] [address] Referral ID Status Reason Start Date Expiration Date Visits Requested Visits Authorized [id number] Pending Review Auto-Generat ed Referral 04/14/2022 04/14/2023 1 1 [facility] for referral (narrative)* Diagnostic Procedure Only (Routine) - Pending Review Specialty Diagnoses / Procedures Referred By Contac t Referred To Contact BR IMAGING Diagnoses Encounter for screening mammogram for breast cancer Procedures ESA SCREENING SCREENING MAMMOGRAPHY BI 2-VIEW BREAST INC CAD Kashif Bernard MD [address] [place] [address] [facility] [address] [place] [address] Referral ID Status Reason Start Date Expiration Date Visits Requested Visits Authorized [id number] Pending Review Auto-Generat ed Referral 06/28/2023 07/27/2024 1 1 [facility] for referral (narrative)* Diagnostic Procedure Only (Urgent) - Closed Specialty Diagnoses / Procedures Referred By Contac t Referred To Contact XR IMAGING Diagnoses Acute pain of right knee Procedures XR KNEE GENERAL 4V AP BOTH/PA BOTH/LAT/MERC RIGHT RADIOLOGIC EXAM KNEE COMPLETE 4/MORE VIEWS Nithin Hopper APRN.DRILL PRESS OPERATOR HELPER [address] [place] [address] [place] [address] Referral ID Status Reason Start Date Expiration Date V isits Requested Visits Authorized [id number] Closed Auto-Generate d Referral 06/14/2021 07/14/2022 1 1 [facility] for referral (narrative)* Outpatient Procedure (Routine) - Authorized Specialty Diagnoses / Procedures Referred By Contac t Referred To Contact [facility] Diagnoses Stage 3 severe COPD by GOLD classification ([facility]) Procedures LUNG DIFFUSION CAPACITY (DLCO) DIFFUSING CAPACITY Marisol Amanda APRN.CNP [address] [place] [id number] [facility] [address] [place] [address] Referral ID Status Reason Start Date Expiration Date Visits Requested Visits Authorized [id number] Authorized Auto-Generat ed Referral 4 01/03/2025 1 1 * Outpatient Procedure (Routine) - Authorized Specialty Diagnoses / Procedures Referred By Contac t Referred To Contact [facility] Diagnoses Stage 3 severe COPD by GOLD classification ([facility]) Procedures SPIROMETRY WITH DILATOR IF OBSTRUCTED BRNCDILAT RSPSE SPMTRY PRE&POST-BRNCDILAT ADMN Marisol Amanda APRN.DRILL PRESS OPERATOR HELPER [address] [place] [id number] [facility] [address] [place] [address] Referral ID Status Reason Start Date Expiration Date Visits Requested Visits Authorized [id number] Authorized Auto-Generat ed Referral 4 01/03/2025 1 1 * Medication Prior Authorization - Pending Review Specialty Diagnoses / Procedures Referred By Contac t Referred To Contact Diagnoses Stage 3 severe COPD by GOLD classification (HCC) Marisol Amanda APRN.CNP [address] [place] [address] Referral ID Status Reason Start Date Expiration Date V isits Requested Visits Authorized [id number] Pending Review 12/05/2023 02/03/2024 1 1 * Medication Prior Authorization - Pending Review Specialty Diagnoses / Procedures Referred By Contac t Referred To Contact Diagnoses Stage 3 severe COPD by GOLD classification (HCC) Marisol Amanda APRN.DRILL PRESS OPERATOR HELPER [address] [employer] [address] [place] [id number] Referral ID Status Reason Start Date Expiration Date V isits Requested Visits Authorized [id number] Pending Review 12/05/2023 02/03/2024 1 1 [facility] for visit Narrative* Diagnostic Procedure Only (Urgent) - Closed Specialty Diagnoses / Procedures Referred By Contac t Referred To Contact US IMAGING Diagnoses Acute pain of right knee Procedures US DVT LOWER RT DUP-SCAN XTR VEINS UNILATERAL/LIMITED STUDY Nithin Hopper APRN.DRILL PRESS OPERATOR HELPER [address] [place] [address] Us Imaging Referral ID Status Reason Start Date Expiration Date V isits Requested Visits Authorized [id number] Closed Auto-Generate d Referral 06/14/2021 07/14/2022 1 1 [facility] for visit Narrative* Diagnostic Procedure Only (Urgent) - Closed Specialty Diagnoses / Procedures Referred By Contac t Referred To Contact XR IMAGING Diagnoses Acute pain of right knee Procedures XR KNEE GENERAL 4V AP BOTH/PA BOTH/LAT/MERC RIGHT RADIOLOGIC EXAM KNEE COMPLETE 4/MORE VIEWS Nithin Hopper APRN.DRILL PRESS OPERATOR HELPER [address] [place] [address] [place] [address] Referral ID Status Reason Start Date Expiration Date V isits Requested Visits Authorized [id number] Closed Auto-Generate d Referral 06/14/2021 07/14/2022 1 1 [facility] Summary Purpose Family History No Family History Records Found Relationship Condition Age at Onset Recorded Date/T kailash Not Specified Diabetes mellitus Unknown Cardiac disease Unknown Advance Directives No Advanced Directives Records Found Advance Directive Response Recorded Date/ Time Living Will No December 08 2:46pm Power of Maintenance Manager No December 08, 2020 2:46pm Advance Directive Response Recorded Date/ Time Living Will No May 13, 2022 1:28pm Power of Maintenance Manager No May 13 1:28pm Advance Directives on File No May 13, 2022 1:28pm Reason for Referral Specialty Diagnoses / Procedures Referred By Contac t Referred To Contact Emy Renee, PIG MACHINE SUPERVISOR.PLANNING SPECIALIST [address] [place] [address] Referral ID Status Reason Start Date Expiration Date Visits Re quested Visits Authorized [id number] Closed 1 1 Specialty Diagnoses / Procedures Referred By Contac t Referred To Contact BR IMAGING Diagnoses Encounter for screening mammogram for breast cancer Procedures ESA SCREENING SCREENING MAMMOGRAPHY BI 2-VIEW BREAST INC CAD Emy Renee, PIG MACHINE SUPERVISOR.PLANNING SPECIALIST [address] [place] [address] Br Imaging [address] [place] [address] Referral ID Status Reason Start Date Expiration Date Visits Requested Visits Authorized [id number] Pending Review Auto-Generat ed Referral 07/16/2021 08/15/2022 1 1 Specialty Diagnoses / Procedures Referred By Contac t Referred To Contact Diagnoses Asthma with chronic obstructive pulmonary disease (COPD) (HCC) Kashif Bernard MD [address] [place] [address] Referral ID Status Reason Start Date Expiration Date Visits Re quested Visits Authorized [id number] Closed 1 1 Specialty Diagnoses / Procedures Referred By Contac t Referred To Contact Diagnoses Chronic obstructive pulmonary disease, unspecified COPD type (HCC) Emy Renee, PIG MACHINE SUPERVISOR.PLANNING SPECIALIST [address] [place] [address] Referral ID Status Reason Start Date Expiration Date Visits Re quested Visits Authorized [id number] Closed 1 1 Specialty Diagnoses / Procedures Referred By Contac t Referred To Contact CT IMAGING Diagnoses Smoker Encounter for screening for lung cancer Procedures CT LUNG SCREEN WO IVCON COMPUTED TOMOGRAPHY THORAX LW DOSE LNG CA SCR Marcus- Sommer, Maryanne Andressayakov, PIG MACHINE SUPERVISOR.DRILL PRESS OPERATOR HELPER [address] [place] [address] Ct Imaging Referral ID Status Reason Start Date Expiration Date Visits Requested Visits Authorized [id number] Authorized Auto-Generat ed Referral 2 02/24/2023 1 1 Chief Complaint and Reason for Visit Chief Complaint 6 m fu E ORDER Reason for Visit Dyspnea on exertion H/O MTHFR mutation Atherosclerotic heart disease of [place] coronary artery without angina pectoris Mixed hyperlipidemia Takotsubo syndrome Chief Complaint COPD gold III severe COPD severe Chief Complaint COPD gold III severe COPD severe COPD severe Chief Complaint COPD gold III severe COPD severe COPD severe COPD severe Additional Source Comments INFORMATION SOURCE (unrecogn ized section and content) DATE CREATED AUTHOR 12/31/2020 [facility] DATE CREATED AUTHOR AUTHOR'S ORGANIZ ATION 03/17/2022 [facility] DATE CREATED AUTHOR AUTHOR'S ORGANIZ ATION 09/06/2022 [facility] DATE CREATED AUTHOR AUTHOR'S ORGANIZ ATION 11/16/2024 [facility] Source Comments (unrecognize d section and content) In the event this informatio n is protected by the Federal Confidentiality of Alcohol and Drug Abuse Patient Records regulations: The Federal rules restrict any use of the information to criminally investigate or prosecute any alcohol or drug abuse patient.[facility] the event this information is protected by the Federal Confidentiality of Alcohol and Drug Abuse Patient Records regulations: The Federal rules restrict any use of the information to criminally investigate or prosecute any alcohol or drug abuse patient.[facility] Center[facility] the event this information is protected by the Federal Confidentiality of Alcohol and Drug Abuse Patient Records regulations: The Federal rules restrict any use of the information to criminally investigate or prosecute any alcohol or drug abuse patient.[facility] CenterIn the event this information is protected by the Federal Confidentiality of Alcohol and Drug Abuse Patient Records regulations: The Federal rules restrict any use of the information to criminally investigate or prosecute any alcohol or drug abuse patient.[facility] CenterIn the event this information is protected by the Federal Confidentiality of Alcohol and Drug Abuse Patient Records regulations: The Federal rules restrict any use of the information to criminally investigate or prosecute any alcohol or drug abuse patient.[facility] CenterIn the event this information is protected by the Federal Confidentiality of Alcohol and Drug Abuse Patient Records regulations: The Federal rules restrict any use of the information to criminally investigate or prosecute any alcohol or drug abuse patient.[facility] CenterIn the event this information is protected by the Federal Confidentiality of Alcohol and Drug Abuse Patient Records regulations: The Federal rules restrict any use of the information to criminally investigate or prosecute any alcohol or drug abuse patient.[facility] CenterIn the event this information is protected by the Federal Confidentiality of Alcohol and Drug Abuse Patient Records regulations: The Federal rules restrict any use of the information to criminally investigate or prosecute any alcohol or drug abuse patient.[facility] CenterIn the event this information is protected by the Federal Confidentiality of Alcohol and Drug Abuse Patient Records regulations: The Federal rules restrict any use of the information to criminally investigate or prosecute any alcohol or drug abuse patient.[facility] CenterIn the event this information is protected by the Federal Confidentiality of Alcohol and Drug Abuse Patient Records regulations: The Federal rules restrict any use of the information to criminally investigate or prosecute any alcohol or drug abuse patient.[facility] CenterIn the event this information is protected by the Federal Confidentiality of Alcohol and Drug Abuse Patient Records regulations: The Federal rules restrict any use of the information to criminally investigate or prosecute any alcohol or drug abuse patient.[facility] CenterIn the event this information is protected by the Federal Confidentiality of Alcohol and Drug Abuse Patient Records regulations: The Federal rules restrict any use of the information to criminally investigate or prosecute any alcohol or drug abuse patient.[facility] CenterIn the event this information is protected by the Federal Confidentiality of Alcohol and Drug Abuse Patient Records regulations: The Federal rules restrict any use of the information to criminally investigate or prosecute any alcohol or drug abuse patient.[facility] CenterIn the event this information is protected by the Federal Confidentiality of Alcohol and Drug Abuse Patient Records regulations: The Federal rules restrict any use of the information to criminally investigate or prosecute any alcohol or drug abuse patient.[facility] the event this information is protected by the Federal Confidentiality of Alcohol and Drug Abuse Patient Records regulations: The Federal rules restrict any use of the information to criminally investigate or prosecute any alcohol or drug abuse patient.[facility] CenterIn the event this information is protected by the Federal Confidentiality of Alcohol and Drug Abuse Patient Records regulations: The Federal rules restrict any use of the information to criminally investigate or prosecute any alcohol or drug abuse patient.[facility] CenterIn the event this information is protected by the Federal Confidentiality of Alcohol and Drug Abuse Patient Records regulations: The Federal rules restrict any use of the information to criminally investigate or prosecute any alcohol or drug abuse patient.[facility] CenterIn the event this information is protected by the Federal Confidentiality of Alcohol and Drug Abuse Patient Records regulations: The Federal rules restrict any use of the information to criminally investigate or prosecute any alcohol or drug abuse patient.[facility] CenterIn the event this information is protected by the Federal Confidentiality of Alcohol and Drug Abuse Patient Records regulations: The Federal rules restrict any use of the information to criminally investigate or prosecute any alcohol or drug abuse patient.[facility] CenterIn the event this information is protected by the Federal Confidentiality of Alcohol and Drug Abuse Patient Records regulations: The Federal rules restrict any use of the information to criminally investigate or prosecute any alcohol or drug abuse patient.[facility] CenterIn the event this information is protected by the Federal Confidentiality of Alcohol and Drug Abuse Patient Records regulations: The Federal rules restrict any use of the information to criminally investigate or prosecute any alcohol or drug abuse patient.[facility] CenterIn the event this information is protected by the Federal Confidentiality of Alcohol and Drug Abuse Patient Records regulations: The Federal rules restrict any use of the information to criminally investigate or prosecute any alcohol or drug abuse patient.[facility] CenterIn the event this information is protected by the Federal Confidentiality of Alcohol and Drug Abuse Patient Records regulations: The Federal rules restrict any use of the information to criminally investigate or prosecute any alcohol or drug abuse patient.[facility] CenterIn the event this information is protected by the Federal Confidentiality of Alcohol and Drug Abuse Patient Records regulations: The Federal rules restrict any use of the information to criminally investigate or prosecute any alcohol or drug abuse patient.[facility] CenterIn the event this information is protected by the Federal Confidentiality of Alcohol and Drug Abuse Patient Records regulations: The Federal rules restrict any use of the information to criminally investigate or prosecute any alcohol or drug abuse patient.[facility] CenterIn the event this information is protected by the Federal Confidentiality of Alcohol and Drug Abuse Patient Records regulations: The Federal rules restrict any use of the information to criminally investigate or prosecute any alcohol or drug abuse patient.[facility] CenterIn the event this information is protected by the Federal Confidentiality of Alcohol and Drug Abuse Patient Records regulations: The Federal rules restrict any use of the information to criminally investigate or prosecute any alcohol or drug abuse patient.[facility] CenterIn the event this information is protected by the Federal Confidentiality of Alcohol and Drug Abuse Patient Records regulations: The Federal rules restrict any use of the information to criminally investigate or prosecute any alcohol or drug abuse patient.[facility] CenterIn the event this information is protected by the Federal Confidentiality of Alcohol and Drug Abuse Patient Records regulations: The Federal rules restrict any use of the information to criminally investigate or prosecute any alcohol or drug abuse patient.[facility] CenterIn the event this information is protected by the Federal Confidentiality of Alcohol and Drug Abuse Patient Records regulations: The Federal rules restrict any use of the information to criminally investigate or prosecute any alcohol or drug abuse patient.[facility] CenterIn the event this information is protected by the Federal Confidentiality of Alcohol and Drug Abuse Patient Records regulations: The Federal rules restrict any use of the information to criminally investigate or prosecute any alcohol or drug abuse patient.[facility] CenterIn the event this information is protected by the Federal Confidentiality of Alcohol and Drug Abuse Patient Records regulations: The Federal rules restrict any use of the information to criminally investigate or prosecute any alcohol or drug abuse patient.[facility] CenterIn the event this information is protected by the Federal Confidentiality of Alcohol and Drug Abuse Patient Records regulations: The Federal rules restrict any use of the information to criminally investigate or prosecute any alcohol or drug abuse patient.[facility] CenterIn the event this information is protected by the Federal Confidentiality of Alcohol and Drug Abuse Patient Records regulations: The Federal rules restrict any use of the information to criminally investigate or prosecute any alcohol or drug abuse patient.[facility] CenterIn the event this information is protected by the Federal Confidentiality of Alcohol and Drug Abuse Patient Records regulations: The Federal rules restrict any use of the information to criminally investigate or prosecute any alcohol or drug abuse patient.[facility] CenterIn the event this information is protected by the Federal Confidentiality of Alcohol and Drug Abuse Patient Records regulations: The Federal rules restrict any use of the information to criminally investigate or prosecute any alcohol or drug abuse patient.[facility] CenterIn the event this information is protected by the Federal Confidentiality of Alcohol and Drug Abuse Patient Records regulations: The Federal rules restrict any use of the information to criminally investigate or prosecute any alcohol or drug abuse patient.[facility] CenterIn the event this information is protected by the Federal Confidentiality of Alcohol and Drug Abuse Patient Records regulations: The Federal rules restrict any use of the information to criminally investigate or prosecute any alcohol or drug abuse patient.[facility] CenterIn the event this information is protected by the Federal Confidentiality of Alcohol and Drug Abuse Patient Records regulations: The Federal rules restrict any use of the information to criminally investigate or prosecute any alcohol or drug abuse patient.[facility] CenterIn the event this information is protected by the Federal Confidentiality of Alcohol and Drug Abuse Patient Records regulations: The Federal rules restrict any use of the information to criminally investigate or prosecute any alcohol or drug abuse patient.[facility] CenterIn the event this information is protected by the Federal Confidentiality of Alcohol and Drug Abuse Patient Records regulations: The Federal rules restrict any use of the information to criminally investigate or prosecute any alcohol or drug abuse patient.[facility] CenterIn the event this information is protected by the Federal Confidentiality of Alcohol and Drug Abuse Patient Records regulations: The Federal rules restrict any use of the information to criminally investigate or prosecute any alcohol or drug abuse patient.[facility] CenterIn the event this information is protected by the Federal Confidentiality of Alcohol and Drug Abuse Patient Records regulations: The Federal rules restrict any use of the information to criminally investigate or prosecute any alcohol or drug abuse patient.[facility] CenterIn the event this information is protected by the Federal Confidentiality of Alcohol and Drug Abuse Patient Records regulations: The Federal rules restrict any use of the information to criminally investigate or prosecute any alcohol or drug abuse patient.[facility] CenterIn the event this information is protected by the Federal Confidentiality of Alcohol and Drug Abuse Patient Records regulations: The Federal rules restrict any use of the information to criminally investigate or prosecute any alcohol or drug abuse patient.[facility] CenterIn the event this information is protected by the Federal Confidentiality of Alcohol and Drug Abuse Patient Records regulations: The Federal rules restrict any use of the information to criminally investigate or prosecute any alcohol or drug abuse patient.[facility] CenterIn the event this information is protected by the Federal Confidentiality of Alcohol and Drug Abuse Patient Records regulations: The Federal rules restrict any use of the information to criminally investigate or prosecute any alcohol or drug abuse patient.[facility] CenterIn the event this information is protected by the Federal Confidentiality of Alcohol and Drug Abuse Patient Records regulations: The Federal rules restrict any use of the information to criminally investigate or prosecute any alcohol or drug abuse patient.[facility] CenterIn the event this information is protected by the Federal Confidentiality of Alcohol and Drug Abuse Patient Records regulations: The Federal rules restrict any use of the information to criminally investigate or prosecute any alcohol or drug abuse patient.[facility] CenterIn the event this information is protected by the Federal Confidentiality of Alcohol and Drug Abuse Patient Records regulations: The Federal rules restrict any use of the information to criminally investigate or prosecute any alcohol or drug abuse patient.[facility] CenterIn the event this information is protected by the Federal Confidentiality of Alcohol and Drug Abuse Patient Records regulations: The Federal rules restrict any use of the information to criminally investigate or prosecute any alcohol or drug abuse patient.[facility] CenterIn the event this information is protected by the Federal Confidentiality of Alcohol and Drug Abuse Patient Records regulations: The Federal rules restrict any use of the information to criminally investigate or prosecute any alcohol or drug abuse patient.[facility] CenterIn the event this information is protected by the Federal Confidentiality of Alcohol and Drug Abuse Patient Records regulations: The Federal rules restrict any use of the information to criminally investigate or prosecute any alcohol or drug abuse patient.[facility] CenterIn the event this information is protected by the Federal Confidentiality of Alcohol and Drug Abuse Patient Records regulations: The Federal rules restrict any use of the information to criminally investigate or prosecute any alcohol or drug abuse patient.[facility] CenterIn the event this information is protected by the Federal Confidentiality of Alcohol and Drug Abuse Patient Records regulations: The Federal rules restrict any use of the information to criminally investigate or prosecute any alcohol or drug abuse patient.[facility] CenterIn the event this information is protected by the Federal Confidentiality of Alcohol and Drug Abuse Patient Records regulations: The Federal rules restrict any use of the information to criminally investigate or prosecute any alcohol or drug abuse patient.[facility] CenterIn the event this information is protected by the Federal Confidentiality of Alcohol and Drug Abuse Patient Records regulations: The Federal rules restrict any use of the information to criminally investigate or prosecute any alcohol or drug abuse patient.[facility] CenterIn the event this information is protected by the Federal Confidentiality of Alcohol and Drug Abuse Patient Records regulations: The Federal rules restrict any use of the information to criminally investigate or prosecute any alcohol or drug abuse patient.[facility] CenterIn the event this information is protected by the Federal Confidentiality of Alcohol and Drug Abuse Patient Records regulations: The Federal rules restrict any use of the information to criminally investigate or prosecute any alcohol or drug abuse patient.[facility] CenterIn the event this information is protected by the Federal Confidentiality of Alcohol and Drug Abuse Patient Records regulations: The Federal rules restrict any use of the information to criminally investigate or prosecute any alcohol or drug abuse patient.[facility] CenterIn the event this information is protected by the Federal Confidentiality of Alcohol and Drug Abuse Patient Records regulations: The Federal rules restrict any use of the information to criminally investigate or prosecute any alcohol or drug abuse patient.[facility] CenterIn the event this information is protected by the Federal Confidentiality of Alcohol and Drug Abuse Patient Records regulations: The Federal rules restrict any use of the information to criminally investigate or prosecute any alcohol or drug abuse patient.[facility] CenterIn the event this information is protected by the Federal Confidentiality of Alcohol and Drug Abuse Patient Records regulations: The Federal rules restrict any use of the information to criminally investigate or prosecute any alcohol or drug abuse patient.[facility] [facility] Reason for Visit (unrecogniz ed section and content) Reason Comments Established Patient coughing Reason Comments Results Reason Comments Established Patient Reason Comments Knee Pain R knee x6 hours, no known injury Reason Comments Medication Question Eliquis vs Coumadin Reason Onset Date Comments Refill Request 07/18/2021 Reason Comments Lung Eval Reason Comments F/U 6 months Specialty Diagnoses / Procedures Referred By Contac t Referred To Contact Internal Medicine / INTERNAL MEDICINE Diagnoses 6 month follow up Procedures EST PATIENT Kashif Bernard MD [address] [place] [address] Kashif Bernard MD [address] [place] [address] Referral ID Status Reason Start Date Expiration Date Visits Re quested Visits Authorized [id number] Closed 05/20/2020 08/18/2020 1 1 Reason Comments Covid19 Concern possible exposure, f atigue x4 days Reason Comments Prescription Refills Reason Comments Neck Pain Pain with L sided sw elling x3 weeks, no known cause Reason Onset Date Comments Refill Request 11/28/2021 Reason Comments F/U 6 months Reason Comments Follow Up COPD Reason Comments Spirometry Specialty Diagnoses / Procedures Referred By Contac t Referred To [facility] Diagnoses Stage 3 severe COPD by GOLD classification (HCC) Cigarette smoker Procedures SPIROMETRY BASELINE ONLY SPMTRY W/VC EXPIRATORY LOUANN W/[place] [address] [place] [address] [facility] [address] [place] [address] Referral ID Status Reason Start Date Expiration Date V isits Requested Visits Authorized [id number] Closed Auto-Generate d Referral 04/01/2021 05/01/2022 1 1 Reason Comments Counseling Reason Onset Date Comments Refill Request 02/11/2022 Specialty Diagnoses / Procedures Referred By Contac t Referred To Contact CT IMAGING Diagnoses Smoker Encounter for screening for lung cancer Procedures CT LUNG SCREEN WO IVCON COMPUTED TOMOGRAPHY THORAX LW DOSE LNG CA Maryanne Gupta, PIG MACHINE SUPERVISOR.DRILL PRESS OPERATOR HELPER [address] [place] [address] Ct Imaging Referral ID Status Reason Start Date Expiration Date V isits Requested Visits Authorized [id number] Closed Auto-Generate d Referral 01/25/2022 02/24/2023 1 1 Reason Comments Established Patient 3 month follow up Reason Onset Date Comments Refill Request 04/15/2022 Reason Onset Date Comments Refill Request 06/10/2022 Reason Onset Date Comments Refill Request 07/17/2022 Reason Comments Established Patient 3 month follow up [place] Reason Comments Urinary Problem Possible kidney infe ction, frequency, pressure x 3 weeks Reason Comments Refill Request Reason Comments Sinus Problem sinus pressure and d rainage x 2 days Reason Onset Date Comments Refill Request 05/31/2023 Reason Onset Date Comments Refill Request 07/06/2023 Reason Onset Date Comments Refill Request 08/23/2023 Reason Onset Date Comments Refill Request 08/24/2023 Reason Onset Date Comments Refill Request 11/21/2023 Reason Comments Established Patient 6 month follow up [place] Reason Onset Date Comments Refill Request 01/10/2024 Reason Comments Headache Cough, headache, sin us pressure and pain, head congestion, fever, less than 24 hour Reason Onset Date Comments Refill Request 03/08/2024 Reason Onset Date Comments Refill Request 04/15/2024 Specialty Diagnoses / Procedures Referred By Contac t Referred To Contact [facility] Diagnoses Stage 3 severe COPD by GOLD classification ([facility]) Procedures SPIROMETRY WITH DILATOR IF OBSTRUCTED BRNCDILAT RSPSE SPMTRY PRE&POST-BRNCDILAT ADMN Marisol Amanda APRN.DRILL PRESS OPERATOR HELPER [address] [place] [address] Phone: tel: fax: [facility] [employer] [place] [phone] Referral ID Status Reason Start Date Expiration Date V isits Requested Visits Authorized [id number] Closed Auto-Generate d Referral 12/05/2023 01/03/2025 1 1 Specialty Diagnoses / Procedures Referred By Contac t Referred To Contact [facility] Diagnoses Stage 3 severe COPD by GOLD classification ([facility]) Procedures LUNG DIFFUSION CAPACITY ([facility]CO) DIFFUSING CAPACITY Marisol Amanda APRN.DRILL PRESS OPERATOR HELPER [address] [place] [address] Phone: tel: fax: [facility] [place] [address] Referral ID Status Reason Start Date Expiration Date V isits Requested Visits Authorized [id number] Closed Auto-Generate d Referral 12/05/2023 01/03/2025 1 1 Reason Comments Established Patient 6 month follow up [place] Reason Comments Radiology CT Specialty Diagnoses / Procedures Referred By Contac t Referred To Contact CT IMAGING Diagnoses Encounter for screening for lung cancer Former cigarette smoker Procedures CT LUNG SCREEN WO IVCON COMPUTED TOMOGRAPHY THORAX LW DOSE LNG CA [facility], PIG MACHINE SUPERVISOR.DRILL PRESS OPERATOR HELPER [address] [place] [address] Phone: tel: fax: [place] [address] Referral ID Status Reason Start Date Expiration Date V isits Requested Visits Authorized [id number] Closed Auto-Generate d Referral 06/13/2024 07/13/2025 1 1 Reason Comments Established Patient Specialty Diagnoses / Procedures Referred By Contac t Referred To Contact CT IMAGING Diagnoses Encounter for screening for lung cancer Former cigarette smoker Procedures CT LUNG SCREEN WO IVCON COMPUTED TOMOGRAPHY THORAX LW DOSE LNG CA [facility], Dangelo, PIG MACHINE SUPERVISOR.DRILL PRESS OPERATOR HELPER [address] [place] [address] Phone: tel: fax: [place] [phone] Referral ID Status Reason Start Date Expiration Date V isits Requested Visits Authorized [id number] Closed Auto-Generate d Referral 06/13/2024 07/13/2025 1 1 Reason Onset Date Comments Refill Request 07/22/2024 Reason Onset Date Comments Refill Request 07/19/2024 Reason Comments Radiology US Specialty Diagnoses / Procedures Referred By Contac t Referred To Contact US IMAG[facility] Diagnoses Elevated alkaline phosphatase level Procedures US ABD RIGHT UPPER QUADRANT US ABDOMINAL REAL TIME W/IMAGE LIMITED Kashif Bernard MD [address] [place] [address] Phone: tel: fax: [place] [phone] Referral ID Status Reason Start Date Expiration Date V isits Requested Visits Authorized [id number] Closed Auto-Generate d Referral 08/05/2024 09/04/2025 1 1 Reason Comments F/U 6 Month Reason Onset Date Comments Refill Request 09/01/2024 Care Teams (unrecognized sec tion and content) Metal Leaf Layer Relationship Specialty Start Date End Date Kashif Bernard MD [facility] [place] [address] PCP - General 11/15/06 Metal Leaf Layer Relationship Specialty Start Date End Date Kashif Bernard MD [address] [place] [address], [place] [address] PCP - General 11/15/06 Metal Leaf Layer Relationship Specialty Start Date End Date Kashif Bernard MD [address] [place] [address], [place] [address] PCP - General 11/15/06 Metal Leaf Layer Relationship Specialty Start Date End Date Kashif Bernard MD [address] [place] [address], [place] [address] PCP - General 11/15/06 Metal Leaf Layer Relationship Specialty Start Date End Date Kashif Bernard MD [address] [place] [address], [place] [address] PCP - General 11/15/06 Metal Leaf Layer Relationship Specialty Start Date End Date Kashif Bernard MD [address] [place] [address], [place] [address] PCP - General 11/15/06 Metal Leaf Layer Relationship Specialty Start Date End Date Kashif Bernard MD [address] [place] [address], [place] [address] PCP - General 11/15/06 Metal Leaf Layer Relationship Specialty Start Date End Date Kashif Bernard MD [address] [place] [address], [place] [address] PCP - General 11/15/06 Metal Leaf Layer Relationship Specialty Start Date End Date Kashif Bernard MD [address] [place] [address], [place] [address] PCP - General 11/15/06 Metal Leaf Layer Relationship Specialty Start Date End Date Kashif Bernard MD [facility] [place] [address] PCP - General 11/15/06 Metal Leaf Layer Relationship Specialty Start Date End Date Kashif Bernard MD [address] [place] [address], [place] [address] PCP - General 11/15/06 Metal Leaf Layer Relationship Specialty Start Date End Date Kashif Bernard MD [address] [place] [address], [place] [address] PCP - General 11/15/06 Metal Leaf Layer Relationship Specialty Start Date End Date Kashif Bernard MD [address] [place] [address], [place] [address] PCP - General 11/15/06 Metal Leaf Layer Relationship Specialty Start Date End Date Kashif Bernard MD [address] [place] [address], [place] [address] PCP - General 11/15/06 Metal Leaf Layer Relationship Specialty Start Date End Date Kashif Bernard MD [address] [place] [address], [place] [address] PCP - General 11/15/06 Metal Leaf Layer Relationship Specialty Start Date End Date Kashif Bernard MD [address] [place] [address], [place] [address] PCP - General 11/15/06 Metal Leaf Layer Relationship Specialty Start Date End Date Kashif Bernard MD [address] [place] [address], [place] [address] PCP - General 11/15/06 Metal Leaf Layer Relationship Specialty Start Date End Date Kashif Bernard MD [address] [place] [address], [place] [address] PCP - General 11/15/06 Metal Leaf Layer Relationship Specialty Start Date End Date Kashif Bernard MD [address] [place] [address] PCP - General 11/15/06 Team Status: Active Member Role Status Dates Dr. Kashif Bernard MD Family Provider Active Dr. Kashif Bernard MD Primary Care Provider Active Team Status: Inactive Member Role Status Dates Dr. Kashif Bernard MD Primary Care Provider Active Dr. Maria Field MD Attending Provider, Referring Provider Active Metal Leaf Layer Relationship Specialty Start Date End Date Kashif Bernard MD [address] [place] [address] PCP - General 11/15/06 Metal Leaf Layer Relationship Specialty Start Date End Date Kashif Bernard MD [address] [place] [address] PCP - General 11/15/06 Metal Leaf Layer Relationship Specialty Start Date End Date Kashif Bernard MD [address] [place] [address] PCP - General 11/15/06 Metal Leaf Layer Relationship Specialty Start Date End Date Kashif Bernard MD [address] [place] [address] PCP - General 11/15/06 Metal Leaf Layer Relationship Specialty Start Date End Date Kashif Bernard MD [address] [place] [address] PCP - General 11/15/06 Metal Leaf Layer Relationship Specialty Start Date End Date Kashif Bernard MD [address] [place] [address] PCP - General 11/15/06 Metal Leaf Layer Relationship Specialty Start Date End Date Kashif Bernard MD [address] [place] [address] PCP - General 11/15/06 Metal Leaf Layer Relationship Specialty Start Date End Date Kashif Bernard MD [address] [place] [address] PCP - General 11/15/06 Metal Leaf Layer Relationship Specialty Start Date End Date Kashif Bernard MD [address] [place] [address] PCP - General 11/15/06 Metal Leaf Layer Relationship Specialty Start Date End Date Kashif Bernard MD [address] [place] [address] PCP - General 11/15/06 Metal Leaf Layer Relationship Specialty Start Date End Date Kashif Bernard MD [address] [place] [address] PCP - General 11/15/06 Metal Leaf Layer Relationship Specialty Start Date End Date Kashif Bernard MD [address] [place] [address] PCP - General 11/15/06 Metal Leaf Layer Relationship Specialty Start Date End Date Kashif Bernard MD [address] [place] [address] PCP - General 11/15/06 Metal Leaf Layer Relationship Specialty Start Date End Date Kashif Bernard MD [address] [place] [address] PCP - General 11/15/06 Metal Leaf Layer Relationship Specialty Start Date End Date Kashif Bernard MD [address] [place] [address] PCP - General 11/15/06 Metal Leaf Layer Relationship Specialty Start Date End Date Kashif Bernard MD [address] [place] [address] PCP - General 11/15/06 Metal Leaf Layer Relationship Specialty Start Date End Date Kashif Bernard MD [address] [place] [address] PCP - General 11/15/06 Emy Renee, PIG MACHINE SUPERVISOR.PLANNING SPECIALIST [address] [place] [address] Community Mental Health Worker Internal Medicine 01/15/24 Morelia Guo PIG MACHINE SUPERVISOR.DRILL PRESS OPERATOR HELPER [address] [place] [address] Community Mental Health Worker Internal Medicine 01/15/24 Metal Leaf Layer Relationship Specialty Start Date End Date Kashif Bernard MD [address] [place] [address] PCP - General 11/15/06 Emy Renee, PIG MACHINE SUPERVISOR.PLANNING SPECIALIST [address] [place] [address] Community Mental Health Worker Internal Medicine 01/15/24 Morelia Guo PIG MACHINE SUPERVISOR.DRILL PRESS OPERATOR HELPER [address] [place] [address] [facility] Internal Medicine 01/15/24 Metal Leaf Layer Relationship Specialty Start Date End Date Kashif Bernard MD [address] [facility] [place] [address] PCP - General 11/15/06 Emy Renee, PIG MACHINE SUPERVISOR.PLANNING SPECIALIST [address] [place] [address] Community Mental Health Worker Internal Medicine 01/15/24 Morelia Guo PIG MACHINE SUPERVISOR.DRILL PRESS OPERATOR HELPER [address] [place] [address] [facility] Internal Medicine 01/15/24 Metal Leaf Layer Relationship Specialty Start Date End Date Kashif Bernard MD [address] [place] [address] PCP - General 11/15/06 Emy Renee, PIG MACHINE SUPERVISOR.PLANNING SPECIALIST [address] [place] [address] [facility] Internal Medicine 01/15/24 Morelia Guo APRN.DRILL PRESS OPERATOR HELPER [address] [place] [address] [facility] Internal Medicine 01/15/24 Metal Leaf Layer Relationship Specialty Start Date End Date Kashif Bernard MD [address] [place] [address] PCP - General 11/15/06 Emy Renee, PIG MACHINE SUPERVISOR.PLANNING SPECIALIST [address] [facility] [place] [address] [facility] Internal Medicine 01/15/24 Morelia Guo APRN.DRILL PRESS OPERATOR HELPER [address] [place] [address] Community Mental Health Worker Internal Medicine 01/15/24 Metal Leaf Layer Relationship Specialty Start Date End Date Kashif Bernard MD [address] [facility] [place] [address] PCP - General 11/15/06 Emy Renee, PIG MACHINE SUPERVISOR.PLANNING SPECIALIST [address] [facility] [place] [address] Community Mental Health Worker Internal Medicine 01/15/24 Morelia Guo APRN.DRILL PRESS OPERATOR HELPER [address] [facility] [place] [address] [facility] Internal Medicine 01/15/24 Metal Leaf Layer Relationship Specialty Start Date End Date Kashif Bernard MD [address] [facility] [place] [address] PCP - General 11/15/06 Emy Renee, PIG MACHINE SUPERVISOR.PLANNING SPECIALIST [address] [facility] [place] [address] Community Mental Health Worker Internal Medicine 01/15/24 Morelia Guo PIG MACHINE SUPERVISOR.DRILL PRESS OPERATOR HELPER [address] [facility] [place] [address] Community Mental Health Worker Internal Medicine 01/15/24 Metal Leaf Layer Relationship Specialty Start Date End Date Kashif Bernard MD [address] [facility] [place] [address] PCP - General 11/15/06 Emy Renee, PIG MACHINE SUPERVISOR.PLANNING SPECIALIST [address] [facility] [place] [address] Community Mental Health Worker Internal Medicine 01/15/24 Morelia Guo PIG MACHINE SUPERVISOR.DRILL PRESS OPERATOR HELPER [address] [place] [address] Community Mental Health Worker Internal Medicine 04/30/24 Metal Leaf Layer Relationship Specialty Start Date End Date Kashif Bernard MD [address] [place] [address] PCP - General 11/15/06 Emy Renee, PIG MACHINE SUPERVISOR.PLANNING SPECIALIST [address] [place] [address] Community Mental Health Worker Internal Medicine 01/15/24 Morelia Guo PIG MACHINE SUPERVISOR.DRILL PRESS OPERATOR HELPER [address] [place] [address] Community Mental Health Worker Internal Medicine 04/30/24 Metal Leaf Layer Relationship Specialty Start Date End Date Kashif Bernard MD [address] [place] [address] PCP - General 11/15/06 Emy Renee, PIG MACHINE SUPERVISOR.PLANNING SPECIALIST [address] [place] [address] Community Mental Health Worker Internal Medicine 01/15/24 Morelia Guo PIG MACHINE SUPERVISOR.DRILL PRESS OPERATOR HELPER [address] [place] [address] [facility] Internal Medicine 04/30/24 Metal Leaf Layer Relationship Specialty Start Date End Date Kashif Bernard MD [address] [place] [address] PCP - General 11/15/06 Emy Renee, PIG MACHINE SUPERVISOR.PLANNING SPECIALIST [address] [facility] [place] [address] Community Mental Health Worker Internal Medicine 01/15/24 Morelia Guo PIG MACHINE SUPERVISOR.DRILL PRESS OPERATOR HELPER [address] [place] [address] Community Mental Health Worker Internal Medicine 04/30/24 Metal Leaf Layer Relationship Specialty Start Date End Date Kashif Bernard MD [address] [facility] [place] [address] PCP - General 11/15/06 Morelia Guo PIG MACHINE SUPERVISOR.DRILL PRESS OPERATOR HELPER [address] [facility] [place] [address] Community Mental Health Worker Internal Medicine 04/30/24 Emy Renee, PIG MACHINE SUPERVISOR.PLANNING SPECIALIST [address] [facility] [place] [address] Community Mental Health Worker Internal Medicine 06/26/24 Metal Leaf Layer Relationship Specialty Start Date End Date Kashif Bernard MD [address] [place] [address] PCP - General 11/15/06 Morelia Guo PIG MACHINE SUPERVISOR.DRILL PRESS OPERATOR HELPER [address] [facility] [place] [address] Community Mental Health Worker Internal Medicine 04/30/24 Emy Renee, PIG MACHINE SUPERVISOR.PLANNING SPECIALIST [address] [place] [address] Community Mental Health Worker Internal Medicine 06/26/24 Metal Leaf Layer Relationship Specialty Start Date End Date Kashif Bernard MD [address] [place] [address] PCP - General 11/15/06 Morelia Guo APRN.DRILL PRESS OPERATOR HELPER [address] [place] [address] Community Mental Health Worker Internal Medicine 04/30/24 Emy Renee, PIG MACHINE SUPERVISOR.PLANNING SPECIALIST [address] [facility] [place] [address] Community Mental Health Worker Internal Medicine 06/26/24 Metal Leaf Layer Relationship Specialty Start Date End Date Kashif Bernard MD [address] [place] [address] PCP - General 11/15/06 Morelia Guo APRN.DRILL PRESS OPERATOR HELPER [address] [facility] [place] [address] Community Mental Health Worker Internal Medicine 04/30/24 Emy Renee, PIG MACHINE SUPERVISOR.PLANNING SPECIALIST [address] [place] [address] Community Mental Health Worker Internal Medicine 06/26/24 Metal Leaf Layer Relationship Specialty Start Date End Date Kashif Bernard MD [address] [place] [address] PCP - General 11/15/06 Morelia Guo APRN.DRILL PRESS OPERATOR HELPER [address] [facility] [place] [address] Community Mental Health Worker Internal Medicine 04/30/24 Emy Renee, PIG MACHINE SUPERVISOR.PLANNING SPECIALIST [address] [facility] [place] [address] Community Mental Health Worker Internal Medicine 06/26/24 Metal Leaf Layer Relationship Specialty Start Date End Date Kashif Bernard MD [address] [place] [address] PCP - General 11/15/06 Morelia Guo, PIG MACHINE SUPERVISOR.DRILL PRESS OPERATOR HELPER [address] [place] [address] Community Mental Health Worker Internal Medicine 04/30/24 Emy Renee, PIG MACHINE SUPERVISOR.PLANNING SPECIALIST [address] [place] [address] [facility] Internal Medicine 06/26/24 Metal Leaf Layer Relationship Specialty Start Date End Date Kashif Bernard MD [address] [place] [address] PCP - General 11/15/06 Morelia Guo, PIG MACHINE SUPERVISOR.DRILL PRESS OPERATOR HELPER [address] [place] [address] Community Mental Health Worker Internal Medicine 04/30/24 Emy Renee, PIG MACHINE SUPERVISOR.PLANNING SPECIALIST [address] [place] [address] [facility] Internal Medicine 06/26/24 Metal Leaf Layer Relationship Specialty Start Date End Date Kashif Bernard MD [address] [place] [address] PCP - General 11/15/06 Morelia Guo, PIG MACHINE SUPERVISOR.DRILL PRESS OPERATOR HELPER [address] [place] [address] Community Mental Health Worker Internal Medicine 04/30/24 Emy Renee, MONY.PLANNING SPECIALIST [address] [place], [place] [address] [facility] Internal Medicine 06/26/24 Metal Leaf Layer Relationship Specialty Start Date End Date Kashif Bernard MD [address] [place], [place] [address] PCP - General 11/15/06 Morelia Guo PIG MACHINE SUPERVISOR.DRILL PRESS OPERATOR HELPER [address] [place], [place] [address] [facility] Internal Medicine 04/30/24 Emy Renee, MONY.PLANNING SPECIALIST [address] [place], [place] [address] [facility] Internal Medicine 06/26/24 Goals (unrecognized section and content) Goals may be documented in a n alternate sectionGoals may be documented in an alternate sectionGoals may be documented in an alternate sectionGoals may be documented in an alternate section FOR RECORDS PERTAINING TO PATIENTS WHO ARE OR HAVE BEEN ENROLLED IN A CHEMICAL DEPENDENCY/SUBSTANCEABUSE PROGRAM, SOME INFORMATION MAY BE OMITTED. This clinical summary was aggregated from multiple sources. Caution should be exercised in using it in the provision of clinical care. This summary normalizes information from multiple sources, and as a consequence, information in this document may materially change the coding, format and clinical context of patient data. In addition, data may be omitted in some cases. CLINICAL DECISIONS SHOULD BE BASED ON THE PRIMARY CLINICAL RECORDS. [employer] provides no warranty or guarantee of the accuracy or completeness of information in this document.
[2024-12-11 02:00] VITALS: RESP 16
[2024-12-11 02:47] VITALS: BP 137/74; PULSE 85; RESP 16; TEMP 36.8; O2SAT 95
[2024-12-11 07:00] VITALS: PULSE 82; RESP 20; O2SAT 95
[2024-12-11] MEDS: Budesonide Respules 0.5 MG/2 ML AMPUL.NEB. INHALATION (07:00)
[2024-12-11 09:00] VITALS: BP 116/57; PULSE 80; RESP 16; TEMP 36.6; O2SAT 94
[2024-12-11] MEDS: Lidocaine 5% Patch 1 PATCH TOPICAL (09:09)
[2024-12-11] MEDS: APIXABAN 5 MG TABLET PO (09:10)
--- NOTE | 2024-12-11 09:24 | DS.PCM_ITS ---
Providers Date of Admission: 12/10/24 Primary Care Physician: Dr. Tammi Myrick MD Reason For Visit: back pain Diagnosis Discharge Diagnosis (1) Intractable back pain: Status: Acute Code(s): M54.9 - Dorsalgia, unspecified Plan: Secondary to paraspinal muscle spasm. Ordered Lidoderm patch, oxycodone, as needed hydromorphone, scheduled acetaminophen and ketorolac. Hopefully with time that will get better that she be able to be discharged home. Feeling better. Able to sit up now without difficulty. Patient to be discharged home today, encouraged ice as needed, scheduled acetaminophen, avoiding NSAIDs given her use of 10A inhibitors and aspirin, as needed short course of oxycodone and Flexeril. Plan History of MTHFR mutation with history of pulmonary embolism: Continue with apixaban Hypertension: Continue with amlodipine VTE prophylaxis: Not indicated patient is already on apixaban CODE STATUS: Interested patient. Patient wishes to be full code Patient seen and examined on December 10. Medications at Discharge Home Medications montelukast 10 mg tablet 10 mg PO DAILY ASTHMA SOB 02/05/18 aspirin 81 mg chewable tablet 81 mg PO DAILY@0800 ##30 02/10/18 cetirizine 10 mg tablet 10 mg PO DAILY 04/12/18 ipratropium 0.5 mg-albuterol 3 mg (2.5 mg base)/3 mL nebulization soln 3 ml inhalation Q4H.RT PRN Shortness Of Breath 01/10/19 apixaban 5 mg tablet (Eliquis) 5 mg PO BID 01/06/21 budesonide-formoterol HFA 160 mcg-4.5 mcg/actuation aerosol inhaler 2 puff inhalation BID 07/19/21 omeprazole 40 mg capsule,delayed release 40 mg PO DAILY 07/19/21 amlodipine 10 mg tablet 10 mg PO DAILY 05/13/22 atorvastatin 40 mg tablet 40 mg PO QHS #90 tabs 09/08/22 albuterol sulfate 90 mcg/actuation aerosol inhaler 2 puff inhalation Q4H PRN Sob &/Or Wheezing 12/10/24 arformoterol 15 mcg/2 mL solution for nebulization 2 ml inhalation DAILY 12/10/24 citalopram 40 mg tablet (Celexa) 40 mg PO DAILY ANXIETY 12/10/24 diclofenac potassium 25 mg tablet 25 mg PO DAILY PRN HIP PAIN 12/10/24 furosemide 40 mg tablet (Lasix) 40 mg PO PRN edema 12/10/24 tiotropium bromide 2.5 mcg/actuation mist for inhalation (Spiriva Respimat) 2 inh inhalation DAILY COPD 12/10/24 zolpidem 5 mg tablet (Ambien) 5 mg PO QHS SLEEP 12/10/24 OXYGEN - Supplemental ([facility] INFORMATIONAL USE ONLY) 12/11/24 acetaminophen 500 mg tablet 1,000 mg (2 x 500 mg) PO Q8 PRN Pain #0 tabs 12/11/24 cyclobenzaprine 5 mg tablet 5 mg PO Q8H PRN PRN spasms/musculoskeletal pain #15 tabs 12/11/24 oxycodone 5 mg tablet 5 mg PO Q4H PRN PRN Pain Score 4-10 3 days #12 tabs 12/11/24 Hospital Course Operations None Procedures None Physical Exam Const Constitutional Narrative: Awake. Nontoxic. Able to sit up on her own without difficulty. Very slight lower lumbar right paraspinal muscle tenderness. Weight / BMI Weight Weight: 73.028 kg Body Mass Index (BMI) 28.5 ABG / Lab / Microbiology Data 12/10/24 08:15 12/10/24 08:15 Laboratory: Laboratory Results - last 24 hr 12/10/24 07:22: Urine Color Yellow, Urine Clarity Clear, Urine pH 6.0, Ur Specific [place] 1.020, Urine Protein 30 H, Urine Glucose (UA) Normal, Urine Ketones Negative, Urine Occult Blood Negative, Urine Nitrite Negative, Urine Bilirubin Negative, Urine Urobilinogen Normal, Ur Leukocyte Esterase 25 H, Urine RBC 0 SEEN, Urine WBC 0-5 SEEN, Ur Squamous Epith Cells 0 SEEN, Urine Bacteria 0 SEEN, Urine Mucus 0 SEEN 12/10/24 08:15: Total Bilirubin 0.58, Direct Bilirubin 0.24, AST 20, ALT 18, A lkaline Phosphatase 194 H, Total Protein 8.0, Albumin 4.7, Globulin 3.4, Lipase 28 D/C Instructions DC O2, CPAP, BIPAP Needs Home O2 Discharge instructions: No Meaningful Use Info Meaningful Use Meaningful Use Diagnoses (Choose all that apply): None applicable Discharge Plan Admission Admit Date/Time: 12/10/24 10:44 Primary Reason for Your Visit: Back pain Attending Provider: Art Morejon Primary Care Provider: Tammi Myrick Instructions Additional Instructions / Restrictions: You had back pain secondary to a muscle spasm in your lower back. Treatment would be Tylenol as needed, Flexeril (cyclobenzaprine) as needed and as needed oxycodone. Use ice as well to help with that. Discharge Orders/Prescriptions Prescriptions: New acetaminophen 500 mg Tablet 1,000 mg PO Q8 PRN (Reason: Pain) Qty: 0 0RF oxycodone 5 mg Tablet 5 mg PO Q4H PRN PRN (Reason: Pain Score 4-10) 3 Days Qty: 12 0RF cyclobenzaprine 5 mg Tablet 5 mg PO Q8H PRN PRN (Reason: spasms/musculoskeletal pain) Qty: 15 0RF Continued cetirizine 10 mg tablet 10 mg PO DAILY ipratropium-albuterol 0.5 mg-3 mg(2.5 mg base)/3 mL solution for nebulization 3 ml Inhalation Q4H.RT PRN (Reason: Shortness Of Breath) omeprazole 40 mg capsule,delayed release(DR/EC) 40 mg PO DAILY budesonide-formoterol 160-4.5 mcg/actuation HFA aerosol inhaler 2 puff inhalation BID Patient Comments: INHALE 2 PUFFS BY MOUTH TWICE DAILY DIRECTED montelukast 10 MG tablet 10 mg PO DAILY aspirin 81 MG tablet,chewable 81 mg PO DAILY@0800 Qty: 30 1RF amlodipine 10 mg Tablet 10 mg PO DAILY Spiriva Respimat 2.5 mcg/actuation mist 2 inh inhalation DAILY arformoterol 15 mcg/2 mL solution for nebulization 2 ml inhalation DAILY zolpidem [Ambien] 5 mg tablet 5 mg PO QHS citalopram [Celexa] 40 mg tablet 40 mg PO DAILY diclofenac potassium 25 mg tablet 25 mg PO DAILY PRN (Reason: HIP PAIN) Patient Comments: PT UNSURE OF STRENGTH furosemide [Lasix] 40 mg tablet 40 mg PO PRN albuterol sulfate 1 INHALER inhaler 2 puff Inhalation Q4H PRN (Reason: Sob &/Or Wheezing) ([facility] OXYGEN - Supplemental ([facility] INFORMATIONAL USE ONLY) 0 .ROUTE .MEDSUPPLY Patient Comments: 2lpm w/exertion Eliquis 5 mg tablet 5 mg PO BID atorvastatin 40 mg tablet 40 mg PO QHS Qty: 90 3RF Referrals / Follow Up: Tammi Myrick MD [Primary Care Provider, Internal Medicine] Disposition Disposition (needs filled in before D/C Order can be placed): Home, Self Care Charges/Coding Visit Charges Inpatient E&M: 01569 Disch Hosp
--- NOTE | 2024-12-11 10:10 | CASEMGMT ---
Addendum entered by Carol Keith 12/11/24 11:45: DIONY JOY into pt room, pt lying in bed. Pt made aware that her O2 rx is 3L cont. Pt states that she only needs it with exertion. Pt pox on RA noted to not need oxygen. Pt states she has her pox and she will monitor her readings. Original Note: DIONY JOY into pt room, pt sitting up in bed cross legged in no distress on RA. Noted 6 cl=22. Pt states he is doing well and much better than yesterday. Pt states she lives alone and denies any concerns going home. Pt states she has oxygen through [employer] and wears with exertion only. Pt has pox. Pt states she does not have a portable tank but when her friend takes her home, he can bring the tank to the car for her to use to get in the home. Pt states she is ready for dc.
--- NOTE | 2024-12-11 10:50 | PHA.DC.COU.R ---
Pharmacy [facility] has performed discharge medication counseling for this patient. The patient was counseled on the following discharge medications and changes in medications for homegoing review. - Acetaminophen 500 mg tablet, Cyclobenzaprine 5 mg tablet, Oxycodone 5 mg tablet The Reason for Use, instructions for use, and potential side effects were reviewed for all new medications. The patient's questions regarding all of their medications were answered. The patient was able to verbally demonstrate an understanding of their discharge medications. Medications at Discharge Home Medications montelukast 10 mg tablet 10 mg PO DAILY ASTHMA SOB 02/05/18 aspirin 81 mg chewable tablet 81 mg PO DAILY@0800 ##30 02/10/18 cetirizine 10 mg tablet 10 mg PO DAILY 04/12/18 ipratropium 0.5 mg-albuterol 3 mg (2.5 mg base)/3 mL nebulization soln 3 ml inhalation Q4H.RT PRN Shortness Of Breath 01/10/19 apixaban 5 mg tablet (Eliquis) 5 mg PO BID 01/06/21 budesonide-formoterol HFA 160 mcg-4.5 mcg/actuation aerosol inhaler 2 puff inhalation BID 07/19/21 omeprazole 40 mg capsule,delayed release 40 mg PO DAILY 07/19/21 amlodipine 10 mg tablet 10 mg PO DAILY 05/13/22 atorvastatin 40 mg tablet 40 mg PO QHS #90 tabs 09/08/22 albuterol sulfate 90 mcg/actuation aerosol inhaler 2 puff inhalation Q4H PRN Sob &/Or Wheezing 12/10/24 arformoterol 15 mcg/2 mL solution for nebulization 2 ml inhalation DAILY 12/10/24 citalopram 40 mg tablet (Celexa) 40 mg PO DAILY ANXIETY 12/10/24 diclofenac potassium 25 mg tablet 25 mg PO DAILY PRN HIP PAIN 12/10/24 furosemide 40 mg tablet (Lasix) 40 mg PO PRN edema 12/10/24 tiotropium bromide 2.5 mcg/actuation mist for inhalation (Spiriva Respimat) 2 inh inhalation DAILY COPD 12/10/24 zolpidem 5 mg tablet (Ambien) 5 mg PO QHS SLEEP 12/10/24 OXYGEN - Supplemental ([facility] INFORMATIONAL USE ONLY) 12/11/24 acetaminophen 500 mg tablet 1,000 mg (2 x 500 mg) PO Q8 PRN Pain #0 tabs 12/11/24 cyclobenzaprine 5 mg tablet 5 mg PO Q8H PRN PRN spasms/musculoskeletal pain #15 tabs 12/11/24 oxycodone 5 mg tablet 5 mg PO Q4H PRN PRN Pain Score 4-10 3 days #12 tabs 12/11/24
== END 2024-12-11 12:05 | disposition home or self-care (01) ==
LOC: ED 11:13 → MS3 14:07
PROVIDERS: Emergency Provider Emergency Medicine; PCP Internal Medicine
DX: M54.9 Dorsalgia, unspecified (principal); J44.9 Chronic obstructive pulmonary disease, unspecified; Z87.891 Personal history of nicotine dependence; Z86.711 Personal history of pulmonary embolism; I10 Essential (primary) hypertension; Z82.49 Family history of ischemic heart disease and other diseases of the circulatory system; I25.10 Atherosclerotic heart disease of native coronary artery without angina pectoris; Z79.01 Long term (current) use of anticoagulants; E78.2 Mixed hyperlipidemia; Z79.82 Long term (current) use of aspirin; K21.9 Gastro-esophageal reflux disease without esophagitis; Z98.51 Tubal ligation status; R11.0 Nausea; M62.830 Muscle spasm of back
CPT/HCPCS: 74176; 80048; 80076; 81001; 83690; 85025; 94640; 96361; 96374; 96375; 96376; 99221; 99252; 99285; 99406; A4216; G0378; G0463; J2405